=== PATIENT | female | born 1985 | race Caucasian/White ===

== ENCOUNTER 2018-05-31 12:52 | Emergency (ER) | payer OTHER, SELFPAY ==
[2018-05-31 12:54] VITALS: BP 147/91; PULSE 75; RESP 16; TEMP 36.8; O2SAT 97; BMI 40.3
--- NOTE | 2018-05-31 13:16 | CT_ITS ---
STUDY: CT BRAIN WITHOUT CONTRAST REASON FOR EXAM: Female, 32 years old. Dizziness. RADIATION DOSAGE (If Supplied By Facility): CTDIvol = ( 44.99 ) mGy, DLP = ( 745.49 ) mGycm TECHNIQUE: Transaxial CT imaging of the brain was performed without administration of intravenous contrast material. Individualized dose optimization techniques were used for this CT. COMPARISON: None. FINDINGS: Normal soft tissue structures. Normal calvarium. Normal size ventricles and extra-axial spaces for the patient's age. Normal white matter tracts of the cerebral hemispheres. Normal basal ganglia and thalami. Normal brainstem. Normal cerebellum. There is no intracranial hemorrhage. There are no findings of an acute ischemic infarction. Normal visualized paranasal sinuses. CT/Brain/Head without Contrast IMPRESSION: Normal unenhanced CT scan of the brain. Electronically Signed: Shivam Arita MD at 14:49 EDT Tel [phone], Service support ,
[2018-05-31 13:58] LABS: Absolute Neutrophil Count 5.3 X10^3/uL (2.0-7.7); Basophil# 0.03 X10^3/uL; Basophil% 0.4 % (0-1); Eosinophil# 0.15 X10^3/uL; Eosinophils% 1.8 % (0-5); Hematocrit 43.3 % (37-47); Lymphocyte % 22.5 % (19-41); Mean Corp Hgb Conc 32.3 g/gl (32-36); Mean Corpuscular Hgb 29.4 pg (27.0-32.0); Mean Corpuscular Volume 90.8 fL (81-99); Mean Platelet Vol. 9.5 fl (6.2-12.0); Monocyte# 1.06 X10^3/uL; Monocyte% 12.6 % (0-10); Neutrophil # 5.29 X10^3/uL (2.7-7.7); Neutrophil % 62.6 % (47-70); POSITIVE COUNT NO; POSITIVE DIFFERENTIAL NO; POSITIVE MORPHOLOGY NO; Platelet Count 360 K/mm3 (150-450); RBC Distribution Width CV 12.6 % (11.6-14.6); RBC Distribution Width SD 41.8 fl (35.1-43.9); Red Blood Count 4.77 M/mm3 (4.2-5.4); White Blood Count 8.4 K/mm3 (4.4-11.0)
[2018-05-31 14:21] LABS: Pregnancy, Serum, hCG Quali. NEGATIVE Negative (0-9 Nonpreg)
[2018-05-31 14:30] LABS: ALB/GLOB Ratio 1.1 RATIO (0.9-2.4); AST(SGOT) 20 U/L (15-37); Alanine Aminotransfer ALT/SGPT 34 U/L (13-56); Alkaline Phosphatase 103 U/L (45-117); Anion Gap 10 (5-15); BUN 15 mg/dL (7-18); BUN/Creat Ratio 20.6 RATIO (10-20); Calcium,Total 9.3 mg/dL (8.5-10.1); Chloride 103 mmol/L (98-107); Creatinine, Serum 0.73 mg/dL (0.55-1.02); EST Glomerular Filtration Rate 97 mL/min (>60); Est Glom Filt Rate - Afr Amer 118 mL/min (>60); Estimated Creatinine Clearance 94.65 ml/min; Globulin 3.7 g/dL (2.2-4.2); Glucose 152 mg/dL (74-106); Potassium 4.2 mmol/L (3.5-5.1); Protein, Total 7.7 g/dL (6.4-8.2); Sodium Level 138 mmol/L (136-145); Thyroid Stim Hormone (TSH) 3.57 uIU/mL (0.358-3.74)
[2018-05-31] MEDS: 0.9% Normal Saline 1,000 ML 150 ML IV (14:55)
[2018-05-31 15:27] VITALS: BP 121/85; BP 124/84; BP 134/70; PULSE 70; PULSE 71
[2018-05-31 15:33] LABS: Bacteria 0 SEEN /hpf (None Seen); Mucous, Urine 0 SEEN /hpf (<or=2+); Red Blood Cells-Urine 0 SEEN /hpf (0-5); White Blood Cells 0 SEEN /hpf (0-5)
[2018-05-31 16:04] LABS: Color, Urine Yellow (Yellow); Glucose, Dipstick Normal (Normal); Ketone-Dipstick Negative (Negative); Leukocyte Esterase-Dipstick Negative /ul (Negative); Nitrite-Dipstick Negative (Negative); Occult Blood-Urine Negative /ul (Negative); Protein-Dipstick Negative (Negative); Specific Gravity, Urine 1.005 (1.002-1.030); Urine Bilirubin Dipstick Negative (Negative); Urine Clarity Clear (Clear); Urine Urobilinogen Normal (Normal); Urine pH 6.5 (5.0 - 8.0)
--- NOTE | 2018-05-31 16:17 | ED.VISSUMM ---
- ER Visit Summary Date of Service: 05/31/18 Chief Complaint: [Dizziness] History of Present Illness: The patient is a 32 F presents the emergency department with complaint of dizziness that started 2 weeks ago. Patient's had at times a hard time concentrating and some confusion. 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 Patient's been feeling lightheaded intermittently. She denies any fevers. Patient at times feels cold and clammy. Patient's had some intermittent abdominal pain since December and has had a workup including ultrasound which was unremarkable. Last menstrual period was 1 month ago. Patient does have a history of hypertension, cholesterol, and hypothyroidism. Patient has a follow-up appointment with her primary care physician in 3 days. [Patient has not had any fever or cough. She denies any chest pain.] Physical Examination: [HEENT-PERRLA, EOMI. Cranial nerves II through XII grossly intact. TMs clear. Mucous membranes moist. No adenopathy. Cardiovascular-regular rate and rhythm without murmur or ectopy Lungs-clear to auscultation, chest wall stable without crepitus or subcu emphysema Abdomen-normoactive bowel sounds, soft, nontender, no rebound or rigidity, no peritoneal signs. Neuro [id number] and heel clarke testing within normal limits, negative Romberg, negative pronator drift, fundi benign, Hallpike does not elicit any nystagmus or symptoms. Extremities-intact ?4, normal range of motion, normal pulses, atraumatic] Test Results: [CT scan of the brain without contrast showed nothing acute. CBC with differential was normal. Chemistries were normal. Glucose was slightly elevated 152. LFTs were normal. Urinalysis was normal. HCG was negative. TSH was 3.57. Orthostatics were negative.] Emergency Department Course and Treatment: [At this point etiology of symptoms unclear] Treatment Plan: [Patient advised to follow-up with her primary care physician 3-5 days] Disposition: [Discharged home in stable condition] Impression: [Dizziness-etiology uncertain Confusion-etiology uncertain Hyperglycemia] This note was generated with [employer]ire[employer] software. It may contain incorrect words, spelling, and punctuation that were not noted in review of the chart prior to signing ED Disposition - Plan for ED Patient: Chief Complaint: Dizziness Referrals: Francisco Javier Leigh [Primary Care Provider] -
[2018-05-31 16:19] LABS: Squamous Epithelial Cells - UA 0-5 SEEN /hpf (5-10)
--- NOTE | 2018-05-31 16:20 | ED.DCSUM_ITS ---
- ER Visit Summary Date of Service: 05/31/18 Chief Complaint: [Dizziness] History of Present Illness: The patient is a 32 F presents the emergency department with complaint of dizziness that started 2 weeks ago. Patient's had at times a hard time concentrating and some confusion. 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 Patient's been feeling lightheaded intermittently. She denies any fevers. Patient at times feels cold and clammy. Patient's had some intermittent abdominal pain since December and has had a workup including ultrasound which was unremarkable. Last menstrual period was 1 month ago. Patient does have a history of hypertension, cholesterol, and hypothyroidism. Patient has a follow- up appointment with her primary care physician in 3 days. [Patient has not had any fever or cough. She denies any chest pain.] Physical Examination: [HEENT-PERRLA, EOMI. Cranial nerves II through XII grossly intact. TMs clear. Mucous membranes moist. No adenopathy. Cardiovascular-regular rate and rhythm without murmur or ectopy Lungs-clear to auscultation, chest wall stable without crepitus or subcu emphysema Abdomen-normoactive bowel sounds, soft, nontender, no rebound or rigidity, no peritoneal signs. Neuro rdxo-weomva-mjhd and heel clarke testing within normal limits, negative Romberg, negative pronator drift, fundi benign, Hallpike does not elicit any nystagmus or symptoms. Extremities-intact ?4, normal range of motion, normal pulses, atraumatic] Test Results: [CT scan of the brain without contrast showed nothing acute. CBC with differential was normal. Chemistries were normal. Glucose was slightly elevated 152. LFTs were normal. Urinalysis was normal. HCG was negative. TSH was 3.57. Orthostatics were negative.] Emergency Department Course and Treatment: [At this point etiology of symptoms unclear] Treatment Plan: [Patient advised to follow-up with her primary care physician 3- 5 days] Disposition: [Discharged home in stable condition] Impression: [Dizziness-etiology uncertain Confusion-etiology uncertain Hyperglycemia] This note was generated with eleniation software. It may contain incorrect words, spelling, and punctuation that were not noted in review of the chart prior to signing ED Disposition - Plan for ED Patient: Chief Complaint: Dizziness Referrals: Francisco Javier Leigh [Primary Care Provider] -
--- NOTE | 2018-05-31 16:20 | ED.DEP ---
ED Disposition - Plan for ED Patient: Chief Complaint: Dizziness Instructions: ED Dizziness [facility] Referrals: Francisco Javier Leigh [Primary Care Provider] - 3-5 Days
[2018-05-31 16:36] VITALS: BP 137/76; PULSE 79; RESP 18; O2SAT 99
== END 2018-05-31 16:37 | disposition home or self-care (01) ==
PROVIDERS: Emergency Provider Emergency Medicine; Family Provider Family Medicine; PCP Family Medicine
DX: R42 Dizziness and giddiness (principal); R41.0 Disorientation, unspecified; R73.9 Hyperglycemia, unspecified; I10 Essential (primary) hypertension; E78.00 Pure hypercholesterolemia, unspecified; E03.9 Hypothyroidism, unspecified; Z79.899 Other long term (current) drug therapy
CPT/HCPCS: 70450; 80053; 81001; 84443; 84703; 85025; 96360; 96361; 99285; J7030; A4216

== ENCOUNTER → 2024-11-21 | Outpatient (CLI) | payer OTHER, SELFPAY ==
--- NOTE | 2024-11-21 14:56 | BI_ITS ---
MAMMOGRAPHY - BILATERAL SCREENING 3-D TOMOSYNTHESIS REASON FOR EXAM: Female, 38 years old. screening mammogram PERTINENT HISTORY: No significant family history. TECHNIQUE: 2-D mammograms and 3-D Tomosynthesis of the breast (s) were performed. CAD was performed. COMPARISON: None. FINDINGS: The breast composition is composed of scattered fibroglandular density. Scattered benign calcifications are seen. No dense spiculated masses or suspicious microcalcifications are identified. No architectural distortion is identified. There is no skin thickening or retraction. There has been no significant change since the prior study. BI/SCRN MAMM (CAD)W/BAYLEE BILAT IMPRESSION: No mammographic signs of malignancy. Routine yearly mammograms recommended. ASSESSMENT CATEGORY: BIRADS Category 1: Negative. A letter regarding these results will be sent to the patient by the facility within 30 days. FOLLOW UP RECOMMENDATION: Yearly follow up mammogram recommended. (A) Approximately 10% of breast cancers are not detected by mammography. A normal mammogram should not delay biopsy of a clinically suspicious abnormality. Electronically Signed: Joe Vallejo MD at 18:03 EST ,
== END | disposition home or self-care (01) ==
LOC: OPBI 14:56
PROVIDERS: Referring Provider Advanced Practice Midwife; Visit Provider Advanced Practice Midwife
DX: Z12.31 Encounter for screening mammogram for malignant neoplasm of breast (principal)
CPT/HCPCS: 77063; 77067

== ENCOUNTER → 2025-03-24 | Outpatient (CLI) | payer OTHER, SELFPAY ==
[2025-03-29 13:07] LABS: HPV APTIMA, High Risk Negative (Negative)
== END | disposition home or self-care (01) ==
LOC: LABSPEC 16:26
PROVIDERS: Referring Provider Obstetrics & Gynecology; Visit Provider Obstetrics & Gynecology
DX: Z12.4 Encounter for screening for malignant neoplasm of cervix (principal)
CPT/HCPCS: 87624; 88175; G0145

== ENCOUNTER → 2025-03-30 | Outpatient (CLI) | payer OTHER, SELFPAY ==
--- NOTE | 2025-03-30 07:48 | US_ITS ---
PROCEDURE: PELVIC W/ TRANSVAGINAL (USPELTVAG), 03/30/2025 REASON FOR EXAM: OVARIAN CYST FOLLOW-UP TECHNIQUE: Grayscale, color Doppler, and spectral Doppler transabdominal and transvaginal pelvic ultrasound was performed. COMPARISON: None FINDINGS: Uterus: 6.8 x 4.0 x 4.0 cm, Anteflexed. Unremarkable echotexture. Endometrium: 6 mm, unremarkable. Cervix: Unremarkable. Right ovary: 3.4 x 1.9 x 1.7 cm. Unremarkable. Normal low resistance arterial waveforms. Left ovary: 4.9 x 4.4 x 4.0 cm. 3.9 x 3.6 x 2.9 cm simple appearing unilocular cyst. Normal low resistance arterial waveforms. Free fluid: None visualized. Other: Estimated bladder volume 178 mL. US/Pelvic w/ Transvaginal IMPRESSION: 1. 3.9 cm simple appearing LEFT ovarian cyst. Comparison with reported outside imaging would be helpful. If this has persisted for an extended period of time or has enlarged, this may reflect a benign neopl asm such as a cystadenoma. If follow-up interval is shorter, this may reflect a functional cyst. Per O-RADS this is O-RADS 2, n o specific follow-up required in a premenopausal patient, however if this has enlarged, follow-up may be prudent. 2. Additional description as above. Reading Location: [id number]
== END | disposition home or self-care (01) ==
LOC: OPUS 07:47
PROVIDERS: Referring Provider Obstetrics & Gynecology; Visit Provider Obstetrics & Gynecology
DX: N83.209 Unspecified ovarian cyst, unspecified side (principal)
CPT/HCPCS: 76830; 76856

== ENCOUNTER → 2025-05-12 | Outpatient (CLI) | payer OTHER, SELFPAY ==
--- NOTE | 2025-05-12 16:42 | US_ITS ---
PROCEDURE: PELVIC (NON ) 05/12/2025 REASON FOR EXAM: FU US FROM OVARIAN CYST TECHNIQUE: Transabdominal pelvic ultrasound COMPARISON: 03/30/2025. FINDINGS: Normal uterus measuring 7.1 x 4.3 x 2.7 cm. Normal right ovary measuring 3.6 x 3.1 x 2.4 cm. Normal left ovary measuring 2.5 x 1.9 x 1.6 cm. Normal bilateral ovarian flow without evidence of ovarian torsion. The endometrium is normal in thickness measuring 3.1 mm. Normal cervix. No free fluid in the pelvic cul-de-sac. Underdistended bladder measuring 99 cc in volume. US/Pelvic (Non ) IMPRESSION: Unremarkable exam. No residual left ovarian cyst. Reading [facility]
== END | disposition home or self-care (01) ==
LOC: US 16:40
PROVIDERS: Referring Provider Obstetrics & Gynecology; Visit Provider Obstetrics & Gynecology
DX: N83.299 Other ovarian cyst, unspecified side (principal)
CPT/HCPCS: 76856

== ENCOUNTER → 2025-08-05 | Outpatient (CLI) | payer OTHER, SELFPAY ==
--- OUTSIDE RECORDS SUMMARY | 2025-08-05 10:35 | XMS RPT_ITS | CCD ---
Author Organization [facility] CliniSyoh Care Team Providers Care Mold Dumper Name Role Phone No, Physician Unavailable Unavailable Unavailable Unavailable Unavailable Rodrick Bangura Unavailable Unavailable Rodrick Bangura Unavailable Unavailable Aaron Leigh Unavailable Unavailable [place], Michelle C Unavailable Unavailable [place], Michelle C Unavailable Unavailable [place], Michelle C Unavailable Unavailable [place], Michelle C Unavailable Unavailable [place], Michelle C Unavailable Unavailable [place], Michelle C Unavailable Unavailable [place], Michelle C Unavailable Unavailable [place], Michelle C Unavailable Unavailable [place], Michelle C Unavailable Unavailable [place], Michelle C Unavailable Unavailable Aaron Leigh Unavailable Unavailable Aaron Leigh Unavailable Unavailable Aaron Leigh Unavailable Unavailable Aaron Leigh Unavailable Unavailable Aaron Leigh Primary Care Provider Aaron Leigh Primary Care Provider NO, PHYSICIAN Primary Care Unavailable CHRISTIANA YOUNG Attending Unavaila AARON Teague Primary Care Unavailable MIRNA BLANKENSHIP Attending Unavailab le AARON LEIGH Primary Care Unavailable MEGHNA SANTOS Attending Unavail able AARON LEIHG Primary Care Unavailable CHRISTIANA YOUNG Attending Unavaila ble CHRISTIANA YOUNG Admitting Unavaila ble CHRISTIANA YOUNG Referring Unavaila AARON Teague Primary Care Unavailable Aaron Leigh Primary Care Provider [phone] Aaron Leigh Primary Care Provider Aaron Leigh Primary Care Provider Aaron Leigh Primary Care Provider No, Physician Primary Care Provider Unavailabl e Lu OLEA, Aaron Vargas Primary Care Provider Lu OLEA, Aaron Vargas Primary Care Provider [phone] Aaron Leigh MD Primary Care Provider Aaron Leigh MD Primary Care Provider Aaron Leigh MD Primary Care Provider [phone] Aaron Leigh Primary Care Provider Aaron Leigh MD Primary Care Provider Aaron Leigh MD Primary Care Provider Aaron Leigh MD Primary Care Provider Carmen Mckeon PA-C Primary Care Provider [phone] Mike HERNANDEZ Carmen Primary Care Provider [phone] CARMEN MCKEON Primary Care Unavailable BRIT GARCÍA Referring Unavailable BRIT GARCÍA Attending Unavailable BRIT GARCÍA Attending Unavailable MIKE CARMEN Primary Care Unavailable BRIT GARCÍA Referring Unavailable RILEY ALVAREZA Attending Unavailable MIKE CARMEN Primary Care Unavailable [facility], JESUS Referring [facility]available [facility] Primary Care Unavailable ELISABETH GREGG Referring Unavailable [facility], JESUS Attending Unavailable MIKE CARMEN Primary Care Unavailable NOEMI ROBIN Referring Unavailable NOEMI ROBIN Attending Unavailable KIM, JESUS Attending Unavailable MIKECARMEN Referring Unavailable [facility] Primary Care Unavailable [facility], JESUS Attending Unavailable MIKE CARMEN Referring Unavailable [facility] Primary Care Unavailable Yolande SUE, Coreen Aguila Unavailable AARON LEIGH Primary Care Unavailable KENDRA HARRY Attending Unavailable KIM, JESUS BARBARA Admitting Unavailable KIM, JESUS BARBARA Referring Unavailable AARON LEIGH Primary Care Unavailable KENDRA HARRY Attending Unavailable KIM, JESUS BARBARA Admitting Unavailable KIM, JESUS BARBARA Referring Unavailable TOMCHAK, AARON BRAYAN Primary Care Unavailable KENDRA HARRY Attending Unavailable KIM, JESUS BARBARA Admitting Unavailable KIM, JESUS BARBARA Referring Unavailable [facility] AARON VARGAS Primary Care Unavailable KENDRA HARRY Attending Unavailable KIM, JESUS BARBARA Referring Unavailable KIM, JESUS BARBARA Admitting Unavailable Carmen Mckeon PA-C Primary Care Provider Yolande LANDRYN-VICE PRESIDENT [employer], Coreen Aguila Unavailable Dr. Millicent Cervantes DO Attending Provider Dr. Millicent Cervantes DO Referring Provider CARMEN MCKEON Primary Care Provider [phone] CARMEN MCKEON Primary Care Provider Unavailab CARMEN Lo Referring Provider Unavailable ANTWON MARTIN Attending [facility]available [facility] AARON BRAYAN Primary Care Unavailable [facility] Primary Care Unavailable ALEX CROWLEYA Eileen Attending Unavailable OSORIO LAGUNA Attending Unavailable [facility], AARON VARGAS Primary Care Unavailable [facility] AARON VARGAS Primary Care Unavailable CROWLEYSHAKIR WALDRON Attending Unavailable [facility], AARON BRAYAN Primary Care Unavailable CROWLEY, SHAKIR M Attending Unavailable [facility] Primary Care Unavailable CROWLEYALEXA M Attending Unavailable [facility], AARON BRAYAN Primary Care Unavailable CROWLEY SHAKIR M Attending Unavailable ANTWON MARTIN Attending Unavailable [facility] AARON BRAYAN Primary Care Unavailable [facility] Primary Care Unavailable ANTWON MARTIN Attending Unavailable [facility], [facility] Primary Care Unavailable FANANTWON GIL Attending Unavailable FANELLOANTWON Attending Unavailable [facility] Primary Care Unavailable FANANTWON GIL Attending Unavailable [facility] Primary Care Unavailable [facility] Primary Care Unavailable ANTWON MARTIN Attending Unavailable KIM, JESUS Referring Unavailable CARMEN MCKEON Primary Care Unavailable DURGA II, GUILLERMO B Attending Unavailable CARMEN MCKEON Attending Unavailable SELF, SELF Referring Unavailable CARMEN MCKEON Primary Care Unavailable CARMEN MCKEON Primary Care Unavailable DURGA II, GUILLERMO B Referring Unavailable DURGA II, GUILLERMO B Attending Unavailable CARMEN MCKEON Primary Care Unavailable CARMEN MCKEON Referring Unavailable COREEN LANIER Attending Unavailable [facility] Primary Care Unavailable KIM, JESUS Referring Unavailable KIM, JESUS Attending Unavailable CARMEN MCKEON Attending Unavailable [facility] Primary Care Unavailable SELF, SELF Referring Unavailable [facility] Primary Care Unavailable MIKE[facility] Primary Care Unavailable SELF, SELF Referring Unavailable NOEMI ROBIN Attending Unavailable [facility] Primary Care Unavailable TAUSCH, ROBSON Referring Unavailable TAUSCH, ROBSON Attending Unavailable CARMEN MCKEON Referring Unavailable KIM, JESUS Attending Unavailable [facility] Primary Care Unavailable KIM, JESUS Attending Unavailable KIM, JESUS Referring Unavailable [facility] Primary Care Unavailable [facility] Primary Care Unavailable CARMEN MCKEON Attending Unavailable SELF, SELF Referring Unavailable MIKE, CARMEN Referring Unavailable KIM, JESUS Attending Unavailable [facility] Primary Care Unavailable [facility] Primary Care Unavailable DURGA II, GUILLERMO B Attending Unavailable DURGA II, GUILLERMO B Referring Unavailable KIM, JESUS Attending Unavailable KIM, JESUS Referring Unavailable [facility] Primary Care Unavailable [facility] Primary Care Unavailable DURGA II, GUILLERMO B Attending Unavailable DURGA II, GUILLERMO B Referring Unavailable [facility] Primary Care Unavailable SELF, SELF Referring Unavailable NOEMI ROBIN Attending Unavailable [facility] Primary Care Unavailable DURGA II, GUILLERMO B Referring Unavailable DURGA II, GUILLERMO B Attending Unavailable CARMEN MCKEON Referring Unavailable KIM, JESUS Attending Unavailable [facility] Primary Care Unavailable [facility] Primary Care Unavailable SELF, SELF Referring Unavailable SHANICE BERGER Attending Unavailable [facility] Primary Care Unavailable CARMEN MCKEON Attending Unavailable SELF, SELF Referring Unavailable [facility] Primary Care Unavailable TAUSCH, ROBSON Referring Unavailable OMID COFFEY Attending Unavailable [facility] Primary Care Unavailable DURGA II, GUILLERMO B Attending Unavailable DURGA II, GUILLERMO B Referring Unavailable CARMEN MCKEON Attending Unavailable SELF, SELF Referring Unavailable MIKE, [facility] Primary Care Unavailable CARMEN MCKEON Attending Unavailable [facility] Primary Care Unavailable CARMEN MCKEON Referring Unavailable CARMEN MCKEON Primary Care Unavailable CARMEN MCKEON Attending Unavailable SELF, SELF Referring Unavailable BALBIR MALAGON Attending Unavailable ELISABETH GREGG Adamaris Referring Unavailable CARMEN MCKEON Primary Care Unavailable Vande Velde , Dr. Ricks Attending Provider Dr. Millicent Cervantes DO Referring Provider Diamante Khalil Referring Unavailable Diamante Khalil Attending Unavailable TERE, Primary Care Unavailable Vande Velde, Millicent Referring Unavailabl e Vande Velde, Millicent Attending Unavailabl e TERE, HERRERA Primary Care Unavailable Vande Velde, Millicent Attending Unavailabl e Vande Velde, Millicent Attending Unavailabl e Vande Velde, Millicent Attending Unavailabl e TERE, Primary Care Unavailable Vande Velde, Millicent Attending Unavailabl e TERE, HERRERA Referring Unavailable Vande Velde, Millicent Referring Unavailabl e Vande Velde, Millicent Attending Unavailabl e Vande Velde, Millicent Referring Unavailabl e Vande Velde, Millicent Attending Unavailabl e Allergies Allergy Classification Reported Allergen(s) Allergy Type Date of Onset Reaction(s) Facility Bee/Wasp/Ant Venom (4 sources) bee venom Substance Allergy 5 [facility] (20 sources) Bee Venom Protein (Honey Bee); Translations: [Unknown] Propensity to adverse reactions to drug 5 [facility] (20 sources) Seasonal allergy Propensity to adverse reactions to drug 0 [facility] (1 source) Bees Allergy to substance 5 [facility] (20 sources) *Animal Dander Propensity to adverse reactions to substance 3 [facility] (20 sources) Animal Dander; Translations: [ANIMAL DANDER] Propensity to adverse reactions to drug 3 Other (See Comments) [facility] (1 source) bee venom Propensity to adverse reactions to drug 5 [facility] Medications Current Medications Medication Drug Class(es) Dates Sig (Normalized) Sig (Original) Accu-Chek Guide Me Glucose Mtr Misc (20 sources) Start: 12-03-2021 Accu-Chek Guide Me Glucose Mtr Mis USE TO TEST BLOOD SUGAR ONCE DAILY 12/03/2021 Active Start: 12-03-2021 Accu-Chek Guid e Me Glucose [facility] Misc USE TO TEST BLOOD SUGAR ONCE DAILY 0 12/03/2021 Active amoxicillin 500 mg oral capsule (1 source) Penicillin-class Antibacterial Start: 02-11-2020 End: 02-21-2020 take 1 capsule by mouth three times daily amoxicillin 500 MG capsule Take 1 capsule by mouth 3 times daily for 10 days. 30 capsule 0 02/11/2020 02/21/2020 Active amoxicillin 875 mg / clavulanate 125 mg oral tablet (3 sources) Penicillin-class Antibacterial Start: 11-28-2023 End: 12-08-2023 take 1 tablet by mouth every twelve hours Amoxicillin-clavula eliot 875-125 MG tablet Indications: Acute bacterial rhinosinusitis Take 1 tablet by mouth every 12 hours for 10 days. 20 tablet 0 11/28/2023 12/08/2023 Active Start: 02-05-2019 End: 02-19-2019 take 1 tablet by mouth twice daily amoxicillin-clavulanate (AUGMENTIN) 875-125 mg per tablet Indications: Frontal sinusitis, unspecified chronicity Take 1 (one) tablet by mouth 2 (two) times a day for 14 days . 28 tablet 0 02/05/2019 02/19/2019 Active apple cider vinegar 500 mg o ral tablet (20 sources) Start: 03-24-2025 Apple Cider Vi john 500 mg tablet Active mg PO March 24, 2025 12:00am [employer] VINE GAR PO Take by mouth daily. Active ASHWAGANDHA PO (7 sources) ASHWAGANDHA PO T jean marie 600 mg by mouth 2 times daily. KSM-66 0 Active aspirin 81 mg delayed release oral tablet (20 sources) Platelet Aggregation Inhibitor, Nonsteroidal Anti-inflammatory Drug Start: take 1 tablet by mouth once daily Aspirin 81 mg tablet,delayed release (DR/EC) Active 81 mg PO daily March 24, 2025 12:00am Start: 03-24-2025 End: 04-16-2022 take 1 tablet by mouth once daily Aspirin 81 mg tablet,delayed release (DR/EC) Active 81 mg PO daily March 24, 2025 12:00am take 1 tablet by zenon th once daily Aspirin [address] tablet Take 1 tablet by mouth daily. Active atenolol 25 mg oral tablet (20 sources) beta-Adrenergic Archana Start: 03-10-2024 take 2 tablets by mouth once daily Atenolol (Tenormin) 25 mg tablet Active 50 mg PO DAILY March 10, 2024 4:14pm Start: 12-17-2023 End: 06-05-2025 take 1 tablet by mouth once daily Atenolol 50 MG tablet Indications: Paroxysmal atrial fibrillation Take 1 tablet by mouth daily. 90 tablet 1 06/05/2025 Active Start: 05-31-2018 End: 03-10-2024 take 1 tablet by mouth once daily Atenolol (Tenormin) 25 MG tablet Discontinued 25 mg PO DAILY May 31, 2018 12:00am March 10, 2024 4:16pm Start: 12-23-2016 take 0.5 tablet by m outh once daily atenolol (TENORMIN) 25 MG tablet Take 0.5 (one-half) tablet (12.5 mg total) by mouth daily . 12/23/2016 Active Start: 12-23-2016 atenolol 25 MG tablet Take 12.5 mg by mouth. 0 12/23/2016 Active Comment on above: Take 0.5 tablets by mouth once daily. azithromycin 250 mg oral tablet (1 source) Macrolide Antimicrobial Start: 12-07-19 End: 12-12-19 Azithromycin (Zithromax Z-Valeria) 250 MG tablet Take 2 tablets (500 mg) on Day 1, then 1 tablet (250 mg) daily on Days 2-5 6 tablet 0 12/07/2023 12/12/2023 Active bacitracin 0.5 unt/mg topical ointment (1 source) Start: 06-09-20 End: 06-10-20 bacitracin ointment 1 Application biotin 10 mg oral capsule (5 sources) Biotin 10 MG cap rima Take by mouth. 0 Active Blood Glucose Monitoring Suppl (ONE TOUCH ULTRA 2) w/Device Kit (2 sources) Start: 03-26-20 Blood Glucose Monitoring Suppl (ONE TOUCH ULTRA 2) w/Device Kit USE TO TEST BLOOD GLUCOSE ONCE DAILY 0 03/26/2023 Active Boswellia-Glucosamine -Vit D (OSTEO BI-FLEX ONE PER DAY PO) (12 sources) Boswellia-Glucos garcia e-Vit D (OSTEO BI-FLEX ONE PER DAY PO) Take by mouth. 0 Active cefdinir 300 mg oral capsule (1 source) Cephalosporin Antibacterial Start: 01-20-20 End: 01-31-20 take 1 capsule by mouth twice daily cefdinir (OMNICEF) 300 MG capsule Take 1 (one) capsule (300 mg total) by mouth 2 (two) times a day for 10 days . 20 capsule 0 01/20/2019 01/30/2019 Active cephalexin 500 mg oral capsule (4 sources) Cephalosporin Antibacterial Start: 09-02-20 End: 09-12-20 take 1 capsule by mouth twice daily cephALEXin 500 MG capsule Indications: Paronychia of finger, unspecified laterality Take 1 capsule by mouth 2 times daily for 10 days. 20 capsule 09/02/2024 09/12/2024 Active Start: 02-24-2023 End: 03-03-2023 take 1 capsule by mouth every twelve hours cephALEXin 500 MG capsule Take 1 capsule by mouth every 12 hours for 7 days. 14 capsule 0 02/24/2023 03/03/2023 Active Start: 10-12-2020 End: 10-19-2020 take 1 capsule by mouth twice daily cephALEXin 500 MG capsule Indications: Pierced ear infection, left, initial encounter Take 1 capsule by mouth 2 times daily for 7 days. 14 capsule 0 10/12/2020 10/19/2020 Active Start: 05-15-2020 End: 05-25-2020 take 1 capsule by mouth twice daily cephALEXin 500 MG capsule Indications: Pierced ear infection, right, initial encounter Take 1 capsule by mouth 2 times daily for 10 days. 20 capsule 0 05/15/2020 05/25/2020 Active cetirizine hydrochloride 10 mg oral tablet (20 sources) Histamine-1 Receptor Antagonist Start: 06-23-2024 End: 12-19-2024 take 1 tablet by mouth once daily Cetirizine 10 MG tablet Indications: Chronic sinusitis, unspecified location , Allergic rhinitis due to dust Take 1 tablet by mouth daily. 30 tablet 2 09/20/2024 Active Start: 12-24-2023 End: 06-18-2024 take 1 tablet by mouth once daily Cetirizine 10 MG tablet Indications: Chronic sinusitis, unspecified location , Allergic rhinitis due to dust Take 1 tablet by mouth daily. 30 tablet 2 03/20/2024 06/18/2024 Active ciprofloxacin 500 mg oral tablet (1 source) Quinolone Antimicrobial Start: 06-13-2021 End: 06-16-2021 take 1 tablet by mouth twice daily ciprofloxacin 500 MG tablet Take 1 tablet by mouth 2 times daily for 3 days. 6 tablet 0 06/13/2021 06/16/2021 Active COLOSTRUM PO (8 sources) Start: 11-11-2024 COLOSTRUM PO 11/11/2024 Active cyclobenzaprine hydrochloride 10 mg oral tablet (1 source) Muscle Relaxant Start: 10-19-2019 End: 10-29-2019 take 1 tablet by mouth twice daily as needed for muscle spasms cyclobenzaprine (FLEXERIL) 10 MG tablet Take 1 (one) tablet (10 mg total) by mouth 2 (two) times a day as needed for muscle spasms . 30 tablet 0 10/19/2019 10/29/2019 Active diclofenac sodium 75 mg delayed release oral tablet (4 sources) Nonsteroidal Anti-inflammatory Drug Start: 05-24-2024 End: 06-03-2024 take 1 tablet by mouth twice daily diclofenac EC [address] tablet Indications: Posterior tibial tendinitis of right lower extremity , Posterior tibial tendon dysfunction, bilateral Take 1 tablet by mouth 2 times daily for 10 days. 20 tablet 1 05/24/2024 06/03/2024 Active Start: 12-20-2019 End: 01-19-2020 diclofenac sodium 1 % Gel Ap ply 2 (two) g topically 4 (four) times a day . 240 g 0 12/20/2019 01/19/2020 Active docosahexaenoic acid 120 mg / eicosapentaenoic acid 180 mg oral capsule (5 sources) Bagley-3 Fatty Ac ids (Fish Oil) 1000 MG capsule Take by mouth. 0 Active empagliflozin 25 mg oral tablet (20 sources) Sodium-Glucose Cotransporter 2 Inhibitor Start: 025 take 1 tablet by mouth once daily Empagliflozin (Jardiance) 25 mg tablet Active 25 mg PO daily March 24, 2025 12:00am Start: 09-26-2024 End: 12-06-2024 take 1 tablet by mouth once daily before breakfast Empagliflozin (Jardiance) 10 MG tablet Indications: Type 2 diabetes mellitus with hyperglycemia, without long-term current use of insulin Take 1 tablet by mouth every morning before breakfast. 30 tablet 3 09/26/2024 12/06/2024 Discontinued Start: 04-14-2024 End: 04-14-2024 take 1 tablet by mouth once daily before breakfast Empagliflozin (Jardiance) 10 MG tablet Indications: Type 2 diabetes mellitus with hyperglycemia, without long-term current use of insulin Take 1 tablet by mouth every morning before breakfast. 30 tablet 3 04/14/2024 Active escitalopram 10 mg oral tablet (20 sources) Serotonin Reuptake Inhibitor Start: 12-07-2024 End: 06-05-2025 take 1 tablet by mouth once daily Escitalopram Oxalate (Lexapro) 10 mg tablet Active 10 mg PO daily March 24, 2025 12:00am Start: 12-03-2021 End: 12-07-2024 take 1 tablet by mouth once daily escitalopram oxalate (LEXAPRO) 5 MG tablet Take 1 (one) tablet (5 mg total) by mouth daily . 12/03/2021 Active Flaxseed, Linseed, (GROUND FLAX SEEDS PO) (8 sources) Start: 11-11-2024 Flaxseed, Rossy eed, (GROUND FLAX SEEDS PO) 11/11/2024 Active fluticasone propionate 0.05 mg/actuat metered dose nasal spray (20 sources) Corticosteroid Start: 03-24-2025 take 50 ug nasal route once daily Fluticasone Propionate (Flonase Allergy Relief) 50 mcg/actuation spray,suspension Active 1 NMA INTRANASAL daily March 24, 2025 12:00am administer into each nostril Start: 11-16-2023 End: 11-16-2023 fluticasone 50 MCG/ACT Suspe nsion nasal spray Indications: Nasal congestion 2 sprays by Nasal route daily. 16 g 1 11/16/2023 Active Icxcztm-Rotswv-Ii Chondr-MSM 485-718-440-83 MG tablet (8 sources) Start: 11-04-2024 Aqsytaj-Phvsfa-Yn Chondr-MSM 011-129-432-83 MG tablet 11/04/2024 Active 12 hr guaiFENesin 600 mg extended release oral tablet (1 source) Start: 01-20-2019 End: 01-30-2019 take 1 tablet by mouth twice daily guaiFENesin (MUCINEX) 600 mg 12 hr tablet Take 1 (one) tablet (600 mg total) by mouth 2 (two) times a day for 10 days . 20 tablet 0 01/20/2019 01/30/2019 Active HERBAL PRODUCT (10 sources) HERBAL PRODUCT Glucosamine/Collagen/V itamin C po daily Active 3 ml insulin glargine 100 unt/ml pen injector (20 sources) Insulin Analog Start: 06-08-2024 End: 12-06-2024 Lantus Solostar U-100 Insulin 100 unit/mL (3 mL) InPn Inject 20 Units under the skin Every evening as needed. 12/27/2024 Active Start: 03-10-2024 End: 08-01-2025 Insulin Glargine (Lantus Miley ostar U-100 Insulin) 100 unit/mL (3 mL) insulin pen Discontinued 20 U SC EVERY EVENING March 10, 2024 12:00am August 01, 2025 9:28am Start: 01-19-2024 End: 04-14-2024 Lantus SoloStar 100 UNIT/ML Solution Pen-injector injection Indications: Type 2 diabetes mellitus with hyperglycemia, without long-term current use of insulin Inject 20 Units under the skin Every evening as needed. 15 mL 04/14/2024 Active Lantus SoloStar 100 UNIT/ML Solution Pen-injector injection Inject 15 Units under the skin Every evening as needed. 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 90 tablet 1 11/16/2023 Active Start: 03-22-2020 levothyroxine 125 MCG tablet Take 100 mcg by mouth daily. 100mcg 0 03/22/2020 Active Start: 05-31-2018 End: 03-10-2024 take 1 tablet by mouth once daily Levothyroxine 125 MCG tablet Discontinued 125 ug PO DAILY May 31, 2018 12:00am March 10, 2024 4:14pm Start: 12-31-2015 take 1 tablet by zenon th once daily levothyroxine (SYNTHROID, LEVOTHROID) 100 MCG tablet Take 1 (one) tablet (100 mcg total) by mouth once daily . 12/31/2015 Active Start: 12-31-2015 End: 05-15-2020 take 1 tablet by mouth once daily levothyroxine (SYNTHROID, LEVOTHROID) 112 MCG tablet Take 1 (one) tablet (112 mcg total) by mouth once daily . 0 12/31/2015 Active Comment on above: Take 1 tablet by zenon th once daily. lidocaine 0.05 mg/mg medicated patch (4 sources) Antiarrhythmic, Amide Local Anesthetic Start: 12-20-19 End: 01-19-20 20 apply 1 dose transdermal route once daily, then apply 1 dose transdermal route every twelve hours lidocaine (LIDODERM) 5 % patch Place 1 (one) patch on the skin daily Remove & Discard patch within 12 hours or as directed by . 30 patch 0 12/20/2019 01/19/2020 Active lisinopril 5 mg oral tablet (20 sources) Angiotensin Converting Enzyme Inhibitor Start: 06-23-20 17 take 1 tablet by mouth once daily Lisinopril (Zestril) 5 MG tablet Active 5 mg PO DAILY May 31, 2018 12:00am metFORMIN hydrochloride 500 mg oral tablet (20 sources) Biguanide Start: 03-10-20 24 take 2 tablets by mouth twice daily Metformin 500 mg tablet Active 1000 mg PO TWICE A DAY March 10, 2024 4:15pm Start: 02-26-2023 End: 03-10-2024 take 1 tablet by mouth twice daily Metformin 500 mg tablet Discontinued 500 mg PO TWICE A DAY February 26, 2023 12:00am March 10, 2024 4:16pm Start: 12-01-2018 End: 06-05-2025 take 2 tablets by mouth twice daily, then take 2 tablets by mouth twice daily metFORMIN-XR 500 MG Tab SR 24 HR Indications: Type 2 diabetes mellitus without complication, without long-term current use of insulin Take 2 tablets by mouth 2 times daily. 2 tablets bid 360 tablet 1 06/05/2025 Active Start: 12-01-2018 take 1 tablet by zenon once daily at breakfast metFORMIN (GLUCOPHAGE-XR) 500 MG 24 hr tablet Take 1 (one) tablet (500 mg total) by mouth daily with breakfast . 12/01/2018 Active Start: 12-01-2018 metFORMIN-XR 5 00 MG Tab SR 24 HR 2 times daily. 0 12/01/2018 Active Start: 12-01-2018 metFORMIN (GLU COPHAGE-XR) 500 MG 24 hr tablet methylPREDNISolone (20 sources) Corticosteroid Start: 06-23-2022 methylPREDNISo lone (Medrol, Valeria,) 4 mg tablet follow package directions . 21 tablet 06/23/2022 Active Start: 06-23-2022 methylPREDNISo lone (Medrol, Valeria,) 4 mg tablet follow package directions . 21 tablet 0 06/23/2022 Active Start: 12-02-2020 methylPREDNIso lone 4 MG Tab Therapy Pack tablet Indications: Strain of lumbar region, initial encounter Take as directed PO 21 tablet 0 12/02/2020 Active Start: 10-19-2019 End: 04-16-2022 methylPREDNISolone (Medrol, Valeria,) 4 mg tablet follow package directions . 21 tablet 0 10/19/2019 04/16/2022 Discontinued (Error) Start: 10-19-2019 methylPREDNISo lone (Medrol, Valeria,) 4 mg tablet follow package directions . 21 tablet 0 10/19/2019 Active Misc. Devices Misc (20 sources) Mounjaro 2.5 mg/0.5 mL Pen (20 sources) Start: 02-03-2023 inject 2.5 mg by subcutaneous injection every week Mounjaro 2.5 mg/0.5 mL Pen INJECT 2.5MG SUBCUTANEOUS ROUTE EVERY WEEK FOR 4 WEEKS 02/03/2023 Active Start: 02-03-2023 inject 2.5 mg by sub cutaneous injection every week Mounjaro 2.5 mg/0.5 mL Pen INJECT 2.5MG SUBCUTANEOUS ROUTE EVERY WEEK FOR 4 WEEKS 0 02/03/2023 Active Mounjaro 5 mg/0.5 mL Pen (2 sources) inject 5 mg by subcutaneous injection every week Mounjaro 5 mg/0.5 mL Pen inject 5 mg under the skin once a week. Active Mounjaro 5 MG/0.5ML Solution Pen-injector (2 sources) Start: inject 5 mg by subcutaneous injection every week Mounjaro 5 MG/0.5ML Solution Pen-injector INJECT 5MG BY SUBCUTANEOUS ROUTE EVERY WEEK 0 03/02/2023 Active Multiple Vitamins-Minerals (WOMENS MULTI PO) (2 sources) Start: Multiple Vitamins-Minerals (WOMENS MULTI PO) 03/14/2025 Active nitrofurantoin, macrocrystals 25 mg / nitrofurantoin, monohydrate 75 mg oral capsule (2 sources) Nitrofuran Antibacterial Start: End: take 1 capsule by mouth twice daily Nitrofurantoin, macrocrystal-monohy drate, 100 MG capsule Take 1 capsule by mouth 2 times daily for 5 days. Take w/ food/milk 10 capsule 03/17/2024 03/22/2024 Active Start: 05-27-2021 End: 06-01-2021 take 1 capsule by mouth twice daily nitrofurantoin, macrocrystal-monohydrate , 100 MG capsule Take 1 capsule by mouth 2 times daily for 5 days. Take w/ food/milk 10 capsule 0 05/27/2021 06/01/2021 Active nitroglycerin 0.4 mg sublingual tablet (17 sources) Nitrate Vasodilator Start: 06-30-2024 nitroGLYCERIN 0.4 MG tablet SL Indications: Anginal syndrome Place 1 tablet under tongue every 5 minutes as needed for Chest pain. max = 3 doses. If CP persists after 3rd dose, call 911 25 tablet 1 06/30/2024 Active norethindrone 0.35 mg oral tablet (20 sources) Start: 04-15-2023 take 1 tablet by mouth once daily Norethindrone 0.35 MG tablet TAKE 1 TABLET BY MOUTH ONCE DAILY AT THE SAME TIME 0 04/15/2023 Active Start: 08-25-2022 norethindrone (MICRONOR) 0.35 mg tablet 08/25/2022 Active Start: 08-25-2022 norethindrone (MICRONOR) 0.35 mg tablet Norethindrone (E RRIN PO) Take by mouth. 0 Active ofloxacin 3 mg/ml otic solution (1 source) Quinolone Antimicrobial Start: 09-21-2023 End: 10-01-2023 ofloxacin (Floxin Otic) 0.3 % solution Indications: Acute diffuse otitis externa of right ear 5 drops by Otic route 2 times daily for 10 days. 10 mL 0 09/21/2023 10/01/2023 Active pantoprazole 40 mg delayed release oral tablet (20 sources) Proton Pump Inhibitor Start: 07-08-2024 End: 07-08-2024 40 mg, Intravenous, ONCE, 1 dose, On Thu07/08/24 at 2000, Dilute each 40 mg vial with 10 mL of NS. All bolus doses, whether 40 mg or 80 mg, should be administered over at least two minutes., Indications: GERD Start: 01-21-2024 End: 05-19-2025 take 1 tablet by mouth once daily Pantoprazole 40 mg tablet,delayed release (DR/EC) Discontinued 40 mg PO DAILY March 10, 2024 12:00am May 19, 2025 2:27pm potassium citrate 10 meq extended release oral tablet (20 sources) Start: 08-08-2024 End: 11-02-2025 take 1 tablet by mouth twice daily potassium citrate 10 MEQ (1080 MG) Tab CR Take 1 tablet by mouth 2 times daily. 60 tablet 11 11/07/2024 11/02/2025 Active predniSONE (20 sources) Start: 12-07-2023 predniSONE 10 MG (21) Tab Therapy Pack Take 6 pills on day 1, then 5, 4, 3, 2 and 1 each day sequentially 21 Each 0 12/07/2023 Active Start: 10-18-2021 End: 10-23-2021 take 1 tablet by mouth twice daily predniSONE 20 MG tablet Indications: Acute upper respiratory infection Take 1 tablet by mouth 2 times daily for 5 days. 10 tablet 0 10/18/2021 10/23/2021 Active Start: 12-08-2019 predniSONE (DE LTASONE) 20 MG tablet Indications: Chronic right-sided thoracic back pain Take 3 tablets for 4 days, 2 tablets for 4 days, 1 tablet for 4 days and 1/2 tablet for 2 days with food. . 25 tablet 0 12/08/2019 Active QUEtiapine 25 mg oral tablet (2 sources) Atypical Antipsychotic Start: 06-05-2025 take 0.5 tablet by mouth at bedtime QUEtiapine 25 MG tablet Indications: Insomnia, unspecified type Take 0.5 tablets by mouth at bedtime. 30 tablet 1 06/05/2025 Active rosuvastatin calcium 10 mg oral tablet (20 sources) HMG-CoA Reductase Inhibitor Start: 01-12-2025 End: 06-14-2025 take 1 tablet by mouth once daily Rosuvastatin (Crestor) 10 mg tablet Active 10 mg PO daily March 24, 2025 12:00am Start: 02-26-2023 End: 03-10-2024 take 1 tablet by mouth once daily Rosuvastatin (Crestor) 5 mg tablet Discontinued 5 mg PO DAILY February 26, 2023 12:00am March 10, 2024 4:15pm Start: 12-03-2021 End: 09-02-2024 take 1 tablet by mouth once daily Rosuvastatin 10 MG tablet Indications: Abnormally low high density lipoprotein (HDL) cholesterol with hypertriglyceridemia Take 1 tablet by mouth daily. 90 tablet 1 01/12/2025 Active take 1 tablet by zenon th once daily Rosuvastatin 40 MG tablet Take 1 tablet by mouth daily. Active Semaglutide,0.25 or 0.5MG/DO S, (Ozempic, 0.25 or 0.5 MG/DOSE,) 2 MG/3ML Solution Pen-injector (8 sources) Start: 04-14-2024 Semaglutide,0. 25 or 0.5MG/DOS, (Ozempic, 0.25 or 0.5 MG/DOSE,) 2 MG/3ML Solution Pen-injector Indications: Type 2 diabetes mellitus with hyperglycemia, without long-term current use of insulin Start 0.25 mg subcutaneous once a week x 4 weeks, then increase up to 0.5 mg subcutaneous once a week. 3 mL 5 04/14/2024 Active Start: 04-14-2024 End: 04-14-2024 Semaglutide,0.25 or 0.5MG/DO S, (Ozempic, 0.25 or 0.5 MG/DOSE,) 2 MG/3ML Solution Pen-injector Indications: Type 2 diabetes mellitus with hyperglycemia, without long-term current use of insulin Start 0.25 mg subcutaneous once a week x 4 weeks, then increase up to 0.5 mg subcutaneous once a week. 3 mL 5 04/14/2024 04/14/2024 Discontinued SITagliptin 100 mg oral tablet (20 sources) Dipeptidyl Peptidase 4 Inhibitor Start: 03-04-2022 take 1 tablet by mouth once daily Januvia 100 mg tablet Take 1 (one) tablet (100 mg total) by mouth daily . 03/04/2022 Active sulfamethoxazole 800 mg / trimethoprim 160 mg oral tablet (20 sources) Dihydrofolate Reductase Inhibitor Antibacterial, Sulfonamide Antimicrobial Start: 09-29-2024 End: 10-04-2024 take 1 tablet by mouth twice daily Sulfamethoxazole -trimethoprim 800-160 MG per tablet Take 1 tablet by mouth 2 times daily for 5 days. 10 tablet 09/29/2024 10/04/2024 Active Start: 04-04-2023 End: 04-09-2023 take 1 tablet by mouth twice daily Sulfamethoxazole-trimethoprim (Bactrim D S) 800-160 MG per tablet Indications: Acute cystitis with hematuria Take 1 tablet by mouth 2 times daily for 5 days. 10 tablet 0 04/04/2023 04/09/2023 Active Start: 07-11-2020 End: 07-18-2020 take 1 tablet by mouth twice daily sulfamethoxazole-trimethoprim (Bactrim D S) 800-160 MG per tablet Take 1 tablet by mouth 2 times daily for 7 days. 14 tablet 0 07/11/2020 07/18/2020 Active Start: 12-13-2019 sulfamethoxazo le-trimethoprim (BACTRIM DS,SEPTRA DS) 800-160 mg per tablet Tirzepatide (Mounjaro) 2.5 MG/0.5ML Solution Pen-injector (1 source) Start: 02-03-2023 inject 2.5 mg by subcutaneous injection every week Tirzepatide (Mounjaro) 2.5 MG/0.5ML Solution Pen-injector INJECT 2.5MG SUBCUTANEOUS ROUTE EVERY WEEK FOR 4 WEEKS 0 02/03/2023 Active Tirzepatide (Mounjaro) 5 mg/0.5 mL pen injector (4 sources) Start: 03-24-2025 Tirzepatide (M ounjaro) 5 mg/0.5 mL pen injector Active 5 mg SC EVERY WEEK March 24, 2025 12:00am Tirzepatide (Mounjaro) 7.5 MG/0.5ML Solution Auto-injector (1 source) Start: 06-06-2025 inject 7.5 mg by subcutaneous injection every week Tirzepatide (Mounjaro) 7.5 MG/0.5ML Solution Auto-injector Indications: Type 2 diabetes mellitus with hyperglycemia, without long-term current use of insulin Inject 7.5 mg under the skin once a week. 2 mL 5 06/06/2025 Active vitamin b6 50 mg oral tablet (19 sources) Start: 12-20-2019 End: 12-30-2019 take 0.5 tablet by mouth once daily pyridoxine, vitamin B6, (vitamin B-6) 50 MG tablet Take 0.5 (one-half) tablet (25 mg total) by mouth daily for 10 days . 5 tablet 0 12/20/2019 Active vonoprazan (Voquezna) 20 mg Tab (2 sources) Start: 05-11-2025 take 1 tablet by mouth once daily vonoprazan (Voquezna) 20 mg Tab Take 20 mg by mouth daily . 05/11/2025 Active Vonoprazan (Voquezna) 20 mg tablet (3 sources) Start: 05-19-2025 take 1 tablet by mouth once daily Vonoprazan (Voquezna) 20 mg tablet Active 20 mg PO daily May 19, 2025 12:00am Vonoprazan Fumarate (Voquezna) 20 MG tablet (4 sources) Start: 06-05-2025 take 1 tablet by mouth once daily Vonoprazan Fumarate (Voquezna) 20 MG tablet Indications: Gastroesophageal reflux disease, unspecified whether esophagitis present Take 20 mg by mouth daily. 90 tablet 1 06/05/2025 Active Start: 05-11-2025 End: 06-05-2025 take 1 tablet by mouth once daily Vonoprazan Fumarate (Voquezna) 20 MG tablet Indications: Gastroesophageal reflux disease, unspecified whether esophagitis present Take 20 mg by mouth daily. 30 tablet 1 05/11/2025 06/05/2025 Discontinued (Reorder) Start: 05-10-2025 take 1 tablet by zenon once daily Vonoprazan Fumarate (Voquezna) 20 MG tablet Indications: Gastroesophageal reflux disease, unspecified whether esophagitis present Take 20 mg by mouth daily. 30 tablet 1 05/10/2025 Active Completed/Discontinued Medications Medication Drug Class(es) Dates Sig (Normalized) Sig (Original) acetaminophen 325 mg oral tablet (17 sources) Start: 03-17-2024 End: 03-17-2024 take 1 tablet by mouth every four hours as needed 650 mg, Oral, EVERY 4 HOURS NEEDED, 1 dose, Starting on Kiya 03/17/24 at 1218, Until Kiya 03/17/24 at 1334, Moderate Pain Start: 12-20-2019 End: 12-20-2019 acetaminophen (TYLENOL) tabl et 975 mg Start: 12-20-2019 End: 12-30-2019 take 2 tablets by mouth every six hours as needed acetaminophen (Tylenol) 325 MG tablet Take 2 (two) tablets (650 mg total) by mouth every 6 (six) hours as needed for pain . 20 tablet 0 12/20/2019 12/30/2019 Active take 1 tablet by zenon th every four hours acetaminophen 325 MG tablet Take 1 tablet by mouth every 4 hours. 0 Active acetaminophen 325 mg / HYDROcodone bitartrate 5 mg oral tablet (4 sources) Opioid Agonist Start: 06-13-2021 End: 10-18-2021 take 1 tablet by mouth every four hours as needed hydroCODone-acetaminophen 5-325 MG tablet Indications: S/P cystoscopy Take 1 tablet by mouth every 4 hours as needed for up to 2 days. 12 tablet 0 06/13/2021 10/18/2021 Discontinued acetaminophen 325 mg / oxyCODONE hydrochloride 5 mg oral tablet (4 sources) Opioid Agonist Start: 05-31-2021 End: 05-31-2021 oxyCODONE-acetaminophen (PERCOCET) 5-325 MG per tablet 1 Each Start: 05-31-2021 End: 06-13-2021 take 1 tablet by mouth every six hours as needed oxyCODONE-acetaminophen 5-325 MG per tablet Indications: Kidney stone Take 1 tablet by mouth every 6 hours as needed for up to 4 days. 12 tablet 0 05/31/2021 06/13/2021 Discontinued (Stop Taking at Discharge) 10 ml atropine sulfate 0.1 mg/ml prefilled syringe (1 source) Anticholinergic, Cholinergic Muscarinic Antagonist Start: 08-04-2024 End: 08-05-2024 0.25 mg, Intravenous, ADMINISTER DIRECTED, Starting on Kiya 08/04/24 at 0758, Until Thu08/05/24 at 0234, stress test, If at the start of 20 mcg/kg/min stage, the heart is less than 100 bpm, Atropine 0.25mg IVP is given every 1 minute up to maximum dose of 2 mg (8 doses) as directed by supervising physician. baclofen 10 mg oral tablet (20 sources) gamma-Aminobutyric Acid-ergic Agonist Start: 12-08-2019 End: 04-16-2022 baclofen (LIORESAL) 10 MG tablet Indications: Chronic right-sided thoracic back pain Take one tablet three times a day as needed for back pain and spasms. . 30 tablet 0 12/08/2019 04/16/2022 Discontinued (Error) onabotulinumtoxina 200 unt injection (20 sources) Acetylcholine Release Inhibitor Start: 05-30-2025 End: 05-30-2025 onabotulinumtoxinA (BOTOX) injection 0-200 Units Start: 05-30-2025 End: 05-30-2025 onabotulinumtoxinA (BOTOX) i njection 200 Units Start: 05-30-2025 End: 05-30-2025 inject 200 [IU] by intramuscular injection once 200 Units, Intramuscular, Once, On Thu05/30/25 at 1630, For 1 dose Start: 05-30-2025 End: 05-30-2025 0-200 Units, Intramuscular, Once, On Thu05/30/25 at 1630, For 1 dose Start: 04-12-2025 Botulinum Toxi n Type A 200 units Recon Soln Inject IM into divided doses every 84 days for cervical dystonia . 04/12/2025 Active Start: 03-24-2025 inject 200 [IU] by intramuscular injection every three months Onabotulinumtoxina (Botox) 200 unit recon soln Active 10 U IM .every 3months March 24, 2025 12:00am as a single dose Start: 02-14-2025 End: 04-11-2025 abobotulinumtoxinA 500 unit SolR Indications: Cervical dystonia Inject 1,140 (one thousand one hundred forty) Units into the shoulder, thigh, or buttocks every 3 (three) months . 3 each 3 02/14/2025 04/11/2025 Discontinued (Alternate therapy) Start: 12-06-2024 End: 12-06-2024 abobotulinumtoxinA (Dysport) 500 unit SolR Indications: Cervical dystonia 500 units intramuscular every 12 weeks in divided doses. . 500 each 12/06/2024 12/06/2024 Discontinued (Error) Start: 11-29-2024 End: 06-14-2025 AbobotulinumtoxinA (Dysport) 300 units Recon Soln 300 Units. 11/29/2024 06/14/2025 Discontinued (Patient Preference) Start: 09-01-2024 End: 12-06-2024 abobotulinumtoxinA (Dysport) 500 unit SolR Indications: Cervical dystonia Inject 1140 units IM into divided doses every 12 weeks . 3 each 3 09/01/2024 12/06/2024 Discontinued Start: 05-18-2024 End: 05-18-2024 onabotulinumtoxinA (BOTOX) i njection 0-200 Units Start: 05-18-2024 End: 05-18-2024 onabotulinumtoxinA (BOTOX) i njection 0-200 Units Start: 05-18-2024 End: 05-18-2024 onabotulinumtoxinA (BOTOX) i njection 200 Units Start: 05-18-2024 End: 05-18-2024 onabotulinumtoxinA (BOTOX) i njection 200 Units Start: 02-09-2023 End: 02-09-2023 onabotulinumtoxinA (BOTOX) i njection 0-200 Units Start: 02-09-2023 End: 02-09-2023 onabotulinumtoxinA (BOTOX) i njection 200 Units Start: 01-26-2023 Botox 200 unit s Recon Soln Start: 10-27-2022 End: 10-27-2022 onabotulinumtoxinA (BOTOX) i njection 0-200 Units Start: 10-27-2022 End: 10-27-2022 onabotulinumtoxinA (BOTOX) i njection 0-200 Units Start: 10-27-2022 End: 10-27-2022 onabotulinumtoxinA (BOTOX) i njection 200 Units Start: 10-27-2022 End: 10-27-2022 onabotulinumtoxinA (BOTOX) i njection 200 Units Start: 09-17-2022 End: 12-06-2024 onabotulinumtoxinA (Botox) 2 00 unit SolR INJECT 380 UNITS INTRAMUSCULARLY EVERY 84 DAYS 2 each 10/13/2023 12/06/2024 Discontinued (Formulary change) Start: 07-23-2022 End: 07-23-2022 onabotulinumtoxinA (BOTOX) i njection 0-200 Units Start: 07-23-2022 End: 07-23-2022 onabotulinumtoxinA (BOTOX) i njection 0-200 Units Start: 07-23-2022 End: 07-23-2022 onabotulinumtoxinA (BOTOX) i njection 200 Units Start: 07-23-2022 End: 07-23-2022 onabotulinumtoxinA (BOTOX) i njection 200 Units Start: 06-12-2022 End: 12-06-2024 Botox 200 unit SolR INJECT 3 80 UNITS INTRAMUSCULARLY EVERY 12 WEEKS (DISCARD UNUSED AFTER FIRST USE) 2 each 06/12/2022 12/06/2024 Discontinued (Formulary change) Start: 04-10-2022 End: 06-12-2022 Botox 200 unit SolR 380 Unit s . 0 04/10/2022 06/12/2022 Discontinued Start: 01-20-2022 End: 01-20-2022 onabotulinumtoxinA (BOTOX) i njection 0-200 Units Start: 01-20-2022 End: 01-20-2022 onabotulinumtoxinA (BOTOX) i njection 0-200 Units Start: 01-20-2022 End: 01-20-2022 onabotulinumtoxinA (BOTOX) i njection 200 Units Start: 01-20-2022 End: 01-20-2022 onabotulinumtoxinA (BOTOX) i njection 200 Units Start: 10-16-2021 End: 10-16-2021 onabotulinumtoxinA (BOTOX) i njection 0-200 Units Start: 10-16-2021 End: 10-16-2021 onabotulinumtoxinA (BOTOX) i njection 0-200 Units Start: 10-16-2021 End: 10-16-2021 onabotulinumtoxinA (BOTOX) i njection 200 Units Start: 10-16-2021 End: 10-16-2021 onabotulinumtoxinA (BOTOX) i njection 200 Units Start: 12-05-2020 End: 12-05-2020 onabotulinumtoxinA (BOTOX) i njection 200 Units Start: 12-05-2020 End: 12-05-2020 onabotulinumtoxinA (BOTOX) i njection 200 Units Start: 12-05-2020 End: 12-05-2020 onabotulinumtoxinA (BOTOX) i njection 200 Units Start: 12-05-2020 End: 12-05-2020 onabotulinumtoxinA (BOTOX) i njection 200 Units Start: 09-12-2020 End: 09-12-2020 onabotulinumtoxinA (BOTOX) i njection 0-200 Units Start: 09-12-2020 End: 09-12-2020 onabotulinumtoxinA (BOTOX) i njection 0-200 Units Start: 09-12-2020 End: 09-12-2020 onabotulinumtoxinA (BOTOX) i njection 200 Units Start: 09-12-2020 End: 09-12-2020 onabotulinumtoxinA (BOTOX) i njection 200 Units Start: 05-09-2020 End: 05-09-2020 onabotulinumtoxinA (BOTOX) i njection 0-200 Units Start: 05-09-2020 End: 05-09-2020 onabotulinumtoxinA (BOTOX) i njection 0-200 Units Start: 05-09-2020 End: 05-09-2020 onabotulinumtoxinA (BOTOX) i njection 200 Units Start: 05-09-2020 End: 05-09-2020 onabotulinumtoxinA (BOTOX) i njection 200 Units Start: 12-27-2019 End: 12-27-2019 onabotulinumtoxinA (BOTOX) i njection 0-200 Units Start: 12-27-2019 End: 12-27-2019 onabotulinumtoxinA (BOTOX) i njection 0-200 Units Start: 12-27-2019 End: 12-27-2019 onabotulinumtoxinA (BOTOX) i njection 200 Units Start: 12-27-2019 End: 12-27-2019 onabotulinumtoxinA (BOTOX) i njection 200 Units capsaicin 0.25 mg/ml topical cream (4 sources) Start: 12-20-2019 End: 12-20-2019 capsaicin (ZOSTRIX) 0.025 % cream Start: 12-20-2019 End: 01-19-2020 capsaicin 0.1 % Crea Apply 1 application topically 4 (four) times a day as needed (PAIN) . 42.5 g 0 12/20/2019 01/19/2020 Active Continuous Glucose Automatic Machines Supervisor (Dexcom G7 Automatic Machines Supervisor) Device (1 source) Start: 08-18-2024 End: 09-02-2024 Continuous Glucose Automatic Machines Supervisor (Dexcom G7 Automatic Machines Supervisor) Device Use to test blood sugar 4 times daily 1 Each 08/18/2024 09/02/2024 Discontinued Continuous Glucose Automatic Machines Supervisor (FreeStyle Sue 3 Jenkinjones) Device (10 sources) Start: 04-29-2024 End: 09-02-2024 Start: 04-29-2024 Continuous Glucose Sensor (D excom G7 Sensor) Misc (14 sources) Start: 12-06-2024 End: 06-06-2025 Start: 12-06-2024 Start: 08-18-2024 End: 12-06-2024 Start: 08-18-2024 Continuous Glucose Sensor (F reeStyle Sue 3 Sensor) Misc (12 sources) Start: 04-14-2024 End: 09-02-2024 Start: 04-14-2024 dexamethasone (DECADRON) 1 m L, triamcinolone acetonide (KENALOG-40) 40 mg/mL 1 mL (4 sources) Start: 01-26-2023 End: 01-26-2023 dexamethasone (DECADRON) 1 m L, triamcinolone acetonide (KENALOG-40) 40 mg/mL 1 mL Start: 10-27-2022 End: 10-27-2022 dexamethasone (DECADRON) 1 m L, triamcinolone acetonide (KENALOG-40) 40 mg/mL 1 mL Start: 04-16-2022 End: 04-18-2022 dexamethasone (DECADRON) 1 m L, triamcinolone acetonide (KENALOG-40) 40 mg/mL 1 mL Start: 09-12-2020 End: 09-12-2020 dexamethasone (DECADRON) 1 m L, triamcinolone acetonide (KENALOG-40) 40 mg/mL 1 mL dexAMETHasone (DECADRON) 1 m L, triamcinolone acetonide (KENALOG-40) 40 mg/mL 1 mL (10 sources) Start: 06-12-2025 End: 06-12-2025 2 mL, Injection, Once as needed Procedure, Starting on Thu06/12/25 at 1415, For 1 dose Start: 03-06-2025 End: 03-06-2025 2 mL, Injection, Once as nee ded Procedure, Starting on Thu03/06/25 at 1415, For 1 dose Start: 11-28-2024 End: 11-28-2024 2 mL, Injection, Once as nee ded Procedure, Starting on Thu11/28/24 at 1400, For 1 dose Start: 08-22-2024 End: 08-22-2024 2 mL, Injection, Once as nee ded Procedure, Starting on Thu08/22/24 at 1515, For 1 dose Start: 05-10-2024 End: 05-10-2024 dexAMETHasone (DECADRON) 1 m L, triamcinolone acetonide (KENALOG-40) 40 mg/mL 1 mL Start: 05-10-2024 End: 05-10-2024 dexAMETHasone (DECADRON) 1 m L, triamcinolone acetonide (KENALOG-40) 40 mg/mL 1 mL Start: 02-03-2024 End: 02-03-2024 dexAMETHasone (DECADRON) 1 m L, triamcinolone acetonide (KENALOG-40) 40 mg/mL 1 mL Start: 05-25-2023 End: 05-25-2023 dexAMETHasone (DECADRON) 1 m L, triamcinolone acetonide (KENALOG-40) 40 mg/mL 1 mL Start: 05-25-2023 End: 05-25-2023 dexAMETHasone (DECADRON) 1 m L, triamcinolone acetonide (KENALOG-40) 40 mg/mL 1 mL 250 ml DOBUTamine 2 mg/ml injection (1 source) beta-Adrenergic Agonist Start: 08-04-2024 End: 08-05-2024 5 mcg/kg/min 120.2 kg Order-specific weight (18.03 mL/hr, rounded to 18 mL/hr), Intravenous, CONTINUOUS, Starting on Thu08/04/24 at 0800, Until Thu08/05/24 at 0234, Initiated at a rate of 5 mcg/kg/min and increase to 20 mcg/kg/min after 3 minutes and further increased to 40 mcg/kg/min after 3 minutes until the patient has achieved 85% age predicted maximum heart rate. Extravasation Risk icosapent ethyl 1000 mg oral capsule (20 sources) Start: 01-12-2025 End: 06-14-2025 Icosapent Ethyl (Vascepa) 1 g capsule Indications: Abnormally low high density lipoprotein (HDL) cholesterol with hypertriglyceridemia Take 2 capsules by mouth 2 times daily. 360 capsule 1 01/12/2025 06/14/2025 Discontinued (Reorder) Start: 06-30-2024 Icosapent Ethy l (Vascepa) 1 g capsule Indications: Abnormally low high density lipoprotein (HDL) cholesterol with hypertriglyceridemia Take 2 capsules by mouth 2 times daily. 360 capsule 1 06/30/2024 Active Start: 12-17-2023 Icosapent Ethy l (Vascepa) 1 g capsule Indications: Abnormally low high density lipoprotein (HDL) cholesterol with hypertriglyceridemia Take 2 capsules by mouth 2 times daily. 360 capsule 1 12/17/2023 Active Start: 07-15-2023 Icosapent Ethy l (Vascepa) 1 g capsule Indications: Abnormally low high density lipoprotein (HDL) cholesterol with hypertriglyceridemia Take 2 capsules by mouth 2 times daily. 360 Each 1 07/15/2023 Active Start: 10-08-2022 icosapent ethy L 1 gram cap 10/08/2022 Active 3 ml insulin lispro 100 unt/ml pen injector (20 sources) Insulin Analog Start: 03-24-2025 End: 08-01-2025 Insulin Lispro (Humalog Kwikpen Insulin) 100 unit/mL insulin pen Discontinued 1 sliding scale dose SC Use as Directed March 24, 2025 12:00am August 01, 2025 9:28am Start: 05-16-2024 End: 12-06-2024 Insulin lispro, 1 Unit Dial, (HumaLOG KwikPen) 100 UNIT/ML Solution Pen-injector Indications: Type 2 diabetes mellitus with hyperglycemia, without long-term current use of insulin To use via sliding scale 3 times a day before meals as directed. 45 mL 3 12/06/2024 Active iohexol (OMNIPAQUE) 300 MG/ML vial (1 source) Start: 06-13-2021 End: 06-13-2021 iohexol (OMNIPAQUE) 300 MG/ML vial 2 ml ketorolac tromethamine 30 mg/ml cartridge (6 sources) Nonsteroidal Anti-inflammatory Drug, Cyclooxygenase Inhibitor Start: 01-17-2024 End: 01-17-2024 15 mg, Intravenous, ONCE, 1 dose, On 01/17/24 at 1400 Start: 12-02-2020 End: 12-02-2020 ketorolac (TORADOL) injectio n 60 mg Start: 12-02-2020 End: 12-02-2020 ketorolac (TORADOL) injectio n 60 mg Start: 12-08-2019 End: 12-08-2019 ketorolac (TORADOL) injectio n 60 mg Start: 12-08-2019 End: 12-08-2019 ketorolac (TORADOL) injectio n 60 mg liothyronine sodium 0.005 mg oral tablet (7 sources) l-Triiodothyronine Start: 03-07-2025 End: 06-06-2025 take 1 tablet by mouth once daily Liothyronine 5 MCG tablet Indications: 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 30 tablet 3 03/07/2025 06/06/2025 Discontinued (Reorder) meloxicam 15 mg oral tablet (20 sources) Nonsteroidal Anti-inflammatory Drug Start: 06-23-2017 End: 03-10-2024 take 1 tablet by mouth once daily Meloxicam 15 MG tablet Discontinued 15 mg PO DAILY May 31, 2018 12:00am March 10, 2024 4:14pm Start: 06-23-2017 meloxicam 15 M G tablet 15 mg. 2 tablets bid 0 06/23/2017 Active 5 ml metoprolol tartrate 1 mg/ml injection (1 source) beta-Adrenergic Archana Start: 08-04-2024 End: 08-05-2024 0-15 mg, Intravenous, ADMINISTER DIRECTED, Starting on Thu08/04/24 at 0758, Until Thu08/05/24 at 0234, stress test, 5mg/5ml x 3 injections to be available if needed as determined by supervising physicians. Milk thistle extract (14 sources) End: 09-02-2024 MILK THISTLE PO Take by mouth daily. 09/02/2024 Discontinued (Medication Reconciliation (suppress cancel msg)) MILK THISTLE PO Take by mouth daily. Active 1 ml morphine sulfate 4 mg/ml cartridge (1 source) Opioid Agonist Start: 07-08-2024 End: 07-08-2024 4 mg, Intravenous, ONCE, 1 dose, On Thu07/08/24 at 2000 multivitamin tablet (20 sources) End: 12-01-2024 take 1 tablet by mouth once daily multivitamin tablet Take 1 tablet by mouth daily. 12/01/2024 Discontinued (Therapy completed) take 1 tablet by mouth once urban y multivitamin tablet Take 1 tablet by mouth daily. Active take 1 tablet by mouth once urban y multivitamin tablet Take 1 tablet by mouth daily. 0 Active mupirocin 0.02 mg/mg topical ointment (20 sources) RNA Synthetase Inhibitor Antibacterial Start: 09-02-2024 End: 06-14-2025 Mupirocin 2 % ointment Indications: Paronychia of finger, unspecified laterality Apply to affected area TID for 5 days 22 g 09/02/2024 06/14/2025 Discontinued (Patient Preference) Start: 10-12-2020 apply 30 g topically three times daily mupirocin 2 % ointment Indications: Pierced ear infection, left, initial encounter Apply topical TID for 7 days 30 g 0 10/12/2020 Active Start: 12-20-2019 mupirocin (RHIANNA TROBAN) 2 % ointment Apply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 QDAY 03/24/25 06/30/25 History tirzepatide 5 mg/0.5 mL 5 mg subcut QWEEK 03/24/25 5 History subcutaneous pen injector (Mounjaro) vonoprazan 20 mg tablet (Voquezna) 20 mg PO QDAY 05/19/25 06/30/25 History Post menopausal: No Patient : No : No PFSH PFSH Medical History High cholesterol Hypertension Depression Type 2 diabetes mellitus Hypothyroidism Surgical History S/P tonsillectomy and adenoidectomy Family History Grandfather Colon cancer Cancer Lung cancer Father Hypertension Heart disease Diabetes Mother Myocardial infarction Diabetes Hypertension Brother Myocardial infarction Social History adopted: No housing: house number of children: 0 current occupational status: employed 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 Smoking Status: Never smoker alcohol intake: current alcohol intake frequency: holidays/special occasions only substance use type: does not use what type of physical activity do you participate in: none seatbelt use: always do you feel safe at home: Yes 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 She reports that her menstrual period arrived earlier than expected, but it is not a concern for the procedure. The patient has been managing her diabetes with a new dietary approach called Virta, which is a moderate protein keto diet. She has successfully discontinued both her long-term and short-term insulin within two weeks of starting the diet, attributing this to the reduction in carbohydrate intake and the addition of healthy fats. Her blood sugar levels have stabilized, and she has experienced a weight loss of approximately 12 pounds. The patient has been using herbal medications, specifically Betelic, which she reports have helped with menstrual flow and resolved a previous cyst. She mentions that the herbal treatment has improved the color and consistency of her menstrual blood, reducing clotting and stagnation. Additionally, the patient is utilizing traditional Danish medicine, which involves symptom checking and dietary adjustments. She monitors her blood pressure at home and follows a diet plan provided by her insurance, which supports her diab (more content not included)... [facility] LG Jt Injection/Arthrocentes is: R subacromial bursaon 06-12-2025 Antwon Martin, VICE PRESIDENT [employer] 06/12/2025 2:37 PM LG Jt Injection/Arthrocentes is: R subacromial bursa Performed by: Antwon Martin CNP Authorized by: Antwon Martin CNP Consent given by: Patient Time out: Immediately prior to the procedure a time out was called Physician or proceduralist has discussed critical or nonroutine steps, procedure duration and anticipated blood loss: Yes Supporting Documentation: Indications: Pain Procedure Details: Location: Shoulder Site: R subacromial bursa Prep: patient was prepped and draped in usual sterile fashion Needle size: 22 G Approach: Posterior Medications: 1 mL dexAMETHasone 4 mg/mL, 1 mL triamcinolone acetonide 40 mg/mL Anesthetic used: Bupivacaine 0.25% Anesthetic amount (mL): 3 Patient tolerance: Patient tolerated the procedure well with no immediate complications [facility] [place] CONTINUOUS GLUCOSE MONITO RING ANALYSIS I&Zander 06-06-2025 Jseus Alvarez CNP 06/06/2025 4:07 PM CGM download demonstrates time in target range 52%, high 39%, very high 9%, low/very low 0%. GMI = 7.8%. CGM data is demonstrating postprandial hyperglycemia after some meals. Overnight blood sugars look good. Based on CGM download discussion with patient we are going to continue Lantus, Humalog, Jardiance, metformin, and increase Mounjaro. We will re-evaluate in 3 months. [facility] BILIRUBIN DIRECTon Bilirubin.indirect [Mass/Vol] 0.0 mg/dL Normal 0.0-0.4 [facility] Comment on above: Performed By: #### D SILVIO #### [place] [address] CBC(NO DIFF)on 05-30-2025 Erythrocyte distribution width (RBC) [Ratio] 14.9 % High 11.5-14.5 [facility] Comment on above: Performed By: #### T 42, TSH2 #### Testing performed at [address] [address] Hematocrit (Bld) [Volume fraction] 41.6 % Normal 36.0-48.0 [facility] Comment on above: Performed By: #### T 42, TSH2 #### Testing performed at [facility] [place] [facility] [address] [place] [address] Hemoglobin (Bld) [Mass/Vol] 14.1 g/dL Normal 12.0-16.0 [facility] Comment on above: Performed By: #### T 42, TSH2 #### Testing performed at [address] [address] MCH (RBC) [Entitic mass] 29.1 pg Normal 26.0-35.0 [facility] Comment on above: Performed By: #### T 42, TSH2 #### Testing performed at [address] [address] MCHC (RBC) [Mass/Vol] 33.8 g/dL Normal 27.0-37.0 [facility] Comment on above: Performed By: #### T 42, TSH2 #### Testing performed at [address] [address] MCV (RBC) [Entitic vol] 86.2 fL Normal 80.0-100.0 [facility] Comment on above: Performed By: #### T 42, TSH2 #### Testing performed at [address] [address] Platelet mean volume (Bld) [Entitic vol] 8.6 fL Normal 7.4-11.0 [facility] Comment on above: Performed By: #### T 42, TSH2 #### Testing performed at [address] [address] Platelets (Bld) [#/Vol] 371 10*3/uL Normal 130-400 [facility] Comment on above: Performed By: #### T 42, TSH2 #### Testing performed at [address] [address] RBC (Bld) [#/Vol] 4.83 10*6/uL Normal 4.0-5.4 [facility] Comment on above: Performed By: #### T 42, TSH2 #### Testing performed at [address] [address] WBC (Bld) [#/Vol] 8.2 10*3/uL Normal 3.6-11.0 [facility] Comment on above: Performed By: #### T 42, TSH2 #### Testing performed at [address] [address] CMP FASTINGon 05-30-2025 A:G RATIO 1.[address] [facility] Comment on above: Performed By: #### T 42, TSH2 #### Testing performed at [address] [address] Albumin [Mass/Vol] 4.2 g/dL Normal 3.5-5.0 [facility] Comment on above: Performed By: #### T 42, TSH2 #### Testing performed at [address] [address] ALP [Catalytic activity/Vol] 100 U/L Normal 38-126 [facility] Comment on above: Performed By: #### T 42, TSH2 #### Testing performed at [address] [address] ALT [Catalytic activity/Vol] 27 U/L Normal <35 [facility] Comment on above: Performed By: #### T 42, TSH2 #### Testing performed at [address] [address] AST [Catalytic activity/Vol] 29 U/L Normal 14-36 [facility] Comment on above: Performed By: #### T 42, TSH2 #### Testing performed at [address] [address] Bilirubin [Mass/Vol] 0.2 mg/dL Normal 0.2-1.3 [facility] Comment on above: Performed By: #### T 42, TSH2 #### Testing performed at [address] [address] Calcium [Mass/Vol] 8.9 mg/dL Normal 8.4-10.2 [facility] Comment on above: Performed By: #### T 42, TSH2 #### Testing performed at [address] [address] Chloride [Moles/Vol] 101 mmol/L Normal 98-107 [facility] Comment on above: Result Comment: [employer]bi parks note: Triglyceride levels of 600mg/dL or higher may positively bias chloride results by approximately 2.1 mmol Performed By: #### T 42, TSH2 #### Testing performed at [address] [place] [address] CO2 [Moles/Vol] 27 mmol/L Normal 22-30 [facility] Comment on above: Performed By: #### T 42, TSH2 #### Testing performed at [address] [address] Creatinine [Mass/Vol] 0.80 mg/dL Normal 0.70-1.20 [facility] Comment on above: Performed By: #### T 42, TSH2 #### Testing performed at [address] [address] GFR Information Average GFR for 40-4 9 years old = 99. Normal [facility] Comment on above: Result Comment: Rn Bone Marrow Transplant ced Kidney disease, GFR = <60. Kidney failure, GFR = <15. The GFR estimate is not adjusted for extreme body surface area or acute process, nor has it been validated for women or ethnic groups other than and . Performed By: #### T 42, TSH2 #### Testing performed at [address] [address] GFR/1.73 sq M.predicted MDRD (S/P/Bld) [Vol rate/Area] 84 mL/min/{1.73_m2} Normal [facility] Comment on above: Performed By: #### T 42, TSH2 #### Testing performed at [address] [address] Glucose [Mass/Vol] 154 mg/dL High 70-100 [facility] Comment on above: Result Comment: NORMAL <100 mg/dL PREDIABETES 101-126 mg/dL DIABETES 126 mg/dL or higher Performed By: #### T 42, TSH2 #### Testing performed at [address] [address] Potassium [Moles/Vol] 4.5 mmol/L Normal 3.5-5.1 [facility] Comment on above: Performed By: #### T 42, TSH2 #### Testing performed at [address] [address] Protein [Mass/Vol] 6.9 g/dL Normal 6.3-8.2 [facility] Comment on above: Performed By: #### T 42, TSH2 #### Testing performed at [address] [address] Sodium [Moles/Vol] 138 mmol/L Normal 137-145 [facility] Comment on above: Performed By: #### T 42, TSH2 #### Testing performed at [address] [address] Urea nitrogen [Mass/Vol] 16 mg/dL Normal 7-20 [facility] Comment on above: Performed By: #### T 42, TSH2 #### Testing performed at [address] [place] [address] HEMOGLOBIN A1Con 05-30-2025 Glucose [Mass/Vol] 148 mg/dL Normal [facility] Comment on above: Performed By: #### A CBC, CMPF, LIPA2 #### Testing performed at [address] [address] HbA1c (Bld) [Mass fraction] 6.8 % High 0-6 [facility] Comment on above: Result Comment: NORMAL <5.7% PREDIABETES 5.7-6.4% DIABETES 6.5% OR HIGHER Performed By: #### A CBC, CMPF, LIPA2 #### Testing performed at [address] [place] [address] LIPID PROFILEon 05-30-2025 Cholesterol [Mass/Vol] 141 mg/dL Normal 107-217 [facility] Comment on above: Performed By: #### T 42, TSH2 #### Testing performed at [address] [address] Cholesterol in HDL [Mass/Vol] 36 mg/dL Normal 33-75 [facility] Comment on above: Performed By: #### T 42, TSH2 #### Testing performed at [address] [address] Cholesterol in LDL [Mass/Vol] 51 mg/dL Normal <100 [facility] Comment on above: Performed By: #### T 42, TSH2 #### Testing performed at [address] [address] Cholesterol in VLDL [Mass/Vol] 54 mg/dL High 5-25 [facility] Comment on above: Performed By: #### T 42, TSH2 #### Testing performed at [address] [address] Cholesterol.total/Cho lesterol in HDL [Mass ratio] 3.92 {ratio} Normal [facility] Comment on above: Result Comment: RISK TOTAL/HDL RATIO MEN WOMEN 1/2 AVERAGE 3.43 3.27 AVERAGE 4.97 4.44 2X AVERAGE 9.55 7.05 3X AVERAGE 23.99 11.04 Performed By: #### T 42, TSH2 #### Testing performed at [address] [address] Triglyceride [Mass/Vol] 272 mg/dL High 0-150 [facility] Comment on above: Performed By: #### T 42, TSH2 #### Testing performed at [address] [address] MALB/CREAT RATIO,URINEon MALB/CREAT RATIO,URINE 13.7 mg MALB/g CREAT Normal 1.3-30.0 [facility] Comment on above: Performed By: #### A CBC, CMPF, LIPA2 #### Testing performed at [address] [address] URINE CREATININE RANDOM 52.4 MG/DL Normal [facility] Comment on above: Result Comment: NO N ORMAL VALUES ESTABLISHED FOR RANDOM SPECIMENS Performed By: #### A CBC, CMPF, LIPA2 #### Testing performed at [address] [address] MICROALBUMIN,RANDOM URINE 7.2 mg/L Normal 0.0-16.7 [facility] Comment on above: Performed By: #### A CBC, CMPF, LIPA2 #### Testing performed at [address] [address] TSH,REFLEX FREE T4on 025 TSH,REFLEX FREE T4 1.800 uIU/ML Normal 0.465-4.680 [facility] Comment on above: Performed By: #### A CBC, CMPF, LIPA2 #### Testing performed at [address] [address] Soccer Player Office Visit Reporton 05-19-2025 Soccer Player Office Visit Report [facility] [address], [address] [place] [address] OFFICE VISIT Date of Service: 05/19/25 MR#: [id number] Acct: [id number] Name: OSWALDO MOREL Rep #: [id number] : 1985 Provider: Dr. Millicent Coffey DO Age/Sex: 39/F [place] [facility] [place]: Signed Intake Vital Signs 03/24/25 12:11 05/19/25 14:19 Height 5 ft 4 in 5 ft 4 in Weight: 265 lb 2 oz BMI 45.5 BP 138/81 H Intake Visit Reasons: fu on US results *copay $30 Principal Bioinformatics Specialist Required: No Is patient in pain?: No Allergies No Known Allergies Allergy (Verified 05/19/25 14:20) Medications ???Medication ???Instructions ???Recorded ???Confirmed ???Type lisinopril 5 mg tablet (Zestril) 5 mg PO DAILY 05/31/18 05/19/25 Hi story atenolol 25 mg tablet (Tenormin) 50 mg PO DAILY 03/10/24 05/19/25 H istory insulin glargine 100 unit/mL (3 20 unit subcut QPM 03/10/24 History mL) subcutaneous pen (Lantus Solostar U-100 Insulin) levothyroxine 112 mcg capsule 112 mcg PO DAILY 03/10/24 05/19/25 History metformin 500 mg tablet 1,000 mg PO BID 03/10/24 05/19/25 History apple cider vinegar 500 mg tablet mg PO 03/24/25 05/19/25 History aspirin 81 mg tablet,delayed 81 mg PO QDAY 03/24/25 05/19/25 Hi story release empagliflozin 25 mg tablet 25 mg PO QDAY 03/24/25 05/19/25 Hi story (Jardiance) escitalopram oxalate 10 mg tablet 10 mg PO QDAY 03/24/25 05/19/25 H istory (Lexapro) fluticasone propionate 50 1 spray intranasal QDAY 03/24/25 0 05/19/25 History mcg/actuation nasal spray,suspension (Flonase Allergy Relief) insulin lispro 100 unit/mL 1 sliding scale dose subcut 05/19/25 History subcutaneous pen (Humalog KwikPen USEASDIRECTD (U-100) Insulin) onabotulinumtoxinA 200 unit 10 unit IM .every 3months 03/24/25 05/19/25 History solution for injection (Botox) rosuvastatin 10 mg tablet (Crestor) 10 mg PO QDAY 03/24/25 05/19/25 History tirzepatide 5 mg/0.5 mL 5 mg subcut QWEEK 03/24/25 5 History subcutaneous pen injector (Mounjaro) vonoprazan 20 mg tablet (Voquezna) 20 mg PO QDAY 05/19/25 05/19/25 History Post menopausal: No Patient : No : No PFSH Medical History High cholesterol Hypertension Depression Type 2 diabetes mellitus Hypothyroidism Surgical History S/P tonsillectomy and adenoidectomy Family History Grandfather Colon cancer Cancer Lung cancer Father Hypertension Heart disease Diabetes Mother Myocardial infarction Diabetes Hypertension Brother Myocardial infarction Social History adopted: No housing: house number of children: 0 current occupational status: employed 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 it is no longer present on current ultrasound and she wants to discuss contraception. She is not a candidate for ocps and want to try an IUD. History 0 Elective abortions Hx Para Spontaneous abortions Hx # Term Pregnancies Ectopic pregnancies Hx # Pregnancies Multiple births # of living children ROS Const ROS Unobtainable: All systems reviewed are unremarkable except as noted in H Resp Resp: Reports system reviewed and no additional complaints, except as documented; Denies cough GI GI: Reports as per HPI Psych Psych: Reports system reviewed and no additional complaints, except as documented Exam Const General: cooperative, healthy appearing, comfortable and no acute distress Resp Effort Inspection: normal respiratory effort Skin General: no rashes or lesions noted Psych Appearance: grossly normal Speech and Movement: speech and movement normal Coding Level of Care Code Off vis,est,level 3 Diagnoses Ovarian cyst, complex N83.299 Assessment and Plan Assessment and Plan (1) Ovarian cyst, complex: Status: Acute Plan: after a long discussion on risks, benefits, alterative options for prevention of ovarian cysts, she wants to try a mirena IUD. Although this will not help with prevention of cysts, she has decided that contraception is more important. (more content not included)... Normal [facility] Pelvic (Non )on 04-30 Pelvic (Non ) [facility] Imaging Services [address] [place] [id number] Pelvic (Non ) MR#: [id number] Acct: [id number] Name: OSWALDO MOREL Rep #: [id number] : 1985 F 39 From: Xochitl arias MD PCP: CARMEN MCKEON Status: REG CLI Study: Pelvic (Non ) Date of Exam: 05/12/25 Exam# [id number] Ordering Dr: Millicent Cervantes DO PROCEDURE: PELVIC (NON ) 05/12/2025 REASON FOR EXAM: FU US FROM OVARIAN CYST TECHNIQUE: Transabdominal pelvic ultrasound COMPARISON: 03/30/2025. FINDINGS: Normal uterus measuring 7.1 x 4.3 x 2.7 cm. Normal right ovary measuring 3.6 x 3.1 x 2.4 cm. Normal left ovary measuring 2.5 x 1.9 x 1.6 cm. Normal bilateral ovarian flow without evidence of ovarian torsion. The endometrium is normal in thickness measuring 3.1 mm. Normal cervix. No free fluid in the pelvic cul-de-sac. Underdistended bladder measuring 99 cc in volume. US/Pelvic (Non ) IMPRESSION: Unremarkable exam. No residual left ovarian cyst. [facility] CC: Dr. Millicent Cervantes DO; CARMEN MCKEON Assistant Professor Of Spanish: Signed Normal [facility] Pelvic w/ Transvaginalon Pelvic w/ Transvaginal [facility] Imaging Services [address] [place], [place] [address] Pelvic w/ Transvaginal MR#: [id number] Acct: [id number] Name: OSWALDO MOREL Rep #: [id number] : 1985 F 39 From: Rohit Suarez MD PCP: Status: REG CLI Study: Pelvic w/ Transvaginal Date of Exam: 03/30/25 Exam# [id number] Ordering Dr: Millicent Cervantes DO PROCEDURE: PELVIC W/ TRANSVAGINAL (USPELTVAG), 03/30/2025 REASON FOR EXAM: OVARIAN CYST FOLLOW-UP TECHNIQUE: Grayscale, color Doppler, and spectral Doppler transabdominal and transvaginal pelvic ultrasound was performed. COMPARISON: None FINDINGS: Uterus: 6.8 x 4.0 x 4.0 cm, Anteflexed. Unremarkable echotexture. Endometrium: 6 mm, unremarkable. Cervix: Unremarkable. Right ovary: 3.4 x 1.9 x 1.7 cm. Unremarkable. Normal low resistance arterial waveforms. Left ovary: 4.9 x 4.4 x 4.0 cm. 3.9 x 3.6 x 2.9 cm simple appearing unilocular cyst. Normal low resistance arterial waveforms. Free fluid: None visualized. Other: Estimated bladder volume 178 mL. US/Pelvic w/ Transvaginal IMPRESSION: 1. 3.9 cm simple appearing LEFT ovarian cyst. Comparison with reported outside imaging would be helpful. If this has persisted for an extended period of time or has enlarged, this may reflect a benign neoplasm such as a cystadenoma. If follow-up interval is shorter, this may reflect a functional cyst. Per O-RADS this is O-RADS 2, no specific follow-up required in a premenopausal patient, however if this has enlarged, follow-up may be prudent. 2. Additional description as above. Reading Location: [id number] CC: Dr. Millicent Cervantes DO Assistant Professor Of Spanish: Signed Normal [facility] PAP IG HPV APTIMA 16/18,45on 03-29-2025 ADEQ Comment Normal . [facility] Comment on above: Order Comment: Speci men Comment: [id number] Specimen Comment: Source.............Cervix Specimen Comment: No. of containers..01 ThinPrep Vial Result Comment: Sati sfactory for evaluation. Endocervical and/or squamous metaplastic cells (endocervical component) are present. Performed By: #### L 7400.0280 #### [facility] [address] [place], [place], [id number] COMM . Normal . [facility] Comment on above: Order Comment: Speci men Comment: [id number] Specimen Comment: Source.............Cervix Specimen Comment: No. of containers..01 ThinPrep Vial Performed By: #### L 7400.0280 #### [facility] [address] [place], [place], [id number] COMMENT Comment Normal . [facility] Comment on above: Order Comment: Speci men Comment: [id number] Specimen Comment: Source.............Cervix Specimen Comment: No. of containers..01 ThinPrep Vial Result Comment: This liquid based ThinPrep(R) pap test was screened with the use of an image guided system. Performed By: #### L 7400.0280 #### [facility] [address] [place], [place], [id number] DIAG Comment Normal . [facility] Comment on above: Order Comment: Speci men Comment: [id number] Specimen Comment: Source.............Cervix Specimen Comment: No. of containers..01 ThinPrep Vial Result Comment: NEGA TIVE FOR INTRAEPITHELIAL LESION OR MALIGNANCY. Performed By: #### L 7400.0280 #### [facility] [address] [place], [place], [id number] HPV APTIMA, HR Negative Normal Negative [facility] Comment on above: Order Comment: Speci men Comment: [id number] Specimen Comment: Source.............Cervix Specimen Comment: No. of containers..01 ThinPrep Vial Result Comment: This nucleic acid amplification test detects fourteen high- risk HPV types (16,18,31,33,35,39,45,51,52,56,58,59,66,68) without differentiation. Performed By: #### L 7400.0280 #### [facility] [address] [place], [address] HPV Yary Rfx Comment Normal . [facility] Comment on above: Order Comment: Speci men Comment: [id number] Specimen Comment: Source.............Cervix Specimen Comment: No. of containers..01 ThinPrep Vial Result Comment: Crit eria not met, HPV Genotype not performed. Performed at: - [facility] [id number] [place] Supervisor: Terrie Joy MD, Phone: [phone] Performed at: = - [facility] [id number] [place] Supervisor: Terrie Joy MD, Phone: [phone] Performed By: #### L [id number] #### [facility] [address] [place], [place], [id number] (150 PAPSMR Comment Normal . [facility] Comment on above: Order Comment: Speci men Comment: [id number] Specimen Comment: Source.............Cervix Specimen Comment: No. of containers..01 ThinPrep Vial Result Comment: The Pap smear is a screening test designed to aid in the detection of premalignant and malignant conditions of the uterine cervix. It is not a diagnostic procedure and should not be used as the sole means of detecting cervical cancer. Both false-positive and false-negative reports do occur. Performed By: #### L 7400.0280 #### [facility] [address] [place], [place], [id number] PERFORM Comment Normal . [facility] Comment on above: Order Comment: Speci men Comment: [id number] Specimen Comment: Source.............Cervix Specimen Comment: No. of containers..01 ThinPrep Vial Result Comment: Kael Mondragon, Tso (ASCP) Performed By: #### L [id number] #### [facility] [address] [place], [place], [id number] Cervical or vaginal specimen microscopic examination by liquid based cytology (reportOrdered By: Millicent Jansen on 03-24-2025 Cytology report Cyto stain.thin prep Doc (Cvx/Vag) Comment . [facility] Comment on above: Criteria not met, HP V Genotype not performed.Performed at: - [address] [id number] Director: Terrie Joy MD, Phone: [phone] at: =[address] [id number] Director: Terrie Joy MD, Phone: [phone] Cervical or vagninal specime n microscopic examination by cytology stain (reported asOrdered By: Millicent Jansen on 03-24-2025 Cytology report Cyto stain Doc (Cvx/Vag) Comment . [facility] Comment on above: The Pap smear is a s creening test designed to aid in thedetection of premalignant and malignant conditions of theuterine cervix. It is not a diagnostic procedure andshould not be used as the sole means of detecting cervicalcancer. Both false-positive and false-negative reports dooccur. Detection in cervical specim en of any of human papilloma virus (HPV) 16, 18, 31, 33,Ordered By: Millicent Jansen on 03-24-2025 HPV 16+18+31+33+35+39+45+ 51+52+56+58+59+66+68 DNA Probe+sig amp Ql (Cvx) Negative Negative [facility] Comment on above: This nucleic acid am plification test detects fourteen high- risk HPV types (16,18,31,33,35,39,45,51,52,56,58,59,66,68)without differentiation. Laboratory - CytologyOrdered By: Millicent Jansen on 03-24-2025 Tso Cyto stain Nom (Cvx/Vag) [ID] Comment . [facility] Comment on above: Shon Mondragon Cytolog ist (ASCP) Laboratory - Miscellaneous t estsOrdered By: Millicent Jansen on 03-24-2025 Service comment (Unsp spec) [Interp] . . [facility] No Panel InformationOrdered By: Millicent Jansen on 03-24-2025 Pap Smear Specimen Adequacy Comment . [facility] Comment on above: Satisfactory for leora luation. Endocervical and/or squamous metaplasticcells (endocervical component) are present. Soccer [employer] Office Visit Reporton 03-24-2025 Soccer [employer] Office Visit Report [facility] [address], [address] [place] [address] OFFICE VISIT Date of Service: 03/24/25 MR#: [id number] Acct: [id number] Name: OSWALDO MOREL Rep #: [id number] : 1985 Provider: Dr. 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 Required: No Is patient in pain?: No Allergies No Known Allergies Allergy (Verified 03/24/25 12:09) Medications ???Medication ???Instructions ???Recorded ???Confirmed ???Type lisinopril 5 mg tablet (Zestril) 5 mg PO DAILY 05/31/18 03/10/24 Hi story atenolol 25 mg tablet (Tenormin) 50 mg PO DAILY 03/10/24 03/10/24 H istory insulin glargine 100 unit/mL (3 20 unit subcut QPM 03/10/24 History mL) subcutaneous pen (Lantus Solostar U-100 Insulin) levothyroxine 112 mcg capsule 112 mcg PO DAILY 03/10/24 03/10/24 History metformin 500 mg tablet 1,000 mg PO BID 03/10/24 03/10/24 History pantoprazole 40 mg tablet,delayed 40 mg PO DAILY 03/10/24 03/10/24 History release apple cider vinegar 500 mg tablet mg PO 03/24/25 03/24/25 History aspirin 81 mg tablet,delayed 81 mg PO QDAY 03/24/25 03/24/25 Hi story release empagliflozin 25 mg tablet 25 mg PO QDAY 03/24/25 03/24/25 Hi story (Jardiance) escitalopram oxalate 10 mg tablet 10 mg PO QDAY 03/24/25 03/24/25 H istory (Lexapro) fluticasone propionate 50 1 spray intranasal QDAY 03/24/25 0 03/24/25 History mcg/actuation nasal spray,suspension (Flonase Allergy Relief) insulin lispro 100 unit/mL 1 sliding scale dose subcut 03/24/25 History subcutaneous pen (Humalog KwikPen USEASDIRECTD (U-100) Insulin) onabotulinumtoxinA 200 unit 10 unit IM .every 3months 03/24/25 03/24/25 History solution for injection (Botox) rosuvastatin 10 mg tablet (Crestor) 10 mg PO QDAY 03/24/25 03/24/25 History tirzepatide 5 mg/0.5 mL 5 mg subcut QWEEK 03/24/25 5 History subcutaneous pen injector (Mounjaro) Post menopausal: No Patient : No : No PFSH Medical History High cholesterol Hypertension Depression Type 2 diabetes mellitus Hypothyroidism Surgical History S/P tonsillectomy and adenoidectomy Family History Grandfather Colon cancer Cancer Lung cancer Father Hypertension Heart disease Diabetes Mother Myocardial infarction Diabetes Hypertension Brother Myocardial infarction Social History adopted: No housing: house number of children: 0 current occupational status: employed 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 Smoking Status: Never smoker alcohol intake: current alcohol intake frequency: holidays/special occasions only substance use type: does not use what type of physical activity do you participate in: none seatbelt use: always do you feel safe at home: Yes additional 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 She states that she has minimal pain, just an increase urge to pee a lot. Last PAP: 2019 History of abnormal PAP: Last mammogram: 10/2024 History of abnormal mammogram: no Colon cancer screening: due in 5 years Other preventative health care screenings: followed by pcp Female Reproductive History Cycle Length: 21-35 Bleeding Duration: 5 Questions: metorrhagia: No, sexually active: No, dyspareunia: No and PCB: No Menopausal Symptoms: No hot flashes, No night sweats, No weight change, No mood changes, No difficulty concentrating, No sleep problems and No change in libido ROS Const Constitutional: Reports as per HPI; Denies fatigue, increased appetite, poor appetite, night sweats, weight gain or weight loss Cardio Card: Denies chest pain Resp Resp: Denies cough or dyspnea GI GI: Reports as per HPI; Denies abdominal pain, bloating, constipation, nausea or vomiting : Reports as per HPI and other; Denies difficulty voiding, dysuria, hematuria, hot flashes, nipple discharge, pelvic pain, prolapse symptoms, urinary frequency, urinary (more content not included)... [facility] [place] CONTINUOUS GLUCOSE MONITO RING ANALYSIS I&Zander 03-07-2025 Jesus Alvarez CNP 03/07/2025 5:49 PM CGM download demonstrates time in target range 41%, high 46%, very high 13%, low/very low 0%. GMI = 8.1%. CGM data is demonstrating elevated blood sugars currently. Information she recently received a cortisone injection. There is evidence of postprandial hyperglycemia that will go into the overnight hours. Based on CGM download and discussion with patient we are going to continue Lantus 20 units, Humalog sliding scale with meals and times a day, Jardiance, metformin, and we are going to increase Mounjaro 2 5 mg weekly. We will re-evaluate in 3 months. [facility] LG Jt Injection/Arthrocentes is: R subacromial bursaon 03-06-2025 Antwon Martin CNP 03/06/2025 2:31 PM LG Jt Injection/Arthrocentes is: R subacromial bursa Performed by: Antwon Martin CNP Authorized by: Antwon Martin CNP CPT 13077 - Large Joint Arthrocentesis: Consent given by: Patient Time out: Immediately prior to the procedure a time out was called Physician or proceduralist has discussed critical or nonroutine steps, procedure duration and anticipated blood loss: Yes Supporting Documentation: Indications: Pain Procedure Details: Location: Shoulder Site: R subacromial bursa Prep: patient was prepped and draped in usual sterile fashion Needle size: 22 G Approach: Posterior Medications: 1 mL dexAMETHasone 4 mg/mL, 1 mL triamcinolone acetonide 40 mg/mL Anesthetic used: Bupivacaine 0.25% Anesthetic amount (mL): 3 Patient tolerance: Patient tolerated the procedure well with no immediate complications [facility] CBCon 03-04-2025 ABSOLUTE BAS 0.0 10*3/uL Normal 0.0-0.2 [facility] Comment on above: Performed By: #### T 42, TSH2 #### Testing performed at [facility] [address] [place] [address] ABSOLUTE EOS 0.2 10*3/uL Normal 0.0-0.7 [facility] Comment on above: Performed By: #### T 42, TSH2 #### Testing performed at [address] [address] ABSOLUTE NEUTROPHIL COUNT 6.8 10*3/uL High 1.4-6.5 [facility] Comment on above: Performed By: #### T 42, TSH2 #### Testing performed at [address] [address] Basophils/100 WBC (Bld) 0.4 % Normal 0.0-2.0 [facility] Comment on above: Performed By: #### T 42, TSH2 #### Testing performed at [address] [place] [address] DTYPE AUTO DIFF Normal [facility] Comment on above: Performed By: #### T 42, TSH2 #### Testing performed at [address] [address] Eosinophils/100 WBC (Bld) 2.1 % Normal 0.0-11.0 [facility] Comment on above: Performed By: #### T 42, TSH2 #### Testing performed at [address] [address] Erythrocyte distribution width (RBC) [Ratio] 14.1 % Normal 11.5-14.5 [facility] Comment on above: Performed By: #### T 42, TSH2 #### Testing performed at [address] [address] Hematocrit (Bld) [Volume fraction] 45.6 % Normal 36.0-48.0 [facility] Comment on above: Performed By: #### T 42, TSH2 #### Testing performed at [address] [address] Hemoglobin (Bld) [Mass/Vol] 14.8 g/dL Normal 12.0-16.0 [facility] Comment on above: Performed By: #### T 42, TSH2 #### Testing performed at [address] [address] Lymphocytes (Bld) [#/Vol] 2.1 10*3/uL Normal 1.2-3.4 [facility] Comment on above: Performed By: #### T 42, TSH2 #### Testing performed at [address] [place] [address] Lymphocytes/100 WBC (Bld) 20.8 % Normal 20.0-55.0 [facility] Comment on above: Performed By: #### T 42, TSH2 #### Testing performed at [address] [place] [address] MCH (RBC) [Entitic mass] 28.0 pg Normal 26.0-35.0 [facility] Comment on above: Performed By: #### T 42, TSH2 #### Testing performed at [address] [place] [address] MCHC (RBC) [Mass/Vol] 32.4 g/dL Normal 27.0-37.0 [facility] Comment on above: Performed By: #### T 42, TSH2 #### Testing performed at [address] [place] [address] MCV (RBC) [Entitic vol] 86.3 fL Normal 80.0-100.0 [facility] Comment on above: Performed By: #### T 42, TSH2 #### Testing performed at [address] [place] [address] Monocytes (Bld) [#/Vol] 1.1 10*3/uL High 0.0-0.7 [facility] Comment on above: Performed By: #### T 42, TSH2 #### Testing performed at [address] [place] [address] Monocytes/100 WBC (Bld) 10.7 % High 0.0-10.0 [facility] Comment on above: Performed By: #### T 42, TSH2 #### Testing performed at [address] [place] [address] Neutrophils/100 WBC (Bld) 66.0 % Normal 37.0-75.0 [facility] Comment on above: Performed By: #### T 42, TSH2 #### Testing performed at [address] [place] [address] Platelet mean volume (Bld) [Entitic vol] 7.5 fL Normal 7.4-11.0 [facility] Comment on above: Performed By: #### T 42, TSH2 #### Testing performed at [address] [place] [address] Platelets (Bld) [#/Vol] 437 10*3/uL High 130-400 [facility] Comment on above: Performed By: #### T 42, TSH2 #### Testing performed at [address] [place] [address] RBC (Bld) [#/Vol] 5.28 10*6/uL Normal 4.0-5.4 [facility] Comment on above: Performed By: #### T 42, TSH2 #### Testing performed at [address] [address] WBC (Bld) [#/Vol] 10.3 10*3/uL Normal 3.6-11.0 [facility] Comment on above: Performed By: #### T 42, TSH2 #### Testing performed at [address] [address] CMP FASTINGon 03-04-2025 A:G RATIO 1.[address] [facility] Comment on above: Performed By: #### A CBC, CMPF, LIPA2 #### Testing performed at [address] [address] ALBUMIN 4.8 G/dl Normal 3.5-5.0 [facility] Comment on above: Performed By: #### A CBC, CMPF, LIPA2 #### Testing performed at [address] [address] ALP [Catalytic activity/Vol] 95 U/L Normal 38-126 [facility] Comment on above: Performed By: #### A CBC, CMPF, LIPA2 #### Testing performed at [address] [place] [address] ALT [Catalytic activity/Vol] 27 U/L Normal <35 [facility] Comment on above: Performed By: #### A CBC, CMPF, LIPA2 #### Testing performed at [address] [address] AST [Catalytic activity/Vol] 23 U/L Normal 14-36 [facility] Comment on above: Performed By: #### A CBC, CMPF, LIPA2 #### Testing performed at [address] [address] Bilirubin [Mass/Vol] 0.4 mg/dL Normal 0.2-1.3 [facility] Comment on above: Performed By: #### A CBC, CMPF, LIPA2 #### Testing performed at [address] [address] Calcium [Mass/Vol] 9.3 mg/dL Normal 8.4-10.2 [facility] Comment on above: Performed By: #### A CBC, CMPF, LIPA2 #### Testing performed at [address] [address] Chloride [Moles/Vol] 101 mmol/L Normal 98-107 [facility] Comment on above: Result Comment: [place] note: Triglyceride levels of 600mg/dL or higher may positively bias chloride results by approximately 2.1 mmol Performed By: #### A CBC, CMPF, LIPA2 #### Testing performed at [address] [address] CO2 [Moles/Vol] 22 mmol/L Normal 22-30 [facility] Comment on above: Performed By: #### A CBC, CMPF, LIPA2 #### Testing performed at [address] [address] Creatinine [Mass/Vol] 0.77 mg/dL Normal 0.70-1.20 [facility] Comment on above: Performed By: #### A CBC, CMPF, LIPA2 #### Testing performed at [address] [address] EST. GFR, 107 ml/min/1.73sq.m [facility] Comment on above: Performed By: #### A CBC, CMPF, LIPA2 #### Testing performed at [address] [address] EST. GFR,Non 88 ml/min/1.73sq.m [facility] Comment on above: Performed By: #### A CBC, CMPF, LIPA2 #### Testing performed at [address] [address] GFR Information Average GFR for 40-4 9 years old = 99. Normal [facility] Comment on above: Result Comment: Rn Bone Marrow Transplant ced Kidney disease, GFR = <60. Kidney failure, GFR = <15. The GFR estimate is not adjusted for extreme body surface area or acute process, nor has it been validated for women or ethnic groups other than and . Performed By: #### A CBC, CMPF, LIPA2 #### Testing performed at [address] [address] Glucose [Mass/Vol] 176 mg/dL High 70-100 [facility] Comment on above: Result Comment: NORMAL <100 mg/dL PREDIABETES 101-126 mg/dL DIABETES 126 mg/dL or higher Performed By: #### A CBC, CMPF, LIPA2 #### Testing performed at [address] [address] Potassium [Moles/Vol] 4.7 mmol/L Normal 3.5-5.1 [facility] Comment on above: Performed By: #### A CBC, CMPF, LIPA2 #### Testing performed at [address] [address] Protein [Mass/Vol] 7.9 g/dL Normal 6.3-8.2 [facility] Comment on above: Performed By: #### A CBC, CMPF, LIPA2 #### Testing performed at [address] [address] Sodium [Moles/Vol] 139 mmol/L Normal 137-145 [facility] Comment on above: Performed By: #### A CBC, CMPF, LIPA2 #### Testing performed at [address] [address] Urea nitrogen [Mass/Vol] 20 mg/dL Normal 7-20 [facility] Comment on above: Performed By: #### A CBC, CMPF, LIPA2 #### Testing performed at [address] [address] FREE T4on 03-04-2025 Free T4 [Mass/Vol] 1.31 ng/dL Normal 0.78-2.19 [facility] Comment on above: Performed By: #### T 42, TSH2 #### Testing performed at [address] [address] HEMOGLOBIN A1Con 03-04-2025 Glucose [Mass/Vol] 151 mg/dL Normal [facility] Comment on above: Performed By: #### A CBC, CMPF, LIPA2 #### Testing performed at [address] [address] HbA1c (Bld) [Mass fraction] 6.9 % High 0-6 [facility] Comment on above: Result Comment: NORMAL <5.7% PREDIABETES 5.7-6.4% DIABETES 6.5% OR HIGHER Performed By: #### A CBC, CMPF, LIPA2 #### Testing performed at [address] [address] LIPID PROFILEon 03-04-2025 Cholesterol [Mass/Vol] 187 mg/dL Normal 107-217 [facility] Comment on above: Performed By: #### A CBC, CMPF, LIPA2 #### Testing performed at [address] [address] Cholesterol in HDL [Mass/Vol] 45 mg/dL Normal 33-75 [facility] Comment on above: Performed By: #### A CBC, CMPF, LIPA2 #### Testing performed at [address] [address] Cholesterol in LDL [Mass/Vol] 81 mg/dL Normal <100 [facility] Comment on above: Performed By: #### A CBC, CMPF, LIPA2 #### Testing performed at [address] [address] Cholesterol in VLDL [Mass/Vol] 61 mg/dL High 5-25 [facility] Comment on above: Performed By: #### A CBC, CMPF, LIPA2 #### Testing performed at [address] [address] Cholesterol.total/Cho lesterol in HDL [Mass ratio] 4.16 {ratio} Normal [facility] Comment on above: Result Comment: RISK TOTAL/HDL RATIO MEN WOMEN 1/2 AVERAGE 3.43 3.27 AVERAGE 4.97 4.44 2X AVERAGE 9.55 7.05 3X AVERAGE 23.99 11.04 Performed By: #### A CBC, CMPF, LIPA2 #### Testing performed at [address] [address] Triglyceride [Mass/Vol] 305 mg/dL High 0-150 [facility] Comment on above: Performed By: #### A CBC, CMPF, LIPA2 #### Testing performed at [address] [address] MALB/CREAT RATIO,URINEon MALB/CREAT RATIO,URINE 18.1 mg MALB/g CREAT Normal 1.3-30.0 [facility] Comment on above: Performed By: #### A CBC, CMPF, LIPA2 #### Testing performed at [address] [address] URINE CREATININE RANDOM 64.8 MG/DL Normal [facility] Comment on above: Result Comment: NO N ORMAL VALUES ESTABLISHED FOR RANDOM SPECIMENS Performed By: #### A CBC, CMPF, LIPA2 #### Testing performed at [address] [address] MICROALBUMIN,RANDOM URINE 11.7 mg/L Normal 0.0-16.7 [facility] Comment on above: Performed By: #### A CBC, CMPF, LIPA2 #### Testing performed at [address] [address] TSHon 03-04-2025 TSH 2.410 uIU/ML Normal 0.465-4.680 [facility] Comment on above: Performed By: #### T 42, TSH2 #### Testing performed at [address] [address] US RENAL RETROPERITONEALon 0 01-15-2025 US RENAL RETROPERITONEAL EXAM: US RENAL RETROPERITONEAL DEMOGRAPHICS: 39-year-old female ORDER INDICATION: kidney stones. COMPARISON: 05/07/2024 renal ultrasound, 02/24/2024 CT abdomen and pelvis TECHNIQUE: Ultrasound of the kidneys and bladder. FINDINGS: Right kidney: Normal in size and echogenicity. Measures 12.8 x 5.9 x 5.3 cm. Cortical thickness of 1.0 cm. Normal cortical medullary differentiation pattern. No hydronephrosis. Multiple echogenic calculi measuring up to 6 mm. Left kidney: Normal in size and echogenicity. Measures 12.6 x 5.7 x 5.0 cm. Cortical thickness of 0.8 cm. Normal cortical medullary differentiation pattern. No hydronephrosis. Multiple echogenic calculi measuring up to 0.5 cm. Bladder: Well-distended. No bladder wall thickening. Both ureteral jets are identified. Miscellaneous: Incidental note of complex left ovarian cyst or 2 adjacent simple appearing cysts, measuring up to 6.8 x 4.5 x 3.6 cm. IMPRESSION: No hydronephrosis. Bilateral small nonobstructing renal calculi. Complex left ovarian cyst or 2 adjacent simple appearing cysts, measuring up to 6.8 x 4.5 [address] [facility] [place] CONTINUOUS GLUCOSE MONITO RING ANALYSIS I&Zander 12-06-2024 Jesus Alvarez CNP 12/06/2024 3:22 PM CGM download demonstrates time in target range 45%, high 41%, very high 14%, low/very low 0% GMI = 8.0%. CGM data is demonstrating postprandial hyperglycemia. Overnight hyperglycemia occasionally depending on foods. Most overnight look reasonable. Based on CGM download discussion with patient we are going to continue Lantus, metformin, and Ozempic. We are going to try to change Ozempic to Mounjaro. And we are going to increase Jardiance. Patient is going to continue using her Humalog sliding scale with her meals. We will re-evaluate in 3 months. [facility] CBC(NO DIFF)on 12-02-2024 Erythrocyte distribution width (RBC) [Ratio] 15.8 % High 11.5-14.5 [facility] Comment on above: Performed By: #### T 42, TSH2 #### Testing performed at [address] [address] Hematocrit (Bld) [Volume fraction] 43.5 % Normal 36.0-48.0 [facility] Comment on above: Performed By: #### T 42, TSH2 #### Testing performed at [address] [address] Hemoglobin (Bld) [Mass/Vol] 14.2 g/dL Normal 12.0-16.0 [facility] Comment on above: Performed By: #### T 42, TSH2 #### Testing performed at [address] [address] MCH (RBC) [Entitic mass] 27.7 pg Normal 26.0-35.0 [facility] Comment on above: Performed By: #### T 42, TSH2 #### Testing performed at [address] [address] MCHC (RBC) [Mass/Vol] 32.6 g/dL Normal 27.0-37.0 [facility] Comment on above: Performed By: #### T 42, TSH2 #### Testing performed at [address] [address] MCV (RBC) [Entitic vol] 85.2 fL Normal 80.0-100.0 [facility] Comment on above: Performed By: #### T 42, TSH2 #### Testing performed at [address] [address] Platelet mean volume (Bld) [Entitic vol] 7.8 fL Normal 7.4-11.0 [facility] Comment on above: Performed By: #### T 42, TSH2 #### Testing performed at [address] [address] Platelets (Bld) [#/Vol] 415 10*3/uL High 130-400 [facility] Comment on above: Performed By: #### T 42, TSH2 #### Testing performed at [address] [address] RBC (Bld) [#/Vol] 5.11 10*6/uL Normal 4.0-5.4 [facility] Comment on above: Performed By: #### T 42, TSH2 #### Testing performed at [address] [address] WBC (Bld) [#/Vol] 12.8 10*3/uL High 3.6-11.0 [facility] Comment on above: Performed By: #### T 42, TSH2 #### Testing performed at [address] [address] CMP FASTINGon 12-02-2024 A:G RATIO 1.[address] [facility] Comment on above: Performed By: #### T 42, TSH2 #### Testing performed at [address] [address] ALBUMIN 4.6 G/dl Normal 3.5-5.0 [facility] Comment on above: Performed By: #### T 42, TSH2 #### Testing performed at [address] [address] ALP [Catalytic activity/Vol] 79 U/L Normal 38-126 [facility] Comment on above: Performed By: #### T 42, TSH2 #### Testing performed at [address] [address] ALT [Catalytic activity/Vol] 23 U/L Normal <35 [facility] Comment on above: Performed By: #### T 42, TSH2 #### Testing performed at [address] [address] AST [Catalytic activity/Vol] 23 U/L Normal 14-36 [facility] Comment on above: Performed By: #### T 42, TSH2 #### Testing performed at [address] [address] Bilirubin [Mass/Vol] 0.3 mg/dL Normal 0.2-1.3 [facility] Comment on above: Performed By: #### T 42, TSH2 #### Testing performed at [address] [address] Calcium [Mass/Vol] 9.6 mg/dL Normal 8.4-10.2 [facility] Comment on above: Performed By: #### T 42, TSH2 #### Testing performed at [address] [address] Chloride [Moles/Vol] 101 mmol/L Normal 98-107 [facility] Comment on above: Result Comment: [employer] note: Triglyceride levels of 600mg/dL or higher may positively bias chloride results by approximately 2.1 mmol Performed By: #### T 42, TSH2 #### Testing performed at [address] [address] CO2 [Moles/Vol] 23 mmol/L Normal 22-30 formerly [facility] Comment on above: Performed By: #### T 42, TSH2 #### Testing performed at [address] [address] Creatinine [Mass/Vol] 0.59 mg/dL Low 0.70-1.20 [facility] Comment on above: Performed By: #### T 42, TSH2 #### Testing performed at [address] [address] EST. GFR, 145 ml/min/1.73sq.m [facility] Comment on above: Performed By: #### T 42, TSH2 #### Testing performed at [address] [address] EST. GFR,Non 120 ml/min/1.73sq.m [facility] Comment on above: Performed By: #### T 42, TSH2 #### Testing performed at [address] [address] GFR Information Average GFR for 40-4 9 years old = 99. Normal [facility] Comment on above: Result Comment: Rn Bone Marrow Transplant ced Kidney disease, GFR = <60. Kidney failure, GFR = <15. The GFR estimate is not adjusted for extreme body surface area or acute process, nor has it been validated for women or ethnic groups other than and . Performed By: #### T 42, TSH2 #### Testing performed at [address] [address] Glucose [Mass/Vol] 127 mg/dL High 70-100 [facility] Comment on above: Result Comment: NORMAL <100 mg/dL PREDIABETES 101-126 mg/dL DIABETES 126 mg/dL or higher Performed By: #### T 42, TSH2 #### Testing performed at [address] [address] Potassium [Moles/Vol] 4.5 mmol/L Normal 3.5-5.1 [facility] Comment on above: Performed By: #### T 42, TSH2 #### Testing performed at [address] [address] Protein [Mass/Vol] 7.6 g/dL Normal 6.3-8.2 [facility] Comment on above: Performed By: #### T 42, TSH2 #### Testing performed at [address] [address] Sodium [Moles/Vol] 134 mmol/L Low 137-145 [facility] Comment on above: Performed By: #### T 42, TSH2 #### Testing performed at [address] [address] Urea nitrogen [Mass/Vol] 18 mg/dL Normal 7-20 [facility] Comment on above: Performed By: #### T 42, TSH2 #### Testing performed at [address] [address] FREE T4on 12-02-2024 Free T4 [Mass/Vol] 1.16 ng/dL Normal 0.78-2.19 [facility] Comment on above: Performed By: #### A CBC, CMPF, LIPA2 #### Testing performed at [address] [address] HEMOGLOBIN A1Con 12-02-2024 Glucose [Mass/Vol] 160 mg/dL Normal [facility] Comment on above: Performed By: #### A CBC, CMPF, LIPA2 #### Testing performed at [address] [address] HbA1c (Bld) [Mass fraction] 7.2 % High 0-6 [facility] Comment on above: Result Comment: NORMAL <5.7% PREDIABETES 5.7-6.4% DIABETES 6.5% OR HIGHER Performed By: #### A CBC, CMPF, LIPA2 #### Testing performed at [address] [address] LIPID PROFILEon 12-02-2024 Cholesterol [Mass/Vol] 184 mg/dL Normal 107-217 [facility] Comment on above: Performed By: #### T 42, TSH2 #### Testing performed at [address] [address] Cholesterol in HDL [Mass/Vol] 47 mg/dL Normal 33-75 [facility] Comment on above: Performed By: #### T 42, TSH2 #### Testing performed at [address] [address] Cholesterol in LDL [Mass/Vol] 81 mg/dL Normal <100 [facility] Comment on above: Performed By: #### T 42, TSH2 #### Testing performed at [address] [address] Cholesterol in VLDL [Mass/Vol] 56 mg/dL High 5-25 [facility] Comment on above: Performed By: #### T 42, TSH2 #### Testing performed at [address] [address] Cholesterol.total/Cho lesterol in HDL [Mass ratio] 3.91 {ratio} Normal [facility] Comment on above: Result Comment: RISK TOTAL/HDL RATIO MEN WOMEN 1/2 AVERAGE 3.43 3.27 AVERAGE 4.97 4.44 2X AVERAGE 9.55 7.05 3X AVERAGE 23.99 11.04 Performed By: #### T 42, TSH2 #### Testing performed at [address] [address] Triglyceride [Mass/Vol] 280 mg/dL High 0-150 [facility] Comment on above: Performed By: #### T 42, TSH2 #### Testing performed at [address] [address] MALB/CREAT RATIO,URINEon MALB/CREAT RATIO,URINE 14.6 mg MALB/g CREAT Normal 1.3-30.0 [facility] Comment on above: Performed By: #### A CBC, CMPF, LIPA2 #### Testing performed at [address] [address] MICROALBUMIN,RANDOM URINE 10.6 mg/L Normal 0.0-16.7 [facility] Comment on above: Performed By: #### A CBC, CMPF, LIPA2 #### Testing performed at [address] [address] URINE CREATININE RANDOM 72.7 MG/DL Normal [facility] Comment on above: Result Comment: NO N ORMAL VALUES ESTABLISHED FOR RANDOM SPECIMENS Performed By: #### A CBC, CMPF, LIPA2 #### Testing performed at [address] [address] TSHon 12-02-2024 TSH 2.420 uIU/ML Normal 0.465-4.680 [facility] Comment on above: Performed By: #### A CBC, CMPF, LIPA2 #### Testing performed at [place] [address] [place] [address] LG Jt Injection/Arthrocentes is: R kneeon 11-28-2024 Antwon Martin CNP 11/28/2024 2:26 PM LG Jt Injection/Arthrocentes is: R knee Performed by: Antwon Martin CNP Authorized by: Antwon Martin CNP CPT 63720 - Large Joint Arthrocentesis: Consent given by: Patient Time out: Immediately prior to the procedure a time out was called Physician or proceduralist has discussed critical or nonroutine steps, procedure duration and anticipated blood loss: Yes Supporting Documentation: Indications: Pain Procedure Details: Location: Knee Site: R knee Prep: patient was prepped and draped in usual sterile fashion Needle size: 22 G Approach: Anterolateral Medications: 1 mL dexAMETHasone 4 mg/mL, 1 mL triamcinolone acetonide 40 mg/mL Anesthetic used: Lidocaine 1% and Bupivacaine 0.25% Anesthetic amount (mL): 3 Patient tolerance: Patient tolerated the procedure well with no immediate complications [facility] LG Jt Injection/Arthrocentes is: R subacromial bursaon 11-28-2024 Antwon Martin CNP 11/28/2024 2:26 PM LG Jt Injection/Arthrocentes is: R subacromial bursa Performed by: Antwon Martin CNP Authorized by: Antwon Martin CNP CPT 88278 - Large Joint Arthrocentesis: Consent given by: Patient Time out: Immediately prior to the procedure a time out was called Physician or proceduralist has discussed critical or nonroutine steps, procedure duration and anticipated blood loss: Yes Supporting Documentation: Indications: Pain Procedure Details: Location: Shoulder Site: R subacromial bursa Prep: patient was prepped and draped in usual sterile fashion Needle size: 22 G Approach: Posterior Medications: 1 mL dexAMETHasone 4 mg/mL, 1 mL triamcinolone acetonide 40 mg/mL Anesthetic used: Bupivacaine 0.25% Anesthetic amount (mL): 3 Patient tolerance: Patient tolerated the procedure well with no immediate complications [facility] No Panel Informationon 11-[address] [facility] SCRN MAMM (CAD)W/BAYLEE BILATo n 11-21-2024 SCRN MAMM (CAD)W/BAYLEE BILAT [facility] Services [address] [place] [address] SCRN MAMM (CAD)W/BAYLEE BILAT MR#: [id number] Acct: [id number] Name: OSWALDO MOREL Rep #: [id number] : 1985 F 38 From: Joe Vallejo MD PCP: CARMEN MCKEON Status: REG CLI Study: SCRN MAMM (CAD)W/BAYLEE BILAT Date of Exam: 10/31 02/20 Exam# [id number] Ordering Dr: Diamante Khalil CNM [id number] MAMMOGRAPHY - BILATERAL SCREENING 3-D TOMOSYNTHESIS REASON FOR EXAM: Female, 38 years old. screening mammogram PERTINENT HISTORY: No significant family history. TECHNIQUE: 2-D mammograms and 3-D Tomosynthesis of the breast (s) were performed. CAD was performed. COMPARISON: None. FINDINGS: The breast composition is composed of scattered fibroglandular density. Scattered benign calcifications are seen. No dense spiculated masses or suspicious microcalcifications are identified. No architectural distortion is identified. There is no skin thickening or retraction. There has been no significant change since the prior study. BI/SCRN MAMM (CAD)W/BAYLEE BILAT IMPRESSION: No mammographic signs of malignancy. Routine yearly mammograms recommended. ASSESSMENT CATEGORY: BIRADS Category 1: Negative. A letter regarding these results will be sent to the patient by the facility within 30 days. FOLLOW UP RECOMMENDATION: Yearly follow up mammogram recommended. (A) Approximately 10% of breast cancers are not detected by mammography. A normal mammogram should not delay biopsy of a clinically suspicious abnormality. Electronically Signed: Joe Vallejo MD at 18:03 EST , CC: SUNIL Khalil; CARMEN MCKEON Assistant Professor Of Spanish: Signed Normal [facility] POCT URINALYSIS DIPSTICK AUT OMATED W/O SCOPon 11-07-2024 Amorphous sediment LM Ql (Urine sed) [facility] Appearance (U) clear [facility] Bacteria LM Ql (Urine sed) [facility] Bilirubin Ql (U) Negative [facility] Casts LM.LPF (Urine sed) [#/Area] [facility] Color (U) yellow [facility] Crystals LM Nom (Urine sed) [facility] Epithelial cells.squamous LM.HPF (Urine sed) [#/Area] [facility] Flow cytometry specialist review Otis (Unsp spec) [Interp] [facility] Glucose Auto test strip (U) [Mass/Vol] mg/dL mg/dL [facility] Ketones [Mass/Vol] Negative mg/dL [facility] Leukocyte esterase Qn (U) [facility] Leukocyte esterase Test strip Ql (U) Negative [facility] Nitrite Ql (U) Negative [facility] pH (U) 6 [pH] 5 - 7 [facility] Protein Ql (U) Negative mg/dL [facility] RBC LM.HPF (Urine sed) [#/Area] [facility] RBC Ql (U) Negative [facility] Specific gravity (U) [Rel density] 1.020 1.001 - 1.035 [facility] Transitional cells LM Ql (Urine sed) [facility] Urobilinogen Qn (U) 0.2 [facility] WBC LM.HPF (Urine sed) [#/Area] [facility] CBCon 10-04-2024 ABSOLUTE BAS 0.0 10*3/uL Normal 0.0-0.2 [facility] Comment on above: Performed By: #### A CBC, CMPF, LIPA2 #### Testing performed at [address] [address] ABSOLUTE EOS 0.3 10*3/uL Normal 0.0-0.7 [facility] Comment on above: Performed By: #### A CBC, CMPF, LIPA2 #### Testing performed at [address] [address] ABSOLUTE NEUTROPHIL COUNT 7.2 10*3/uL High 1.4-6.5 [facility] Comment on above: Performed By: #### A CBC, CMPF, LIPA2 #### Testing performed at [address] [address] Basophils/100 WBC (Bld) 0.5 % Normal 0.0-2.0 [facility] Comment on above: Performed By: #### A CBC, CMPF, LIPA2 #### Testing performed at [address] [place] [address] DTYPE AUTO DIFF Normal [facility] Comment on above: Performed By: #### A CBC, CMPF, LIPA2 #### Testing performed at [address] [address] Eosinophils/100 WBC (Bld) 2.7 % Normal 0.0-11.0 [facility] Comment on above: Performed By: #### A CBC, CMPF, LIPA2 #### Testing performed at [address] [address] Lymphocytes (Bld) [#/Vol] 2.1 10*3/uL Normal 1.2-3.4 [facility] Comment on above: Performed By: #### A CBC, CMPF, LIPA2 #### Testing performed at [address] [place] [address] Lymphocytes/100 WBC (Bld) 19.1 % Low 20.0-55.0 [facility] Comment on above: Performed By: #### A CBC, CMPF, LIPA2 #### Testing performed at [address] [address] Monocytes (Bld) [#/Vol] 1.2 10*3/uL High 0.0-0.7 [facility] Comment on above: Performed By: #### A CBC, CMPF, LIPA2 #### Testing performed at [address] [address] Monocytes/100 WBC (Bld) 10.8 % High 0.0-10.0 [facility] Comment on above: Performed By: #### A CBC, CMPF, LIPA2 #### Testing performed at [address] [place] [address] Neutrophils/100 WBC (Bld) 66.9 % Normal 37.0-75.0 [facility] Comment on above: Performed By: #### A CBC, CMPF, LIPA2 #### Testing performed at [address] [address] Erythrocyte distribution width (RBC) [Ratio] 15.2 % High 11.5-14.5 [facility] Comment on above: Performed By: #### A CBC, CMPF, LIPA2 #### Testing performed at [address] [address] Hematocrit (Bld) [Volume fraction] 42.2 % Normal 36.0-48.0 [facility] Comment on above: Performed By: #### A CBC, CMPF, LIPA2 #### Testing performed at [address] [address] Hemoglobin (Bld) [Mass/Vol] 13.6 g/dL Normal 12.0-16.0 [facility] Comment on above: Performed By: #### A CBC, CMPF, LIPA2 #### Testing performed at [address] [address] MCH (RBC) [Entitic mass] 27.1 pg Normal 26.0-35.0 [facility] Comment on above: Performed By: #### A CBC, CMPF, LIPA2 #### Testing performed at [address] [address] MCHC (RBC) [Mass/Vol] 32.1 g/dL Normal 27.0-37.0 [facility] Comment on above: Performed By: #### A CBC, CMPF, LIPA2 #### Testing performed at [address] [address] MCV (RBC) [Entitic vol] 84.2 fL Normal 80.0-100.0 [facility] Comment on above: Performed By: #### A CBC, CMPF, LIPA2 #### Testing performed at [address] [address] Platelet mean volume (Bld) [Entitic vol] 7.8 fL Normal 7.4-11.0 [facility] Comment on above: Performed By: #### A CBC, CMPF, LIPA2 #### Testing performed at [address] [address] Platelets (Bld) [#/Vol] 402 10*3/uL High 130-400 [facility] Comment on above: Performed By: #### A CBC, CMPF, LIPA2 #### Testing performed at [address] [address] RBC (Bld) [#/Vol] 5.02 10*6/uL Normal 4.0-5.4 [facility] Comment on above: Performed By: #### A CBC, CMPF, LIPA2 #### Testing performed at [address] [address] WBC (Bld) [#/Vol] 10.8 10*3/uL Normal 3.6-11.0 [facility] Comment on above: Performed By: #### A CBC, CMPF, LIPA2 #### Testing performed at [address] [address] CBC, EDIF, PLATELETon 2023 ABSOLUTE BASOPHIL COUNT 0.0 10*3/uL 0.0 - 0.2 10*3/uL [facility] Basophils/100 WBC (Bld) 0.5 % 0.0 - 2.0 % [facility] Differential cell count method Nom (Bld) AUTO DIFF % [facility] Eosinophils (Bld) [#/Vol] 0.3 10*3/uL 0.0 - 0.7 10*3/uL [facility] Eosinophils/100 WBC (Bld) 2.7 % 0.0 - 11.0 % [facility] Erythrocyte distribution width (RBC) [Ratio] 15.2 % High 11.5 - 14.5 % [facility] Hematocrit (Bld) [Volume fraction] 42.2 % 36.0 - 48.0 % [facility] Hemoglobin (Bld) [Mass/Vol] 13.6 g/dL [facility] Interpretation and review of laboratory results Abnormal [facility] Lymphocytes (Bld) [#/Vol] 2.1 10*3/uL 1.2 - 3.4 10*3/uL [facility] Lymphocytes/100 WBC (Bld) 19.1 % Low 20.0 - 55.0 % [facility] MCH (RBC) [Entitic mass] 27.1 pg 26.0 - 35.0 PG [facility] MCHC (RBC) [Mass/Vol] 32.1 g/dL [facility] MCV (RBC) [Entitic vol] 84.2 fL [facility] Monocytes (Bld) [#/Vol] 1.2 10*3/uL High 0.0 - 0.7 10*3/uL [facility] Monocytes/100 WBC (Bld) 10.8 % High 0.0 - 10.0 % [facility] Neutrophils (Bld) [#/Vol] 7.2 10*3/uL High 1.4 - 6.5 10*3/uL [facility] Neutrophils/100 WBC (Bld) 66.9 % 37.0 - 75.0 % [facility] Platelet mean volume (Bld) [Entitic vol] 7.8 fL [facility] Platelets (Bld) [#/Vol] 402 10*3/uL High 130 - 400 10*3/uL [facility] RBC (Bld) [#/Vol] 5.02 10*6/uL 4.0 - 5.4 10*6/uL [facility] WBC (Bld) [#/Vol] 10.8 10*3/uL 3.6 - 11.0 10*3/uL [facility] CMP FASTINGon 10-04-2024 A:G RATIO 1.[address] [facility] Comment on above: Performed By: #### A CBC, CMPF, LIPA2 #### Testing performed at [address] [address] ALBUMIN 4.5 G/dl Normal 3.5-5.0 [facility] Comment on above: Performed By: #### A CBC, CMPF, LIPA2 #### Testing performed at [address] [address] ALP [Catalytic activity/Vol] 104 U/L Normal 38-126 [facility] Comment on above: Performed By: #### A CBC, CMPF, LIPA2 #### Testing performed at [address] [address] ALT [Catalytic activity/Vol] 22 U/L Normal <35 [facility] Comment on above: Performed By: #### A CBC, CMPF, LIPA2 #### Testing performed at [address] [address] AST [Catalytic activity/Vol] 23 U/L Normal 14-36 [facility] Comment on above: Performed By: #### A CBC, CMPF, LIPA2 #### Testing performed at [address] [address] Bilirubin [Mass/Vol] 0.5 mg/dL Normal 0.2-1.3 [facility] Comment on above: Performed By: #### A CBC, CMPF, LIPA2 #### Testing performed at [address] [address] Calcium [Mass/Vol] 9.2 mg/dL Normal 8.4-10.2 [facility] Comment on above: Performed By: #### A CBC, CMPF, LIPA2 #### Testing performed at [address] [address] Chloride [Moles/Vol] 105 mmol/L Normal 98-107 [facility] Comment on above: Result Comment: [employer] [place] note: Triglyceride levels of 600mg/dL or higher may positively bias chloride results by approximately 2.1 mmol Performed By: #### A CBC, CMPF, LIPA2 #### Testing performed at [address] [address] CO2 [Moles/Vol] 24 mmol/L Normal 22-30 [facility] Comment on above: Performed By: #### A CBC, CMPF, LIPA2 #### Testing performed at [address] [address] Creatinine [Mass/Vol] 0.80 mg/dL Normal 0.70-1.20 [facility] Comment on above: Performed By: #### A CBC, CMPF, LIPA2 #### Testing performed at [address] [address] EST. GFR, 103 ml/min/1.73sq.m Normal [facility] Comment on above: Performed By: #### A CBC, CMPF, LIPA2 #### Testing performed at [address] [address] EST. GFR,Non 85 ml/min/1.73sq.m Normal [facility] Comment on above: Performed By: #### A CBC, CMPF, LIPA2 #### Testing performed at [address] [address] GFR Information Average GFR for 30-3 9 years old = 107. Normal [facility] Comment on above: Result Comment: Rn Bone Marrow Transplant ced Kidney disease, GFR = <60. Kidney failure, GFR = <15. The GFR estimate is not adjusted for extreme body surface area or acute process, nor has it been validated for women or ethnic groups other than and . Performed By: #### A CBC, CMPF, LIPA2 #### Testing performed at [place] [id number] Glucose [Mass/Vol] 112 mg/dL High 70-100 [facility] Comment on above: Result Comment: NORMAL <100 mg/dL PREDIABETES 101-126 mg/dL DIABETES 126 mg/dL or higher Performed By: #### A CBC, CMPF, LIPA2 #### Testing performed at [address] [address] Potassium [Moles/Vol] 4.3 mmol/L Normal 3.5-5.1 [facility] Comment on above: Performed By: #### A CBC, CMPF, LIPA2 #### Testing performed at [address] [address] Protein [Mass/Vol] 7.3 g/dL Normal 6.3-8.2 [facility] Comment on above: Performed By: #### A CBC, CMPF, LIPA2 #### Testing performed at [address] [address] Sodium [Moles/Vol] 137 mmol/L Normal 137-145 [facility] Comment on above: Performed By: #### A CBC, CMPF, LIPA2 #### Testing performed at [address] [address] Urea nitrogen [Mass/Vol] 15 mg/dL Normal 7-20 [facility] Comment on above: Performed By: #### A CBC, CMPF, LIPA2 #### Testing performed at [address] [address] COMPREHENSIVE METABOLIC PANE Milo 11-05-2024 Albumin [Mass/Vol] 4.5 G/dl 3.5 - 5.0 G/dl [facility] Albumin/Globulin [Mass ratio] 1.6 {ratio} RATIO [facility] ALP [Catalytic activity/Vol] 104 U/L [facility] ALT [Catalytic activity/Vol] 22 U/L NINF [facility] AST [Catalytic activity/Vol] 23 U/L [facility] Bilirubin [Mass/Vol] 0.5 mg/dL [facility] Calcium [Mass/Vol] 9.2 mg/dL [facility] Chloride [Moles/Vol] 105 mmol/L [facility] Comment on above: Please note: Triglyc eride levels of 600mg/dL or higher may positively bias chloride results by approximately 2.1 mmol CO2 [Moles/Vol] 24 mmol/L [facility] Creatinine [Mass/Vol] 0.80 mg/dL [facility] GFR COMMENT Average GFR for 30-3 9 years old = 107. [facility] Comment on above: Chronic Kidney disea se, GFR = <60. Kidney failure, GFR = <15. The GFR estimate is not adjusted for extreme body surface area or acute process, nor has it been validated for women or ethnic groups other than and . GFR/1.73 sq M.predicted among blacks MDRD (S/P/Bld) [Vol rate/Area] 103 mL/min/{1.73_m2} ml/min/1.73s q.m [facility] GFR/1.73 sq M.predicted among non-blacks MDRD (S/P/Bld) [Vol rate/Area] 85 mL/min/{1.73_m2} ml/min/1.73s q.m [facility] Glucose post fast [Mass/Vol] 112 mg/dL High [facility] Comment on above: NORMAL <100 mg/dL PREDIABETES 101-126 mg/dL DIABETES 126 mg/dL or higher Interpretation and review of laboratory results Abnormal [facility] Potassium [Moles/Vol] 4.3 mmol/L [facility] Protein [Mass/Vol] 7.3 g/dL [facility] Sodium [Moles/Vol] 137 mmol/L [facility] Urea nitrogen [Mass/Vol] 15 mg/dL [facility] LIPASEon 10-04-2024 Lipase [Catalytic activity/Vol] 153 U/L 23 - 300 U/L [facility] LIPASE,SERUMon 10-04-2024 LIPASE,SERUM 153 U/L Normal 23-300 [facility] Comment on above: Performed By: #### A CBC, CMPF, LIPA2 #### Testing performed at [place] [address] [place] [address] No Panel Informationon 10-04 [facility] POCT URINALYSIS DIPSTICK NON AUTOMATEDon 10-04-2024 Amorphous sediment LM Ql (Urine sed) [facility] Appearance (U) clear [facility] Bacteria LM Ql (Urine sed) [facility] Bilirubin Ql (U) Negative [facility] Casts LM.LPF (Urine sed) [#/Area] [facility] Color (U) yellow [facility] Crystals LM Nom (Urine sed) [facility] Epithelial cells.squamous LM.HPF (Urine sed) [#/Area] [facility] Flow cytometry specialist review Otis (Unsp spec) [Interp] [facility] Glucose Auto test strip (U) [Mass/Vol] 1000 mg/dL [facility] Interpretation and review of laboratory results Abnormal [facility] Ketones [Mass/Vol] Negative mg/dL [facility] Leukocyte esterase Qn (U) [facility] Leukocyte esterase Test strip Ql (U) Negative [facility] Nitrite Ql (U) Negative [facility] pH (U) 6.0 [pH] 5 - 7 [facility] Protein Ql (U) Negative mg/dL [facility] RBC LM.HPF (Urine sed) [#/Area] [facility] RBC Ql (U) small [facility] Specific gravity (U) [Rel density] 1.020 1.001 - 1.035 [facility] Transitional cells LM Ql (Urine sed) [facility] Urobilinogen Qn (U) 0.2 [facility] WBC LM.HPF (Urine sed) [#/Area] [facility] URINE CULTUREon 10-04-2024 Bacteria identified Cx Nom (U) SPECIMEN DESCRIPTION URINE CLEAN CATCH CULTURE NO PATHOGENS ISOLATED * Result Note: Testing performed at [place] [address] * REPORT STATUS 10/06/2024 * Result Note: FINAL * [facility] Comment on above: Performed By: #### A URNC #### Testing performed at [facility] [address] [place] [address] Testing performed at [facility] [address] [place] [address] URINE CULTUREon 09-27-2024 Bacteria identified Cx Nom (U) SPECIMEN DESCRIPTION URINE CLEAN CATCH COLONY COUNT 10,000-20,000 C/C/ML CULTURE KLEBSIELLA PNEUMONIAE * Result Note: Testing performed at [place] [address] * REPORT STATUS 09/27/2024 * Result Note: FINAL * ORGANISM KLEBSIELLA PNEUMONIAE * Result Note: KLEBSIELLA PNEUMONIAE * METHOD YANELIS AMPICILLIN >=32 RESISTANT AMPICILLIN/SULBACTAM 8 SUSCEPTIBLE CEFTRIAXONE <=1 SUSCEPTIBLE CEFAZOLIN <=4 SUSCEPTIBLE IMIPENEM <=0.25 SUSCEPTIBLE GENTAMICIN <=1 SUSCEPTIBLE TRIMETH-SULFA <=20 SUSCEPTIBLE AMOXICILLIN/CLAVULANIC A <=2 SUSCEPTIBLE NITROFURANTOIN 64 INTERMEDIATE PIPERACILLIN/TAZOBACTA M <=4 SUSCEPTIBLE LEVOFLOXACIN <=0.12 SUSCEPTIBLE ESBL NEGATIVE ERTAPENEM <=0.5 SUSCEPTIBLE CEFEPIME <=1 SUSCEPTIBLE CEFTAZIDIME <=1 SUSCEPTIBLE [facility] Comment on above: Performed By: #### A URNC #### Testing performed at [facility] [address] [place] [address] POCT URINE DIPSTICK AUTOMATE DOrdered By: Betsy Hinojosa on 09-24-2024 Amorphous sediment LM Ql (Urine sed) [facility] Appearance (U) clear [facility] Bacteria LM Ql (Urine sed) [facility] Bilirubin Ql (U) Negative [facility] Casts LM.LPF (Urine sed) [#/Area] [facility] Color (U) yellow [facility] Crystals LM Nom (Urine sed) [facility] Epithelial cells.squamous LM.HPF (Urine sed) [#/Area] [facility] Flow cytometry specialist review [place]is (Unsp spec) [Interp] [facility] Glucose Auto test strip (U) [Mass/Vol] 1000 mg/dL [facility] Interpretation and review of laboratory results Abnormal [facility] Ketones [Mass/Vol] Negative mg/dL [facility] Leukocyte esterase Qn (U) [facility] Leukocyte esterase Test strip Ql (U) Negative [facility] Microscopic observation Gram stain Nom (Bronch spec) [facility] Nitrite Ql (U) Negative [facility] pH (U) 5.5 [pH] 5 - 7 [facility] Protein Ql (U) Negative mg/dL [facility] RBC LM.HPF (Urine sed) [#/Area] [facility] RBC Ql (U) trace [facility] Specific gravity (U) [Rel density] 1.015 1.001 - 1.035 [facility] Transitional cells LM Ql (Urine sed) [facility] Urobilinogen Qn (U) 0.2 [facility] WBC LM.HPF (Urine sed) [#/Area] [facility] [place] CONTINUOUS GLUCOSE MONITO RING ANALYSIS I&Zander 09-02-2024 Jesus Alvarez CNP 09/02/2024 3:13 PM CGM download demonstrates time in target range 58%, high 37%, very high 5%, low/very low 0%. GMI = 7.5%. CGM data is demonstrating some postprandial hyperglycemia. Overnight blood sugars do appear reasonable. Based on CGM download discussion with patient we are going to continue the Lantus, metformin, and Jardiance. We are going to increase Ozempic to 2 mg. We will re-evaluate in 3 months. [facility] Jesus Alvarez CNP - 09/02/2024 2:00 PM EDT CGM download demonstrates time in target range 58%, high 37%, very high 5%, low/very low 0%. GMI = 7.5%. CGM data is demonstrating some postprandial hyperglycemia. Overnight blood sugars do appear reasonable. Based on CGM download discussion with patient we are going to continue the Lantus, metformin, and Jardiance. We are going to increase Ozempic to 2 mg. We will re-evaluate in 3 months. [facility] [place] CONTINUOUS GLUCOSE MONITO RING ANALYSIS I&ROrdered By: Raj Regalado on 09-02-2024 [facility] CBC(NO DIFF)on 08-26-2024 Erythrocyte distribution width (RBC) [Ratio] 14.5 % Normal 11.5-14.5 [facility] Comment on above: Performed By: #### T 42, TSH2 #### Testing performed at [address] [address] Hematocrit (Bld) [Volume fraction] 41.5 % Normal 36.0-48.0 [facility] Comment on above: Performed By: #### T 42, TSH2 #### Testing performed at [address] [address] Hemoglobin (Bld) [Mass/Vol] 13.5 g/dL Normal 12.0-16.0 [facility] Comment on above: Performed By: #### T 42, TSH2 #### Testing performed at [address] [address] MCH (RBC) [Entitic mass] 27.6 pg Normal 26.0-35.0 [facility] Comment on above: Performed By: #### T 42, TSH2 #### Testing performed at [address] [address] MCHC (RBC) [Mass/Vol] 32.5 g/dL Normal 27.0-37.0 [facility] Comment on above: Performed By: #### T 42, TSH2 #### Testing performed at [address] [address] MCV (RBC) [Entitic vol] 84.9 fL Normal 80.0-100.0 [facility] Comment on above: Performed By: #### T 42, TSH2 #### Testing performed at [address] [address] Platelet mean volume (Bld) [Entitic vol] 8.2 fL Normal 7.4-11.0 [facility] Comment on above: Performed By: #### T 42, TSH2 #### Testing performed at [address] [address] Platelets (Bld) [#/Vol] 403 10*3/uL High 130-400 [facility] Comment on above: Performed By: #### T 42, TSH2 #### Testing performed at [address] [address] RBC (Bld) [#/Vol] 4.88 10*6/uL Normal 4.0-5.4 [facility] Comment on above: Performed By: #### T 42, TSH2 #### Testing performed at [address] [address] WBC (Bld) [#/Vol] 11.8 10*3/uL High 3.6-11.0 [facility] Comment on above: Performed By: #### T 42, TSH2 #### Testing performed at [address] [address] CMP FASTINGon 08-26-2024 A:G RATIO 1.[address] [facility] Comment on above: Performed By: #### T 42, TSH2 #### Testing performed at [address] [address] ALBUMIN 4.3 G/dl Normal 3.5-5.0 [facility] Comment on above: Performed By: #### T 42, TSH2 #### Testing performed at [address] [address] ALP [Catalytic activity/Vol] 103 U/L Normal 38-126 [facility] Comment on above: Performed By: #### T 42, TSH2 #### Testing performed at [address] [place] [address] ALT [Catalytic activity/Vol] 20 U/L Normal <35 [facility] Comment on above: Performed By: #### T 42, TSH2 #### Testing performed at [address] [address] AST [Catalytic activity/Vol] 25 U/L Normal 14-36 [facility] Comment on above: Performed By: #### T 42, TSH2 #### Testing performed at [address] [address] Bilirubin [Mass/Vol] 0.5 mg/dL Normal 0.2-1.3 [facility] Comment on above: Performed By: #### T 42, TSH2 #### Testing performed at [address] [address] Calcium [Mass/Vol] 9.6 mg/dL Normal 8.4-10.2 [facility] Comment on above: Performed By: #### T 42, TSH2 #### Testing performed at [address] [address] Chloride [Moles/Vol] 105 mmol/L Normal 98-107 [facility] Comment on above: Result Comment: [place] note: Triglyceride levels of 600mg/dL or higher may positively bias chloride results by approximately 2.1 mmol Performed By: #### T 42, TSH2 #### Testing performed at [address] [address] CO2 [Moles/Vol] 28 mmol/L Normal 22-30 [facility] Comment on above: Performed By: #### T 42, TSH2 #### Testing performed at [address] [address] Creatinine [Mass/Vol] 0.80 mg/dL Normal 0.70-1.20 [facility] Comment on above: Performed By: #### T 42, TSH2 #### Testing performed at [address] [address] EST. GFR, 103 ml/min/1.73sq.m [facility] Comment on above: Performed By: #### T 42, TSH2 #### Testing performed at [address] [place] [address] EST. GFR,Non 85 ml/min/1.73sq.m [facility] Comment on above: Performed By: #### T 42, TSH2 #### Testing performed at [address] [place] [address] GFR Information Average GFR for 30-3 9 years old = 107. Normal [facility] Comment on above: Result Comment: Rn Bone Marrow Transplant ced Kidney disease, GFR = <60. Kidney failure, GFR = <15. The GFR estimate is not adjusted for extreme body surface area or acute process, nor has it been validated for women or ethnic groups other than and . Performed By: #### T 42, TSH2 #### Testing performed at [address] [address] Glucose [Mass/Vol] 117 mg/dL High 70-100 [facility] Comment on above: Result Comment: NORMAL <100 mg/dL PREDIABETES 101-126 mg/dL DIABETES 126 mg/dL or higher Performed By: #### T 42, TSH2 #### Testing performed at [address] [address] Potassium [Moles/Vol] 4.2 mmol/L Normal 3.5-5.1 [facility] Comment on above: Performed By: #### T 42, TSH2 #### Testing performed at [address] [address] Protein [Mass/Vol] 7.4 g/dL Normal 6.3-8.2 [facility] Comment on above: Performed By: #### T 42, TSH2 #### Testing performed at [address] [address] Sodium [Moles/Vol] 138 mmol/L Normal 137-145 [facility] Comment on above: Performed By: #### T 42, TSH2 #### Testing performed at [address] [address] Urea nitrogen [Mass/Vol] 17 mg/dL Normal 7-20 [facility] Comment on above: Performed By: #### T 42, TSH2 #### Testing performed at [address] [address] FREE T4on 08-26-2024 Free T4 [Mass/Vol] 1.20 ng/dL Normal 0.78-2.19 [facility] Comment on above: Performed By: #### T 42, TSH2 #### Testing performed at [address] [address] HEMOGLOBIN A1Con 08-26-2024 Glucose [Mass/Vol] 169 mg/dL Normal [facility] Comment on above: Performed By: #### H A1CT #### Testing performed at [address] [address] HbA1c (Bld) [Mass fraction] 7.5 % High 0-6 [facility] Comment on above: Result Comment: NORMAL <5.7% PREDIABETES 5.7-6.4% DIABETES 6.5% OR HIGHER Performed By: #### H A1CT #### Testing performed at [address] [address] LIPID PROFILEon 08-26-2024 Cholesterol [Mass/Vol] 130 mg/dL Normal 107-217 [facility] Comment on above: Performed By: #### T 42, TSH2 #### Testing performed at [address] [address] Cholesterol in HDL [Mass/Vol] 40 mg/dL Normal 33-75 [facility] Comment on above: Performed By: #### T 42, TSH2 #### Testing performed at [address] [address] Cholesterol in LDL [Mass/Vol] 51 mg/dL Normal <100 [facility] Comment on above: Performed By: #### T 42, TSH2 #### Testing performed at [address] [address] Cholesterol in VLDL [Mass/Vol] 39 mg/dL High 5-25 [facility] Comment on above: Performed By: #### T 42, TSH2 #### Testing performed at [address] [address] Cholesterol.total/Cho lesterol in HDL [Mass ratio] 3.25 {ratio} Normal [facility] Comment on above: Result Comment: RISK TOTAL/HDL RATIO MEN WOMEN 1/2 AVERAGE 3.43 3.27 AVERAGE 4.97 4.44 2X AVERAGE 9.55 7.05 3X AVERAGE 23.99 11.04 Performed By: #### T 42, TSH2 #### Testing performed at [address] [address] Triglyceride [Mass/Vol] 193 mg/dL High 0-150 [facility] Comment on above: Performed By: #### T 42, TSH2 #### Testing performed at [address] [address] MALB/CREAT RATIO,URINEon MALB/CREAT RATIO,URINE 6.4 mg MALB/g CREAT Normal 1.3-30.0 [facility] Comment on above: Performed By: #### A CBC, CMPF, LIPA2 #### Testing performed at [address] [address] MICROALBUMIN,RANDOM URINE 8.6 mg/L Normal 0.0-16.7 [facility] Comment on above: Performed By: #### A CBC, CMPF, LIPA2 #### Testing performed at [address] [address] URINE CREATININE RANDOM 135.1 MG/DL Normal [facility] Comment on above: Result Comment: NO N ORMAL VALUES ESTABLISHED FOR RANDOM SPECIMENS Performed By: #### A CBC, CMPF, LIPA2 #### Testing performed at [address] [address] TSHon 08-26-2024 TSH 3.130 uIU/ML Normal 0.465-4.680 [facility] Comment on above: Performed By: #### T 42, TSH2 #### Testing performed at [address] [address] LG Jt Injection/Arthrocentes is: R subacromial bursaon 08-22-2024 Antwon Martin CNP 08/22/2024 3:26 PM LG Jt Injection/Arthrocentes is: R subacromial bursa Performed by: Antwon Martin CNP Authorized by: Antwon Martin CNP CPT 35920 - Large Joint Arthrocentesis: Consent given by: Patient Time out: Immediately prior to the procedure a time out was called Physician or proceduralist has discussed critical or nonroutine steps, procedure duration and anticipated blood loss: Yes Supporting Documentation: Indications: Pain Procedure Details: Location: Shoulder Site: R subacromial bursa Prep: patient was prepped and draped in usual sterile fashion Needle size: 22 G Approach: Posterior Medications: 1 mL dexAMETHasone 4 mg/mL, 1 mL triamcinolone acetonide 40 mg/mL Anesthetic used: Bupivacaine 0.25% Anesthetic amount (mL): 3 Patient tolerance: Patient tolerated the procedure well with no immediate complications [facility] Cardiac echo study Procedure stress methodon 08-04-2024 APPROVED REPORT EXAM: Dobutamine Stress Echo Medical History Pretest Chest Pain Characteristics: No chest pain Echo Enhancing Agent Indication: Endocardial border delineation Agent(s) / Amount(s) Used: Definity 5 cc Conclusion A maximal Dobutamine stress echocardiogram with no symptomatic, ECG, nor echocardiographic evidence of coronary artery ischemia. Normal L V SF with an EF of 60-65%. No segmental wall motion abnormalities. A hypertensive response to stress. Persistent sinus tachycardia in recovery. Occasional VPC's. Other Information Study Quality: Technically Difficult Echo Procedure The patient underwent a Pharmacological Stress Test using Dobutamine. Blood pressure, heart rate, and EKG were monitored. An Echocardiogram was performed by biological science technician in four stages in quad fashion. At peak stress, four selected images were obtained and placed side by side with resting images for comparison. Stress Test Details Test: Pharmacologic echocardiographic stress testing performed using Dobutamine. Reason for pharmacologic stress test: physical limitation. HR Resting HR: 86 bpm Max Heart Rate (APMHR): 181.303176 bpm Max HR Achieved: 155 bpm Target HR (85% APMHR): 153.236847 bpm % of APMHR: 85.64 Recovery HR: 106 bpm HR response to stress: a blunted HR response to dobutamine and atropine BP Resting BP: 149/91 mmHg Max BP: 196/112 mmHg BP response to stress: a hypertensive response to stress. ECG Resting ECG: sinus rhythm, low volts, normal axis and intervals, no STT changes ST Change: none Arrhythmia: persistent sinus tachycardia in recovery. occasional VPC's Clinical Reason for Termination: Reached Target HR Overall Exercise Capacity for Age: Not assessed on pharmacologic stress Scale: Sedentary Angina Score: None CARDIOLOGY Guillermo Khalil II, MD - 08/04/2024 APPROVED REPORT EXAM: Dobutamine Stress Echo Medical History Pretest Chest Pain Characteristics: No chest pain Echo Enhancing Agent Indication: Endocardial border delineation Agent(s) / Amount(s) Used: Definity 5 cc Conclusion A maximal Dobutamine stress echocardiogram with no symptomatic, ECG, nor echocardiographic evidence of coronary artery ischemia. Normal L V SF with an EF of 60-65%. No segmental wall motion abnormalities. A hypertensive response to stress. Persistent sinus tachycardia in recovery. Occasional VPC's. Other Information Study Quality: Technically Difficult Echo Procedure The patient underwent a Pharmacological Stress Test using Dobutamine. Blood pressure, heart rate, and EKG were monitored. An Echocardiogram was performed by biological science technician in four stages in quad fashion. At peak stress, four selected images were obtained and placed side by side with resting images for comparison. Stress Test Details Test: Pharmacologic echocardiographic stress testing performed using Dobutamine. Reason for pharmacologic stress test: physical limitation. HR Resting HR: 86 bpmMax Heart Rate (APMHR): 181.726944 bpm Max HR Achieved: 155 bpmTarget HR (85% APMHR): 153.544913 bpm % of APMHR: 85.64 Recovery HR: 106 bpm HR response to stress: a blunted HR response to dobutamine and atropine BP Resting BP: 149/91 mmHg Max BP: 196/112 mmHg BP response to stress: a hypertensive response to stress. ECG Resting ECG: sinus rhythm, low volts, normal axis and intervals, no STT changes ST Change: none Arrhythmia: persistent sinus tachycardia in recovery. occasional VPC's Clinical Reason for Termination: Reached Target HR Overall Exercise Capacity for Age: Not assessed on pharmacologic stress Scale: Sedentary Angina Score: None [facility] Radiology Study observation (narrative) [facility] POCT RAPID STREP AOrdered By : Betsy Hinojosa on 07-21-2024 Interpretation and review of laboratory results Normal [facility] S. pyogenes Ag Ql (Throat) Negative (+/-) [facility] BASIC METABOLIC PANELon Anion gap [Moles/Vol] 13 mmol/L MMOL/L [facility] Calcium [Mass/Vol] 9.2 mg/dL [facility] Chloride [Moles/Vol] 102 mmol/L [facility] Comment on above: Please note: Triglyc eride levels of 600mg/dL or higher may positively bias chloride results by approximately 2.1 mmol CO2 [Moles/Vol] 24 mmol/L [facility] Creatinine [Mass/Vol] 0.90 mg/dL [facility] GFR COMMENT Average GFR for 30-3 9 years old = 107. [facility] Comment on above: Chronic Kidney disea se, GFR = <60. Kidney failure, GFR = <15. The GFR estimate is not adjusted for extreme body surface area or acute process, nor has it been validated for women or ethnic groups other than and . GFR/1.73 sq M.predicted among blacks MDRD (S/P/Bld) [Vol rate/Area] 90 mL/min/{1.73_m2} ml/min/1.73s q.m [facility] GFR/1.73 sq M.predicted among non-blacks MDRD (S/P/Bld) [Vol rate/Area] 74 mL/min/{1.73_m2} ml/min/1.73s q.m [facility] Glucose post fast [Mass/Vol] 174 mg/dL High [facility] Comment on above: NORMAL <100 mg/dL PREDIABETES 101-126 mg/dL DIABETES 126 mg/dL or higher Potassium [Moles/Vol] 4.1 mmol/L [facility] Sodium [Moles/Vol] 139 mmol/L [facility] Urea nitrogen [Mass/Vol] 17 mg/dL [facility] BMP FASTINGon 07-08-2024 Anion gap [Moles/Vol] 13 mmol/L Normal [facility] Comment on above: Performed By: #### T 42, TSH2 #### Testing performed at [address] [address] Calcium [Mass/Vol] 9.2 mg/dL Normal 8.4-10.2 [facility] Comment on above: Performed By: #### T 42, TSH2 #### Testing performed at [address] [address] Chloride [Moles/Vol] 102 mmol/L Normal 98-107 [facility] Comment on above: Result Comment: Plea se note: Triglyceride levels of 600mg/dL or higher may positively bias chloride results by approximately 2.1 mmol Performed By: #### T 42, TSH2 #### Testing performed at [address] [address] CO2 [Moles/Vol] 24 mmol/L Normal 22-30 [facility] Comment on above: Performed By: #### T 42, TSH2 #### Testing performed at [address] [address] Creatinine [Mass/Vol] 0.90 mg/dL Normal 0.70-1.20 [facility] Comment on above: Performed By: #### T 42, TSH2 #### Testing performed at [address] [address] EST. GFR, 90 ml/min/1.73sq.m [facility] Comment on above: Performed By: #### T 42, TSH2 #### Testing performed at [address] [address] EST. GFR,Non 74 ml/min/1.73sq.m [facility] Comment on above: Performed By: #### T 42, TSH2 #### Testing performed at [address] [address] GFR Information Average GFR for 30-3 9 years old = 107. Normal [facility] Comment on above: Result Comment: Rn Bone Marrow Transplant ced Kidney disease, GFR = <60. Kidney failure, GFR = <15. The GFR estimate is not adjusted for extreme body surface area or acute process, nor has it been validated for women or ethnic groups other than and . Performed By: #### T 42, TSH2 #### Testing performed at [address] [address] Glucose [Mass/Vol] 174 mg/dL High 70-100 [facility] Comment on above: Result Comment: NORMAL <100 mg/dL PREDIABETES 101-126 mg/dL DIABETES 126 mg/dL or higher Performed By: #### T 42, TSH2 #### Testing performed at [address] [address] Potassium [Moles/Vol] 4.1 mmol/L Normal 3.5-5.1 [facility] Comment on above: Performed By: #### T 42, TSH2 #### Testing performed at [address] [address] Sodium [Moles/Vol] 139 mmol/L Normal 137-145 [facility] Comment on above: Performed By: #### T 42, TSH2 #### Testing performed at [address] [address] Urea nitrogen [Mass/Vol] 17 mg/dL Normal 7-20 [facility] Comment on above: Performed By: #### T 42, TSH2 #### Testing performed at [address] [address] C REACTIVE PROTEINon 024 CRP [Mass/Vol] 19.3 mg/L High 0 - 10 MG/L [facility] CRP [Mass/Vol] 19.3 mg/L High 0-10 [facility] Comment on above: Performed By: #### T 42, TSH2 #### Testing performed at [address] [address] CBCon 07-08-2024 ABSOLUTE BAS 0.0 10*3/uL Normal 0.0-0.2 [facility] Comment on above: Performed By: #### T 42, TSH2 #### Testing performed at [address] [address] ABSOLUTE EOS 0.3 10*3/uL Normal 0.0-0.7 [facility] Comment on above: Performed By: #### T 42, TSH2 #### Testing performed at [address] [address] ABSOLUTE NEUTROPHIL COUNT 7.4 10*3/uL High 1.4-6.5 [facility] Comment on above: Performed By: #### T 42, TSH2 #### Testing performed at [address] [address] Basophils/100 WBC (Bld) 0.4 % Normal 0.0-2.0 [facility] Comment on above: Performed By: #### T 42, TSH2 #### Testing performed at [address] [address] DTYPE AUTO DIFF Normal [facility] Comment on above: Performed By: #### T 42, TSH2 #### Testing performed at [address] [address] Eosinophils/100 WBC (Bld) 3.2 % Normal 0.0-11.0 [facility] Comment on above: Performed By: #### T 42, TSH2 #### Testing performed at [address] [address] Lymphocytes (Bld) [#/Vol] 1.8 10*3/uL Normal 1.2-3.4 [facility] Comment on above: Performed By: #### T 42, TSH2 #### Testing performed at [address] [address] Lymphocytes/100 WBC (Bld) 17.4 % Low 20.0-55.0 [facility] Comment on above: Performed By: #### T 42, TSH2 #### Testing performed at [address] [address] Monocytes (Bld) [#/Vol] 0.9 10*3/uL High 0.0-0.7 [facility] Comment on above: Performed By: #### T 42, TSH2 #### Testing performed at [address] [address] Monocytes/100 WBC (Bld) 8.8 % Normal 0.0-10.0 [facility] Comment on above: Performed By: #### T 42, TSH2 #### Testing performed at [address] [address] Neutrophils/100 WBC (Bld) 70.2 % Normal 37.0-75.0 [facility] Comment on above: Performed By: #### T 42, TSH2 #### Testing performed at [address] [address] Erythrocyte distribution width (RBC) [Ratio] 13.9 % Normal 11.5-14.5 [facility] Comment on above: Performed By: #### T 42, TSH2 #### Testing performed at [address] [address] Hematocrit (Bld) [Volume fraction] 42.2 % Normal 36.0-48.0 [facility] Comment on above: Performed By: #### T 42, TSH2 #### Testing performed at [address] [address] Hemoglobin (Bld) [Mass/Vol] 13.8 g/dL Normal 12.0-16.0 [facility] Comment on above: Performed By: #### T 42, TSH2 #### Testing performed at [address] [address] MCH (RBC) [Entitic mass] 28.6 pg Normal 26.0-35.0 [facility] Comment on above: Performed By: #### T 42, TSH2 #### Testing performed at [address] [address] MCHC (RBC) [Mass/Vol] 32.8 g/dL Normal 27.0-37.0 [facility] Comment on above: Performed By: #### T 42, TSH2 #### Testing performed at [address] [address] MCV (RBC) [Entitic vol] 87.3 fL Normal 80.0-100.0 [facility] Comment on above: Performed By: #### T 42, TSH2 #### Testing performed at [address] [address] Platelet mean volume (Bld) [Entitic vol] 8.0 fL Normal 7.4-11.0 [facility] Comment on above: Performed By: #### T 42, TSH2 #### Testing performed at [address] [place] [address] Platelets (Bld) [#/Vol] 417 10*3/uL High 130-400 [facility] Comment on above: Performed By: #### T 42, TSH2 #### Testing performed at [address] [place] [address] RBC (Bld) [#/Vol] 4.83 10*6/uL Normal 4.0-5.4 [facility] Comment on above: Performed By: #### T 42, TSH2 #### Testing performed at [address] [address] WBC (Bld) [#/Vol] 10.5 10*3/uL Normal 3.6-11.0 [facility] Comment on above: Performed By: #### T 42, TSH2 #### Testing performed at [address] [place] [address] CBC, EDIF, PLATELETon 2023 ABSOLUTE BASOPHIL COUNT 0.0 10*3/uL 0.0 - 0.2 10*3/uL [facility] Basophils/100 WBC (Bld) 0.4 % 0.0 - 2.0 % [facility] Differential cell count method Nom (Bld) AUTO DIFF % [facility] Eosinophils (Bld) [#/Vol] 0.3 10*3/uL 0.0 - 0.7 10*3/uL [facility] Eosinophils/100 WBC (Bld) 3.2 % 0.0 - 11.0 % [facility] Erythrocyte distribution width (RBC) [Ratio] 13.9 % 11.5 - 14.5 % [facility] Hematocrit (Bld) [Volume fraction] 42.2 % 36.0 - 48.0 % [facility] Hemoglobin (Bld) [Mass/Vol] 13.8 g/dL [facility] Interpretation and review of laboratory results Abnormal [facility] Lymphocytes (Bld) [#/Vol] 1.8 10*3/uL 1.2 - 3.4 10*3/uL [facility] Lymphocytes/100 WBC (Bld) 17.4 % Low 20.0 - 55.0 % [facility] MCH (RBC) [Entitic mass] 28.6 pg 26.0 - 35.0 PG [facility] MCHC (RBC) [Mass/Vol] 32.8 g/dL [facility] MCV (RBC) [Entitic vol] 87.3 fL [facility] Monocytes (Bld) [#/Vol] 0.9 10*3/uL High 0.0 - 0.7 10*3/uL [facility] Monocytes/100 WBC (Bld) 8.8 % 0.0 - 10.0 % [facility] Neutrophils (Bld) [#/Vol] 7.4 10*3/uL High 1.4 - 6.5 10*3/uL [facility] Neutrophils/100 WBC (Bld) 70.2 % 37.0 - 75.0 % [facility] Platelet mean volume (Bld) [Entitic vol] 8.0 fL [facility] Platelets (Bld) [#/Vol] 417 10*3/uL High 130 - 400 10*3/uL [facility] RBC (Bld) [#/Vol] 4.83 10*6/uL 4.0 - 5.4 10*6/uL [facility] WBC (Bld) [#/Vol] 10.5 10*3/uL 3.6 - 11.0 10*3/uL [facility] D DIMERon 07-08-2024 D DIMER 0.30 ??g/ml Normal <0.50 [facility] Comment on above: Result Comment: If r esult is greater than the cutoff value of 0.50 ??g/ml then the potential for PE or DVT exists. Other conditions exist which may cause a falsely elevated level. Please correlate clinically, including radiological findings and other clinical parameters. Performed By: #### T 42, TSH2 #### Testing performed at [address] [address] D-DIMER,QUANTITATIVEon 07-08 Fibrin D-dimer FEU (PPP) [Mass/Vol] 0.30 NINF [facility] Comment on above: If result is greater than the cutoff value of 0.50 g/ml then the potential for PE or DVT exists. Other conditions exist which may cause a falsely elevated level. Please correlate clinically, including radiological findings and other clinical parameters. [facility] ESRon 07-08-2024 ESR (Bld) [Velocity] 35 mm/h High 0-15 [facility] Comment on above: Performed By: #### T 42, TSH2 #### Testing performed at [address] [address] LIPASEon 07-08-2024 Lipase [Catalytic activity/Vol] 146 U/L 23 - 300 U/L [facility] LIPASE,SERUMon 07-08-2024 LIPASE,SERUM 146 U/L Normal 23-300 [facility] Comment on above: Performed By: #### T 42, TSH2 #### Testing performed at [address] [address] MAGNESIUMon 07-08-2024 Magnesium [Mass/Vol] 1.8 mg/dL [facility] Magnesium [Mass/Vol] 1.8 mg/dL Normal 1.6-2.3 [facility] Comment on above: Performed By: #### T 42, TSH2 #### Testing performed at [address] [address] No Panel Informationon 07-08 Interpretation and review of laboratory results Abnormal [facility] SEDIMENTATION RATE, AUTOMATE Don 07-08-2024 ESR (Bld) [Velocity] 35 mm/h High [facility] Interpretation and review of laboratory results Abnormal [facility] TROPONIN I, HIGH SENSITIVITY on 07-08-2024 TROPONIN I, HIGH SENSITIVITY <2 0 - 12 pg/mL [facility] Comment on above: Indeterminant: >12 to 100 pg/mL female >20 to 100 pg/mL male Indicative of myocardial injury. Serial sampling is recommended, a change of greater than or equal to 20 pg/mL is indicative of acute coronary syndrome. [facility] TROPONIN I, HIGH SENSITIVITY <2 Normal 0-12 [facility] Comment on above: Result Comment: Indeterminant: >12 to 100 pg/mL female >20 to 100 pg/mL male Indicative of myocardial injury. Serial sampling is recommended, a change of greater than or equal to 20 pg/mL is indicative of acute coronary syndrome. Performed By: #### T ROHS #### Testing performed at [place] [id number] XR CHEST PA AND LATERAL 2 EWSon 07-08-2024 XR CHEST PA AND LATERAL 2 VIEWS EXAM: XR CHEST PA AND LATERAL 2 VIEWS HISTORY: chest pain COMPARISON: Correlation with the report from 12/20/2019 TECHNIQUE: Upright PA and lateral chest x-ray FINDINGS: The heart is not enlarged and the vasculature is not distended. No acute infiltrate, effusion or pneumothorax is identified. The osseous structures are grossly intact. IMPRESSION: No acute infiltrate or evidence of cardiac decompensation. Similar findings were described in the report from the study from 12/20/2019. Normal [facility] XR Chest PA and Lateralon IMPRESSION: No acute infiltrate or evidence of cardiac decompensation. Similar findings were described in the report from the study from 12/20/2019. RADIOLOGY EXAM: XR CHEST PA AN D LATERAL 2 VIEWS HISTORY: chest pain COMPARISON: Correlation with the report from 12/20/2019 TECHNIQUE: Upright PA and lateral chest x-ray FINDINGS: The heart is not enlarged and the vasculature is not distended. No acute infiltrate, effusion or pneumothorax is identified. The osseous structures are grossly intact. RADIOLOGY Jose G Mallory MD - 07/08/2024 EXAM: XR CHEST PA AND LATERAL 2 VIEWS HISTORY: chest pain COMPARISON: Correlation with the report from 12/20/2019 TECHNIQUE: Upright PA and lateral chest x-ray FINDINGS: The heart is not enlarged and the vasculature is not distended. No acute infiltrate, effusion or pneumothorax is identified. The osseous structures are grossly intact. IMPRESSION IMPRESSION: No acute infiltrate or evidence of cardiac decompensation. Similar findings were described in the report from the study from 12/20/2019. [facility] Radiology Study observation (narrative) [facility] XR Chest PA and LateralOrder ed By: Jose G Mallory on 07-08-2024 [facility] Work Phone: COMPREHENSIVE METABOLIC PANE Milo 05-17-2024 Albumin [Mass/Vol] 5.1 G/dl High 3.5 - 5.0 G/dl [facility] Albumin/Globulin [Mass ratio] 1.6 {ratio} RATIO [facility] ALP [Catalytic activity/Vol] 101 U/L [facility] ALT [Catalytic activity/Vol] 41 U/L High NINF [facility] AST [Catalytic activity/Vol] 52 U/L High [facility] Bilirubin [Mass/Vol] 0.4 mg/dL [facility] Calcium [Mass/Vol] 10.2 mg/dL [facility] Chloride [Moles/Vol] 102 mmol/L [facility] Comment on above: Please note: Triglyc eride levels of 600mg/dL or higher may positively bias chloride results by approximately 2.1 mmol CO2 [Moles/Vol] 29 mmol/L [facility] Creatinine [Mass/Vol] 0.90 mg/dL [facility] GFR COMMENT Average GFR for 30-3 9 years old = 107. [facility] Comment on above: Chronic Kidney disea se, GFR = <60. Kidney failure, GFR = <15. The GFR estimate is not adjusted for extreme body surface area or acute process, nor has it been validated for women or ethnic groups other than and . GFR/1.73 sq M.predicted among blacks MDRD (S/P/Bld) [Vol rate/Area] 90 mL/min/{1.73_m2} ml/min/1.73s q.m [facility] GFR/1.73 sq M.predicted among non-blacks MDRD (S/P/Bld) [Vol rate/Area] 74 mL/min/{1.73_m2} ml/min/1.73s q.m [facility] Glucose post fast [Mass/Vol] 132 mg/dL High [facility] Comment on above: NORMAL <100 mg/dL PREDIABETES 101-126 mg/dL DIABETES 126 mg/dL or higher Interpretation and review of laboratory results Abnormal [facility] Potassium [Moles/Vol] 4.3 mmol/L [facility] Protein [Mass/Vol] 8.3 g/dL High [facility] Sodium [Moles/Vol] 141 mmol/L [facility] Urea nitrogen [Mass/Vol] 24 mg/dL High [facility] POCT URINALYSIS DIPSTICK AUT OMATED W/O SCOPon 05-16-2024 Amorphous sediment LM Ql (Urine sed) [facility] Appearance (U) clear [facility] Bacteria LM Ql (Urine sed) [facility] Bilirubin Ql (U) Negative [facility] Casts LM.LPF (Urine sed) [#/Area] [facility] Color (U) yellow [facility] Crystals LM Nom (Urine sed) [facility] Epithelial cells.squamous LM.HPF (Urine sed) [#/Area] [facility] Flow cytometry specialist review Otis (Unsp spec) [Interp] [facility] Glucose Auto test strip (U) [Mass/Vol] mg/dL mg/dL [facility] Ketones [Mass/Vol] Negative mg/dL [facility] Leukocyte esterase Qn (U) [facility] Leukocyte esterase Test strip Ql (U) Negative [facility] Nitrite Ql (U) Negative [facility] pH (U) 7 [pH] 5 - 7 [facility] Protein Ql (U) Negative mg/dL [facility] RBC LM.HPF (Urine sed) [#/Area] [facility] RBC Ql (U) [facility] Specific gravity (U) [Rel density] 1.010 1.001 - 1.035 [facility] Transitional cells LM Ql (Urine sed) [facility] Urobilinogen Qn (U) 0.2 [facility] WBC LM.HPF (Urine sed) [#/Area] [facility] LG Jt Injection/Arthrocentes is: R kneeon 05-10-2024 Antwon Martin CNP 05/10/2024 3:11 PM LG Jt Injection/Arthrocentes is: R knee Performed by: Antwon Martin CNP Authorized by: Antwon Martin CNP CPT 41556 - Large Joint Arthrocentesis: Consent given by: Patient Time out: Immediately prior to the procedure a time out was called Physician or proceduralist has discussed critical or nonroutine steps, procedure duration and anticipated blood loss: Yes Supporting Documentation: Indications: Pain Procedure Details: Location: Knee Site: R knee Prep: patient was prepped and draped in usual sterile fashion Needle size: 22 G Approach: Anterolateral Medications: 1 mL dexAMETHasone 4 mg/mL, 1 mL triamcinolone acetonide 40 mg/mL Anesthetic used: Lidocaine 1% and Bupivacaine 0.25% Anesthetic amount (mL): 3 Patient tolerance: Patient tolerated the procedure well with no immediate complications [facility] LG Jt Injection/Arthrocentes is: R subacromial bursaon 05-10-2024 Antwon Martin CNP 05/10/2024 3:11 PM LG Jt Injection/Arthrocentes is: R subacromial bursa Performed by: Antwon Martin CNP Authorized by: Antwon Martin CNP CPT 31821 - Large Joint Arthrocentesis: Consent given by: Patient Time out: Immediately prior to the procedure a time out was called Physician or proceduralist has discussed critical or nonroutine steps, procedure duration and anticipated blood loss: Yes Supporting Documentation: Indications: Pain Procedure Details: Location: Shoulder Site: R subacromial bursa Prep: patient was prepped and draped in usual sterile fashion Needle size: 22 G Approach: Posterior Medications: 1 mL dexAMETHasone 4 mg/mL, 1 mL triamcinolone acetonide 40 mg/mL Anesthetic used: Bupivacaine 0.25% Anesthetic amount (mL): 3 Patient tolerance: Patient tolerated the procedure well with no immediate complications [facility] CONTINUOUS GLUCOSE MONITO RING ANALYSIS I&Zander 04-29-2024 Jesus Alvarez CNP 04/29/2024 3:57 PM CGM download demonstrates time in target range 40%, high 52%, very high 8%, low/very low 0%. GMI = 7.9%. CGM data is demonstrating postprandial hypoglycemia after most meals. She does have periods where her blood sugar is in target range. Overnight blood sugars still slightly elevated. Based on CGM data and discussion with patient we are going to increase her Lantus, continue metformin, continue Jardiance, and increase the Ozempic. We will re-evaluate in 3 months. [facility] NM Liver and Biliary ducts a nd Gallbladder Views W sincalide and W radionuclide Bola 04-07-2024 IMPRESSION: Normal hepatic biliary scintigraphy and gallbladder ejection fraction. RADIOLOGY HIDA SCAN WITH GALLBLADDER EJECTION FRACTION HISTORY: Abdominal Pain. COMPARISON: None. METHOD: Following IV injection of 3.7 mCi of [id number] c, anterior imaging of the abdomen was acquired for 60 minutes. After the gallbladder was visualized the patient was given Boost and the gallbladder ejection fraction was calculated. FINDINGS: There is satisfactory uptake of radiopharmaceutical by the liver. The gallbladder, bile duct, and bowel are seen in the expected period of time and sequence. The gallbladder ejection fraction is normal at 73%. RADIOLOGY Luisito Matthews MD - 04/07/2024 HIDA SCAN WITH GALLBLADDER EJECTION FRACTION HISTORY: Abdominal Pain. COMPARISON: None. METHOD: Following IV injection of 3.7 mCi of [id number] c, anterior imaging of the abdomen was acquired for 60 minutes. After the gallbladder was visualized the patient was given Boost and the gallbladder ejection fraction was calculated. FINDINGS: There is satisfactory uptake of radiopharmaceutical by the liver. The gallbladder, bile duct, and bowel are seen in the expected period of time and sequence. The gallbladder ejection fraction is normal at 73%. IMPRESSION IMPRESSION: Normal hepatic biliary scintigraphy and gallbladder ejection fraction. [facility] Radiology Study observation (narrative) [facility] NM Liver and Biliary ducts a nd Gallbladder Views W sincalide and W radionuclide IVOrdered By: Luisito Matthews on 04-07-2024 [facility] Work Phone: CYSTOSCOPYon 03-28-2024 Robson Parnell MD 03/28/2024 9:57 AM CYSTOSCOPY Date/Time: 03/28/2024 10:00 AM Performed by: Robson Parnell MD Authorized by: Robson Parnell MD The attending physician was present for the entire procedure. Pre-Procedure: Indications: kidney stone(s) Detailed information of all possible complications and side effects were discussed with the patient, these include but not only; UTI, sepsis, hematuria, incontinence, urethral injury and cardiovascular complications. Informed consent was obtained. Does this procedure require a Savage Protocol? Yes. Savage Protocol is required. The patient was given one dose of antibiotics. Urine was not collected. Procedure: Procedure performed: cystoscopy and stent removal The patient was placed supine with all pressure points well padded. Patient was prepped and draped in the usual sterile fashion with chlorhexidine. lidocaine 2% topical gel was inserted into urethra for local anesthesia. The flexible cystoscope was lubricated and placed into the urethral tract. A 360 survey of the bladder was performed. The cystoscope was removed following any additional procedures documented below. Findings: The urinary meatus appeared normal. No tumors observed. No stones found. The urethra was inspected. No foreign body(s) present in urethra. No urethral diverticulum observed. No urethral stricture found. Additional procedure details: Stent removal location: bilateral ureters The existing ureteral stent(s) were identified. The stent(s) were grabbed with a flexible grasper and pulled to the meatus The stent was removed. Post Procedure: Patient tolerated procedure with no immediate complications Post-procedure antibiotics were given (see MAR for details) EBL: minimal Provided education regarding water intake of at least 2 liters per day. Follow up in 6 weeks with renal ultrasound. [facility] Radiology Study observation (narrative) [facility] GLUCOSE (POC DEVICE)on 03-17 GLUCOSE, POINT OF CARE 156 High [facility] Interpretation and review of laboratory results Abnormal [employer] [id number] [facility] HCG ( test) Ql (U)o n 03-17-2024 HCG.beta subunit [Moles/Vol] negitive [facility] Comment on above: Lot # [id number] EXT date 2024-07-01 internal control OK [facility] CT Abdomen and Pelvis WO con traston 02-24-2024 IMPRESSION: Nonobstructing 2 mm stone in the proximal third of the left ureter. No hydronephrosis.. Bilateral nephrolithiasis. RADIOLOGY CT ABDOMEN/PELVIS WITHOUT IV CONTRAST. INDICATION: Kidney stone. Gross hematuria. COMPARISON: 05/31/2021 TECHNIQUE: Contiguous axial images were obtained from the lung bases to the pelvic floor without intravenous or oral contrast. Coronal and sagittal reformations are provided. FINDINGS: LOWER LUNGS: Clear. LIVER/BILIARY TREE: No discrete lesion. No intrahepatic ductal dilatation. Hepatomegaly. The liver measures 25 cm in craniocaudal dimension. GALLBLADDER: No significant gallbladder wall thickening. No radiopaque stone. CBD: Normal CBD. SPLEEN: Normal in size. PANCREAS: No appreciable peripancreatic fluid. No pancreatic ductal dilatation. No discrete lesion. ADRENALS: Normal. KIDNEYS: No hydronephrosis. There is a 2 mm nonobstructing stone in the proximal third of the left ureter. There are nonobstructing bilateral renal stones. STOMACH AND BOWEL: Stomach is unremarkable. No dilated bowel loops. No bowel wall thickening. APPENDIX: Normal appendix. PERITONEAL CAVITY: No fluid. No fat stranding. ABDOMINAL WALL: No subcutaneous stranding. No subcutaneous fluid collection. LYMPH NODES: No mesenteric or retroperitoneal lymphadenopathy by CT criteria. ABDOMINAL AORTA: No aneurysm. PELVIS: No acute abnormality. MUSCULOSKELETAL: No acute osseous abnormality. RADIOLOGY Oleg Lopez MD - 02/24/2024 CT ABDOMEN/PELVIS WITHOUT IV CONTRAST. INDICATION: Kidney stone. Gross hematuria. COMPARISON: 05/31/2021 TECHNIQUE: Contiguous axial images were obtained from the lung bases to the pelvic floor without intravenous or oral contrast. Coronal and sagittal reformations are provided. FINDINGS: LOWER LUNGS: Clear. LIVER/BILIARY TREE: No discrete lesion. No intrahepatic ductal dilatation. Hepatomegaly. The liver measures 25 cm in craniocaudal dimension. GALLBLADDER: No significant gallbladder wall thickening. No radiopaque stone. CBD: Normal CBD. SPLEEN: Normal in size. PANCREAS: No appreciable peripancreatic fluid. No pancreatic ductal dilatation. No discrete lesion. ADRENALS: Normal. KIDNEYS: No hydronephrosis. There is a 2 mm nonobstructing stone in the proximal third of the left ureter. There are nonobstructing bilateral renal stones. STOMACH AND BOWEL: Stomach is unremarkable. No dilated bowel loops. No bowel wall thickening. APPENDIX: Normal appendix. PERITONEAL CAVITY: No fluid. No fat stranding. ABDOMINAL WALL: No subcutaneous stranding. No subcutaneous fluid collection. LYMPH NODES: No mesenteric or retroperitoneal lymphadenopathy by CT criteria. ABDOMINAL AORTA: No aneurysm. PELVIS: No acute abnormality. MUSCULOSKELETAL: No acute osseous abnormality. IMPRESSION IMPRESSION: Nonobstructing 2 mm stone in the proximal third of the left ureter. No hydronephrosis.. Bilateral nephrolithiasis. [facility] Radiology Study observation (narrative) [facility] CT Abdomen and Pelvis WO con trastOrdered By: Oleg Lopez on 02-24-2024 [facility] Work Phone: POCT URINALYSIS DIPSTICK NON AUTOMATEDon 02-24-2024 Amorphous sediment LM Ql (Urine sed) [facility] Appearance (U) clear [facility] Bacteria LM Ql (Urine sed) [facility] Bilirubin Ql (U) Negative [facility] Casts LM.LPF (Urine sed) [#/Area] [facility] Color (U) yellow [facility] Crystals LM Nom (Urine sed) [facility] Epithelial cells.squamous LM.HPF (Urine sed) [#/Area] [facility] Flow cytometry specialist review Otis (Unsp spec) [Interp] [facility] Glucose Auto test strip (U) [Mass/Vol] 250 mg/dL [facility] Ketones [Mass/Vol] Negative mg/dL [facility] Leukocyte esterase Qn (U) [facility] Leukocyte esterase Test strip Ql (U) Negative [facility] Nitrite Ql (U) Negative [facility] pH (U) 5.5 [pH] 5 - 7 [facility] Protein Ql (U) Negative mg/dL [facility] RBC LM.HPF (Urine sed) [#/Area] [facility] RBC Ql (U) moderate [facility] Specific gravity (U) [Rel density] 1.015 1.001 - 1.035 [facility] Transitional cells LM Ql (Urine sed) [facility] Urobilinogen Qn (U) 0.2 [facility] WBC LM.HPF (Urine sed) [#/Area] [facility] US Abdomen RUQon 02-07-2024 IMPRESSION: Echogenic liver consistent with hepatocellular disease such as fatty infiltration. Right renal 7 mm stone. RADIOLOGY ULTRASOUND RIGHT UPP ER QUADRANT HISTORY: Right upper quadrant pain. COMPARISON: None. FINDINGS: The liver is diffusely echogenic which limits the sensitivity for intrahepatic masses. There is no intrahepatic biliary ductal dilatation. The gallbladder appears unremarkable with no evidence for gallbladder wall thickening or pericholecystic fluid. The common bile duct measures 5 mm. Negative Montoya's sign. The visualized portions of the pancreas appear unremarkable. There is a right renal 7 mm stone. RADIOLOGY Luisito Matthews MD - 02/07/2024 ULTRASOUND RIGHT UPPER QUADRANT HISTORY: Right upper quadrant pain. COMPARISON: None. FINDINGS: The liver is diffusely echogenic which limits the sensitivity for intrahepatic masses. There is no intrahepatic biliary ductal dilatation. The gallbladder appears unremarkable with no evidence for gallbladder wall thickening or pericholecystic fluid. The common bile duct measures 5 mm. Negative Montoya's sign. The visualized portions of the pancreas appear unremarkable. There is a right renal 7 mm stone. IMPRESSION IMPRESSION: Echogenic liver consistent with hepatocellular disease such as fatty infiltration. Right renal 7 mm stone. [facility] Radiology Study observation (narrative) [facility] US Abdomen RUQOrdered By: Fr regina Matthews on 02-07-2024 [facility] Work Phone: LG Jt Injection/Arthrocentes is: R subacromial bursaon 02-03-2024 Antwon Martin CNP 02/03/2024 3:09 PM LG Jt Injection/Arthrocentes is: R subacromial bursa Performed by: Antwon Maritn CNP Authorized by: Antwon Martin CNP CPT 31110 - Large Joint Arthrocentesis: Consent given by: Patient Time out: Immediately prior to the procedure a time out was called Physician or proceduralist has discussed critical or nonroutine steps, procedure duration and anticipated blood loss: Yes Supporting Documentation: Indications: Pain Procedure Details: Location: Shoulder Site: R subacromial bursa Prep: patient was prepped and draped in usual sterile fashion Needle size: 22 G Approach: Posterior Medications: 1 mL dexAMETHasone 4 mg/mL, 1 mL triamcinolone acetonide 40 mg/mL Anesthetic used: Bupivacaine 0.25% Anesthetic amount (mL): 3 Patient tolerance: Patient tolerated the procedure well with no immediate complications [facility] POCT URINALYSIS DIPSTICK AUT OMATED W/O SCOPon 01-29-2024 Amorphous sediment LM Ql (Urine sed) [facility] Appearance (U) clear [facility] Bacteria LM Ql (Urine sed) [facility] Bilirubin Ql (U) Negative [facility] Casts LM.LPF (Urine sed) [#/Area] [facility] Color (U) yellow [facility] Crystals LM Nom (Urine sed) [facility] Epithelial cells.squamous LM.HPF (Urine sed) [#/Area] [facility] Flow cytometry specialist review Otis (Unsp spec) [Interp] [facility] Glucose Auto test strip (U) [Mass/Vol] Negative mg/dL [facility] Ketones [Mass/Vol] Negative mg/dL [facility] Leukocyte esterase Qn (U) [facility] Leukocyte esterase Test strip Ql (U) small [facility] Nitrite Ql (U) Negative [facility] pH (U) 6.5 [pH] 5 - 7 [facility] Protein Ql (U) Negative mg/dL [facility] RBC LM.HPF (Urine sed) [#/Area] [facility] RBC Ql (U) small [facility] Specific gravity (U) [Rel density] 1.015 1.001 - 1.035 [facility] Transitional cells LM Ql (Urine sed) [facility] Urobilinogen Qn (U) 0.2 [facility] WBC LM.HPF (Urine sed) [#/Area] [facility] No Panel Informationon 01-21 [facility] C REACTIVE PROTEINon 024 CRP [Mass/Vol] 22.6 mg/L High 0 - 10 MG/L [facility] CBC, EDIF, PLATELETon 2023 ABSOLUTE BASOPHIL COUNT 0.0 10*3/uL 0.0 - 0.2 10*3/uL [facility] Basophils/100 WBC (Bld) 0.4 % 0.0 - 2.0 % [facility] Differential cell count method Nom (Bld) AUTO DIFF % [facility] Eosinophils (Bld) [#/Vol] 0.2 10*3/uL 0.0 - 0.7 10*3/uL [facility] Eosinophils/100 WBC (Bld) 1.8 % 0.0 - 11.0 % [facility] Erythrocyte distribution width (RBC) [Ratio] 14.4 % 11.5 - 14.5 % [facility] Hematocrit (Bld) [Volume fraction] 39.0 % 36.0 - 48.0 % [facility] Hemoglobin (Bld) [Mass/Vol] 13.5 g/dL [facility] Interpretation and review of laboratory results Abnormal [facility] Lymphocytes (Bld) [#/Vol] 1.9 10*3/uL 1.2 - 3.4 10*3/uL [facility] Lymphocytes/100 WBC (Bld) 21.6 % 20.0 - 55.0 % [facility] MCH (RBC) [Entitic mass] 31.2 pg 26.0 - 35.0 PG [facility] MCHC (RBC) [Mass/Vol] 34.5 g/dL [facility] MCV (RBC) [Entitic vol] 90.6 fL [facility] Monocytes (Bld) [#/Vol] 1.0 10*3/uL High 0.0 - 0.7 10*3/uL [facility] Monocytes/100 WBC (Bld) 11.8 % High 0.0 - 10.0 % [facility] Neutrophils (Bld) [#/Vol] 5.8 10*3/uL 1.4 - 6.5 10*3/uL [facility] Neutrophils/100 WBC (Bld) 64.4 % 37.0 - 75.0 % [facility] Platelet mean volume (Bld) [Entitic vol] 7.2 fL Low [facility] Platelets (Bld) [#/Vol] 370 10*3/uL 130 - 400 10*3/uL [facility] RBC (Bld) [#/Vol] 4.31 10*6/uL 4.0 - 5.4 10*6/uL [facility] WBC (Bld) [#/Vol] 8.9 10*3/uL 3.6 - 11.0 10*3/uL [facility] COMPREHENSIVE METABOLIC PANE Milo 01-17-2024 Albumin [Mass/Vol] 4.2 G/dl 3.5 - 5.0 G/dl [facility] Albumin/Globulin [Mass ratio] 1.4 {ratio} RATIO [facility] ALP [Catalytic activity/Vol] 83 U/L [facility] ALT [Catalytic activity/Vol] 50 U/L High NINF [facility] AST [Catalytic activity/Vol] 49 U/L High [facility] Bilirubin [Mass/Vol] 0.3 mg/dL [facility] Calcium [Mass/Vol] 9.6 mg/dL [facility] Chloride [Moles/Vol] 104 mmol/L [facility] Comment on above: Please note: Triglyc eride levels of 600mg/dL or higher may positively bias chloride results by approximately 2.1 mmol CO2 [Moles/Vol] 23 mmol/L [facility] Creatinine [Mass/Vol] 0.65 mg/dL Low [facility] GFR COMMENT Average GFR for 30-3 9 years old = 107. [facility] Comment on above: Chronic Kidney disea se, GFR = <60. Kidney failure, GFR = <15. The GFR estimate is not adjusted for extreme body surface area or acute process, nor has it been validated for women or ethnic groups other than and . GFR/1.73 sq M.predicted among blacks MDRD (S/P/Bld) [Vol rate/Area] 131 mL/min/{1.73_m2} ml/min/1.73s q.m [facility] GFR/1.73 sq M.predicted among non-blacks MDRD (S/P/Bld) [Vol rate/Area] 108 mL/min/{1.73_m2} ml/min/1.73s q.m [facility] Glucose post fast [Mass/Vol] 190 mg/dL High [facility] Comment on above: NORMAL <100 mg/dL PREDIABETES 101-126 mg/dL DIABETES 126 mg/dL or higher Potassium [Moles/Vol] 4.0 mmol/L [facility] Protein [Mass/Vol] 7.2 g/dL [facility] Sodium [Moles/Vol] 136 mmol/L Low [facility] Urea nitrogen [Mass/Vol] 14 mg/dL [facility] LIPASEon 01-17-2024 Lipase [Catalytic activity/Vol] 176 U/L 23 - 300 U/L [facility] MAGNESIUMon 01-17-2024 Magnesium [Mass/Vol] 1.7 mg/dL [facility] No Panel Informationon 01-17 Interpretation and review of laboratory results Abnormal [facility] POCT URINE DIPSTICK AUTOMATE Don 01-17-2024 Amorphous sediment LM Ql (Urine sed) [facility] Appearance (U) clear [facility] Bacteria LM Ql (Urine sed) [facility] Bilirubin Ql (U) Negative [facility] Casts LM.LPF (Urine sed) [#/Area] [facility] Color (U) yellow [facility] Crystals LM Nom (Urine sed) [facility] Epithelial cells.squamous LM.HPF (Urine sed) [#/Area] [facility] Flow cytometry specialist review Otis (Unsp spec) [Interp] [facility] Glucose Auto test strip (U) [Mass/Vol] Negative mg/dL [facility] Ketones [Mass/Vol] trace mg/dL [facility] Leukocyte esterase Qn (U) [facility] Leukocyte esterase Test strip Ql (U) Negative [facility] Microscopic observation Gram stain Nom (Bronch spec) [facility] Nitrite Ql (U) Negative [facility] pH (U) 6.0 [pH] 5 - 7 [facility] Protein Ql (U) Negative mg/dL [facility] RBC LM.HPF (Urine sed) [#/Area] [facility] RBC Ql (U) Negative [facility] Specific gravity (U) [Rel density] 1.025 1.001 - 1.035 [facility] Transitional cells LM Ql (Urine sed) [facility] Urobilinogen Qn (U) 0.2 [facility] WBC LM.HPF (Urine sed) [#/Area] [facility] PROTIME-INRon 01-17-2024 INR Coag (PPP) [Relative time] 0.90 {INR} 0.85 - 1.10 [facility] Comment on above: 2.0-3.0 THERAPEUTIC RANGE 2.5-3.5 MECHANICAL VALVE RANGE PT Coag (PPP) [Time] 12.3 s [facility] SEDIMENTATION RATE, AUTOMATE Don 01-17-2024 ESR (Bld) [Velocity] 16 mm/h High [facility] Interpretation and review of laboratory results Abnormal [facility] US Abdomen RUQon 01-17-2024 IMPRESSION: 1. Technically limited examination secondary to bowel gas and body habitus. 2. The gallbladder is not well seen although does appear contracted. Where visible the wall is not abnormally thickened and the gallbladder is nondistended. No definite gallstones. 3. No definite biliary dilatation although limited visualization of the bile duct. 4. Probable nonobstructing right renal calculi. No hydronephrosis. 5. Fatty infiltration liver. RADIOLOGY EXAMINATION: US ABDOMEN RUQ/LIVER/GB REASON FOR EXAM: ruq pain r/o cholecystitis COMPARISON: [employer] study from 03/05/2018. FINDINGS: The liver is echogenic compatible with fatty infiltration. No focal mass. Pancreas is not well seen. The gallbladder is contracted. No gallbladder wall thickening. No definite gallstones or pericholecystic fluid. The common bile duct is also not well seen because of the midline bowel gas. Where visible the common hepatic duct is 4 mm. No ascites identified. The right kidney measures 13 cm long axis. No hydronephrosis. No ascites. Possible stone upper pole right kidney measures 5 mm. RADIOLOGY Jose G Dumont M D - 01/17/2024 EXAMINATION: US ABDOMEN RUQ/LIVER/GB REASON FOR EXAM: ruq pain r/o cholecystitis COMPARISON: [employer] study from 03/05/2018. FINDINGS: The liver is echogenic compatible with fatty infiltration. No focal mass. Pancreas is not well seen. The gallbladder is contracted. No gallbladder wall thickening. No definite gallstones or pericholecystic fluid. The common bile duct is also not well seen because of the midline bowel gas. Where visible the common hepatic duct is 4 mm. No ascites identified. The right kidney measures 13 cm long axis. No hydronephrosis. No ascites. Possible stone upper pole right kidney measures 5 mm. IMPRESSION IMPRESSION: 1. Technically limited examination secondary to bowel gas and body habitus. 2. The gallbladder is not well seen although does appear contracted. Where visible the wall is not abnormally thickened and the gallbladder is nondistended. No definite gallstones. 3. No definite biliary dilatation although limited visualization of the bile duct. 4. Probable nonobstructing right renal calculi. No hydronephrosis. 5. Fatty infiltration liver. [facility] Radiology Study observation (narrative) [facility] US Abdomen RUQOrdered By: Jesse Forrester on 01-17-2024 [facility] Work Phone: LG Jt Injection/Arthrocentes is: R kneeon 05-25-2023 Antwon Martin CNP 05/25/2023 3:33 PM LG Jt Injection/Arthrocentes is: R knee Performed by: Antwon Martin CNP Authorized by: Antwon Martin CNP CPT 39983 - Large Joint Arthrocentesis: Consent given by: Patient Time out: Immediately prior to the procedure a time out was called Physician or proceduralist has discussed critical or nonroutine steps, procedure duration and anticipated blood loss: Yes Supporting Documentation: Indications: Pain Procedure Details: Location: Knee Site: R knee Prep: patient was prepped and draped in usual sterile fashion Needle size: 22 G Approach: Anterolateral Medications: 1 mL dexAMETHasone 4 mg/mL, 1 mL triamcinolone acetonide 40 mg/mL Anesthetic used: Lidocaine 1% and Bupivacaine 0.25% Anesthetic amount (mL): 3 Patient tolerance: Patient tolerated the procedure well with no immediate complications [facility] LG Jt Injection/Arthrocentes is: R subacromial bursaon 05-25-2023 Antwon Martin CNP 05/25/2023 3:33 PM LG Jt Injection/Arthrocentes is: R subacromial bursa Performed by: Antwon Martin CNP Authorized by: Antwon Martin CNP CPT 71264 - Large Joint Arthrocentesis: Consent given by: Patient Time out: Immediately prior to the procedure a time out was called Physician or proceduralist has discussed critical or nonroutine steps, procedure duration and anticipated blood loss: Yes Supporting Documentation: Indications: Pain Procedure Details: Location: Shoulder Site: R subacromial bursa Prep: patient was prepped and draped in usual sterile fashion Needle size: 22 G Approach: Posterior Medications: 1 mL dexAMETHasone 4 mg/mL, 1 mL triamcinolone acetonide 40 mg/mL Anesthetic used: Bupivacaine 0.25% Anesthetic amount (mL): 3 Patient tolerance: Patient tolerated the procedure well with no immediate complications [facility] POCT URINE DIPSTICK AUTOMATE Don 04-04-2023 Amorphous sediment LM Ql (Urine sed) [facility] Appearance (U) clear [facility] Bacteria LM Ql (Urine sed) [facility] Bilirubin Ql (U) Negative [facility] Casts LM.LPF (Urine sed) [#/Area] [facility] Color (U) yellow [facility] Crystals LM Nom (Urine sed) [facility] Epithelial cells.squamous LM.HPF (Urine sed) [#/Area] [facility] Flow cytometry specialist review Otis (Unsp spec) [Interp] [facility] Glucose Auto test strip (U) [Mass/Vol] Negative mg/dL [facility] Ketones [Mass/Vol] Negative mg/dL [facility] Leukocyte esterase Qn (U) [facility] Leukocyte esterase Test strip Ql (U) trace [facility] Microscopic observation Gram stain Nom (Bronch spec) [facility] Nitrite Ql (U) Negative [facility] pH (U) 5.5 [pH] 5 - 7 [facility] Protein Ql (U) Negative mg/dL [facility] RBC LM.HPF (Urine sed) [#/Area] [facility] RBC Ql (U) trace [facility] Specific gravity (U) [Rel density] 1.020 1.001 - 1.035 [facility] Transitional cells LM Ql (Urine sed) [facility] Urobilinogen Qn (U) 0.2 [facility] WBC LM.HPF (Urine sed) [#/Area] [facility] Internal controls OK [facility] CBC, EDIF, PLATELETon 2022 ABSOLUTE BASOPHIL COUNT 0.1 10*3/uL 0.0 - 0.2 10*3/uL [facility] Basophils/100 WBC (Bld) 0.5 % 0.0 - 2.0 % [facility] Differential cell count method Nom (Bld) AUTO DIFF % [facility] Eosinophils (Bld) [#/Vol] 0.2 10*3/uL 0.0 - 0.7 10*3/uL [facility] Eosinophils/100 WBC (Bld) 1.7 % 0.0 - 11.0 % [facility] Erythrocyte distribution width (RBC) [Ratio] 13.2 % 11.5 - 14.5 % [facility] Hematocrit (Bld) [Volume fraction] 42.7 % 36.0 - 48.0 % [facility] Hemoglobin (Bld) [Mass/Vol] 13.8 g/dL [facility] Interpretation and review of laboratory results Abnormal [facility] Lymphocytes (Bld) [#/Vol] 2.3 10*3/uL 1.2 - 3.4 10*3/uL [facility] Lymphocytes/100 WBC (Bld) 20.4 % 20.0 - 55.0 % [facility] MCH (RBC) [Entitic mass] 28.9 pg 26.0 - 35.0 PG [facility] MCHC (RBC) [Mass/Vol] 32.4 g/dL [facility] MCV (RBC) [Entitic vol] 89.4 fL [facility] Monocytes (Bld) [#/Vol] 0.9 10*3/uL High 0.0 - 0.7 10*3/uL [facility] Monocytes/100 WBC (Bld) 8.0 % 0.0 - 10.0 % [facility] Neutrophils (Bld) [#/Vol] 7.7 10*3/uL High 1.4 - 6.5 10*3/uL [facility] Neutrophils/100 WBC (Bld) 69.4 % 37.0 - 75.0 % [facility] Platelet mean volume (Bld) [Entitic vol] 8.2 fL [facility] Platelets (Bld) [#/Vol] 382 10*3/uL 130.0 - 400.0 10*3/uL [facility] RBC (Bld) [#/Vol] 4.78 10*6/uL 4.0 - 5.4 10*6/uL [facility] WBC (Bld) [#/Vol] 11.1 10*3/uL High 3.6 - 11.0 10*3/uL [facility] COMPREHENSIVE METABOLIC PANE Milo 01-30-2023 Albumin [Mass/Vol] 4.4 G/dl 3.5 - 5.0 G/dl [facility] Albumin/Globulin [Mass ratio] 1.2 {ratio} Low [facility] ALP [Catalytic activity/Vol] 82 U/L [facility] ALT [Catalytic activity/Vol] 34 U/L [facility] AST [Catalytic activity/Vol] 27 U/L [facility] Bilirubin [Mass/Vol] 0.3 mg/dL [facility] Calcium [Mass/Vol] 10.0 mg/dL [facility] Chloride [Moles/Vol] 98 mmol/L [facility] CO2 [Moles/Vol] 26 mmol/L [facility] Creatinine [Mass/Vol] 0.62 mg/dL [facility] GFR COMMENT Average GFR for 30-3 9 years old = 107. [facility] Comment on above: Chronic Kidney disea se, GFR = <60. Kidney failure, GFR = <15. The GFR estimate is not adjusted for extreme body surface area or acute process, nor has it been validated for women or ethnic groups other than and . GFR/1.73 sq M.predicted among blacks MDRD (S/P/Bld) [Vol rate/Area] 139 mL/min/{1.73_m2} ml/min/1.73s q.m [facility] GFR/1.73 sq M.predicted among non-blacks MDRD (S/P/Bld) [Vol rate/Area] 115 mL/min/{1.73_m2} ml/min/1.73s q.m [facility] Glucose post fast [Mass/Vol] 199 mg/dL High [facility] Comment on above: NORMAL <100 mg/dL PREDIABETES 101-126 mg/dL DIABETES 126 mg/dL or higher Interpretation and review of laboratory results Abnormal [facility] Potassium [Moles/Vol] 4.1 mmol/L [facility] Protein [Mass/Vol] 8.0 g/dL [facility] Sodium [Moles/Vol] 134 mmol/L Low [facility] Urea nitrogen [Mass/Vol] 18 mg/dL [facility] POCT URINALYSIS DIPSTICK AUT OMATED W/O SCOPon 01-30-2023 Amorphous sediment LM Ql (Urine sed) [facility] Appearance (U) clear [facility] Bacteria LM Ql (Urine sed) [facility] Bilirubin Ql (U) Negative [facility] Casts LM.LPF (Urine sed) [#/Area] [facility] Color (U) yellow [facility] Crystals LM Nom (Urine sed) [facility] Epithelial cells.squamous LM.HPF (Urine sed) [#/Area] [facility] Flow cytometry specialist review Otis (Unsp spec) [Interp] [facility] Glucose Auto test strip (U) [Mass/Vol] Negative mg/dL [facility] Ketones [Mass/Vol] Negative mg/dL [facility] Leukocyte esterase Qn (U) [facility] Leukocyte esterase Test strip Ql (U) Negative [facility] Nitrite Ql (U) Negative [facility] pH (U) 5.5 [pH] 5 - 7 [facility] Protein Ql (U) Negative mg/dL [facility] RBC LM.HPF (Urine sed) [#/Area] [facility] RBC Ql (U) Negative [facility] Specific gravity (U) [Rel density] 1.001 - 1.035 [facility] Transitional cells LM Ql (Urine sed) [facility] Urobilinogen Qn (U) 0.2 [facility] WBC LM.HPF (Urine sed) [#/Area] [facility] LG Jt Injection/Arthrocentes is: R subacromial bursaon 01-26-2023 Abdulaziz Rodríguez NP 01/26/2023 11:35 AM LG Jt Injection/Arthrocentes is: R subacromial bursa Performed by: Antwon Martin CNP Authorized by: Antwon Martin CNP CPT 56631 - Large Joint Arthrocentesis: Consent given by: Patient Time out: Immediately prior to the procedure a time out was called Physician or proceduralist has discussed critical or nonroutine steps, procedure duration and anticipated blood loss: Yes Supporting Documentation: Indications: Pain Procedure Details: Location: Shoulder Site: R subacromial bursa Prep: patient was prepped and draped in usual sterile fashion Needle size: 22 G Approach: Posterior Medications: 1 mL dexamethasone 4 mg/mL, 1 mL triamcinolone acetonide 40 mg/mL Anesthetic used: Bupivacaine 0.5% and Bupivacaine 0.25% Anesthetic amount (mL): 1 Patient tolerance: Patient tolerated the procedure well with no immediate complications [facility] LG Jt Injection/Arthrocentes is: R subacromial bursaon 10-27-2022 Abdulaziz Rodríguez NP 10/27/2022 3:35 PM LG Jt Injection/Arthrocentes is: R subacromial bursa Performed by: Antwon Martin CNP Authorized by: Antwon Martin CNP CPT 13153 - Large Joint Arthrocentesis: Consent given by: Patient Time out: Immediately prior to the procedure a time out was called Physician or proceduralist has discussed critical or nonroutine steps, procedure duration and anticipated blood loss: Yes Supporting Documentation: Indications: Pain Procedure Details: Location: Shoulder Site: R subacromial bursa Prep: patient was prepped and draped in usual sterile fashion Needle size: 22 G Approach: Posterior Medications: 1 mL dexamethasone 4 mg/mL, 1 mL triamcinolone acetonide 40 mg/mL Anesthetic used: Bupivacaine 0.5% and Lidocaine 1% Anesthetic amount (mL): 4 Patient tolerance: Patient tolerated the procedure well with no immediate complications [facility] Harsh 09-05-2022 MARBELLAN Telephone (DOMINIQUEWS) OSWALDO MOREL ([id number]) 1985 F Date Time Provider Department 09/05/22 ELDERROHIT CORBETT During your visit today, we recorded the following information about you: Lucila Cullen Dorado 09/05/2022 1:24 PM Signed Type of letter/form/fax request - FMLA-for her parents Gail and Poncho Morel Form received from pt on 1 floor and placed on MD desk (Dr. Clarke) for completion. Completed form needs to be faxed to [phone]. Route to [place] when form completed for processing Rohit Clarke MD 09/18/2022 5:15 PM Signed Forms done MD Alicia Jaquez Ma 09/19/2022 11:25 AM Signed Daughter called and LM on to return call on if she would like forms or to fax then scan into pt's chart. Mother has appt today with Shanice. If daughter with her we can ask. Forms in PCP's back office, until we hear back. Alicia Berman Ma 09/23/2022 11:42 AM Signed Paperwork faxed to [phone]. Lucila Berman Ma Allergies As of Date: 09/05/2022 Noted Allergy Reaction BEES 07/03/2015 7 - Swelling Date Reviewed: 04/04/2018 Reviewed by: Cherelle Ralph Ma - Fully Assessed Reason for Visit: [place] Paperwork [[id number]] Cmt: For her parents Gail and Poncho Prescriptions as of 09/23/2022 - TENA'S WORT ORAL Take by mouth. - lisinopril (ZESTRIL, PRINIVIL) 5 mg tablet - meloxicam (MOBIC) 15 mg tablet - atenolol (TENORMIN) 25 mg tablet Take 0.5 tablets by mouth once daily. - levothyroxine (SYNTHROID) 112 mcg tablet Take 1 tablet by mouth once daily. Problem List As Of Date 09/05/2022 Noted Resolved Essential hypertension [I10] 09/25/2015 Hypothyroidism (acquired) [E03.9] 09/25/2015 Pain in right knee [M25.561] 10/16/2015 Pain in right shoulder [M25.511] 10/16/2015 Encounter Status:Closed by LUCILA BERMAN MA [facility]23[facility] Injection/Arthrocentes is: R subacromial bursaon 04-16-2022 Abdulaziz Rodríguez NP 04/18/2022 8:22 AM LG Jt Injection/Arthrocentes is: R subacromial bursa Date/Time: 04/16/2022 3:20 PM Performed by: Antwon Martin CNP Authorized by: Antwon Martin CNP CPT 24640 - Large Joint Arthrocentesis: Consent given by: Patient Time out: Immediately prior to the procedure a time out was called Physician or proceduralist has discussed critical or nonroutine steps, procedure duration and anticipated blood loss: Yes Supporting Documentation: Indications: Pain Procedure Details: Location: Shoulder Site: R subacromial bursa Prep: patient was prepped and draped in usual sterile fashion Needle size: 22 G Approach: Posterior Medications: 1 mL dexamethasone 4 mg/mL, 1 mL triamcinolone acetonide 40 mg/mL Anesthetic used: Bupivacaine 0.5% and Lidocaine 1% Anesthetic amount (mL): 4 Patient tolerance: Patient tolerated the procedure well with no immediate complications [facility] POCT URINALYSIS DIPSTICK AUT OMATED W/O SCOPon 01-28-2022 Amorphous sediment LM Ql (Urine sed) [facility] Appearance (U) clear [facility] Bacteria LM Ql (Urine sed) [facility] Bilirubin Ql (U) Negative [facility] Casts LM.LPF (Urine sed) [#/Area] [facility] Color (U) yellow [facility] Crystals LM Nom (Urine sed) [facility] Epithelial cells.squamous LM.HPF (Urine sed) [#/Area] [facility] [facility] Flow cytometry specialist review Otis (Unsp spec) [Interp] [facility] Glucose Auto test strip (U) [Mass/Vol] Negative mg/dL [facility] Ketones [Mass/Vol] neg1.020 mg/dL [facility] Leukocyte esterase Qn (U) [facility] Leukocyte esterase Test strip Ql (U) [facility] Nitrite Ql (U) Negative [facility] pH (U) Negative [facility] Protein Ql (U) 0.2 mg/dL [facility] RBC LM.HPF (Urine sed) [#/Area] [facility] RBC Ql (U) 7.0 [facility] Specific gravity (U) [Rel density] Negative [facility] Transitional cells LM Ql (Urine sed) [facility] Urobilinogen Qn (U) Negative [facility] WBC LM.HPF (Urine sed) [#/Area] [facility] POCT URINALYSIS DIPSTICK AUT OMATED W/O SCOPon 07-24-2021 Amorphous sediment LM Ql (Urine sed) [facility] Appearance (U) clear [facility] Bacteria LM Ql (Urine sed) [facility] Bilirubin Ql (U) Negative [facility] Casts LM.LPF (Urine sed) [#/Area] [facility] Color (U) yellow [facility] Crystals LM Nom (Urine sed) [facility] Epithelial cells.squamous LM.HPF (Urine sed) [#/Area] [facility] Flow cytometry specialist review Otis (Unsp spec) [Interp] [facility] Glucose Auto test strip (U) [Mass/Vol] Negative mg/dL [facility] Ketones [Mass/Vol] Negative mg/dL [facility] Leukocyte esterase Qn (U) [facility] Leukocyte esterase Test strip Ql (U) Negative [facility] Nitrite Ql (U) Negative [facility] pH (U) 6.0 [pH] [facility] Protein Ql (U) Negative mg/dL [facility] RBC LM.HPF (Urine sed) [#/Area] [facility] RBC Ql (U) Negative [facility] Specific gravity (U) [Rel density] 1.015 [facility] Transitional cells LM Ql (Urine sed) [facility] Urobilinogen Qn (U) 0.2 [facility] WBC LM.HPF (Urine sed) [#/Area] [facility] GLUCOSE (POC DEVICE)Ordered By: Juan Dominique on 06-13-2021 GLUCOSE, POINT OF CARE [address] [facility] Interpretation and review of laboratory results Abnormal [facility] Operator [id number] [facility] Glucose [Mass/Vol] 136 mg/dL Abnormal 70 - 99 mg/dL [facility] Interpretation and review of laboratory results Abnormal [facility] HCG ( test) Ql (U)O rdered By: Jose R Sawyer on 06-13-2021 [facility] HCG QUALITATIVE, URINEOrdere d By: Jose R Sawyer on 06-13-2021 HCG ( test) Ql (U) Negative NEGATIVE [facility] POCT URINALYSIS DIPSTICK AUT OMATED W/O SCOPOrdered By: Juan Dominique on 06-04-2021 Amorphous sediment LM Ql (Urine sed) [facility] Appearance (U) clear [facility] Bacteria LM Ql (Urine sed) [facility] Bilirubin Ql (U) Negative [facility] Casts LM.LPF (Urine sed) [#/Area] [facility] Color (U) yellow [facility] Crystals LM Nom (Urine sed) [facility] Epithelial cells.squamous LM.HPF (Urine sed) [#/Area] [facility] Flow cytometry specialist review Otis (Unsp spec) [Interp] [facility] Glucose Auto test strip (U) [Mass/Vol] Negative mg/dL [facility] Ketones [Mass/Vol] Negative mg/dL [facility] Leukocyte esterase Qn (U) [facility] Leukocyte esterase Test strip Ql (U) Negative [facility] Nitrite Ql (U) Negative [facility] pH (U) 6.0 [pH] [facility] Protein Ql (U) Negative mg/dL [facility] RBC LM.HPF (Urine sed) [#/Area] [facility] RBC Ql (U) SMALL [facility] Specific gravity (U) [Rel density] 1.020 [facility] Transitional cells LM Ql (Urine sed) [facility] Urobilinogen Qn (U) 0.2 [facility] WBC LM.HPF (Urine sed) [#/Area] [facility] CT ABDOMEN/PELVIS WITHOUT CO NTRASTOrdered By: Favio Kaiser on 05-31-2021 IMPRESSION: 1. Punctate calculi of both kidneys without inflammation or hydronephrosis. However there is a 7.3 mm calculus noted at or near the right UVJ. 2. Mild enlargement with slight to mild fatty changes noted of the liver. [facility] EXAMINATION: CT ABDOMEN/PELVIS WITHOUT CONTRAST HISTORY: Lower back pain blood in urine x1 week. COMPARISON: None. TECHNIQUE: CT examination of the abdomen and pelvis without IV contrast. Coronal and sagittal reformations were performed. Oral contrast was not given. Dose reduction techniques were achieved by using automated exposure control and/or adjustment of mA and/or kV according to patient size and/or use of iterative reconstruction technique. REPORT: The lung bases are clear and well aerated. Visualized heart shows no pericardial effusion or gross enlargement. The gastroesophageal junction is unremarkable. The abdominal and pelvic vasculature is unremarkable. The liver shows mild enlargement and slight to mild fatty changes. No ductal dilatation or focal abnormal density is noted. The gallbladder shows no stones or inflammation. The stomach, spleen, pancreas, duodenum and adrenal glands are unremarkable. There is a punctate stone in the left kidney. No stones are noted of the right kidney. The kidneys show no inflammation. Punctate calculus is noted at the superior pole of the right kidney. Right and left ureter show no gross defect. There is a calculus measuring 7.3 mm at or near the left UVJ. The bladder is otherwise unremarkable. The inguinal and ischiorectal regions are unremarkable. The anus and rectum are unremarkable. The uterus and adnexal areas are unremarkable. The large and small bowel show no signs of obstruction or severe inflammation. There is mild stool throughout the colon. Ileocecal junction and appendix are unremarkable. The mesentery is unremarkable. There is no free air, free fluid, loculated fluid, mass or lymphadenopathy. No abdominal wall hernia is noted. Subcutaneous tissues are unremarkable. No bony lesions or degenerative changes are noted. [employer] User, Interfaces - 05/31/2021 6:07 PM EDT EXAMINATION: CT ABDOMEN/PELVIS WITHOUT CONTRAST HISTORY: Lower back pain blood in urine x1 week. COMPARISON: None. TECHNIQUE: CT examination of the abdomen and pelvis without IV contrast. Coronal and sagittal reformations were performed. Oral contrast was not given. Dose reduction techniques were achieved by using automated exposure control and/or adjustment of mA and/or kV according to patient size and/or use of iterative reconstruction technique. REPORT: The lung bases are clear and well aerated. Visualized heart shows no pericardial effusion or gross enlargement. The gastroesophageal junction is unremarkable. The abdominal and pelvic vasculature is unremarkable. The liver shows mild enlargement and slight to mild fatty changes. No ductal dilatation or focal abnormal density is noted. The gallbladder shows no stones or inflammation. The stomach, spleen, pancreas, duodenum and adrenal glands are unremarkable. There is a punctate stone in the left kidney. No stones are noted of the right kidney. The kidneys show no inflammation. Punctate calculus is noted at the superior pole of the right kidney. Right and left ureter show no gross defect. There is a calculus measuring 7.3 mm at or near the left UVJ. The bladder is otherwise unremarkable. The inguinal and ischiorectal regions are unremarkable. The anus and rectum are unremarkable. The uterus and adnexal areas are unremarkable. The large and small bowel show no signs of obstruction or severe inflammation. There is mild stool throughout the colon. Ileocecal junction and appendix are unremarkable. The mesentery is unremarkable. There is no free air, free fluid, loculated fluid, mass or lymphadenopathy. No abdominal wall hernia is noted. Subcutaneous tissues are unremarkable. No bony lesions or degenerative changes are noted. IMPRESSION IMPRESSION: 1. Punctate calculi of both kidneys without inflammation or hydronephrosis. However there is a 7.3 mm calculus noted at or near the right UVJ. 2. Mild enlargement with slight to mild fatty changes noted of the liver. [facility] HCG ( test) Ql (U)O rdered By: Favio Kaiser on 05-31-2021 [facility] HCG QUALITATIVE, URINEOrdere d By: Favio Kaiser on 05-31-2021 HCG ( test) Ql (U) Negative NEGATIVE [facility] No Panel InformationOrdered By: Favio Kaiser on 05-31-2021 Interpretation and review of laboratory results Abnormal [facility] URINALYSIS, MACROOrdered By: Favio Kaiser on 05-31-2021 Bilirubin Ql (U) Negative NEGATIVE [facility] Clarity (U) CLEAR CLEAR [facility] Color (U) YELLOW YELLOW [facility] Glucose Test strip (U) [Mass/Vol] Negative NEGATIVE mg/dl [facility] Hemoglobin Ql (U) Negative NEGATIVE [facility] Ketones (U) [Mass/Vol] 15 mg/dL Abnormal NEGATIVE [facility] Leukocyte esterase Test strip Ql (U) Negative NEGATIVE [facility] Nitrite Ql (U) Positive Abnormal NEGATIVE [facility] pH (U) 6.0 [pH] [facility] Protein Ql (U) Negative NEGATIVE mg/dl [facility] Specific gravity (U) [Rel density] 1.020 [facility] Urobilinogen (U) [Mass/Vol] 0.2 mg/dL [facility] URINE MICROSCOPICOrdered By: Favio Kaiser on 05-31-2021 Bacteria LM.HPF (Urine sed) [#/Area] TRACE Abnormal NEGATIVE [facility] Casts LM.LPF (Urine sed) [#/Area] NONE NONE /LPF [facility] Crystals LM Nom (Urine sed) NONE NONE [facility] Epithelial cells LM Ql (Urine sed) 1 TO 5 /HPF [facility] Mucus Ql (Urine sed) Negative NEGATIVE [facility] RBC LM.HPF (Urine sed) [#/Area] 1 TO 5 NEGATIVE /HPF [facility] Urine sediment comments LM Otis (Urine sed) REFLEX CULTURE PER ESTABLISHED CRITERIA. [facility] WBC LM.HPF (Urine sed) [#/Area] 1 TO 5 NEGATIVE /HPF [facility] POCT URINALYSIS DIPSTICK NON AUTOMATEDOrdered By: Lula High on 05-27-2021 Amorphous sediment LM Ql (Urine sed) [facility] Appearance (U) clear [facility] Bacteria LM Ql (Urine sed) [facility] Bilirubin Ql (U) Negative [facility] Casts LM.LPF (Urine sed) [#/Area] [facility] Color (U) yellow [facility] Crystals LM Nom (Urine sed) [facility] Epithelial cells.squamous LM.HPF (Urine sed) [#/Area] [facility] Flow cytometry specialist review [place]is (Unsp spec) [Interp] [facility] Glucose Auto test strip (U) [Mass/Vol] Negative mg/dL [facility] Ketones [Mass/Vol] Negative mg/dL [facility] Leukocyte esterase Qn (U) [facility] Leukocyte esterase Test strip Ql (U) trace [facility] Nitrite Ql (U) Negative [facility] pH (U) 5.5 [pH] [facility] Protein Ql (U) Negative mg/dL [facility] RBC LM.HPF (Urine sed) [#/Area] [facility] RBC Ql (U) mod [facility] Specific gravity (U) [Rel density] 1.025 [facility] Transitional cells LM Ql (Urine sed) [facility] Urobilinogen Qn (U) 0.2 [facility] WBC LM.HPF (Urine sed) [#/Area] [facility] [place] ORT LARGE JOINT ARTHROCEN TESISon 09-12-2020 Abdulaziz Rodríguez NP 09/12/2020 4:35 PM LG Jt Injection/Arthrocentes is: R subacromial bursa Performed by: Antwon Martin CNP Authorized by: Antwon Martin CNP CPT 48020 - Large Joint Arthrocentesis: Consent given by: Patient Time out: Immediately prior to the procedure a time out was called Physician or proceduralist has discussed critical or nonroutine steps, procedure duration and anticipated blood loss: Yes Supporting Documentation: Indications: Pain Procedure Details: Location: Shoulder Site: R subacromial bursa Prep: patient was prepped and draped in usual sterile fashion Needle size: 22 G Approach: Posterior Medications: 1 mL dexamethasone 4 mg/mL, 1 mL triamcinolone acetonide 40 mg/mL Anesthetic used: Bupivacaine 0.5% and Lidocaine 1% Anesthetic amount (mL): 4 Patient tolerance: Patient tolerated the procedure well with no immediate complications [facility] ECG, TREADMILL STRESS (NON-I MAGING)on 03-09-2020 APPROVED REPORT Stress ECG Conclusion 1. A maximal treadmill exercise stress test with no symptomatic nor ECG evidence of coronary artery ischemia. 2. Rare VPC's 3. Overall impression: No symptomatic nor ECG evidence of coronary artery ischemia. Clinical Reason for Termination: Fatigue, Dyspnea, Target heart rate achieved Stress Symptoms: Fatigue, Dyspnea, Exercise duration: 6:01 min Highest Stage Achieved: Stage 4: 3.4 mph at 16% grade. Exercise capacity: 10.00 METs Overall Exercise Capacity for Age: Average ALL% Scale: Active Angina Score: None Testing Details Test: Exercise stress testing was performed using a 2 minute Abbe protocol. HR Resting HR: 87 bpm Max Heart Rate (APMHR): 185 bpm Max HR Achieved: 162 bpm Target HR (85% APMHR): 157 bpm % of APMHR: 87 HR response to stress: Normal BP Resting BP: 124/92 mmHg Max BP: 184/88 mmHg BP response to stress: Hypertensive ECG Resting ECG: Sinus rhythm, LVLL, normal axis and intervals, no STT change. Stress ECG: Sinus Rhythm, Sinus Tachycardia ST Change: None Arrhythmia: Rare VPC's Recovery ECG: Sinus Rhythm Recovery ST Change: Normal Recovery ST Deviation: 0 mm Recovery Arrhythmia: VPC A maximal treadmill exercise stress test with no symptomatic nor ECG evidence of coronary artery ischemia. Rare VPC's Overall impression: No symptomatic nor ECG evidence of coronary artery ischemia. [email or web address] User, Interfaces - 03/09/2020 3:50 PM EDT APPROVED REPORT Stress ECG Conclusion 1. A maximal treadmill exercise stress test with no symptomatic nor ECG evidence of coronary artery ischemia. 2. Rare VPC's 3. Overall impression: No symptomatic nor ECG evidence of coronary artery ischemia. Clinical Reason for Termination: Fatigue, Dyspnea, Target heart rate achieved Stress Symptoms: Fatigue, Dyspnea, Exercise duration: 6:01 min Highest Stage Achieved: Stage 4: 3.4 mph at 16% grade. Exercise capacity: 10.00 METs Overall Exercise Capacity for Age: Average ALL% Scale: Active Angina Score: None Testing Details Test: Exercise stress testing was performed using a 2 minute Abbe protocol. HR Resting HR: 87 bpmMax Heart Rate (APMHR): 185 bpm Max HR Achieved: 162 bpmTarget HR (85% APMHR): 157 bpm % of APMHR: 87 HR response to stress: Normal BP Resting BP: 124/92 mmHg Max BP: 184/88 mmHg BP response to stress: Hypertensive ECG Resting ECG: Sinus rhythm, LVLL, normal axis and intervals, no STT change. Stress ECG: Sinus Rhythm, Sinus Tachycardia ST Change: None Arrhythmia: Rare VPC's Recovery ECG: Sinus Rhythm Recovery ST Change: Normal Recovery ST Deviation: 0 mm Recovery Arrhythmia: VPC A maximal treadmill exercise stress test with no symptomatic nor ECG evidence of coronary artery ischemia. Rare VPC's Overall impression: No symptomatic nor ECG evidence of coronary artery ischemia. [employer] Alcohol, [place] 0 Ethanol [Mass/Vol] mg/dL <10.00 mg/dL [facility] Comment on above: Alcohol cutoff: <10. 00 mg/dL = None Detected Interpretation and review of laboratory results Normal [facility] CBC WITH AUTO DIFFERENTIALon 12-20-2019 Basophils (Bld) [#/Vol] 0.04 10*3/uL [facility] Basophils/100 WBC (Bld) 0.3 % [facility] Eosinophils (Bld) [#/Vol] 0.07 10*3/uL [facility] Eosinophils/100 WBC (Bld) 0.5 % [facility] Erythrocyte distribution width (RBC) [Entitic vol] 12.3 % 11.6 - 14.8 % [facility] Hematocrit (Bld) [Volume fraction] 40.7 % 36 - 46 % [facility] Hemoglobin (Bld) [Mass/Vol] 13.4 g/dL 12 - 16 g/dL [facility] Immature granulocytes (Bld) [#/Vol] 0.07 10*3/uL [facility] Immature granulocytes/100 WBC (Bld) 0.50 % [facility] Comment on above: The IG parameter is the percentage of metamyelocytes, myelocytes, and promyelocytes. Interpretation and review of laboratory results Abnormal [facility] Lymphocytes (Bld) [#/Vol] 2.44 10*3/uL [facility] Lymphocytes/100 WBC (Bld) 19.2 % [facility] MCH (RBC) [Entitic mass] 30.7 pg 26 - [address] [facility] MCHC (RBC) [Mass/Vol] 32.9 g/dL 31 - 37 g/dL [facility] MCV (RBC) [Entitic vol] 93.1 fL 80 - [address] [facility] Monocytes (Bld) [#/Vol] 1.15 10*3/uL High [facility] Monocytes/100 WBC (Bld) 9.0 % [facility] Neutrophils (Bld) [#/Vol] 8.96 10*3/uL High [facility] Neutrophils/100 WBC (Bld) 70.5 % [facility] Nucleated RBC (Bld) [#/Vol] 0.00 10*3/uL [facility] Nucleated RBC/100 WBC (Bld) [Ratio] 0.0 % [facility] Platelet mean volume (Bld) [Entitic vol] 9.4 fL 9 - 15.[address] [facility] Platelets (Bld) [#/Vol] 440 10*3/uL High [facility] RBC (Bld) [#/Vol] 4.37 10*6/uL [facility] WBC (Bld) [#/Vol] 12.73 10*3/uL [facility] Chem 7on 12-20-2019 Anion gap [Moles/Vol] 15 mmol/L 10 - 2 0 mmol/L [facility] Chloride [Moles/Vol] 103 mmol/L 98 - 10 8 mmol/L [facility] Creatinine [Mass/Vol] 0.94 mg/dL 0.4 - 1.1 mg/dL [facility] GFR/1.73 sq M predicted among non-blacks MDRD (S/P/Bld) [Vol rate/Area] The eGFR should be used for monitoring renal function only and not for medication dosing. [facility] GFR/1.73 sq M.predicted CKD-EPI (S/P/Bld) [Vol rate/Area] 79 >=60 mL/min/1.[address] [facility] Glucose [Mass/Vol] 129 mg/dL High 65 - 99 mg/dL [facility] HCO3 [Moles/Vol] 18 mmol/L Low 21 - 32 mmol/L [facility] Interpretation and review of laboratory results Abnormal [facility] Potassium [Moles/Vol] 3.8 mmol/L 3.5 - 5.1 mmol/L [facility] Sodium [Moles/Vol] 132 mmol/L Low 135 - 145 mmol/L [facility] Urea nitrogen [Mass/Vol] 13 mg/dL 8 - 25 mg/dL [facility] Urea nitrogen/Creatinine [Mass ratio] 13.8 mg/mg [facility] DRUGS OF ABUSE SCREEN, URINE on 12-20-2019 Amphetamines Ql (U) None Detected None Detected [facility] Comment on above: Urine Amphetamine Cu toff: < 1000 ng/mL = None Detected Barbiturates Screen Ql (U) None Detected None Detected [facility] Comment on above: Urine Barbiturates C utoff: < 200 ng/mL = None Detected Benzodiazepines Ql (U) None Detected None Detected [facility] Comment on above: Urine Benzodiazepine Cutoff: < 200 ng/mL = None Detected Cannabinoids Screen Ql (U) None Detected None Detected [facility] Comment on above: Urine Cannabinoids C utoff: < 50 ng/mL = None Detected Cocaine Ql (U) None Detected None Detected [facility] Comment on above: Urine Cocaine Cutoff : < 300 ng/mL = None Detected Interpretation and review of laboratory results Normal [facility] Methadone Screen Ql (U) None Detected None Detected [facility] Comment on above: Urine Methadone Cuto ff: < 300 ng/mL = None Detected Opiates Screen Ql (U) None Detected None Detected [facility] Comment on above: Urine Opiates Cutoff : < 300 ng/mL = None Detected Oxycodone Ql (U) None Detected None Detected [facility] Comment on above: Urine Oxycodone Cuto ff: < 100 ng/mL = None Detected Screen results shoul d be used for treatment purposes only. [facility] ECG 12-LEADon 12-20-2019 Atrial Rate [address] [facility] P [place] [address] [facility] P-R Interval [address] [facility] Q-T Interval [address] [facility] QRS Duration [address] [facility] QTC Calculation (Bezet) [address] [facility] R [place] [address] [facility] T [place] [address] [facility] Ventricular Rate 85 BPM [facility] Sinus rhythm with Premature atrial complexes Otherwise normal ECG ECG Cart Interpretation see physician note for interpretation. Confirmed by Santa Santoyo ([id number]) on 12/20/2019 7:28:[address] [facility] Atrial Rate [facility] P [place] [facility] P-R Interval [facility] Q-T Interval [facility] Q-T Interval (corrected) [facility] QRS Duration [facility] QTC Calculation (Bezet) [facility] R [place] [facility] T [place] [facility] Ventricular Rate [facility] th Otheron 12-20-2019 Extra Tube Hold for add-ons. [facility] Comment on above: Auto resulted. POC , Urineon 12-20 HCG ( test) Ql (U) Negative Negative [facility] Internal Control Pass [facility] Interpretation and review of laboratory results Normal [facility] Specific gravity (U) [Rel density] [facility] POC URINALYSIS, AUTO [place] URGE NT CAREon 12-20-2019 Bilirubin Ql (U) Negative Negative [facility] Clarity, UA Slightly Cloudy Abnormal Clear [facility] Color (U) Dark Yellow Yellow, Light Yellow, Dark Yellow [facility] Glucose Ql (U) Negative Normal, Negative mg/dL [facility] Hemoglobin Ql (U) Negative Negative [facility] Interpretation and review of laboratory results Abnormal [facility] Ketones Ql (U) Negative Negative mg/dL [facility] Leukocyte esterase Test strip Ql (U) Negative Negative [facility] Nitrite Ql (U) Negative Negative [facility] pH (U) 6.0 [pH] [facility] Protein Ql (U) Negative Negative mg/dL [facility] Specific gravity (U) [Rel density] 1.[address] [facility] Urobilinogen Qn (U) 0.2 mg/dL <2.0, 0. 2, Normal, Negative, 1.0, 2.0, <1.[address] [facility] TROPONINon 12-20-2019 Troponin I.cardiac [Mass/Vol] Normal [facility] Troponin I.cardiac [Mass/Vol] ng/mL <=45 ng/L [facility] TSH with Reflex Free T4on Interpretation and review of laboratory results Normal [facility] TSH Qn 2.13 m[IU]/L [facility] URINALYSISon 12-20-2019 Bacteria Auto Ql (U) Rare Abnormal None Se en /hpf [facility] Bilirubin Ql (U) Negative Negative [facility] th Clarity Refractometry automated (U) Clear Clear [facility] Color (U) Colorless Colorless, Yellow [facility] Epithelial cells.squamous Auto (Urine sed) [#/Area] <[address] [facility] Glucose Auto test strip (U) [Mass/Vol] Negative Negative mg/dL [facility] Hemoglobin Auto test strip Ql (U) Negative Negative [facility] Interpretation and review of laboratory results Abnormal [facility] Ketones (U) [Mass/Vol] Negative Negative mg/dL [facility] Leukocyte esterase Auto test strip Ql (U) Negative Negative [facility] Mucus Auto (Urine sed) [#/Area] Rare None Seen, Rare /lpf [facility] Nitrite Auto test strip Ql (U) Negative Negative [facility] [facility] pH (U) 6.0 [pH] [facility] Protein (U) [Mass/Vol] Negative Negative mg/dL [facility] Specific gravity (U) [Rel density] 1.[address] [facility] Urobilinogen (U) [Mass/Vol] <2.0 <2.0 mg/dL [facility] Microscopic examination is performed on all urinalysis samples and only positive findings are reported. The test for blood on the chemical analytic portion of urinalysis may also be positive due to hemoglobinuria and myoglobinuria and if red blood cells are present they are quantified by microscopic examination. [facility] Urine Pregnancyon 12-20-2019 Beta HCG ( test) Ql (U) Urine specific gravity less than 1.010 can give a false negative test result. Any specimen with a specific gravity less than 1.010 or collected before the first day of a missed menstrual period should be checked with a serum test. [facility] HCG ( test) Ql (U) Negative Negative [facility] Interpretation and review of laboratory results Normal [facility] XR CHEST AP/PA AND LATon XR CHEST AP/PA AND LAT EXAMINATION: XR CHEST AP/PA AND LAT HISTORY: back pain, nauseaDx: R11.0 (Nausea) COMPARISON: Chest radiograph 08/18/2017. FINDINGS: Frontal and lateral views of the chest obtained. No focal consolidation, effusion or pneumothorax. Cardiomediastinal silhouette and pulmonary vascularity are normal. No acute osseous abnormality. IMPRESSION: No acute disease. Workstation ID: [id number] Dictated by: ELZBIETA GONZAELZ on ThuDec 20, 2019 2:09:31 PM EST Transcribed by: ELZBIETA GONZALEZ on ThuDec 20, 2019 2:09:31 PM EST Finalized by: ELZBIETA GONZALEZ on ThuDec 20, 2019 2:09:31 PM EST Normal [facility] Comment on above: Order Comment: Injur y/Trauma or Illness?:Illness/Other How long have you had these symptoms (acute/chronic)?:Acute Reason for exam?:right shoulder pain that radiates to back History of cancer?:u Surgeries, chemotherapy, or radiation?:u Type of Exam?:Initial Additional signs and symptoms?:na EXAMINATION: XR CHES T AP/PA AND LAT HISTORY: back pain, nauseaDx: R11.0 (Nausea) COMPARISON: Chest radiograph 08/18/2017. FINDINGS: Frontal and lateral views of the chest obtained. No focal consolidation, effusion or pneumothorax. Cardiomediastinal silhouette and pulmonary vascularity are normal. No acute osseous abnormality. [facility] Interface, Rad In Fu ji Speechq - 12/20/2019 2:12 PM EST EXAMINATION: XR CHEST AP/PA AND LAT HISTORY: back pain, nauseaDx: R11.0 (Nausea) COMPARISON: Chest radiograph 08/18/2017. FINDINGS: Frontal and lateral views of the chest obtained. No focal consolidation, effusion or pneumothorax. Cardiomediastinal silhouette and pulmonary vascularity are normal. No acute osseous abnormality. IMPRESSION: No acute disease. Workstation ID: [id number] [facility] No acute disease. Workstation ID: [id number] [facility] MR CERVICAL SPINE WITHOUT CO NTRASTon 10-12-2019 Examination is somewhat degraded by motion. Aayuu-sy-vrkpangy right C4-5 paracentral disc herniation, contacts and mildly flattens the right ventral spinal cord. No underlying spinal cord edema. Mild associated central canal narrowing. C5-6 mild disc bulge with mild central canal narrowing. /[facility] Workstation ID: [id number] [facility] EXAMINATION: MR CERVICAL SPINE WITHOUT CONTRAST HISTORY: ORDERING SYSTEM PROVIDED HISTORY: Cervical radiculopathy, TECHNOLOGIST PROVIDED HISTORY: Injury/Trauma Reason for exam: neck pain and stiffness, rt arm pain Encounter Type: Initial Mechanism of injury: fall ORDERING SYSTEM PROVIDED DIAGNOSIS CODES: M54.12 Cervical radiculopathy COMPARISON: None. TECHNIQUE: MR cervical spine without contrast. FINDINGS: Mild straightening of the cervical lordosis. No subluxation. Vertebral body heights are maintained. Mild disc space narrowing at C4-5 and C5-6. bone marrow signal is unremarkable. No prevertebral soft tissue swelling. The cervical spinal cord is normal in size and signal characteristics. Cerebellar tonsils are in normal location. Findings by level: C2-C3: No disc herniation. No central canal or foraminal narrowing. C3-C4: No disc herniation. No central canal or foraminal narrowing. C4-C5: Mild disc bulge. Superimposed bhcvo-tn-gesoyfgz right paracentral disc herniation-protrusion type, measures approximately 7 mm TV x 3 mm AP. Disc herniation contacts and mildly flattens the right ventral spinal cord. No underlying spinal cord edema. Mild central canal narrowing. No significant foraminal narrowing. C5-C6: Mild disc bulge. Mild central canal narrowing. No significant foraminal narrowing. C6-C7: No disc herniation. No central canal or foraminal narrowing. C7-T1: No disc herniation. No central canal or foraminal narrowing. In the visualized upper thoracic spine, there is no disc herniation or central canal narrowing. [facility] Interface, Rad In Fu ji Speechq - 10/12/2019 9:18 PM EST EXAMINATION: MR CERVICAL SPINE WITHOUT CONTRAST HISTORY: ORDERING SYSTEM PROVIDED HISTORY: Cervical radiculopathy, TECHNOLOGIST PROVIDED HISTORY: Injury/Trauma Reason for exam: neck pain and stiffness, rt arm pain Encounter Type: Initial Mechanism of injury: fall ORDERING SYSTEM PROVIDED DIAGNOSIS CODES: M54.12 Cervical radiculopathy COMPARISON: None. TECHNIQUE: MR cervical spine without contrast. FINDINGS: Mild straightening of the cervical lordosis. No subluxation. Vertebral body heights are maintained. Mild disc space narrowing at C4-5 and C5-6. bone marrow signal is unremarkable. No prevertebral soft tissue swelling. The cervical spinal cord is normal in size and signal characteristics. Cerebellar tonsils are in normal location. Findings by level: C2-C3: No disc herniation. No central canal or foraminal narrowing. C3-C4: No disc herniation. No central canal or foraminal narrowing. C4-C5: Mild disc bulge. Superimposed xcqjv-en-fctpirgg right paracentral disc herniation-protrusion type, measures approximately 7 mm TV x 3 mm AP. Disc herniation contacts and mildly flattens the right ventral spinal cord. No underlying spinal cord edema. Mild central canal narrowing. No significant foraminal narrowing. C5-C6: Mild disc bulge. Mild central canal narrowing. No significant foraminal narrowing. C6-C7: No disc herniation. No central canal or foraminal narrowing. C7-T1: No disc herniation. No central canal or foraminal narrowing. In the visualized upper thoracic spine, there is no disc herniation or central canal narrowing. IMPRESSION: Examination is somewhat degraded by motion. Qrhlr-da-jnxqsfzd right C4-5 paracentral disc herniation, contacts and mildly flattens the right ventral spinal cord. No underlying spinal cord edema. Mild associated central canal narrowing. C5-6 mild disc bulge with mild central canal narrowing. /[facility] Workstation ID: [id number] [facility] US Abdomen, Limitedon 2017 US Abdomen, Limited Exam Date/Time:03/05/2018 07:30 EDTReason for Exam:RIGHT UPPER QUAD PAIN ATTN:LIVER/GB/PANCREAS / RUQReportPROCEDURE: US Abdomen, Limited, 03/05/2018, 7:04 AMCLINICAL INDICATIONS: Right upper quadrant abdominal pain.COMPARISON: None.TECHNIQUE: Right upper quadrant abdominal sonogram.FINDINGS: Small segment of the body of the pancreas is normal without ductaldilatation. Majority of pancreas of obscured by bowel gas.Increased echogenicity of hepatic parenchyma is noted with diminished acousticpenetration. The visualized contour is smooth. Focal abnormality is notevident. Liver is prominent, right lobe 17 cm.Common bile duct measures 0.5 cm. The gallbladder is normal in size.Gallbladder calculus, wall thickening, or pain in the region is not elicited.Free fluid in the abdomen is not evident.Right kidney is not assessed.IMPRESSION:1. Hepatomegaly with severe hepatic steatosis.2. Pancreas assessment is limited.3. No gallbladder pathology or biliary dilatation. FINAL REPORT Dictated: 03/05/2018 8:45 am Reg Mcdowell MDgned (Electronic Signature): 03/05/2018 8:45 amSigned by: Reg Mcdowell MD Technologist: [facility] Hepatic Function Panelon Albumin mass conc 4.0 g/dL Normal 3.2-5.2 [facility] Comment on above: Performed By: #### H EPF ####Unless otherwise noted, all testing performed by [address] [phone]: [id number] Director: Adolfo Matthew M.D. ALP enzyme act/vol 95 U/L Normal 40-140 [facility] Comment on above: Performed By: #### H EPF ####Unless otherwise noted, all testing performed by [address] [phone]: [id number] Director: Adolfo Matthew M.D. ALT enzyme act/vol 50 U/L Normal 14-65 [facility] Comment on above: Result Comment: This test result might be falsely depressed or falsely elevated onsamples drawn from patients taking Sulfasalazine and Sulfapyridine.Venipuncture should occur prior to taking either of these drugs. Performed By: #### H EPF ####Unless otherwise noted, all testing performed by [address] [phone]: [id number] Director: Adolfo Matthew M.D. AST enzyme act/vol 31 U/L Normal 0-45 [facility] Comment on above: Result Comment: This test result might be falsely depressed or falsely elevated onsamples drawn from patients taking Sulfasalazine and Sulfapyridine.Venipuncture should occur prior to taking either of these drugs. Performed By: #### H EPF ####Unless otherwise noted, all testing performed by [address] [phone]: [id number] Director: Adolfo Matthew M.D. Bilirubin mass conc 0.2 mg/dL Low 0.3-1.2 [facility] Comment on above: Performed By: #### H EPF ####Unless otherwise noted, all testing performed by [address] [phone]: [id number] Director: Adolfo Matthew M.D. Bilirubin.direct mass conc mg/dL Normal 0.0-0.4 [facility] Comment on above: Performed By: #### H EPF ####Unless otherwise noted, all testing performed by [address] [phone]: [id number] Director: Adolfo Matthew M.D. Protein mass conc 7.8 g/dL Normal 6.0-8.0 [facility] Comment on above: Performed By: #### H EPF ####Unless otherwise noted, all testing performed by [address] [phone]: [id number] Director: Adolfo Matthew M.D. Hepatic Function Panelon Alanine aminotransferase (ALT) 42 U/L Normal 14-[address] [facility] Comment on above: Result Comment: This test result might be falsely depressed or falsely elevated onsamples drawn from patients taking Sulfasalazine and Sulfapyridine.Venipuncture should occur prior to taking either of these drugs. Performed By: #### H EPF ####Unless otherwise noted, all testing performed by [address] [phone]: [id number] Director: Adolfo Matthew M.D. Albumin 3.8 g/dL Normal 3.2-5.[address] [facility] Comment on above: Performed By: #### H EPF ####Unless otherwise noted, all testing performed by [place] [phone]: [id number] Director: Adolfo Matthew M.D. Alkaline phosphatase (ALP) 84 U/L Normal 40-[address] [facility] Comment on above: Performed By: #### H EPF ####Unless otherwise noted, all testing performed by [place] [phone]: [id number] Director: Adolfo Matthew M.D. Aspartate aminotransferase (AST) 22 U/L Normal 0-[address] [facility] Comment on above: Result Comment: This test result might be falsely depressed or falsely elevated onsamples drawn from patients taking Sulfasalazine and Sulfapyridine.Venipuncture should occur prior to taking either of these drugs. Performed By: #### H EPF ####Unless otherwise noted, all testing performed by [address] [phone]: [id number] Director: Adolfo Matthew M.D. Bilirubin (total) mg/dL Invalid Interpretation Code 0 - 0.4 mg/dL [facility] Bilirubin mass conc 0.2 mg/dL Low 0.3-1.2 [facility] Comment on above: Performed By: #### H EPF ####Unless otherwise noted, all testing performed by [address] [phone]: [id number] Director: Adolfo Matthew M.D. Bilirubin.direct mass conc mg/dL Normal 0.0-0.4 [facility] Comment on above: Performed By: #### H EPF ####Unless otherwise noted, all testing performed by [address] [phone]: [id number] Director: Adolfo Matthew M.D. Interpretation and review of laboratory results Abnormal Invalid Interpretation Code [facility] Protein 7.8 g/dL Normal 6.0-8.[address] [facility] Comment on above: Performed By: #### H EPF ####Unless otherwise noted, all testing performed by [address] [phone]: [id number] Director: Adolfo Matthew M.D. Urine, bilirubin presence 0.2 mg/dL Low 0.3 - 1.2 mg/dL [facility] Culture,Bacterialon 11-19-20 Culture,Bacterial Test Name: Culture,Bacterial Site: Left Great Toe Culture Status: Final Culture Report: Normal [place] Gram Stain: Many WBC's No Squamous Epithelial Cells Few Gram Positive Cocci Micro Source: Wound Normal [facility] Comment on above: Performed By: #### C ULT ####Unless otherwise noted, all testing performed by [address] [phone]: [id number] Director: Adolfo Vipul, M.D. Operation-Procedureon 2016 Operation-Procedure [facility], [place] [address]ODKQOSWALDO PRITCHARD [facility] [id number] 1985DATE 08/24/2017OPERATIVE REPORT / PROCEDURE NOTESURGEON MICHELLE KAIA VASQUEZhis is op report for [facility].SURGEONRebecjunaid Hollins DPM.PREOPERATIVE DIAGNOSISRecurrent ingrown nail, left hallux medial border.POSTOPERATIVE DIAGNOSISRecurrent ingrown nail, left hallux medial border.PROCEDURELeft hallux medial nail border gann matrixectomy.SPECIMENN ail matrix sent to Pathology for gross examination.ANESTHESIA MAC.HEMOSTASISPenrose drain toe tourniquet.ESTIMATED BLOOD LOSS2 mL.MATERIALS4-0 Monocryl.INJECTABLES4 mL of 1% lidocaine plain preoperatively.ANTIBIO TICSNone.INDICATIONThi s 31-year-old female has a recurrent left hallux medial nail ingrownborder. She has failed multiple procedures in the office for removal of thisnail with recurrent growth, as well as recurrent infections. She has justfinished a course of antibiotics without resolution of the ingrown nail,however resolution of infection. She has failed all conservative treatments inthe office, including phenol matrixectomy, therefore we have decided toproceed to the operating room for total matrixectomy and cauterization of thenail base. Patient agrees to proceed with this procedure.PROCEDUREUpo n entering the preoperative area, the patient was consented for anesthesia.She was previously consented for the procedure. She was then brought back inthe operating room where her name, date of , allergies, correct site andprocedure were verified. Patient was placed on the operating room table inthe usual supine position. Attention was then directed to the left foot inpreparation of a local block. 4 mL of 1% lidocaine plain was administered tothe left hallux. Foot was then prepped and draped in the usual sterilefashion. Next, attention was directed to the left hallux. Nathan drain wasclamped at the proximal aspect of the hallux to be used for hemostasis. Nextusing [place] elevator, the proximal aspect of the nail was freed. No remainingspicule was found. Therefore next using a #15 blade, a linear incision in theshape of an L was made extending proximally from the base of the nail bed.Sharp and blunt dissection was carried down through subcutaneous tissue toexpose the nail matrix. No purulence, signs of infection were noted. No nailspicule was encountered. This was previously removed in the office. Howevernail matrix tissue which was white glistening in appearance was noted. Thistissue was excised sharply using a #15 blade and passed to the back table andsent to pathology as a specimen for gross evaluation. Curette was used toinspect for any spicules and none were found. Site was flushed with copiousamounts of sterile saline and the site where the matrix was removed wascauterized using the Bovie. The site was then irrigated again with copiousamounts of sterile saline. Skin was reapproximated using 4-0 Monocryl in asimple suture technique. The operative site was dressed with Betadine-soakedAdaptic , sterile 4 x 4, and Coban. The tourniquet was released with immediateCFT to the distal left hallux.COMPLICATIONSNo ne.ASSESSMENTThe patient tolerated the procedure and anesthesia well. She was transferredfrom the OR to PACU with vital signs stable and vascular status intact to alldigits of the left foot. Following an anesthesia protocol after a briefperiod of recovery, patient will be transferred home. Patient was givenpostop instructions and will follow up with myself on Thursday. Procedure wasdiscussed in detail with patient and her father, emphasizingreasonable expectations for healing and recovery. Answered all questions tothe patient's satisfaction. She will follow up as scheduled on Thursday.ENRIQUE VERDE 08/24/2017 13:32 [id number] 08/24/2017 14:03 RCI/MODLElectronically Signed By Michelle Hollins DPM on 25 Aug 2017 01:24:09 GMT Normal [facility] SURGon 08-24-2017 Body mass index (BMI) [Ratio] Name: OSWALDO MOREL FResubmission due to incomplete transmission of the original reportSource Skin, Nail Matrix, Left Hallux Clinical History Left Great Toenail Ingrown Diagnosis Fibrovascular tissue with mild chronic inflammation and focal granulation tissue formation. Gross Description The specimen received in formalin is a white-pink fragment measuring 0.5 x 0.4 x 0.3 cm. Bisected and totally submitted in one cassette. DS/arj (ICT/aryisel) Electronically Signed By Raulito Brsicoe DO , Pathologist (Case signed 08/26/2017) Normal [facility] Basic Metabolic Panelon - Calcium 9.8 mg/dL Normal 8.4-10.[address] [facility] Comment on above: Performed By: #### C BCDIF, CHEM8 ####Unless otherwise noted, all testing performed by [address] [phone]: [id number] Director: Adolfo Matthew M.D. Chloride 103 mmol/L Normal 98-[address] [facility] Comment on above: Performed By: #### C BCDIF, CHEM8 ####Unless otherwise noted, all testing performed by [address] [phone]: [id number] Director: Adolfo Matthew M.D. CO2 25 mmol/L Normal 21-[address] [facility] Comment on above: Performed By: #### C BCDIF, CHEM8 ####Unless otherwise noted, all testing performed by [address] [phone]: [id number] Director: Adolfo Matthew M.D. Creatinine 0.70 mg/dL Normal 0.40-1.[address] [facility] Comment on above: Performed By: #### C BCDIF, CHEM8 ####Unless otherwise noted, all testing performed by [address] [phone]: [id number] Director: Adolfo Matthew M.D. eGFR (black) mL/min/{1.73_m2} Normal [facility] Comment on above: Result Comment: Afri can German GFR Calc Performed By: #### C BECKA CHEM8 ####Unless otherwise noted, all testing performed by [address] [phone]: [id number] Director: Adolfo Matthew M.D. eGFR (non-black) mL/min/{1.73_m2} Normal [facility] Comment on above: Result Comment: Non- GFR CalceGFR is an estimated Glomerular Filtration Rate based on the valueof the patient's serum creatinine. In outpatients, eGFR should be usedas a helpful tool in screening for CKD. In inpatients or patients withacute renal failure, eGFR represents the GFR at the moment of the drawand should be used with caution. Performed By: #### C BECKA CHEM8 ####Unless otherwise noted, all testing performed by [address] [phone]: [id number] Director: Adolfo Matthew M.D. Glucose 92 mg/dL Invalid Interpretation Code 70 - 99 mg/dL [facility] Glucose mass conc 92 mg/dL Normal 70-99 [facility] Comment on above: Result Comment: This test result might be falsely depressed or falsely elevated onsamples drawn from patients taking Sulfasalazine and Sulfapyridine.Venipuncture should occur prior to taking either of these drugs. Performed By: #### C BECKA, CHEM8 ####Unless otherwise noted, all testing performed by [address] [phone]: [id number] Director: Adolfo Matthew M.D. Potassium 4.4 mmol/L Normal 3.5-5.[address] [facility] Comment on above: Result Comment: mode rate hemolysis, result may be falsely increased. Performed By: #### C BCDIF, CHEM8 ####Unless otherwise noted, all testing performed by [address] [phone]: [id number] Director: Adolfo Matthew M.D. Sodium 136 mmol/L Normal 135-[address] [facility] Comment on above: Performed By: #### C BCDIF, CHEM8 ####Unless otherwise noted, all testing performed by [place] [phone]: [id number] Director: Adolfo Matthew M.D. Urea nitrogen 10 mg/dL Normal 8-[address] [facility] Comment on above: Performed By: #### C BCDIF, CHEM8 ####Unless otherwise noted, all testing performed by [place] [phone]: [id number] Director: Adolfo Matthew M.D. CBC and Differentialon 08-18 Basophils 0.8 % Invalid Interpretation Code [facility] Basophils 0.1 K/mcL Invalid Interpretation Code 0 - 0.[address] [facility] Eosinophils 0.2 K/mcL Invalid Interpretation Code 0 - 0.[address] [facility] Erythrocytes (RBC) 4.88 M/mcL Invalid Interpretation Code 3.7 - 5.[address] [facility] Hematocrit (HCT) 44.0 % Normal 34.4-44.8 [facility] Comment on above: Performed By: #### C BCDIF, CHEM8 ####Unless otherwise noted, all testing performed by [address] [phone]: [id number] Director: Adolfo Matthew M.D. Hemoglobin (HGB) 14.8 g/dL Normal 11.6-15.4 [facility] Comment on above: Performed By: #### C BCDIF, CHEM8 ####Unless otherwise noted, all testing performed by [place] [phone]: [id number] Director: Adolfo Matthew M.D. Lymphocytes 1.8 K/mcL Invalid Interpretation Code 1.0 - 3.[address] [facility] MCH 30.4 pg Normal 27.9-33.[address] [facility] Comment on above: Performed By: #### C BCDIF, CHEM8 ####Unless otherwise noted, all testing performed by [place] [phone]: [id number] Director: Adolfo Matthew M.D. MCHC 33.8 g/dL Normal 33.1-35.[address] [facility] Comment on above: Performed By: #### C BCDIF, CHEM8 ####Unless otherwise noted, all testing performed by [place] [phone]: [id number] Director: Adolfo Matthew M.D. MCV 90 fL Invalid Interpretation Code 82.6 - 98.[address] [facility] Monocytes 0.6 K/mcL Invalid Interpretation Code 0.1 - 0.[address] [facility] Neutrophils 6.7 K/mcL Invalid Interpretation Code 1.2 - 6.[address] [facility] Platelet mean volume (PMV) 7.7 fL Normal 7.0-10.[address] [facility] Comment on above: Performed By: #### C BCDIF, CHEM8 ####Unless otherwise noted, all testing performed by [address] [phone]: [id number] Director: Adolfo Matthew M.D. Platelets 375 K/mcL Invalid Interpretation Code 162 - [address] [facility] RDW-CA 13.3 % Normal 10.0-14.[address] [facility] Comment on above: Performed By: #### C BECKA, CHEM8 ####Unless otherwise noted, all testing performed by [address] [phone]: [id number] Director: Adolfo Matthew M.D. Segmented Neut 71.6 % Invalid Interpretation Code [facility] T8 suppressor/100 cells 1.6 10*3/uL Invalid Interpretation Code [facility] T8 suppressor/100 cells 19.2 10*3/uL Invalid Interpretation Code [facility] T8 suppressor/100 cells 6.8 10*3/uL Invalid Interpretation Code [facility] WBC (Leukocytes) 9.4 K/mcL Invalid Interpretation Code 3.4 - 10.[address] [facility] CBC with Diffon 08-18-2017 Basophils Auto #/vol (Bld) 0.1 K/mcL Normal 0-0.2 [facility] Comment on above: Performed By: #### C BECKA, CHEM8 ####Unless otherwise noted, all testing performed by [address] [id number]: [id number] Director: Adolfo Matthew M.D. Basophils/100 WBC Auto (Bld) 0.8 % Normal [facility] Comment on above: Performed By: #### C BECKA, CHEM8 ####Unless otherwise noted, all testing performed by [address] [id number]: [id number] Director: Adolfo Matthew M.D. Eosinophils Auto #/vol (Bld) 0.2 K/mcL Normal 0-0.5 [facility] Comment on above: Performed By: #### C BCDIF, CHEM8 ####Unless otherwise noted, all testing performed by [address] [id number]: [id number] Director: Adolfo Matthew M.D. Eosinophils/100 WBC Auto (Bld) 1.6 % Normal [facility] Comment on above: Performed By: #### C BCDIF, CHEM8 ####Unless otherwise noted, all testing performed by [address] [id number]: [id number] Director: Adolfo Matthew M.D. Lymphocytes Auto #/vol (Bld) 1.8 K/mcL Normal 1.0-3.7 [facility] Comment on above: Performed By: #### C BCDIF, CHEM8 ####Unless otherwise noted, all testing performed by [address] [id number]: [id number] Director: Adolfo Matthew M.D. Lymphocytes/100 WBC Auto (Bld) 19.2 % Normal [facility] Comment on above: Performed By: #### C BCDIF, CHEM8 ####Unless otherwise noted, all testing performed by [address] [phone]: [id number] Director: Adolfo Matthew M.D. MCV Auto Entitic volume (RBC) 90.0 fL Normal 82.6-98.9 [facility] Comment on above: Performed By: #### C BCDIF, CHEM8 ####Unless otherwise noted, all testing performed by [address], [place] [id number]: [id number] Director: Adolfo Matthew M.D. Monocytes Auto #/vol (Bld) 0.6 K/mcL Normal 0.1-0.6 [facility] Comment on above: Performed By: #### C BCDIF, CHEM8 ####Unless otherwise noted, all testing performed by [address] [id number]: [id number] Director: Adolfo Matthew M.D. Monocytes/100 WBC Auto (Bld) 6.8 % Normal [facility] Comment on above: Performed By: #### C BCDIF, CHEM8 ####Unless otherwise noted, all testing performed by [place] [phone]: [id number] Director: Adolfo Matthew M.D. Neutrophils Auto #/vol (Bld) 6.7 K/mcL Normal 1.2-6.9 [facility] Comment on above: Performed By: #### C BCDIF, CHEM8 ####Unless otherwise noted, all testing performed by [address] [id number]: [id number] Director: Adolfo Matthew M.D. Platelets Auto #/vol (Bld) 375 K/mcL Normal 162-402 [facility] Comment on above: Performed By: #### C BCDIF, CHEM8 ####Unless otherwise noted, all testing performed by [address] [id number]: [id number] Director: Adolfo Matthew M.D. RBC Auto #/vol (Bld) 4.88 M/mcL Normal 3.7-5.0 [facility] Comment on above: Performed By: #### C BCDIF, CHEM8 ####Unless otherwise noted, all testing performed by [address] [id number]: [id number] Director: Adolfo Matthew M.D. Segmented Neut % 71.6 % Normal [facility] Comment on above: Performed By: #### C BCDIF, CHEM8 ####Unless otherwise noted, all testing performed by [address] [id number]: [id number] Director: Adolfo Matthew M.D. WBC Auto #/vol (Bld) 9.4 K/mcL Normal 3.4-10.6 [facility] Comment on above: Performed By: #### C BCDIF, CHEM8 ####Unless otherwise noted, all testing performed by [address] [id number]: [id number] Director: Adolfo Matthew M.D. CHEST PA AND LATERALon 08-18 CHEST PA AND LATERAL Final ReportAccession No: [id number] Performed: Aug 18 2017 3:26PMExamination: CHEST PA AND LATERALASTHMA, PRE OP TESTING.CHEST PA AND LATERAL 08/18/2017 3:26 PMComparison: NoneFINDINGS: The cardiomediastinal silhouette and fany are unremarkable. Thelungs are well expanded and clear. There is no pleural effusion orpneumothorax. The visualized osseous structures are unremarkable.IMPRESSIO N: No radiographic evidence of acute cardiopulmonary disease.Interpreting Physician: EMILY ROBERT M.D.Trans: : cc: Normal [facility] Vital Signs Date Time Vital Sign Value Performing Clinician Facility 08-01-2025 09:25-0400 Body height 162.[address] Millicent Cervantes DO Work Phone: [facility] 08-01-2025 09:25-0400 Body mass index (BMI) [Ratio] 42.9 kg/m2 Dr. Millicent Cervantes DO Work Phone: [facility] 08-01-2025 09:25-0400 Body weight 113.[address] Millicent Cervantes DO Work Phone: [facility] 08-01-2025 09:25-0400 Diastolic blood pressure 84 mm[Hg] Dr. Millicent Cervantes DO Work Phone: [facility] 08-01-2025 09:25-0400 Systolic blood pressure 139 mm[Hg] Dr. Millicent Cervantes DO Work Phone: [facility] 06-30-2025 09:23-0400 Body height 162.[address] Millicent Cervantes DO Work Phone: [facility] 06-30-2025 09:23-0400 Body mass index (BMI) [Ratio] 43.2 kg/m2 Dr. Millicent Cervantes DO Work Phone: [facility] 06-30-2025 09:23-0400 Body weight 114.[address] Millicent Cervantes DO Work Phone: [facility] 06-30-2025 09:23-0400 Diastolic blood pressure 88 mm[Hg] Dr. Millicent Cervantes DO Work Phone: [facility] 06-30-2025 09:23-0400 Systolic blood pressure 128 mm[Hg] Dr. Millicent Cervantes DO Work Phone: [facility] 06-06-2025 14:57-0400 Body height 162.6 cm Jesus Alvarez CNP Work Phone: [facility] 06-06-2025 14:57-0400 Body mass index (BMI) [Ratio] 45.32 kg/m2 Jesus Alvarez CNP Work Phone: [facility] 06-06-2025 14:57-0400 Body weight 119.75 kg Jesus Alvarez CNP Work Phone: [facility] 06-06-2025 14:57-0400 Diastolic blood pressure 74 mm[Hg] Jesus Alvarez CNP Work Phone: [facility] 06-06-2025 14:57-0400 Heart rate 85 /min Jesus Alvarez CNP Work Phone: [facility] 06-06-2025 14:57-0400 Respiratory rate 16 /min Jesus Alvarez CNP Work Phone: [facility] 06-06-2025 14:57-0400 SaO2% (BldA) [Mass fraction] 98 % Jesus Alvarez CNP Work Phone: [facility] 06-06-2025 14:57-0400 Systolic blood pressure 126 mm[Hg] Jesus Alvarez CNP Work Phone: [facility] 06-05-2025 15:06-0400 Body mass index (BMI) [Ratio] 45.83 kg/m2 Carmen Mckeon PA-C Work Phone: [facility] 06-05-2025 15:06-0400 Body weight 121.11 kg Carmen NASHC Work Phone: [facility] 06-05-2025 15:06-0400 Diastolic blood pressure 78 mm[Hg] Carmen KIM-C Work Phone: [facility] 06-05-2025 15:06-0400 Heart rate 88 /min Carmen KIM-C Work Phone: [facility] 06-05-2025 15:06-0400 SaO2% (BldA) [Mass fraction] 95 % Carmen KIM-C Work Phone: [facility] 06-05-2025 15:06-0400 Systolic blood pressure 110 mm[Hg] Carmen KIM-C Work Phone: [facility] 05-19-2025 14:19-0400 Body height 162.[address] Millicent Cervantes DO Work Phone: [facility] 05-19-2025 14:19-0400 Body mass index (BMI) [Ratio] 45.5 kg/m2 Dr. Millicent Cervantes DO Work Phone: [facility] 05-19-2025 14:19-0400 Body weight 120.[address] Millicent Cervantes DO Work Phone: [facility] 05-19-2025 14:19-0400 Diastolic blood pressure 81 mm[Hg] Dr. Millicent Cervantes DO Work Phone: [facility] 05-19-2025 14:19-0400 Systolic blood pressure 138 mm[Hg] Dr. Millicent Cervantes DO Work Phone: [facility] 05-10-2025 08:36-0400 Body mass index (BMI) [Ratio] 45.83 kg/m2 Carmen KIM-C Work Phone: [facility] 05-10-2025 08:36-0400 Body weight 121.11 kg Carmen KIM-C Work Phone: [facility] 05-10-2025 08:36-0400 Diastolic blood pressure 111 mm[Hg] Carmen KIM-C Work Phone: [facility] 05-10-2025 08:36-0400 Heart rate 88 /min Carmen KIM-C Work Phone: [facility] 05-10-2025 08:36-0400 SaO2% (BldA) [Mass fraction] 96 % Carmen Mckeon PA-C Work Phone: [facility] 05-10-2025 08:36-0400 Systolic blood pressure 135 mm[Hg] Carmen Mckeon PA-C Work Phone: [facility] 03-24-2025 12:11-0400 Body height 162.[address] Millicent Cervantes DO Work Phone: [facility] 03-24-2025 12:09-0400 Body mass index (BMI) [Ratio] 45.8 kg/m2 Dr. Millicent Cervantes DO Work Phone: [facility] 03-24-2025 12:09-0400 Body weight 121.[address] Millicent Cervantes DO Work Phone: [facility] 03-24-2025 12:09-0400 Diastolic blood pressure 80 mm[Hg] Dr. Millicent Cervantes DO Work Phone: [facility] 03-24-2025 12:09-0400 Systolic blood pressure 129 mm[Hg] Dr. Millicent Cervantes DO Work Phone: [facility] 03-07-2025 15:10-0400 Body height 162.6 cm Jesus Alvarez CNP Work Phone: [facility] 03-07-2025 15:10-0400 Body mass index (BMI) [Ratio] 45.76 kg/m2 Jesus Alvarez CNP Work Phone: [facility] 03-07-2025 15:10-0400 Body weight 120.93 kg Jesus Alvarez CNP Work Phone: [facility] 03-07-2025 15:10-0400 Diastolic blood pressure 74 mm[Hg] Jesus Alvarez CNP Work Phone: [facility] 03-07-2025 15:10-0400 Heart rate 80 /min Jesus Kim VICE [employer]IDENT [employer] Work Phone: [facility] 03-07-2025 15:10-0400 Respiratory rate 16 /min Jesus Alvarez VICE PRESIDENT [employer] Work Phone: [facility] 03-07-2025 15:10-0400 Systolic blood pressure 120 mm[Hg] Jesus Alvarez VICE PRESIDENT [employer] Work Phone: [facility] 12-07-2024 15:20-0500 Body mass index (BMI) [Ratio] 44.66 kg/m2 Carmen Liaoman PA-C Work Phone: [facility] 12-07-2024 15:20-0500 Body weight 118.03 kg Carmen Mckeon PA-C Work Phone: [facility] 12-07-2024 15:20-0500 Diastolic blood pressure 93 mm[Hg] Carmen Liaoman PA-C Work Phone: [facility] 12-07-2024 15:20-0500 Heart rate 104 /min Carmen Mckeon PA-C Work Phone: [facility] 12-07-2024 15:20-0500 SaO2% (BldA) [Mass fraction] 96 % Carmen Liaoman PA-C Work Phone: [facility] 12-07-2024 15:20-0500 Systolic blood pressure 139 mm[Hg] Carmen Mckeon PA-C Work Phone: [facility] 12-06-2024 14:35-0500 Body height 162.6 cm Jesus Alvarez VICE PRESIDENT [employer] Work Phone: [facility] 12-06-2024 14:35-0500 Body mass index (BMI) [Ratio] 44.39 kg/m2 Jesus Alvarez VICE PRESIDENT [employer] Work Phone: [facility] 12-06-2024 14:35-0500 Body weight 117.3 kg Jesus Alvarez VICE PRESIDENT [employer] Work Phone: [facility] 12-06-2024 14:35-0500 Diastolic blood pressure 90 mm[Hg] Jesusluis Alvarez VICE PRESIDENT [employer] Work Phone: [facility] 12-06-2024 14:35-0500 Heart rate 90 /min Jesusluis Alvarez VICE PRESIDENT [employer] Work Phone: [facility] 12-06-2024 14:35-0500 Respiratory rate 16 /min Jesusluis Alvarez VICE PRESIDENT [employer] Work Phone: [facility] 12-06-2024 14:35-0500 Systolic blood pressure 128 mm[Hg] Jesus Kim VICE PRESIDENT [employer] Work Phone: [facility] 12-01-2024 15:52-0500 Body height 162.6 cm Coreen Yolande MEMBER SERVICES COORDINATOR-VICE PRESIDENT [employer] Work Phone: [facility] 12-01-2024 15:52-0500 Body mass index (BMI) [Ratio] 44.97 kg/m2 Coreen Yolande MEMBER SERVICES COORDINATOR-VICE PRESIDENT [employer] Work Phone: [facility] 12-01-2024 15:52-0500 Body weight 118.84 kg Coreen Yolande MEMBER SERVICES COORDINATOR-VICE PRESIDENT [employer] Work Phone: [facility] 12-01-2024 15:52-0500 Diastolic blood pressure 80 mm[Hg] Coreen Yolande MEMBER SERVICES COORDINATOR-VICE PRESIDENT [employer] Work Phone: [facility] 12-01-2024 15:52-0500 Heart rate 90 /min Coreen Yolande MEMBER SERVICES COORDINATOR-VICE PRESIDENT [employer] Work Phone: [facility] 12-01-2024 15:52-0500 Respiratory rate 16 /min Coreen Yolande MEMBER SERVICES COORDINATOR-VICE PRESIDENT [employer] Work Phone: [facility] 12-01-2024 15:52-0500 SaO2% (BldA) [Mass fraction] 95 % Coreen Yolande [employer]BER SERVICES COORDINATOR-VICE PRESIDENT [employer] Work Phone: [facility] Comment on above: RA 12-01-2024 15:52-0500 Systolic blood pressure 118 mm[Hg] Coreen Yolande MEMBER SERVICES COORDINATOR-VICE PRESIDENT [employer] Work Phone: [facility] [employer] [facility] 11-07-2024 13:51-0500 Body height 162.6 cm Omid Coffey VICE PRESIDENT [employer] Work Phone: [facility] 11-07-2024 13:51-0500 Body mass index (BMI) [Ratio] 44.29 kg/m2 Omid Coffey VICE PRESIDENT [employer] Work Phone: [facility] [employer] [facility] 11-07-2024 13:51-0500 Body weight 117.03 kg Omid Coffey VICE PRESIDENT [employer] Work Phone: [facility] 11-07-2024 13:51-0500 Respiratory rate 16 /min Omid Coffey VICE PRESIDENT [employer] Work Phone: [facility] 10-04-2024 08:04-0500 Body mass index (BMI) [Ratio] 44.42 kg/m2 Carmen Mckeon PA-C Work Phone: [facility] 10-04-2024 08:04-0500 Body weight 117.39 kg Carmen Mckeon PA-C Work Phone: [facility] 10-04-2024 08:04-0500 Diastolic blood pressure 116 mm[Hg] Carmen Mckeon PA-C Work Phone: [facility] 10-04-2024 08:04-0500 Heart rate 96 /min Carmen Mckeon PA-C Work Phone: [facility] 10-04-2024 08:04-0500 SaO2% (BldA) [Mass fraction] 98 % Carmen Mckeon PA-C Work Phone: [facility] 10-04-2024 08:04-0500 Systolic blood pressure 154 mm[Hg] Carmen Mckeon PA-C Work Phone: [facility] 09-24-2024 11:59-0400 Body height 162.6 cm Noemi Lobito MEMBER SERVICES COORDINATOR-VICE PRESIDENT [employer] Work Phone: [facility] 09-24-2024 11:59-0400 Body mass index (BMI) [Ratio] 44.29 kg/m2 Noemi Robin APRN-VICE PRESIDENT [employer] Work Phone: [facility] 09-24-2024 11:59-0400 Body temperature 98.2 [degF] Noemi Robin APRN-VICE PRESIDENT [employer] Work Phone: [facility] 09-24-2024 11:59-0400 Body weight 117.03 kg Noemi Robin APRN-VICE PRESIDENT [employer] Work Phone: [facility] 09-24-2024 11:59-0400 Diastolic blood pressure 84 mm[Hg] Noemi Robin APRN-VICE PRESIDENT [employer] Work Phone: [facility] 09-24-2024 11:59-0400 Heart rate 89 /min Noemi Robin APRN-VICE PRESIDENT [employer] Work Phone: [facility] 09-24-2024 11:59-0400 Respiratory rate 16 /min Noemi Robin APRN-VICE PRESIDENT [employer] Work Phone: [facility] 09-24-2024 11:59-0400 SaO2% (BldA) [Mass fraction] 98 % Noemi Robin APRN-VICE PRESIDENT [employer] Work Phone: [facility] 09-24-2024 11:59-0400 Systolic blood pressure 132 mm[Hg] Noemi Robin APRN-VICE PRESIDENT [employer] Work Phone: [facility] 09-02-2024 17:51-0400 Body height 162.6 cm Shanice Berger APRN-VICE PRESIDENT [employer] Work Phone: [facility] 09-02-2024 17:51-0400 Body mass index (BMI) [Ratio] 44.8 kg/m2 Shanice Berger MEMBER SERVICES COORDINATOR-VICE PRESIDENT [employer] Work Phone: [facility] 09-02-2024 17:51-0400 Body temperature 98.29 [degF] Shanice Berger APRN-VICE PRESIDENT [employer] Work Phone: [facility] 09-02-2024 17:51-0400 Body weight 118.39 kg Shanice Berger MEMBER SERVICES COORDINATOR-VICE PRESIDENT [employer] Work Phone: [facility] [employer] [facility] 09-02-2024 17:51-0400 Diastolic blood pressure 75 mm[Hg] Shanice Hernandezol MEMBER SERVICES COORDINATOR-VICE PRESIDENT [employer] Work Phone: [facility] 09-02-2024 17:51-0400 Heart rate 85 /min Shanice Hernandezol MEMBER SERVICES COORDINATOR-VICE PRESIDENT [employer] Work Phone: [facility] 09-02-2024 17:51-0400 Respiratory rate 17 /min Shanice Hernandezol MEMBER SERVICES COORDINATOR-VICE PRESIDENT [employer] Work Phone: [facility] 09-02-2024 17:51-0400 SaO2% (BldA) [Mass fraction] 97 % Shanice Hernandezol MEMBER SERVICES COORDINATOR-VICE PRESIDENT [employer] Work Phone: [facility] 09-02-2024 17:51-0400 Systolic blood pressure 139 mm[Hg] Shanice Hernandezol MEMBER SERVICES COORDINATOR-VICE PRESIDENT [employer] Work Phone: [facility] 09-02-2024 14:06-0400 Body height 162.6 cm Jesus Alvarez VICE PRESIDENT [employer] Work Phone: [facility] [employer] [facility] 09-02-2024 14:06-0400 Body mass index (BMI) [Ratio] 45.12 kg/m2 Jesus Kim VICE PRESIDENT [employer] Work Phone: [facility] [employer] [facility] 09-02-2024 14:06-0400 Body weight 119.3 kg Jesus Kim VICE PRESIDENT [employer] Work Phone: [facility] [employer] [facility] 09-02-2024 14:06-0400 Diastolic blood pressure 74 mm[Hg] Jesus Kim VICE PRESIDENT [employer] [facility] 09-02-2024 14:06-0400 Heart rate 86 /min Jesus Kim VICE PRESIDENT [employer] Work Phone: [facility] 09-02-2024 14:06-0400 SaO2% (BldA) [Mass fraction] 97 % Jesus Kim VICE PRESIDENT [employer] Work Phone: [facility] 09-02-2024 14:06-0400 Systolic blood pressure 142 mm[Hg] Jesus Alvarez VICE PRESIDENT [employer] Work Phone: [facility] 08-08-2024 14:29-0400 Body height 162.6 cm Robson Parnell MD Work Phone: [facility] 08-08-2024 14:29-0400 Body mass index (BMI) [Ratio] 45.49 kg/m2 Robson Parnell MD Work Phone: [facility] 08-08-2024 14:29-0400 Body weight 120.2 kg Robson Parnell MD Work Phone: [facility] 08-08-2024 14:29-0400 Respiratory rate 16 /min Robson Parnell MD Work Phone: [facility] 07-21-2024 17:32-0400 Body height 162.6 cm Noemi Robin MEMBER SERVICES COORDINATOR-VICE PRESIDENT [employer] Work Phone: [facility] 07-21-2024 17:32-0400 Body mass index (BMI) [Ratio] 45.49 kg/m2 Noemi Robin MEMBER SERVICES COORDINATOR-VICE PRESIDENT [employer] Work Phone: [facility] 07-21-2024 17:32-0400 Body temperature 97.9 [degF] Noemi Robin MEMBER SERVICES COORDINATOR-VICE PRESIDENT [employer] Work Phone: [facility] 07-21-2024 17:32-0400 Body weight 120.2 kg Noemi Robin MEMBER SERVICES COORDINATOR-VICE PRESIDENT [employer] Work Phone: [facility] 07-21-2024 17:32-0400 Diastolic blood pressure 88 mm[Hg] Noemi Robin MEMBER SERVICES COORDINATOR-VICE PRESIDENT [employer] Work Phone: [facility] 07-21-2024 17:32-0400 Heart rate 99 /min Noemi Robin MEMBER SERVICES COORDINATOR-VICE PRESIDENT [employer] Work Phone: [facility] 07-21-2024 17:32-0400 Respiratory rate 16 /min Noemi Robin MEMBER SERVICES COORDINATOR-VICE PRESIDENT [employer] Work Phone: [facility] 07-21-2024 17:32-0400 SaO2% (BldA) [Mass fraction] 95 % Noemi Robin MEMBER SERVICES COORDINATOR-VICE PRESIDENT [employer] Work Phone: [facility] 07-21-2024 17:32-0400 Systolic blood pressure 138 mm[Hg] Noemi Robin MEMBER SERVICES COORDINATOR-VICE PRESIDENT [employer] Work Phone: [facility] 07-08-2024 20:32-0400 SaO2% (BldA) [Mass fraction] 95 % Carmen Mckeon PA-C Work Phone: [facility] 07-08-2024 20:31-0400 Body temperature 98.2 [degF] Carmen Mckeon PA-C Work Phone: [facility] 07-08-2024 20:31-0400 Diastolic blood pressure 65 mm[Hg] Carmen Mckeon PA-C Work Phone: [facility] 07-08-2024 20:31-0400 Heart rate 87 /min Carmen Mckeon PA-C Work Phone: [facility] 07-08-2024 20:31-0400 Respiratory rate 17 /min Carmen Mckeon PA-C Work Phone: [facility] 07-08-2024 20:31-0400 Systolic blood pressure 146 mm[Hg] Carmen Mckeon PA-C Work Phone: [facility] 07-08-2024 19:16-0400 Body height 162.6 cm Carmen Mckeon PA-C Work Phone: [facility] 05-24-2024 09:11-0400 Body height 162.6 cm Brit García DPM Work Phone: [facility] 05-24-2024 09:11-0400 Body mass index (BMI) [Ratio] 47.38 kg/m2 Brit García DPM Work Phone: [facility] 05-24-2024 09:11-0400 Body weight 125.19 kg Brit García DPM Work Phone: [facility] 05-24-2024 09:11-0400 Diastolic blood pressure 80 mm[Hg] Brit García DPM Work Phone: [facility] 05-24-2024 09:11-0400 Heart rate 91 /min Brit García DPM Work Phone: [facility] 05-24-2024 09:11-0400 Systolic blood pressure 132 mm[Hg] Brit Pricenirmala DPM Work Phone: [facility] 05-17-2024 13:52-0400 Diastolic blood pressure 85 mm[Hg] Carmen Mckeon PA-C Work Phone: [facility] 05-17-2024 13:52-0400 Heart rate 86 /min Carmen Mckeon PA-C Work Phone: [facility] 05-17-2024 13:52-0400 Systolic blood pressure 136 mm[Hg] Carmen Mckeon PA-C Work Phone: [facility] 05-16-2024 13:46-0400 Body height 162.6 cm Robson Parnell MD Work Phone: [facility] 05-16-2024 13:46-0400 Body mass index (BMI) [Ratio] 47.44 kg/m2 Robson Parnell MD Work Phone: [facility] 05-16-2024 13:46-0400 Body weight 125.37 kg Robson Parnell MD Work Phone: [facility] 05-16-2024 13:46-0400 Respiratory rate 18 /min Robson Parnell MD Work Phone: [facility] 04-29-2024 15:14-0400 Body height 162.6 cm Jesus Alvarez CNP Work Phone: [facility] 04-29-2024 15:14-0400 Body mass index (BMI) [Ratio] 47.42 kg/m2 Jesusluis Alvarez VICE PRESIDENT [employer] Work Phone: [facility] 04-29-2024 15:14-0400 Body weight 125.37 kg Jesusluis Alvarez VICE PRESIDENT [employer] Work Phone: [facility] 04-29-2024 15:14-0400 Diastolic blood pressure 68 mm[Hg] Jesusluis Alvarez VICE PRESIDENT [employer] Work Phone: [facility] 04-29-2024 15:14-0400 Heart rate 64 /min Jesus Kim VICE PRESIDENT [employer] Work Phone: [facility] 04-29-2024 15:14-0400 SaO2% (BldA) [Mass fraction] 97 % Jesusluis Alvarez VICE PRESIDENT [employer] Work Phone: [facility] 04-29-2024 15:14-0400 Systolic blood pressure 132 mm[Hg] Jesusluis Alvarez VICE PRESIDENT [employer] Work Phone: [facility] 04-14-2024 08:09-0400 Body height 162.6 cm Jesusluis Alvarez VICE PRESIDENT [employer] Work Phone: [facility] 04-14-2024 08:09-0400 Body mass index (BMI) [Ratio] 49.24 kg/m2 Jesusluis Alvarez VICE PRESIDENT [employer] Work Phone: [facility] 04-14-2024 08:09-0400 Body weight 130.18 kg Jesusluis Alvarez VICE PRESIDENT [employer] Work Phone: [facility] 04-14-2024 08:09-0400 Diastolic blood pressure 82 mm[Hg] Jesus Kim VICE PRESIDENT [employer] Work Phone: [facility] 04-14-2024 08:09-0400 Heart rate 84 /min Jesusluis Alvarez VICE PRESIDENT [employer] Work Phone: [facility] 04-14-2024 08:09-0400 SaO2% (BldA) [Mass fraction] 98 % Jesus Kim VICE PRESIDENT [employer] Work Phone: [facility] 04-14-2024 08:09-0400 Systolic blood pressure 140 mm[Hg] Jesus Alvarez MARBELLA Work Phone: [facility] 03-28-2024 09:05-0400 Body height 162.6 cm Robson Parnell MD Work Phone: [facility] 03-28-2024 09:05-0400 Body mass index (BMI) [Ratio] 46.69 kg/m2 Robson Parnell MD Work Phone: [facility] 03-28-2024 09:05-0400 Body weight 123.38 kg Robson Parnell MD Work Phone: [facility] 03-28-2024 09:05-0400 Respiratory rate 18 /min Robson Parnell MD Work Phone: [facility] 03-17-2024 13:50-0400 Diastolic blood pressure 84 mm[Hg] Robson Parnell MD Work Phone: [facility] 03-17-2024 13:50-0400 Heart rate 81 /min Robson Parnell MD Work Phone: [facility] 03-17-2024 13:50-0400 Respiratory rate 20 /min Robson Parnell MD Work Phone: [facility] 03-17-2024 13:50-0400 SaO2% (BldA) [Mass fraction] 97 % Robson Parnell MD Work Phone: [facility] 03-17-2024 13:50-0400 Systolic blood pressure 173 mm[Hg] Robson Parnell MD Work Phone: [facility] 03-17-2024 12:30-0400 Body temperature 97 [degF] Robson Parnell MD Work Phone: [facility] 03-17-2024 09:11-0400 Body height 162.6 cm Robson Parnell MD Work Phone: [facility] 03-04-2024 13:38-0400 Body height 162.6 cm Aaron Colbert DO Work Phone: [facility] 03-04-2024 13:38-0400 Body mass index (BMI) [Ratio] 49.57 kg/m2 Aaron Colbert DO Work Phone: [facility] 03-04-2024 13:38-0400 Body weight 131 kg Aaron Colbert DO Work Phone: [facility] 03-04-2024 13:38-0400 Diastolic blood pressure 82 mm[Hg] Aaron Colbert DO Work Phone: [facility] 03-04-2024 13:38-0400 Heart rate 85 /min Aaron Colbert DO Work Phone: [facility] 03-04-2024 13:38-0400 SaO2% (BldA) [Mass fraction] 95 % Aaron Colbert DO Work Phone: [facility] 03-04-2024 13:38-0400 Systolic blood pressure 140 mm[Hg] Aaron Colbert DO Work Phone: [facility] 02-24-2024 14:21-0400 Body height 162.6 cm Elisabethshubham Farfanton MEMBER SERVICES COORDINATOR-VICE PRESIDENT [employer] Work Phone: [facility] 02-24-2024 14:21-0400 Body mass index (BMI) [Ratio] 48.41 kg/m2 Elisabeth Gregg MEMBER SERVICES COORDINATOR-VICE PRESIDENT [employer] Work Phone: [facility] 02-24-2024 14:21-0400 Body weight 127.91 kg Elisabeth Gregg MEMBER SERVICES COORDINATOR-VICE PRESIDENT [employer] Work Phone: [facility] 02-24-2024 14:21-0400 Respiratory rate 17 /min Elisabeth Gregg MEMBER SERVICES COORDINATOR-VICE PRESIDENT [employer] Work Phone: [facility] 01-29-2024 13:59-0500 Body height 162.6 cm Elisabeth Gregg MEMBER SERVICES COORDINATOR-VICE PRESIDENT [employer] Work Phone: [facility] 01-29-2024 13:59-0500 Body mass index (BMI) [Ratio] 48.41 kg/m2 Elisabeth Gregg MEMBER SERVICES COORDINATOR-VICE PRESIDENT [employer] Work Phone: [facility] [employer] [facility] 01-29-2024 13:59-0500 Body weight 127.91 kg Elisabeth Gregg MEMBER SERVICES COORDINATOR-VICE PRESIDENT [employer] Work Phone: [facility] [employer] [facility] 01-29-2024 13:59-0500 Respiratory rate 16 /min Elisabeth Gregg MEMBER SERVICES COORDINATOR-VICE PRESIDENT [employer] Work Phone: [facility] 01-21-2024 15:20-0500 Body height 162.6 cm Robson Genao MD Work Phone: [facility] [employer] [facility] 01-21-2024 15:20-0500 Body mass index (BMI) [Ratio] 48.41 kg/m2 Robson Genao MD Work Phone: [employer] [facility] 01-21-2024 15:20-0500 Body temperature 98.29 [degF] Robson Genao MD Work Phone: [employer] [facility] 01-21-2024 15:20-0500 Body weight 127.91 kg [facility]son [facility]ao MD [facility] 01-21-2024 14:02-0500 Diastolic blood pressure 97 mm[Hg] Carmen Mckeon PA-C Work Phone: [facility] 01-21-2024 14:02-0500 Heart rate 72 /min Carmen Mckeon PA-C Work Phone: [facility] 01-21-2024 14:02-0500 SaO2% (BldA) [Mass fraction] 98 % Carmen KIM-C Work Phone: [facility] 01-21-2024 14:02-0500 Systolic blood pressure 125 mm[Hg] Carmen KIM-C Work Phone: [facility] 01-17-2024 15:25-0500 Diastolic blood pressure 78 mm[Hg] Carmen KIM-C Work Phone: [facility] 01-17-2024 15:25-0500 Heart rate 85 /min Carmen Mckeon PA-C Work Phone: [facility] 01-17-2024 15:25-0500 Respiratory rate 16 /min Carmen Liaoman PA-C Work Phone: [facility] 01-17-2024 15:25-0500 SaO2% (BldA) [Mass fraction] 98 % Carmen Falluffman PA-C Work Phone: [facility] 01-17-2024 15:25-0500 Systolic blood pressure 140 mm[Hg] Carmen Mike PA-C Work Phone: [facility] 01-17-2024 12:45-0500 Body temperature 98.4 [degF] Carmen Mike PA-C Work Phone: [facility] 01-17-2024 12:14-0500 Body height 162.6 cm Lidia Reagan MEMBER SERVICES COORDINATOR-VICE PRESIDENT [employer] Work Phone: [facility] 01-17-2024 12:14-0500 Body mass index (BMI) [Ratio] 48.49 kg/m2 Lidia Reagan MEMBER SERVICES COORDINATOR-VICE PRESIDENT [employer] Work Phone: [facility] 01-17-2024 12:14-0500 Body temperature 98.4 [degF] Lidia Reagan APRN-VICE PRESIDENT [employer] Work Phone: [facility] 01-17-2024 12:14-0500 Body weight 128.14 kg Lidia Reagan MEMBER SERVICES COORDINATOR-VICE PRESIDENT [employer] Work Phone: [facility] 01-17-2024 12:14-0500 Diastolic blood pressure 83 mm[Hg] Lidia Reagan APRN-VICE PRESIDENT [employer] Work Phone: [facility] 01-17-2024 12:14-0500 Heart rate 82 /min Lidia Reagan APRN-VICE PRESIDENT [employer] Work Phone: [facility] 01-17-2024 12:14-0500 Respiratory rate 21 /min Lidia Reagan MEMBER SERVICES COORDINATOR-VICE PRESIDENT [employer] Work Phone: [facility] 01-17-2024 12:14-0500 SaO2% (BldA) [Mass fraction] 99 % Lidia Reagan MEMBER SERVICES COORDINATOR-VICE PRESIDENT [employer] Work Phone: [facility] 01-17-2024 12:14-0500 Systolic blood pressure 148 mm[Hg] Lidia Reagan MEMBER SERVICES COORDINATOR-VICE PRESIDENT [employer] Work Phone: [facility] 12-07-2023 16:58-0500 Body height 162.6 cm Gaurang Crowley MEMBER SERVICES COORDINATOR-VICE PRESIDENT [employer] Work Phone: [facility] 12-07-2023 16:58-0500 Body mass index (BMI) [Ratio] 46.35 kg/m2 Gaurang Crowley MEMBER SERVICES COORDINATOR-VICE PRESIDENT [employer] Work Phone: [facility] 12-07-2023 16:58-0500 Body temperature 97.11 [degF] Gaurang Crenshawhop MEMBER SERVICES COORDINATOR-VICE PRESIDENT [employer] Work Phone: [facility] 12-07-2023 16:58-0500 Body weight 122.47 kg Gaurang Crowley MEMBER SERVICES COORDINATOR-VICE PRESIDENT [employer] Work Phone: [facility] 12-07-2023 16:58-0500 Diastolic blood pressure 84 mm[Hg] Gaurang Crenshawhop MEMBER SERVICES COORDINATOR-VICE PRESIDENT [employer] Work Phone: [facility] 12-07-2023 16:58-0500 Heart rate 96 /min Gaurang Crenshawhop MEMBER SERVICES COORDINATOR-VICE PRESIDENT [employer] Work Phone: [facility] 12-07-2023 16:58-0500 Respiratory rate 16 /min Gaurang Crenshawhop MEMBER SERVICES COORDINATOR-VICE PRESIDENT [employer] Work Phone: [facility] 12-07-2023 16:58-0500 SaO2% (BldA) [Mass fraction] 94 % Gaurang Crenshawhop MEMBER SERVICES COORDINATOR-VICE PRESIDENT [employer] Work Phone: [facility] 12-07-2023 16:58-0500 Systolic blood pressure 133 mm[Hg] Gaurang Crowley MEMBER SERVICES COORDINATOR-VICE PRESIDENT [employer] Work Phone: [facility] 11-28-2023 15:43-0500 Body height 162.6 cm Carmen Falluffman PA-C Work Phone: [facility] 11-28-2023 15:43-0500 Body mass index (BMI) [Ratio] 46.69 kg/m2 Carmen Mike PA-C Work Phone: [facility] 11-28-2023 15:43-0500 Body temperature 97.3 [degF] Carmen Mike PA-C Work Phone: [facility] 11-28-2023 15:43-0500 Body weight 123.38 kg Carmen Mike PA-C Work Phone: [facility] 11-28-2023 15:43-0500 Diastolic blood pressure 77 mm[Hg] Carmen Mckeon PA-C Work Phone: [facility] 11-28-2023 15:43-0500 Heart rate 79 /min Carmen Falluffman PA-C Work Phone: [facility] 11-28-2023 15:43-0500 Respiratory rate 16 /min Carmen Falluffman PA-C Work Phone: [facility] 11-28-2023 15:43-0500 SaO2% (BldA) [Mass fraction] 98 % Carmen Mike PA-C Work Phone: [facility] 11-28-2023 15:43-0500 Systolic blood pressure 168 mm[Hg] Carmen Mike PA-C Work Phone: [facility] 11-16-2023 13:07-0500 Body height 162.6 cm Carmen Mike PA-C Work Phone: [facility] 11-16-2023 13:07-0500 Body mass index (BMI) [Ratio] 47.2 kg/m2 Carmen Mckeon PA-C Work Phone: [facility] 11-16-2023 13:07-0500 Body weight 124.74 kg Carmen Falluffman PA-C Work Phone: [facility] 11-16-2023 13:07-0500 Diastolic blood pressure 103 mm[Hg] Carmen Falluffman PA-C Work Phone: [facility] 11-16-2023 13:07-0500 Heart rate 87 /min Carmen Falluffman PA-C Work Phone: [facility] 11-16-2023 13:07-0500 Systolic blood pressure 166 mm[Hg] Carmen Falluffman PA-C Work Phone: [facility] 09-21-2023 16:55-0400 Body height 162.6 cm Lidia Reagan MEMBER SERVICES COORDINATOR-VICE PRESIDENT [employer] Work Phone: [facility] 09-21-2023 16:55-0400 Body mass index (BMI) [Ratio] 46.52 kg/m2 Lidiavalentin Reagan MEMBER SERVICES COORDINATOR-VICE PRESIDENT [employer] Work Phone: [facility] 09-21-2023 16:55-0400 Body temperature 98.01 [degF] Lidiavalentin Reagan MEMBER SERVICES COORDINATOR-VICE PRESIDENT [employer] Work Phone: [facility] 09-21-2023 16:55-0400 Body weight 122.92 kg Lidiavlaentin Reagan MEMBER SERVICES COORDINATOR-VICE PRESIDENT [employer] Work Phone: [facility] 09-21-2023 16:55-0400 Diastolic blood pressure 57 mm[Hg] Lidia Reagan MEMBER SERVICES COORDINATOR-VICE PRESIDENT [employer] Work Phone: [facility] 09-21-2023 16:55-0400 Heart rate 72 /min Lidia Reagan MEMBER SERVICES COORDINATOR-VICE PRESIDENT [employer] Work Phone: [facility] 09-21-2023 16:55-0400 Respiratory rate 18 /min Lidia Reagan MEMBER SERVICES COORDINATOR-VICE PRESIDENT [employer] Work Phone: [facility] 09-21-2023 16:55-0400 SaO2% (BldA) [Mass fraction] 98 % Lidia Reagan MEMBER SERVICES COORDINATOR-VICE PRESIDENT [employer] Work Phone: [facility] 09-21-2023 16:55-0400 Systolic blood pressure 119 mm[Hg] Lidia Reagan MEMBER SERVICES COORDINATOR-VICE PRESIDENT [employer] Work Phone: [facility] 06-09-2023 17:17-0400 Body height 162.6 cm Lidia Reagan MEMBER SERVICES COORDINATOR-VICE PRESIDENT [employer] Work Phone: [facility] 06-09-2023 17:17-0400 Body mass index (BMI) [Ratio] 46.12 kg/m2 Lidia Reagan MEMBER SERVICES COORDINATOR-VICE PRESIDENT [employer] Work Phone: [facility] 06-09-2023 17:17-0400 Body temperature 97.59 [degF] Lidia Reagan MEMBER SERVICES COORDINATOR-VICE PRESIDENT [employer] Work Phone: [facility] 06-09-2023 17:17-0400 Body weight 121.88 kg Lidia Reagan MEMBER SERVICES COORDINATOR-VICE PRESIDENT [employer] Work Phone: [facility] 06-09-2023 17:17-0400 Diastolic blood pressure 84 mm[Hg] Lidia Reagan MEMBER SERVICES COORDINATOR-VICE PRESIDENT [employer] Work Phone: [facility] 06-09-2023 17:17-0400 Heart rate 102 /min Lidia Reagan MEMBER SERVICES COORDINATOR-VICE PRESIDENT [employer] Work Phone: [facility] 06-09-2023 17:17-0400 Respiratory rate 16 /min Lidia Reagan MEMBER SERVICES COORDINATOR-VICE PRESIDENT [employer] Work Phone: [facility] 06-09-2023 17:17-0400 SaO2% (BldA) [Mass fraction] 96 % Lidia Reagan MEMBER SERVICES COORDINATOR-VICE PRESIDENT [employer] Work Phone: [facility] 06-09-2023 17:17-0400 Systolic blood pressure 150 mm[Hg] Lidia Reagan MEMBER SERVICES COORDINATOR-VICE PRESIDENT [employer] Work Phone: [facility] 04-04-2023 17:11-0400 Body height 162.6 cm Noemi Robin MEMBER SERVICES COORDINATOR-VICE PRESIDENT [employer] Work Phone: [facility] 04-04-2023 17:11-0400 Body mass index (BMI) [Ratio] 47.2 kg/m2 Noemi Robin APRN-VICE PRESIDENT [employer] Work Phone: [facility] 04-04-2023 17:11-0400 Body temperature 97.39 [degF] Noemi Robin APRN-VICE PRESIDENT [employer] Work Phone: [facility] 04-04-2023 17:11-0400 Body weight 124.74 kg Noemi Robin APRN-VICE PRESIDENT [employer] Work Phone: [facility] 04-04-2023 17:11-0400 Diastolic blood pressure 79 mm[Hg] Noemi Robin MEMBER SERVICES COORDINATOR-VICE PRESIDENT [employer] Work Phone: [facility] 04-04-2023 17:11-0400 Heart rate 93 /min Noemi Robin APRN-VICE PRESIDENT [employer] Work Phone: [facility] 04-04-2023 17:11-0400 Respiratory rate 18 /min Noemi Robin APRN-VICE PRESIDENT [employer] Work Phone: [facility] 04-04-2023 17:11-0400 SaO2% (BldA) [Mass fraction] 97 % Noemi Robin APRN-VICE PRESIDENT [employer] Work Phone: [facility] 04-04-2023 17:11-0400 Systolic blood pressure 124 mm[Hg] Noemi Robin APRN-VICE PRESIDENT [employer] Work Phone: [facility] 02-24-2023 19:02-0400 Body height 162.6 cm Hannah Talbot APRN-VICE PRESIDENT [employer] Work Phone: [facility] 02-24-2023 19:02-0400 Body mass index (BMI) [Ratio] 47.2 kg/m2 Hannah Antione MEMBER SERVICES COORDINATOR-VICE PRESIDENT [employer] Work Phone: [facility] 02-24-2023 19:02-0400 Body temperature 97.7 [degF] Hannah Talbot MEMBER SERVICES COORDINATOR-VICE PRESIDENT [employer] Work Phone: [facility] 02-24-2023 19:02-0400 Body weight 124.74 kg Hannah Talbot APRN-VICE PRESIDENT [employer] Work Phone: [facility] 02-24-2023 19:02-0400 Diastolic blood pressure 78 mm[Hg] Hannah Talbot MEMBER SERVICES COORDINATOR-VICE PRESIDENT [employer] Work Phone: [facility] 02-24-2023 19:02-0400 Heart rate 91 /min Hannah Talbot MEMBER SERVICES COORDINATOR-VICE PRESIDENT [employer] Work Phone: [facility] 02-24-2023 19:02-0400 Respiratory rate 18 /min Hannah Talbot MEMBER SERVICES COORDINATOR-VICE PRESIDENT [employer] Work Phone: [facility] 02-24-2023 19:02-0400 SaO2% (BldA) [Mass fraction] 97 % Hannah Talbot APRN-VICE PRESIDENT [employer] Work Phone: [facility] 02-24-2023 19:02-0400 Systolic blood pressure 143 mm[Hg] Hannah Talbot APRN-VICE PRESIDENT [employer] Work Phone: [facility] 01-30-2023 14:31-0500 Body height 162.6 cm Elisabeth Gregg VICE PRESIDENT [employer] Work Phone: [facility] 01-30-2023 14:31-0500 Body mass index (BMI) [Ratio] 47.55 kg/m2 Elisabeth Farfanton VICE PRESIDENT [employer] Work Phone: [facility] 01-30-2023 14:31-0500 Body weight 125.65 kg Elisabeth Farfanton VICE PRESIDENT [employer] Work Phone: [facility] 01-30-2023 14:31-0500 Respiratory rate 18 /min Elisabeth Farfanton VICE PRESIDENT [employer] Work Phone: [facility] 11-20-2022 16:05-0500 Body height 162.6 cm Coreen Yolande MEMBER SERVICES COORDINATOR-VICE PRESIDENT [employer] Work Phone: [facility] 11-20-2022 16:05-0500 Body mass index (BMI) [Ratio] 47.55 kg/m2 Coreen Yolande MEMBER SERVICES COORDINATOR-VICE PRESIDENT [employer] Work Phone: [facility] 11-20-2022 16:05-0500 Body weight 125.65 kg Coreen Yolande MEMBER SERVICES COORDINATOR-VICE PRESIDENT [employer] Work [facility] 11-20-2022 16:05-0500 Diastolic blood pressure 88 mm[Hg] Coreen Yolande MEMBER SERVICES COORDINATOR-VICE PRESIDENT [employer] Work Phone: [facility] 11-20-2022 16:05-0500 Heart rate 100 /min Coreen Yolande MEMBER SERVICES COORDINATOR-VICE PRESIDENT [employer] Work Phone: [facility] 11-20-2022 16:05-0500 Respiratory rate 16 /min Coreen Yolande MEMBER SERVICES COORDINATOR-VICE PRESIDENT [employer] Work Phone: [facility] 11-20-2022 16:05-0500 SaO2% (BldA) [Mass fraction] 97 % Coreen Yolande MEMBER SERVICES COORDINATOR-VICE PRESIDENT [employer] Work Phone: [facility] 11-20-2022 16:05-0500 Systolic blood pressure 132 mm[Hg] Coreen Yolande MEMBER SERVICES COORDINATOR-VICE PRESIDENT [employer] Work Phone: [facility] 07-23-2022 10:54-0400 Body height 162.6 cm Antwon Fanello VICE PRESIDENT [employer] Work Phone: [facility] 07-23-2022 10:54-0400 Body mass index (BMI) [Ratio] 42.91 kg/m2 Antwon Fanello VICE PRESIDENT [employer] Work Phone: [facility] 07-23-2022 10:54-0400 Body weight 113.4 kg Antwon Fanello VICE PRESIDENT [employer] Work Phone: [facility] 06-23-2022 15:05-0400 Body height 162.6 cm Antwon Fanello VICE PRESIDENT [employer] Work Phone: [facility] 06-23-2022 15:05-0400 Body mass index (BMI) [Ratio] 42.91 kg/m2 Antwon Fanello VICE PRESIDENT [employer] Work Phone: [facility] 07-25-2022 15:05-0400 Body weight 113.4 kg Antwon Martin VICE PRESIDENT [employer] Work Phone: [facility] 01-28-2022 14:28-0500 Body height 165.1 cm Elisabeth Gregg VICE PRESIDENT [employer] Work Phone: [facility] 01-28-2022 14:28-0500 Body mass index (BMI) [Ratio] 44.6 kg/m2 Elisabeth Gregg VICE PRESIDENT [employer] Work Phone: [facility] 01-28-2022 14:28-0500 Body weight 121.56 kg Elisabeth Gregg VICE PRESIDENT [employer] Work Phone: [facility] 01-28-2022 14:28-0500 Respiratory rate 16 /min Elisabeth Gregg VICE PRESIDENT [employer] Work Phone: [facility] 10-18-2021 16:37-0500 Body height 165.1 cm Krystal Mcclain VICE PRESIDENT [employer] Work Phone: [facility] 10-18-2021 16:37-0500 Body mass index (BMI) [Ratio] 44.51 kg/m2 Krystal Mcclain VICE PRESIDENT [employer] Work Phone: [facility] 10-18-2021 16:37-0500 Body temperature 98.91 [degF] Krystal Mcclain CNP Work Phone: [facility] 10-18-2021 16:37-0500 Body weight 121.34 kg Krystal Mcclain CNP Work Phone: [facility] 10-18-2021 16:37-0500 Diastolic blood pressure 89 mm[Hg] Krystal Mcclain VICE PRESIDENT [employer] Work Phone: [facility] 10-18-2021 16:37-0500 Heart rate 96 /min Krystal Mcclain VICE PRESIDENT [employer] Work Phone: [facility] 10-18-2021 16:37-0500 Respiratory rate 20 /min Krystal Mcclain VICE PRESIDENT [employer] Work Phone: [facility] 10-18-2021 16:37-0500 SaO2% (BldA) [Mass fraction] 96 % Krystal Mcclain VICE PRESIDENT [employer] Work Phone: [facility] [employer] [facility] 10-18-2021 16:37-0500 Systolic blood pressure 137 mm[Hg] Krystal Mcclain VICE PRESIDENT [employer] Work Phone: [facility] 07-25-2021 14:54-0400 Body height 162.6 cm Coreen Yolande MEMBER SERVICES COORDINATOR-VICE PRESIDENT [employer] Work Phone: [facility] 07-25-2021 14:54-0400 Body mass index (BMI) [Ratio] 43.84 kg/m2 Coreen Yolande MEMBER SERVICES COORDINATOR-VICE PRESIDENT [employer] Work Phone: [facility] 07-25-2021 14:54-0400 Body weight 115.85 kg Coreen Yolande MEMBER SERVICES COORDINATOR-VICE PRESIDENT [employer] Work Phone: [facility] 07-25-2021 14:54-0400 Diastolic blood pressure 86 mm[Hg] Coreen Yolande MEMBER SERVICES COORDINATOR-VICE PRESIDENT [employer] Work Phone: [facility] 07-25-2021 14:54-0400 Heart rate 85 /min Coreen Yolande MEMBER SERVICES COORDINATOR-VICE PRESIDENT [employer] Work Phone: [facility] 07-25-2021 14:54-0400 Respiratory rate 18 /min Coreen Yolande MEMBER SERVICES COORDINATOR-VICE PRESIDENT [employer] Work Phone: [facility] 07-25-2021 14:54-0400 SaO2% (BldA) [Mass fraction] 98 % Coreen Yolande MEMBER SERVICES COORDINATOR-VICE PRESIDENT [employer] Work Phone: [facility] 07-25-2021 14:54-0400 Systolic blood pressure 128 mm[Hg] Coreen Yolande MEMBER SERVICES COORDINATOR-VICE PRESIDENT [employer] Work Phone: [facility] 07-24-2021 14:45-0400 Body height 162.6 cm Elisabeth Farfanton VICE PRESIDENT [employer] Work Phone: [facility] 07-24-2021 14:45-0400 Body mass index (BMI) [Ratio] 43.26 kg/m2 Elisabethshubham Farfanton VICE PRESIDENT [employer] Work Phone: [facility] 07-24-2021 14:45-0400 Body weight 114.31 kg Elisabeth Gregg VICE PRESIDENT [employer] Work Phone: [facility] 07-24-2021 14:45-0400 Respiratory rate 18 /min Elisabeth Gregg VICE PRESIDENT [employer] Work Phone: [facility] 07-24-2021 14:45-0400 SaO2% (BldA) [Mass fraction] 98 % Elisabeth Gregg VICE PRESIDENT [employer] Work Phone: [facility] 06-13-2021 12:30-0400 Diastolic blood pressure 77 mm[Hg] Juan Dominique MD Work Phone: [facility] 06-13-2021 12:30-0400 Heart rate 78 /min Juan Dominique MD Work Phone: [facility] 06-13-2021 12:30-0400 Respiratory rate 18 /min Juan Dominique MD Work Phone: [facility] 06-13-2021 12:30-0400 SaO2% (BldA) [Mass fraction] 97 % Juan Dominique MD Work Phone: [facility] 06-13-2021 12:30-0400 Systolic blood pressure 129 mm[Hg] Juan Dominique MD Work Phone: [facility] 06-13-2021 11:54-0400 Body temperature 97.2 [degF] Juan Dominique MD Work Phone: [facility] 06-13-2021 09:26-0400 Body height 162.6 cm Juan Dominique MD Work Phone: [facility] 06-13-2021 09:26-0400 Body mass index (BMI) [Ratio] 43.26 kg/m2 Juan Dominique MD Work Phone: [facility] 06-13-2021 09:26-0400 Body weight 114.31 kg Juan Dominique MD Work Phone: [facility] 06-04-2021 12:19-0400 Body height 162.6 cm Juan Dominique MD Work Phone: [facility] 06-04-2021 12:19-0400 Body mass index (BMI) [Ratio] 44.11 kg/m2 Juan Dominique MD Work Phone: [facility] 06-04-2021 12:19-0400 Body weight 116.57 kg Juan Dominique MD Work Phone: [facility] 06-04-2021 12:19-0400 Respiratory rate 16 /min Juan Dominique MD Work Phone: [facility] 05-31-2021 18:57-0400 Diastolic blood pressure 76 mm[Hg] Favio Kaiser DO Work Phone: [facility] 05-31-2021 18:57-0400 Heart rate 75 /min Favio Kaiser DO Work Phone: [facility] 05-31-2021 18:57-0400 Respiratory rate 16 /min Favio Kaiser DO Work Phone: [facility] 05-31-2021 18:57-0400 SaO2% (BldA) [Mass fraction] 97 % Favio Kaiser DO Work Phone: [facility] 05-31-2021 18:57-0400 Systolic blood pressure 150 mm[Hg] Favio Menaton DO Work Phone: [facility] 05-31-2021 16:28-0400 Body height 162.6 cm Favio [place] DO Work Phone: [facility] 05-31-2021 16:26-0400 Body temperature 97.81 [degF] Favio Menaton DO Work Phone: [facility] 05-27-2021 12:07-0400 Body height 162.6 cm Lula KIM Work Phone: [facility] 05-27-2021 12:07-0400 Body mass index (BMI) [Ratio] 43.63 kg/m2 Lula KIM Work Phone: [facility] 05-27-2021 12:07-0400 Body temperature 97.7 [degF] Lula High PA Work Phone: [facility] 05-27-2021 12:07-0400 Body weight 115.3 kg Lula High PA Work Phone: [facility] 05-27-2021 12:07-0400 Diastolic blood pressure 86 mm[Hg] Lula Sanchezner PA Work Phone: [facility] 05-27-2021 12:07-0400 Heart rate 86 /min Lula Sanchezner PA Work Phone: [facility] 05-27-2021 12:07-0400 Respiratory rate 16 /min Lula Sanchezner PA Work Phone: [facility] 05-27-2021 12:07-0400 SaO2% (BldA) [Mass fraction] 98 % Lula High PA Work Phone: [facility] 05-27-2021 12:07-0400 Systolic blood pressure 141 mm[Hg] Lula High PA Work Phone: [facility] 12-02-2020 12:39-0500 BMI (Body Mass Index) 45.38 kg/m2 [facility] 12-02-2020 12:39-0500 Body Temperature 97.59 [degF] [facility] 12-02-2020 12:39-0500 Body weight 119.93 kg [facility] 12-02-2020 12:39-0500 BP Diastolic 93 mm[Hg] [facility] 12-02-2020 12:39-0500 BP Systolic 144 mm[Hg] [facility] 12-02-2020 12:39-0500 Height 162.6 cm [facility] 12-02-2020 12:39-0500 Pulse (Heart Rate) 85 /min [facility] 12-02-2020 12:39-0500 Pulse Oximetry 95 % Brit [facility] 12-02-2020 12:39-0500 Respiratory Rate 18 /min Brit [facility] 10-12-2020 16:09-0500 BMI (Body Mass Index) 44.77 kg/m2 [facility] 10-12-2020 16:09-0500 Body Temperature 98.2 [degF] [facility] 10-12-2020 16:09-0500 Body weight 118.3 kg [facility] 10-12-2020 16:09-0500 BP Diastolic 69 mm[Hg] [facility] 10-12-2020 16:09-0500 BP Systolic 115 mm[Hg] [facility] 10-12-2020 16:09-0500 Height 162.6 cm [facility] 10-12-2020 16:09-0500 Pulse (Heart Rate) 84 /min [facility] 10-12-2020 16:09-0500 Pulse Oximetry 97 % [facility] 10-12-2020 16:09-0500 Respiratory Rate 16 /min [facility] 07-11-2020 17:45-0400 BMI (Body Mass Index) 44.42 kg/m2 [facility] 07-11-2020 17:45-0400 Body Temperature 98.01 [degF] [facility] 07-11-2020 17:45-0400 Body weight 117.39 kg [facility] 07-11-2020 17:45-0400 BP Diastolic 97 mm[Hg] [facility] 07-11-2020 17:45-0400 BP Systolic 137 mm[Hg] [facility] 07-11-2020 17:45-0400 Height 162.6 cm [facility] 07-11-2020 17:45-0400 Pulse (Heart Rate) 96 /min [facility] 07-11-2020 17:45-0400 Pulse Oximetry 96 % [facility] 07-11-2020 17:45-0400 Respiratory Rate 16 /min Lula High [facility] 05-15-2020 17:29-0400 BMI (Body Mass Index) 44.23 kg/m2 [facility] 05-15-2020 17:29-0400 Body Temperature 97.9 [degF] [facility] 05-15-2020 17:29-0400 Body weight 116.89 kg [facility] 05-15-2020 17:29-0400 BP Diastolic 76 mm[Hg] [facility] 05-15-2020 17:29-0400 BP Systolic 126 mm[Hg] [facility] 05-15-2020 17:29-0400 Height 162.6 cm [facility] 05-15-2020 17:29-0400 Pulse (Heart Rate) 73 /min [facility] 05-15-2020 17:29-0400 Pulse Oximetry 98 % [facility] 05-15-2020 17:29-0400 Respiratory Rate 16 /min [facility] 05-09-2020 15:16-0400 BMI (Body Mass Index) 42.91 kg/m2 [place] 05-09-2020 15:16-0400 Body weight 113.4 kg [place] 05-09-2020 15:16-0400 BP Diastolic 74 mm[Hg] [place] 05-09-2020 15:16-0400 BP Systolic 109 mm[Hg] [place] 05-09-2020 15:16-0400 Height 162.6 cm [place] 05-09-2020 15:16-0400 Pulse (Heart Rate) 76 /min [place] 02-11-2020 11:43-0400 BMI (Body Mass Index) 45.83 kg/m2 [facility] 02-11-2020 11:43-0400 Body Temperature 98.71 [degF] [facility] 02-11-2020 11:43-0400 Body weight 121.11 kg [facility] 02-11-2020 11:43-0400 BP Diastolic 75 mm[Hg] [facility] 02-11-2020 11:43-0400 BP Systolic 147 mm[Hg] [facility] 02-11-2020 11:43-0400 Height 162.6 cm [facility] 02-11-2020 11:43-0400 Pulse (Heart Rate) 97 /min [facility] 02-11-2020 11:43-0400 Pulse Oximetry 96 % [facility] 02-11-2020 11:43-0400 Respiratory Rate 16 /min [facility] 12-27-2019 11:17-0500 BMI (Body Mass Index) 42.91 kg/m2 [place] 12-27-2019 11:17-0500 Body weight 113.4 kg [place] 12-27-2019 11:17-0500 BP Diastolic 85 mm[Hg] [place] 12-27-2019 11:17-0500 BP Systolic 125 mm[Hg] [place] 12-27-2019 11:17-0500 Height 162.6 cm [place] 12-27-2019 11:17-0500 Pulse (Heart Rate) 94 /min [place] 12-20-2019 20:30-0500 BP Diastolic 85 mm[Hg] [facility] 12-20-2019 20:30-0500 BP Systolic 141 mm[Hg] [facility] 12-20-2019 20:30-0500 Pulse (Heart Rate) 71 /min [facility] 12-20-2019 20:30-0500 Pulse Oximetry 97 % [facility] 12-20-2019 18:13-0500 BMI (Body Mass Index) 42.91 kg/m2 [facility] 12-20-2019 18:13-0500 Body Temperature 97.3 [degF] [facility] 12-20-2019 18:13-0500 Body weight 113.4 kg [facility] 12-20-2019 18:13-0500 Height 162.6 cm [facility] 12-20-2019 18:13-0500 Respiratory Rate 16 /min [facility] 12-20-2019 13:36-0500 BMI (Body Mass Index) 42.91 kg/m2 [facility] 12-20-2019 13:36-0500 Body Temperature 98.2 [degF] [facility] 12-20-2019 13:36-0500 Body weight 113.4 kg [facility] 12-20-2019 13:36-0500 BP Diastolic 77 mm[Hg] [facility] 12-20-2019 13:36-0500 BP Systolic 111 mm[Hg] [facility] 12-20-2019 13:36-0500 Height 162.6 cm [facility] 12-20-2019 13:36-0500 Pulse (Heart Rate) 99 /min [facility] 12-20-2019 13:36-0500 Pulse Oximetry 97 % [facility] 12-20-2019 13:36-0500 Respiratory Rate 16 /min [facility] 12-14-2019 16:01-0500 BMI (Body Mass Index) 42.05 kg/m2 [place] 12-14-2019 16:01-0500 Body weight 111.13 kg [place] 12-14-2019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 on above: Chronic left SI join t pain Start: 07-10-2022 Documentation procedure Shakir zhu LPN [facility] Start: 06-23-2022 End: 06-23-2022 Office outpatient visit 15 minutes Antwon Sharon Webbjose TYSON Work Phone: [facility] Sports Medicine Comment on above: Chronic left SI join t pain (Primary Dx) Start: 06-19-2022 Orders Only Antwon sofia VICE PRESIDENT [employer] Work Phone: [facility] Phys[facility] Comment on above: Pain (Primary Dx) Start: 06-12-2022 Refill Antwon sofia VICE PRESIDENT [employer] Work Phone: [facility] Sports Medicine Start: 04-16-2022 End: 04-16-2022 Clinical Support Antwon Martin VICE PRESIDENT [employer] Work Phone: 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 Start: 04-10-2022 Documentation procedure Shakir zhu LPN [facility] Start: 01-28-2022 End: 01-28-2022 Subsequent hospital visit by physician Elisabeth Gregg VICE PRESIDENT [employer] Work Phone: [facility] Diagnostic Radiology Comment on above: Arrived Start: 01-28-2022 End: 01-28-2022 Office outpatient visit 15 minutes Elisabeth Gregg VICE PRESIDENT [employer] Work Phone: [facility] Urology Comment on above: Kidney stone (Primar y Dx) Start: 01-20-2022 End: 01-20-2022 Clinical Support Antwon Martin VICE PRESIDENT [employer] Work Phone: [facility] Orthopedic [facility] Medicine Comment on above: Cervical radiculopat hy (Primary Dx) Start: 10-18-2021 End: 10-18-2021 Office outpatient visit 15 minutes Krystal Mcclain VICE PRESIDENT [employer] [facility] Comment on above: Acute upper respirat ory infection (Primary Dx) Start: 10-16-2021 End: 10-16-2021 Clinical Support Antwon Martin CNP Work Phone: [facility] Sports Medicine Comment on above: Cervical radiculopat hy (Primary Dx) Start: 10-03-2021 Documentation procedure Shakir M Bisho p [employer] [facility] Phys[facility] Start: 07-25-2021 End: 07-25-2021 Office outpatient new 30 minutes Coreenrashida Lanier MEMBER SERVICES COORDINATOR-VICE PRESIDENT [employer] Work Phone: [facility]monary [facility] Comment on above: Sleep apnea, unspeci fied type (Primary Dx); Snoring; Insomnia, unspecified type; Morning headache; Difficulty concentrating; Fatigue, unspecified type; Hypersomnia, unspecified; Bruxism Start: 07-24-2021 End: 07-24-2021 Office outpatient visit 15 minutes Elisabeth Gregg VICE PRESIDENT [employer] Work Phone: [facility] Urology Comment on above: Ureteral stone (Prim betty Dx); Kidney stone Start: 06-13-2021 End: 06-13-2021 Patient encounter status Juan Dominique MD Work Phone: [facility] Periop Start: 06-13-2021 End: 06-13-2021 Subsequent hospital visit by physician Juan Dominique MD Work Phone: [facility] Peri Comment on above: Kidney stone Start: 06-04-2021 End: 06-04-2021 Office outpatient new 45 minutes Juan Dominique MD Work Phone: [facility] Urology Comment on above: Kidney stone (Primar y Dx) Start: 05-31-2021 End: 05-31-2021 Emergency department patient visit Favio Kaiser DO Work Phone: [facility] Emergency Department Start: 05-27-2021 End: 05-27-2021 Office outpatient visit 15 minutes Lula KIM [facility] Comment on above: Acute cystitis with hematuria (Primary Dx); Dysuria Start: 04-15-2021 End: 04-15-2021 Telemedicine consultation with patient Aaron Leigh MD Work Phone: [facility] Nutritional Services Comment on above: Type 2 diabetes erica itus without complication, without long- term current use of insulin (HCC) Start: 03-20-2021 End: 03-20-2021 Telemedicine consultation with patient Aaron Turnerronaldo OLEA Work Phone: [facility] Nutritional Services Comment on above: Type 2 diabetes erica itus without complication, without long- term current use of insulin (HCC) Start: 02-06-2021 End: 02-06-2021 Orders Only Simran Paul Work Phone: [facility] Start: 02-04-2021 End: 02-04-2021 Telemedicine consultation with patient Aaron Leigh Work Phone: [facility] Nutritional Services Comment on above: Diabetes mellitus wi thout complication (HCC) Start: 01-07-2021 End: 01-07-2021 Telemedicine consultation with patient Aaron Leigh Work Phone: [facility] Nutritional Services Comment on above: Diabetes mellitus wi thout complication (HCC) Start: 12-10-2020 End: 12-10-2020 Telemedicine consultation with patient Kendra Harry [facility] Nutritional Services Comment on above: Diabetes mellitus wi thout complication (HCC) Start: 12-05-2020 End: 12-05-2020 Clinical Support Antwon Martin Work Phone: [facility] Sports Medicine Comment on above: Cervical dystonia (P rimary Dx) Start: 12-02-2020 End: 12-02-2020 Office outpatient visit 15 minutes Brit Sapp [facility] Comment on above: Strain of lumbar reg ion, initial encounter (Primary Dx) Start: 10-12-2020 End: 10-12-2020 Office outpatient visit 15 minutes Shanice Berger [facility] Comment on above: Pierced ear infectio n, left, initial encounter (Primary Dx) Start: 09-12-2020 End: 09-12-2020 Patient encounter procedure Antwon Martin Work Phone: [facility] Sports Medicine Comment on above: Cervical radiculopat hy (Primary Dx); Acute pain of right shoulder Start: 07-11-2020 End: 07-11-2020 Office outpatient visit 25 minutes Lula High Work Phone: [facility] Comment on above: Paronychia of right index finger (Primary Dx) Start: 05-15-2020 End: 05-15-2020 Office outpatient visit 25 minutes Noemi R Robin Work Phone: [facility] Comment on above: Pierced ear infectio n, right, initial encounter (Primary Dx) Start: 05-09-2020 End: 05-09-2020 Patient encounter procedure Anwton Martin Work Phone: [facility] Sports Medicine Comment on above: Cervical radiculopat hy (Primary Dx) Start: 03-09-2020 End: 03-09-2020 Subsequent hospital visit by physician Guillermo Khalil Work Phone: [facility] Echocardiography Comment on above: Arrived Start: 02-11-2020 End: 02-11-2020 Office outpatient new 30 minutes Hannah Talbot Work Phone: [facility] Comment on above: Acute URI (Primary D x) Start: 01-02-2020 End: 01-02-2020 Subsequent hospital visit by physician Aaron Leigh Work Phone: [facility] Vascular Phys[facility] Comment on above: Palpitation Start: 12-27-2019 End: 12-27-2019 Patient encounter procedure Antwon Martin Work Phone: [facility] Sports Medicine Comment on above: Cervical dystonia (P rimary Dx) Start: 12-20-2019 End: 12-20-2019 Emergency department patient visit Jose Erasmo Mott Work Phone: [facility] Emergency Department Comment on above: Chest wall pain (Babita annette Dx); Hypertension, unspecified type Start: 12-20-2019 End: 12-24-2019 Patient encounter procedure CHRISTIANA YOUNG [facility] Start: 12-20-2019 End: 12-20-2019 Office outpatient visit 25 minutes Christiana Young Work Phone: [facility] Comment on above: Nausea (Primary Dx); Chronic scapular pain; Acute right-sided back pain, unspecified back location; Hypercholesterolemia; Hypertriglyceridemia Start: 12-15-2019 End: 12-15-2019 Documentation procedure Antwon Webbjose Work Phone: [facility] Start: 12-14-2019 End: 12-14-2019 Office outpatient visit 15 minutes Antwon Herrera Ondina Work Phone: [facility] Medicine Comment on above: Cervical dystonia (P rimary Dx) Start: 12-13-2019 End: 12-13-2019 Patient encounter procedure Antwon Herrera Ondina Work Phone: [facility] Comment on above: Cervical radiculopat hy (Primary Dx) Start: 12-08-2019 End: 12-08-2019 Patient encounter procedure AARON LEIGH [facility] Start: 12-08-2019 End: 12-08-2019 Office outpatient visit 15 minutes Meghna Santos Work Phone: [facility] Comment on above: Chronic right-sided thoracic back pain (Primary Dx) Start: 12-08-2019 End: 12-08-2019 Patient encounter procedure Antwon Herrera Ondina Work Phone: [facility] Comment on above: Cervical radiculopat hy (Primary Dx) Start: 12-06-2019 End: 12-06-2019 Patient encounter procedure Antwon Fallronna Martin Work Phone: [facility] Comment on above: Cervical radiculopat hy (Primary Dx) Start: 12-02-2019 End: 12-02-2019 Patient encounter procedure Antwonrandy Martin Work Phone: [facility] Comment on above: Cervical radiculopat hy (Primary Dx) Start: 11-28-2019 End: 11-28-2019 Patient encounter procedure Antwon Fallronna Martin Work Phone: [facility] Comment on above: Cervical radiculopat hy (Primary Dx) Start: 11-24-2019 End: 11-24-2019 Patient encounter procedure Antwon Martin Work Phone: [facility] Comment on above: Cervical radiculopat hy (Primary Dx) Start: 11-21-2019 End: 11-21-2019 Patient encounter procedure Antwon Martin Work Phone: [facility] Comment on above: Cervical radiculopat hy (Primary Dx) Start: 11-12-2019 End: 11-12-2019 Patient encounter procedure Antwon Martin Work Phone: [facility] Comment on above: Cervical radiculopat hy Start: 10-19-2019 End: 10-19-2019 Office outpatient visit 15 minutes Antwonrandy Webbjose Work Phone: [facility] Comment on above: Acute pain of right shoulder (Primary Dx); Osteoarthritis of spine with radiculopathy, cervical region Start: 10-12-2019 End: 10-12-2019 Subsequent hospital visit by physician Antwon Martin Work Phone: [facility] Comment on above: Cervical radiculopat hy Start: 10-07-2019 End: 10-07-2019 Patient encounter procedure Antwon Martin Work Phone: [facility] Comment on above: Acute pain of right shoulder (Primary Dx) Start: 10-05-2019 End: 10-05-2019 Patient encounter procedure Antwon Webbjose Work Phone: [facility] Comment on above: Acute pain of right shoulder (Primary Dx) Start: 10-03-2019 End: 10-03-2019 Patient encounter procedure Antwon Herrera Ondina Work Phone: [facility] Comment on above: Acute pain of right shoulder (Primary Dx) Start: 09-30-2019 End: 09-30-2019 Patient encounter procedure Antwon Herrera Ondina Work Phone: [facility] Comment on above: Acute pain of right shoulder (Primary Dx) Start: 09-28-2019 End: 09-28-2019 Patient encounter procedure Antwon Martin Work Phone: [facility] Comment on above: Acute pain of right shoulder (Primary Dx) Start: 09-28-2019 End: 09-28-2019 Office outpatient visit 10 minutes Antwon Martin Work Phone: [facility] Comment on above: Cervical radiculopat hy (Primary Dx) Start: 09-26-2019 End: 09-26-2019 Patient encounter procedure Antwon Martin Work Phone: [facility] Comment on above: Acute pain of right shoulder (Primary Dx) Start: 09-21-2019 End: 09-21-2019 Patient encounter procedure Antwon Martin Work Phone: [facility] Comment on above: Acute pain of right shoulder (Primary Dx) Start: 09-19-2019 End: 09-19-2019 Patient encounter procedure Antwon Martin Work Phone: [facility] Comment on above: Acute pain of right shoulder (Primary Dx) Start: 09-16-2019 End: 09-16-2019 Patient encounter procedure Antwon Martin Work Phone: [facility] Comment on above: Acute pain of right shoulder (Primary Dx) Start: 09-14-2019 End: 09-14-2019 Patient encounter procedure Antwon Martin Work Phone: [facility] Comment on above: Acute pain of right shoulder (Primary Dx) Start: 09-13-2019 End: 09-13-2019 Patient encounter procedure Williekassandra Kip Arboleda Work Phone: [facility] Comment on above: Cervical radiculopat hy; Chronic right shoulder pain Start: 09-07-2019 End: 09-07-2019 Patient encounter procedure Antwon Matrin Work Phone: [facility] Comment on above: Cervical radiculopat hy; Chronic right shoulder pain Start: 02-05-2019 End: 02-05-2019 Patient encounter procedure AARON LEIGH [facility] Start: 02-05-2019 End: 02-05-2019 Office outpatient visit 15 minutes Mirna Blankenship Work Phone: [facility] Comment on above: Frontal sinusitis, u nspecified chronicity (Primary Dx) Start: 01-20-2019 End: 01-20-2019 Patient encounter procedure PHYSICIAN NO [facility] Start: 01-20-2019 End: 01-20-2019 Office outpatient visit 15 minutes Christiana Morrisn Patience Work Phone: [facility] Comment on above: Acute non-recurrent frontal sinusitis (Primary Dx); Cough Start: 07-30-2018 Patient encounter Aaron Sky cility:[place] Start: 07-30-2018 End: 07-30-2018 Patient encounter Aaron Leigh Work Phone: [facility] Start: 03-22-2018 Patient encounter Aaron Sky cility:[place] Start: 03-22-2018 End: 03-22-2018 Ambulatory Aaron Leigh Work Phone: [facility] Start: 03-05-2018 End: 03-06-2018 [facility] Start: 02-10-2018 Patient encounter Michelle Abdulaziz Burk acility:[place] Start: 12-29-2017 Patient encounter Michelle Abdulaziz Hollins F acility:[place] Start: 12-29-2017 End: 12-29-2017 Ambulatory Michelle Alicia Naponee Work Phone: [facility] Start: 11-18-2017 Patient encounter Michelle C Gurvinder F acility:[place] Start: 11-18-2017 End: 11-18-2017 Ambulatory Michelle Alicia [place] Work Phone: [facility] Start: 08-24-2017 End: 08-24-2017 Patient encounter Michelle Abdulaziz Hollins Facility:[place] Start: 08-18-2017 Patient encounter Michelle C [place]onee F acility:[place] Start: 08-18-2017 End: 08-18-2017 Ambulatory Michelle Hollins Work Phone: [facility] Procedures Date Procedure Procedure Detail Performing Clinician Start: 06-12-2025 Arthrocentesis aspir &/inj major jt/bursa w/o us Antwon Martin CNP Work Phone: Start: 06-06-2025 Continuous glucose m onitoring analysis i&r Jesus Alvarez CNP Work Phone: Start: 05-12-[address] Yisel Cervantes DO Work Phone: Start: 03-30-[address] Yisel Cervantes DO Work Phone: Start: 03-24-2025 Liquid based cervica l cytology screening Dr. Millicent Cervantes DO Work Phone: Comment on above: NEGATIVE FOR INTRAEP ITHELIAL LESION OR MALIGNANCY. This liquid based Th inPrep(R) pap test was screened withthe use of an image guided system. Start: 03-07-2025 Continuous glucose m onitoring analysis i&r Jesus Alvarez CNP Work Phone: Start: 03-06-2025 Arthrocentesis aspir &/inj major jt/bursa w/o us Antwon Martin CNP Work Phone: Start: 01-14-2025 Us retroperitoneal r eal time w/image complete Elisabeth Gregg APRN-VICE PRESIDENT [employer] Work Phone: Start: 12-06-2024 Continuous glucose m onitoring analysis i&r Jesus Alvarez CNP Work Phone: Start: 11-28-2024 Arthrocentesis aspir &/inj major jt/bursa w/o us Antwon Martin CNP Work Phone: Start: 11-07-2024 Urnls dip stick/tabl et rgnt auto w/o microscopy Robson Parnell MD Work Phone: Start: 10-04-2024 Urnls dip stick/tabl et rgnt non-auto w/o micrscp Carmen Mckeon PA-C Work Phone: Start: 09-24-2024 Urnls dip stick/tabl et rgnt auto w/o microscopy Noemi Robin MEMBER SERVICES COORDINATOR-[facility] Work Phone: Start: 09-02-2024 Continuous glucose m onitoring analysis i&r Jesus Alvarez [facility] Work Phone: Start: 08-22-2024 Arthrocentesis aspir &/inj major jt/bursa w/o us Antwon Martin [facility] Work Phone: Start: 08-04-2024 Echo tthrc r-t 2d w/ wo m-mode complete rest&st Guillermo Dina Khalil MD Work Phone: Start: 07-21-2024 Iaadiadoo streptococ cus group a Noemi Robin MEMBER SERVICES COORDINATOR-[facility] Work Phone: Start: 07-08-2024 Radiologic exam chest 2 views Coreymahendra Gordon [facility] Work Phone: Start: 07-08-2024 Basic metabolic pane l calcium total Corey Gordon PLASMA PROCESSING TECHNICIAN Work Phone: Start: 07-08-2024 C-reactive protein Tootiemeghan Aguila Heidi PLASMA PROCESSING TECHNICIAN Work Phone: Start: 07-08-2024 Complete blood count with white cell differential, automated Corey Gordon PLASMA PROCESSING TECHNICIAN Work Phone: Start: 05-16-2024 Urnls dip stick/tabl et rgnt auto w/o microscopy Robson Parnell MD Work Phone: Start: 05-10-2024 End: 05-10-2024 Arthrocentesis aspir&/inj major jt/bursa w/o us Antwon Martin [facility] Work Phone: Start: 04-29-2024 Continuous glucose m onitoring analysis i&r Jesus Alvarez [facility] Work Phone: Start: 04-07-2024 Hepatobil syst imag inc gb w/pharma intervenj Aaron Nelsonol DO Work Phone: Start: 03-28-2024 Cysto w/simple remov al stone & stent Robson Parnell MD Work Phone: Start: 03-17-2024 Gluc bld gluc mntr d ev cleared fda spec home use Robson Parnell MD Work Phone: Start: 03-17-2024 Urine test visual color cmprsn meths Robson Parnell MD Work Phone: Start: 02-24-2024 Ct abdomen & pelvis w/o contrast material Elisabeth Gregg APRN-VICE PRESIDENT [employer] Work Phone: Start: 02-24-2024 Urnls dip stick/tabl et rgnt non-auto w/o micrscp Elisabeth Gregg MEMBER SERVICES COORDINATOR-[employer]ICE PRESIDENT [employer] Work Phone: Start: 02-07-2024 Us abdominal real ti me w/image limited Carmen [facility] Work Phone: Start: 02-03-2024 Arthrocentesis aspir &/inj major jt/bursa w/o us Antwon Martin VICE PRESIDENT [employer] Work Phone: Start: 01-29-2024 Urnls dip stick/tabl et rgnt auto w/o microscopy Elisabeth Gregg MEMBER SERVICES COORDINATOR-VICE PRESIDENT [employer] Work Phone: Start: 01-21-2024 Nasal endoscopy diag nostic uni/bi spx Robson Genao MD Work Phone: Start: 01-17-2024 Us abdominal real ti me w/image limited Gaurang Crowley MEMBER SERVICES COORDINATOR-[employer]ICE [employer]IDENT [employer] Work Phone: Start: 01-17-2024 C-reactive protein Svetlana Crowley MEMBER SERVICES COORDINATOR-VICE PRESIDENT [employer] Work Phone: Start: 01-17-2024 Complete blood count with white cell differential, automated Gaurang Crowley MEMBER SERVICES COORDINATOR-VICE PRESIDENT [employer] Work Phone: Start: 01-17-2024 Comprehensive metabolic panel Gaurang Crowley [facility] Work Phone: Start: 01-17-2024 Urnls dip stick/tabl et rgnt auto w/o microscopy Lidia Burk Merary [facility] Work Phone: Start: 05-25-2023 End: 05-25-2023 Arthrocentesis aspir&/inj major jt/bursa w/o us Antwon Fallronna Martin [facility] Work Phone: Start: 04-04-2023 Urnls dip stick/tabl et rgnt auto w/o microscopy Noemi Robin MEMBER SERVICES COORDINATOR-[facility] Work Phone: Start: 01-30-2023 Urnls dip stick/tabl et rgnt auto w/o microscopy Elisabeth L Gregg [facility] Work Phone: Start: 01-26-2023 Arthrocentesis aspir &/inj major jt/bursa w/o us Antwon Martin [facility] Work Phone: Start: 10-27-2022 Arthrocentesis aspir &/inj major jt/bursa w/o Antwon Sharonronna Martin [facility] Work Phone: Start: 04-16-2022 Arthrocentesis aspir &/inj major jt/bursa w/o Antwon Sharonronna Martin [facility] Work Phone: Start: 01-28-2022 Urnls dip stick/tabl et rgnt auto w/o microscopy Elisabeth L Gregg VICE PRESIDENT [employer] Work Phone: Start: 07-24-2021 Urnls dip stick/tabl et rgnt auto w/o microscopy Elisabeth L Gregg VICE PRESIDENT [employer] Work Phone: Start: 06-13-2021 End: 06-13-2021 Ramesh chorionic elina Sawyer DO Work Phone: Start: 06-04-2021 Urnls dip stick/tabl et rgnt auto w/o microscopy Juan Dominique MD Work Phone: Start: 05-31-2021 Ct abdomen & pelvis w/o contrast material Favio Kaiser DO Work Phone: Start: 05-31-2021 End: 05-31-2021 Culture bacterial quanttative colony count urine Favio Kaiser DO Work Phone: Start: 05-31-2021 Gonadotropin chorion ic qualitative Favio Kaiser DO Work Phone: Start: 05-31-2021 Urinalysis, reagent strip without microscopy Favio Kaiser DO Work Phone: Start: 05-27-2021 Urnls dip stick/tabl et rgnt non-auto w/o micrscp Lula KIM Work Phone: Start: 09-12-2020 Arthrocentesis Antwon Lion Work Phone: Start: 03-09-2020 Electrocardiogram wi th exercise test Guillermo B Durga Work Phone: Start: 12-20-2019 Ethanol [Mass/volume ] in Serum or Plasma Jose Mott Work Phone: Start: 12-20-2019 Choriogonadotropin ( test) [Presence] in Urine Jose Mott Work Phone: Start: 12-20-2019 Drugs of abuse urine screening test Jose Mott Work Phone: Start: 12-20-2019 Urinalysis Jose Mott Work Phone: Start: 12-20-2019 Basic metabolic 1998 panel - Serum or Plasma Jose Mott Work Phone: Start: 12-20-2019 Complete blood count with white cell differential, automated Jose Mott Work Phone: Start: 12-20-2019 Complete blood count with white cell differential, manual Jose Mott Work Phone: Start: 12-20-2019 LAVENDER TOP Jose escoto [employer] Work Phone: Start: 12-20-2019 LIGHT BLUE TOP Jose bradford [employer] Work Phone: Start: 12-20-2019 MINT GREEN TOP Jose bradford [employer] Work Phone: Start: 12-20-2019 RAINBOW DRAW Jose escoto [employer] Work Phone: Start: 12-20-2019 Thyrotropin [Units/v olume] in Serum or Plasma by Detection limit <= 0.005 mIU/L Jose Zimmerman [employer] Work Phone: Start: 12-20-2019 Troponin measurement Ju aniket Zimmerman [employer] Work Phone: Start: 12-20-2019 12 lead ECG Jose escoto [employer] Work Phone: Start: 12-20-2019 Choriogonadotropin ( test) [Presence] in Urine Christiana Morrisn Patience Work Phone: Start: 12-20-2019 Urinalysis, automated S sofi Morrisn Patience Work Phone: Start: 12-20-2019 12 lead ECG Christiana Young Work Phone: Start: 10-12-2019 MRI of cervical spin e without contrast Antwon Martin Work Phone: Plan of Treatment Date Care Activity Detail Author Start: 2049 Pneumococcal Vaccine: Ped or At-Risk (2 of 2 - PPSV23) Pneumococcal Vaccine: Ped or At-Risk (2 of 2 - PPSV23) [facility] Start: 06-09-2033 Tetanus vaccination [facility] Start: 06-11-[address] [facility] Start: 06-11-2026 Urine microalbumin profile DTAP,TDAP,TD (3 - Td or Tdap) [facility] Start: 05-30-2026 Lipid panel LIPIDS [facility] Start: 05-30-2026 Thyroid stimulating hormone measurement TSH [facility] Start: 05-30-2026 Urine screening for protein URINE MICROALBUMIN TEST [facility] Start: 03-04-2026 Lipid panel LIPIDS [facility] Start: 03-04-2026 Thyroid stimulating hormone measurement TSH [facility] Start: 03-04-2026 Urine screening for protein URINE MICROALBUMIN TEST [facility] Start: 12-22-2025 Glaucoma screening EYE EXAM [facility] Start: 12-07-2025 End: 12-07-2025 Patient encounter procedure [facility] Pulmonary Disease [facility] Start: 12-06-2025 End: 12-06-2025 Patient encounter procedure 12/06/2025 3:00 PM EST Office Visit [place] [id number] [place] [address] Carmen Mckeon PA-C [address] [place] [address] [facility] Start: 12-02-2025 Lipid panel LIPIDS [facility] Start: 12-02-2025 Thyroid stimulating hormone measurement TSH [facility] Start: 12-02-2025 Urine screening for protein URINE MICROALBUMIN TEST [facility] Start: 11-30-2025 Hemoglobin A1c measurement [facility] Start: 11-22-2025 End: 11-22-2025 Patient encounter procedure 11/22/2025 3:30 PM EST Office Visit [facility] [address] [place] [address] Guillermo Khalil II, MD [address] [place] [address] [facility] Start: 11-21-2025 Screening for malignant neoplasm of breast MAMMOGRAM SCREENING DISCUSSION [facility] Start: 11-07-2025 End: 11-07-2025 US Kidney US RENAL RETROPERITONEAL Imaging Routine History of nephrolithiasis Expected: 11/07/2025 (Approximate), Expires: 11/07/2025 [facility] Comment on above: Expected: 11/07/2025 (Approximate), Expi res: 11/07/2025 Start: 11-06-2025 End: 11-06-2025 Patient encounter procedure 11/06/2025 8:00 AM EST Office Visit [facility] [address] [facility] [address] Omid Coffey, VICE PRESIDENT [employer] [address] [place] [address] [facility] Start: 09-18-2025 End: 09-18-2025 Clinical Support 09/18/2025 3:15 PM EDT Clinical Support [facility] [address] [place] [address] Antwon Martin, VICE PRESIDENT [employer] [address] [place] [address] [facility] Start: 09-12-2025 End: 09-12-2025 Patient encounter procedure 09/12/2025 3:30 PM EDT Office Visit [facility] [address] [place] [address] Jesus Alvarez, VICE PRESIDENT [employer] [address] [place] [address] [facility] Start: 09-03-2025 Hemoglobin A1c measurement [facility] Start: 08-29-2025 End: 08-29-2025 Clinical Support 08/29/2025 3:15 PM EDT Clinical Support [facility] [address] [place] [address] Antwon Martin, VICE PRESIDENT [employer] [address] [place] [address] [facility] Start: 08-26-2025 Lipid panel LIPIDS [facility] Start: 08-26-2025 Thyroid stimulating hormone measurement TSH [facility] Start: 08-26-2025 Urine screening for protein URINE MICROALBUMIN TEST [facility] Start: 08-20-2025 End: 06-06-2026 CBC,PLATELETS CBC,PLATELETS Lab Routine Type 2 diabetes mellitus with hyperglycemia, without long-term current use of insulin Expected: 08/20/2025 (Approximate), Expires: 06/06/2026 [facility] Comment on above: Expected: 08/20/2025 (Approximate), Expi res: 06/06/2026 Start: 08-20-2025 End: 06-06-2026 Comprehensive metabolic 2000 panel - Serum or Plasma COMPREHENSIVE METABOLIC PANEL Lab Routine Type 2 diabetes mellitus with hyperglycemia, without long-term current use of insulin Expected: 08/20/2025 (Approximate), Expires: 06/06/2026 [facility] Comment on above: Expected: 08/20/2025 (Approximate), Expi res: 06/06/2026 Start: 08-20-2025 End: 06-06-2026 Hemoglobin A1c/Hemoglobin.total in Blood HEMOGLOBIN A1C Lab Routine Type 2 diabetes mellitus with hyperglycemia, without long-term current use of insulin Expected: 08/20/2025 (Approximate), Expires: 06/06/2026 [facility] Comment on above: Expected: 08/20/2025 (Approximate), Expi res: 06/06/2026 Start: 08-20-2025 End: 06-06-2026 LIPID PANEL W CALCULATED LDL LIPID PANEL W CALCULATED LDL Lab Routine Type 2 diabetes mellitus with hyperglycemia, without long-term current use of insulin Expected: 08/20/2025 (Approximate), Expires: 06/06/2026 [facility] Comment on above: Expected: 08/20/2025 (Approximate), Expi res: 06/06/2026 Start: 08-20-2025 End: 06-06-2026 MICROALBUMIN/CREATININE RATIO MICROALBUMIN/CREATININE RATIO Fluids Routine Type 2 diabetes mellitus with hyperglycemia, without long-term current use of insulin Expected: 08/20/2025 (Approximate), Expires: 06/06/2026 [facility] Comment on above: Expected: 08/20/2025 (Approximate), Expi res: 06/06/2026 Start: 08-20-2025 End: 06-06-2026 TSH W/FT4 REFLEX TSH W/FT4 REFLEX Lab Routine 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 Expected: 08/20/2025 (Approximate), Expires: 06/06/2026 [facility] Comment on above: Expected: 08/20/2025 (Approximate), Expi res: 06/06/2026 Start: 07-31-2025 Influenza vaccination Influenza Vaccine (#1) [facility] Start: 06-14-2025 End: 06-14-2025 Patient encounter procedure 06/14/2025 3:30 PM EDT Office Visit [facility] [address] [place] [address] Guillermo Khalil II, MD [address] [place] [address] [facility] Start: 06-12-2025 End: 06-12-2025 Clinical Support 06/12/2025 2:15 PM EDT Clinical Support [facility] [address] [place] [address] Antwon Martin, VICE PRESIDENT [employer] [address] [place] [phone] [facility] Start: 06-06-2025 End: 06-06-2025 Patient encounter procedure 06/06/2025 3:00 PM EDT Office Visit [facility] [address] [phone] Jesus Alvarez, VICE PRESIDENT [employer] [address] [place] [address] [facility] Start: 06-05-2025 End: 06-05-2025 Patient encounter procedure 06/05/2025 3:00 PM EDT Office Visit [facility] [address] [place] [phone] Carmen Mckeon PA-C [address] [place] [address] [facility] Start: 06-01-2025 Hemoglobin A1c measurement [facility] Start: 05-30-2025 End: 05-30-2025 Clinical Support 05/30/2025 3:00 PM EDT Clinical Support [facility] [address] [place] [address] Antwon Martin, VICE PRESIDENT [employer] [address] [place] [address] [facility] Start: 05-21-2025 End: 03-07-2026 CBC,PLATELETS CBC,PLATELETS Lab Routine Type 2 diabetes mellitus with hyperglycemia, without long-term current use of insulin Expected: 05/21/2025 (Approximate), Expires: 03/07/2026 [facility] Comment on above: Expected: 05/21/2025 (Approximate), Expi res: 03/07/2026 Start: 05-21-2025 End: 03-07-2026 Comprehensive metabolic 2000 panel - Serum or Plasma COMPREHENSIVE METABOLIC PANEL Lab Routine Type 2 diabetes mellitus with hyperglycemia, without long-term current use of insulin Expected: 05/21/2025 (Approximate), Expires: 03/07/2026 [facility] Comment on above: Expected: 05/21/2025 (Approximate), Expi res: 03/07/2026 Start: 05-21-2025 End: 03-07-2026 Hemoglobin A1c/Hemoglobin.total in Blood HEMOGLOBIN A1C Lab Routine Type 2 diabetes mellitus with hyperglycemia, without long-term current use of insulin Expected: 05/21/2025 (Approximate), Expires: 03/07/2026 [facility] Comment on above: Expected: 05/21/2025 (Approximate), Expi res: 03/07/2026 Start: 05-21-2025 End: 03-07-2026 LIPID PANEL W CALCULATED LDL LIPID PANEL W CALCULATED LDL Lab Routine Type 2 diabetes mellitus with hyperglycemia, without long-term current use of insulin Expected: 05/21/2025 (Approximate), Expires: 03/07/2026 [facility] Comment on above: Expected: 05/21/2025 (Approximate), Expi res: 03/07/2026 Start: 05-21-2025 End: 04-08-2026 MICROALBUMIN/CREATININE RATIO MICROALBUMIN/CREATININE RATIO Fluids Routine Type 2 diabetes mellitus with hyperglycemia, without long-term current use of insulin Expected: 05/21/2025 (Approximate), Expires: 03/07/2026 [facility] Comment on above: Expected: 05/21/2025 (Approximate), Expi res: 03/07/2026 Start: 05-21-2025 End: 03-07-2026 TSH W/FT4 REFLEX TSH W/FT4 REFLEX Lab Routine 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 Expected: 05/21/2025 (Approximate), Expires: 03/07/2026 [facility] Comment on above: Expected: 05/21/2025 (Approximate), Expi res: 03/07/2026 Start: 05-08-2025 End: 11-07-2025 Basic metabolic 2000 panel - Serum or Plasma BASIC METABOLIC PANEL Lab Routine History of nephrolithiasis Expected: 05/08/2025 (Approximate), Expires: 11/07/2025 [facility] Comment on above: Expected: 05/08/2025 (Approximate), Expi res: 11/07/2025 Start: 04-26-2025 End: 04-26-2025 Nutrition therapy 04/26/2025 3:45 PM EDT Nutrition [facility] [address] [place] [address] [facility] Start: 04-17-2025 Lipid panel LIPIDS [facility] Start: 04-17-2025 Thyroid stimulating hormone measurement TSH [facility] Start: 04-17-2025 Urine screening for protein URINE MICROALBUMIN TEST [facility] Start: 03-07-2025 End: 03-07-2025 Patient encounter procedure 03/07/2025 3:30 PM EDT Office Visit [facility] [address] [facility] [address] [place] [address] Jesus Alvarez, VICE PRESIDENT [employer] [address] [place] [address] [facility] Start: 03-06-2025 End: 03-06-2025 Patient encounter procedure 03/06/2025 2:15 PM EDT Office Visit [facility] [address] [place] [address] Antwon Martin, VICE PRESIDENT [employer] [address] [place] [address] [facility] Start: 02-28-2025 End: 02-28-2025 Clinical Support 02/28/2025 3:00 PM EDT Clinical Support [facility] [address] [place] [address] Antwon Martin, VICE [employer] [address] [place] [address] [facility] Start: 02-23-2025 Hemoglobin A1c measurement [facility] Start: 01-28-2025 End: 01-28-2025 US Kidney US RENAL RETROPERITONEAL Imaging Routine Kidney stone Expected: 01/28/2025 (Approximate), Expires: 01/28/2025 [facility] Comment on above: Expected: 01/28/2025 (Approximate), Expi res: 01/28/2025 Start: 01-27-2025 End: 01-27-2025 Patient encounter procedure [facility] Urology Start: 01-14-2025 End: 01-14-2025 Patient encounter procedure 01/14/2025 2:00 PM EST Appointment [facility] Ultrasound [address] [place] [address] Balbir Malagon MD [address] [place] [address] [facility] Ultrasound Start: 01-12-2025 End: 01-12-[address] [facility] Cardiology Start: 01-09-2025 End: 01-09-2025 Nutrition therapy 01/09/2025 3:45 PM EST Nutrition [facility] Nutritional Services [address] [place] [phone] Kendra Harry, [facility] Nutritional Services Start: 12-15-2024 End: 12-15-[address] [facility] Cardiology Start: 12-07-2024 End: 12-07-2024 Patient encounter procedure 12/07/2024 3:00 PM EST Office Visit [facility] Medicine [address] [place] [phone] Carmen Mckeon PA-C [address] [place] [address] [facility] Medicine Start: 12-06-2024 End: 12-06-2024 Patient encounter procedure [facility] Start: 12-01-2024 End: 12-01-2024 Patient encounter procedure 12/01/2024 3:30 PM EST Office Visit [facility] Pulmonary Disease [address] [address] Coreen Lanier, MEMBER SERVICES COORDINATOR-VICE PRESIDENT [employer] [address] [place] [address] [facility] Pulmonary [facility]ly [facility] Start: 11-28-2024 End: 11-28-2024 Patient encounter procedure 11/28/2024 2:00 PM EST Office Visit [facility] [address] [facility] [place] [address] Antwon Martin, VICE PRESIDENT [employer] [address] [place] [phone] [facility] Start: 2024 Lipid panel LIPIDS [facility] Start: 2024 Screening for malignant neoplasm of breast Mammogram [facility] Start: 2024 Thyroid stimulating hormone measurement TSH [facility] Start: 11-21-2024 End: 11-21-2024 Patient encounter procedure 11/21/2024 1:30 PM EST Office Visit [facility] Medicine [address] [place] [phone] Carmen Mckeon PA-C [address] [place] [address] [facility] Start: 11-16-2024 End: 09-02-2025 CBC,PLATELETS CBC,PLATELETS Lab Routine Type 2 diabetes mellitus with hyperglycemia, without long-term current use of insulin Expected: 11/16/2024 (Approximate), Expires: 09/02/2025 [facility] Comment on above: Expected: 11/16/2024 (Approximate), Expi res: 09/02/2025 Start: 11-16-2024 End: 09-02-2025 Comprehensive metabolic 2000 panel - Serum or Plasma COMPREHENSIVE METABOLIC PANEL Lab Routine Type 2 diabetes mellitus with hyperglycemia, without long-term current use of insulin Expected: 11/16/2024 (Approximate), Expires: 09/02/2025 [facility] Comment on above: Expected: 11/16/2024 (Approximate), Expi res: 09/02/2025 Start: 11-16-2024 End: 09-02-2025 Hemoglobin A1c/Hemoglobin.total in Blood HEMOGLOBIN A1C Lab Routine Type 2 diabetes mellitus with hyperglycemia, without long-term current use of insulin Expected: 11/16/2024 (Approximate), Expires: 09/02/2025 [facility] Comment on above: Expected: 11/16/2024 (Approximate), Expi res: 09/02/2025 Start: 11-16-2024 End: 09-02-2025 LIPID PANEL W CALCULATED LDL LIPID PANEL W CALCULATED LDL Lab Routine Type 2 diabetes mellitus with hyperglycemia, without long-term current use of insulin Expected: 11/16/2024 (Approximate), Expires: 09/02/2025 [facility] Comment on above: Expected: 11/16/2024 (Approximate), Expi res: 09/02/2025 Start: 11-16-2024 End: 09-02-2025 MICROALBUMIN/CREATININE RATIO MICROALBUMIN/CREATININE RATIO Fluids Routine Type 2 diabetes mellitus with hyperglycemia, without long-term current use of insulin Expected: 11/16/2024 (Approximate), Expires: 09/02/2025 [facility] Comment on above: Expected: 11/16/2024 (Approximate), Expi res: 09/02/2025 Start: 11-16-2024 End: 09-02-2025 Thyrotropin [Units/volume] in Serum or Plasma TSH Lab Routine Hypothyroidism (acquired) Expected: 11/16/2024 (Approximate), Expires: 09/02/2025 [facility] Comment on above: Expected: 11/16/2024 (Approximate), Expi res: 09/02/2025 Start: 11-16-2024 End: 09-02-2025 Thyroxine (T4) free [Mass/volume] in Serum or Plasma T4 FREE Lab Routine Hypothyroidism (acquired) Expected: 11/16/2024 (Approximate), Expires: 09/02/2025 [facility] Comment on above: Expected: 11/16/2024 (Approximate), Expi res: 09/02/2025 Start: 11-07-2024 End: 11-07-2024 Patient encounter procedure [facility] Start: 10-18-2024 Hemoglobin A1c measurement [facility] Start: 10-04-2024 End: 10-04-2025 Bacteria identified in Urine by Culture [facility] Comment on above: Expected: 10/04/2024, Expires: Start: 09-24-2024 End: 09-24-2025 Bacteria identified in Urine by Culture [facility] Comment on above: Expected: 09/24/2024, Expires: Start: 09-06-2024 End: 09-06-2024 Nutrition therapy 09/06/2024 3:30 PM EDT Nutrition [facility] Nutritional Services [address] [place] [phone] Kendra Harry, GEORGE [facility] Nutritional Services Start: 08-30-2024 End: 08-30-2024 Patient encounter procedure 08/30/2024 3:30 PM EDT Office Visit [facility] [address] [facility] [address] [place] [address] Jesus Alvarez, VICE PRESIDENT [employer] [address] [place] [address] [facility] Start: 08-22-2024 End: 08-22-2024 Patient encounter procedure 08/22/2024 3:15 PM EDT Office Visit [facility] [address] [place] [address] Antwon Martin, VICE PRESIDENT [employer] [address] [place] [phone] [facility] Start: 08-15-2024 End: 08-15-2024 Patient encounter procedure 08/15/2024 3:15 PM EDT Office Visit [facility] [address] [place] [address] Antwon Martin, VICE PRESIDENT [employer] [address] [place] [address] [facility] Start: 08-10-2024 End: 08-10-2024 Patient encounter procedure 08/10/2024 2:20 PM EDT Office Visit [facility] Cardiology [address] [place] [address] Guillermo Khalil II, MD [address] [place] [address] [facility] Cardiology Start: 08-09-2024 End: 08-09-2024 Patient encounter procedure [facility] Start: 08-08-2024 End: 08-08-2024 Patient encounter procedure 08/08/2024 2:30 PM EDT Office Visit [facility] Urology [address] [place] [address] Robson Parnell MD [address] [place] [address] [facility] Urology Start: 08-08-2024 End: 08-08-2025 Comprehensive metabolic 2000 panel - Serum or Plasma COMPREHENSIVE METABOLIC PANEL Lab Routine History of nephrolithiasis Expected: 08/08/2024, Expires: 08/08/2025 [facility] Comment on above: Expected: 08/08/2024, Expires: Start: 08-04-2024 End: 08-04-2024 Patient encounter procedure 08/04/2024 8:00 AM EDT Appointment [facility] Echocardiography [address] [place] [address] Guillermo Khalil II, MD [address] [place] [address] [facility] Echocardiography Start: 07-31-2024 COVID-19 VACCINE () COVID-19 VACCINE () [facility] Start: 07-31-2024 COVID-19 VACCINE () COVID-19 VACCINE () [facility] Start: 07-31-2024 Influenza vaccination INFLUENZA VACCINE (#1) [facility] stem Start: 07-13-2024 End: 04-29-2025 CBC,PLATELETS CBC,PLATELETS Lab Routine Type 2 diabetes mellitus with hyperglycemia, without long-term current use of insulin Expected: 07/13/2024 (Approximate), Expires: 04/29/2025 [facility] Comment on above: Expected: 07/13/2024 (Approximate), Expi res: 04/29/2025 Start: 07-13-2024 End: 04-29-2025 Comprehensive metabolic 2000 panel - Serum or Plasma COMPREHENSIVE METABOLIC PANEL Lab Routine Type 2 diabetes mellitus with hyperglycemia, without long-term current use of insulin Expected: 07/13/2024 (Approximate), Expires: 04/29/2025 [facility] Comment on above: Expected: 07/13/2024 (Approximate), Expi res: 04/29/2025 Start: 07-13-2024 End: 04-29-2025 Hemoglobin A1c/Hemoglobin.total in Blood HEMOGLOBIN A1C Lab Routine Type 2 diabetes mellitus with hyperglycemia, without long-term current use of insulin Expected: 07/13/2024 (Approximate), Expires: 04/29/2025 [facility] Comment on above: Expected: 07/13/2024 (Approximate), Expi res: 04/29/2025 Start: 07-13-2024 End: 04-29-2025 LIPID PANEL W CALCULATED LDL LIPID PANEL W CALCULATED LDL Lab Routine Type 2 diabetes mellitus with hyperglycemia, without long-term current use of insulin Expected: 07/13/2024 (Approximate), Expires: 04/29/2025 [facility] Comment on above: Expected: 07/13/2024 (Approximate), Expi res: 04/29/2025 Start: 07-13-2024 End: 04-29-2025 MICROALBUMIN/CREATININE RATIO MICROALBUMIN/CREATININE RATIO Fluids Routine Type 2 diabetes mellitus with hyperglycemia, without long-term current use of insulin Expected: 07/13/2024 (Approximate), Expires: 04/29/2025 [facility] Comment on above: Expected: 07/13/2024 (Approximate), Expi res: 04/29/2025 Start: 07-13-2024 End: 04-29-2025 Thyrotropin [Units/volume] in Serum or Plasma TSH Lab Routine Type 2 diabetes mellitus with hyperglycemia, without long-term current use of insulin Expected: 07/13/2024 (Approximate), Expires: 04/29/2025 [facility] Comment on above: Expected: 07/13/2024 (Approximate), Expi res: 04/29/2025 Start: 07-13-2024 End: 04-29-2025 Thyroxine (T4) free [Mass/volume] in Serum or Plasma T4 FREE Lab Routine Type 2 diabetes mellitus with hyperglycemia, without long-term current use of insulin Expected: 07/13/2024 (Approximate), Expires: 04/29/2025 [facility] Comment on above: Expected: 07/13/2024 (Approximate), Expi res: 04/29/2025 Start: 06-21-2024 End: 06-21-2024 Patient encounter procedure 06/21/2024 3:00 PM EDT Office Visit [facility] Podiatry [address] [place] [address] Brit García, AMADEO [address] [place] [address] [facility] Podiatry Start: 06-20-2024 End: 06-20-2024 Patient encounter procedure 06/20/2024 1:30 PM EDT Office Visit [facility] Urology [address] [place] [address] Robson Parnell MD [address] [place] [address] [facility] Urology Start: 06-13-2024 End: 04-14-2025 Cont gluc mntr physician/qhp provided equiptment RI CONT GLUC MNTR PHYSICIAN/QHP PROVIDED EQUIPMENT RI Charge Routine Type 2 diabetes mellitus with hyperglycemia, without long-term current use of insulin Expected: 06/13/2024, Expires: 04/14/2025 [facility] Comment on above: Expected: 06/13/2024, Expires: Start: 06-09-2024 End: 06-09-2024 ambulatory 06/09/2024 11:20 AM EDT Rehab Services Visit [facility] Physical Therapy [facility] [address] [place] [address] Brit García, DPM [address] [place] [address] Chiquita Regalado, PT [address] [place] [address] [facility] Physical Therapy [facility] Start: 05-27-2024 Hemoglobin A[address] [facility] Start: 05-24-2024 End: 05-24-2025 XR Foot - right 3 Views XR FOOT RIGHT 3+ VIEWS Imaging Routine Posterior tibial tendinitis of right lower extremity Posterior tibial tendon dysfunction, bilateral Expected: 05/24/2024, Expires: 05/24/2025 [facility] Comment on above: Expected: 05/24/2024, Expires: Start: 05-24-2024 End: 05-24-2024 Patient encounter procedure 05/24/2024 9:30 AM EDT Office Visit [facility] Podiatry [address] [place] [address] Brit García, MELLISSAM [address] [place] [address] [facility] Podiatry Start: 05-18-2024 End: 05-18-2024 Diabetic care education [facility] Diabetes Education Start: 05-17-2024 End: 05-17-2024 Patient encounter procedure 05/17/2024 2:00 PM EDT Office Visit [facility] Medicine [address] [facility] [place] [address] Carmen Mckeon PA-C [address] [place] [address] [facility] Start: 05-16-2024 End: 06-13-2024 Calcium [Mass/volume] in Serum or Plasma CALCIUM Lab Routine History of nephrolithiasis Multiple punctate calcifications of kidney Expected: 05/16/2024, Expires: 06/13/2024 [facility] Comment on above: Expected: 05/16/2024, Expires: Start: 05-16-2024 End: 05-16-2024 Patient encounter procedure 05/16/2024 2:00 PM EDT Office Visit [facility] Urology [address] [facility] [place] [address] Robson Parnell MD [address] [place] [address] [facility] Urology Start: 05-16-2024 End: 06-13-2024 PHOSPHATE, INORGANIC PHOSPHATE, INORGANIC Lab Routine History of nephrolithiasis Multiple punctate calcifications of kidney Expected: 05/16/2024, Expires: 06/13/2024 [facility] Comment on above: Expected: 05/16/2024, Expires: Start: 05-16-2024 End: 06-13-2024 PTH INTACT PTH INTACT Lab Routine History of nephrolithiasis Multiple punctate calcifications of kidney Expected: 05/16/2024, Expires: 06/13/2024 [facility] Comment on above: Expected: 05/16/2024, Expires: Start: 05-16-2024 End: 06-13-2024 Urate [Mass/volume] in Serum or Plasma URIC ACID Lab Routine History of nephrolithiasis Multiple punctate calcifications of kidney Expected: 05/16/2024, Expires: 06/13/2024 [facility] Comment on above: Expected: 05/16/2024, Expires: Start: 05-10-2024 End: 05-10-2024 Patient encounter procedure 05/10/2024 3:15 PM EDT Office Visit [facility] [address] [place] [address] Antwon Martin, VICE PRESIDENT [employer] [address] [place] [address] [facility] Start: 05-07-2024 End: 05-07-2024 Patient encounter procedure 05/07/2024 2:00 PM EDT Appointment [facility] Ultrasound [address] [place] [phone] Robson Parnell MD [address] [place] [address] [facility] Ultrasound Start: 04-29-2024 End: 04-29-2024 Patient encounter procedure 04/29/2024 3:30 PM EDT Office Visit [facility] Endocrinology [address] [place] [address] Jesus Alvarez, VICE PRESIDENT [employer] [address] [place] [address] [facility] Endocrinology Start: 04-14-2024 End: 04-14-2025 C-PEPTIDE C-PEPTIDE Lab Routine Type 2 diabetes mellitus with hyperglycemia, without long-term current use of insulin Expected: 04/14/2024 (Approximate), Expires: 04/14/2025 [facility] Comment on above: Expected: 04/14/2024 (Approximate), Expi res: 04/14/2025 Start: 04-14-2024 End: 04-14-2025 CBC,PLATELETS CBC,PLATELETS Lab Routine Type 2 diabetes mellitus with hyperglycemia, without long-term current use of insulin Expected: 04/14/2024, Expires: 04/14/2025 [facility] Comment on above: Expected: 04/14/2024, Expires: Start: 04-14-2024 End: 04-14-2025 Comprehensive metabolic 2000 panel - Serum or Plasma COMPREHENSIVE METABOLIC PANEL Lab Routine Type 2 diabetes mellitus with hyperglycemia, without long-term current use of insulin Expected: 04/14/2024, Expires: 04/14/2025 [facility] Comment on above: Expected: 04/14/2024, Expires: Start: 04-14-2024 End: 04-14-2025 Hemoglobin A1c/Hemoglobin.total in Blood HEMOGLOBIN A1C Lab Routine Type 2 diabetes mellitus with hyperglycemia, without long-term current use of insulin Expected: 04/14/2024, Expires: 04/14/2025 [facility] Comment on above: Expected: 04/14/2024, Expires: Start: 04-14-2024 End: 04-14-2025 LIPID PANEL W CALCULATED LDL LIPID PANEL W CALCULATED LDL Lab Routine Type 2 diabetes mellitus with hyperglycemia, without long-term current use of insulin Expected: 04/14/2024, Expires: 04/14/2025 [facility] Comment on above: Expected: 04/14/2024, Expires: Start: 04-14-2024 End: 04-14-2025 MICROALBUMIN/CREATININE RATIO MICROALBUMIN/CREATININE RATIO Fluids Routine Type 2 diabetes mellitus with hyperglycemia, without long-term current use of insulin Expected: 04/14/2024, Expires: 04/14/2025 [facility] Comment on above: Expected: 04/14/2024, Expires: Start: 04-14-2024 End: 04-14-2025 THYROGLOBULIN ANTIBODY THYROGLOBULIN ANTIBODY Lab Routine Hypothyroidism (acquired) Ag's disease Expected: 04/14/2024, Expires: 04/14/2025 [facility] Comment on above: Expected: 04/14/2024, Expires: Start: 04-14-2024 End: 04-14-2025 THYROID PEROXIDASE ANTIBODIES THYROID PEROXIDASE ANTIBODIES Lab Routine Hypothyroidism (acquired) Ag's disease Expected: 04/14/2024, Expires: 04/14/2025 [facility] Comment on above: Expected: 04/14/2024, Expires: Start: 04-14-2024 End: 04-14-2025 THYROID-STIMULATING IMMUNOGLOBULIN THYROID-STIMULATING IMMUNOGLOBULIN Lab Routine Hypothyroidism (acquired) Ag's disease Expected: 04/14/2024 (Approximate), Expires: 04/14/2025 [facility] Comment on above: Expected: 04/14/2024 (Approximate), Expi res: 04/14/2025 Start: 04-14-2024 End: 04-14-2025 Thyrotropin [Units/volume] in Serum or Plasma TSH Lab Routine Hypothyroidism (acquired) Ag's disease Expected: 04/14/2024, Expires: 04/14/2025 [facility] Comment on above: Expected: 04/14/2024, Expires: Start: 04-14-2024 End: 04-14-2025 THYROTROPIN RECEPTOR ANTIBODY THYROTROPIN RECEPTOR ANTIBODY Lab Routine Hypothyroidism (acquired) Ag's disease Expected: 04/14/2024 (Approximate), Expires: 04/14/2025 [facility] Comment on above: Expected: 04/14/2024 (Approximate), Expi res: 04/14/2025 Start: 04-14-2024 End: 04-14-2025 Thyroxine (T4) free [Mass/volume] in Serum or Plasma T4 FREE Lab Routine Hypothyroidism (acquired) Ag's disease Expected: 04/14/2024, Expires: 04/14/2025 [facility] Comment on above: Expected: 04/14/2024, Expires: Start: 04-14-2024 End: 04-14-2025 Triiodothyronine (T3) Free [Mass/volume] in Serum or Plasma T3 FREE Lab Routine Hypothyroidism (acquired) Ag's disease Expected: 04/14/2024, Expires: 04/14/2025 [facility] Comment on above: Expected: 04/14/2024, Expires: Start: 04-14-2024 End: 04-14-2024 Patient encounter procedure 04/14/2024 8:00 AM EDT Office Visit [facility] Endocrinology [address] [place] [address] Jesus Alvarez, VICE PRESIDENT [employer] [address] [place] [address] [facility] Endocrinology Start: 04-07-2024 End: 04-07-2024 Patient encounter procedure 04/07/2024 9:00 AM EDT Appointment [facility] Nuclear Medicine [address] [place] [phone] Aaron Colbert DO [address] [place] [address] [facility] Nuclear Medicine Start: 03-28-2024 End: 03-28-2025 US Kidney US RENAL RETROPERITONEAL Imaging Routine Kidney stone Expected: 03/28/2024, Expires: 03/28/2025 [facility] Comment on above: Expected: 03/28/2024, Expires: Start: 03-28-2024 End: 03-28-2024 Patient encounter procedure 03/28/2024 10:00 AM EDT Office Visit [facility] Urology [address] [place] [address] Robson Parnell MD [address] [place] [address] [facility] Urology Start: 03-17-2024 End: 03-17-2024 Patient encounter procedure 03/17/2024 3:20 PM EDT Office Visit [facility] Cardiology [address] [place] [address] Guillermo Khalil II, MD [address] [place] [address] [facility] Cardiology Start: 03-17-2024 Subsequent hospital visit by physician 03/17/2024 Hospital Encounter [facility] Periop [address] [place] [phone] Robson Parnell MD [address] [place] [address] Nephrolithiasis [facility] Peri Comment on above: Nephrolithiasis Start: 03-17-2024 End: 03-17-2024 Admission to same day surgery center 03/17/2024 11:00 AM EDT - 03/17/2024 12:00 PM EDT Surgery [facility] Periop [address] [place] [address] Robson Parnell MD [address] [place] [address] *[employer]: [employer] #[id number]* CYSTOURETHROSCOPY W/ URETEROSCOPY/ PYELOSCOPY W/ LITHOTRIPSY INCL STENT INSERTION [facility] Peri Comment on above: *[employer]: [employer]mium [employer] #[id number]* CYSTO URETHROSCOPY W/ URETEROSCOPY/ PYELOSCOPY W/ LITHOTRIPSY INCL STENT INSERTION Start: 03-17-2024 End: 03-17-2024 Cysto/uretero w/lithotripsy &indwell stent insrt [facility] Start: 03-17-2024 End: 03-17-2024 X-ray urinary tract exam with contrast material [facility] Start: 03-11-2024 End: 03-11-2024 Patient encounter procedure 03/11/2024 2:15 PM EDT Office Visit [facility] Urology [address] [place] [address] Elisabeth Gregg, MEMBER SERVICES COORDINATOR-VICE PRESIDENT [employer] [address] [place] [address] [facility] Urology Start: 03-09-2024 End: 03-09-2024 Admission to establishment 03/09/2024 10:00 AM EDT Pre-Operative Nurse Assessment [facility] Pre Admission [address] [place] [address] [facility] Pre Admission Start: 03-04-2024 End: 03-04-2025 NM Liver and Biliary ducts and Gallbladder Views W sincalide and W radionuclide IV NUC HEPATOBILIARY WITH EJECTION FRACTION Imaging Routine RUQ pain Expected: 03/04/2024, Expires: 03/04/2025 [facility] Comment on above: Expected: 03/04/2024, Expires: Start: 03-04-2024 End: 03-04-2024 Patient encounter procedure 03/04/2024 1:45 PM EDT Office Visit [facility] Surgery [address] [place] [address] Aaron Colbert, DO [address] [place] [address] [facility] Start: 02-03-2024 End: 02-03-2024 Patient encounter procedure 02/03/2024 3:15 PM EST Office Visit [facility] Physicians [address] [place] [address] Antwon Martin, VICE PRESIDENT [employer] [address] [place] [address] [facility] Start: 01-31-2024 End: 01-31-2024 XR Abdomen Single view XR ABDOMEN 1 VIEW Imaging Routine Kidney stone Expected: 01/31/2024, Expires: 01/31/2024 [facility] Comment on above: Expected: 01/31/2024, Expires: 4 Start: 01-29-2024 End: 01-29-2024 Patient encounter procedure [facility] Urology Start: 01-21-2024 End: 01-21-2025 GI PANEL,PCR GI PANEL,PCR Fluids Routine Diarrhea, unspecified type Expected: 01/21/2024, Expires: 01/21/2025 [facility] Comment on above: Expected: 01/21/2024, Expires: Start: 01-21-2024 End: 01-21-2024 Patient encounter procedure [facility] Otolaryngology Start: 01-21-2024 End: 01-21-2025 US Abdomen RUQ US ABDOMEN RUQ/LIVER/GB Imaging Routine RUQ abdominal pain Expected: 01/21/2024, Expires: 01/21/2025 [facility] Comment on above: Expected: 01/21/2024, Expires: 5 Start: 12-17-2023 End: 12-17-2023 Patient encounter procedure 12/17/2023 3:20 PM EST Office Visit [facility] Cardiology [address] [place] [address] Guillermo Khalil II, MD [address] [place] [address] [facility] Cardiology Start: 2023 End: 2023 Patient encounter procedure [facility] Pulmonary Disease [facility] Start: 11-16-2023 End: 11-16-2024 Basic metabolic 2000 panel - Serum or Plasma BASIC METABOLIC PANEL Lab Routine Type 2 diabetes mellitus without complication, without long-term current use of insulin Expected: 11/16/2023, Expires: 11/16/2024 [facility] Comment on above: Expected: 11/16/2023, Expires: 4 Start: 11-16-2023 End: 11-16-2024 Hemoglobin A1c/Hemoglobin.total in Blood HEMOGLOBIN A1C Lab Routine Type 2 diabetes mellitus without complication, without long-term current use of insulin Expected: 11/16/2023, Expires: 11/16/2024 [facility] Comment on above: Expected: 11/16/2023, Expires: 4 Start: 11-16-2023 End: 11-16-2024 Hepatic function 2000 panel - Serum or Plasma HEPATIC FUNCTION PANEL Lab Routine Type 2 diabetes mellitus without complication, without long-term current use of insulin Expected: 11/16/2023, Expires: 11/16/2024 [facility] Comment on above: Expected: 11/16/2023, Expires: 4 Start: 11-16-2023 End: 11-16-2024 LIPID PANEL W CALCULATED LDL LIPID PANEL W CALCULATED LDL Lab Routine Type 2 diabetes mellitus without complication, without long-term current use of insulin Expected: 11/16/2023, Expires: 11/16/2024 [facility] Comment on above: Expected: 11/16/2023, Expires: 4 Start: 11-16-2023 End: 11-16-2024 TSH W/FT4 REFLEX TSH W/FT4 REFLEX Lab Routine 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 Expected: 11/16/2023, Expires: 11/16/2024 [facility] Comment on above: Expected: 11/16/2023, Expires: 4 Start: 10-28-2023 End: 10-28-2023 Clinical Support 10/28/2023 2:00 PM EST Clinical Support [facility] [address] [place] [address] Antwon Martin, VICE PRESIDENT [employer] [address] [place] [address] [facility] Start: 08-24-2023 End: 08-24-2023 Clinical Support 08/24/2023 11:00 AM EDT Clinical Support [facility] [address] [place] [address] [place] [phone] Antwon Martin, VICE PRESIDENT [employer] [address] [place] [address] [facility] Start: 07-31-2023 COVID-19 VACCINE ( season) COVID-19 VACCINE ( season) [facility] Start: 07-31-2023 COVID-19 Vaccine ( season) COVID-19 Vaccine ( season) [facility] Start: 07-31-2023 Influenza vaccination [facility] Start: 05-25-2023 End: 05-25-2023 Patient encounter procedure 05/25/2023 2:15 PM EDT Office Visit [facility] [address] [place] [address] [place] [phone] Antwon Martin, VICE PRESIDENT [employer] [address] [place] [address] [facility] Start: 05-11-2023 End: 05-11-2023 Admission to same day surgery center [facility] Orthopedic [facility] Sports Medicine Start: 04-15-2023 End: 04-15-2023 Patient encounter procedure 04/15/2023 Office Visit Cardiovascular Medicine Guillermo Khalil II, MD [address] [place] [address] [facility] Cardiology Start: 04-04-2023 End: 04-04-2024 Bacteria identified in Urine by Culture [facility] Comment on above: Expected: 04/04/2023, Expires: Start: 03-11-2023 End: 03-11-2023 Patient encounter procedure 03/11/2023 Office Visit Cardiovascular Medicine Guillermo Khalil II, MD [address] [place] [address] [facility] Cardiology Start: 01-30-2023 End: 01-30-2023 Patient encounter procedure 01/30/2023 Office Visit Urology Elisabeth Gregg, VICE PRESIDENT [employer] [address] [address] [facility] Start: 01-28-2023 End: 01-28-2023 Diagnostic radiography of abdomen XR ABDOMEN 1 VIEW Imaging Routine Kidney stone Expected: 01/28/2023 (Approximate), Expires: 01/28/2023 [facility] Comment on above: Expected: 01/28/2023 (Approximate), Expi res: 01/28/2023 Start: 01-26-2023 End: 01-26-2023 Admission to same day surgery center 01/26/2023 Clinical Support Orthopedic Surgery Antwon Martin, MARBELLA [address] [place] [address] [facility] Start: 11-20-2022 End: 11-20-2022 Patient encounter procedure 11/20/2022 Office Visit Pulmonary Disease Marleny Lanierrashida Aguila, MEMBER SERVICES COORDINATOR-VICE PRESIDENT [employer] [address] [facility] [address] [place] [phone] [facility] Pulmonary Disease [facility] Start: 10-27-2022 End: 10-27-2022 Admission to same day surgery center 10/27/2022 Clinical Support Orthopedic Surgery Antwon Martin CNP [address] [place] [address] [facility] Start: 09-05-2022 End: 09-05-2022 ambulatory 09/05/2022 Treatment Rehabilitation Antwon Martin CNP [address] [place] [address] Brit Patel, PT [facility] Start: 08-28-2022 End: 08-28-2022 ambulatory 08/28/2022 Treatment Rehabilitation Antwon Martin CNP [address] [facility] [place] [address] Jazmin Kern, CENTER MEDICAL SPECIALIST [facility] Start: 08-25-2022 End: 08-25-2022 ambulatory 08/25/2022 Treatment Rehabilitation Antwon Martin CNP [address] [facility] [place] [address] Sincere Arcos, CENTER MEDICAL SPECIALIST [facility] Start: 08-14-2022 End: 08-14-2022 ambulatory [facility] Start: 08-11-2022 End: 08-11-2022 ambulatory 08/11/2022 Treatment Rehabilitation Antwon Martin CNP [address] [facility] [place] [address] Brit Patel, PT [facility] Start: 08-07-2022 End: 08-07-2022 ambulatory 08/07/2022 Treatment Rehabilitation [place] [address] Jazmin Kern [facility] Start: 08-05-2022 End: 08-05-2022 ambulatory 08/05/2022 Treatment Rehabilitation JonjoseAntwon[place] [address] Sincere Arcos, [facility] Start: 07-31-2022 End: 07-31-2022 ambulatory 07/31/2022 Treatment Jabier WebbjoseLilianena [place] [address] Jazmin Kern [facility] Start: 07-31-[address] [facility] Start: 07-28-2022 End: 07-28-2022 ambulatory 07/28/2022 Treatment Rehabilitation JonjoseLilianena [place] [address] Peter Doran [facility] Start: 07-24-2022 End: 07-24-2022 ambulatory 07/24/2022 Treatment Rehabilitation JonjoseLilianerandy [place] [address] Jazmin Kern [facility] Start: 07-23-2022 End: 07-23-2022 Admission to same day surgery center 07/23/2022 Clinical Support Orthopedic Surgery [place] [address] [facility] Start: 07-21-2022 End: 07-21-2022 ambulatory 07/21/2022 Treatment Rehabilitation Antwon Martin CNP [address] [place] [address] Connie Holden CENTER MEDICAL SPECIALIST [facility] Start: 07-16-2022 End: 07-16-2022 ambulatory 07/16/2022 Evaluation Rehabilitation Antwon Martin CNP [address] [place] [address] Brit Patel, PT [facility] Start: 06-23-2022 End: 06-23-2022 Patient encounter procedure 06/23/2022 Office Visit Orthopedic Surgery Antwon Martin CNP [address] [place] [address] [facility] Start: 04-21-2022 End: 04-21-2022 Admission to same day surgery center 04/21/2022 Clinical Support Orthopedic Surgery Antwon Martin CNP [address] [place] [address] [facility] Start: 04-14-2022 End: 04-14-2022 Admission to same day surgery center 04/14/2022 Clinical Support Orthopedic Surgery Antwon Martin CNP [address] [place] [address] [facility] Start: 04-02-2022 End: 04-02-2022 Patient encounter procedure 04/02/2022 Office Visit Cardiovascular Medicine Guillermo Khalil II, MD [address] [place] [address] [facility] Card[facility] Start: 01-28-2022 End: 01-28-2022 Patient encounter procedure 01/28/2022 Office Visit Urology Elisabeth Gregg, VICE PRESIDENT [employer] [address] [place] [address] [facility] Start: 01-28-2022 End: 01-28-2023 Diagnostic radiography of abdomen [facility] Comment on above: Expected: 01/28/2022, Expires: 3 1 Occurrences starti ng 01/28/2022 until 01/28/2022 Start: 01-15-2022 End: 01-15-2022 Admission to same day surgery center 01/15/2022 Clinical Support Orthopedic Surgery Antwon Martin, VICE PRESIDENT [employer] [address] [place] [address] [facility] Start: 11-30-2021 DEPRESSION ASSESSMENT DEPRESSION ASSESSMENT [facility] Start: 11-18-2021 COVID-19 VACCINE (3 - Booster for Dipti series) COVID-19 VACCINE (3 - Booster for Dipti series) [facility] Start: 11-15-2021 End: 11-15-2021 Patient encounter procedure 11/15/2021 Office Visit Pulmonary Disease Coreen Lanier, MEMBER SERVICES COORDINATOR-VICE PRESIDENT [employer] [address] [facility] [address] [place] [phone] [facility] Pulmonary Disease [facility] Start: 10-30-2021 End: 10-30-[address] [facility] Card[facility] Start: 10-18-2021 PNEUMOCOCCAL VACCINE SERIES (2 - PCV) PNEUMOCOCCAL VACCINE SERIES (2 - PCV) [facility] Start: 10-18-2021 PNEUMOCOCCAL VACCINE SERIES (2 of 2 - PCV) PNEUMOCOCCAL VACCINE SERIES (2 of 2 - PCV) [facility] Start: 10-18-2021 Pneumococcal Vaccine: Ped or At-Risk (2 - PCV) Pneumococcal Vaccine: Ped or At-Risk (2 - PCV) [facility] Start: 10-18-2021 Pneumococcal Vaccine: Ped or At-Risk (2 of 2 - PCV) Pneumococcal Vaccine: Ped or At-Risk (2 of 2 - PCV) [facility] Start: 10-16-2021 End: 10-16-2021 Admission to same day surgery center 10/16/2021 Clinical Support Orthopedic Surgery Antwon Martin, VICE PRESIDENT [employer] [address] [place] [address] [facility] Start: 08-31-2021 eGFR Diabetes eGFR Diabetes [facility] Start: 08-31-2021 Hemoglobin A1c measurement A1C [facility] Start: 08-31-2021 Urine screening for protein eGFR Diabetes [facility] Start: 07-31-[address] [facility] Start: 07-25-2021 End: 07-25-2021 Patient encounter procedure 07/25/2021 Office Visit Pulmonary Disease Coreen Lanier APRN-VICE PRESIDENT [employer] [address] [phone] [facility] Pulmonary Disease [facility] Start: 07-24-2021 End: 07-24-2021 Patient encounter procedure 07/24/2021 Office Visit Urology Elisabeth Gregg CNP [address] [facility] [address] [address] [phone] [facility] Start: 07-10-2021 End: 07-10-2021 Admission to same day surgery center 07/10/2021 Clinical Support Orthopedic Surgery Antwon Martin, VICE PRESIDENT [employer] [address] [place] [address] [phone] [facility] Orthopedic [facility] Sports Medicine Start: 06-13-2021 End: 06-13-2021 Admission to same day surgery center 06/13/2021 Surgery Multispecialty Juan Dominique MD [address] [address] [phone] CYSTOURETHROSCOPY W/ URETEROSCOPY/PYELOSCOPY W/ LITHOTRIPSY INCL STENT INSERTION # [phone] [facility] Comment on above: CYSTOURETHROSCOPY W/ URETEROSCOPY/PYELOS COPY W/ LITHOTRIPSY INCL STENT INSERTION # [id number] Start: 06-13-2021 Subsequent hospital visit by physician 06/13/2021 Hospital Encounter Multispecialty Juan Dominique MD [address] [place] [address] [phone] Kidney stone [facility] Comment on above: Kidney stone Start: 06-06-2021 End: 06-06-2021 Patient encounter procedure 06/06/2021 Office Visit Cardiovascular Medicine Guillermo Khalil II, MD [address] [place] [address] [phone] [facility] Start: 06-06-2021 End: 06-06-2021 ambulatory 06/06/2021 Pre-Operative Nurse Assessment Internal Medicine Juan Dominique MD [address] [address] [phone] [facility] Pre Admission Start: 05-30-2021 End: 05-30-2021 Office Visit 05/30/2021 Office Visit Cardiovascular Medicine Guillermo Khalil II, MD [address] [place] [address] [phone] [facility] Start: 04-15-2021 End: 04-15-2021 Nutrition therapy 04/15/2021 Nutrition Kendra Coelho [facility] Start: 04-10-2021 End: 04-10-2021 Admission to same day surgery center 04/10/2021 Clinical Support Orthopedic Surgery Antwon Martin, VICE PRESIDENT [employer] [address] [place] [address] [phone] [facility] Start: 03-29-2021 COVID-19 VACCINE (2 - Booster for Dipti series) COVID-19 VACCINE (2 - Booster for Dipti series) [facility] Start: 03-20-2021 End: 03-20-2021 Telemedicine 03/20/2021 Telemedicine Kendra Coelho [facility] Start: 02-04-2021 End: 02-04-2021 Telemedicine 02/04/2021 Telemedicine Nutrition Aaron Leigh MD [address] [place] [address] [phone] Kendra Harry, [facility] Start: 01-07-2021 End: 01-07-2021 Telemedicine 01/07/2021 Telemedicine Nutrition Kendra Harry, [facility] Start: 01-07-2021 HbA1c (Bld) [Mass fraction] A1C [facility] Start: 12-10-2020 End: 12-10-2020 Telemedicine 12/10/2020 Telemedicine Nutrition Kendra Harry, [facility] Start: 12-05-2020 End: 12-05-2020 Clinical Support 12/05/2020 Clinical Support Orthopedic Surgery Antwon Martin, VICE PRESIDENT [employer] [address] [place] [address] [phone] [facility] Start: 09-12-2020 End: 09-12-2020 Office Visit 09/12/2020 Office Visit Orthopedic Surgery Antwon Martin, VICE PRESIDENT [employer] [address] [place] [address] [phone] [facility] Start: 07-31-2020 Influenza vaccination INFLUENZA VACCINE (#1) [facility] Start: 07-31-2020 Influenza vaccination given Sequential Influenza Vaccine (#1) [facility] Start: 05-30-2020 End: 05-30-2020 Office Visit 05/30/2020 Office Visit Cardiovascular Medicine Guillermo Khalil II, MD [address] [place] [address] [facility] Card[facility] Start: 03-07-2020 HbA1c (Bld) [Mass fraction] A1C [facility] Start: 02-29-2020 End: 02-29-2020 Office Visit 02/29/2020 Office Visit Cardiovascular Medicine Guillermo Khalil II, MD [address] [place] [address] [facility] Cardiology Start: 01-02-2020 End: 01-02-2020 Appointment 01/02/2020 Appointment Cardiology Aaron Leigh MD [address] [place] [address] [phone] [facility] Start: 12-29-2019 End: 12-29-2019 Treatment 12/29/2019 Treatment Antwon Darnell CNP [address] [place] [address] [phone] Elmer Conley, PT [facility] Start: 12-27-2019 End: 12-27-2019 Treatment 12/27/2019 Treatment Antwon Darnell CNP [address] [place] [address] [phone] Gabi Nolan [facility] Start: 12-22-2019 End: 12-22-2019 Treatment 12/22/2019 Treatment Antwon Darnell CNP [address] [place] [address] [phone] Gabi Nolan [facility] Start: 12-20-2019 End: 12-20-2019 Treatment 12/20/2019 Treatment Antwon Darnell CNP [address] [place] [address] [phone] Shanice Booth, [facility] Start: 12-15-2019 End: 12-15-2019 Treatment 12/15/2019 Treatment Antwon Darnell CNP [address] [place] [address] [phone] Viviana Fontaine, [facility] Start: 12-14-2019 End: 12-14-2019 Office Visit 12/14/2019 Office Visit Orthopedic Surgery Antwon Martin CNP [address] [place] [address] [phone] [facility] Start: 12-13-2019 End: 12-13-2019 Treatment [facility] Start: 12-08-2019 End: 12-08-2019 Treatment 12/08/2019 Treatment Rehabilitation Antwon Martin, [place] [address] [phone] Renate Verma, PT [facility] Start: 12-06-2019 End: 12-06-2019 Treatment 12/06/2019 Treatment Rehabilitation Antwon Martin, [place] [address] Gabi Nolan [facility] Start: 12-02-2019 End: 12-02-2019 Treatment 12/02/2019 Treatment Rehabilitation Antwon Martin, [place] [address] [phone] Gabi Nolan [facility] Start: 11-28-2019 End: 11-28-2019 Treatment 11/28/2019 Treatment Rehabilitation Antwon Martin, [place] [address] [phone] Sincere Arcos, [facility] Start: 11-24-2019 End: 11-24-2019 Treatment 11/24/2019 Treatment Rehabilitation Antwon Martin, [place] [address] Mushtaq Patel, [facility] Start: 10-07-2019 End: 10-07-2019 Treatment 10/07/2019 Treatment Rehabilitation Renate Verma, PT [facility] Start: 10-05-2019 End: 10-05-2019 Treatment 10/05/2019 Treatment Rehabilitation Shahida Gray, [facility] Start: 10-03-2019 End: 10-03-2019 Treatment [facility] Start: 09-30-2019 End: 09-30-2019 Treatment 09/30/2019 Treatment Rehabilitation Priscilla Hill, PT [facility] Start: 09-28-2019 End: 09-28-2019 Treatment [facility] Start: 09-26-2019 End: 09-26-2019 Treatment 09/26/2019 Treatment Rehabilitation Shahida Gray, [facility] Start: 09-23-2019 End: 09-23-2019 Treatment 09/23/2019 Treatment Rehabilitation Priscilla Hill, PT [facility] Start: 09-21-2019 End: 09-21-2019 Treatment [facility] Start: 09-19-2019 End: 09-19-2019 Treatment [facility] Start: 09-16-2019 End: 09-16-2019 Treatment 09/16/2019 Treatment Rehabilitation Connie Holden, [facility] Start: 09-14-2019 End: 09-14-2019 Treatment [facility] Start: 09-13-2019 End: 09-13-2019 Procedure visit 09/13/2019 Procedure visit Neurology Bill Arboleda MD [facility] [place] [address] [phone] [facility] Start: 09-12-2019 End: 09-12-2019 Treatment 09/12/2019 Treatment Rehabilitation Shahida Gray, [facility] Start: 07-31-2019 Influenza vaccination INFLUENZA VACCINE (#1) [facility] Start: 07-31-2019 Influenza vaccination given SEQUENTIAL INFLUENZA VACCINE (#1) [facility] Start: 07-31-2018 Influenza vaccination given SEQUENTIAL INFLUENZA VACCINE (#1) [facility] Start: 08-24-2017 Ambulatory 08/24/2017 Hospital Encounter GurvinderMichelle, DPM [address] [place] [address] [phone] [facility] Start: 08-19-2015 PAP TESTING PAP TESTING [facility] Start: 2014 HPV TESTING HPV TESTING [facility] Start: 2014 Screening for malignant neoplasm of cervix [facility] Start: 04-01-2006 Thyroid stimulating hormone measurement TSH [facility] Start: 04-01-2006 TSH Qn TSH [facility] Start: 2005 Screening for malignant neoplasm of cervix [facility] Start: 2003 Third diphtheria, tetanus and acellular pertussis (DTaP) vaccination TDAP (ADULT) [facility] Start: 2002 Hepatitis C antibody, confirmatory test Hepatitis C Screening [facility] Start: 2002 Hepatitis C screening Hepatitis C Screening [facility] Start: 2002 HEPATITIS C SCREENING HEPATITIS C SCREENING [facility] Start: 2002 HIV SCREENING HIV SCREENING [facility] Start: 2002 Tetanus vaccination TETANUS [facility] Start: 2000 COVID-19 Vaccine (1 of 2) COVID-19 Vaccine (1 of 2) [facility] Start: [address] [facility] Start: 1997 HIV screening HIV SCREENING DISCUSSION [facility] Start: 1996 Adolescent depression screening assessment Depression Screening (PHQ9) [facility] Start: 1996 Depression screening using PHQ-9 (Patient Health Questionnaire 9) score [facility] Start: 1994 Albumin DL <= 20 mg/L (U) [Mass/Vol] URINE MICROALBUMIN [facility] Start: 1994 Diabetic foot examination [facility] Start: [address] [facility] Start: 1994 Microalbumin measurement, urine, quantitative Urine Microalbumin [facility] Start: 1994 Ophthalmic examination and evaluation Ophthalmology Exam [facility] Start: 1994 Urine screening for protein [facility] Start: 1990 Pneumococcal Vaccine: Ped or At-Risk (1 of 2 - PPSV23) Pneumococcal Vaccine: Ped or At-Risk (1 of 2 - PPSV23) [facility] Start: 1987 History and physical examination, annual for health maintenance Wellness Visit [facility] Start: 05-27-1985 COVID-19 VACCINE (#1) COVID-19 VACCINE (#1) [facility] Start: 1984 Diabetic foot examination DIABETIC FOOT EXAM [facility] Start: 1984 Glaucoma screening EYE EXAM [facility] Start: 1984 HEPATITIS B (1 of 3 - 3-dose series) HEPATITIS B (1 of 3 - 3-dose series) [facility] Start: 1984 Hepatitis C antibody, confirmatory test HEPATITIS C VIRUS SCREENING [facility] Start: 1984 Hepatitis C screening HEPATITIS C VIRUS SCREENING [facility] Start: 1984 Screening for malignant neoplasm of cervix PAP SMEAR [facility] Start: 1984 Tetanus vaccination TETANUS EVERY [address] [facility] Start: 1984 Urine screening for protein URINE MICROALBUMIN TEST [facility] End: 01-02-2020 24 Hour ECG Holter monitor - 24 hour Cardiac Services Routine Palpitation Once for 1 Occurrences starting 01/02/2020 until 01/02/[address] [facility] Comment on above: Once for 1 Occurrences starting 01/02/20 20 until 01/02/2020 Bacteria identified in Urine by Culture [facility] Culture,Bacterial Culture,Bacter ial Routine 11/19/2017 7:[address] [facility] Work Phone: Dehydroepiandrostero ne sulfate (DHEA-S) [Mass/volume] in Serum or Plasma [facility] End: 06-13-2021 Fluoroscopy XR FLUORO < 1 HOUR OR Imaging Routine One Time for 1 Occurrences starting 06/13/2021 until 06/13/2021 [facility] Comment on above: One Time for 1 Occurrences starting 05/30 until 06/13/2021 Fluoroscopy XR FLUORO < 1 HO UR OR Imaging Routine 06/13/2021 11:26 AM EDT [facility] Cathleen post-voiding re sidual urine&/bladder cap RI CATHLEEN,POST-VOID RES,US,NON-IMAGING RI Charge Routine Ureteral stone Kidney stone Ordered: 07/24/2021 [facility] Work Phone: Comment on above: Ordered: 07/24/2021 POCT URINALYSIS DIPS TICK AUTOMATED W/O SCOP POCT URINALYSIS DIPSTICK AUTOMATED W/O SCOP Point of Care Testing Routine History of nephrolithiasis Ordered: 08/08/2024 [facility] Comment on above: Ordered: 08/08/2024 Polysomnography SLEEP STUDY - DIAGNOSTIC PFT Routine Sleep apnea, unspecified type Snoring Insomnia, unspecified type Morning headache Difficulty concentrating Fatigue, unspecified type Hypersomnia, unspecified Bruxism Ordered: 07/25/2021 [facility] Work Phone: Comment on above: Ordered: 07/25/2021 End: 03-17-2024 RF Unspecified body region Views during surgery [facility] Comment on above: One Time for 1 Occurrences starting 02/28 until 03/17/2024 SLEEP STUDY - TITRATION SLEEP ST UDY - TITRATION PFT Routine Sleep apnea, unspecified type Snoring Insomnia, unspecified type Morning headache Difficulty concentrating Fatigue, unspecified type Hypersomnia, unspecified Bruxism Ordered: 07/25/2021 [facility] Comment on above: Ordered: 07/25/2021 End: 07-08-2024 Standard ECG ECG ECG STAT One Time for 1 Occurrences starting 07/08/2024 until 07/08/2024 [facility] Work Phone: Comment on above: One Time for 1 Occurrences starting 07/2024 until 07/08/2024 End: 05-07-2024 US Kidney [facility] Work Phone: Comment on above: 1 Occurrences starting 05/07/2024 until 05/07/2024 US Kidney US RENAL RETROPERITONEAL Imaging Routine Kidney stone 01/14/2025 2:14 PM EST [facility] End: 01-26-2023 XR Abdomen Single view [facility] Work Phone: Comment on above: 1 Occurrences starting 01/26/2023 until 01/26/2023 End: 01-18-2024 XR Abdomen Single view [facility] Work Phone: Comment on above: 1 Occurrences starting 01/18/2024 until 01/18/2024 XR Chest 1 View XR Chest 1 View Imaging STAT 12/20/2019 8:09 PM EST [facility] End: 05-22-2024 XR Knee Right 4+VWS (Note in Comments) XR Knee Right 4+VWS (Note in Comments) Imaging Routine Pain 1 Occurrences starting 05/22/2023 until 05/22/2024 [facility] Work Phone: Comment on above: 1 Occurrences starting 05/22/2023 until 05/22/2024 End: 06-19-2023 XR Lumbar Spine 2-3 Views (Standard) XR Lumbar Spine 2-3 Views (Standard) Imaging Routine Pain 1 Occurrences starting 06/19/2022 until 06/19/2023 [facility] Work Phone: Comment on above: 1 Occurrences starting 06/19/2022 until 06/19/2023 [facility] Immunizations Immunization Date Immunization Notes Care Provider Asya padilla 08-25-2024 influenza virus vaccine, unspecified formulation Antwon Martin VICE PRESIDENT [employer] Work Phone: [facility] 08-23-2024 influenza virus vaccine, unspecified formulation Jesus Alvarez VICE PRESIDENT [employer] Work Phone: [facility] 08-21-2023 influenza virus vaccine, unspecified formulation Carmen Mckeon PA-C Work Phone: [facility] 06-09-2023 diphtheria, tetanus toxoids and acellular pertussis vaccine, unspecified formulation Lidia Reagan MEMBER SERVICES COORDINATOR-VICE PRESIDENT [employer] Work Phone: [facility] 06-09-2023 tetanus toxoid, redu zak diphtheria toxoid, and acellular pertussis vaccine, adsorbed; Translations: [TDAP VACCINE >10YO 0.5ML IM] Lidia Reagan MEMBER SERVICES COORDINATOR-VICE PRESIDENT [employer] Work Phone: [facility] 08-11-2022 Moderna Bivalent Booster:6-11 YRS 0.25mL; 12+YRS 0.5mL Antwon Martin VICE PRESIDENT [employer] Work Phone: [facility] 09-23-2021 Pfizer SARS-CoV-2 [facility] influenza virus vaccine, unspecified formulation Coreen Lanier MEMBER SERVICES COORDINATOR-VICE PRESIDENT [employer] Work Phone: [facility] 02-01-2021 Dipti SARS-CoV-2 Vaccination Shakir Crowley [facility] 09-20-2020 influenza virus vaccine, unspecified formulation Krystal Mcclain VICE PRESIDENT [employer] Work Phone: [facility] 08-10-2019 Influenza, injectabl e, Madin Evelina Canine Kidney, preservative free, quadrivalent [facility] 08-10-2019 influenza virus vaccine, unspecified formulation Lula High [facility] 10-17-2018 influenza, injectabl e, quadrivalent, preservative free [facility] 07-26-2017 influenza, seasonal, injectable, preservative free [facility] 07-06-2017 influenza, injectabl e, quadrivalent, preservative free [facility] 01-18-2017 hepatitis B vaccine, adult dosage [facility] 07-21-2016 meningococcal polysaccharide (groups A, C, Y and W-135) diphtheria toxoid conjugate vaccine (MCV4P) [facility] 07-15-2016 influenza, injectabl e, quadrivalent, preservative free [facility] 06-30-2016 hepatitis B vaccine, adult dosage [facility] 06-11-2016 tetanus toxoid, redu zak diphtheria toxoid, and acellular pertussis vaccine, adsorbed [facility] 05-26-2016 hepatitis B immune globulin Rohit Clarke MD Work Phone: [facility] 05-25-2016 hepatitis B vaccine, adult dosage [facility] 10-15-2015 influenza, seasonal, injectable [facility] 07-03-2015 tetanus toxoid, redu zak diphtheria toxoid, and acellular pertussis vaccine, adsorbed [facility] 06-04-2012 cayman islander encephaliti s vaccine SC [facility] 05-05-2012 hepatitis A vaccine, pediatric/adolescent dosage, 2 dose schedule [facility] 05-05-2012 tetanus toxoid, redu zak diphtheria toxoid, and acellular pertussis vaccine, adsorbed [facility] 05-04-2012 cayman islander encephaliti s vaccine [facility] 05-04-2012 typhoid vaccine, ashli e, oral [facility] 10-12-2009 novel [id number], live virus for nasal administration [facility] 09-18-2009 influenza virus vaccine, whole virus [facility] 09-27-2003 hepatitis B vaccine, pediatric or pediatric/adolescent dosage [facility] 04-26-2003 hepatitis B vaccine, pediatric or pediatric/adolescent dosage [facility] 03-27-2003 hepatitis B vaccine, pediatric or pediatric/adolescent dosage [facility] 03-27-2003 TD(adult) unspecifie d formulation [facility] 06-28-1997 measles, mumps and rubella virus vaccine [facility] 03-03-1990 diphtheria, tetanus toxoids and acellular pertussis vaccine, unspecified formulation [facility] 03-03-1990 poliovirus vaccine, unspecified formulation [facility] 12-08-1986 poliovirus vaccine, unspecified formulation [facility] 12-06-1986 diphtheria, tetanus toxoids and acellular pertussis vaccine, unspecified formulation [facility] 07-04-1986 diphtheria, tetanus toxoids and pertussis vaccine [facility] 05-24-1986 measles, mumps and rubella virus vaccine [facility] 05-04-1985 diphtheria, tetanus toxoids and pertussis vaccine [facility] 05-04-1985 poliovirus vaccine, unspecified formulation [facility] 02-14-1985 diphtheria, tetanus toxoids and pertussis vaccine [facility] 02-14-1985 poliovirus vaccine, unspecified formulation [facility] Payers Date Payer Category Payer Self-pay 2020 Managed Care (unspecified) MMO [id number] 2019 Managed Care PPO (unspecified) [facility] [id number] 2019 Unknown [id number]. [id number] 2019 Unknown [id number] 1.2.840.186437.1.13.172.2. 7.3.640926.315 2019 Unknown [id number]. 1.13.385.2. 7.3.716636.315 2019 Unknown [id number] 2017 Private Health Insurance 2017 Private Health Insurance AETNA A ETNA CHOICE POS/POSII/PREMIER CARE/PREMIER CARE PLUS xxxxxxxxxx 2017-Present xxxxxxxxxx [id number]. [id number] 2017 Private Health Insurance [id number] 2.16.840.1.293647.3.249.13 1984 Unknown [id number] 2.16.840.1.542704.3.579.2. 903 1984 Unknown [id number] 2.16.840.1.233627.3.579.2. 903 1984 Unknown [id number] 2.16.840.1.645769.3.579.2. 903 1984 Unknown [id number] 2.16.840.1.831557.3.579.2. 903 1984 Unknown [id number] 2.16.840.1.027579.3.579.2. 903 1984 Unknown [id number] 2.16.840.1.538177.3.579.2. 983 1984 Unknown [id number] 2.16.840.1.100125.3.579.2. 983 1984 Unknown [id number] 2.16.840.1.576603.3.579.2. 983 1984 Unknown [id number] 2.16.840.1.261311.3.579.2. 983 1984 Unknown [id number] 2.16.840.1.917345.3.579.2. 983 1984 Unknown [id number] 2.16.840.1.119438.3.579.2. 983 1984 Unknown [id number] 2.16.840.1.925195.3.579.2. 983 1984 Unknown [id number] 2.16.840.1.505459.3.579.2. 903 1984 Unknown [id number] 2.16.840.1.577840.3.579.2. 903 1984 Unknown [id number] 2.16.840.1.492737.3.579.2. 903 1984 Unknown [id number] 2.16.840.1.598810.3.579.2. 903 1984 Unknown [id number] 2.16.840.1.265279.3.579.2. 903 1984 Unknown [id number] 2.16.840.1.752592.3.579.2. 903 1984 Unknown [id number] 2.16.840.1.889316.3.579.2. 903 1984 Unknown [id number] 2.16.840.1.573781.3.579.2. 903 1984 Unknown [id number] 2.16.840.1.063105.3.579.2. 903 1984 Unknown [id number] 2.16.840.1.704174.3.579.2. 903 1984 Unknown [id number] 2.16.840.1.067900.3.579.2. 903 1984 Unknown [id number] 2.16.840.1.661362.3.579.2. 903 1984 Unknown [id number] 2.16.840.1.060555.3.579.2. 903 1984 Unknown [id number] 2.16.840.1.987563.3.579.2. 903 1984 Unknown [id number] 2.16.840.1.728981.3.579.2. 903 1984 Unknown [id number] 2.16.840.1.128129.3.579.2. 903 1984 Unknown [id number] 2.16.840.1.886215.3.579.2. 903 1984 Unknown [id number] 2.16.840.1.969660.3.579.2. 983 1984 Unknown [id number] 2.16.840.1.789951.3.579.2. 983 1984 Unknown [id number] 2.16.840.1.664714.3.579.2. 983 1984 Unknown [id number] 2.16.840.1.865744.3.579.2. 983 1984 Unknown [id number] 2.16.840.1.995571.3.579.2. 983 1984 Unknown [id number] 2.16.840.1.684568.3.579.2. 983 1984 Unknown [id number] 2.16.840.1.589401.3.579.2. 983 1984 Unknown [id number] 2.16.840.1.756775.3.579.2. 983 1984 Unknown [id number] 2.16.840.1.848695.3.579.2. 983 1984 Unknown [id number] 2.16.840.1.146881.3.579.2. 983 1984 Unknown [id number] 2.16.840.1.295878.3.579.2. 983 1984 Unknown [id number] 2.16.840.1.985789.3.579.2. 983 1984 Unknown [id number] 2.16.840.1.950776.3.579.2. 983 1984 Unknown [id number] 2.16.840.1.383345.3.579.2. 983 1984 Unknown [id number] 2.16.840.1.609503.3.579.2. 983 1984 Unknown [id number] 2.16.840.1.087067.3.579.2. 983 1984 Unknown [id number] 2.16.840.1.885594.3.579.2. 983 1984 Unknown [id number] 2.16.840.1.017271.3.579.2. 983 1984 Unknown [id number] 2.16.840.1.626826.3.579.2. 983 1984 Unknown [id number] 2.16.840.1.195454.3.579.2. 983 1984 Unknown [id number] 2.16.840.1.457156.3.579.2. 983 1984 Unknown [id number] 2.16.840.1.659649.3.579.2. 983 1984 Unknown [id number] 2.16.840.1.591361.3.579.2. 983 1984 Unknown [id number] 2.16.840.1.492371.3.579.2. 983 1984 Unknown [id number] 2.16.840.1.947701.3.579.2. 983 1984 Unknown [id number] 2.16.840.1.006288.3.579.2. 983 1984 Unknown [id number] 2.16.840.1.981457.3.579.2. 98 Unknown [id number] Unknown [id number] 2.16.840.1.856605.3.579.2. 462 Unknown [id number] 2.16.840.1.735739.3.579.2. 462 Unknown [id number] 2.16.840.1.595245.3.579.2. 462 Unknown [id number] 2.16.840.1.541600.3.579.2. 462 Unknown [id number] 2.16.840.1.029808.3.579.2. 462 Unknown [id number] 2.16.840.1.364719.3.579.2. 462 Unknown [id number] 2.16.840.1.356826.3.579.2. 462 Unknown [id number] 2.16.840.1.329908.3.579.2. 462 Social History Date Type Detail Facility Tobacco smoking stat [facility] Unknown if ever smoked [facility] Start: 1985 Sex Assigned At Not on file [facility] Work Phone: Start: 08-19-2017 End: 11-20-2017 Tobacco smoking status [facility] Unknown if ever smoked [facility] Work Phone: Start: 08-24-2019 End: 03-10-2024 Tobacco smoking status ILIS Never smoker [facility] Start: 08-24-2019 End: 06-12-2025 Alcohol intake Lifetime non-drinker (finding) [facility] Start: 01-20-2019 End: 05-09-2020 History SDOH Alcohol Frequency [address] [facility] Start: 02-11-2020 End: 07-16-2022 Alcohol intake Current drinker of alcohol (finding) [facility] Start: 02-11-2020 Alcohol Comment occ [facility] Exposure to SARS-CoV -2 (event) Unable to assess [facility] Start: 01-09-2022 End: 02-09-2023 Exposure to SARS-CoV-2 (event) Not sure [facility] Start: 05-15-2020 End: 10-08-2022 Tobacco use and exposure Never used [facility] Start: 06-13-2021 End: 07-04-2025 Alcohol intake Ex-drinker (finding) [facility] Start: 04-16-2022 End: 06-05-2025 Cigarette pack-years [facility] Start: 05-09-2020 End: 06-05-2025 Alcohol Use Disorder Identification Test - Consumption [AUDIT-C] [facility] How often to you hav e a drink containing alcohol? Never [facility] Average Number of Drinks Not on file [facility] Start: 01-20-2019 Gender identity Identifies as female gender (finding) [facility] Start: 01-20-2019 Sexual orientation Heterosexual (finding) [facility] Start: 2023 Alcohol Comment Special Social Occasions only [facility] Start: 01-02-2013 Sex Female (finding) [facility] Start: 1985 Sex Assigned At Female [facility] Medical Equipment Procedure Code Equipment Code Equipment Origin al Text Equipment Identifier Dates [id number] Start: 09-24-2020 End: 05-17-2024 USE TO CHECK GLU COSE ONCE DAILY [id number] Start: 10-04-2020 USE 1 STRIP TO T EST ONCE DAILY [id number] Start: 12-03-2021 Stent Ureteral Contour Vl [id number] - [id number] Start: 03-17-2024 Stent Ureteral Contour Vl [id number] - [id number] Start: 03-17-2024 Inject 1 Needle under the skin 4 times daily. [id number] Start: 05-17-2024 Inject 1 Needle under the skin 4 times daily. [id number] Start: 06-06-2024 1 Each by Unknow n route 4 times daily. [id number] Start: 08-22-2024 End: 06-05-2025 Inject 1 Needle under the skin 4 times daily. [id number] Start: 08-12-2024 End: 12-06-2024 Inject 1 Needle under the skin 4 times daily. [id number] Start: 12-06-2024 1 Each by Unknow n route 4 times daily. [id number] Start: 06-05-2025 Goals Date Patient Goal Desired Activity /State Personal health goal Comment on above: Formatting of this n ote might be different from the original. Patient will be casted for custom fit orthotics to better place them in a more functional environment to control ground reaction forces and control deceleration. 2. Patient was custom fitted for orthotics and will be trained on break in process and use when devices are fabricated. 3. Patient will describe 75% improvement with functional activities while wearing the custom devices as compared to without. Clinical Notes 03-20-2021 to 08-01-2025 Antwon Martin CNP - 06/12/2025 2:15 PM Antwon Meadows, MARBELLA - 06/12/2025 2:15 PM Guzman [place] - 06/06/2025 3:00 PM Mohit Alvarez CNP - 06/06/2025 3:00 PM EDT Note Date & Type Note Facility 08-01-2025 Progress note [facility] 06-12-2025 History of Present illness Narrative 06/12/25 Oswaldo Mroel 1985 No chief complaint on file. HISTORY of Present Illness: Oswaldo Morel is a 39 y.o. year old female that presents today with No chief complaint on file. . Oswaldo Morel has had injections in the past. Last injection to right knee and right shoulder was over 3 months ago and they tolerated well. They have been treated w/ oral medications & injections. Patient denies new injury to the knees or shoulder. The following portions of the patient's history were reviewed and updated as appropriate: allergies, current medications, past surgical history and problem list Assessment No documentation. Referred By: No ref. provider found PAST MEDICAL HISTORY The patient's Medications, Allergies, Past Surgical History, Medical History, Family History and Social History were reviewed and can be found in their online medical record, and I have reviewed this information with Oswaldo Morel at the time of their visit. They are significant for Past Medical History: Diagnosis Date Atrial fibrillation (HCC) Disease of thyroid gland Hypertension Osteoarthritis osteoarthritis PHYSICAL EXAM Ortho Exam Additional Notes: IMAGING Notes: none new today. Reviewed from last visit. IMPRESSION And PLAN: Cortisone injection today. Will follow up in 3 months if effective. Call if no improvement in 10 days. 1. Primary osteoarthritis of right shoulder 2. Primary osteoarthritis of right knee Antwon Martin CNP Associated Order(s): LG Jt Injection/Arthrocentesis: R subacromial bursa Post-Procedure Diagnose(s): Primary osteoarthritis of right shoulder LG Jt Injection/Arthrocentesis: R subacromial bursa Performed by: Antwon Martin CNP Authorized by: Antwon Martin CNP Consent given by: Patient Time out: Immediately prior to the procedure a time out was called Physician or proceduralist has discussed critical or nonroutine steps, procedure duration and anticipated blood loss: Yes Supporting Documentation: Indications: Pain Procedure Details: Location: Shoulder Site: R subacromial bursa Prep: patient was prepped and draped in usual sterile fashion Needle size: 22 G Approach: Posterior Medications: 1 mL dexAMETHasone 4 mg/mL, 1 mL triamcinolone acetonide 40 mg/mL Anesthetic used: Bupivacaine 0.25% Anesthetic amount (mL): 3 Patient tolerance: Patient tolerated the procedure well with no immediate complications documented in this encounter [facility] 06-12-2025 Note LG Jt Injection/Arth rocentesis: R subacromial bursa Performed by: Antwon Martin CNP Authorized by: Antwon Martin CNP Consent given by: Patient Time out: Immediately prior to the procedure a time out was called Physician or proceduralist has discussed critical or nonroutine steps, procedure duration and anticipated blood loss: Yes Supporting Documentation: Indications: Pain Procedure Details: Location: Shoulder Site: R subacromial bursa Prep: patient was prepped and draped in usual sterile fashion Needle size: 22 G Approach: Posterior Medications: 1 mL dexAMETHasone 4 mg/mL, 1 mL triamcinolone acetonide 40 mg/mL Anesthetic used: Bupivacaine 0.25% Anesthetic amount (mL): 3 Patient tolerance: Patient tolerated the procedure well with no immediate complications AUTHENTICATED BY ANTWON MARTIN, ON 06/12/2025 14:37:[address] [facility] 06-12-2025 Note 06/12/25 Oswaldo Morel 1985 No chief complaint on file. HISTORY of Present Illness: Oswaldo Morel is a 39 y.o. year old female that presents today with No chief complaint on file. . Oswaldo Morel has had injections in the past. Last injection to right knee and right shoulder was over 3 months ago and they tolerated well. They have been treated w/ oral medications & injections. Patient denies new injury to the knees or shoulder. The following portions of the patient's history were reviewed and updated as appropriate: allergies, current medications, past surgical history and problem list Assessment No documentation. Referred By: No ref. provider found PAST MEDICAL HISTORY The patient's Medications, Allergies, Past Surgical History, Medical History, Family History and Social History were reviewed and can be found in their online medical record, and I have reviewed this information with Oswaldo Morel at the time of their visit. They are significant for Past Medical History: Diagnosis Date Atrial fibrillation (HCC) Disease of thyroid gland Hypertension Osteoarthritis osteoarthritis PHYSICAL EXAM Ortho Exam Additional Notes: IMAGING Notes: none new today. Reviewed from last visit. IMPRESSION And PLAN: Cortisone injection today. Will follow up in 3 months if effective. Call if no improvement in 10 days. 1. Primary osteoarthritis of right shoulder 2. Primary osteoarthritis of right knee Antwon Martin CNP AUTHENTICATED BY ANTWON MARTIN, ON 06/12/2025 14:37:[address] [facility] 06-12-2025 Note LG Jt Injection/Arth rocentesis: R knee Performed by: Antwon Martin CNP Authorized by: Antwon Martin CNP Consent given by: Patient Time out: Immediately prior to the procedure a time out was called Physician or proceduralist has discussed critical or nonroutine steps, procedure duration and anticipated blood loss: Yes Supporting Documentation: Indications: Pain Procedure Details: Location: Knee Site: R knee Prep: patient was prepped and draped in usual sterile fashion Needle size: 22 G Approach: Anterolateral Medications: 1 mL dexAMETHasone 4 mg/mL, 1 mL triamcinolone acetonide 40 mg/mL Anesthetic used: Bupivacaine 0.25% Anesthetic amount (mL): 3 Patient tolerance: Patient tolerated the procedure well with no immediate complications [facility] 06-12-2025 Note T11 :This report has been cancel led. [facility] 06-06-2025 History of Present illness Narrative Nurse Note: Review of Systems Constitutional: Negative for diaphoresis, fatigue and unexpected weight change. HENT: Negative for trouble swallowing and voice change. Eyes: Negative for pain and visual disturbance. Respiratory: Negative for cough and shortness of breath. Cardiovascular: Negative for chest pain, palpitations and leg swelling. Gastrointestinal: Negative for constipation, diarrhea, nausea and vomiting. Endocrine: Negative for cold intolerance, heat intolerance, polydipsia and polyuria. Musculoskeletal: Negative for neck pain. Neurological: Negative for tremors and numbness. Psychiatric/Behavioral: Negative for sleep disturbance. The patient is not nervous/anxious. Nursing Assessment: Physical Exam Subjective History of Present Illness Diabetes Thyroid Problem Type 2 Diabetes:Today is a 3 month follow up to the office for dexcom download and lab review. She states she was diagnosed with type 2 diabetes about 3 years ago. Family history of diabetes include her mom, dad, and brother. She is currently taking Metformin XR 500 mg 2 tablets twice daily, Lantus 15 units daily, Mounjaro 5 mg weekly, and Jardiance 10 mg daily. She is also using Humalog sliding scale with meals 3 times a day. Typically this is about 2-4 all units with each meal. We changed Ozempic to mounjaro to obtain better glycemic control. Labs demonstrated hemoglobin A1c =6.8% down from 6.9% down from 7.2% down from 7.5% down from 9.0% up from 8.7%, blood uuthfrw=183, GFR=84, no proteinuria, LDL = 51, triglycerides =272. She is currently using the Dexcom G7 personal CGM now. She eats three meals and one snack daily. She drinks mostly water. She tries to eat balanced meals with more protein and less carbs. She will occasionally get cortisone injections. She has met with our certified breastfeeding educator, but not the security systems manager yet. Her last visit with Ophthalmology was November 2024 and she denies complications from diabetes. She sees Dr. Presley Romero at [facility]. She states her right great toe is numb on the medial side from previous ingrown toenail removal. She does have some chronic pain to the right foot due to an extra bone (?), she saw Dr. García on 05/24/2024. She denies pancreatitis. She has kidney stones but no other kidney issues. She has personal history of PVC's and just found out she had a mild heart attack in her sleep in April [address] Khalil with Cardiology. She does have a great amount of stress in her life right now. She states her mother a year ago and she has been caring for her father since. She is also taking care of her brother. She is also dealing with personal relationship issues and she works at the [employer]. Blood pressure at [employer] today in office. No LUZMA or ARB therapy. She is currently taking the rosuvastatin daily again. Hypothyroidism: She is also here for lab follow up on hypothyroidism/ag's. States she was 12 years old when she was diagnosed with thyroid issues and possible PCOS. 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 Family history of thyroid disease includes both of her parents who had hypothyroidism. She states that she does not take biotin but she was taking vitamins as she was trying to get but this is on hold for now. She states she does not take her vitamin anymore. Labs done 05/30/2025 demonstrated TSH = 1.8 Labs done on 03/04/2025 demonstrated TSH=2.41, Free T4=1.31 Labs on 12/02/2024 demonstrated TSH=2.42 with free t4=1.16. Labs on 08/26/2024 demonstrate TSH=3.13, with Free T4=1.20. Previous labs without vitamin demonstrate TSH = 1.93 down from 3.59, Free T4=1.07, and Free T3=2.86.All thyroid antibodies are negative. Patient currently takes levothyroxine 112 mcg daily and liothyronine 5 mcg once daily. She does take this first thing in the morning but with her other medications. No supplements or multivitamin in the morning. She does wait about 1-2 hours to eat food. She is complaining of some fatigue and lack of energy. She is not complaining of dysphagia, dyspnea, difficulty sleeping, or heart palpitations. She does have a history of PVCs. She does see Dr. Khalil with Cardiology. She has never had a thyroid ultrasound. Objective Review of Systems Nurse Note: Review of Systems Constitutional: Negative for diaphoresis, fatigue and unexpected weight change. HENT: Negative for trouble swallowing and voice change. Eyes: Negative for pain and visual disturbance. Respiratory: Negative for cough and shortness of breath. Cardiovascular: Negative for chest pain, palpitations and leg swelling. Gastrointestinal: Negative for constipation, diarrhea, nausea and vomiting. Endocrine: Negative for cold intolerance, heat intolerance, polydipsia and polyuria. Musculoskeletal: Negative for neck pain. Neurological: Negative for tremors and numbness. Psychiatric/Behavioral: Negative for sleep disturbance. The patient is not nervous/anxious. Nursing Assessment: Physical Exam Vitals: Blood pressure 126/74, pulse 85, resp. rate 16, height 1.626 m (5' 4), weight 119.7 kg (264 lb), last menstrual period 05/28/2025, SpO2 98%, not currently . Physical Exam Constitutional: General: She is not in acute distress. Appearance: Normal appearance. HENT: Head: Normocephalic. Eyes: Conjunctiva/sclera: Conjunctivae normal. Neck: Vascular: No carotid bruit. Comments: Thyroid palpates soft, no nodules felt. Negative Marcello test. No acanthosis to neck. Cardiovascular: Rate and Rhythm: Normal rate and regular rhythm. Pulses: Normal pulses. Heart sounds: Normal heart sounds. Pulmonary: Effort: Pulmonary effort is normal. No respiratory distress. Breath sounds: Normal breath sounds. Musculoskeletal: Cervical back: Normal range of motion and neck supple. No tenderness. Skin: General: Skin is warm and dry. Neurological: General: No focal deficit present. Mental Status: She is alert and oriented to person, place, and time. Psychiatric: Mood and Affect: Mood normal. Behavior: Behavior normal. Neurological Exam Mental Status Alert. Oriented to person, place, and time. Foot exam: Needs done at follow up. Assessment and Plan Type 2 diabetes: Discussed CGM download and labs with patient today. CGM data is demonstrating time in target range of 52 % with a GMI = 7.8%. 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 Based on CGM data and discussion with patient we are going to continue with the metformin, Humalog, and Lantus 15 units daily, continue Jardiance 25 mg weekly. We are going to increase Mounjaro to 7.5 mg weekly to try to obtain better glycemic control. She has met with our certified breastfeeding educator, but not the dietitian yet. I would like to see her back in 3 months with CGM download and labs. Hypothyroidism: Discussed discussed thyroid labs. Previous negative thyroid antibodies. TSH is at target. I would like for her to continue the Levothyroxine 112 mcg daily and Liothyronine 5 mcg once daily. Would like to see her back in 3 months with labs for this as well.Sooner if needed. All questions answered and she understands and agrees to proceed. We will continue to follow for diabetes and hypothyroidism. documented in this encounter [facility] 06-06-2025 Miscellaneous Notes Addended by: JESUS ALVAREZ on: 06/06/2025 04:08 PM Modules accepted: Orders documented in this encounter [facility] 06-06-2025 Note Addended by: JESUS ALVAREZ on: 06/06/2025 04:08 PM Modules accepted: Orders [facility] 06-06-2025 Procedure note Associated Ord er(s): RI CONTINUOUS GLUCOSE MONITORING ANALYSIS I&R CGM download demonstrates time in target range 52%, high 39%, very high 9%, low/very low 0%. GMI = 7.8%. CGM data is demonstrating postprandial hyperglycemia after some meals. Overnight blood sugars look good. Based on CGM download discussion with patient we are going to continue Lantus, Humalog, Jardiance, metformin, and increase Mounjaro. We will re-evaluate in 3 months. [facility] 06-06-2025 Procedure note Associated Ord er(s): RI CONTINUOUS GLUCOSE MONITORING ANALYSIS I&R CGM download demonstrates time in target range 52%, high 39%, very high 9%, low/very low 0%. GMI = 7.8%. CGM data is demonstrating postprandial hyperglycemia after some meals. Overnight blood sugars look good. Based on CGM download discussion with patient we are going to continue Lantus, Humalog, Jardiance, metformin, and increase Mounjaro. We will re-evaluate in 3 months. documented in this encounter [facility] 06-05-2025 History of Present illness Narrative States no concerns at this time. ANXIETY/DEPRESSION- Patient her for anxiety/depression. Patient current medications listed on record. Associated sx include stable .Substance abuse - NONE . HYPERTENSION- She presents for follow-up of hypertension. Pt specifically denies headaches, palpitations, and shortness of breath. Current medication regimen is as listed in this record. Blood pressure readings: Pt states they take BP PRN. HYPOTHYROIDISM- She presents for follow up of hypothyroidism. Current symptoms related to thyroid: denies fatigue, weight changes, heat/cold intolerance, bowel and skin changes, and cardiovascular symptoms. Lab Results Component Value Date TSH 2.410 03/04/2025 TSH 2.420 12/02/2024 TSH 3.130 08/26/2024 T4FREE 1.31 03/04/2025 T4FREE 1.16 12/02/2024 T4FREE 1.20 08/26/2024 TYPE 2 DM - Pt present to the office for follow up of type 2 diabetes. Pt is overall doing well, with glucoses for the most part averaging 190's. Pt checks blood sugars 2-3 times a day and PRN. No wide fluctuations in glucoses. Tolerating meds well. Denies change in vision, neuropathy, urinary frequency or frequent infections. Pt states they do check their feet for sores and/or ulcers. Pt is not currently seeing podiatry. Pt last diabetic eye exam 11/2024. Lab Results Component Value Date HGBA1C 6.8 (H) 05/30/2025 BP Readings from Last 3 Encounters: 05/10/25 (!) 135/111 03/07/25 120/74 01/12/25 118/76 Wt Readings from Last 3 Encounters: 05/10/25 121.1 kg (267 lb) 03/07/25 120.9 kg (266 lb 9.6 oz) 01/12/25 120.6 kg (265 lb 14.4 oz) States no concerns at this time. ANXIETY/DEPRESSION- Patient her for anxiety/depression. Patient current medications listed on record. Associated sx include stable .Substance abuse - NONE . HYPERTENSION- She presents for follow-up of hypertension. Pt specifically denies headaches, palpitations, and shortness of breath. Current medication regimen is as listed in this record. Blood pressure readings: Pt states they take BP PRN. HYPOTHYROIDISM- She presents for follow up of hypothyroidism. Current symptoms related to thyroid: denies fatigue, weight changes, heat/cold intolerance, bowel and skin changes, and cardiovascular symptoms. Lab Results Component Value Date TSH 2.410 03/04/2025 TSH 2.420 12/02/2024 TSH 3.130 08/26/2024 T4FREE 1.31 03/04/2025 T4FREE 1.16 12/02/2024 T4FREE 1.20 08/26/2024 TYPE 2 DM - Pt present to the office for follow up of type 2 diabetes. Pt is overall doing well, with glucoses for the most part averaging 190's. Pt checks blood sugars 2-3 times a day and PRN. No wide fluctuations in glucoses. Tolerating meds well. Denies change in vision, neuropathy, urinary frequency or frequent infections. Pt states they do check their feet for sores and/or ulcers. Pt is not currently seeing podiatry. Pt last diabetic eye exam 11/2024. Lab Results Component Value Date HGBA1C 6.8 (H) 05/30/2025 BP Readings from Last 3 Encounters: 06/05/25 110/78 05/10/25 (!) 135/111 03/07/25 120/74 Wt Readings from Last 3 Encounters: 06/05/25 121.1 kg (267 lb) 05/10/25 121.1 kg (267 lb) 03/07/25 120.9 kg (266 lb 9.6 oz) GERD- Oswaldo presents to the office today for follow-up of GERD. Pt denies dysphagia. Pt current medication is vonoprazan fumarate with good. effectiveness. Review of Systems Constitutional: Negative for fatigue and fever. HENT: Negative for ear pain and sinus pain. Eyes: Negative for visual disturbance. Respiratory: Negative for cough and shortness of breath. Cardiovascular: Negative for chest pain, palpitations and leg swelling. Gastrointestinal: Negative for diarrhea, nausea and vomiting. Genitourinary: Negative for dysuria and frequency. Musculoskeletal: Negative for myalgias. Skin: Negative for rash. Neurological: Negative for weakness, numbness and headaches. Psychiatric/Behavioral: Negative for confusion, self-injury, sleep disturbance and suicidal ideas. The patient is not nervous/anxious. Objective: Blood pressure 110/78, pulse 88, weight 121.1 kg (267 lb), last menstrual period 05/28/2025, SpO2 95%, not currently . Results for orders placed or performed in visit on 05/30/25 TSH W/FT4 REFLEX Result Value Ref Range TSH, Reflex FT4 1.800 0.465 - 4.680 uIU/ML LIPID PANEL W CALCULATED LDL Result Value Ref Range CHOLESTEROL 141 107 - 217 MG/DL TRIGLYCERIDE 272 (H) 0 - 150 MG/DL HDL CHOLESTEROL 36 33 - 75 MG/DL LDL CHOLESTEROL, CALCULATED 51 <100 MG/DL VLDL Cholesterol, Calculated 54 (H) 5 - 25 MG/DL TCHOL/HDL RATIO, MANUAL ENTER 3.92 RATIO HEMOGLOBIN A1C Result Value Ref Range HEMOGLOBIN A1C 6.8 (H) 0 - 6 % Estimated Average Glucose 148 mg/dL COMPREHENSIVE METABOLIC PANEL Result Value Ref Range Glucose 154 (H) 70 - 100 MG/DL BUN 16 7 - 20 mg/dL CREATININE SERUM 0.80 0.70 - 1.20 mg/dL SODIUM 138 137 - 145 MMOL/L Potassium 4.5 3.5 - 5.1 MMOL/L CHLORIDE 101 98 - 107 MMOL/L CALCIUM 8.9 8.4 - 10.2 mg/dL PROTEIN, TOTAL 6.9 6.3 - 8.2 g/dL Albumin 4.2 3.5 - 5.0 g/dL BILIRUBIN, TOTAL 0.2 0.2 - 1.3 mg/dL AST 29 14 - 36 U/L ALKALINE PHOSPHATASE 100 38 - 126 U/L CARBON DIOXIDE (CO2) 27 22 - 30 MMOL/L A/G Ratio 1.6 RATIO ALT 27 <35 U/L ESTIMATED GFR 84 ml/min/1.73sq.m GFR COMMENT Average GFR for 40-49 years old = 99. CBC,PLATELETS Result Value Ref Range WBC (WHITE BLOOD COUNT) 8.2 3.6 - 11.0 10*3/uL RBC 4.83 4.0 - 5.4 10*6/uL HEMOGLOBIN (HGB) 14.1 12.0 - 16.0 G/DL HEMATOCRIT (HCT) 41.6 36.0 - 48.0 % Mean Cell Volume 86.2 80.0 - 100.0 FL Mean Cell HGB 29.1 26.0 - 35.0 PG Mean Cell HGB Concentration 33.8 27.0 - 37.0 G/DL RBC Distribution 14.9 (H) 11.5 - 14.5 % PLATELET COUNT 371 130 - 400 10*3/uL Mean Platelet Volume 8.6 7.4 - 11.0 FL BILIRUBIN DIRECT Result Value Ref Range BILIRUBIN, DIRECT 0.0 0.0 - 0.4 MG/DL MICROALBUMIN/CREATININE RATIO Result Value Ref Range CREATININE, MG/DL, URINE 52.4 MG/DL Microalbumin, Urine, Random 7.2 0.0 - 16.7 mg/L MICROALBUMIN/CREATININE RATIO 13.7 1.3 - 30.0 mg MALB/g CREAT Physical Exam Vitals and nursing note reviewed. Constitutional: General: She is not in acute distress. HENT: Head: Normocephalic and atraumatic. Eyes: Extraocular Movements: Extraocular movements intact. Pupils: Pupils are equal, round, and reactive to light. Neck: Vascular: No carotid bruit. Cardiovascular: Rate and Rhythm: Normal rate and regular rhythm. Pulses: Normal pulses. Heart sounds: No murmur heard. No gallop. Pulmonary: Effort: Pulmonary effort is normal. No respiratory distress. Breath sounds: No wheezing or rhonchi. Musculoskeletal: Right lower leg: No edema. Left lower leg: No edema. Skin: General: Skin is warm and dry. Capillary Refill: Capillary refill takes less than 2 seconds. Findings: No rash. Neurological: Mental Status: She is alert and oriented to person, place, and time. Psychiatric: Mood and Affect: Mood normal. Thought Content: Thought content normal. Assessment and Plan: 1. Anxiety and depression Stable, refill sent. - Escitalopram 10 MG tablet; Take 1 tablet by mouth daily. Dispense: 90 tablet; Refill: 1 2. 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 Managed by endocrinology 3. Paroxysmal atrial fibrillation Stable, refill sent. - Atenolol 50 MG tablet; Take 1 tablet by mouth daily. Dispense: 90 tablet; Refill: 1 4. Type 2 diabetes mellitus without complication, without long-term current use of insulin Stable, refill sent. - metFORMIN-XR 500 MG Tab SR 24 HR; Take 2 tablets by mouth 2 times daily. 2 tablets bid Dispense: 360 tablet; Refill: 1 5. Gastroesophageal reflux disease, unspecified whether esophagitis present Stable, refill sent. - Vonoprazan Fumarate (Voquezna) 20 MG tablet; Take 20 mg by mouth daily. Dispense: 90 tablet; Refill: 1 6. Insomnia, unspecified type (Primary) We will try the quetiapine four sleep. We will follow up with home medication is working. - QUEtiapine 25 MG tablet; Take 0.5 tablets by mouth at bedtime. Dispense: 30 tablet; Refill: 1 Carmen Mckeon PA-C 06/05/2025 documented in this encounter [facility] 05-30-2025 History of Present illness Narrative Subjective: Oswaldo Morel is a 39 y.o. female here for No chief complaint on file. Oswaldo is here for repeat neurotoxin injections,. insurance has now approved Botox once again for use. Today she states she having equal resulting pain in right side of neck still. Her injection into her right shouder is helping. Her muscles in her right side of neck are still very painful. HPI: Cervical spine tenderness on palpation.Pain is exacerbated by stressors such as stress and fatigue. Patient has morning benefit but pain in her cervical muscles as day progresses. Notices that she has shoulder tension and often pull up without patient control. Xrays confirm several levels of cervical degeneration. Again , mornings are when she usually feels the best. 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 This exacerbates the pain and she can't hold her head up straight with pain. When Again emg is negative.PT hurts her. She has tried chiropractic and deep tissue massage and benefits are minimal and short-lived. This is evaluated as a personal injury. Pain is located anterior, lateral, neck, trapezius and levator muscle stiffness. Heat helps some but it is minimal. . Discomfort is described as aching, numbness, sharp/stabbing and tingling. Symptoms are exacerbated by repetitive movements, overhead movements and lying on the shoulder. She also complains of occipital headaches and intrascapular burning.Pain is in middle of right shoulder blade pain is stabbing especially at night when temperature drops. Indication for Injection Dystonia Substance Injected: Botox Botulinum toxin was diluted using 4cc .9NS (preservative free) per 200 units. Muscle Units / Inj Vol / Inj # of Inj Total Units Cervical paraspinals B/L 20 0.2 ml 4 80 L. Levator Scapulae 20 0.4 ml 4 80 R. Levator Scapulae 20 0.4 ml 4 80 L. Trapezius 20 0.5 ml 3 60 R. Trapezius 40 0.5 ml 2 80 Other: 0.0 ml 0 Total Amount Administered 380 Waste units: 20 Total Amount Used 380 The following portions of the patient's history were reviewed and updated as appropriate: allergies, current medications, past surgical history and problem list. Review of Systems Constitutional: Negative for chills, diaphoresis and fever. Respiratory: Negative for shortness of breath. Cardiovascular: Negative for chest pain, palpitations and leg swelling. Genitourinary: Negative for frequency and urgency. Musculoskeletal: Positive for myalgias, neck pain and neck stiffness. Skin: Negative for color change, rash and wound. Neurological: Negative for dizziness, syncope and weakness. Psychiatric/Behavioral: Negative for agitation. The patient is not nervous/anxious. Objective: There were no vitals taken for this visit. Physical Exam Constitutional: Appearance: She is well-developed. HENT: Head: Normocephalic and atraumatic. Eyes: Pupils: Pupils are equal, round, and reactive to light. Cardiovascular: Rate and Rhythm: Normal rate and regular rhythm. Pulmonary: Effort: Pulmonary effort is normal. Breath sounds: Normal breath sounds. Abdominal: General: Bowel sounds are normal. Palpations: Abdomen is soft. Musculoskeletal: General: Tenderness present. Cervical back: Normal range of motion and neck supple. Skin: General: Skin is warm and dry. Neurological: Mental Status: She is alert and oriented to person, place, and time. Deep Tendon Reflexes: Reflexes are normal and symmetric. Assessment/Plan: She is still having cervical tightness and severe pain in trapezius. Right side is worse. Neurotoxin injections do help her pain.I would like to appeal to insurance company to go back to dysport use as she is not achieving same relief with the Dysport. 1. Cervical dystonia No follow-ups on file. Antwon Martin CNP 05/30/2025 documented in this encounter [facility] 05-30-2025 Note Subjective: Oswaldo Morel is a 39 y.o. female here for No chief complaint on file. Oswaldo is here for repeat neurotoxin injections,. insurance has now approved Botox once again for use. Today she states she having equal resulting pain in right side of neck still. Her injection into her right shouder is helping. Her muscles in her right side of neck are still very painful. HPI: Cervical spine tenderness on palpation.Pain is exacerbated by stressors such as stress and fatigue. Patient has morning benefit but pain in her cervical muscles as day progresses. Notices that she has shoulder tension and often pull up without patient control. Xrays confirm several levels of cervical degeneration. Again , mornings are when she usually feels the best. 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 This exacerbates the pain and she can't hold her head up straight with pain. When Again emg is negative.PT hurts her. She has tried chiropractic and deep tissue massage and benefits are minimal and short-lived. This is evaluated as a personal injury. Pain is located anterior, lateral, neck, trapezius and levator muscle stiffness. Heat helps some but it is minimal. . Discomfort is described as aching, numbness, sharp/stabbing and tingling. Symptoms are exacerbated by repetitive movements, overhead movements and lying on the shoulder. She also complains of occipital headaches and intrascapular burning.Pain is in middle of right shoulder blade pain is stabbing especially at night when temperature drops. Indication for Injection Dystonia Substance Injected: Botox Botulinum toxin was diluted using 4cc .9NS (preservative free) per 200 units. Muscle Units / Inj Vol / Inj # of Inj Total Units Cervical paraspinals B/L 20 0.2 ml 4 80 L. Levator Scapulae 20 0.4 ml 4 80 R. Levator Scapulae 20 0.4 ml 4 80 L. Trapezius 20 0.5 ml 3 60 R. Trapezius 40 0.5 ml 2 80 Other: 0.0 ml 0 Total Amount Administered 380 Waste units: 20 Total Amount Used 380 The following portions of the patient's history were reviewed and updated as appropriate: allergies, current medications, past surgical history and problem list. Review of Systems Constitutional: Negative for chills, diaphoresis and fever. Respiratory: Negative for shortness of breath. Cardiovascular: Negative for chest pain, palpitations and leg swelling. Genitourinary: Negative for frequency and urgency. Musculoskeletal: Positive for myalgias, neck pain and neck stiffness. Skin: Negative for color change, rash and wound. Neurological: Negative for dizziness, syncope and weakness. Psychiatric/Behavioral: Negative for agitation. The patient is not nervous/anxious. Objective: There were no vitals taken for this visit. Physical Exam Constitutional: Appearance: She is well-developed. HENT: Head: Normocephalic and atraumatic. Eyes: Pupils: Pupils are equal, round, and reactive to light. Cardiovascular: Rate and Rhythm: Normal rate and regular rhythm. Pulmonary: Effort: Pulmonary effort is normal. Breath sounds: Normal breath sounds. Abdominal: General: Bowel sounds are normal. Palpations: Abdomen is soft. Musculoskeletal: General: Tenderness present. Cervical back: Normal range of motion and neck supple. Skin: General: Skin is warm and dry. Neurological: Mental Status: She is alert and oriented to person, place, and time. Deep Tendon Reflexes: Reflexes are normal and symmetric. Assessment/Plan: She is still having cervical tightness and severe pain in trapezius. Right side is worse. Neurotoxin injections do help her pain.I would like to appeal to insurance company to go back to dysport use as she is not achieving same relief with the Dysport. 1. Cervical dystonia No follow-ups on file. Antwon Martin, MARBELLA 05/30/2025 AUTHENTICATED BY ANTWON MARTIN, ON 05/30/2025 15:43:34 [facility] 05-19-2025 Evaluation note Diagnosis Onset Date Resolution Ovarian cyst, complex acute Apr 1:58pm Encounter for IUD insertion acute June 30, 2025 9:20am Contraceptive management acute August 01, 2025 9:20am Hirsutism acute August 01, 2025 9:20am [facility] Work Phone: [phone] 374-259506-14-2025 Radiology Diagnostic study note [facility] Imaging Services [address] [place] [address] Pelvic (Non ) MR#: [id number] Acct: [id number] Name: OSWALDO MOREL Rep #: [id number] : 1985 F 39 From: Jaylin Noe MD PCP: CARMEN MCKEON Status: REG CLI Study:Pelvic (Non ) Date of Exam: 05/12/25 Exam# [id number] Ordering Dr: Millicent Rogers DO PROCEDURE: PELVIC (NON ) 05/12/2025 REASON FOR EXAM: FU US FROM OVARIAN CYST TECHNIQUE: Transabdominal pelvic ultrasound COMPARISON: 03/30/2025. FINDINGS: Normal uterus measuring 7.1 x 4.3 x 2.7 cm. Normal right ovary measuring 3.6 x 3.1 x 2.4 cm. Normal left ovary measuring 2.5 x 1.9 x 1.6 cm. Normal bilateral ovarian flow without evidence of ovarian torsion. The endometrium is normal in thickness measuring 3.1 mm. Normal cervix. No free fluid in the pelvic cul-de-sac. Underdistended bladder measuring 99 cc in volume. US/Pelvic (Non ) IMPRESSION: Unremarkable exam. No residual left ovarian cyst. [facility] CC: Dr. Millicent Cervantes DO; CARMEN MCKEON ~ Assistant Professor Of Spanish: Signed [facility]06-11-2025 History of Present illness Narrative* Shakir Crowley, [employer] - 05/10/2025 11:52 AM EDT [employer] scheduled delivery for patient's Botox for 05/11 between 8-4 at the [facility]. documented in this [id number] History of Present illness Narrative* Lidia Soni - 05/10/2025 8:30 AM EDT GERDNydia Delgado presents to the office today for evaluation of GERD. Pt denies dysphagia. Pt current medication is listed on record with not good effectiveness. Pt states the medication is not working for 2 weeks Pt states she has tried tums * Carmen Mckeon PA-C - 05/10/2025 8:30 AM EDT GERDNydia Delgado presents to the office today for evaluation of GERD. Pt denies dysphagia. Pt current medication is listed on record with not good effectiveness. Pt states the medication is not working for 2 weeks Pt states she has tried tums Review of Systems Constitutional: Negative for fatigue and fever. HENT: Negative for ear pain and sinus pain. Eyes: Negative for visual disturbance. Respiratory: Negative for cough and shortness of breath. Cardiovascular: Negative for chest pain, palpitations and leg swelling. Gastrointestinal: Negative for diarrhea, nausea and vomiting. Genitourinary: Negative for dysuria and frequency. Musculoskeletal: Negative for myalgias. Skin: Negative for rash. Neurological: Negative for weakness, numbness and headaches. Psychiatric/Behavioral: Negative for confusion, self-injury, sleep disturbance and suicidal ideas. The patient is not nervous/anxious. Objective: Blood pressure (!) 135/111, pulse 88, weight 121.1 kg (267 lb), SpO2 96%, not currently . Results for orders placed or performed in visit on 03/04/25 CBC, EDIF, PLATELET Result Value Ref Range WBC (WHITE BLOOD COUNT) 10.3 3.6 - 11.0 10*3/uL RBC 5.28 4.0 - 5.4 10*6/uL HEMOGLOBIN (HGB) 14.8 12.0 - 16.0 G/DL HEMATOCRIT (HCT) 45.6 36.0 - 48.0 % Mean Cell Volume 86.3 80.0 - 100.0 FL Mean Cell HGB 28.0 26.0 - 35.0 PG Mean Cell HGB Concentration 32.4 27.0 - 37.0 G/DL RBC Distribution 14.1 11.5 - 14.5 % PLATELET COUNT 437 (H) 130 - 400 10*3/uL Mean Platelet Volume 7.5 7.4 - 11.0 FL DIFFERENTIAL TYPE AUTO DIFF % NEUTROPHILS 66.0 37.0 - 75.0 % LYMPHOCYTE 20.8 20.0 - 55.0 % MONOCYTE % 10.7 (H) 0.0 - 10.0 % EOSINOPHIL % 2.1 0.0 - 11.0 % BASOPHIL % 0.4 0.0 - 2.0 % Absolute Neutrophil Count 6.8 (H) 1.4 - 6.5 10*3/uL LYMPHOCYTES, ABSOLUTE 2.1 1.2 - 3.4 10*3/uL MONOCYTES, ABSOLUTE 1.1 (H) 0.0 - 0.7 10*3/uL ABSOLUTE EOSINOPHIL COUNT 0.2 0.0 - 0.7 10*3/uL ABSOLUTE BASOPHIL COUNT 0.0 0.0 - 0.2 10*3/uL COMPREHENSIVE METABOLIC PANEL Result Value Ref Range Glucose 176 (H) 70 - 100 MG/DL BUN 20 7 - 20 MG/DL CREATININE SERUM 0.77 0.70 - 1.20 MG/DL SODIUM 139 137 - 145 MMOL/L Potassium 4.7 3.5 - 5.1 MMOL/L CHLORIDE 101 98 - 107 MMOL/L CALCIUM 9.3 8.4 - 10.2 MG/DL PROTEIN, TOTAL 7.9 6.3 - 8.2 GM/DL Albumin 4.8 3.5 - 5.0 G/dl BILIRUBIN, TOTAL 0.4 0.2 - 1.3 MG/DL AST 23 14 - 36 IU/L ALKALINE PHOSPHATASE 95 38 - 126 IU/L CARBON DIOXIDE (CO2) 22 22 - 30 MMOL/L A/G Ratio 1.5 RATIO ALT 27 <35 IU/L ESTIMATED GFR, NON AMER 88 ml/min/1.73sq.m ESTIMATED GFR, 107 ml/min/1.73sq.m GFR COMMENT Average GFR for 40-49 years old = 99. LIPID PANEL W CALCULATED LDL Result Value Ref Range CHOLESTEROL 187 107 - 217 MG/DL TRIGLYCERIDE 305 (H) 0 - 150 MG/DL HDL CHOLESTEROL 45 33 - 75 MG/DL LDL CHOLESTEROL, CALCULATED 81 <100 MG/DL VLDL Cholesterol, Calculated 61 (H) 5 - 25 MG/DL TCHOL/HDL RATIO, MANUAL ENTER 4.16 RATIO HEMOGLOBIN A1C Result Value Ref Range HEMOGLOBIN A1C 6.9 (H) 0 - 6 % Estimated Average Glucose 151 mg/dL T4 FREE Result Value Ref Range FREE T4 1.31 0.78 - 2.19 NG/DL TSH Result Value Ref Range TSH 2.410 0.465 - 4.680 uIU/ML MICROALBUMIN/CREATININE RATIO Result Value Ref Range CREATININE, MG/DL, URINE 64.8 MG/DL Microalbumin, Urine, Random 11.7 0.0 - 16.7 mg/L MICROALBUMIN/CREATININE RATIO 18.1 1.3 - 30.0 mg MALB/g CREAT Physical Exam Vitals and nursing note reviewed. Constitutional: General: She is not in acute distress. HENT: Head: Normocephalic and atraumatic. Eyes: Extraocular Movements: Extraocular movements intact. Pupils: Pupils are equal, round, and reactive to light. Neck: Vascular: No carotid bruit. Cardiovascular: Rate and Rhythm: Normal rate and regular rhythm. Pulses: Normal pulses. Heart sounds: No murmur heard. No gallop. Pulmonary: Effort: Pulmonary effort is normal. No respiratory distress. Breath sounds: No wheezing or rhonchi. Abdominal: General: There is no distension. Palpations: There is no mass. Tenderness: There is no abdominal tenderness. There is no guarding or rebound. Hernia: No hernia is present. Musculoskeletal: Right lower leg: No edema. Left lower leg: No edema. Skin: General: Skin is warm and dry. Capillary Refill: Capillary refill takes less than 2 seconds. Findings: No rash. Neurological: Mental Status: She is alert and oriented to person, place, and time. Psychiatric: Mood and Affect: Mood normal. Thought Content: Thought content normal. Assessment and Plan: Your blood pressure was elevated in the office today. This may be white coat hypertension. To be certain please check your blood pressures over the next two weeks and drop off or send in readings forreview. 1. Gastroesophageal reflux disease, unspecified whether esophagitis present (Primary) Since caring for her father with dementia recently she has been drinking a significantly increased amount of caffeine. States her reflux flared up with burning in her esophagus, increased belching, epigastric pain postprandially. Gave the option of Nexium or trying the Voquezna. She wants to try the Voquezna. We will follow up with effectiveness. - Vonoprazan Fumarate (Voquezna) 20 MG tablet; Take 20 mg by mouth daily. Dispense: 30 tablet; Refill: 1 Carmen Mckeon PA-C 05/10/2025 documented in this [facility]05-19-2025 History of Present illness Narrative* Osorio Laguna LPN - 04/17/2025 2:13 PM EDT Per Riddhi at [facility]- Botox will be delivered on 04-20-[address] [place] [address]. Oswaldo has not given consent for the delivery yet but [facility] will call her today. documented in this [id number] History of Present illness Narrative* Shakir Corwley LPN - 04/13/2025 4:54 PM EDT Clarification given to [facility] for Botox 380 units into divided doses IM every 84 days. documented in this [id number] History of Present illness Narrative* Shakir Crowley LPN - 04/11/2025 1:38 PM EDT Botox approved by [facility] # [id number] from 04/11/25-07/12/25. documented in this [id number] Evaluation note* Diagnosis Onset Date Resolution Status Admit Date Depression acute March 24 11:59am High cholesterol acute March 242024 11:59am Hypothyroidism acute February 11:59am Kidney stones acute March 24, 2025 11:59am Ovarian cyst, complex acute Feb 11:59am Type 2 diabetes mellitus acute March 24, 2025 11:59am Hypertension chronic March 24, 2025 11:59am Encounter for routine gynecological examination noneactive March 24, 2025 11:59am [facility] Work Phone: [phone] Evaluation note* Diagnosis Onset Date Resolution Status Admit Date Depression acute March 24 11:59am High cholesterol acute March 242024 11:59am Hypothyroidism acute February 11:59am Kidney stones acute March 24, 2025 11:59am Ovarian cyst, complex acute Feb 11:59am Type 2 diabetes mellitus acute March 24, 2025 11:59am Hypertension chronic March 24, 2025 11:59am Encounter for routine gynecological examination noneactive March 24, 2025 11:59am Ovarian cyst, complex acute Apr 1:58pm [facility] Work Phone: [phone] 503-191204-08-2025 History of Present illness Narrative* Brent Ott - 03/07/2025 3:30 PM EDT Nurse Note: Review of Systems Constitutional: Positive for fatigue (from cyst on right ovary). Negative for unexpected weight change. Eyes: Negative for visual disturbance. Respiratory: Negative for shortness of breath. Gastrointestinal: Negative for constipation, diarrhea, nausea and vomiting. Endocrine: Positive for polydipsia (just when sugars are high). Negative for polyuria. Neurological: Negative for numbness. Psychiatric/Behavioral: Negative for sleep disturbance. Nursing Assessment: Physical Exam * Jesus Alvarez CNP - 03/07/2025 3:30 PM EDT Subjective History of Present Illness Diabetes Thyroid Problem Type 2 Diabetes:Today is patients fifth visit to the office for dexcom download and lab review. Shestates she was diagnosed with type 2 diabetes about 3 years ago. Family history of diabetes includeher mom, dad, and brother. She is currently taking Metformin XR 500 mg 2 tablets twice daily, Lantus 20 units daily, Mounjaro 2.5 mg weekly, and Jardiance 10 mg daily. She is also using Humalog sliding scale with meals 3 timesa day. Typically this is about 10 units with each meal. We changed Ozempic to mounjaro to obtain better glycemic control. Labs demonstrated hemoglobin A1c =6.9% down from 7.2% down from 7.5% down from 9.0% up from 8.7%, blood fhhxowv=646, GFR=88, LDL = 81, triglycerides = 305. She is currently using the [employer] G7 personal CGM now. She eats three meals and one snack daily. She drinks mostly water. She tries to eat balanced meals with more protein and less carbs. She recently had couple of cortisone injections. Most recent one was yesterday. She has met with our certified breastfeeding educator, but not the security systems manager yet. Her last visit with Ophthalmology was November 2023 and she denies complications from diabetes. She sees Dr. Presley Romero at [facility]. She states her right great toe is numb on the medial side from previous ingrown toenail removal. She does have some chronic pain to the right foot due to an extra bone (?), she saw Dr. García on 05/24/2024. She denies pancreatitis. She has kidney stones but no other kidney issues. She has personal history of PVC's and just found out she had a mild heart attack in her sleep in April and sees Dr. Khalil with Cardiology. She does have a great amount of stress in her life right now. She states her mother a year ago and she has been caring for her father since. She is also taking care of her brother. 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 Blood pressure at target today inoffice. No LUZMA or ARB therapy. She is currently taking the rosuvastatin daily again. Hypothyroidism: She is also here for lab follow up on hypothyroidism/ag's. States she was 12years old when she was diagnosed with thyroid issues and possible PCOS. States she was 14 years oldwhen she received the diagnosis of Ag's thyroiditis. Family history of thyroid disease includes both of her parents who had hypothyroidism. She states that she does not take biotin but she wastaking vitamins as she was trying to get but this is on hold for now. She states she does not take her vitamin anymore. Previous thyroid labs were drawn with vitamin interference. Labs done on 03/04/2025 demonstrated TSH=2.41, Free T4=1.31 Labs on 12/02/2024 demonstrated TSH=2.42 with free t4=1.16. Labs on 08/26/2024 demonstrate TSH=3.13, with Free T4=1.20. Previous labs without vitamin demonstrate TSH = 1.93 down from 3.59, Free T4=1.07, and Free T3=2.86.All thyroid antibodies are negative. Patient currently takes levothyroxine 112 mcg daily. She does take this first thing in the morning but with her other medications which did include a multivitamin but she has since this. She does wait about 1-2 hours to eat food. She is complaining of some fatigue and lack of energy. She is not complaining of dysphagia, dyspnea, difficulty sleeping, or heart palpitations. She does have a history of PVCs. She does see Dr. Khalil with Cardiology. She has never had a thyroid ultrasound. Objective Review of Systems Nurse Note: Review of Systems Constitutional: Negative for fatigue and unexpected weight change. Eyes: Negative for visual disturbance. Respiratory: Negative for shortness of breath. Gastrointestinal: Negative for constipation, diarrhea, nausea and vomiting. Endocrine: Positive for polydipsia and polyuria. Neurological: Negative for numbness. Psychiatric/Behavioral: Negative for sleep disturbance. Nursing Assessment: Physical Exam Vitals: Blood pressure 120/74, pulse 80, resp. rate 16, height 1.626 m (5' 4), weight 120.9 kg (266 lb 9.6 oz), not currently . Physical Exam Constitutional: General: She is not in acute distress. Appearance: Normal appearance. HENT: Head: Normocephalic. Eyes: Conjunctiva/sclera: Conjunctivae normal. Neck: Vascular: No carotid bruit. Comments: Thyroid palpates soft, no nodules felt. Negative Salem test. No acanthosis to neck. Cardiovascular: Rate and Rhythm: Normal rate and regular rhythm. Pulses: Normal pulses. Heart sounds: Normal heart sounds. Pulmonary: Effort: Pulmonary effort is normal. No respiratory distress. Breath sounds: Normal breath sounds. Musculoskeletal: Cervical back: Normal range of motion and neck supple. No tenderness. Skin: General: Skin is warm and dry. Neurological: General: No focal deficit present. Mental Status: She is alert and oriented to person, place, and time. Psychiatric: Mood and Affect: Mood normal. Behavior: Behavior normal. Neurological Exam Mental Status Alert. Oriented to person, place, and time. Foot exam: Needs done at follow up. Assessment and Plan Type 2 diabetes: Discussed CGM download and labs with patient today. CGM data is demonstrating timein target range of 41% with a GMI = 8.1%. 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 Based on CGM data and discussion with patient we are going to continue with the metformin, Humalog, and Lantus 20 units daily, continue Jardiance to 25 mg weekly. We are going to increaseMounjaro to 5 mg weekly to try to obtain better glycemic control. She has met with our certified breastfeeding educator, but not the dietitian yet. I would like to see her back in 3 months with CGM download and labs. Hypothyroidism: Discussed discussed thyroid labs. Previous negative thyroid antibodies. TSH is at target. Patient is complaining of fatigue and lack of energy. I would like for her to continue the Levothyroxine 112 mcg daily. Based on symptoms we are going to trial Liothyronine 5 mcg once daily. Would like to see her back in 3 months with labs for this as well.Sooner if needed. All questions answered and she understands and agrees to proceed. We will continue to follow for diabetes and hypothyroidism. documented in this [facility]04-08-2025 Procedure note* Jesus Alvarez CNP - 03/07/2025 3:30 PM EDTAssociated Order(s): RI CONTINUOUS GLUCOSE MONITORING ANALYSIS I&R CGM download demonstrates time in target range 41%, high 46%, very high 13%, low/very low 0%. GMI =8.1%. CGM data is demonstrating elevated blood sugars currently. Information she recently received a cortisone injection. There is evidence of postprandial hyperglycemia that will go into the overnight hours. Based on CGM download and discussion with patient we are going to continue Lantus 20 units, Humalog sliding scale with meals and times a day, Jardiance, metformin, and we are going to increase Mounjaro 2 5 mg weekly. We will re- evaluate in 3 months. [facility]04-08-2025 Procedure note* Jesus Alvarez CNP - 03/07/2025 3:30 PM EDTAssociated Order(s): RI CONTINUOUS GLUCOSE MONITORING ANALYSIS I&R CGM download demonstrates time in target range 41%, high 46%, very high 13%, low/very low 0%. GMI =8.1%. CGM data is demonstrating elevated blood sugars currently. Information she recently received a cortisone injection. There is evidence of postprandial hyperglycemia that will go into the overnight hours. Based on CGM download and discussion with patient we are going to continue Lantus 20 units, Humalog sliding scale with meals and times a day, Jardiance, metformin, and we are going to increase Mounjaro 2 5 mg weekly. We will re- evaluate in 3 months. [facility] History of Present illness Narrative* Antwon Martin CNP - 03/06/2025 2:15 PM EDT 03/06/25 Oswaldo Morel 1985 No chief complaint on file. HISTORY of Present Illness: Oswaldo Morel is a 39 y.o. year old female that presents today with No chief complaint on file. . Oswaldo Morel has had injections in the past. Last injection to right knee and right shoulder was over 3 months ago and they tolerated well. They have been treated w/ oral medications & injections. Patient denies new injury to the knees or shoulder. The following portions of the patient's history were reviewed and updated as appropriate: allergies, current medications, past surgical history and problem list Assessment No documentation. Referred By: No ref. provider found PAST MEDICAL HISTORY The patient's Medications, Allergies, Past Surgical History, Medical History, Family History and Social History were reviewed and can be found in their online medical record, and I have reviewed thisinformation with Oswaldo Morel at the time of their visit. They are significant for Past Medical History: Diagnosis Date Atrial fibrillation (HCC) Disease of thyroid gland Hypertension Osteoarthritis osteoarthritis PHYSICAL EXAM Ortho Exam Additional Notes: IMAGING Notes: none new today. Reviewed from last visit. IMPRESSION And PLAN: Cortisone injection today. Will follow up in 3 months if effective. Call if no improvement in 10 days. 1. Acute pain of right shoulder 2. Primary osteoarthritis of right knee Antwon Martin CNP * Antwon Martin CNP - 03/06/2025 2:15 PM EDTAssociated Order(s): LG Jt Injection/Arthrocentesis: R subacromial bursa Post-Procedure Diagnose(s): Acute pain of right shoulder LG Jt Injection/Arthrocentesis: R subacromial bursa Performed by: Antwon Martin CNP Authorized by: Antwon Martin CNP CPT 53383 - Large Joint Arthrocentesis: Consent given by: Patient Time out: Immediately prior to the procedure a time out was called Physician or proceduralist has discussed critical or nonroutine steps, procedure duration and anticipated blood loss: Yes Supporting Documentation: Indications: Pain Procedure Details: Location: Shoulder Site: R subacromial bursa Prep: patient was prepped and draped in usual sterile fashion Needle size: 22 G Approach: Posterior Medications: 1 mL dexAMETHasone 4 mg/mL, 1 mL triamcinolone acetonide 40 mg/mL Anesthetic used: Bupivacaine 0.25% Anesthetic amount (mL): 3 Patient tolerance: Patient tolerated the procedure well with no immediate complications documented in this [id number] NoteLG Jt Injection/Arthrocentesis: R knee Performed by: Antwon Martin CNP Authorized by: Antwon Martin CNP CPT 45964 - Large Joint Arthrocentesis: Consent given by: Patient Time out: Immediately prior to the procedure a time out was called Physician or proceduralist has discussed critical or nonroutine steps, procedure duration and anticipated blood loss: Yes Supporting Documentation: Indications: Pain Procedure Details: Location: Knee Site: R knee Prep: patient was prepped and draped in usual sterile fashion Needle size: 22 G Approach: Anterolateral Medications: 1 mL dexAMETHasone 4 mg/mL, 1 mL triamcinolone acetonide 40 mg/mL Anesthetic used: Lidocaine 1% and Bupivacaine 0.25% Anesthetic amount (mL): 3 Patient tolerance: Patient tolerated the procedure well with no immediate complicationsUniversity [facility]04[facility] NoteT11 :This report has been cancelled.[facility]04-07-2025 Note03/06/25 Oswaldo Morel 1985 No chief complaint on file. HISTORY of Present Illness: Oswaldo Morel is a 39 y.o. year old female that presents today with No chief complaint on file. . Oswaldo Morel has had injections in the past. Last injection to right knee and right shoulder was over 3 months ago and they tolerated well. They have been treated w/ oral medications & injections. Patient denies new injury to the knees or shoulder. The following portions of the patient's history were reviewed and updated as appropriate: allergies, current medications, past surgical history and problem list Assessment No documentation. Referred By: No ref. provider found PAST MEDICAL HISTORY The patient's Medications, Allergies, Past Surgical History, Medical History, Family History and Social History were reviewed and can be found in their online medical record, and I have reviewed this information with Oswaldo Morel at the time of their visit. They are significant for Past Medical History: Diagnosis Date Atrial fibrillation (HCC) Disease of thyroid gland Hypertension Osteoarthritis osteoarthritis PHYSICAL EXAM Ortho Exam Additional Notes: IMAGING Notes: none new today. Reviewed from last visit. IMPRESSION And PLAN: Cortisone injection today. Will follow up in 3 months if effective. Call if no improvement in 10 days. 1. Acute pain of right shoulder 2. Primary osteoarthritis of right knee Antwon Martin CNP AUTHENTICATED BY ANTWON MARTIN, ON 03/06/2025 14:31:[address] [place] [address] 03-06-2025 NoteLG Jt Injection/Arthrocentesis: R subacromial bursa Performed by: Antwon Martin CNP Authorized by: Antwon Martin CNP CPT 69929 - Large Joint Arthrocentesis: Consent given by: Patient Time out: Immediately prior to the procedure a time out was called Physician or proceduralist has discussed critical or nonroutine steps, procedure duration and anticipated blood loss: Yes Supporting Documentation: Indications: Pain Procedure Details: Location: Shoulder Site: R subacromial bursa Prep: patient was prepped and draped in usual sterile fashion Needle size: 22 G Approach: Posterior Medications: 1 mL dexAMETHasone 4 mg/mL, 1 mL triamcinolone acetonide 40 mg/mL Anesthetic used: Bupivacaine 0.25% Anesthetic amount (mL): 3 Patient tolerance: Patient tolerated the procedure well with no immediate complications AUTHENTICATED BY ANTWON MARTIN, ON 03/06/2025 14:31:[address] [place] [address] 02-28-2025 NoteSubjective: Oswaldo Morel is a 39 y.o. female here for Injections (Dysport for cervical Dystonia. Patient said it did not last as long as the Botox . ) Oswaldo has not done Botox for over a year due to plans to try to conceive. She is no longer wanting to get at this time so she would like to resume her treatment. Today she states she having equal resulting pain in right side of neck still. Her injection into her right shouder is helping. Her muscles in her right side of neck are still very painful.Her insurance company is now only approving Dysport as neurotoxin.Her last injection of Dysport was in November and it was different feeling and not as long lasting as the botox. Patient supplied Dysport as approved by her insurance,to office for use. HPI: Cervical spine tenderness on palpation.Pain is exacerbated by stressors such as stress and fatigue. Patient has morning benefit but pain in her cervical muscles as day progresses. Notices that she has shoulder tension and often pull up without patient control. Xrays confirm several levels of cervical degeneration. Again , mornings are when she usually feels the best. 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 This exacerbates the pain and she can't hold her head up straight with pain. When Again emg is negative.PT hurts her. She has tried chiropractic and deep tissue massage and benefits are minimal and short-lived. This is evaluated as a personal injury. Pain is located anterior, lateral, neck, trapezius and levator muscle stiffness. Heat helps some but it is minimal. . Discomfort is described as aching, numbness, sharp/stabbing and tingling. Symptoms are exacerbated by repetitive movements, overhead movements and lying on the shoulder. She also complains of occipital headaches and intrascapular burning.Pain is in middle of right shoulder blade pain is stabbing especially at night when temperature drops. Indication for Injection Dystonia Substance Injected: Dysport. A total of 980 units of botulinum toxin A (Dysport ) were diluted into 5 ml of normal saline for a concentration of 200 units per 1 ml of normal saline. A 26-gauge, 1.5 inch-long needle was with 0.5 ml syringes. Muscle Units / Inj Vol / Inj # of Inj Total Units Cervical paraspinals B/L 40 2 80 L. Levator Scapulae 60 4 240 R. Levator Scapulae 60 4 240 L. Trapezius 60 4 240 R. Trapezius 120 2 240 Other: 0.0 ml 0 Total Amount Administered 1040 Waste units: 20 Total Amount Used 980 The following portions of the patient's history were reviewed and updated as appropriate: allergies, current medications, past surgical history and problem list. Review of Systems Constitutional: Negative for chills, diaphoresis and fever. Respiratory: Negative for shortness of breath. Cardiovascular: Negative for chest pain, palpitations and leg swelling. Genitourinary: Negative for frequency and urgency. Musculoskeletal: Positive for myalgias, neck pain and neck stiffness. Skin: Negative for color change, rash and wound. Neurological: Negative for dizziness, syncope and weakness. Psychiatric/Behavioral: Negative for agitation. The patient is not nervous/anxious. Objective: There were no vitals taken for this visit. Physical Exam Constitutional: Appearance: She is well-developed. HENT: Head: Normocephalic and atraumatic. Eyes: Pupils: Pupils are equal, round, and reactive to light. Cardiovascular: Rate and Rhythm: Normal rate and regular rhythm. Pulmonary: Effort: Pulmonary effort is normal. Breath sounds: Normal breath sounds. Abdominal: General: Bowel sounds are normal. Palpations: Abdomen is soft. Musculoskeletal: General: Tenderness present. Cervical back: Normal range of motion and neck supple. Skin: General: Skin is warm and dry. Neurological: Mental Status: She is alert and oriented to person, place, and time. Deep Tendon Reflexes: Reflexes are normal and symmetric. Assessment/Plan: She is still having cervical tightness and severe pain in trapezius. Right side is worse. Neurotoxin injections do help her pain.I would like to appeal to insurance company to go back to dysport use as she is not achieving same relief with the Dysport. 1. Cervical radiculopathy 2. Cervical dystonia Return in about 3 months (around 05/30/2025). Antwon Martin CNP 02/28/2025 AUTHENTICATED BY ANTWON MARTIN, ON 02/28/2025 15:54:[facility] 02-28-2025 History of Present illness Narrative* Antwon Martin CNP - 02/28/2025 3:09 PM EDT Subjective: Oswaldo Morel is a 39 y.o. female here for Injections (Dysport for cervical Dystonia. Patient saidit did not last as long as the Botox . ) Oswaldo has not done Botox for over a year due to plans to try to conceive. She is no longer wantingto get at this time so she would like to resume her treatment. Today she states she having equal resulting pain in right side of neck still. Her injection into her right shouder is helping. Her muscles in her right side of neck are still very painful.Her insurance company is now only approving Dysport as neurotoxin.Her last injection of Dysport was in November and it was different feeling and not as long lasting as the botox. Patient supplied Dysport as approved by her insurance,to office for use. HPI: Cervical spine tenderness on palpation.Pain is exacerbated by stressors such as stress and fatigue. Patient has morning benefit but pain in her cervical muscles as day progresses. Notices that she has shoulder tension and often pull up without patient control. Xrays confirm several levels of cervical degeneration. Again , mornings are when she usually feels the best. 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 This exacerbates the pain and she can't hold her head up straight with pain. When Again emg is negative.PT hurts her. She has tried chiropractic and deep tissue massage and benefits are minimal and short-lived. This is evaluated as a personal injury. Pain is located anterior, lateral, neck, trapezius and levator muscle stiffness. Heat helps some but it is minimal. . Discomfort is described as aching, numbness, sharp/stabbing and tingling. Symptoms are exacerbated by repetitive movements, overhead movements and lying on the shoulder. She also complains of occipital headaches and intrascapular burning.Pain is in middle of right shoulder blade pain is stabbing especially at night when temperature drops. Indication for Injection Dystonia Substance Injected: Dysport. A total of 980 units of botulinum toxin A (Dysport ) were diluted into 5 ml of normal saline for a concentration of 200 units per 1 ml of normal saline. A 26- gauge, 1.5 inch-long needle was with 0.5 ml syringes. Muscle Units / Inj Vol / Inj # of Inj Total Units Cervical paraspinals B/L 40 2 80 L. Levator Scapulae 60 4 240 R. Levator Scapulae 60 4 240 L. Trapezius 60 4 240 R. Trapezius 120 2 240 Other: 0.0 ml 0 Total Amount Administered 1040 Waste units: 20 Total Amount Used 980 The following portions of the patient's history were reviewed and updated as appropriate: allergies, current medications, past surgical history and problem list. Review of Systems Constitutional: Negative for chills, diaphoresis and fever. Respiratory: Negative for shortness of breath. Cardiovascular: Negative for chest pain, palpitations and leg swelling. Genitourinary: Negative for frequency and urgency. Musculoskeletal: Positive for myalgias, neck pain and neck stiffness. Skin: Negative for color change, rash and wound. Neurological: Negative for dizziness, syncope and weakness. Psychiatric/Behavioral: Negative for agitation. The patient is not nervous/anxious. Objective: There were no vitals taken for this visit. Physical Exam Constitutional: Appearance: She is well-developed. HENT: Head: Normocephalic and atraumatic. Eyes: Pupils: Pupils are equal, round, and reactive to light. Cardiovascular: Rate and Rhythm: Normal rate and regular rhythm. Pulmonary: Effort: Pulmonary effort is normal. Breath sounds: Normal breath sounds. Abdominal: General: Bowel sounds are normal. Palpations: Abdomen is soft. Musculoskeletal: General: Tenderness present. Cervical back: Normal range of motion and neck supple. Skin: General: Skin is warm and dry. Neurological: Mental Status: She is alert and oriented to person, place, and time. Deep Tendon Reflexes: Reflexes are normal and symmetric. Assessment/Plan: She is still having cervical tightness and severe pain in trapezius. Right side is worse. Neurotoxin injections do help her pain.I would like to appeal to insurance company to go back to dysport use as she is not achieving same relief with the Dysport. 1. Cervical radiculopathy 2. Cervical dystonia Return in about 3 months (around 05/30/2025). Antwon Martin CNP 02/28/2025 documented in this [id number] History of Present illness Narrative* Shakri Crowley LPN - 02/21/2025 1:30 PM EDT Received Dysport x 3 vials from [facility]. documented in this [id number] History of Present illness Narrative* Shakir Crowley LPN - 02/20/2025 9:19 AM EDT Dysport approved by [employer] [id number] 02/17/25-05/20/25. documented in this [id number] History of Present illness Narrative* Shakir Crowley LPN - 02/17/2025 2:59 PM EDT PA for Dysport started at cover my meds with [employer]. documented in this [id number] History of Present illness Narrative* Shakir Crowley LPN - 02/15/2025 3:14 PM EDT [facility] called office patient's Dysport will be delivered 02/21 to [place] office. documented in this [id number] History of Present illness Narrative* Shakir Crowley LPN - 02/14/2025 9:42 AM EDT Prescription for Dysport phoned into [facility] [phone]. Pharmacy will contact patient for delivery set up to office. documented in this [id number] History of Present illness Narrative* Kendra Harry, GEORGE - 01/09/2025 3:45 PM EST Patient Name: Oswaldo Morel Patient : 1985 Primary Care Provider: Aaron Leigh MD Referred By: Jesus Alvarez CNP Referral Diagnosis: Diabetes Type 2 Start Time: 1345 End Time: 1430 Nutrition Diagnosis: Overweight/Obesity related to excessive energy intake as evidenced by BMI> 25 and diet history. Goal Progress: I will drink 2 water bottles at work daily-met. I will limit eating out to 2 times aweek-partially met. I will start tracking my foods in November and get back on track with diet - notmet. I will work on decreasing stress level by using my phone robert 2-3 times a week-partially met. Nutrition Goals: I will walk my dog 2 times a week and do yoga video 2 times a week. Will start logging my foods on my food robert. Follow Up: Follow up appointment scheduled by patient Assessment: Pt reports recent illness and continued stress from caring for father has made making changes difficult. Pt reached to to area agency on aging for additional help and feels this will helpallow her more free time if she is getting more help. Pt using dexcom CGM and since starting on Mounjaro has significantly improved her time in range. Has not noticed a significant change in appetitebut is at starting dose. Pt does note blood sugars less then 100 feels like low and pt will often over treat causing hypoglycemia. Pt feels she has been eating slightly more with eating our recently and with holiday. Wt gain of 8.5# in the last month noted. Pt feels logging her foods will help keepher on track with calories and carbohydrate amounts and would like to work on finding time to add this to her routine. Current diet with three meals. Doing well with adding fruit and vegetables to meals, healthy snacks with yogurt. Pt continues to struggle with adding routine exercise with needing to be home with her dad and also knee problems. Reason for Visit: wt management, DM Height: 64 Current Weight: 264.5# BMI: 45 BMI Classification: Obese Class III (>40.0) Weight History:8.5# wt gain in one month Wt Readings from Last 10 Encounters: 07/23/22 113.4 kg (250 lb) 06/23/22 113.4 kg (250 lb) 04/10/21 113.4 kg (250 lb) 05/09/20 113.4 kg (250 lb) 12/27/19 113.4 kg (250 lb) 12/20/19 113.4 kg (250 lb) 12/20/19 113.4 kg (250 lb) 12/14/19 111.1 kg (245 lb) 12/08/19 111.1 kg (245 lb) 10/19/19 108.9 kg (240 lb) Diet History/Recall: 3 meals a day with snacks Food Purchase/Prep: self Breakfast: smoothie with fruit, flax, carrots, glucerna drink Lunch: rice-1 cup, broccoli, chicken Dinner: beef and noodles and vegetable or chicken and mashed potatoes, vegetables Snacks: yogurt Daily Fluids: water- 4 bottles/day or more Meals Away From Home: was down to 2 times a week but back up to 3 times a week PMHx: Past Medical History: Diagnosis Date Atrial fibrillation (HCC) Disease of thyroid gland Hypertension Osteoarthritis osteoarthritis Current/Pertinent Medications: Current Outpatient Medications: Accu-Chek Guide Me Glucose Mtr Misc, USE TO TEST BLOOD SUGAR ONCE DAILY, Disp: , Rfl: Accu-Chek Guide test strips strips, USE 1 STRIP TO TEST ONCE DAILY, Disp: , Rfl: atenolol (TENORMIN) 25 MG tablet, Take 0.5 (one-half) tablet (12.5 mg total) by mouth daily ., Disp: , Rfl: escitalopram oxalate (LEXAPRO) 5 MG tablet, Take 1 (one) tablet (5 mg total) by mouth daily ., Disp: , Rfl: icosapent ethyL 1 gram cap, , Disp: , Rfl: Januvia 100 mg tablet, Take 1 (one) tablet (100 mg total) by mouth daily ., Disp: , Rfl: levothyroxine (SYNTHROID, LEVOTHROID) 100 MCG tablet, Take 1 (one) tablet (100 mcg total) by mouth once daily ., Disp: , Rfl: lisinopril (PRINIVIL,ZESTRIL) 5 MG tablet, Take 1 (one) tablet (5 mg total) by mouth daily ., Disp:, Rfl: meloxicam (MOBIC) 15 MG tablet, Take 1 (one) tablet (15 mg total) by mouth daily ., Disp: , Rfl: metFORMIN (GLUCOPHAGE-XR) 500 MG 24 hr tablet, Take 1 (one) tablet (500 mg total) by mouth daily with breakfast ., Disp: , Rfl: methylPREDNISolone (Medrol, Valeria,) 4 mg tablet, follow package directions . (Patient not taking: Reported on 12/06/2024 .), Disp: 21 tablet, Rfl: 0 Mounjaro 2.5 mg/0.5 mL Pen, INJECT 2.5MG SUBCUTANEOUS ROUTE EVERY WEEK FOR 4 WEEKS, Disp: , Rfl: norethindrone (MICRONOR) 0.35 mg tablet, , Disp: , Rfl: rosuvastatin (CRESTOR) 10 MG tablet, Take 1 (one) tablet (10 mg total) by mouth daily ., Disp: , Rfl: Lab Values: CGM 1 month results TIR 69% High 27% Very high 4% Low and very low 0% GMI 7.3 Lab Results Component Value Date HGBA1C 7.1 (H) 03/01/2021 HGBA1C 6.9 (H) 07/07/2020 HGBA1C 5.9 (H) 09/06/2019 Lab Results Component Value Date CHOL 240 (H) 03/01/2021 CHOL 226 (H) 07/07/2020 Lab Results Component Value Date TRIG 365 (H) 03/01/2021 TRIG 350 (H) 07/07/2020 Lab Results Component Value Date HDL 36 (L) 03/01/2021 HDL 34 (L) 07/07/2020 No results found for: LDL Current Activity Level: Sedentary Estimated Nutritional Needs: Calorie Needs: 1800kcal/day (see assessment) Intervention/Education Provided: hypoglycemia, exercise, portion control, eating out, hydration Patient/Family Education: Learner: patient Readiness: action - ready to set action plan and implement Method: explanation and handout Response: needs reinforcement Education Materials Provided: goal sheet Monitoring/Evaluation: Weight, Food Record/Recall, Meal Planning, Physical Activity, Medication Management, Goal Assessment This note has been communicated to referring healthcare provider. Kendra Harry RDN, [facility] Office documented in this [id number] History of Present illness Narrative* Francoise Hicks MA - 12/07/2024 3:00 PM EST ANXIETY/DEPRESSION- Patient her for anxiety/depression. Patient current medications listed on record. Associated sx include stable .Substance abuse - NONE . HYPERTENSION- She presents for follow-up of hypertension. Pt specifically denies headaches, palpitations, and shortness of breath. Current medication regimen is as listed in this record. Blood pressure readings: Pt states they take BP PRN. BP readings averaging 120s-130s HYPOTHYROIDISM- She presents for follow up of hypothyroidism. Current symptoms related to thyroid: denies fatigue, weight changes, heat/cold intolerance, bowel and skin changes, and cardiovascular symptoms. Lab Results Component Value Date TSH 2.420 12/02/2024 TSH 3.130 08/26/2024 TSH 1.930 04/17/2024 T4FREE 1.16 12/02/2024 T4FREE 1.20 08/26/2024 T4FREE 1.07 04/17/2024 TYPE 2 DM - Pt present to the office for evaluation of type 2 diabetes. Pt is overall doing well, with glucosesfor the most part averaging 190's. Pt checks blood sugars 2-3 times a day and PRN. No wide fluctuations in glucoses. Tolerating meds well. Denies change in vision, neuropathy, urinary frequency or frequent infections. Pt states they do check their feet for sores and/or ulcers. Pt is not currently seeing podiatry. Pt last diabetic eye exam 11/2022. Lab Results Component Value Date HGBA1C 7.2 (H) 12/02/2024 BP Readings from Last 3 Encounters: 12/06/24 128/90 12/01/24 118/80 10/04/24 (!) 154/116 Wt Readings from Last 3 Encounters: 12/06/24 117.3 kg (258 lb 9.6 oz) 12/01/24 118.8 kg (262 lb) 11/07/24 117 kg (258 lb) * Carmen Mckeon PA-C - 12/07/2024 3:00 PM EST ANXIETY/DEPRESSION- Patient her for anxiety/depression. Patient current medications listed on record. Associated sx include stable .Substance abuse - NONE . HYPERTENSION- She presents for follow-up of hypertension. Pt specifically denies headaches, palpitations, and shortness of breath. Current medication regimen is as listed in this record. Blood pressure readings: Pt states they take BP PRN. BP readings averaging 120s-130s HYPOTHYROIDISM- She presents for follow up of hypothyroidism. Current symptoms related to thyroid: denies fatigue, weight changes, heat/cold intolerance, bowel and skin changes, and cardiovascular symptoms. Lab Results Component Value Date TSH 2.420 12/02/2024 TSH 3.130 08/26/2024 TSH 1.930 04/17/2024 T4FREE 1.16 12/02/2024 T4FREE 1.20 08/26/2024 T4FREE 1.07 04/17/2024 TYPE 2 DM - Pt present to the office for evaluation of type 2 diabetes. Pt is overall doing well, with glucosesfor the most part averaging 190's. Pt checks blood sugars 2-3 times a day and PRN. No wide fluctuations in glucoses. Tolerating meds well. Denies change in vision, neuropathy, urinary frequency or frequent infections. Pt states they do check their feet for sores and/or ulcers. Pt is not currently seeing podiatry. Pt last diabetic eye exam 11/2022. Lab Results Component Value Date HGBA1C 7.2 (H) 12/02/2024 BP Readings from Last 3 Encounters: 12/07/24 (!) 139/93 12/06/24 128/90 12/01/24 118/80 Wt Readings from Last 3 Encounters: 12/07/24 118 kg (260 lb 3.2 oz) 12/06/24 117.3 kg (258 lb 9.6 oz) 12/01/24 118.8 kg (262 lb) Review of Systems Constitutional: Negative for fatigue and fever. HENT: Negative for ear pain and sinus pain. Eyes: Negative for visual disturbance. Respiratory: Negative for cough and shortness of breath. Cardiovascular: Negative for chest pain, palpitations and leg swelling. Gastrointestinal: Negative for diarrhea, nausea and vomiting. Genitourinary: Negative for dysuria and frequency. Musculoskeletal: Negative for myalgias. Skin: Negative for rash. Neurological: Negative for weakness, numbness and headaches. Psychiatric/Behavioral: Negative for confusion, self-injury, sleep disturbance and suicidal ideas. The patient is nervous/anxious. Objective: Blood pressure (!) 139/93, pulse 104, weight 118 kg (260 lb 3.2 oz), last menstrual period 11/14/2024, SpO2 96%, not currently . Results for orders placed or performed in visit on 12/02/24 T4 FREE Result Value Ref Range FREE T4 1.16 0.78 - 2.19 NG/DL TSH Result Value Ref Range TSH 2.420 0.465 - 4.680 uIU/ML LIPID PANEL W CALCULATED LDL Result Value Ref Range CHOLESTEROL 184 107 - 217 MG/DL TRIGLYCERIDE 280 (H) 0 - 150 MG/DL HDL CHOLESTEROL 47 33 - 75 MG/DL LDL CHOLESTEROL, CALCULATED 81 <100 MG/DL VLDL Cholesterol, Calculated 56 (H) 5 - 25 MG/DL TCHOL/HDL RATIO, MANUAL ENTER 3.91 RATIO HEMOGLOBIN A1C Result Value Ref Range HEMOGLOBIN A1C 7.2 (H) 0 - 6 % Estimated Average Glucose 160 mg/dL COMPREHENSIVE METABOLIC PANEL Result Value Ref Range Glucose 127 (H) 70 - 100 MG/DL BUN 18 7 - 20 MG/DL CREATININE SERUM 0.59 (L) 0.70 - 1.20 MG/DL SODIUM 134 (L) 137 - 145 MMOL/L Potassium 4.5 3.5 - 5.1 MMOL/L CHLORIDE 101 98 - 107 MMOL/L CALCIUM 9.6 8.4 - 10.2 MG/DL PROTEIN, TOTAL 7.6 6.3 - 8.2 GM/DL Albumin 4.6 3.5 - 5.0 G/dl BILIRUBIN, TOTAL 0.3 0.2 - 1.3 MG/DL AST 23 14 - 36 IU/L ALKALINE PHOSPHATASE 79 38 - 126 IU/L CARBON DIOXIDE (CO2) 23 22 - 30 MMOL/L A/G Ratio 1.5 RATIO ALT 23 <35 IU/L ESTIMATED GFR, NON AMER 120 ml/min/1.73sq.m ESTIMATED GFR, 145 ml/min/1.73sq.m GFR COMMENT Average GFR for 40-49 years old = 99. CBC,PLATELETS Result Value Ref Range WBC (WHITE BLOOD COUNT) 12.8 (H) 3.6 - 11.0 10*3/uL RBC 5.11 4.0 - 5.4 10*6/uL HEMOGLOBIN (HGB) 14.2 12.0 - 16.0 G/DL HEMATOCRIT (HCT) 43.5 36.0 - 48.0 % MEAN CELL VOLUME 85.2 80.0 - 100.0 FL Mean Cell HGB 27.7 26.0 - 35.0 PG MEAN CELL HGB CONCENTRATION 32.6 27.0 - 37.0 G/DL RBC DISTRIBUTION 15.8 (H) 11.5 - 14.5 % PLATELET COUNT 415 (H) 130 - 400 10*3/uL MEAN PLATELET VOLUME 7.8 7.4 - 11.0 FL MICROALBUMIN/CREATININE RATIO Result Value Ref Range CREATININE, MG/DL, URINE 72.7 MG/DL MICROALBUMIN URINE RANDOM 10.6 0.0 - 16.7 mg/L MICROALBUMIN/CREATININE RATIO 14.6 1.3 - 30.0 mg MALB/g CREAT Physical Exam Vitals and nursing note reviewed. Constitutional: General: She is not in acute distress. HENT: Head: Normocephalic and atraumatic. Eyes: Extraocular Movements: Extraocular movements intact. Pupils: Pupils are equal, round, and reactive to light. Neck: Vascular: No carotid bruit. Cardiovascular: Rate and Rhythm: Normal rate and regular rhythm. Pulses: Normal pulses. Heart sounds: No murmur heard. No gallop. Pulmonary: Effort: Pulmonary effort is normal. No respiratory distress. Breath sounds: No wheezing or rhonchi. Musculoskeletal: Right lower leg: No edema. Left lower leg: No edema. Skin: General: Skin is warm and dry. Capillary Refill: Capillary refill takes less than 2 seconds. Findings: No rash. Neurological: Mental Status: She is alert and oriented to person, place, and time. Psychiatric: Mood and Affect: Mood normal. Thought Content: Thought content normal. Assessment and Plan: 1. Anxiety and depression Stable, refill sent. - escitalopram 10 MG tablet; Take 1 tablet by mouth daily. Dispense: 90 tablet; Refill: 1 2. Gastroesophageal reflux disease without esophagitis Stable, refill sent. - Pantoprazole (Protonix) [address] tablet DR; Take 1 tablet by mouth daily. Dispense: 90 tablet; Refill: 1 3. Nasal congestion 4. Paroxysmal atrial fibrillation Stable, refill sent. - Atenolol 50 MG tablet; Take 1 tablet by mouth daily. Dispense: 90 tablet; Refill: 1 5. Type 2 diabetes mellitus without complication, without long-term current use of insulin Stable, refill sent. - metFORMIN-XR 500 MG Tab SR 24 HR; Take 2 tablets by mouth 2 times daily. 2 tablets bid Dispense: 360 tablet; Refill: 1 Carmen Mckeon PA-C 12/07/2024 documented in this [facility]01-07-2025 History of Present illness Narrative* Jesus Alvarez CNP - 12/06/2024 2:30 PM EST Subjective History of Present Illness Diabetes Thyroid Problem Type 2 Diabetes:Today is patients fourth visit to the office for dexcom download and lab review. She states she was diagnosed with type 2 diabetes about 3 years ago. Family history of diabetes include her mom, dad, and brother. She is currently taking Metformin XR 500 mg 2 tablets twice daily, Lantus 20 units daily, Ozempic 2mg weekly, and Jardiance 10 mg daily. She is also using Humalog sliding scale with meals 3 times a day. Typically this is about 10 units with each meal. She was previously on Mounjaro but this was stopped when she was trying to get . This is on hold for now. Labs demonstrated hemoglobin A1c =7.2% down from 7.5% down from 9.0% up from 8.7%, blood srzdbfp=426, IYF=088, LDL = 81, triglycerides = 280. She is currently using the [employer] personal CGM now. She eats three meals and one snack daily. She drinks mostly water. She tries to eat balanced meals with more protein and less carbs. She recently had couple of cortisone injections. She has met with our certified breastfeeding educator, but not the security systems manager yet. Her last visit with Ophthalmology was November 2023 and she denies complications from diabetes. She sees Dr. Presley Romero at [facility]. She states her right great toe is numb on the medial side from previous ingrown toenail removal. She does have some chronic pain to the right foot due to an extra bone (?), she saw Dr. García on 05/24/2024. She denies pancreatitis. She has kidney stones but no oth er kidney issues. She has personal history of PVC's and just found out she had a mild heart attack in her sleep in April and sees Dr. Khalil with Cardiology. She does have a great amount of stress in her life right now. She states her mother a year ago and she has been caring for her father since. She is also taking care of her brother. She is also dealing with personal relationship issues and she works at the [employer]. Blood pressure at [employer] today in office. No LUZMA or ARB therapy.She is currently taking the rosuvastatin daily again. Hypothyroidism: She is also here for lab follow up on hypothyroidism/ag's. States she was 12years old when she was diagnosed with thyroid issues and possible PCOS. States she was 14 years oldwhen she received the diagnosis of Ag's thyroiditis. Family history of thyroid disease includes both of her parents who had hypothyroidism. She states that she does not take biotin but she wastaking vitamins as she was trying to get but this is on hold for now. She states she does not take her vitamin anymore. Previous thyroid labs were drawn with vitamin interference. Labs on 12/02/2024 demonstrated TSH=2.42 with free t4=1.16. Labs on 08/26/2024 demonstrate TSH=3.13, with Free T4=1.20. Previous labs without vitamin demonstrate TSH = 1.93 down from 3.59, Free T4=1.07, and Free T3=2.86.All thyroid antibodies are negative. Patient currently takes levothyroxine 112 mcg daily. She does take this first thing in the morning but with her other medications which did include a multivitamin but she has since this. She does wait about 1-2 hours to eat food. She is complaining of some fatigue but due to her hyperglycemia she is unsure if these are related to her thyroid or not. She is not complaining of dysphagia, dyspnea, difficulty sleeping, or heart palpitations. She does have a history of PVCs. She does see Dr. Khalil with Cardiology. She has never had a thyroid ultrasound. Objective Review of Systems Nurse Note: Review of Systems Constitutional: Negative for fatigue and unexpected weight change. Eyes: Negative for visual disturbance. Respiratory: Negative for shortness of breath. Gastrointestinal: Negative for constipation, diarrhea, nausea and vomiting. Endocrine: Positive for polydipsia and polyuria. Neurological: Negative for numbness. Psychiatric/Behavioral: Negative for sleep disturbance. Nursing Assessment: Physical Exam Vitals: Blood pressure 128/90, pulse 90, resp. rate 16, height 1.626 m (5' 4), weight 117.3 kg (258 lb 9.6 oz), not currently . Physical Exam Constitutional: General: She is not in acute distress. Appearance: Normal appearance. HENT: Head: Normocephalic. Eyes: Conjunctiva/sclera: Conjunctivae normal. Neck: Vascular: No carotid bruit. Comments: Thyroid palpates soft, no nodules felt. Negative Marcello test. No acanthosis to neck. Cardiovascular: Rate and Rhythm: Normal rate and regular rhythm. Pulses: Normal pulses. Heart sounds: Normal heart sounds. Pulmonary: Effort: Pulmonary effort is normal. No respiratory distress. Breath sounds: Normal breath sounds. Musculoskeletal: Cervical back: Normal range of motion and neck supple. No tenderness. Skin: General: Skin is warm and dry. Neurological: General: No focal deficit present. Mental Status: She is alert and oriented to person, place, and time. Psychiatric: Mood and Affect: Mood normal. Behavior: Behavior normal. Neurological Exam Mental Status Alert. Oriented to person, place, and time. Foot exam: Needs done at follow up. Assessment and Plan Type 2 diabetes: Discussed CGM download and labs with patient today. CGM data is demonstrating timein target range of 45% with a GMI = 8.0%. 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 Based on CGM data and discussion with patient we are going to continue with the metformin, Humalog, and Lantus 20 units daily. We will increase Jardiance to 25 mg weekly. She is going to continue with Ozempic 2 mg until we see if she can get Mounjaro. I sent Mounjaro 2.5 mg weekly to try to obtain better glycemic control. She has met with our certified breastfeeding educator, but not the dietitian yet. I would like to see her back in 3 months with CGM download and labs. Hypothyroidism: Discussed discussed thyroid labs. Previous negative thyroid antibodies. TSH is at target. Patient has no complaints. I would like for her to continue the Levothyroxine 112 mcg daily. Would like to see her back in 3 months with labs for this as well. All questions answered and she understands and agrees to proceed. We will continue to follow for diabetes and hypothyroidism. * Brent Ott - 12/06/2024 2:30 PM EST Nurse Note: Review of Systems Constitutional: Positive for fatigue. Negative for unexpected weight change. Eyes: Negative for visual disturbance. Respiratory: Negative for shortness of breath. Gastrointestinal: Negative for constipation, diarrhea, nausea and vomiting. Endocrine: Positive for polydipsia and polyuria. Neurological: Negative for numbness. Psychiatric/Behavioral: Negative for sleep disturbance. Nursing Assessment: [facility]* Jesus Alvarez CNP - 12/06/2024 2:30 PM ESTAssociated Order(s): RI CONTINUOUS GLUCOSE MONITORING ANALYSIS I&R CGM download demonstrates time in target range 45%, high 41%, very high 14%, low/very low 0% GMI = 8.0%. CGM data is demonstrating postprandial hyperglycemia. Overnight hyperglycemia occasionally depending on foods. Most overnight look reasonable. Based on CGM download discussion with patient we are going to continue Lantus, metformin, and Ozempic. We are going to try to change Ozempic to Mounjaro. And we are going to increase Jardiance. Patient is going to continue using her Humalog sliding scale with her meals. We will re-evaluate in 3 months. [facility] Procedure note* Jesus Alvarez CNP - 12/06/2024 2:30 PM ESTAssociated Order(s): RI CONTINUOUS GLUCOSE MONITORING ANALYSIS I&R CGM download demonstrates time in target range 45%, high 41%, very high 14%, low/very low 0% GMI = 8.0%. CGM data is demonstrating postprandial hyperglycemia. Overnight hyperglycemia occasionally depending on foods. Most overnight look reasonable. Based on CGM download discussion with patient we are going to continue Lantus, metformin, and Ozempic. We are going to try to change Ozempic to Mounjaro. And we are going to increase Jardiance. Patient is going to continue using her Humalog sliding scale with her meals. We will re-evaluate in 3 months. [facility] NoteSubjective: Oswaldo Morel is a 39 y.o. female here for Injections (Dysport for Cervical Dystonia) Oswaldo has not done Botox for over a year due to plans to try to conceive. She is no longer wanting to get at this time so she would like to resume her treatment. Today she states she having equal resulting pain in right side of neck still. Her injection into her right shouder is helping. Her muscles in her right side of neck are still very painful.Her insurance company is now only approving Dysport as neurotoxin. HPI: Cervical spine tenderness on palpation.Pain is exacerbated by stressors such as stress and fatigue. Patient has morning benefit but pain in her cervical muscles as day progresses. Notices that she has shoulder tension and often pull up without patient control. Xrays confirm several levels of cervical degeneration. Again , mornings are when she usually feels the best. 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 This exacerbates the pain and she can't hold her head up straight with pain. When Again emg is negative.PT hurts her. She has tried chiropractic and deep tissue massage and benefits are minimal and short-lived. This is evaluated as a personal injury. Pain is located anterior, lateral, neck, trapezius and levator muscle stiffness. Heat helps some but it is minimal. . Discomfort is described as aching, numbness, sharp/stabbing and tingling. Symptoms are exacerbated by repetitive movements, overhead movements and lying on the shoulder. She also complains of occipital headaches and intrascapular burning.Pain is in middle of right shoulder blade pain is stabbing especially at night when temperature drops. Indication for Injection Dystonia Substance Injected: Dysport. A total of 980 units of botulinum toxin A (Dysport ) were diluted into 5 ml of normal saline for a concentration of 200 units per 1 ml of normal saline. A 26-gauge, 1.5 inch-long needle was with 0.5 ml syringes. Muscle Units / Inj Vol / Inj # of Inj Total Units Cervical paraspinals B/L 40 2 80 L. Levator Scapulae 60 4 240 R. Levator Scapulae 60 4 240 L. Trapezius 60 3 180 R. Trapezius 120 2 240 Other: 0.0 ml 0 Total Amount Administered 980 Waste units: 20 Total Amount Used 980 The following portions of the patient's history were reviewed and updated as appropriate: allergies, current medications, past surgical history and problem list. Review of Systems Constitutional: Negative for chills, diaphoresis and fever. Respiratory: Negative for shortness of breath. Cardiovascular: Negative for chest pain, palpitations and leg swelling. Genitourinary: Negative for frequency and urgency. Musculoskeletal: Positive for myalgias, neck pain and neck stiffness. Skin: Negative for color change, rash and wound. Neurological: Negative for dizziness, syncope and weakness. Psychiatric/Behavioral: Negative for agitation. The patient is not nervous/anxious. Objective: There were no vitals taken for this visit. Physical Exam Constitutional: Appearance: She is well-developed. HENT: Head: Normocephalic and atraumatic. Eyes: Pupils: Pupils are equal, round, and reactive to light. Cardiovascular: Rate and Rhythm: Normal rate and regular rhythm. Pulmonary: Effort: Pulmonary effort is normal. Breath sounds: Normal breath sounds. Abdominal: General: Bowel sounds are normal. Palpations: Abdomen is soft. Musculoskeletal: General: Tenderness present. Cervical back: Normal range of motion and neck supple. Skin: General: Skin is warm and dry. Neurological: Mental Status: She is alert and oriented to person, place, and time. Deep Tendon Reflexes: Reflexes are normal and symmetric. Assessment/Plan: She is still having cervical tightness and severe pain in trapezius. Right side is worse. Neurotoxin injections do help her pain. 1. Cervical dystonia No follow-ups on file. Antwon Martin CNP 12/06/2024 AUTHENTICATED BY ANTWON MARTIN, ON 12/11/2024 17:39:08[facility] 12-06-2024 History of Present illness Narrative* Antwon Martin CNP - 12/06/2024 1:09 PM EST Subjective: Oswaldo Morel is a 39 y.o. female here for Injections (Dysport for Cervical Dystonia) Oswaldo has not done Botox for over a year due to plans to try to conceive. She is no longer wantingto get at this time so she would like to resume her treatment. Today she states she having equal resulting pain in right side of neck still. Her injection into her right shouder is helping. Her muscles in her right side of neck are still very painful.Her insurance company is now only approving Dysport as neurotoxin. HPI: Cervical spine tenderness on palpation.Pain is exacerbated by stressors such as stress and fatigue. Patient has morning benefit but pain in her cervical muscles as day progresses. Notices that she has shoulder tension and often pull up without patient control. Xrays confirm several levels of cervical degeneration. Again , mornings are when she usually feels the best. 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 This exacerbates the pain and she can't hold her head up straight with pain. When Again emg is negative.PT hurts her. She has tried chiropractic and deep tissue massage and benefits are minimal and short-lived. This is evaluated as a personal injury. Pain is located anterior, lateral, neck, trapezius and levator muscle stiffness. Heat helps some but it is minimal. . Discomfort is described as aching, numbness, sharp/stabbing and tingling. Symptoms are exacerbated by repetitive movements, overhead movements and lying on the shoulder. She also complains of occipital headaches and intrascapular burning.Pain is in middle of right shoulder blade pain is stabbing especially at night when temperature drops. Indication for Injection Dystonia Substance Injected: Dysport. A total of 980 units of botulinum toxin A (Dysport ) were diluted into 5 ml of normal saline for a concentration of 200 units per 1 ml of normal saline. A 26- gauge, 1.5 inch-long needle was with 0.5 ml syringes. Muscle Units / Inj Vol / Inj # of Inj Total Units Cervical paraspinals B/L 40 2 80 L. Levator Scapulae 60 4 240 R. Levator Scapulae 60 4 240 L. Trapezius 60 3 180 R. Trapezius 120 2 240 Other: 0.0 ml 0 Total Amount Administered 980 Waste units: 20 Total Amount Used 980 The following portions of the patient's history were reviewed and updated as appropriate: allergies, current medications, past surgical history and problem list. Review of Systems Constitutional: Negative for chills, diaphoresis and fever. Respiratory: Negative for shortness of breath. Cardiovascular: Negative for chest pain, palpitations and leg swelling. Genitourinary: Negative for frequency and urgency. Musculoskeletal: Positive for myalgias, neck pain and neck stiffness. Skin: Negative for color change, rash and wound. Neurological: Negative for dizziness, syncope and weakness. Psychiatric/Behavioral: Negative for agitation. The patient is not nervous/anxious. Objective: There were no vitals taken for this visit. Physical Exam Constitutional: Appearance: She is well-developed. HENT: Head: Normocephalic and atraumatic. Eyes: Pupils: Pupils are equal, round, and reactive to light. Cardiovascular: Rate and Rhythm: Normal rate and regular rhythm. Pulmonary: Effort: Pulmonary effort is normal. Breath sounds: Normal breath sounds. Abdominal: General: Bowel sounds are normal. Palpations: Abdomen is soft. Musculoskeletal: General: Tenderness present. Cervical back: Normal range of motion and neck supple. Skin: General: Skin is warm and dry. Neurological: Mental Status: She is alert and oriented to person, place, and time. Deep Tendon Reflexes: Reflexes are normal and symmetric. Assessment/Plan: She is still having cervical tightness and severe pain in trapezius. Right side is worse. Neurotoxin injections do help her pain. 1. Cervical dystonia No follow-ups on file. Antwon Martin CNP 12/06/2024 documented in this [id number] History of Present illness Narrative* Sejal Alfaro LPN - 12/01/2024 3:30 PM EST [id number] HBVB V \-0-+ * Sravani Talavera - 12/01/2024 3:30 PM EST SLEEP Deposit Score - 4 CPAP/BIPAP/APAP Pressure - [id number] Most Recent Sleep Study - 07/2021 Oxygen Use - no If so, how many liters and is it PRN, Nocturnal, or continuous? Patient is benefiting from PAP therapy--YES notices difference without DME - [facility] Referred by- Dr. 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 N/A Daytime Sleepiness - YES sometimes Are you able to take naps during the day - YES If so, how often? More so recently d/t not getting enough sleep Do you experience tossing or turning at night? NO Restless legs - NO If so, what medications are you currently taking or have previously been prescribed for RLS? N/A Are you currently or have you previously been treated for ADHD, Narcolepsy, or Fatigue? - NO If so, what medications are you currently taking or have previously been prescribed for ADHD, Narcolepsy, or Fatigue? N/A Waking with gasping/shortness of breath - NO Difficulty concentrate- - NO Waking with headache- NO Significant weight change- YES lost 15 lbs in past year Have you ever been on medication management for weight loss, spoke with anyone about weight loss surgery/procedures, or have you had a surgical procedure to help with weight loss? YES Ozempic Pain 0-10- 0 If yes, Location- Upcoming surgeries?- NO Has witnessed apnea ( some body told patient that they stop breathing in their sleep) - YES Med Refills (that we prescribe) - no 1 year follow up to review compliance. occupational ther 09/04/21. No issues with machine. States she isn't getting as much sleep so napping more. * Coreen Lanier, MEMBER SERVICES COORDINATOR-VICE PRESIDENT [employer] - 12/01/2024 3:30 PM EST HPI: SUBJECTIVE: Oswaldo Morel is a 39 y.o. female being seen today for chronic sleep disorder follow up for continuity of medical care. Most recent sleep testing showed: moderate obstructive sleep apnea (AHI 15.6/hr,REM 42.7 HR) with sleep related hypoxia (bernardino 76%) and problem is likely to result in a high risk morbidity without treatment. Currently on home APAP at 5-20 cmH2O. Patient most recent PAP machine is from 09/04/2021. Patient stated that she is benefiting from the therapy. Her compliance is excellent. Average AHI from the compliance report was 0.5. Patient states improvements with her daytime fatigue or excessive daytime sleepiness with PAP therapy. Current sleep problems/side effects include: None. Patient denies snoring during therapy. Patient denies other sleep concerns today. History and Allergies Allergies Allergen Reactions Bee Venom Swelling Pet Dander [*Animal Dander] Seasonal Past Medical History: Diagnosis Date Anxiety 05/2021 Arrhythmia PAC's not afib per patient Cardiac angina Depression Diabetes mellitus Type 2 Essential hypertension, benign Fatty liver GERD (gastroesophageal reflux disease) History of chicken pox History of kidney stones Hyperlipidemia Hypothyroidism Obesity Osteoarthritis Osteoarthritis Other sleep apnea Renal disease kidney stones Sinusitis Past Surgical History: Procedure Laterality Date CYSTOURETHROSCOPY W/ URETEROSCOPY/PYELOSCOPY W/ LITHOTRIPSY INCL STENT INSERTION Bilateral 03/17/2024 Laterality: Bilateral; Surgeon: Robson Parnell MD; Location: [facility] UROGRAPHY/PYELOGRAPHY RETROGRADE Bilateral 03/17/2024 Laterality: Bilateral; Surgeon: Robson Parnell MD; Location: [facility] CYSTOURETHROSCOPY W/ URETEROSCOPY/PYELOSCOPY DIAGNOSTIC Right 06/13/2021 Laterality: Right; Surgeon: Juan Dominique MD; Location: [facility] OR TONSILLECTOMY ADENOIDECTOMY 2012 TOE SURGERY age 13 Social History Socioeconomic History Marital status: Single Spouse name: Not on file Number of children: Not on file Years of education: Not on file Highest education level: Not on file Occupational History Employer: [employer] Tobacco Use Smoking status: Never Smokeless tobacco: Never Vaping Use Vaping status: Never Used Substance and Sexual Activity Alcohol use: Not Currently Alcohol/week: 2.0 standard drinks of alcohol Types: 2 Standard drinks or equivalent per week Comment: Special Social Occasions only Drug use: Never Sexual activity: Yes Partners: Male control/protection: Condom Other Topics Concern Service Not Asked Blood Transfusions Not Asked Caffeine Concern Not Asked Occupational Exposure No Hobby Hazards No Sleep Concern Not Asked Stress Concern Not Asked Weight Concern Not Asked Special Diet Not Asked Back Care Not Asked Exercise Not Asked Bike Helmet Not Asked Seat Belt Not Asked Domestic Violence No Social History Narrative Not on file Social Determinants of Health Financial Resource Strain: Not on file Food Insecurity: Not on file Transportation Needs: Not on file Physical Activity: Not on file Stress: Not on file Social Connections: Not on file Intimate Partner Violence: Not on file Housing Stability: Not on file Family History Problem Relation Age of Onset Diabetes Mother 12/02/22 Type II Kidney Disease Mother Hypertension Mother Lipid Disorder Mother Sudden Cardiac Mother Passed 12/02/22 Heart Failure Father Heart Disease - Other Father CHF Hypertension Father Lipid Disorder Father Other - Specify Father Dementia Fainting Father Depression Father Diabetes Father Type II Coronary Artery Disease Father Mental Illness Sister Mental Illness Sister schizophrenia; biploar Lipid Disorder Brother Hypertension Brother Myocardial Infarction Brother Diabetes Brother Diabetes Brother Type II Myocardial Infarction Brother 2022 Lipid Disorder Brother 2021 Hypertension Brother GI Disease Maternal Grandmother Lung Cancer Maternal Grandfather Colorectal Cancer Maternal Grandfather GI Disease Maternal Grandfather Cancer- Other Maternal Grandfather Heart Disease - Other Paternal Grandmother Stroke Paternal Grandmother Heart Disease - Other Paternal Grandfather Prostate Cancer Paternal Uncle 2022 Cancer- Other Paternal Aunt Breast Cancer Heart Disease - Other Paternal Aunt Heart Disease - Other Paternal Uncle Stroke Paternal Uncle Mental Illness Sister Bipolar Vitals: 12/01/24 1552 BP: 118/80 Pulse: 90 Resp: 16 SpO2: 95% Weight: 118.8 kg (262 lb) Height: 1.626 m (5' 4) Physical Examination Physical Exam Vitals and nursing note reviewed. Constitutional: General: She is not in acute distress. Appearance: She is well-developed. HENT: Head: Normocephalic and atraumatic. Right Ear: External ear normal. Left Ear: External ear normal. Eyes: General: Right eye: No discharge. Left eye: No discharge. Neck: Vascular: No JVD. Cardiovascular: Rate and Rhythm: Normal rate. Pulses: Normal pulses. Heart sounds: No murmur heard. No friction rub. No gallop. Pulmonary: Effort: Pulmonary effort is normal. No respiratory distress. Breath sounds: No wheezing. Musculoskeletal: General: No deformity. Normal range of motion. Cervical back: Normal range of motion and neck supple. Skin: General: Skin is warm and dry. Neurological: General: No focal deficit present. Mental Status: She is alert and oriented to person, place, and time. Psychiatric: Mood and Affect: Mood normal. Behavior: Behavior normal. Judgment: Judgment normal. GFDSXCV HBVB V \-0-+ SLEEP Deposit Score - 4 CPAP/BIPAP/APAP Pressure - [id number] Most Recent Sleep Study - 07/2021 Oxygen Use - no If so, how many liters and is it PRN, Nocturnal, or continuous? Patient is benefiting from PAP therapy--YES notices difference without DME - [facility] Referred by- Dr. 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 N/A Daytime Sleepiness - YES sometimes Are you able to take naps during the day - YES If so, how often? More so recently d/t not getting enough sleep Do you experience tossing or turning at night? NO Restless legs - NO If so, what medications are you currently taking or have previously been prescribed for RLS? N/A Are you currently or have you previously been treated for ADHD, Narcolepsy, or Fatigue? - NO If so, what medications are you currently taking or have previously been prescribed for ADHD, Narcolepsy, or Fatigue? N/A Waking with gasping/shortness of breath - NO Difficulty concentrate- - NO Waking with headache- NO Significant weight change- YES lost 15 lbs in past year Have you ever been on medication management for weight loss, spoke with anyone about weight loss surgery/procedures, or have you had a surgical procedure to help with weight loss? YES Ozempic Pain 0-10- 0 If yes, Location- Upcoming surgeries?- NO Has witnessed apnea ( some body told patient that they stop breathing in their sleep) - YES Med Refills (that we prescribe) - no 1 year follow up to review compliance. occupational ther 09/04/21. No issues with machine. States she isn't getting as much sleep so napping more. CURRENT MEDICATIONS: Current Outpatient Medications Medication Sig Dispense Refill AbobotulinumtoxinA (Dysport) 300 units Recon Soln 300 Units. APPLE CIDER VINEGAR PO Take by mouth daily. Aspirin [address] tablet Take 1 tablet by mouth daily. Atenolol 50 MG tablet Take 1 tablet by mouth daily. 90 tablet 1 Cetirizine 10 MG tablet Take 1 tablet by mouth daily. 30 tablet 2 COLOSTRUM PO Continuous Glucose Sensor (Dexcom G7 Sensor) Misc 1 Each by Unknown route As directed. 3 Each 3 Empagliflozin (Jardiance) 10 MG tablet Take 1 tablet by mouth every morning before breakfast. 30 tablet 3 escitalopram 5 MG tablet Take 1 tablet by mouth daily. 90 tablet 1 Flaxseed, Linseed, (GROUND FLAX SEEDS PO) fluticasone 50 MCG/ACT Suspension nasal spray 2 sprays by Nasal route daily. 16 g 1 Qfjcobc-Xznuab-Fv [facility] [place] [phone] MG tablet Icosapent Ethyl (Vascepa) 1 g capsule Take 2 capsules by mouth 2 times daily. 360 capsule 1 Insulin lispro, 1 Unit Dial, (HumaLOG KwikPen) 100 UNIT/ML Solution Pen-injector To use via slidingscale 3 times a day before meals as directed. 15 mL 3 Insulin Pen Needle (Pen Goldston) 32G X 4 MM Misc 1 Each by Unknown route 4 times daily. 200 Each 3 Lantus SoloStar 100 UNIT/ML Solution Pen-injector injection Inject 20 Units under the skin Every evening as needed. 15 mL 5 levothyroxine 112 MCG tablet Take 1 tablet by mouth daily. 90 tablet 1 metFORMIN-XR 500 MG Tab SR 24 HR Take 2 tablets by mouth 2 times daily. 2 tablets bid 360 tablet 1 Misc. Devices Misc by Unknown route. APAP [id number] DME: [facility] setup 09/04/21, on airview Mupirocin 2 % ointment Apply to affected area TID for 5 days 22 g 0 nitroGLYCERIN 0.[address] 1 tablet under tongue every 5 minutes as needed for Chest pain. max = 3 doses. If CP persists after 3rd dose, call 911 25 tablet 1 Nutritional Supplements (Glucerna 1.0 Adis/CarbSteady) Liquid Pantoprazole (Protonix) [address] tablet DR Take 1 tablet by mouth daily. 90 tablet 1 potassium citrate 10 MEQ (1080 MG) Tab CR Take 1 tablet by mouth 2 times daily. 60 tablet 11 Rosuvastatin 10 MG tablet Take 1 tablet by mouth daily. 90 tablet 1 Semaglutide, 2 MG/DOSE, (Ozempic, 2 MG/DOSE,) 8 MG/3ML Solution Pen-injector Inject 2 mg under the skin once a week. 3 mL 5 UltiGuard SafePack Pen Needle 32G X 4 MM Misc Inject 1 Needle under the skin 4 times daily. 200 Each 3 Sucralfate 1 g tablet Take 1 tablet by mouth every 6 hours. (Patient taking differently: Take 1 tablet by mouth as needed.) 30 tablet 1 No current facility-administered medications for this visit. Lungs: Clear to auscultation bilaterally. Heart: Regular in rate and rhythm. Abd: Soft and non-distended. Skin: No obvious rashes or cyanosis. Neuro: Grossly non-focal examination. MS: No joint erythema/edema. ROS Reviewed. Interpretation of sleep study and compliance report form was completed today and reviewed together with the patient during this visit. ASSESSMENT & PLAN: * KACIE * Sleep Related Hypoxia * Overweight * Home PAP Use * Reviewed CPAP Compliance Form * Patient was advised to continue with positive pressure therapy at home once received. * Patient was advised to adhere to a regular sleep hygiene habits. * Reinforced: adverse consequences of KACIE, compliance, wt loss, side sleeping if feasible, sleep hygiene (and avoid/minimize alcohol, sedative/respiratory depressant meds, nicotine/smoking cessation:quit), not driving/operating machinery while sleepy. * Patient will follow up in 1 year * New Supplies Ordered * Evaluation and Management visit that is part of an ongoing, longitudinal care relationship Discussed with patient: the physiology of Sleep Apnea, medical conditions associated with sleep apnea (DM, HTN, CAD, Depression, Stroke, Headaches, CHF, Heart Dysrhythmias) and treatment options. Advised patient to avoid activities that could harm self or others when tired/sleep, including driving and/or operating heavy machinery. Depending on polysomnography results: - Order PAP titration based on insurance requirements, if already on therapy continue therapy, or if symptomatic with high AHI complete another titration. - Will start/continue PAP therapy after results of PAP titration - I will have prescription sent to a [employer] company of choice- who will becalling patient in approximately next 1-2 weeks. - Patient should be eligible for new supplies approximately every 3-6 months, depending on your insurance coverage, [employer] company will inform patient of coverage - If patient mask does not fit well, contact [employer] company before 30 days are up to get a new mask without an additional charge - Insurance requires regular usage and periodic office follow ups for PAP therapy to continue to cover supplies Insurance Requirements: - Your insurance requires a [id number] follow up visit within 31-90 days period after starting PAP therapy. - Your insurance requires compliance with PAP therapy, which is at least 4 hours per night for 70% of the time. This must be done over at least 30 day period and must occur within the intial 31-90 day period after starting PAP therapy. - Your insurance also requires at least a yearly follow up to continue to pay for PAP therapy and supplies. A total of 28 minutes were spent at this encounter, and this includes obtaining and/or reviewing separately obtained history , performing exam, review of previous tests and results, independently interpreting results of tests and communicating results to the patient/family/caregiver, ordering medica tions/tests/procedures, counseling the patient and/family on plan of care, referring/communicating with other health manager critical care unit, as well as documenting the clinical information in the EHR. This includes face to face time and preparing to see the patient (review of tests) I personally reviewed selected chart notes, results, interpreted tests, imaging today before seeingthe pt; reviewed and discussed w/ pt, questions answered. Portions of this chart were created using [employer] electronic dictation. Please excuse any typographical or grammatical errors contained herein as a result. Some Elements copied from previous notes. I have updated where appropriate, and all reflect current medical decision making from today's encounter. VIKRAM Rodriguez [facility] History of Present illness Narrative* Shakir Crowley LPN - 11/29/2024 12:58 PM EST PA for Dysport inj 500 unit 11/28/24-02/26/25 [id number] with [facility]. documented in this [id number] History of Present illness Narrative* Antwon Martin CNP - 11/28/2024 2:00 PM EST 11/27/24 Oswaldo Wm Shirlene 1985 No chief complaint on file. HISTORY of Present Illness: Oswaldo Morel is a 39 y.o. year old female that presents today with No chief complaint on file. . Oswaldo Morel has had injections in the past. Last injection to right knee and right shoulder was over 3 months ago and they tolerated well. They have been treated w/ oral medications & injections. Patient denies new injury to the knees or shoulder. The following portions of the patient's history were reviewed and updated as appropriate: allergies, current medications, past surgical history and problem list Assessment No documentation. Referred By: No ref. provider found PAST MEDICAL HISTORY The patient's Medications, Allergies, Past Surgical History, Medical History, Family History and Social History were reviewed and can be found in their online medical record, and I have reviewed thisinformation with Oswaldo Morel at the time of their visit. They are significant for Past Medical History: Diagnosis Date Atrial fibrillation (HCC) Disease of thyroid gland Hypertension Osteoarthritis osteoarthritis PHYSICAL EXAM Ortho Exam Additional Notes: IMAGING Notes: none new today. Reviewed from last visit. IMPRESSION And PLAN: Cortisone injection today. Will follow up in 3 months if effective. Call if no improvement in 10 days. 1. Primary osteoarthritis of right knee 2. Primary osteoarthritis of right shoulder Antwon Martin CNP * Antwon Martin CNP - 11/28/2024 2:00 PM ESTAssociated Order(s): LG Jt Injection/Arthrocentesis: R knee Post-Procedure Diagnose(s): Primary osteoarthritis of right knee LG Jt Injection/Arthrocentesis: R knee Performed by: Antwon Martin CNP Authorized by: Antwon Martin CNP CPT 03859 - Large Joint Arthrocentesis: Consent given by: Patient Time out: Immediately prior to the procedure a time out was called Physician or proceduralist has discussed critical or nonroutine steps, procedure duration and anticipated blood loss: Yes Supporting Documentation: Indications: Pain Procedure Details: Location: Knee Site: R knee Prep: patient was prepped and draped in usual sterile fashion Needle size: 22 G Approach: Anterolateral Medications: 1 mL dexAMETHasone 4 mg/mL, 1 mL triamcinolone acetonide 40 mg/mL Anesthetic used: Lidocaine 1% and Bupivacaine 0.25% Anesthetic amount (mL): 3 Patient tolerance: Patient tolerated the procedure well with no immediate complications * Antwon Martin CNP - 11/28/2024 2:00 PM ESTAssociated Order(s): LG Jt Injection/Arthrocentesis: R subacromial bursa Post-Procedure Diagnose(s): Primary osteoarthritis of right shoulder LG Jt Injection/Arthrocentesis: R subacromial bursa Performed by: Antwon Martin CNP Authorized by: Antwon Martin CNP CPT 86277 - Large Joint Arthrocentesis: Consent given by: Patient Time out: Immediately prior to the procedure a time out was called Physician or proceduralist has discussed critical or nonroutine steps, procedure duration and anticipated blood loss: Yes Supporting Documentation: Indications: Pain Procedure Details: Location: Shoulder Site: R subacromial bursa Prep: patient was prepped and draped in usual sterile fashion Needle size: 22 G Approach: Posterior Medications: 1 mL dexAMETHasone 4 mg/mL, 1 mL triamcinolone acetonide 40 mg/mL Anesthetic used: Bupivacaine 0.25% Anesthetic amount (mL): 3 Patient tolerance: Patient tolerated the procedure well with no immediate complications documented in this [id number] NoteLG Jt Injection/Arthrocentesis: R subacromial bursa Performed by: Antwon Martin CNP Authorized by: Antwon Martin CNP CPT 06535 - Large Joint Arthrocentesis: Consent given by: Patient Time out: Immediately prior to the procedure a time out was called Physician or proceduralist has discussed critical or nonroutine steps, procedure duration and anticipated blood loss: Yes Supporting Documentation: Indications: Pain Procedure Details: Location: Shoulder Site: R subacromial bursa Prep: patient was prepped and draped in usual sterile fashion Needle size: 22 G Approach: Posterior Medications: 1 mL dexAMETHasone 4 mg/mL, 1 mL triamcinolone acetonide 40 mg/mL Anesthetic used: Bupivacaine 0.25% Anesthetic amount (mL): 3 Patient tolerance: Patient tolerated the procedure well with no immediate complications AUTHENTICATED BY ANTWON MARTIN, ON 11/28/2024 14:26:03[facility] 11-28-2024 NoteLG Jt Injection/Arthrocentesis: R knee Performed by: Antwon Martin CNP Authorized by: Antwon Martin CNP CPT 39282 - Large Joint Arthrocentesis: Consent given by: Patient Time out: Immediately prior to the procedure a time out was called Physician or proceduralist has discussed critical or nonroutine steps, procedure duration and anticipated blood loss: Yes Supporting Documentation: Indications: Pain Procedure Details: Location: Knee Site: R knee Prep: patient was prepped and draped in usual sterile fashion Needle size: 22 G Approach: Anterolateral Medications: 1 mL dexAMETHasone 4 mg/mL, 1 mL triamcinolone acetonide 40 mg/mL Anesthetic used: Lidocaine 1% and Bupivacaine 0.25% Anesthetic amount (mL): 3 Patient tolerance: Patient tolerated the procedure well with no immediate complications AUTHENTICATED BY ANTWON MARTIN, ON 11/28/2024 14:26:03[facility] 11-28-2024 Note11/27/24 Oswaldo Morel 1985 No chief complaint on file. HISTORY of Present Illness: Oswaldo Morel is a 39 y.o. year old female that presents today with No chief complaint on file. . Oswaldo Morel has had injections in the past. Last injection to right knee and right shoulder was over 3 months ago and they tolerated well. They have been treated w/ oral medications & injections. Patient denies new injury to the knees or shoulder. The following portions of the patient's history were reviewed and updated as appropriate: allergies, current medications, past surgical history and problem list Assessment No documentation. Referred By: No ref. provider found PAST MEDICAL HISTORY The patient's Medications, Allergies, Past Surgical History, Medical History, Family History and Social History were reviewed and can be found in their online medical record, and I have reviewed this information with Oswaldo Morel at the time of their visit. They are significant for Past Medical History: Diagnosis Date Atrial fibrillation (HCC) Disease of thyroid gland Hypertension Osteoarthritis osteoarthritis PHYSICAL EXAM Ortho Exam Additional Notes: IMAGING Notes: none new today. Reviewed from last visit. IMPRESSION And PLAN: Cortisone injection today. Will follow up in 3 months if effective. Call if no improvement in 10 days. 1. Primary osteoarthritis of right knee 2. Primary osteoarthritis of right shoulder Antwon Martin CNP AUTHENTICATED BY ANTWON MARTIN, ON 11/28/2024 14:26:03[facility] 11-09-2024 History of Present illness Narrative* Kendra Harry, RD - 11/09/2024 3:55 PM EST Patient Name: Oswaldo Morel Patient : 1985 Primary Care Provider: Aaron Leigh MD Referred By: Jesus Alvarez CNP Referral Diagnosis: Diabetes Type 2 Start Time: 1355 End Time: 1640 Nutrition Diagnosis: Overweight/Obesity related to excessive energy intake as evidenced by BMI> 25 and diet history. Goal Progress:I will increase my vegetable intake at dinner daily to help control portions with carbohydrate- not met I will trial chicken and salmon pouches instead of tuna daily for lunch -met Nutrition Goals: I will drink 2 water bottles at work daily. I will limit eating out to 2 times a week. I will start tracking my foods in November and get back on track with diet. I will work on decreasing stress level by using my phone robert 2- 3 times a week. Follow Up: Follow up appointment scheduled by patient Assessment: Pt having difficulty keeping on track with healthy eating. She has been under much stress with moving her father into her home and selling the house. This has also lead to aggravation in knee and shoulder pain. Pt current activity level is down due to pain. She is also having difficultyadjusting to cooking for 2 and her father has different food preferences then her and finding a balance with this has been a challenge. Pt notes stress levels high and feels she needs to focus on this right now and will revisit diet more in the new year. Pt notes has decreased eating vegetables at night and has been eating out more. She is working to find foods that both her and her father enjoy and substitutes for quick meals when they do not eat the same thing. Pt has been drinking less waterand due to recent UTI would like to work on increasing intake. Reason for Visit: follow up Support Person Present: none Height: 64 Current Weight: 256# BMI: 44 BMI Classification: Obese Class III (>40.0) Weight History: stable Wt Readings from Last 10 Encounters: 07/23/22 113.4 kg (250 lb) 06/23/22 113.4 kg (250 lb) 04/10/21 113.4 kg (250 lb) 05/09/20 113.4 kg (250 lb) 12/27/19 113.4 kg (250 lb) 12/20/19 113.4 kg (250 lb) 12/20/19 113.4 kg (250 lb) 12/14/19 111.1 kg (245 lb) 12/08/19 111.1 kg (245 lb) 10/19/19 108.9 kg (240 lb) Diet History/Recall: 3 meals with snacks Food Purchase/Prep: self Breakfast: glucerna, applesauce, coffee with creamer Lunch: rice, broccoli, tuna or chicken pouch Dinner: mac and cheese with peas, broccoli and ground chicken Snacks: fruit, yogurt, is going to start making smoothies for meal replacements and mini smoothies for snacks Daily Fluids: water, recent UTI and pt was encouraged to increase intake nicholas due to history of kidney stones Meals Away From Home: 2-3 times a week PMHx: Past Medical History: Diagnosis Date Atrial fibrillation (HCC) Disease of thyroid gland Hypertension Osteoarthritis osteoarthritis Current/Pertinent Medications: Current Outpatient Medications: abobotulinumtoxinA (Dysport) 500 unit SolR, Inject 1140 units IM into divided doses every 12 weeks ., Disp: 3 each, Rfl: 3 Accu-Chek Guide Me Glucose Mtr Misc, USE TO TEST BLOOD SUGAR ONCE DAILY, Disp: , Rfl: Accu-Chek Guide test strips strips, USE 1 STRIP TO TEST ONCE DAILY, Disp: , Rfl: atenolol (TENORMIN) 25 MG tablet, Take 0.5 (one-half) tablet (12.5 mg total) by mouth daily ., Disp: , Rfl: Botox 200 unit SolR, INJECT 380 UNITS INTRAMUSCULARLY EVERY 12 WEEKS (DISCARD UNUSED AFTER FIRST USE) (Patient not taking: Reported on 05/18/2024 .), Disp: 2 each, Rfl: 0 escitalopram oxalate (LEXAPRO) 5 MG tablet, Take 1 (one) tablet (5 mg total) by mouth daily ., Disp: , Rfl: icosapent ethyL 1 gram cap, , Disp: , Rfl: Januvia 100 mg tablet, Take 1 (one) tablet (100 mg total) by mouth daily ., Disp: , Rfl: levothyroxine (SYNTHROID, LEVOTHROID) 100 MCG tablet, Take 1 (one) tablet (100 mcg total) by mouth once daily ., Disp: , Rfl: lisinopril (PRINIVIL,ZESTRIL) 5 MG tablet, Take 1 (one) tablet (5 mg total) by mouth daily ., Disp:, Rfl: meloxicam (MOBIC) 15 MG tablet, Take 1 (one) tablet (15 mg total) by mouth daily ., Disp: , Rfl: metFORMIN (GLUCOPHAGE-XR) 500 MG 24 hr tablet, Take 1 (one) tablet (500 mg total) by mouth daily with breakfast ., Disp: , Rfl: methylPREDNISolone (Medrol, Valeria,) 4 mg tablet, follow package directions ., Disp: 21 tablet, Rfl: 0 Mounjaro 2.5 mg/0.5 mL Pen, INJECT 2.5MG SUBCUTANEOUS ROUTE EVERY WEEK FOR 4 WEEKS, Disp: , Rfl: norethindrone (MICRONOR) 0.35 mg tablet, , Disp: , Rfl: onabotulinumtoxinA (Botox) 200 unit SolR, INJECT 380 UNITS INTRAMUSCULARLY EVERY 84 DAYS . (Patienttaking differently: INJECT 380 UNITS INTRAMUSCULARLY EVERY 84 DAYS .), Disp: 2 each, Rfl: 0 onabotulinumtoxinA (Botox) 200 unit SolR, INJECT 380 UNITS INTRAMUSCULARLY EVERY 84 DAYS, Disp: 2 each, Rfl: 0 onabotulinumtoxinA (Botox) 200 unit SolR, INJECT 380 UNITS INTRAMUSCULARLY EVERY 84 DAYS, Disp: 2 each, Rfl: 0 onabotulinumtoxinA (Botox) 200 unit SolR, INJECT 380 UNITS INTRAMUSCULARLY EVERY 84 DAYS, Disp: 2 each, Rfl: 0 rosuvastatin (CRESTOR) 10 MG tablet, Take 1 (one) tablet (10 mg total) by mouth daily ., Disp: , Rfl: Lab Values: Pt notes increase in blood sugar reading recently and state she relates this to stress. No blood sugar readings obtained today. Lab Results Component Value Date HGBA1C 7.1 (H) 03/01/2021 HGBA1C 6.9 (H) 07/07/2020 HGBA1C 5.9 (H) 09/06/2019 Lab Results Component Value Date CHOL 240 (H) 03/01/2021 CHOL 226 (H) 07/07/2020 Lab Results Component Value Date TRIG 365 (H) 03/01/2021 TRIG 350 (H) 07/07/2020 Lab Results Component Value Date HDL 36 (L) 03/01/2021 HDL 34 (L) 07/07/2020 No results found for: LDL Current Activity Level: Lightly Active- down some but pt walking 8000 steps most days Estimated Nutritional Needs: Calorie Needs: 1800kcal/day (see assessment) Intervention/Education Provided: healthy drinks, exercise, tracking goals, eating out Patient/Family Education: Learner: patient Readiness: contemplation - ambivalent about change - having difficulty reaching goals and making diet changes due to stress Method: explanation and handout Response: needs reinforcement Education Materials Provided: goal sheet Monitoring/Evaluation: Weight, Food Record/Recall, Meal Planning, Physical Activity, Medication Management, Goal Assessment This note has been communicated to referring healthcare provider. ATILIO Elder RDN Office documented in this [id number] History of Present illness Narrative* Omid Coffey CNP - 11/07/2024 2:00 PM EST Chief Complaint Patient presents with Follow-up Kidney Stones HPI: Sandra Morel is a 38 y.o. female presenting today for a follow up. She is previously known for kidney stones. She is status post URS/LL in February 2024. She had metabolic stone labs done which were WNL.Litholink showed hypercalcemia, hyperoxaluria, and low urine PH and she was started on potassium citrate at her last visit. ANDRES from April 2024 showed possible bilateral, non obstructing renal stones. She feels well today. Denies flank pain or gross hematuria. UA- >1000 glucose ANDRES, Dr. Parnell notes, uric acid, phosphate, PTH, CMP, urine culture reviewed ROS: Nurse Note: Review of Systems Constitutional: Negative. HENT: Negative. Eyes: Negative. Respiratory: Negative. Cardiovascular: Negative. Gastrointestinal: Negative. Endocrine: Negative. Genitourinary: Negative. Musculoskeletal: Negative. Skin: Negative. Allergic/Immunologic: Negative. Neurological: Negative. Hematological: Negative. Psychiatric/Behavioral: Negative. Nursing Assessment: Physical Exam Patient presents as a follow up for kidney stones (3 month) Patient states she was having urgency but states that she was diagnosed with a UTI and has been following up with PCP. Patient states a few moments of bladder spasms but states she has been doing a lot of lifting and moving out of the normal lately. Denies flank pain and hematuria. Patient states she needs a refill of potassium citrate Lab Results Component Value Date APPEARANCE clear 11/07/2024 COLOR yellow 11/07/2024 SPECIFICGRAV 1.020 11/07/2024 BLOOD neg 11/07/2024 PH 6 11/07/2024 PROTEIN neg 11/07/2024 UROBILINOGEN 0.2 11/07/2024 NITRITE neg 11/07/2024 LEUKOCYTE neg 11/07/2024 LEUKOCESTUR NEGATIVE 05/31/2021 History Allergies Allergen Reactions Bee Venom Swelling Pet Dander [*Animal Dander] Seasonal has body mass index of 40.0-49.9; Kidney stone; Cervical dystonia; Cervical radiculopathy; Chronic left SI joint pain; Essential hypertension; Hypothyroidism (acquired); Pain in right knee; Pain of right shoulder region; Primary osteoarthritis of right shoulder; Type 2 diabetes mellitus with hypergl ycemia (A1C > 6.49); History of nephrolithiasis; and Multiple punctate calcifications of kidney on their problem list. Current Outpatient Medications Medication Sig Dispense Refill APPLE CIDER VINEGAR PO Take by mouth daily. Aspirin [address] tablet Take 1 tablet by mouth daily. Atenolol 50 MG tablet Take 1 tablet by mouth daily. 90 tablet 1 Cetirizine 10 MG tablet Take 1 tablet by mouth daily. 30 tablet 2 Continuous Glucose Sensor (Dexcom G7 Sensor) Misc 1 Each by Unknown route As directed. 3 Each 3 Empagliflozin (Jardiance) 10 MG tablet Take 1 tablet by mouth every morning before breakfast. 30 tablet 3 escitalopram 5 MG tablet Take 1 tablet by mouth daily. 90 tablet 1 fluticasone 50 MCG/ACT Suspension nasal spray 2 sprays by Nasal route daily. 16 g 1 Icosapent Ethyl (Vascepa) 1 g capsule Take 2 capsules by mouth 2 times daily. 360 capsule 1 Insulin lispro, 1 Unit Dial, (HumaLOG KwikPen) 100 UNIT/ML Solution Pen-injector To use via slidingscale 3 times a day before meals as directed. 15 mL 3 Insulin Pen Needle (Pen Goldston) 32G X 4 MM Misc 1 Each by Unknown route 4 times daily. 200 Each 3 Lantus SoloStar 100 UNIT/ML Solution Pen-injector injection Inject 20 Units under the skin Every evening as needed. 15 mL 5 levothyroxine 112 MCG tablet Take 1 tablet by mouth daily. 90 tablet 1 metFORMIN-XR 500 MG Tab SR 24 HR Take 2 tablets by mouth 2 times daily. 2 tablets bid 360 tablet 1 Misc. Devices Misc by Unknown route. APAP [id number] DME: [facility] setup 09/04/21, on airview multivitamin tablet Take 1 tablet by mouth daily. Mupirocin 2 % ointment Apply to affected area TID for 5 days 22 g 0 nitroGLYCERIN 0.[address] 1 tablet under tongue every 5 minutes as needed for Chest pain. max = 3 doses. If CP persists after 3rd dose, call 911 25 tablet 1 Pantoprazole (Protonix) [address] tablet DR Take 1 tablet by mouth daily. 90 tablet 1 Rosuvastatin 10 MG tablet Take 1 tablet by mouth daily. 90 tablet 1 Semaglutide, 2 MG/DOSE, (Ozempic, 2 MG/DOSE,) 8 MG/3ML Solution Pen-injector Inject 2 mg under the skin once a week. 3 mL 5 UltiGuard SafePack Pen Needle 32G X 4 MM Misc Inject 1 Needle under the skin 4 times daily. 200 Each 3 potassium citrate 10 MEQ (1080 MG) Tab CR Take 1 tablet by mouth 2 times daily. 60 tablet 2 Sucralfate 1 g tablet Take 1 tablet by mouth every 6 hours. (Patient taking differently: Take 1 tablet by mouth as needed.) 30 tablet 1 No current facility-administered medications for this visit. family history includes Colorectal Cancer in her maternal grandfather; Depression in her father; Diabetes in her brother, brother, father, and mother; Fainting in her father; GI Disease in her maternal grandfather and maternal grandmother; Heart Disease - Other in her father, paternal grandfather, and paternal grandmother; Heart Failure in her father; Hypertension in her brother, father, and mother; Kidney Disease in her mother; Lipid Disorder in her brother, brother, father, and mother; Lung Cancer in her maternal grandfather; Mental Illness in her sister and sister; Myocardial Infarction inher brother and brother; Other - Specify in her father; Sudden Cardiac in her mother. Past Medical History: Diagnosis Date Anxiety 05/2021 Arrhythmia PAC's not afib per patient Cardiac angina Depression Diabetes mellitus Type 2 Essential hypertension, benign Fatty liver GERD (gastroesophageal reflux disease) History of chicken pox History of kidney stones Hyperlipidemia Hypothyroidism Obesity Osteoarthritis Osteoarthritis Other sleep apnea Renal disease kidney stones Sinusitis Past Surgical History: Procedure Laterality Date CYSTOURETHROSCOPY W/ URETEROSCOPY/PYELOSCOPY W/ LITHOTRIPSY INCL STENT INSERTION Bilateral 03/17/2024 Laterality: Bilateral; Surgeon: Robson Parnell MD; Location: [facility] UROGRAPHY/PYELOGRAPHY RETROGRADE Bilateral 03/17/2024 Laterality: Bilateral; Surgeon: Robson Parnell MD; Location: [facility] CYSTOURETHROSCOPY W/ URETEROSCOPY/PYELOSCOPY DIAGNOSTIC Right 06/13/2021 Laterality: Right; Surgeon: Juan Dominique MD; Location: [facility] OR TONSILLECTOMY ADENOIDECTOMY 2012 TOE SURGERY age 13 Social History Socioeconomic History Marital status: Single Spouse name: Not on file Number of children: Not on file Years of education: Not on file Highest education level: Not on file Occupational History Employer: [employer] Tobacco Use Smoking status: Never Smokeless tobacco: Never Vaping Use Vaping status: Never Used Substance and Sexual Activity Alcohol use: Not Currently Alcohol/week: 2.0 standard drinks of alcohol Types: 2 Standard drinks or equivalent per week Comment: Special Social Occasions only Drug use: Not Currently Sexual activity: Yes Partners: Male control/protection: Condom, Pill Other Topics Concern Service Not Asked Blood Transfusions Not Asked Caffeine Concern Not Asked Occupational Exposure No Hobby Hazards No Sleep Concern Not Asked Stress Concern Not Asked Weight Concern Not Asked Special Diet Not Asked Back Care Not Asked Exercise Not Asked Bike Helmet Not Asked Seat Belt Not Asked Domestic Violence No Social History Narrative Not on file Social Determinants of Health Financial Resource Strain: Not on file Food Insecurity: Not on file Transportation Needs: Not on file Physical Activity: Not on file Stress: Not on file Social Connections: Not on file Intimate Partner Violence: Not on file Housing Stability: Not on file Physical Exam: Resp 16 Ht 1.626 m (5' 4) Wt 117 kg (258 lb) BMI 44.29 kg/m Smoking Status Never Body mass index is 44.29 kg/m . Symptoms as in HPI Assessment/Plan: History of nephrolithiasis- Status post URS/LL. Last ANDRES showed possible bilateral, non obstructingrenal stones. She is asymptomatic today. We discussed management options. Potassium citrate refilled. She will get a BMP checked in about 6 months and we will call with abnormal results. She will follow up in about 1 year with a renal ultrasound prior. She was advised for new onset symptoms to call the office or go to the ED. Patient was advised to call with any questions or concerns. If symptoms worsen patient was advised to follow up in our office or the Emergency Dept. Benefits, Risks, Contraindications, and Complications of recommended treatments were explained the patient understands and agrees to proceed with plan. * Lidia Mancilla - 11/07/2024 2:00 PM EST Nurse Note: Review of Systems Constitutional: Negative. HENT: Negative. Eyes: Negative. Respiratory: Negative. Cardiovascular: Negative. Gastrointestinal: Negative. Endocrine: Negative. Genitourinary: Negative. Musculoskeletal: Negative. Skin: Negative. Allergic/Immunologic: Negative. Neurological: Negative. Hematological: Negative. Psychiatric/Behavioral: Negative. Nursing Assessment: Physical Exam Patient presents as a follow up for kidney stones (3 month) Patient states she was having urgency but states that she was diagnosed with a UTI and has been following up with PCP. Patient states a few moments of bladder spasms but states she has been doing a lot of lifting and moving out of the normal lately. Denies flank pain and hematuria. Patient states she needs a refill of potassium citrate Lab Results Component Value Date APPEARANCE clear 11/07/2024 COLOR yellow 11/07/2024 SPECIFICGRAV 1.020 11/07/2024 BLOOD neg 11/07/2024 PH 6 11/07/2024 PROTEIN neg 11/07/2024 UROBILINOGEN 0.2 11/07/2024 NITRITE neg 11/07/2024 LEUKOCYTE neg 11/07/2024 LEUKOCESTUR NEGATIVE 05/31/2021 documented in this [facility]11-05-2024 History of Present illness Narrative* Urmila Raymundo LPN - 10/04/2024 8:00 AM EST URINARY PROBLEMS- Oswaldo Morel is complaining of flank pain, urinary frequency, urinary urgency, bruising to belly. She has had symptoms for 2-3 weeks days. Fever - No. Back pain - Yes: left side worse, b/l . Nausea or vomiting - No. Treatments tried - Bactrim. History of recurrent urinary tract infections?: no Pt would like to discuss urine culture results from walk in clinic. Appointment on 09/24/2024 Component Date Value Ref Range Status SPECIMEN DESCRIPTION 09/24/2024 URINE CLEAN CATCH Final QUANTITATION 09/24/2024 10,000-20,000 C/C/ML Final RESULT-CULT 09/24/2024 KLEBSIELLA PNEUMONIAE Final Testing performed at [place], [place] [address] Report Status 09/24/2024 09/27/2024 Final FINAL ORGANISM IDENTIFIED 09/24/2024 KLEBSIELLA PNEUMONIAE Final * Carmen Mckeon PA-C - 10/04/2024 8:00 AM EST URINARY PROBLEMS- Oswaldo Morel is complaining of flank pain, urinary frequency, urinary urgency, bruising to belly. She has had symptoms for 2-3 weeks days. Fever - No. Back pain - Yes: left side worse, b/l . Nausea or vomiting - No. Treatments tried - Bactrim. History of recurrent urinary tract infections?: no Pt would like to discuss urine culture results from walk in clinic. Appointment on 09/24/2024 Component Date Value Ref Range Status SPECIMEN DESCRIPTION 09/24/2024 URINE CLEAN CATCH Final QUANTITATION 09/24/2024 10,000-20,000 C/C/ML Final RESULT-CULT 09/24/2024 KLEBSIELLA PNEUMONIAE Final Testing performed at [facility], [place], [place] [address] Report Status 09/24/2024 09/27/2024 Final FINAL ORGANISM IDENTIFIED 09/24/2024 KLEBSIELLA PNEUMONIAE Final Review of Systems Constitutional: Negative for fatigue and fever. HENT: Negative for ear pain and sinus pain. Eyes: Negative for visual disturbance. Respiratory: Negative for cough and shortness of breath. Cardiovascular: Negative for chest pain, palpitations and leg swelling. Gastrointestinal: Positive for diarrhea and nausea. Negative for vomiting. Genitourinary: Positive for dysuria and frequency. Musculoskeletal: Negative for myalgias. Skin: Negative for rash. Neurological: Negative for weakness, numbness and headaches. Psychiatric/Behavioral: Negative for confusion. Objective: Blood pressure (!) 154/116, pulse 96, weight 117.4 kg (258 lb 12.8 oz), SpO2 98%, not currently . Physical Exam Vitals and nursing note reviewed. Constitutional: General: She is not in acute distress. HENT: Head: Normocephalic and atraumatic. Eyes: Extraocular Movements: Extraocular movements intact. Pupils: Pupils are equal, round, and reactive to light. Cardiovascular: Rate and Rhythm: Normal rate and regular rhythm. Pulses: Normal pulses. Heart sounds: No murmur heard. No gallop. Pulmonary: Effort: Pulmonary effort is normal. No respiratory distress. Breath sounds: No wheezing or rhonchi. Abdominal: Tenderness: There is right CVA tenderness and left CVA tenderness. Musculoskeletal: Right lower leg: No edema. Left lower leg: No edema. Skin: General: Skin is warm and dry. Capillary Refill: Capillary refill takes less than 2 seconds. Findings: No rash. Neurological: Mental Status: She is alert and oriented to person, place, and time. Psychiatric: Mood and Affect: Mood normal. Thought Content: Thought content normal. Assessment and Plan: 1. Lower abdominal pain Urine shows small amount of blood. We will send it for culture and obtain labs due to continued CVA, nausea, urinary frequency. If labs are normal we will wait for culture results before additional antibiotic therapy. Due to the blood, if culture is normal we will have her follow up with urology. Discussed red flag signs and symptoms that would warrant immediate medical attention, patient (and/orguardian) voiced understanding. - CBC, EDIF, PLATELET; Future - COMPREHENSIVE METABOLIC PANEL; Future - LIPASE; Future Carmen Mckeon PA-C 10/04/2024 [facility] History of Present illness Narrative* Noemi Robin APRN-MARBELLA - 09/24/2024 11:45 AM EDT HPI Oswaldo Morel female 1985 presents to the [facility] with Chief Complaint Patient presents with Urinary Frequency Patient c/o flank pain,urinary frequency and urinary urgency x 2 weeks Patient presents with concerns for UTI. Her symptoms started 2 weeks ago. She reports bilateral flank pain, urinary frequency and urgency. Abdominal pain, fevers. She also has a history of kidney stones. History Allergies Allergen Reactions Bee Venom Swelling Pet Dander [*Animal Dander] Seasonal Current Outpatient Medications Medication Sig APPLE CIDER VINEGAR PO Take by mouth daily. Aspirin [address] tablet Take 1 tablet by mouth daily. Atenolol 50 MG tablet Take 1 tablet by mouth daily. Cetirizine 10 MG tablet Take 1 tablet by mouth daily. Continuous Glucose Sensor (Dexcom G7 Sensor) Misc 1 Each by Unknown route As directed. Empagliflozin (Jardiance) 10 MG tablet Take 1 tablet by mouth every morning before breakfast. escitalopram 5 MG tablet Take 1 tablet by mouth daily. fluticasone 50 MCG/ACT Suspension nasal spray 2 sprays by Nasal route daily. Icosapent Ethyl (Vascepa) 1 g capsule Take 2 capsules by mouth 2 times daily. Insulin lispro, 1 Unit Dial, (HumaLOG KwikPen) 100 UNIT/ML Solution Pen-injector To use via slidingscale 3 times a day before meals as directed. Insulin Pen Needle (Pen Goldston) 32G X 4 MM Misc 1 Each by Unknown route 4 times daily. Lantus SoloStar 100 UNIT/ML Solution Pen-injector injection Inject 20 Units under the skin Every evening as needed. levothyroxine 112 MCG tablet Take 1 tablet by mouth daily. metFORMIN-XR 500 MG Tab SR 24 HR Take 2 tablets by mouth 2 times daily. 2 tablets bid Misc. Devices Misc by Unknown route. APAP [id number] DME: [facility] setup 09/04/21, on airview multivitamin tablet Take 1 tablet by mouth daily. Mupirocin 2 % ointment Apply to affected area TID for 5 days nitroGLYCERIN 0.[address] 1 tablet under tongue every 5 minutes as needed for Chest pain. max = 3 doses. If CP persists after 3rd dose, call 911 Pantoprazole (Protonix) [address] tablet DR Take 1 tablet by mouth daily. potassium citrate 10 MEQ (1080 MG) Tab CR Take 1 tablet by mouth 2 times daily. Rosuvastatin 10 MG tablet Take 1 tablet by mouth daily. Semaglutide, 2 MG/DOSE, (Ozempic, 2 MG/DOSE,) 8 MG/3ML Solution Pen-injector Inject 2 mg under the skin once a week. Sucralfate 1 g tablet Take 1 tablet by mouth every 6 hours. (Patient taking differently: Take 1 tablet by mouth as needed.) UltiGuard SafePack Pen Needle 32G X 4 MM Misc Inject 1 Needle under the skin 4 times daily. Family History Problem Relation Age of Onset Diabetes Mother 12/01/22 Kidney Disease Mother Hypertension Mother Lipid Disorder Mother Sudden Cardiac Mother Passed 12/02/22-OK- in sleep Heart Failure Father Heart Disease - Other Father CHF Hypertension Father Lipid Disorder Father Other - Specify Father Fainting Father Depression Father Diabetes Father Mental Illness Sister Mental Illness Sister schizophrenia; biploar Lipid Disorder Brother Hypertension Brother Myocardial Infarction Brother Diabetes Brother Diabetes Brother Myocardial Infarction Brother STEMI 2021 Lipid Disorder Brother 2021 GI Disease Maternal Grandmother Lung Cancer Maternal Grandfather Colorectal Cancer Maternal Grandfather GI Disease Maternal Grandfather Heart Disease - Other Paternal Grandmother Heart Disease - Other Paternal Grandfather Past Medical History: Diagnosis Date Anxiety 05/2021 Arrhythmia PAC's not afib per patient Cardiac angina Depression Diabetes mellitus Type 2 Essential hypertension, benign Fatty liver GERD (gastroesophageal reflux disease) History of chicken pox History of kidney stones Hyperlipidemia Hypothyroidism Obesity Osteoarthritis Osteoarthritis Other sleep apnea Renal disease kidney stones Sinusitis Past Surgical History: Procedure Laterality Date CYSTOURETHROSCOPY W/ URETEROSCOPY/PYELOSCOPY W/ LITHOTRIPSY INCL STENT INSERTION Bilateral 03/17/2024 Laterality: Bilateral; Surgeon: Robson Parnell MD; Location: [facility] UROGRAPHY/PYELOGRAPHY RETROGRADE Bilateral 03/17/2024 Laterality: Bilateral; Surgeon: Robson Parnell MD; Location: [facility] CYSTOURETHROSCOPY W/ URETEROSCOPY/PYELOSCOPY DIAGNOSTIC Right 06/13/2021 Laterality: Right; Surgeon: Juan Dominique MD; Location: [facility] TONSILLECTOMY ADENOIDECTOMY 2012 TOE SURGERY age 13 Social History Socioeconomic History Marital status: Single Spouse name: Not on file Number of children: Not on file Years of education: Not on file Highest education level: Not on file Occupational History Employer: [employer] Tobacco Use Smoking status: Never Smokeless tobacco: Never Vaping Use Vaping status: Never Used Substance and Sexual Activity Alcohol use: Not Currently Alcohol/week: 2.0 standard drinks of alcohol Types: 2 Standard drinks or equivalent per week Comment: Special Social Occasions only Drug use: Not Currently Sexual activity: Yes Partners: Male control/protection: Condom, Pill Other Topics Concern Service Not Asked Blood Transfusions Not Asked Caffeine Concern Not Asked Occupational Exposure No Hobby Hazards No Sleep Concern Not Asked Stress Concern Not Asked Weight Concern Not Asked Special Diet Not Asked Back Care Not Asked Exercise Not Asked Bike Helmet Not Asked Seat Belt Not Asked Domestic Violence No Social History Narrative Not on file Social Determinants of Health Financial Resource Strain: Not on file Food Insecurity: Not on file Transportation Needs: Not on file Physical Activity: Not on file Stress: Not on file Social Connections: Not on file Intimate Partner Violence: Not on file Housing Stability: Not on file ROS Review of Systems 8 systems reviewed with patient, negative unless specifically mentioned in history of present illness PHYSICAL EXAM Visit Vitals BP 132/84 (BP Location: Left arm, BP Position: Sitting) Pulse 89 Temp 98.2 F (36.8 C) (Temporal) Resp 16 Ht 1.626 m (5' 4) Wt 117 kg (258 lb) LMP 08/30/2024 (Exact Date) SpO2 98% BMI 44.29 kg/m Physical Exam Vitals and nursing note reviewed. Constitutional: General: She is not in acute distress. Appearance: Normal appearance. She is well-developed. She is not ill-appearing or diaphoretic. HENT: Head: Normocephalic. Nose: Nose normal. Mouth/Throat: Mouth: Mucous membranes are moist. Cardiovascular: Rate and Rhythm: Normal rate and regular rhythm. Heart sounds: Normal heart sounds. Pulmonary: Effort: Pulmonary effort is normal. No respiratory distress. Breath sounds: Normal breath sounds. Abdominal: General: Bowel sounds are normal. There is no distension. Palpations: Abdomen is soft. Tenderness: There is no abdominal tenderness. There is no right CVA tenderness or left CVA tenderness. Musculoskeletal: Cervical back: Neck supple. Skin: General: Skin is warm and dry. Capillary Refill: Capillary refill takes less than 2 seconds. Neurological: General: No focal deficit present. Mental Status: She is alert and oriented to person, place, and time. Psychiatric: Mood and Affect: Mood normal. Behavior: Behavior normal. RESULTS Recent Results (from the past 2 hour(s)) POCT URINE DIPSTICK AUTOMATED Collection Time: 09/24/24 12:11 PM Result Value Ref Range POCT APPEARANCE, URINE clear POCT COLOR, URINE yellow POCT GLUCOSE, URINE 1,000 mg/dL POCT BILIRUBIN, URINE neg POCT KETONES, URINE neg mg/dL POCT SPECIFIC GRAVITY, URINE 1.015 1.001 - 1.035 POCT BLOOD, URINE trace POCT PH, URINE 5.5 5 - 7 POCT PROTEIN, URINE neg mg/dL POCT UROBILINOGEN, URINE 0.2 0 - 2 E.U./dL POCT NITRITE, URINE neg POCT LEUKOCYTE, URINE neg POCT ESTERASE, URINE POCT BACTERIA, URINE POCT WBC, URINE POCT RBC, URINE POCT AMORPHOUS, URINE POCT CASTS, QUANTITATIVE, URINE POCT SQUAMOUS EPIS, URINE POCT RENAL EPIS, URINE POCT CRYSTALS, URINE POCT URINE COMMENTS, URINE POCT MICROSCOPIC ASSESSMENT/PLAN 1. Bilateral flank pain 2. Urinary frequency Orders Placed This Encounter URINE CULTURE POCT URINE DIPSTICK AUTOMATED Urine is not overly concerning for UTI. Will send culture and treat accordingly. She plans to follow up with the primary care provider or urologist. If symptoms worsen patient was advised to follow up in our office, primary care provider or the Emergency Dept. Benefits, Risks, Contraindications, and Complications of recommended treatments were explained. The patient understands and agrees to proceed with plan. VIKRAM Carter 09/24/2024 [facility] History of Present illness Narrative* Shanice Berger, MEMBER SERVICES COORDINATOR-VICE PRESIDENT [employer] - 09/02/2024 5:45 PM EDT Images from the original note were not included. HPI Oswaldo Morel female 1985 presents to the [facility] with Chief Complaint Patient presents with Finger Pain Pt states that she clipped some skin on her finger and she is concerned for infections. Patient presents to the clinic with swelling to the right 4th digit near the nail. Patient states that she has been soaking the finger in warm salt water and Don dish soap. She states that the fingerhas drained a couple of times some yellow drainage. Patient was diabetic. She denies any fever/chills. History Allergies Allergen Reactions Bee Venom Swelling Pet Dander [*Animal Dander] Seasonal Current Outpatient Medications Medication Sig APPLE CIDER VINEGAR PO Take by mouth daily. Aspirin [address] tablet Take 1 tablet by mouth daily. Atenolol 50 MG tablet Take 1 tablet by mouth daily. Cetirizine 10 MG tablet Take 1 tablet by mouth daily. Continuous Glucose Sensor (Dexcom G7 Sensor) Misc 1 Each by Unknown route As directed. Empagliflozin (Jardiance) 10 MG tablet Take 1 tablet by mouth every morning before breakfast. escitalopram 5 MG tablet Take 1 tablet by mouth daily. fluticasone 50 MCG/ACT Suspension nasal spray 2 sprays by Nasal route daily. Icosapent Ethyl (Vascepa) 1 g capsule Take 2 capsules by mouth 2 times daily. Insulin lispro, 1 Unit Dial, (HumaLOG KwikPen) 100 UNIT/ML Solution Pen-injector To use via slidingscale 3 times a day before meals as directed. Insulin Pen Needle (Pen Goldston) 32G X 4 MM Misc 1 Each by Unknown route 4 times daily. Lantus SoloStar 100 UNIT/ML Solution Pen-injector injection Inject 20 Units under the skin Every evening as needed. levothyroxine 112 MCG tablet Take 1 tablet by mouth daily. metFORMIN-XR 500 MG Tab SR 24 HR Take 2 tablets by mouth 2 times daily. 2 tablets bid Misc. Devices Misc by Unknown route. APAP [id number] DME: [facility] setup 09/04/21, on airview multivitamin tablet Take 1 tablet by mouth daily. nitroGLYCERIN 0.[address] 1 tablet under tongue every 5 minutes as needed for Chest pain. max = 3 doses. If CP persists after 3rd dose, call 911 Pantoprazole (Protonix) [address] tablet DR Take 1 tablet by mouth daily. potassium citrate 10 MEQ (1080 MG) Tab CR Take 1 tablet by mouth 2 times daily. Rosuvastatin 10 MG tablet Take 1 tablet by mouth daily. Semaglutide, 2 MG/DOSE, (Ozempic, 2 MG/DOSE,) 8 MG/3ML Solution Pen-injector Inject 2 mg under the skin once a week. Sucralfate 1 g tablet Take 1 tablet by mouth every 6 hours. (Patient taking differently: Take 1 tablet by mouth as needed.) UltiGuard SafePack Pen Needle 32G X 4 MM Misc Inject 1 Needle under the skin 4 times daily. cephALEXin 500 MG capsule Take 1 capsule by mouth 2 times daily for 10 days. Mupirocin 2 % ointment Apply to affected area TID for 5 days Family History Problem Relation Age of Onset Diabetes Mother 12/01/22 Kidney Disease Mother Hypertension Mother Lipid Disorder Mother Sudden Cardiac Mother Passed 12/02/22-OK- in sleep Heart Failure Father Heart Disease - Other Father CHF Hypertension Father Lipid Disorder Father Other - Specify Father Fainting Father Depression Father Diabetes Father Mental Illness Sister Mental Illness Sister schizophrenia; biploar Lipid Disorder Brother Hypertension Brother Myocardial Infarction Brother Diabetes Brother Diabetes Brother Myocardial Infarction Brother STEMI 2021 Lipid Disorder Brother 2021 GI Disease Maternal Grandmother Lung Cancer Maternal Grandfather Colorectal Cancer Maternal Grandfather GI Disease Maternal Grandfather Heart Disease - Other Paternal Grandmother Heart Disease - Other Paternal Grandfather Past Medical History: Diagnosis Date Anxiety 05/2021 Arrhythmia PAC's not afib per patient Cardiac angina Depression Diabetes mellitus Type 2 Essential hypertension, benign Fatty liver GERD (gastroesophageal reflux disease) History of chicken pox History of kidney stones Hyperlipidemia Hypothyroidism Obesity Osteoarthritis Osteoarthritis Other sleep apnea Renal disease kidney stones Sinusitis Past Surgical History: Procedure Laterality Date CYSTOURETHROSCOPY W/ URETEROSCOPY/PYELOSCOPY W/ LITHOTRIPSY INCL STENT INSERTION Bilateral 03/17/2024 Laterality: Bilateral; Surgeon: Robson Parnell MD; Location: [facility] UROGRAPHY/PYELOGRAPHY RETROGRADE Bilateral 03/17/2024 Laterality: Bilateral; Surgeon: Robson Parnell MD; Location: [facility] CYSTOURETHROSCOPY W/ URETEROSCOPY/PYELOSCOPY DIAGNOSTIC Right 06/13/2021 Laterality: Right; Surgeon: Juan Dominique MD; Location: [facility] OR TONSILLECTOMY ADENOIDECTOMY 2012 TOE SURGERY age 13 Social History Socioeconomic History Marital status: Single Spouse name: Not on file Number of children: Not on file Years of education: Not on file Highest education level: Not on file Occupational History Employer: [employer] Tobacco Use Smoking status: Never Smokeless tobacco: Never Vaping Use Vaping status: Never Used Substance and Sexual Activity Alcohol use: Not Currently Alcohol/week: 2.0 standard drinks of alcohol Types: 2 Standard drinks or equivalent per week Comment: Special Social Occasions only Drug use: Not Currently Sexual activity: Yes Partners: Male control/protection: Condom, Pill Other Topics Concern Service Not Asked Blood Transfusions Not Asked Caffeine Concern Not Asked Occupational Exposure No Hobby Hazards No Sleep Concern Not Asked Stress Concern Not Asked Weight Concern Not Asked Special Diet Not Asked Back Care Not Asked Exercise Not Asked Bike Helmet Not Asked Seat Belt Not Asked Domestic Violence No Social History Narrative Not on file Social Determinants of Health Financial Resource Strain: Not on file Food Insecurity: Not on file Transportation Needs: Not on file Physical Activity: Not on file Stress: Not on file Social Connections: Not on file Intimate Partner Violence: Not on file Housing Stability: Not on file ROS Review of Systems Constitutional: Negative. HENT: Negative. Eyes: Negative. Respiratory: Negative. Cardiovascular: Negative. Gastrointestinal: Negative. Musculoskeletal: Negative. Skin: Positive for wound. Neurological: Negative. Psychiatric/Behavioral: Negative. PHYSICAL EXAM Visit Vitals BP 139/75 (BP Location: Left arm, BP Position: Sitting) Pulse 85 Temp 98.3 F (36.8 C) (Temporal) Resp 17 Ht 1.626 m (5' 4) Wt 118.4 kg (261 lb) LMP 08/30/2024 (Exact Date) SpO2 97% BMI 44.80 kg/m Physical Exam Vitals and nursing note reviewed. Constitutional: General: She is not in acute distress. Appearance: Normal appearance. She is not ill-appearing or toxic-appearing. HENT: Head: Normocephalic. Right Ear: External ear normal. Left Ear: External ear normal. Nose: Nose normal. Eyes: Pupils: Pupils are equal, round, and reactive to light. Cardiovascular: Rate and Rhythm: Normal rate. Pulmonary: Effort: Pulmonary effort is normal. Abdominal: General: There is no distension. Musculoskeletal: General: Normal range of motion. Hands: Cervical back: Normal range of motion. Comments: No obvious abscess Skin: General: Skin is warm and dry. Capillary Refill: Capillary refill takes less than 2 seconds. Neurological: General: No focal deficit present. Mental Status: She is alert and oriented to person, place, and time. Psychiatric: Thought Content: Thought content normal. RESULTS No results found for this or any previous visit (from the past 1 hour(s)). ASSESSMENT/PLAN 1. Paronychia of finger, unspecified laterality Orders Placed This Encounter cephALEXin 500 MG capsule Mupirocin 2 % ointment Patient presents to the clinic with a paronychia of the finger. Patient be started on mupirocin ointment as well as Keflex. Follow up with primary care. If worsening return to clinic. Wash with warm soap and water. Patient agrees and she was discharged home stable. If symptoms worsen patient was advised to follow up in our office, primary care provider or the Emergency Dept. Benefits, Risks, Contraindications, and Complications of recommended treatments were explained. The patient understands and agrees to proceed with plan. VIKRAM Rowan 09/02/2024 [facility] History of Present illness Narrative* Edwina Travis - 09/02/2024 2:00 PM EDT Nurse Note: Review of Systems Constitutional: Negative for fatigue and unexpected weight change. Eyes: Negative for visual disturbance. Respiratory: Negative for shortness of breath. Gastrointestinal: Negative for constipation, diarrhea, nausea and vomiting. Endocrine: Positive for polydipsia and polyuria. Neurological: Negative for numbness. Psychiatric/Behavioral: Negative for sleep disturbance. Nursing Assessment: Physical Exam * Jesus Alvarez CNP - 09/02/2024 2:00 PM EDT Subjective History of Present Illness Diabetes Thyroid Problem Type 2 Diabetes:Today is patients third visit to the office for sue/dexcom download and lab review. She states she was diagnosed with type 2 diabetes about 3 years ago. Family history of diabetes include her mom, dad, and brother. She is currently taking Metformin XR 500 mg 2 tablets twice daily, Lantus 30 units daily, Ozempic 0.5 mg weekly, and Jardiance 10 mg daily. She was previously on Mounjaro but this was stopped when she was trying to get . This is on hold for now. Labs demonstrated hemoglobin A1c =7.5% down from 9.0% up from 8.7%, blood pvsbsef=651, GFR=85, LDL = 51, triglycerides = 193. She is currenlty using the Dexcom G7 personal CGM now that she has not been able to get the sue 3 anymore due to the shortage. She eats three meals and one snack daily. She drinks mostly water. She tries to eat balanced meals with more protein and less carbs. She has metwith our certified breastfeeding educator, but not the security systems manager yet. Her last visit with Ophthalmology was November 2023 and she denies complications from diabetes. She sees Dr. Presley Romero at [facility]. She states her right great toe is numb on the medial side from previous ingrown toenail removal. She does have some chronic pain to the right foot due to an extra bone (?), she saw Dr. García on 05/24/2024. She denies pancreatitis. She has kidney stones but no other kidney issues. She has personal history of PVC's and just found out she had a mild heart attack in her sleep in April and sees Dr. Khalil with Cardiology. She does have a great amount of stress in her life right now. She states her mother a year ago and she has been caring for her father since. She is also taking care of her brother. 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 Blood pressure above target today in office. No LUZMA or ARB therapy. She is currently taking the rosuvastatin daily again. Hypothyroidism: She is also here for lab follow up on hypothyroidism/ag's. States she was 12years old when she was diagnosed with thyroid issues and possible PCOS. States she was 14 years oldwhen she received the diagnosis of Ag's thyroiditis. Family history of thyroid disease includes both of her parents who had hypothyroidism. She states that she does not take biotin but she wastaking vitamins as she was trying to get but this is on hold for now. She states she has been off her vitamin for about 2 weeks. Previous thyroid labs were drawn with roselia al vitamin interference. Recent labs on 08/26/2024 demonstrate TSH=3.13, with Free T4=1.20. Previous labs without vitamin demonstrate TSH = 1.93 down from 3.59, Free T4=1.07, and Free T3=2.86.All thyroid antibodies are negative. Patient currently takes levothyroxine 112 mcg daily. She does take this first thing in the morning but with her other medications which did include a multivitamin but she has since this. She does wait about 1-2 hours to eat food. Last menstrual period was in . She is complaining of some fatigue but due to her hyperglycemia she is unsure if these are related to her thyroid or not. She isnot complaining of dysphagia, dyspnea, difficulty sleeping, or heart palpitations. She does have a history of PVCs. She does see Dr. Khalil with Cardiology. She has never had a thyroid ultrasound. Objective Review of Systems Nurse Note: Review of Systems Constitutional: Negative for fatigue and unexpected weight change. Eyes: Negative for visual disturbance. Respiratory: Negative for shortness of breath. Gastrointestinal: Negative for constipation, diarrhea, nausea and vomiting. Endocrine: Positive for polydipsia and polyuria. Neurological: Negative for numbness. Psychiatric/Behavioral: Negative for sleep disturbance. Nursing Assessment: Physical Exam Vitals: Blood pressure 142/74, pulse 86, height 1.626 m (5' 4.02), weight 119.3 kg (263 lb), last menstrual period 08/30/2024, SpO2 97%, not currently . Physical Exam Constitutional: General: She is not in acute distress. Appearance: Normal appearance. HENT: Head: Normocephalic. Eyes: Conjunctiva/sclera: Conjunctivae normal. Neck: Vascular: No carotid bruit. Comments: Thyroid palpates soft, no nodules felt. Negative Marcello test. No acanthosis to neck. Cardiovascular: Rate and Rhythm: Normal rate and regular rhythm. Pulses: Normal pulses. Heart sounds: Normal heart sounds. Pulmonary: Effort: Pulmonary effort is normal. No respiratory distress. Breath sounds: Normal breath sounds. Musculoskeletal: Cervical back: Normal range of motion and neck supple. No tenderness. Skin: General: Skin is warm and dry. Neurological: General: No focal deficit present. Mental Status: She is alert and oriented to person, place, and time. Psychiatric: Mood and Affect: Mood normal. Behavior: Behavior normal. Neurological Exam Mental Status Alert. Oriented to person, place, and time. Foot exam: Needs done at follow up. Assessment and Plan Type 2 diabetes: Discussed CGM download and labs with patient today. CGM data is demonstrating timein target range of 58% with a GMI = 7.5%. 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 Based on CGM data and discussion with patient we are going to continue with the Jardiance, metformin, and Lantus 20 units daily. We will increase the Ozempic to 2 mg weekly. she has met with our certified breastfeeding educator, but not the dietitian juana. I would like to see her back in 3 months with CGM download and labs. Hypothyroidism: Discussed discussed thyroid labs. Previous negative thyroid antibodies. TSH is at target. Patient has no complaints. I would like for her to continue the Levothyroxine 112 mcg daily. Would like to see her back in 3 months with labs for this as well. All questions answered and she understands and agrees to proceed. We will continue to follow for diabetes and hypothyroidism. documented in this [facility]10-04-2024 Procedure note* Jesus Alvarez CNP - 09/02/2024 2:00 PM EDTAssociated Order(s): RI CONTINUOUS GLUCOSE MONITORING ANALYSIS I&R CGM download demonstrates time in target range 58%, high 37%, very high 5%, low/very low 0%. GMI = 7.5%. CGM data is demonstrating some postprandial hyperglycemia. Overnight blood sugars do appear reasonable. Based on CGM download discussion with patient we are going to continue the Lantus, metformin, and Jardiance. We are going to increase Ozempic to 2 mg. We will re-evaluate in 3 months. [facility]10-04-2024 Procedure note* Jesus Alvarez CNP - 09/02/2024 2:00 PM EDTAssociated Order(s): RI CONTINUOUS GLUCOSE MONITORING ANALYSIS I&R CGM download demonstrates time in target range 58%, high 37%, very high 5%, low/very low 0%. GMI = 7.5%. CGM data is demonstrating some postprandial hyperglycemia. Overnight blood sugars do appear reasonable. Based on CGM download discussion with patient we are going to continue the Lantus, metformin, and Jardiance. We are going to increase Ozempic to 2 mg. We will re-evaluate in 3 months. [facility] History of Present illness Narrative* Antwon Martin CNP - 08/22/2024 3:15 PM EDT 08/22/24 Oswaldo Morel 1985 No chief complaint on file. HISTORY of Present Illness: Oswaldo Morel is a 38 y.o. year old female that presents today with No chief complaint on file. . Oswaldo Morel has had injections in the past. Last injection to right knee and right shoulder was over 3 months ago and they tolerated well. They have been treated w/ oral medications & injections. Patient denies new injury to the knees or shoulder. The following portions of the patient's history were reviewed and updated as appropriate: allergies, current medications, past surgical history and problem list Assessment No documentation. Referred By: No ref. provider found PAST MEDICAL HISTORY The patient's Medications, Allergies, Past Surgical History, Medical History, Family History and Social History were reviewed and can be found in their online medical record, and I have reviewed thisinformation with Oswaldo Morel at the time of their visit. They are significant for Past Medical History: Diagnosis Date Atrial fibrillation (HCC) Disease of thyroid gland Hypertension Osteoarthritis osteoarthritis PHYSICAL EXAM Ortho Exam Additional Notes: IMAGING Notes: none new today. Reviewed from last visit. IMPRESSION And PLAN: Cortisone injection today. Will follow up in 3 months if effective. Call if no improvement in 10 days. 1. Primary osteoarthritis of right shoulder 2. Primary osteoarthritis of right knee Antwon Martin CNP * Antwon Martin CNP - 08/22/2024 3:15 PM EDTAssociated Order(s): LG Jt Injection/Arthrocentesis: R subacromial bursa Post-Procedure Diagnose(s): Primary osteoarthritis of right shoulder LG Jt Injection/Arthrocentesis: R subacromial bursa Performed by: Antwon Martin CNP Authorized by: Antwon Martin CNP CPT 14331 - Large Joint Arthrocentesis: Consent given by: Patient Time out: Immediately prior to the procedure a time out was called Physician or proceduralist has discussed critical or nonroutine steps, procedure duration and anticipated blood loss: Yes Supporting Documentation: Indications: Pain Procedure Details: Location: Shoulder Site: R subacromial bursa Prep: patient was prepped and draped in usual sterile fashion Needle size: 22 G Approach: Posterior Medications: 1 mL dexAMETHasone 4 mg/mL, 1 mL triamcinolone acetonide 40 mg/mL Anesthetic used: Bupivacaine 0.25% Anesthetic amount (mL): 3 Patient tolerance: Patient tolerated the procedure well with no immediate complications documented in this [id number] NoteLG Jt Injection/Arthrocentesis: R knee Performed by: Antwon Martin CNP Authorized by: Antwon Martin CNP CPT 27829 - Large Joint Arthrocentesis: Consent given by: Patient Time out: Immediately prior to the procedure a time out was called Physician or proceduralist has discussed critical or nonroutine steps, procedure duration and anticipated blood loss: Yes Supporting Documentation: Indications: Pain Procedure Details: Location: Knee Site: R knee Prep: patient was prepped and draped in usual sterile fashion Needle size: 22 G Approach: Anterolateral Medications: 1 mL dexAMETHasone 4 mg/mL, 1 mL triamcinolone acetonide 40 mg/mL Anesthetic used: Lidocaine 1% and Bupivacaine 0.25% Anesthetic amount (mL): 3 Patient tolerance: Patient tolerated the procedure well with no immediate complicationsUniversity [facility]als [facility]09[facility] NotePROGRESS :This report has been cancelled.[facility]09-23-2024 NoteLG Jt Injection/Arthrocentesis: R subacromial bursa Performed by: Antwon Martin CNP Authorized by: Antwon Martin CNP CPT 30692 - Large Joint Arthrocentesis: Consent given by: Patient Time out: Immediately prior to the procedure a time out was called Physician or proceduralist has discussed critical or nonroutine steps, procedure duration and anticipated blood loss: Yes Supporting Documentation: Indications: Pain Procedure Details: Location: Shoulder Site: R subacromial bursa Prep: patient was prepped and draped in usual sterile fashion Needle size: 22 G Approach: Posterior Medications: 1 mL dexAMETHasone 4 mg/mL, 1 mL triamcinolone acetonide 40 mg/mL Anesthetic used: Bupivacaine 0.25% Anesthetic amount (mL): 3 Patient tolerance: Patient tolerated the procedure well with no immediate complications AUTHENTICATED BY ANTWON MARTIN, ON 08/22/2024 15:26:30[facility] 08-22-2024 Note08/22/24 Oswaldo Morel 1985 No chief complaint on file. HISTORY of Present Illness: Oswaldo Morel is a 38 y.o. year old female that presents today with No chief complaint on file. . Oswaldo Morel has had injections in the past. Last injection to right knee and right shoulder was over 3 months ago and they tolerated well. They have been treated w/ oral medications & injections. Patient denies new injury to the knees or shoulder. The following portions of the patient's history were reviewed and updated as appropriate: allergies, current medications, past surgical history and problem list Assessment No documentation. Referred By: No ref. provider found PAST MEDICAL HISTORY The patient's Medications, Allergies, Past Surgical History, Medical History, Family History and Social History were reviewed and can be found in their online medical record, and I have reviewed this information with Oswaldo Morel at the time of their visit. They are significant for Past Medical History: Diagnosis Date Atrial fibrillation (HCC) Disease of thyroid gland Hypertension Osteoarthritis osteoarthritis PHYSICAL EXAM Ortho Exam Additional Notes: IMAGING Notes: none new today. Reviewed from last visit. IMPRESSION And PLAN: Cortisone injection today. Will follow up in 3 months if effective. Call if no improvement in 10 days. 1. Primary osteoarthritis of right shoulder 2. Primary osteoarthritis of right knee Antwon Martin CNP AUTHENTICATED BY ANTWON MARTIN, ON 08/22/2024 15:26:30[facility] History of Present illness Narrative* Robson Parnell MD - 08/08/2024 2:30 PM EDT HISTORY OF PRESENT ILLNESS 38 y.o. female with a history of nephrolithiasis returns to review results of stone labs and litholink. DATA REVIEWED: LABS 05/17/2024 PTH intact: 17.1 Uric Acid: 5.4 Phosphate: 4.3 Litholink 24 hour urine test Results History Allergies Allergen Reactions Bee Venom Swelling Pet Dander [*Animal Dander] Seasonal has body mass index of 40.0-49.9; Kidney stone; Cervical dystonia; Cervical radiculopathy; Chronic left SI joint pain; Essential hypertension; Hypothyroidism (acquired); Pain in right knee; Pain of right shoulder region; Primary osteoarthritis of right shoulder; Type 2 diabetes mellitus with hypergl ycemia (A1C > 6.49); History of nephrolithiasis; and Multiple punctate calcifications of kidney on their problem list. Current Outpatient Medications Medication Sig Dispense Refill APPLE CIDER VINEGAR PO Take by mouth daily. Aspirin [address] tablet Take 1 tablet by mouth daily. Atenolol 50 MG tablet Take 1 tablet by mouth daily. 90 tablet 1 Cetirizine 10 MG tablet Take 1 tablet by mouth daily. 30 tablet 2 Continuous Glucose Automatic Machines Supervisor (FreeStyle Sue 3 [place]) Device 1 Each by Unknown route As directed. 1 Each 0 Continuous Glucose Sensor (FreeStyle Sue 3 Sensor) Misc 1 Each by Unknown route every 14 days. 2 Each 11 Empagliflozin (Jardiance) 10 MG tablet Take 1 tablet by mouth every morning before breakfast. 30 tablet 3 escitalopram 5 MG tablet Take 1 tablet by mouth daily. 90 tablet 1 fluticasone 50 MCG/ACT Suspension nasal spray 2 sprays by Nasal route daily. 16 g 1 Icosapent Ethyl (Vascepa) 1 g capsule Take 2 capsules by mouth 2 times daily. 360 capsule 1 Insulin lispro, 1 Unit Dial, (HumaLOG KwikPen) 100 UNIT/ML Solution Pen-injector To use via slidingscale 3 times a day before meals as directed. 15 mL 3 Lantus SoloStar 100 UNIT/ML Solution Pen-injector injection Inject 20 Units under the skin Every evening as needed. 15 mL 5 levothyroxine 112 MCG tablet Take 1 tablet by mouth daily. 90 tablet 1 metFORMIN-XR 500 MG Tab SR 24 HR Take 2 tablets by mouth 2 times daily. 2 tablets bid 360 tablet 1 MILK THISTLE PO Take by mouth daily. Misc. Devices Misc by Unknown route. APAP [id number] DME: [facility] setup 09/04/21, on airview multivitamin tablet Take 1 tablet by mouth daily. nitroGLYCERIN 0.[address] 1 tablet under tongue every 5 minutes as needed for Chest pain. max = 3 doses. If CP persists after 3rd dose, call 911 25 tablet 1 Pantoprazole (Protonix) [address] tablet DR Take 1 tablet by mouth daily. 90 tablet 1 Rosuvastatin 10 MG tablet Take 1 tablet by mouth daily. Rosuvastatin 10 MG tablet Take 1 tablet by mouth daily. 90 tablet 1 Semaglutide, 1 MG/DOSE, (Ozempic, 1 MG/DOSE,) 4 MG/3ML Solution Pen-injector Inject 1 mg under the skin once a week. 3 mL 5 Sucralfate 1 g tablet Take 1 tablet by mouth every 6 hours. (Patient taking differently: Take 1 tablet by mouth as needed.) 30 tablet 1 TURMERIC PO Take by mouth daily. UltiGuard SafePack Pen Needle 32G X 4 MM Misc Inject 1 Needle under the skin 4 times daily. 200 Each 3 No current facility-administered medications for this visit. family history includes Colorectal Cancer in her maternal grandfather; Depression in her father; Diabetes in her brother, brother, father, and mother; Fainting in her father; GI Disease in her maternal grandfather and maternal grandmother; Heart Disease - Other in her father, paternal grandfather, and paternal grandmother; Heart Failure in her father; Hypertension in her brother, father, and mother; Kidney Disease in her mother; Lipid Disorder in her brother, brother, father, and mother; Lung Cancer in her maternal grandfather; Mental Illness in her sister and sister; Myocardial Infarction inher brother and brother; Other - Specify in her father; Sudden Cardiac in her mother. Past Medical History: Diagnosis Date Anxiety 05/2021 Arrhythmia PAC's not afib per patient Cardiac angina Depression Diabetes mellitus Type 2 Essential hypertension, benign Fatty liver GERD (gastroesophageal reflux disease) History of chicken pox History of kidney stones Hyperlipidemia Hypothyroidism Obesity Osteoarthritis Osteoarthritis Other sleep apnea Renal disease kidney stones Sinusitis Past Surgical History: Procedure Laterality Date CYSTOURETHROSCOPY W/ URETEROSCOPY/PYELOSCOPY W/ LITHOTRIPSY INCL STENT INSERTION Bilateral 03/17/2024 Laterality: Bilateral; Surgeon: Robson Parnell MD; Location: [facility] UROGRAPHY/PYELOGRAPHY RETROGRADE Bilateral 03/17/2024 Laterality: Bilateral; Surgeon: Robson Parnell MD; Location: [facility] CYSTOURETHROSCOPY W/ URETEROSCOPY/PYELOSCOPY DIAGNOSTIC Right 06/13/2021 Laterality: Right; Surgeon: Juan Dominique MD; Location: [facility] OR TONSILLECTOMY ADENOIDECTOMY 2012 TOE SURGERY age 13 Social History Tobacco Use Smoking Status Never Smokeless Tobacco Never Social History Substance and Sexual Activity Alcohol Use Not Currently Alcohol/week: 2.0 standard drinks of alcohol Types: 2 Standard drinks or equivalent per week Comment: Special Social Occasions only Physical Examination: Vital Signs: Smoking Status Never Constitutional: Oriented to person, place, and time. Appears well developed and well nourished. Eyes: conjunctiva/corneas clear, normal vision Ears/Nose/Mouth Eyes -EOMI. Ears - External normal ear. Hearing normal. Mouth - Lips normal color. Head/Neck: Face symmetrical, trachea midline, Head - Normocephalic. symmetrical. Normal ROM, neck supple. Thyroid normal. Pulmonary/chest: Normal respiratory effort, non-labored breathing. Abdominal/GI: Soft, non-tender, no organomegaly. Bowel sounds normal. Cardiovascular Normal rate and regular rhythm. No Murmurs or Rubs, Radial pulses normal. Circulation Normal. Neurologic: Alert and oriented x3. No focal neurological deficits noted. Extremities: No clubbing, cyanosis, or edema noted, no calf tenderness bilaterally. Skin: Warm and dry.Normal turgor, well-hydrated, no rashes noted. Psych: Normal mood and affect. Behavior is normal. ASSESSMENT AND PLAN: ICD-10-CM 1. History of nephrolithiasis Z87.442 History of Nephrolithiasis: All metabolic lab work for stone panel resulted within normal limits. Litholink showed hypercalcemia, hyperoxaluria, low urine PH. I advised adding potassium citrate supplementation may help prevent the formation of stones. Patient is agreeable to trial supplements. Recommended increasing fluid intake (aiming for >2 L of urine output daily), addition of fresh lemon to the water, and decreasing sodium and protein intake to prevent further stone formation, educational materials also provided. We discussed limiting dietary oxalate as well. PLAN: 1. Potassium citrate meq 10 BID sent to pharmacy 2. CMP lab ordered today Follow up in 2-3 months to review UA PH and CMP lab with Omid Coffey CNP Patient was advised to call with any questions or concerns. If symptoms worsen patient was advised to follow up in our office or the Emergency Dept. Benefits, Risks, Contraindications, and Complications of recommended treatments were explained the patient understands and agrees to proceed with plan. The documentation within this encounter was likely aided with Tasqe, an electronic senior water/wastewater engineer device. Please excuse any grammatical errors or omissions that may not have been recognized at the time of this encounter. * Lidia Watson - 08/08/2024 2:30 PM EDT Nurse Note: Review of Systems Constitutional: Negative. HENT: Negative. Eyes: Negative. Respiratory: Negative. Cardiovascular: Negative. Gastrointestinal: Negative. Endocrine: Negative. Genitourinary: Positive for flank pain (Slight pain lower back-possibly not related). Skin: Negative. Allergic/Immunologic: Negative. Neurological: Negative. Hematological: Negative. Psychiatric/Behavioral: Negative. Nursing Assessment: Physical Exam [id number] [facility] History of Present illness Narrative* Noemi Robin APRN-MARBELLA - 07/21/2024 5:25 PM EDT HPI Oswaldo Morel female 1985 [facility] to [facility] with Chief Complaint Patient presents with Sore Throat Patient states sinus congestion went to chest. Patient states she also has a sore throat. Patient states symptoms started last night. Patient took at home covid test and was negative. Patient presents with sore throat, sinus congestion, cough that started quickly yesterday. Negativehome COVID19 test. Taking OTC Meds. 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 History Allergies Allergen Reactions Bee Venom Swelling Pet Dander [*Animal Dander] Seasonal Current Outpatient Medications Medication Sig APPLE CIDER VINEGAR PO Take by mouth daily. Aspirin [address] tablet Take 1 tablet by mouth daily. Atenolol 50 MG tablet Take 1 tablet by mouth daily. Cetirizine 10 MG tablet Take 1 tablet by mouth daily. Continuous Glucose Automatic Machines Supervisor (FreeStyle Sue 3 [place]ones) Device 1 Each by Unknown route As directed. Continuous Glucose Sensor (FreeStyle Sue 3 Sensor) Misc 1 Each by Unknown route every 14 days. Empagliflozin (Jardiance) 10 MG tablet Take 1 tablet by mouth every morning before breakfast. escitalopram 5 MG tablet Take 1 tablet by mouth daily. fluticasone 50 MCG/ACT Suspension nasal spray 2 sprays by Nasal route daily. Icosapent Ethyl (Vascepa) 1 g capsule Take 2 capsules by mouth 2 times daily. Insulin lispro, 1 Unit Dial, (HumaLOG KwikPen) 100 UNIT/ML Solution Pen-injector To use via slidingscale 3 times a day before meals as directed. Lantus SoloStar 100 UNIT/ML Solution Pen-injector injection Inject 20 Units under the skin Every evening as needed. levothyroxine 112 MCG tablet Take 1 tablet by mouth daily. metFORMIN-XR 500 MG Tab SR 24 HR Take 2 tablets by mouth 2 times daily. 2 tablets bid MILK THISTLE PO Take by mouth daily. Misc. Devices Misc by Unknown route. APAP [id number] DME: [facility] setup 09/04/21, on airview multivitamin tablet Take 1 tablet by mouth daily. nitroGLYCERIN 0.[address] 1 tablet under tongue every 5 minutes as needed for Chest pain. max = 3 doses. If CP persists after 3rd dose, call 911 Pantoprazole (Protonix) [address] tablet DR Take 1 tablet by mouth daily. Rosuvastatin 10 MG tablet Take 1 tablet by mouth daily. Rosuvastatin 10 MG tablet Take 1 tablet by mouth daily. Semaglutide, 1 MG/DOSE, (Ozempic, 1 MG/DOSE,) 4 MG/3ML Solution Pen-injector Inject 1 mg under the skin once a week. Sucralfate 1 g tablet Take 1 tablet by mouth every 6 hours. (Patient taking differently: Take 1 tablet by mouth as needed.) TURMERIC PO Take by mouth daily. UltiGuard SafePack Pen Needle 32G X 4 MM Misc Inject 1 Needle under the skin 4 times daily. Family History Problem Relation Age of Onset Diabetes Mother 12/01/22 Kidney Disease Mother Hypertension Mother Lipid Disorder Mother Sudden Cardiac Mother Passed 12/02/22-OK- in sleep Heart Failure Father Heart Disease - Other Father CHF Hypertension Father Lipid Disorder Father Other - Specify Father Fainting Father Depression Father Diabetes Father Mental Illness Sister Mental Illness Sister schizophrenia; biploar Lipid Disorder Brother Hypertension Brother Myocardial Infarction Brother Diabetes Brother Diabetes Brother Myocardial Infarction Brother STEMI 2021 Lipid Disorder Brother 2021 GI Disease Maternal Grandmother Lung Cancer Maternal Grandfather Colorectal Cancer Maternal Grandfather GI Disease Maternal Grandfather Heart Disease - Other Paternal Grandmother Heart Disease - Other Paternal Grandfather Past Medical History: Diagnosis Date Anxiety 05/2021 Arrhythmia PAC's not afib per patient Cardiac angina Depression Diabetes mellitus Type 2 Essential hypertension, benign Fatty liver GERD (gastroesophageal reflux disease) History of chicken pox History of kidney stones Hyperlipidemia Hypothyroidism Obesity Osteoarthritis Osteoarthritis Other sleep apnea Renal disease kidney stones Sinusitis Past Surgical History: Procedure Laterality Date CYSTOURETHROSCOPY W/ URETEROSCOPY/PYELOSCOPY W/ LITHOTRIPSY INCL STENT INSERTION Bilateral 03/17/2024 Laterality: Bilateral; Surgeon: Robson Parnell MD; Location: [facility] UROGRAPHY/PYELOGRAPHY RETROGRADE Bilateral 03/17/2024 Laterality: Bilateral; Surgeon: Robson Parnell MD; Location: [facility] CYSTOURETHROSCOPY W/ URETEROSCOPY/PYELOSCOPY DIAGNOSTIC Right 06/13/2021 Laterality: Right; Surgeon: Juan Dominique MD; Location: [facility] OR TONSILLECTOMY ADENOIDECTOMY 2012 TOE SURGERY age 13 Social History Socioeconomic History Marital status: Single Spouse name: Not on file Number of children: Not on file Years of education: Not on file Highest education level: Not on file Occupational History Employer: [employer] Tobacco Use Smoking status: Never Smokeless tobacco: Never Vaping Use Vaping status: Never Used Substance and Sexual Activity Alcohol use: Not Currently Alcohol/week: 2.0 standard drinks of alcohol Types: 2 Standard drinks or equivalent per week Comment: Special Social Occasions only Drug use: Not Currently Sexual activity: Yes Partners: Male control/protection: Condom, Pill Other Topics Concern Service Not Asked Blood Transfusions Not Asked Caffeine Concern Not Asked Occupational Exposure No Hobby Hazards No Sleep Concern Not Asked Stress Concern Not Asked Weight Concern Not Asked Special Diet Not Asked Back Care Not Asked Exercise Not Asked Bike Helmet Not Asked Seat Belt Not Asked Domestic Violence No Social History Narrative Not on file Social Determinants of Health Financial Resource Strain: Not on file Food Insecurity: Not on file Transportation Needs: Not on file Physical Activity: Not on file Stress: Not on file Social Connections: Not on file Intimate Partner Violence: Not on file Housing Stability: Not on file ROS Review of Systems 8 systems reviewed with patient, negative unless specifically mentioned in history of present illness PHYSICAL EXAM Visit Vitals BP 138/88 (BP Location: Right arm, BP Position: Sitting) Pulse 99 Temp 97.9 F (36.6 C) (Temporal) Resp 16 Ht 1.626 m (5' 4) Wt 120.2 kg (265 lb) SpO2 95% BMI 45.49 kg/m Physical Exam Vitals and nursing note reviewed. Constitutional: General: She is not in acute distress. Appearance: Normal appearance. She is well-developed. She is not ill-appearing or diaphoretic. HENT: Head: Normocephalic. Right Ear: Tympanic membrane normal. Left Ear: Tympanic membrane normal. Nose: Nose normal. Mouth/Throat: Mouth: Mucous membranes are moist. Pharynx: Oropharynx is clear. Posterior oropharyngeal erythema present. Eyes: Pupils: Pupils are equal, round, and reactive to light. Cardiovascular: Rate and Rhythm: Normal rate and regular rhythm. Heart sounds: Normal heart sounds. Pulmonary: Effort: Pulmonary effort is normal. No respiratory distress. Breath sounds: Normal breath sounds. Musculoskeletal: Cervical back: Neck supple. Lymphadenopathy: Cervical: No cervical adenopathy. Skin: General: Skin is warm and dry. Capillary Refill: Capillary refill takes less than 2 seconds. Neurological: General: No focal deficit present. Mental Status: She is alert and oriented to person, place, and time. Psychiatric: Mood and Affect: Mood normal. Behavior: Behavior normal. RESULTS Recent Results (from the past 2 hour(s)) POCT RAPID STREP A Collection Time: 07/21/24 5:45 PM Result Value Ref Range POCT RAPID STREP A neg (+/-) ASSESSMENT/PLAN 1. Viral URI 2. Sore throat Orders Placed This Encounter POCT RAPID STREP A Rapid strep is negative. Symptoms likely viral. Discussed supportive home care and OTC meds. If symptoms worsen patient was advised to follow up in our office, primary care provider or the Emergency Dept. Benefits, Risks, Contraindications, and Complications of recommended treatments were explained. The patient understands and agrees to proceed with plan. VIKRAM Carter 07/21/2024 [facility] History of Present illness Narrative* Kendra Harry, RD - 07/20/2024 3:57 PM EDT Patient Name: Oswaldo Morel Patient : 1985 Primary Care Provider: Aaron Leigh MD Referred By: Jesus Alvarez CNP Referral Diagnosis: Diabetes Type 2 Start Time: 1530 End Time: 1700 Nutrition Diagnosis: Inconsistent carbohydrate intake related to food and nutrition related knowledge deficit of diabetic meal planning as evidenced by diet history and patient report blood sugar values Nutrition Goals: I will read labels for carbohydrate amounts and double check my portion control. 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 Recent increase in blood sugar levels and pt now started on insulin and using CGM for better control. Pt currently eating three meals a day with 1-2 snacks. Breakfast and lunch often eating the same thing withmore variety at dinner. Pt estimating CHO at meals however food records show pt consuming 45- 130g. Reviewed CHO counting and portion control and encouraged pt to track foods for a week to raise awareness of CHO amounts. Pt notes spikes in blood sugars in evening into middle of night but levels out in the morning and is consistent most of the day. ? If this is from high carb load in evening which food records show largest meal is at night. Pt does not eating nonstarchy vegetables with steamable frzn veggies however food records appear low in nonstarchy vegetable intake and fruit. Pt with concerns with recurrent kidneys stone and diet education reviewed today. Reason for Visit: DM, kidney stones Support Person Present: none Language or Literacy Factors: none Height: 64 Current Weight: 265# BMI: 45 BMI Classification: Obese Class III (>40.0) Weight History: Pt reports highest wt around 290-300# with recent wt loss in the last 3 months. During this time her dad moved in with her and she has been making healthier meals and eating out less to accommodate his diet needs for low sodium. Wt Readings from Last 10 Encounters: 07/23/22 113.4 kg (250 lb) 06/23/22 113.4 kg (250 lb) 04/10/21 113.4 kg (250 lb) 05/09/20 113.4 kg (250 lb) 12/27/19 113.4 kg (250 lb) 12/20/19 113.4 kg (250 lb) 12/20/19 113.4 kg (250 lb) 12/14/19 111.1 kg (245 lb) 12/08/19 111.1 kg (245 lb) 10/19/19 108.9 kg (240 lb) Diet History/Recall: 3 meals with 1-2 snacks Food Purchase/Prep: self Breakfast:Ensure high protein, low fat Urdu yogurt, unsweetened applesauce, coffee- black Lunch: sydnee rice, steamed broccoli, tuna pouch, SF pudding Dinner:`12 in sub and 2 cookies or meatloaf - 2 slice with 1c mac and cheese, 1/2 cup peas, SF lemonade Snacks: cappuccino or grilled cheese, cashews Daily Fluids: water- drinking 90+oz/day of fluids per pt Meals Away From Home: 1 time a week- subway or hibachi PMHx: Nutrition related history: IBS-c, kidney stones Past Medical History: Diagnosis Date Atrial fibrillation (HCC) Disease of thyroid gland Hypertension Osteoarthritis osteoarthritis Current/Pertinent Medications: Ozempic Botox therapy Facipa Crestor ACV Nitroglycerin Citerizin Lantus 20 units pm Lispro SSI before meals Lexapro Synthroid Atenalol Pantoprazole Metformin XR 100mg CGM-sue 3 Jardiance Milk thisle Tumeric Sucralafate prn Apap machine Flonase Aspirin MVI Lab Values: A1C 9.0% CGM Average glucose over last 14 days 175 Lab Results Component Value Date HGBA1C 7.1 (H) 03/01/2021 HGBA1C 6.9 (H) 07/07/2020 HGBA1C 5.9 (H) 09/06/2019 Lab Results Component Value Date CHOL 240 (H) 03/01/2021 CHOL 226 (H) 07/07/2020 Lab Results Component Value Date TRIG 365 (H) 03/01/2021 TRIG 350 (H) 07/07/2020 Lab Results Component Value Date HDL 36 (L) 03/01/2021 HDL 34 (L) 07/07/2020 No results found for: LDL Nutrition Focused Findings: Dentition: none Changes in appetite: some improvement on Ozempic GI/food intolerances: gluten and lactose- pt consuming both but in limited amounts Food allergies: none Cultural or Pentecostal dietary needs: none Current Activity Level: Sedentary- having foot pain and has limited exercise recently, getting shoeinserts Food Insecurity Survey: Within the past 12 months, we worried whether our food would run out before we got money to buy more. Never True [0] Within the past 12 months, the food we bought just didn't last and we didn't have the money to get more. Never True [0] Estimated Nutritional Needs: Calorie Needs: 1800kcal/day (miff st jeor X 1.2-500) 180g/day CHO (40% caloric needs) 2000mg sodium or less/day Intervention/Education Provided: CHO needs/reading labels/portion control, sodium, wt loss, fiber, healthy snacks, eating out, kidney stone nutrition therapy Patient/Family Education: Learner: patient Readiness: action - ready to set action plan and implement Method: explanation and handout Response: needs reinforcement Education Materials Provided: meal and snack planning, NCM kidney stone nutrition, goal sheet Monitoring/Evaluation: Weight, Food Record/Recall, Meal Planning, Physical Activity, Medication Management, Goal Assessment This note has been communicated to referring healthcare provider. Kendra Harry RDN, LD Office documented in this [id number] Emergency department Note* Candis Rendon RN - 07/08/2024 8:49 PM EDT Written and verbal discharge instructions given to patient. Patient verbally understood discharge instructions. Confirmed correct pharmacy with patient. Patient left in stable condition. [facility] Emergency department Note* Candis Rendon RN - 07/08/2024 8:49 PM EDT Written and verbal discharge instructions given to patient. Patient verbally understood discharge instructions. Confirmed correct pharmacy with patient. Patient left in stable condition. [facility] History of Present illness Narrative* Blanche Singh MA - 05/24/2024 9:30 AM EDT Nurse Note: Review of Systems Constitutional: Negative for fatigue, fever and unexpected weight change. HENT: No difficulty swallowing No change in voice Respiratory: Negative for cough, shortness of breath and wheezing. Cardiovascular: Negative for chest pain, palpitations and leg swelling. Gastrointestinal: Negative for constipation, diarrhea, nausea and vomiting. Neurological: Negative for tremors, weakness and numbness. Psychiatric/Behavioral: Negative for sleep disturbance. The patient is not nervous/anxious. Nursing Assessment: Physical Exam * Brit García, DPM - 05/24/2024 9:30 AM EDT Patient: Oswaldo Morel Date: 05/24/2024 Subjective: Patient is a 38 y.o. year old female who presents today with complaint of a pain to theinside of the right foot and ankle which has been present for 1 month. The patient has experienced a similar condition in the past and denies a recent event. Treatment tried to date orthotics 10 yrs ago. Told she has an extra bone in her foot . Oswaldo describes the pain as sharp and sometimes pulling pain with swelling. The patient notes that sitting and resting does seem to help and that walking/activity increase thepain. Walking barefoot or in shoes with poor support causes increased pain Allergies Allergen Reactions Bee Venom Swelling Pet Dander [*Animal Dander] Seasonal Current Outpatient Medications: Aspirin [address] tablet, Take 1 tablet by mouth daily., Disp: , Rfl: Atenolol 50 MG tablet, Take 1 tablet by mouth daily., Disp: 90 tablet, Rfl: 1 Cetirizine 10 MG tablet, Take 1 tablet by mouth daily., Disp: 30 tablet, Rfl: 2 Continuous Glucose Automatic Machines Supervisor (FreeStyle Sue 3 Jenkinjones) Device, 1 Each by Unknown route As directed., Disp: 1 Each, Rfl: 0 Continuous Glucose Sensor (FreeStyle Sue 3 Sensor) Misc, 1 Each by Unknown route every 14 days., Disp: 2 Each, Rfl: 11 Empagliflozin (Jardiance) 10 MG tablet, Take 1 tablet by mouth every morning before breakfast., Disp: 30 tablet, Rfl: 3 escitalopram 5 MG tablet, Take 1 tablet by mouth daily., Disp: 90 tablet, Rfl: 1 fluticasone 50 MCG/ACT Suspension nasal spray, 2 sprays by Nasal route daily., Disp: 16 g, Rfl: 1 HERBAL PRODUCT, Glucosamine/Collagen/Vitamin C po daily, Disp: , Rfl: Icosapent Ethyl (Vascepa) 1 g capsule, Take 2 capsules by mouth 2 times daily., Disp: 360 capsule, Rfl: 1 Insulin lispro, 1 Unit Dial, (HumaLOG KwikPen) 100 UNIT/ML Solution Pen- injector, To use via sliding scale 3 times a day before meals as directed., Disp: 15 mL, Rfl: 0 Lantus SoloStar 100 UNIT/ML Solution Pen-injector injection, Inject 20 Units under the skin Every evening as needed., Disp: 15 mL, Rfl: 0 levothyroxine 112 MCG tablet, Take 1 tablet by mouth daily., Disp: 90 tablet, Rfl: 1 metFORMIN-XR 500 MG Tab SR 24 HR, Take 2 tablets by mouth 2 times daily. 2 tablets bid, Disp: 360 tablet, Rfl: 1 MILK THISTLE PO, Take by mouth daily., Disp: , Rfl: Misc. Devices Misc, by Unknown route. APAP [id number] DME: [facility] setup 09/04/21, on airview, Disp: , Rfl: multivitamin tablet, Take 1 tablet by mouth daily., Disp: , Rfl: Pantoprazole (Protonix) [address] tablet DR, Take 1 tablet by mouth daily., Disp: 90 tablet, Rfl: 1 Rosuvastatin 40 MG tablet, Take 1 tablet by mouth daily., Disp: , Rfl: Semaglutide,0.25 or 0.5MG/DOS, (Ozempic, 0.25 or 0.5 MG/DOSE,) 2 MG/3ML Solution Pen-injector, Start 0.25 mg subcutaneous once a week x 4 weeks, then increase up to 0.5 mg subcutaneous once a week., Disp: 3 mL, Rfl: 5 Sucralfate 1 g tablet, Take 1 tablet by mouth every 6 hours. (Patient taking differently: Take 1 tablet by mouth as needed.), Disp: 30 tablet, Rfl: 1 TURMERIC PO, Take by mouth daily., Disp: , Rfl: UltiGuard SafePack Pen Needle 32G X 4 MM Misc, Inject 1 Needle under the skin 4 times daily., Disp:200 Each, Rfl: 3 Past Medical History: Diagnosis Date Anxiety 05/2021 Arrhythmia PAC's not afib per patient Cardiac angina Depression Diabetes mellitus Type 2 Essential hypertension, benign Fatty liver GERD (gastroesophageal reflux disease) History of chicken pox History of kidney stones Hyperlipidemia Hypothyroidism Obesity Osteoarthritis Osteoarthritis Other sleep apnea Renal disease kidney stones Sinusitis Past Surgical History: Procedure Laterality Date CYSTOURETHROSCOPY W/ URETEROSCOPY/PYELOSCOPY W/ LITHOTRIPSY INCL STENT INSERTION Bilateral 03/17/2024 Laterality: Bilateral; Surgeon: Robson Parnell MD; Location: [facility] UROGRAPHY/PYELOGRAPHY RETROGRADE Bilateral 03/17/2024 Laterality: Bilateral; Surgeon: Robson Parnell MD; Location: [facility] CYSTOURETHROSCOPY W/ URETEROSCOPY/PYELOSCOPY DIAGNOSTIC Right 06/13/2021 Laterality: Right; Surgeon: Juan Dominique MD; Location: [facility] OR TONSILLECTOMY ADENOIDECTOMY 2012 TOE SURGERY age 13 Social History Occupational History Employer: [employer] Tobacco Use Smoking status: Never Smokeless tobacco: Never Vaping Use Vaping status: Never Used Substance and Sexual Activity Alcohol use: Not Currently Alcohol/week: 2.0 standard drinks of alcohol Types: 2 Standard drinks or equivalent per week Comment: Special Social Occasions only Drug use: Not Currently Sexual activity: Yes Partners: Male control/protection: Condom, Pill @ROS@ Vitals: 05/24/24 0911 BP: 132/80 Pulse: 91 Weight: 125.2 kg (276 lb) Height: 1.626 m (5' 4) Nurse Note: Review of Systems Constitutional: Negative for fatigue, fever and unexpected weight change. HENT: No difficulty swallowing No change in voice Respiratory: Negative for cough, shortness of breath and wheezing. Cardiovascular: Negative for chest pain, palpitations and leg swelling. Gastrointestinal: Negative for constipation, diarrhea, nausea and vomiting. Neurological: Negative for tremors, weakness and numbness. Psychiatric/Behavioral: Negative for sleep disturbance. The patient is not nervous/anxious. Nursing Assessment: Physical Exam Examination: The patient is appropriately dressed, articulate, awake, alert, and oriented x 3, appears their stated age and appears to be in good health. Objective: Vascular: Dorsalis pedis and posterior tibial pulses are palpable. Digital capillary fill time is brisk bilateral feet. There are no ischemic skin changes evident bilateral lower extremities. Temperature gradient is WNL. Dermatological: There is evidence of effusion at the medial aspect of the right posterior tibial tendon at the medial foot and ankle There is no erythema,open lesions,interdigital maceration or signs of bacterial infection bilaterallower extremities. No varicosities, telangiectasias, pigmented lesions or signs of venous stasis changes bilateral lower extremities. Neurological: Gross and light sensations intact bilateral lower extremities. Normal muscle mass appreciated to both the lower extremity and foot bilateral. Musculoskeletal: Pain elicited on palpation to the medial aspect of the right ankle in the area of the Posterior tibial tendon at the insertion Collapse of medial arch bilateral foot on WB. Negative pain with ankle joint dorsiflexion. Positive pain with eversion and inversion eversion. No pain in the area of the insertion of the ATFL ankle ligament(s). Negative pain upon palpation to the base of the 5th metatarsal. Posterior tibial tendon, strength graded at 5 /5. Assessment: Sandra was seen today for pain. Diagnoses and all orders for this visit: Posterior tibial tendinitis of right lower extremity - diclofenac EC [address] tablet; Take 1 tablet by mouth 2 times daily for 10 days. - XR FOOT RIGHT 3+ VIEWS; Future - AMB REFERRAL TO ORTHOTICS Posterior tibial tendon dysfunction, bilateral - diclofenac EC [address] tablet; Take 1 tablet by mouth 2 times daily for 10 days. - XR FOOT RIGHT 3+ VIEWS; Future - AMB REFERRAL TO ORTHOTICS Plan: Patient was seen and evaluated today in clinic and a history and physical exam was completed.The diagnosis and the etiology was explained in detail. The treatment plan will be as follows: Rest/ decrease activities Avoid walking barefoot in the house- recommend lace up shoe or something similar that is supportive Supportive lace-up tennis shoe A right double strap pre-fabricated Ankle-Foot Orthosis, Multi-ligamentous ankle support was dispensed and fitted at this visit. Due to the patient's diagnosis of ICD-10-CM 1. Posterior tibial tendinitis of right lower extremity M76.821 diclofenac EC [address] tablet XR FOOT RIGHT 3+ VIEWS AMB REFERRAL TO ORTHOTICS 2. Posterior tibial tendon dysfunction, bilateral M76.821 diclofenac EC [address] tablet M76.822 XR FOOT RIGHT 3+ VIEWS AMB REFERRAL TO ORTHOTICS and related symptoms this is medically necessary for the treatment. The function of this device is to restrict and limit motion and provide stabilization in the affected area. The goals and function of this device was explained in detail to the patient. The fitting well and the patient states that the device is comfortable at this time. The patient was shown how to properly apply, wear, and care for the device. The patient was able to apply properly and ambulate without distress. At this time, the device was dispensed, it was suitable for the condition and was not substandard. No guarantees were given and the precautions were reviewed. The brace will be worn for 4 weeks. Ice to the affected area on for a maximum of 20 minutes per hour, the foot should be elevated whileicing. Do not apply ice directly to skin. I discussed the possible need for formal physical therapy in the future Orthotic Evaluation Today the patient was evaluated for custom orthotics. After a history and physical exam, the patient was deemed to need a custom orthotics due to their diagnosis of: ICD-10-CM 1. Posterior tibial tendinitis of right lower extremity M76.821 diclofenac EC [address] tablet XR FOOT RIGHT 3+ VIEWS AMB REFERRAL TO ORTHOTICS 2. Posterior tibial tendon dysfunction, bilateral M76.821 diclofenac EC [address] tablet M76.822 XR FOOT RIGHT 3+ VIEWS AMB REFERRAL TO ORTHOTICS An over the counter device would not be sufficient, due to the specifity of this device to the patients chronic deformity. The orthotic device is expected to help the patient function and walk better. This was discussed with the patient in detail and a Rx was written and faxed to [facility] physical therapy- orthotic department The following medications were prescribed today and electronically sent to the patient's pharmacy: Diclofenac 75mg We have discussed what the medication is used for: frequency, length and expected response, as wellas, risk, benefits and common side effects. Xray next visit if not better I will see the patient back in 4 weeks. If the patient has any problems before then they can contact me at the office, or make an earlier appointment. documented in this [facility]06-19-2024 History of Present illness Narrative* Antwon Martin CNP - 05/18/2024 3:15 PM EDT Subjective: Oswaldo Morel is a 38 y.o. female here for Injections (Botox for Cervical Dystonia) Oswaldo has not do Botox for over a year due to plans to try to conceive. She is no longer wanting to get at this time so she would like to resume her treatment. Today she states she having equal resulting pain in right side of neck still. Her injection into her right shouder is helping. Her muscles in her right side of neck are still very painful. HPI: Cervical spine tenderness on palpation.Pain is exacerbated by stressors such as stress and fatigue. Patient has morning benefit but pain in her cervical muscles as day progresses. Notices that she has shoulder tension and often pull up without patient control. Xrays confirm several levels of cervical degeneration. Again , mornings are when she usually feels the best. 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 This exacerbates the pain and she can't hold her head up straight with pain. When Again emg is negative.PT hurts her. She has tried chiropractic and deep tissue massage and benefits are minimal and short-lived. This is evaluated as a personal injury. Pain is located anterior, lateral, neck, trapezius and levator muscle stiffness. Heat helps some but it is minimal. . Discomfort is described as aching, numbness, sharp/stabbing and tingling. Symptoms are exacerbated by repetitive movements, overhead movements and lying on the shoulder. She also complains of occipital headaches and intrascapular burning.Pain is in middle of right shoulder blade pain is stabbing especially at night when temperature drops. Indication for Injection Dystonia Substance Injected: Botox Botulinum toxin was diluted using 4cc .9NS (preservative free) per 200 units. Muscle Units / Inj Vol / Inj # of Inj Total Units Cervical paraspinals B/L 20 0.2 ml 4 80 L. Levator Scapulae 20 0.4 ml 4 80 R. Levator Scapulae 20 0.4 ml 4 80 L. Trapezius 20 0.5 ml 3 60 R. Trapezius 40 0.5 ml 2 80 Other: 0.0 ml 0 Total Amount Administered 380 Waste units: 20 Total Amount Used 380 The following portions of the patient's history were reviewed and updated as appropriate: allergies, current medications, past surgical history and problem list. Review of Systems Constitutional: Negative for chills, diaphoresis and fever. Respiratory: Negative for shortness of breath. Cardiovascular: Negative for chest pain, palpitations and leg swelling. Genitourinary: Negative for frequency and urgency. Musculoskeletal: Positive for myalgias, neck pain and neck stiffness. Skin: Negative for color change, rash and wound. Neurological: Negative for dizziness, syncope and weakness. Psychiatric/Behavioral: Negative for agitation. The patient is not nervous/anxious. Objective: There were no vitals taken for this visit. Physical Exam Constitutional: Appearance: She is well-developed. SHUBHAMT: Head: Normocephalic and atraumatic. Eyes: Pupils: Pupils are equal, round, and reactive to light. Cardiovascular: Rate and Rhythm: Normal rate and regular rhythm. Pulmonary: Effort: Pulmonary effort is normal. Breath sounds: Normal breath sounds. Abdominal: General: Bowel sounds are normal. Palpations: Abdomen is soft. Musculoskeletal: General: Tenderness present. Cervical back: Normal range of motion and neck supple. Skin: General: Skin is warm and dry. Neurological: Mental Status: She is alert and oriented to person, place, and time. Deep Tendon Reflexes: Reflexes are normal and symmetric. Assessment/Plan: She is still having cervical tightness and severe pain in trapezius. Right side is worse. Botox does help her pain. 1. Cervical dystonia 2. Cervical radiculopathy Return in about 3 months (around 08/18/2024), or if symptoms worsen or fail to improve. Antwon Martin CNP 05/18/2024 documented in this [id number] History of Present illness Narrative* Urmila Raymundo LPN - 05/17/2024 2:00 PM EDT ANXIETY/DEPRESSION- Patient her for anxiety/depression. Patient current medications listed on record. Associated sx include stable .Substance abuse - NONE . HYPERTENSION- She presents for follow-up of hypertension. Pt specifically denies headaches, palpitations, and shortness of breath. Current medication regimen is as listed in this record. Blood pressure readings: Pt states they take BP PRN. BP readings averaging 120s-130s HYPOTHYROIDISM- She presents for follow up of hypothyroidism. Current symptoms related to thyroid: denies fatigue, weight changes, heat/cold intolerance, bowel and skin changes, and cardiovascular symptoms. Lab Results Component Value Date TSH 1.930 04/17/2024 TSH 3.057 04/01/2005 T4FREE 1.07 04/17/2024 TYPE 2 DM - Pt present to the office for evaluation of type 2 diabetes. Pt is overall doing well, with glucosesfor the most part averaging 190's. Pt checks blood sugars 2-3 times a day and PRN. No wide fluctuations in glucoses. Tolerating meds well. Denies change in vision, neuropathy, urinary frequency or frequent infections. Pt states they do check their feet for sores and/or ulcers. Pt is not currently seeing podiatry. Pt last diabetic eye exam 11/2022. Lab Results Component Value Date HGBA1C 9.0 (H) 04/17/2024 BP Readings from Last 3 Encounters: 04/29/24 132/68 04/14/24 140/82 03/17/24 173/84 Wt Readings from Last 3 Encounters: 05/16/24 125.4 kg (276 lb 6.4 oz) 04/29/24 125.4 kg (276 lb 6.4 oz) 04/14/24 130.2 kg (287 lb) Pt also has [facility] to complete for her own appointments. * Carmen Mckeon PA-C - 05/17/2024 2:00 PM EDT ANXIETY/DEPRESSION- Patient her for anxiety/depression. Patient current medications listed on record. Associated sx include stable .Substance abuse - NONE . HYPERTENSION- She presents for follow-up of hypertension. Pt specifically denies headaches, palpitations, and shortness of breath. Current medication regimen is as listed in this record. Blood pressure readings: Pt states they take BP PRN. BP readings averaging 120s-130s HYPOTHYROIDISM- She presents for follow up of hypothyroidism. Current symptoms related to thyroid: denies fatigue, weight changes, heat/cold intolerance, bowel and skin changes, and cardiovascular symptoms. Lab Results Component Value Date TSH 1.930 04/17/2024 TSH 3.057 04/01/2005 T4FREE 1.07 04/17/2024 TYPE 2 DM - Pt present to the office for evaluation of type 2 diabetes. Pt is overall doing well, with glucosesfor the most part averaging 190's. Pt checks blood sugars 2-3 times a day and PRN. No wide fluctuations in glucoses. Tolerating meds well. Denies change in vision, neuropathy, urinary frequency or frequent infections. Pt states they do check their feet for sores and/or ulcers. Pt is not currently seeing podiatry. Pt last diabetic eye exam 11/2022. Lab Results Component Value Date HGBA1C 9.0 (H) 04/17/2024 BP Readings from Last 3 Encounters: 05/17/24 136/85 04/29/24 132/68 04/14/24 140/82 Wt Readings from Last 3 Encounters: 05/16/24 125.4 kg (276 lb 6.4 oz) 04/29/24 125.4 kg (276 lb 6.4 oz) 04/14/24 130.2 kg (287 lb) Pt also has [facility] to complete for her own appointments. Review of Systems Constitutional: Negative for fatigue and fever. HENT: Negative for ear pain and sinus pain. Eyes: Negative for visual disturbance. Respiratory: Negative for cough and shortness of breath. Cardiovascular: Negative for chest pain, palpitations and leg swelling. Gastrointestinal: Negative for diarrhea, nausea and vomiting. Genitourinary: Negative for dysuria and frequency. Musculoskeletal: Negative for myalgias. Skin: Negative for rash. Neurological: Negative for weakness, numbness and headaches. Psychiatric/Behavioral: Negative for confusion. Objective: Blood pressure 136/85, pulse 86, not currently . Physical Exam Vitals and nursing note reviewed. Constitutional: General: She is not in acute distress. HENT: Head: Normocephalic and atraumatic. Eyes: Extraocular Movements: Extraocular movements intact. Pupils: Pupils are equal, round, and reactive to light. Neck: Vascular: No carotid bruit. Cardiovascular: Rate and Rhythm: Normal rate and regular rhythm. Pulses: Normal pulses. Heart sounds: No murmur heard. No gallop. Pulmonary: Effort: Pulmonary effort is normal. No respiratory distress. Breath sounds: No wheezing or rhonchi. Musculoskeletal: Right lower leg: No edema. Left lower leg: No edema. Skin: General: Skin is warm and dry. Capillary Refill: Capillary refill takes less than 2 seconds. Findings: No rash. Neurological: Mental Status: She is alert and oriented to person, place, and time. Psychiatric: Mood and Affect: Mood normal. Thought Content: Thought content normal. Assessment and Plan: 1. Anxiety and depression Stable, refill sent. - escitalopram 5 MG tablet; Take 1 tablet by mouth daily. Dispense: 90 tablet; Refill: 1 2. 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 Stable, refill sent. - levothyroxine 112 MCG tablet; Take 1 tablet by mouth daily. Dispense: 90 tablet; Refill: 1 3. Paroxysmal atrial fibrillation Stable, refill sent. - Atenolol 50 MG tablet; Take 1 tablet by mouth daily. Dispense: 90 tablet; Refill: 1 4. Type 2 diabetes mellitus without complication, without long-term current use of insulin Is seeing endocrinology for DM. Has decided to put conception of a baby on hold at this time. Needsrefills, sent. - metFORMIN-XR 500 MG Tab SR 24 HR; Take 2 tablets by mouth 2 times daily. 2 tablets bid Dispense: 360 tablet; Refill: 1 - COMPREHENSIVE METABOLIC PANEL; Future - UltiGuard SafePack Pen Needle 32G X 4 MM Misc; Inject 1 Needle under the skin 4 times daily. Dispense: 200 Each; Refill: 3 5. Gastroesophageal reflux disease without esophagitis Stable, refill sent. - Pantoprazole (Protonix) [address] tablet DR; Take 1 tablet by mouth daily. Dispense: 90 tablet; Refill: 1 Carmen Mckeon PA-C 05/17/2024 documented in this [facility]06-17-2024 History of Present illness Narrative* Robson Parnell MD - 05/16/2024 2:00 PM EDT HISTORY OF PRESENT ILLNESS 38 y.o. female with a history of nephrolithiasis, returns for 6 week follow up to review renal ultrasound obtained on 05/07/2024. DATA REVIEWED: I personally reviewed the images from the patient's ANDRES and performed an independent interpretation. The imaging showed bilateral kidneys with suggestion of potential nonobstructive renal calculi. Neither kidney shows solid or cystic lesion or hydronephrosis. Unremarkable bladder and visualization of both ureteral jets. UA POC: Lab Results Component Value Date APPEARANCE clear 05/16/2024 COLOR yellow 05/16/2024 SPECIFICGRAV 1.010 05/16/2024 BLOOD large 05/16/2024 PH 7 05/16/2024 PROTEIN neg 05/16/2024 UROBILINOGEN 0.2 05/16/2024 NITRITE neg 05/16/2024 LEUKOCYTE neg 05/16/2024 History Allergies Allergen Reactions Bee Venom Swelling Pet Dander [*Animal Dander] Seasonal has body mass index of 40.0-49.9; Kidney stone; Cervical dystonia; Cervical radiculopathy; Chronic left SI joint pain; Essential hypertension; Hypothyroidism (acquired); Pain in right knee; Pain of right shoulder region; Primary osteoarthritis of right shoulder; and Type 2 diabetes mellitus with hyp erglycemia (A1C > 6.49) on their problem list. Current Outpatient Medications Medication Sig Dispense Refill Aspirin [address] tablet Take 1 tablet by mouth daily. Atenolol 50 MG tablet Take 1 tablet by mouth daily. (Patient taking differently: Take 1 tablet by mouth daily. pm) 90 tablet 1 Cetirizine 10 MG tablet Take 1 tablet by mouth daily. 30 tablet 2 Continuous Glucose Automatic Machines Supervisor (FreeStyle Sue 3 Jenkinjones) Device 1 Each by Unknown route As directed. 1 Each 0 Continuous Glucose Sensor (FreeStyle Sue 3 Sensor) Misc 1 Each by Unknown route every 14 days. 2 Each 11 Empagliflozin (Jardiance) 10 MG tablet Take 1 tablet by mouth every morning before breakfast. 30 tablet 3 escitalopram 5 MG tablet Take 1 tablet by mouth daily. 90 tablet 1 fluticasone 50 MCG/ACT Suspension nasal spray 2 sprays by Nasal route daily. 16 g 1 HERBAL PRODUCT Glucosamine/Collagen/Vitamin C po daily Icosapent Ethyl (Vascepa) 1 g capsule Take 2 capsules by mouth 2 times daily. 360 capsule 1 Lantus SoloStar 100 UNIT/ML Solution Pen-injector injection Inject 20 Units under the skin Every evening as needed. 15 mL 0 levothyroxine 112 MCG tablet Take 1 tablet by mouth daily. (Patient taking differently: Take 1 tablet by mouth daily. am) 90 tablet 1 metFORMIN-XR 500 MG Tab SR 24 HR Take 2 tablets by mouth 2 times daily. 2 tablets bid 360 tablet 1 MILK THISTLE PO Take by mouth daily. Misc. Devices Misc by Unknown route. APAP [id number] DME: MSC setup 09/04/21, on airview multivitamin tablet Take 1 tablet by mouth daily. Pantoprazole (Protonix) [address] tablet DR Take 1 tablet by mouth daily. 90 tablet 1 Rosuvastatin 40 MG tablet Take 1 tablet by mouth daily. Semaglutide,0.25 or 0.5MG/DOS, (Ozempic, 0.25 or 0.5 MG/DOSE,) 2 MG/3ML Solution Pen-injector Start0.25 mg subcutaneous once a week x 4 weeks, then increase up to 0.5 mg subcutaneous once a week. 3 mL 5 Sucralfate 1 g tablet Take 1 tablet by mouth every 6 hours. (Patient taking differently: Take 1 tablet by mouth as needed.) 30 tablet 1 TURMERIC PO Take by mouth daily. UltiGuard SafePack Pen Needle 32G X 4 MM Misc USE DIRECTED ONCE DAILY WITH INSULIN PEN No current facility-administered medications for this visit. family history includes Colorectal Cancer in her maternal grandfather; Depression in her father; Diabetes in her brother, brother, father, and mother; Fainting in her father; GI Disease in her maternal grandfather and maternal grandmother; Heart Disease - Other in her father, paternal grandfather, and paternal grandmother; Heart Failure in her father; Hypertension in her brother, father, and mother; Kidney Disease in her mother; Lipid Disorder in her brother, brother, father, and mother; Lung Cancer in her maternal grandfather; Mental Illness in her sister and sister; Myocardial Infarction inher brother and brother; Other - Specify in her father; Sudden Cardiac in her mother. Past Medical History: Diagnosis Date Anxiety 05/2021 Arrhythmia PAC's not afib per patient Cardiac angina Depression Diabetes mellitus Type 2 Essential hypertension, benign Fatty liver GERD (gastroesophageal reflux disease) History of chicken pox History of kidney stones Hyperlipidemia Hypothyroidism Obesity Osteoarthritis Osteoarthritis Other sleep apnea Renal disease kidney stones Sinusitis Past Surgical History: Procedure Laterality Date CYSTOURETHROSCOPY W/ URETEROSCOPY/PYELOSCOPY W/ LITHOTRIPSY INCL STENT INSERTION Bilateral 03/17/2024 Laterality: Bilateral; Surgeon: Robson Parnell MD; Location: [facility] UROGRAPHY/PYELOGRAPHY RETROGRADE Bilateral 03/17/2024 Laterality: Bilateral; Surgeon: Robson Parnell MD; Location: [facility] CYSTOURETHROSCOPY W/ URETEROSCOPY/PYELOSCOPY DIAGNOSTIC Right 06/13/2021 Laterality: Right; Surgeon: Juan Dominique MD; Location: [facility] TONSILLECTOMY ADENOIDECTOMY 2012 TOE SURGERY age 13 Social History Tobacco Use Smoking Status Never Smokeless Tobacco Never Social History Substance and Sexual Activity Alcohol Use Not Currently Alcohol/week: 2.0 standard drinks of alcohol Types: 2 Standard drinks or equivalent per week Comment: Special Social Occasions only Physical Examination: Vital Signs: Smoking Status Never Constitutional: Oriented to person, place, and time. Appears well developed and well nourished. Eyes: conjunctiva/corneas clear, normal vision Ears/Nose/Mouth Eyes -EOMI. Ears - External normal ear. Hearing normal. Mouth - Lips normal color. Head/Neck: Face symmetrical, trachea midline, Head - Normocephalic. symmetrical. Normal ROM, neck supple. Thyroid normal. Pulmonary/chest: Normal respiratory effort, non-labored breathing. Abdominal/GI: Soft, non-tender, no organomegaly. Bowel sounds normal. Cardiovascular Normal rate and regular rhythm. No Murmurs or Rubs, Radial pulses normal. Circulation Normal. Neurologic: Alert and oriented x3. No focal neurological deficits noted. Extremities: No clubbing, cyanosis, or edema noted, no calf tenderness bilaterally. Skin: Warm and dry.Normal turgor, well-hydrated, no rashes noted. Psych: Normal mood and affect. Behavior is normal. ASSESSMENT AND PLAN: ICD-10-CM 1. History of nephrolithiasis Z87.442 2. Multiple punctate calcifications of kidney N28.89 - Ms Shirlene returns for 6 week follow up regarding nephrolithiasis, to review renal ultrasound obtained on 05/07/2024. I reviewed imaging in detail with patient I informed that renal ultrasound showed bilateral kidneys with suggestion of potential nonobstructive renal calculi, no hydronephrosis appreciated. I offered further workup with Litholink 24 hour urine test as well as metabolic lab workup to investigate further on why she may be making stones. Patient is agreeable to move forward with labs. We will follow up in 5 weeks time to review results. Follow up 5 weeks to review labs. Patient was advised to call with any questions or concerns. If symptoms worsen patient was advised to follow up in our office or the Emergency Dept. Benefits, Risks, Contraindications, and Complications of recommended treatments were explained the patient understands and agrees to proceed with plan. The documentation within this encounter was likely aided with Tasqe, an electronic senior water/wastewater engineer device. Please excuse any grammatical errors or omissions that may not have been recognized at the time of this encounter. * Lidia Mancilla - 05/16/2024 2:00 PM EDT Lab Results Component Value Date APPEARANCE clear 05/16/2024 COLOR yellow 05/16/2024 SPECIFICGRAV 1.010 05/16/2024 BLOOD large 05/16/2024 PH 7 05/16/2024 PROTEIN neg 05/16/2024 UROBILINOGEN 0.2 05/16/2024 NITRITE neg 05/16/2024 LEUKOCYTE neg 05/16/2024 LEUKOCESTUR NEGATIVE 05/31/2021 * Sixto Martin - 05/16/2024 2:00 PM EDT Nurse Note: Review of Systems Constitutional: Negative. HENT: Negative. Eyes: Negative. Respiratory: Negative. Cardiovascular: Negative. Gastrointestinal: Negative. Endocrine: Negative. Genitourinary: Positive for frequency and urgency. Musculoskeletal: Negative. Skin: Negative. Allergic/Immunologic: Negative. Neurological: Negative. Hematological: Negative. Psychiatric/Behavioral: Negative. Nursing Assessment: Physical Exam Patient comes to office for kidney stones Patient states right flank pain or discomfort. Patient states nocturia x1 Patient has no further questions at this time documented in this [facility]06-11-2024 History of Present illness Narrative* Antwon Martin CNP - 05/10/2024 3:15 PM EDT 05/09/24 Oswaldo Morel 1985 No chief complaint on file. HISTORY of Present Illness: Oswaldo Morel is a 38 y.o. year old female that presents today with No chief complaint on file. . Oswaldo Morel has had injections in the past. Last injection to right knee and right shoulder was over 3 months ago and they tolerated well. They have been treated w/ oral medications & injections. Patient denies new injury to the knees or shoulder. The following portions of the patient's history were reviewed and updated as appropriate: allergies, current medications, past surgical history and problem list Assessment No documentation. Referred By: No ref. provider found PAST MEDICAL HISTORY The patient's Medications, Allergies, Past Surgical History, Medical History, Family History and Social History were reviewed and can be found in their online medical record, and I have reviewed thisinformation with Oswaldo Morel at the time of their visit. They are significant for Past Medical History: Diagnosis Date Atrial fibrillation (HCC) Disease of thyroid gland Hypertension Osteoarthritis osteoarthritis PHYSICAL EXAM Ortho Exam Additional Notes: IMAGING Notes: none new today. Reviewed from last visit. IMPRESSION And PLAN: Cortisone injection today. Will follow up in 3 months if effective. Call if no improvement in 10 days. 1. Acute pain of right shoulder Antwon Martin CNP * Antwon Martin CNP - 05/10/2024 3:15 PM EDTAssociated Order(s): LG Jt Injection/Arthrocentesis: R subacromial bursa Post-Procedure Diagnose(s): Acute pain of right shoulder LG Jt Injection/Arthrocentesis: R subacromial bursa Performed by: Antwon Martin CNP Authorized by: Antwon Matrin CNP CPT 24618 - Large Joint Arthrocentesis: Consent given by: Patient Time out: Immediately prior to the procedure a time out was called Physician or proceduralist has discussed critical or nonroutine steps, procedure duration and anticipated blood loss: Yes Supporting Documentation: Indications: Pain Procedure Details: Location: Shoulder Site: R subacromial bursa Prep: patient was prepped and draped in usual sterile fashion Needle size: 22 G Approach: Posterior Medications: 1 mL dexAMETHasone 4 mg/mL, 1 mL triamcinolone acetonide 40 mg/mL Anesthetic used: Bupivacaine 0.25% Anesthetic amount (mL): 3 Patient tolerance: Patient tolerated the procedure well with no immediate complications * Antwon Martin CNP - 05/10/2024 3:10 PM EDTAssociated Order(s): LG Jt Injection/Arthrocentesis: R knee Post-Procedure Diagnose(s): Primary osteoarthritis of right knee LG Jt Injection/Arthrocentesis: R knee Performed by: Antwon Martin CNP Authorized by: Antwon Martin CNP CPT 61420 - Large Joint Arthrocentesis: Consent given by: Patient Time out: Immediately prior to the procedure a time out was called Physician or proceduralist has discussed critical or nonroutine steps, procedure duration and anticipated blood loss: Yes Supporting Documentation: Indications: Pain Procedure Details: Location: Knee Site: R knee Prep: patient was prepped and draped in usual sterile fashion Needle size: 22 G Approach: Anterolateral Medications: 1 mL dexAMETHasone 4 mg/mL, 1 mL triamcinolone acetonide 40 mg/mL Anesthetic used: Lidocaine 1% and Bupivacaine 0.25% Anesthetic amount (mL): 3 Patient tolerance: Patient tolerated the procedure well with no immediate complications documented in this [id number] History of Present illness Narrative* Edwina Travis - 04/29/2024 3:30 PM EDT Nurse Note: Review of Systems Constitutional: Positive for fatigue (occassionally). Negative for unexpected weight change. Eyes: Negative for visual disturbance. Respiratory: Negative for shortness of breath. Gastrointestinal: Negative for constipation, diarrhea, nausea and vomiting. Endocrine: Positive for polydipsia. Negative for polyuria. Neurological: Negative for numbness. Psychiatric/Behavioral: Negative for sleep disturbance. Nursing Assessment: Physical Exam * Jesus Alvarez CNP - 04/29/2024 3:30 PM EDT Subjective History of Present Illness Diabetes Thyroid Problem Type 2 Diabetes:Today is patients second visit to the office for sue pro download and log book review. She states she was diagnosed with type 2 diabetes about 3 years ago. Family history of diabetes include her mom, dad, and brother. She is currently taking Metformin XR 500 mg 2 tablets twice daily, Lantus 20 units daily, Ozempic 0.25 mg weekly, and Jardiance 10 mg daily. She was previously on Mounjaro but this was stopped when she was trying to get . This is on hold for now. Labs demonstrated hemoglobin A1c = 9.0 up from 8.7%, blood rwoucah=741, GFR=99, LDL = 187, triglycerides = 425. She tries to check her blood sugars every morning but sometimes she does forget. She isinterested in a personal CGM but she states that her insurance has denied this. Her morning blood sugars are not below 200. She eats three meals and one snack daily. She drinks mostly water. She tries to eat balanced meals with more protein and less carbs. She has met with our our certified breastfeeding educator, but not the security systems manager yet. Her last visit with Ophthalmology was November 2023 and she denies complications from diabetes. She sees Dr. Presley Bullock(?). She states her right great toe is numb on the medial side from previous ingrown toenail removal. She does have some chronic pain to the right foot due to an extra bone (?), she will be seeing Dr. García on 05/24/2024. She denies pancreatitis. She has kidney stones but no other kidney issues. She has personal history of PVC's and sees Dr. Khalilwith Cardiology. She does have a great amount of stress in her life right now. She states her mother a year ago and she has been caring for her father since. She is also taking care of her brother. 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 Blood pressure above target today in office. No LUZMA or ARB therapy. She is currently taking the rosuvastatindaily again. Hypothyroidism: She is also referred for hypothyroidism/ag's. States she was 12 years old when she was diagnosed with thyroid issues and possible PCOS. 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 Family history of thyroid disease includes both of her parents who had hypothyroidism. She states that she does not take biotin but she was taking vitamins as she was trying to get but this is on hold for now. She states she has been off her vitamin for about 2 weeks. Previous thyroid labs were drawn with vitamin interference. Recent labs without vitamin demonstrate TSH = 1.93 down from 3.59, Free T4=1.07, and Free T3=2.86.All thyroid antibodies are negative. Patient currently takes levothyroxine 112 mcg daily. She does take this 1st thing in the morning but with her other medications which did include a multivitamin but she has since this. She does wait about 1-2 hours to eat food. Last menstrual period was in March. She is complaining of some fatigue but due to her hyperglycemia she is unsure if these are related to her thyroid or not. She is not complaining of dysphagia, dyspnea, difficulty sleeping, or heart palpitations. She does have a history of PVCs. She does see Dr. Khalil with Cardiology. She has never had a thyroid ultrasound. Objective Review of Systems Nurse Note: Review of Systems Constitutional: Positive for fatigue (occassionally). Negative for unexpected weight change. Eyes: Negative for visual disturbance. Respiratory: Negative for shortness of breath. Gastrointestinal: Negative for constipation, diarrhea, nausea and vomiting. Endocrine: Positive for polydipsia. Negative for polyuria. Neurological: Negative for numbness. Psychiatric/Behavioral: Negative for sleep disturbance. Nursing Assessment: Physical Exam Vitals: Height 1.626 m (5' 4.02), weight 125.4 kg (276 lb 6.4 oz), not currently . Physical Exam Constitutional: General: She is not in acute distress. Appearance: Normal appearance. HENT: Head: Normocephalic. Eyes: Conjunctiva/sclera: Conjunctivae normal. Neck: Vascular: No carotid bruit. Comments: Thyroid palpates soft, no nodules felt. Negative Marcello test. No acanthosis to neck. Cardiovascular: Rate and Rhythm: Normal rate and regular rhythm. Pulses: Normal pulses. Heart sounds: Normal heart sounds. Pulmonary: Effort: Pulmonary effort is normal. No respiratory distress. Breath sounds: Normal breath sounds. Musculoskeletal: Cervical back: Normal range of motion and neck supple. No tenderness. Skin: General: Skin is warm and dry. Neurological: General: No focal deficit present. Mental Status: She is alert and oriented to person, place, and time. Psychiatric: Mood and Affect: Mood normal. Behavior: Behavior normal. Neurological Exam Mental Status Alert. Oriented to person, place, and time. Foot exam: Needs done at follow up. Assessment and Plan Type 2 diabetes: Discussed discussed CGM download, log book, and labs with patient today. CGM data is demonstrating time in target range of 40% with a GMI = 7.9%. 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 This will be sent to her pharmacy. Based on CGM data and discussion with patient we are going to continue with the Ozempic, Jardiance, metformin, and increase Lantus to30 units daily. t she has met with our certified breastfeeding educator, but not the dietitian yet. She is waitingto hear from them. I would like to see her back in 3 months with CGM download and labs Hypothyroidism: Discussed discussed thyroid labs in negative thyroid antibodies. TSH is at target. Patient has no complaints. I would like for her to continue the Levothyroxine 112 mcg daily. Would like to see her back in 3 months with labs for this as well. All questions answered and she understands and agrees to proceed. We will continue to follow for diabetes and hypothyroidism. [facility]* Jesus Alvarez CNP - 04/29/2024 3:30 PM EDTAssociated Order(s): RI CONTINUOUS GLUCOSE MONITORING ANALYSIS I&R CGM download demonstrates time in target range 40%, high 52%, very high 8%, low/very low 0%. GMI = 7.9%. CGM data is demonstrating postprandial hypoglycemia after most meals. She does have periods where her blood sugar is in target range. Overnight blood sugars still slightly elevated. Based on CGMdata and discussion with patient we are going to increase her Lantus, continue metformin, continue Jardiance, and increase the Ozempic. We will re-evaluate in 3 months. [facility] Procedure note* Jesus Alvarez CNP - 04/29/2024 3:30 PM EDTAssociated Order(s): RI CONTINUOUS GLUCOSE MONITORING ANALYSIS I&R CGM download demonstrates time in target range 40%, high 52%, very high 8%, low/very low 0%. GMI = 7.9%. CGM data is demonstrating postprandial hypoglycemia after most meals. She does have periods where her blood sugar is in target range. Overnight blood sugars still slightly elevated. Based on CGMdata and discussion with patient we are going to increase her Lantus, continue metformin, continue Jardiance, and increase the Ozempic. We will re-evaluate in 3 months. [facility] History of Present illness Narrative* Millicent Sue RN - 04/28/2024 3:00 PM EDT Diabetes Self Management Education Record Progress Note Participant Name: Oswaldo Referring Provider: Jesus Alvarez CNP [place] to learning: Considerations: Emotional and Psycho-social If considerations are noted, accommodations made: Individual session due to lack of group session availability. Identified barriers to learning/self management: Life stress due to being primary caregiver to disabled father and brother. The following information was discussed: Diabetes disease process and treatment options, Healthy nutrition, carbohydrate counting, meal planning, Monitoring blood glucose and other parameters: interpreting and using results, Medication management and safety, Diabetes distress and support, Exercise for Health, Reducing Risks for Heart Disease, Diabetes and Heart Health: incorporation physical activity into lifestyle, and Developing personalized strategies to promote health and behavior change through goal setting, behavior change strategies aimed at risk reduction Time spent with patient 60 minutes Next Appointment May 18, 2024 Instruction Method: Lecture/Discussion, Handouts, and Return Demonstration Education Materials/Equipment Provided: Diabetes Self Management Support Plan: To assist and support your continued progress in managing your diabetes following education- Gym or exercise program of your choice. (Suggestions: [employer], [employer], any exercise facilityand your local Physical Therapy or Cardiac Rehabilitation exercise Program), ADA website: Http://www.diabetes.org, and Diabetes Interview: [place] I met with Oswaldo today to do DSME education. We did the diabetes education assessment and reviewedthose topics of healthy coping, monitoring, being active, medications, healthy eating, problem solving, and risk reduction. She has good grasp of diabetes on a general level but it still working on her self- management. She had a Sue pro on but this fell off early. She did present this at visit and a download was obtained. I reviewed data with her so that she could familiarize herself with the report data. Seeing her numbers and trends, she states she feels motivated to make changes to lifestyle. She voices frustration at being able to find times to work out due to needing to take care of her father and brother. She does not skip doses. She does FSBG checks in the AM and keeps a food log. documented in this [facility]05-16-[facility]24 History of Present illness Narrative* Christiana Arreola - 04/14/2024 8:00 AM EDT Nurse Note: Review of Systems Constitutional: Positive for diaphoresis and fatigue. Negative for unexpected weight change. HENT: Negative for trouble swallowing and voice change. Eyes: Negative for pain and visual disturbance. Respiratory: Negative for cough and shortness of breath. Cardiovascular: Positive for leg swelling. Negative for chest pain and palpitations. Gastrointestinal: Positive for constipation and diarrhea. Negative for nausea and vomiting. Endocrine: Positive for heat intolerance and polydipsia. Negative for cold intolerance and polyuria. Musculoskeletal: Negative for neck pain. Neurological: Negative for tremors and numbness. Psychiatric/Behavioral: Negative for sleep disturbance. The patient is not nervous/anxious. Nursing Assessment: Physical Exam * Jesus Alvarez CNP - 04/14/2024 8:00 AM EDT Subjective History of Present Illness Diabetes Thyroid Problem Type 2 Diabetes:Today is patients first visit to the office. She was referred by Elisabeth Gregg CNP.Referral information reviewed prior to this visit. She states she was diagnosed with type 2 diabetes about 3 years ago. Family history of diabetes include her mom, dad, and brother. She is currently taking Metformin XR 500mg 2 tablets twice daily and Lantus 20 units daily. She was previously on Mounjaro but this was stopped when she was trying to get . This is on hold for now. Labs from October 2023 demonstrated hemoglobin A1c = 8.7%, blood inoutgu=653, GVQ=766, LDL = 164, triglycerides = 267. She tries to check her blood sugars every morning but sometimes she does forget. She is interested in a personal CGM but she states that her insurance has denied this. Her morning blood sugars are not below 200. She eats three meals and one snack daily. She drinks mostly water. She tries toeat balanced meals with more protein and less carbs. She is interested in meeting with our security systems manager and our certified breastfeeding educator. Her last visit with Ophthalmology was November 2023 and she denies complications from diabetes. She sees Dr. Presley Bullock(?). She states her right great toe is numb on the medial side from previous ingrown toenail removal. She does have some chronic pain to the right foot due to an extra bone (?), she would like a referral to podiatry. She denies pancreatitis. She has kidney stones but no other kidney issues. She has personal history of PVC's and sees Dr. Khalil with Cardiology. She does have a great amount of stress in her life right now. She states her mother a year ago and she has been caring for her father since. She is also taking care of her brother. 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 Blood pressureabove target today in office. No LUZMA or ARB therapy. No statin therapy. Hypothyroidism: She is also referred for hypothyroidism/ag's. States she was 12 years old when she was diagnosed with thyroid issues and possible PCOS. 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 Family history of thyroid disease includes both of her parents who had hypothyroidism. She states that she does not take biotin but she was taking vitamins as she was trying to get but this is on hold for now. She states she has been off her vitamin for about 2 weeks. Previous thyroid labs were drawn with vitamin interference. Labs from October 2023 demonstrate TSH = 3.59. Patient currently takes levothyroxine 112 mcg daily. She does take this 1st thing in the morning but with her other medications which does include a multivitamin. She does wait about 1-2 hours to eat food. Last menstrual period was March 19 and it lasted about 5-7 days. She is complaining of some fatigue but due to her hyperglycemia she is unsure if these are related to her thyroid or not. She is not complaining of dysphagia, dyspnea, difficulty sleeping, or heart palpitations. She does have a history of PVCs. She does see Dr. Khalil with Cardiology. She has never had a thyroid ultrasound. Objective Review of Systems Nurse Note: Review of Systems Constitutional: Positive for diaphoresis and fatigue. Negative for unexpected weight change. HENT: Negative for trouble swallowing and voice change. Eyes: Negative for pain and visual disturbance. Respiratory: Negative for cough and shortness of breath. Cardiovascular: Positive for leg swelling. Negative for chest pain and palpitations. Gastrointestinal: Positive for constipation and diarrhea. Negative for nausea and vomiting. Endocrine: Positive for heat intolerance and polydipsia. Negative for cold intolerance and polyuria. Musculoskeletal: Negative for neck pain. Neurological: Negative for tremors and numbness. Psychiatric/Behavioral: Negative for sleep disturbance. The patient is not nervous/anxious. Vitals: Blood pressure 140/82, pulse 84, height 1.626 m (5' 4.02), weight 130.2 kg (287 lb), last menstrual period 02/17/2024, SpO2 98%, not currently . Physical Exam Constitutional: General: She is not in acute distress. Appearance: Normal appearance. HENT: Head: Normocephalic. Eyes: Conjunctiva/sclera: Conjunctivae normal. Neck: Vascular: No carotid bruit. Comments: Thyroid palpates soft, no nodules felt. Negative [place] test. No acanthosis to neck. Cardiovascular: Rate and Rhythm: Normal rate and regular rhythm. Pulses: Normal pulses. Heart sounds: Normal heart sounds. Pulmonary: Effort: Pulmonary effort is normal. No respiratory distress. Breath sounds: Normal breath sounds. Musculoskeletal: Cervical back: Normal range of motion and neck supple. No tenderness. Skin: General: Skin is warm and dry. Neurological: General: No focal deficit present. Mental Status: She is alert and oriented to person, place, and time. Psychiatric: Mood and Affect: Mood normal. Behavior: Behavior normal. Neurological Exam Mental Status Alert. Oriented to person, place, and time. Foot exam: Needs done at follow up. Assessment and Plan Type 2 diabetes: Discussed medical history, last labs, and current medications. Discussed that I would like to gather more glycemic data to base treatment decisions on. She is interested in her a sue 3 CGM if covered by her insurance. I will send this to her pharmacy. I have asked her to wear theoffice sue pro sensor and to keep a log book for the next two weeks and she is agreeable. We discussed adding Ozempic and Jardiance to her medication regimen due to her heart history, kidney issuesand need for better glycemic control. She is wanqting to do this. Mechanism of action and side effects discussed for both medications. Titration schedule for Ozempic discussed as well. I am sending in Ozempic 0.25 mg weekly and Jardiance 10 mg daily. If she is able to get these I have advised her to start them. She is over due for labs these will be ordered. I would like for her to get these doneprior to her follow up as well. . She is wanting a referral to a clean room operator for right foot issues, this will be sent to Dr. García. She is interested in meeting with our security systems manager and diabetes educat or. Referrals sent. She is out of lantus, refill sent. I would like to see her back in about 2 weeks to review CGM download, logbook, and labs Hypothyroidism: Discussed medical history, labs, and current medication dose with patient today. Since previous labs were drawn with biotin interference I would like for her to have labs re drawn nowthat she has been off of the that had biotin in it. I am also checking thyroid antibodies.She is going to start taking her mulitivitamin in the evening to prevent interference with the levothyroxine. I would like for her to continue the Levothyroxine 112 mcg daily for now. We will determine any medication dose changes from the lab results. All questions answered and she understands and agrees to proceed. We will continue to follow for diabetes and hypothyroidism. * Christiana Arreola - 04/14/2024 8:00 AM EDT Sue placed on patient's upper (/Left) arm without difficulty. FAQ Sheet reviewed and given to patient. Patient instructed on the care and risks of the sensor. Blood glucose log reviewed and given to patient. Patient instructed to continue to check blood sugar as directed. Patient voiced understanding and will call the clinic with any questions or concerns. Lot #[id number] Serial #[id number] Expiration date:08/29/2024 Nurse Note: Review of Systems Nursing Assessment: Physical Exam [facility] History of Present illness Narrative* Monik Schwartz LPN - 03/28/2024 10:00 AM EDT Nurse Note: Review of Systems Constitutional: Negative. HENT: Negative. Eyes: Negative. Respiratory: Negative. Cardiovascular: Negative. Gastrointestinal: Negative. Endocrine: Negative. Genitourinary: Negative. Musculoskeletal: Negative. Skin: Negative. Allergic/Immunologic: Negative. Neurological: Negative. Hematological: Negative. Psychiatric/Behavioral: Negative. Nursing Assessment: Physical Exam Patient comes to us today for Stent removal * Robson Parnell MD - 03/28/2024 10:00 AM EDTAssociated Order(s): CYSTOSCOPY Post-Procedure Diagnose(s): Kidney stone CYSTOSCOPY Date/Time: 03/28/2024 10:00 AM Performed by: Robson Parnell MD Authorized by: Robson Parnell MD The attending physician was present for the entire procedure. Pre-Procedure: Indications: kidney stone(s) Detailed information of all possible complications and side effects were discussed with the patient, these include but not only; UTI, sepsis, hematuria, incontinence, urethral injury and cardiovascular complications. Informed consent was obtained. Does this procedure require a Savage Protocol? Yes. Savage Protocol is required. The patient was given one dose of antibiotics. Urine was not collected. Procedure: Procedure performed: cystoscopy and stent removal The patient was placed supine with all pressure points well padded. Patient was prepped and draped in the usual sterile fashion with chlorhexidine. lidocaine 2% topical gel was inserted into urethra for local anesthesia. The flexible cystoscope was lubricated and placed into the urethral tract. A 360 survey of the bladder was performed. The cystoscope was removed following any additional procedures documented below. Findings: The urinary meatus appeared normal. No tumors observed. No stones found. The urethra was inspected. No foreign body(s) present in urethra. No urethral diverticulum observed. No urethral stricture found. Additional procedure details: Stent removal location: bilateral ureters The existing ureteral stent(s) were identified. The stent(s) were grabbed with a flexible grasper and pulled to the meatus The stent was removed. Post Procedure: Patient tolerated procedure with no immediate complications Post-procedure antibiotics were given (see MAR for details) EBL: minimal Provided education regarding water intake of at least 2 liters per day. Follow up in 6 weeks with renal ultrasound. [facility] Nurse Note* Nursing Notes - Catalina Wilkinson RN - 03/17/2024 2:34 PM EDT Patient discharged at this time via wheelchair to care of father who is driving patient meets discharge criteria. Patient discharged via wheelchair [facility] Miscellaneous Notes* Nursing Notes - Catalina Wilkinson RN - 03/17/2024 2:34 PM EDT Patient discharged at this time via wheelchair to care of father who is driving patient meets discharge criteria. Patient discharged via wheelchair * Nursing Notes - Catalina Wilkinson RN - 03/17/2024 1:58 PM EDT Patient discharge instructions reviewed with patient and family at bedside, all questions answered. * Nursing Notes - Catalina Wilkinson RN - 03/17/2024 1:34 PM EDT Patient having back pain and abdominal cramping. Patient medicated at this time * Nursing Notes - Catalina Wilkinson RN - 03/17/2024 12:40 PM EDT Patient ambulated to the bathroom w staff assist. She was able to urinate. * Op Note - Robson Parnell MD - 03/17/2024 12:07 PM EDT Preoperative diagnosis bilateral kidney stone Postoperative diagnosis bilateral kidney stone Procedure performed 1. Cystoscopy, bilateral retrograde pyelogram with ureteral stent placement. 2. Bilateral ureteroscopy with holmium-YAG laser lithotripsy (CPT 82221-50) 3. Fluoroscopy time < 1 hour with professional interpretation of images (CPT 34538) Attending surgeon Robson Parnell MD Anesthesia General Estimated Blood Loss minimal Complications None Specimen none Blood Loss minimal Findings Urethroscopy revealed no strictures or other abnormalities. Cystoscopy revealed no tumors, stones or other mucosal abnormalities. Left retrograde pyelogram revealed a delicate system with identification of the stone seen on pre-op imaging. No other filling defects and caliber of left ureter was smooth and normal. Ureteral stentwas in good position at the end of the case. Right retrograde pyelogram revealed a delicate system with identification of the stone seen on pre-op imaging. No other filling defects and caliber of right ureter was smooth and normal. Ureteral stent was in good position at the end of the case. Of note, patient has significant judy's plaques in all calyces. Indications 38 y.o. female presented with multiple bilateral renal stones, potentially causing obstruction and extreme (8-9/10) pain, and agreed to undergo the above named procedure after discussion of the alternatives, risks and benefits. Informed consent was obtained. Procedure The patient was taken to the operating room and placed supine on the operating table. Pre-operativeantibiotics were administered. Bilateral lower extremity SCDs were placed. After induction of general anesthesia the patient was positioned in dorsal lithotomy, prepped and draped in a sterile fashion. A time- out was performed, and all present were in agreement with the plan. A rigid cystoscope was passed carefully via urethra into the bladder. Cystoscopy was negative for any bladder mucosal lesions. The left ureteral orifice was identified and intubated with a 5-Fr ureteral catheter, and 7cc isovue contrast was injected performing a retrograde pyelogram. See findings for interpretation. A Sensor wire was passed retrograde through the catheter to the level of the kidney and confirmed by fluoroscopy. The cystoscope was off-loaded and the bladder emptied. A ureteral access sheath was placed over the sensor wire, and a working wire placed through it, confirmed on fluoroscopy to be in good position. The sheath was removed and then replaced over the working wire, leaving the safety wire in place. I then advanced the flexible - [employer] disposable ureteroscope scope to the stone. The kidney stone was identified and fragmented with a 200-micron laser fiber. The any fragments larger than 1mm were basket extracted or dusted. At the completion of the procedure, all clinically si gnificant fragments were removed and only dust-like fragments remained. The access sheath was removed under direct vision. Ureteral edema but no obvious obstruction was present. A 6 Fr x 22-30 cm variable length stent was positioned with the upper end in the upper pole and the lower in the bladder confirmed by fluoroscopy. The left ureteral orifice was identified and intubated with a 5-Fr ureteral catheter, and 7cc isovue contrast was injected performing a retrograde pyelogram. See findings for interpretation. A Sensor wire was passed retrograde through the catheter to the level of the kidney and confirmed by fluoroscopy. The cystoscope was off-loaded and the bladder emptied. A ureteral access sheath was placed over the sensor wire, and a working wire placed through it, confirmed on fluoroscopy to be in good position. The sheath was removed and then replaced over the working wire, leaving the safety wire in place. I then advanced the flexible - [employer] disposable ureteroscope scope to the stone. The kidney stone was identified and fragmented with a 200-micron laser fiber. The any fragments larger than 1mm were basket extracted or dusted. At the completion of the procedure, all clinically si gnificant fragments were removed and only dust-like fragments remained. The access sheath was removed under direct vision. Ureteral edema but no obvious obstruction was present. A 6 Fr x 22-30 cm variable length stent was positioned with the upper end in the upper pole and the lower in the bladder confirmed by fluoroscopy. The bladder was emptied and the procedure was complete. The patient tolerated the procedure well and was stable throughout, and transferred to the recovery room In stable condition. PostOperative Plan Patient will return for a stent removal in 1-2 weeks, and then followup in 6 weeks with a renal ultrasound. Of note, patient has significant judy's plaques in all calyces. Robson Parnell MD * Brief Op Note - Robson Parnell MD - 03/17/2024 12:02 PM EDT POST OPERATIVE/PROCEDURE NOTE Oswaldo Moerl ([id number]) SURGEON Surgeons and Role: * Robson Parnell MD - Primary SENIOR STATISTICIAN None ANESTHESIOLOGIST TELEPHONE INTERVIEWER: Juan Davis CRNA SURGICAL STAFF Nail Expert: Cherelle Kumar RN; Nina Regalado RN Chart Writer: Urmila Gerardo Scrub Person: Sole Aydee PROCEDURE PERFORMED Procedure(s) (LRB): *[place]: Holmium Laser #[id number]* CYSTOURETHROSCOPY W/ URETEROSCOPY/ PYELOSCOPY W/ LITHOTRIPSY INCL STENT INSERTION (Bilateral) UROGRAPHY/PYELOGRAPHY RETROGRADE (Bilateral) PRIMARY CLOSURE N/A ANESTHESIA (type of) General ESTIMATED BLOOD LOSS Minimal DRAINS None BLOOD PRODUCTS None FLUIDS Intake/Output Summary (Last 24 hours) at 03/17/2024 1202 Last data filed at 03/17/2024 1115 Gross per 24 hour Intake 100 ml Output -- Net 100 ml PRE OPERATIVE DIAGNOSIS Nephrolithiasis [N20.0] POST OPERATIVE DIAGNOSIS Post-Op Diagnosis Codes: * Nephrolithiasis [N20.0] FINDINGS No significant abnormalities CONDITION OF PATIENT stable COMPLICATIONS None GRAFTS AND/OR IMPLANTS See OR Nursing Documentation SPECIMENS No specimen sent * No specimens in log * Robson Parnell MD March 17, 2024 12:02 PM * Nursing Notes - Radha Wilkes RN - 03/17/2024 8:[address] Parnell at bedside to talk with patient regarding surgery. [facility] Nurse Note* Nursing Notes - Catalina Wilkinson RN - 03/17/2024 1:58 PM EDT Patient discharge instructions reviewed with patient and family at bedside, all questions answered. [facility] Nurse Note* Nursing Notes - Catalina Wilkinson RN - 03/17/2024 1:34 PM EDT Patient having back pain and abdominal cramping. Patient medicated at this time [facility] Nurse Note* Nursing Notes - Catalina Wilkinson RN - 03/17/2024 12:40 PM EDT Patient ambulated to the bathroom w staff assist. She was able to urinate. [facility]04-18-2024 Nurse Note* Kat Khalil RN - 03/17/2024 12:30 PM EDT Patient transferred to via cart in stable condition. Report given to SAMPSON Arnold. Cart left in locked and lowest position with side rails up x2. Snack and call light given to patient. Monitors and alarms on and attached to patient. * Cherelle Kumar RN - 03/17/2024 12:08 PM EDT Patient taken to PACU via cart with rebeca RN and Juan GONZALES. Report given to Kat BRADEN. [facility] Surgical operation note* Kat Khalil RN - 03/17/2024 12:30 PM EDT Patient transferred to via cart in stable condition. Report given to SAMPSON Arnold. Cart left in locked and lowest position with side rails up x2. Snack and call light given to patient. Monitors and alarms on and attached to patient. [facility]04-18-2024 Nurse Surgical operation note* Cherelle Kumar RN - 03/17/2024 12:08 PM EDT Patient taken to PACU via cart with this RN and Juan GONZALES. Report given to Kat BRADEN. [facility]04-18-2024 Surgery Postoperative evaluation and management note* Op Note - Robson Parnell MD - 03/17/2024 12:07 PM EDT Preoperative diagnosis bilateral kidney stone Postoperative diagnosis bilateral kidney stone Procedure performed 1. Cystoscopy, bilateral retrograde pyelogram with ureteral stent placement. 2. Bilateral ureteroscopy with holmium-YAG laser lithotripsy (CPT 69710-45) 3. Fluoroscopy time < 1 hour with professional interpretation of images (CPT 45077) Attending surgeon Robson Parnell MD Anesthesia General Estimated Blood Loss minimal Complications None Specimen none Blood Loss minimal Findings Urethroscopy revealed no strictures or other abnormalities. Cystoscopy revealed no tumors, stones or other mucosal abnormalities. Left retrograde pyelogram revealed a delicate system with identification of the stone seen on pre-op imaging. No other filling defects and caliber of left ureter was smooth and normal. Ureteral stentwas in good position at the end of the case. Right retrograde pyelogram revealed a delicate system with identification of the stone seen on pre-op imaging. No other filling defects and caliber of right ureter was smooth and normal. Ureteral stent was in good position at the end of the case. Of note, patient has significant judy's plaques in all calyces. Indications 38 y.o. female presented with multiple bilateral renal stones, potentially causing obstruction and extreme (8-9/10) pain, and agreed to undergo the above named procedure after discussion of the alternatives, risks and benefits. Informed consent was obtained. Procedure The patient was taken to the operating room and placed supine on the operating table. Pre-operativeantibiotics were administered. Bilateral lower extremity SCDs were placed. After induction of general anesthesia the patient was positioned in dorsal lithotomy, prepped and draped in a sterile fashion. A time- out was performed, and all present were in agreement with the plan. A rigid cystoscope was passed carefully via urethra into the bladder. Cystoscopy was negative for any bladder mucosal lesions. The left ureteral orifice was identified and intubated with a 5-Fr ureteral catheter, and 7cc isovue contrast was injected performing a retrograde pyelogram. See findings for interpretation. A Sensor wire was passed retrograde through the catheter to the level of the kidney and confirmed by fluoroscopy. The cystoscope was off-loaded and the bladder emptied. A ureteral access sheath was placed over the sensor wire, and a working wire placed through it, confirmed on fluoroscopy to be in good position. The sheath was removed and then replaced over the working wire, leaving the safety wire in place. I then advanced the flexible - [employer] disposable ureteroscope scope to the stone. The kidney stone was identified and fragmented with a 200-micron laser fiber. The any fragments larger than 1mm were basket extracted or dusted. At the completion of the procedure, all clinically si gnificant fragments were removed and only dust-like fragments remained. The access sheath was removed under direct vision. Ureteral edema but no obvious obstruction was present. A 6 Fr x 22-30 cm variable length stent was positioned with the upper end in the upper pole and the lower in the bladder confirmed by fluoroscopy. The left ureteral orifice was identified and intubated with a 5-Fr ureteral catheter, and 7cc isovue contrast was injected performing a retrograde pyelogram. See findings for interpretation. A Sensor wire was passed retrograde through the catheter to the level of the kidney and confirmed by fluoroscopy. The cystoscope was off-loaded and the bladder emptied. A ureteral access sheath was placed over the sensor wire, and a working wire placed through it, confirmed on fluoroscopy to be in good position. The sheath was removed and then replaced over the working wire, leaving the safety wire in place. I then advanced the flexible - [employer] disposable ureteroscope scope to the stone. The kidney stone was identified and fragmented with a 200-micron laser fiber. The any fragments larger than 1mm were basket extracted or dusted. At the completion of the procedure, all clinically si gnificant fragments were removed and only dust-like fragments remained. The access sheath was removed under direct vision. Ureteral edema but no obvious obstruction was present. A 6 Fr x 22-30 cm variable length stent was positioned with the upper end in the upper pole and the lower in the bladder confirmed by fluoroscopy. The bladder was emptied and the procedure was complete. The patient tolerated the procedure well and was stable throughout, and transferred to the recovery room In stable condition. PostOperative Plan Patient will return for a stent removal in 1-2 weeks, and then followup in 6 weeks with a renal ultrasound. Of note, patient has significant judy's plaques in all calyces. Robson Parnell MD [facility] Work Phone: [phone] Surgery Postoperative evaluation and management note* Brief Op Note - Robson Parnell MD - 03/17/2024 12:02 PM EDT POST OPERATIVE/PROCEDURE NOTE Oswaldo Morel ([id number]) SURGEON Surgeons and Role: * Robson Parnell MD - Primary SENIOR STATISTICIAN None ANESTHESIOLOGIST TELEPHONE INTERVIEWER: Juan Davis CRNA SURGICAL STAFF Nail Expert: Cherelle Kumar RN; Nina Regalado RN Chart Writer: Urmila Gerardo Scrub Person: Sole Bajwa PROCEDURE PERFORMED Procedure(s) (LRB): *[place]: Holmium Laser #[id number]* CYSTOURETHROSCOPY W/ URETEROSCOPY/ PYELOSCOPY W/ LITHOTRIPSY INCL STENT INSERTION (Bilateral) UROGRAPHY/PYELOGRAPHY RETROGRADE (Bilateral) PRIMARY CLOSURE N/A ANESTHESIA (type of) General ESTIMATED BLOOD LOSS Minimal DRAINS None BLOOD PRODUCTS None FLUIDS Intake/Output Summary (Last 24 hours) at 03/17/2024 1202 Last data filed at 03/17/2024 1115 Gross per 24 hour Intake 100 ml Output -- Net 100 ml PRE OPERATIVE DIAGNOSIS Nephrolithiasis [N20.0] POST OPERATIVE DIAGNOSIS Post-Op Diagnosis Codes: * Nephrolithiasis [N20.0] FINDINGS No significant abnormalities CONDITION OF PATIENT stable COMPLICATIONS None GRAFTS AND/OR IMPLANTS See OR Nursing Documentation SPECIMENS No specimen sent * No specimens in log * Robson Parnell MD March 17, 2024 12:02 PM [facility]04-18-2024 Hospital Discharge instructions* Discharge Instructions* Catalina Wilkinson RN - 03/17/2024 9:25 AM EDT Postoperative Instructions for Ureteroscopy 1) Blood in the urine, pain with urination, bladder discomfort, urinary frequency and urinary urgency are common after ureteroscopy and should begin to improve 72 hours after surgery. 2) Hydrate well to keep the urine faint pink to clear. 3) If your ureteroscopy was done to treat kidney stones, you will need to strain your urine for stones. Place the stone fragments in a dry container and bring them to the urology clinic during your next visit. The fragments will be sent for analysis. 4) If you have a ureteral stent you will be given a separate instruction sheet about the stent. 5) You may alternate 600-800 mg ibuprofen every 8 hours with 650 mg acetaminophen. Postoperative Instructions for Ureteral Stents 1) A stent is a soft, flexible, plastic tube place inside the ureter to help the ureter drain. 2) Your stent may have strings attached to it and you may see these strings at the end of your urethra or the end of your penis. DO NOT PULL THE STRINGS as it may dislodge the stent. 3) The stent strings, if present, will sometimes retract and disappear into the urethra. The strings may reappear when you urinate. At the time of your follow- up appointment, please inform the front man if your strings have retracted and can no longer be seen. 4) You may shower with the stent. 5) Blood in the urine, pain with urination, bladder discomfort, urinary frequency and urinary urgency are common side effects of ureteral stents. These side effects can be made worse by vigorous exercise or strenuous activity. 6) Continuous leakage of urine can be an indication that the stent is dislodged. Please contact theclinic if you experience this symptom. Call the clinic during duty hours when there is dark blood in the urine that does not improve with several hours of rest and hydration, pain that is not relieved by prescription medications, continuous leakage of urine, or fever greater than 101 degrees F. 1) Please contact the urology clinic for any further questions or concerns during normal duty hours(0800 to 1600 Thursday through Thursday) at [phone]. 2) If you need emergent help or to be seen after normal duty hours go to the Emergency Room. YOU CAN ALTERNATE TYLENOL AND IBUPROFEN FOR PAIN CONTROL. Anesthesia Precautions & Expectations: After anesthesia, rest for [address], drink alcoholic beverages or make any important decisions during this time. General anesthesia may cause a sore throat, jaw discomfort or muscle aches. These symptoms can last for one or two days. * Attachments The following attachments cannot be sent through Care Everywhere. * Laser Lithotripsy: Post-op (Iranian) * Ureteral Stent Placement: Post-op (Iranian) [facility] Note* Nursing Notes - Radha Wilkes RN - 03/17/2024 8:[address] Parnell at bedside to talk with patient regarding surgery. [facility]04-05-2024 History and physical note* Aaron Colbert DO - 03/04/2024 1:45 PM EDT CC: Chief Complaint Patient presents with Abdominal Pain HPI: She presents for evaluation of mild RUQ pain. Onset of symptoms was several months ago, clinical course intermittent since that time. She describes the pain as aching and rates it at mild to moderate/10. The pain is associated with eating. The pain is worsened by: eating. It is relieved by: nothing. Additional associated symptoms include: none. Past Medical History: Diagnosis Date Anxiety 05/2021 Arrhythmia PAC's not afib per patient Cardiac angina Depression Diabetes mellitus Type 2 Essential hypertension, benign GERD (gastroesophageal reflux disease) History of chicken pox History of kidney stones Hyperlipidemia Hypothyroidism Obesity Osteoarthritis Osteoarthritis Other sleep apnea Renal disease kidney stones Sinusitis Past Surgical History: Procedure Laterality Date CYSTOURETHROSCOPY W/ URETEROSCOPY/PYELOSCOPY DIAGNOSTIC Right 06/13/2021 Laterality: Right; Surgeon: Juan Dominique MD; Location: [facility] TONSILLECTOMY ADENOIDECTOMY 2011 Outpatient Medications Prior to Visit Medication Sig Dispense Refill Aspirin [address] tablet Take 1 tablet by mouth daily. Atenolol 50 MG tablet Take 1 tablet by mouth daily. 90 tablet 1 Cetirizine 10 MG tablet Take 1 tablet by mouth daily. 30 tablet 2 escitalopram 5 MG tablet Take 1 tablet by mouth daily. 90 tablet 1 fluticasone 50 MCG/ACT Suspension nasal spray 2 sprays by Nasal route daily. 16 g 1 Icosapent Ethyl (Vascepa) 1 g capsule Take 2 capsules by mouth 2 times daily. 360 capsule 1 Lantus SoloStar 100 UNIT/ML Solution Pen-injector injection Inject 20 Units under the skin Every evening as needed. 15 mL 0 levothyroxine 112 MCG tablet Take 1 tablet by mouth daily. 90 tablet 1 metFORMIN-XR 500 MG Tab SR 24 HR Take 2 tablets by mouth 2 times daily. 2 tablets bid 360 tablet 1 Misc. Devices Misc by Unknown route. APAP [id number] DME: [facility] setup 09/04/21, on airview multivitamin tablet Take 1 tablet by mouth daily. Pantoprazole (Protonix) [address] tablet DR Take 1 tablet by mouth daily. 30 tablet 1 Sucralfate 1 g tablet Take 1 tablet by mouth every 6 hours. 30 tablet 1 Tamsulosin HCl 0.4 MG capsule Take 1 capsule by mouth daily. 15 capsule 0 No facility-administered medications prior to visit. Allergies Allergen Reactions Bee Venom Swelling Pet Dander [*Animal Dander] Seasonal Social History Socioeconomic History Marital status: Single Spouse name: Not on file Number of children: Not on file Years of education: Not on file Highest education level: Not on file Occupational History Not on file Tobacco Use Smoking status: Never Smokeless tobacco: Never Vaping Use Vaping status: Never Used Substance and Sexual Activity Alcohol use: Not Currently Alcohol/week: 2.0 standard drinks of alcohol Types: 2 Standard drinks or equivalent per week Comment: Special Social Occasions only Drug use: Yes Sexual activity: Yes Partners: Male control/protection: Condom, Pill Other Topics Concern Service Not Asked Blood Transfusions Not Asked Caffeine Concern Not Asked Occupational Exposure No Hobby Hazards No Sleep Concern Not Asked Stress Concern Not Asked Weight Concern Not Asked Special Diet Not Asked Back Care Not Asked Exercise Not Asked Bike Helmet Not Asked Seat Belt Not Asked Domestic Violence No Social History Narrative Not on file Social Determinants of Health Financial Resource Strain: Not on file Food Insecurity: Not on file Transportation Needs: Not on file Physical Activity: Not on file Stress: Not on file Social Connections: Not on file Intimate Partner Violence: Not on file Housing Stability: Not on file Family History Problem Relation Age of Onset Diabetes Mother 12/01/22 Kidney Disease Mother Hypertension Mother Lipid Disorder Mother Sudden Cardiac Mother Passed 12/02/22 Heart Failure Father Heart Disease - Other Father CHF Hypertension Father Lipid Disorder Father Other - Specify Father Fainting Father Depression Father Diabetes Father Mental Illness Sister Lipid Disorder Brother Hypertension Brother Myocardial Infarction Brother Diabetes Brother GI Disease Maternal Grandmother Lung Cancer Maternal Grandfather Colorectal Cancer Maternal Grandfather GI Disease Maternal Grandfather Heart Disease - Other Paternal Grandmother Heart Disease - Other Paternal Grandfather Diabetes Brother Myocardial Infarction Brother STEMI 2021 Lipid Disorder Brother 2021 Mental Illness Sister schizophrenia; biploar Review of Systems Constitutional: Negative. HENT: Negative. Eyes: Negative. Respiratory: Negative. Cardiovascular: Negative. Gastrointestinal: otherwise Negative. Musculoskeletal: Negative. Skin: Negative. Allergic/Immunologic: Negative. Neurological: Negative. Hematological: Negative. Psychiatric/Behavioral: Negative Physical Exam BP 140/82 (BP Location: Right arm, BP Position: Sitting) Pulse 85 Ht 1.626 m (5' 4) Wt 131 kg (288 lb 12.8 oz) SpO2 95% BMI 49.57 kg/m Smoking Status Never Wt Readings from Last 3 Encounters: 03/04/24 131 kg (288 lb 12.8 oz) 02/24/24 127.9 kg (282 lb) 01/29/24 127.9 kg (282 lb) Body mass index is 49.57 kg/m . PHYSICAL EXAM VITAL SIGNS: BP 140/82 (BP Location: Right arm, BP Position: Sitting) Pulse 85 Ht 1.626 m (5' 4) Wt 131 kg (288 lb 12.8 oz) SpO2 95% BMI 49.57 kg/m Smoking Status Never Constitutional: Well developed, Well nourished, No acute distress, Non-toxic appearance. HENT: Normocephalic, Atraumatic, Oropharynx moist, Sclera anicteric, No oral exudates. Neck- No tenderness, Supple, No stridor. Eyes: Normal conjunctiva. Anicteric sclera. Respiratory: Normal breath sounds, No respiratory distress, No wheezing, No chest tenderness. Cardiovascular: Normal heart rate, Normal rhythm, No murmurs GI: Soft, No tenderness, No masses, No pulsatile masses. : No CVA tenderness Musculoskeletal: No deformity or tenderness in upper or lower extremities. Calves symmetric. No edema. Back- No tenderness. Integument: Warm, Dry, No rash. Lymphatic: No lymphadenopathy noted in neck or groin. Neurologic: Alert & oriented x 3, Normal motor function, Normal sensory function, No focal deficits noted. No meningismus. Psychiatric: Affect normal, Judgment normal, Mood normal. STUDIES: CT US Oswaldo was seen today for abdominal pain. Diagnoses and all orders for this visit: RUQ pain - NUC HEPATOBILIARY WITH EJECTION FRACTION; Future PLAN 1. Diagnostic testing: rev 2. Labs rev 3. No obvious findings on ct scan Will obtain a HIDA to r/o biliary dyskinesia or reproducible pain. This patient presented with a condition that required my immediate and ongoing attention. My presence and the care I provided were necessary to optimize the patients care in a situation that requireda higher level of complexity. Significant time was spent prior to the consultation reviewing all available pertinent imaging and labs followed by time spent during the patient encounter to come to a complete assessment and plan. This included time at the bedside with the patient, time reviewing themedical record to understand the patients underlying medical history, time ordering tests, reviewing and interpreting test results, and time spent in discussion with the patient, family, nursing, and consultants. The time included here does not include time spent with procedures [facility] Work Phone: [phone]) 454-350404-05-2024 History and physical note* Aaron Colbert DO - 03/04/2024 1:45 PM EDT CC: Chief Complaint Patient presents with Abdominal Pain HPI: She presents for evaluation of mild RUQ pain. Onset of symptoms was several months ago, clinical course intermittent since that time. She describes the pain as aching and rates it at mild to moderate/10. The pain is associated with eating. The pain is worsened by: eating. It is relieved by: nothing. Additional associated symptoms include: none. Past Medical History: Diagnosis Date Anxiety 05/2021 Arrhythmia PAC's not afib per patient Cardiac angina Depression Diabetes mellitus Type 2 Essential hypertension, benign GERD (gastroesophageal reflux disease) History of chicken pox History of kidney stones Hyperlipidemia Hypothyroidism Obesity Osteoarthritis Osteoarthritis Other sleep apnea Renal disease kidney stones Sinusitis Past Surgical History: Procedure Laterality Date CYSTOURETHROSCOPY W/ URETEROSCOPY/PYELOSCOPY DIAGNOSTIC Right 06/13/2021 Laterality: Right; Surgeon: Juan Dominique MD; Location: [facility] TONSILLECTOMY ADENOIDECTOMY 2011 Outpatient Medications Prior to Visit Medication Sig Dispense Refill Aspirin [address] tablet Take 1 tablet by mouth daily. Atenolol 50 MG tablet Take 1 tablet by mouth daily. 90 tablet 1 Cetirizine 10 MG tablet Take 1 tablet by mouth daily. 30 tablet 2 escitalopram 5 MG tablet Take 1 tablet by mouth daily. 90 tablet 1 fluticasone 50 MCG/ACT Suspension nasal spray 2 sprays by Nasal route daily. 16 g 1 Icosapent Ethyl (Vascepa) 1 g capsule Take 2 capsules by mouth 2 times daily. 360 capsule 1 Lantus SoloStar 100 UNIT/ML Solution Pen-injector injection Inject 20 Units under the skin Every evening as needed. 15 mL 0 levothyroxine 112 MCG tablet Take 1 tablet by mouth daily. 90 tablet 1 metFORMIN-XR 500 MG Tab SR 24 HR Take 2 tablets by mouth 2 times daily. 2 tablets bid 360 tablet 1 Misc. Devices Misc by Unknown route. APAP [id number] DME: [facility] setup 09/04/21, on airview multivitamin tablet Take 1 tablet by mouth daily. Pantoprazole (Protonix) [address] tablet DR Take 1 tablet by mouth daily. 30 tablet 1 Sucralfate 1 g tablet Take 1 tablet by mouth every 6 hours. 30 tablet 1 Tamsulosin HCl 0.4 MG capsule Take 1 capsule by mouth daily. 15 capsule 0 No facility-administered medications prior to visit. Allergies Allergen Reactions Bee Venom Swelling Pet Dander [*Animal Dander] Seasonal Social History Socioeconomic History Marital status: Single Spouse name: Not on file Number of children: Not on file Years of education: Not on file Highest education level: Not on file Occupational History Not on file Tobacco Use Smoking status: Never Smokeless tobacco: Never Vaping Use Vaping status: Never Used Substance and Sexual Activity Alcohol use: Not Currently Alcohol/week: 2.0 standard drinks of alcohol Types: 2 Standard drinks or equivalent per week Comment: Special Social Occasions only Drug use: Yes Sexual activity: Yes Partners: Male control/protection: Condom, Pill Other Topics Concern Service Not Asked Blood Transfusions Not Asked Caffeine Concern Not Asked Occupational Exposure No Hobby Hazards No Sleep Concern Not Asked Stress Concern Not Asked Weight Concern Not Asked Special Diet Not Asked Back Care Not Asked Exercise Not Asked Bike Helmet Not Asked Seat Belt Not Asked Domestic Violence No Social History Narrative Not on file Social Determinants of Health Financial Resource Strain: Not on file Food Insecurity: Not on file Transportation Needs: Not on file Physical Activity: Not on file Stress: Not on file Social Connections: Not on file Intimate Partner Violence: Not on file Housing Stability: Not on file Family History Problem Relation Age of Onset Diabetes Mother 12/01/22 Kidney Disease Mother Hypertension Mother Lipid Disorder Mother Sudden Cardiac Mother Passed 12/02/22 Heart Failure Father Heart Disease - Other Father CHF Hypertension Father Lipid Disorder Father Other - Specify Father Fainting Father Depression Father Diabetes Father Mental Illness Sister Lipid Disorder Brother Hypertension Brother Myocardial Infarction Brother Diabetes Brother GI Disease Maternal Grandmother Lung Cancer Maternal Grandfather Colorectal Cancer Maternal Grandfather GI Disease Maternal Grandfather Heart Disease - Other Paternal Grandmother Heart Disease - Other Paternal Grandfather Diabetes Brother Myocardial Infarction Brother STEMI 2021 Lipid Disorder Brother 2021 Mental Illness Sister schizophrenia; biploar Review of Systems Constitutional: Negative. HENT: Negative. Eyes: Negative. Respiratory: Negative. Cardiovascular: Negative. Gastrointestinal: otherwise Negative. Musculoskeletal: Negative. Skin: Negative. Allergic/Immunologic: Negative. Neurological: Negative. Hematological: Negative. Psychiatric/Behavioral: Negative Physical Exam BP 140/82 (BP Location: Right arm, BP Position: Sitting) Pulse 85 Ht 1.626 m (5' 4) Wt 131 kg (288 lb 12.8 oz) SpO2 95% BMI 49.57 kg/m Smoking Status Never Wt Readings from Last 3 Encounters: 03/04/24 131 kg (288 lb 12.8 oz) 02/24/24 127.9 kg (282 lb) 01/29/24 127.9 kg (282 lb) Body mass index is 49.57 kg/m . PHYSICAL EXAM VITAL SIGNS: BP 140/82 (BP Location: Right arm, BP Position: Sitting) Pulse 85 Ht 1.626 m (5' 4) Wt 131 kg (288 lb 12.8 oz) SpO2 95% BMI 49.57 kg/m Smoking Status Never Constitutional: Well developed, Well nourished, No acute distress, Non-toxic appearance. HENT: Normocephalic, Atraumatic, Oropharynx moist, Sclera anicteric, No oral exudates. Neck- No tenderness, Supple, No stridor. Eyes: Normal conjunctiva. Anicteric sclera. Respiratory: Normal breath sounds, No respiratory distress, No wheezing, No chest tenderness. Cardiovascular: Normal heart rate, Normal rhythm, No murmurs GI: Soft, No tenderness, No masses, No pulsatile masses. : No CVA tenderness Musculoskeletal: No deformity or tenderness in upper or lower extremities. Calves symmetric. No edema. Back- No tenderness. Integument: Warm, Dry, No rash. Lymphatic: No lymphadenopathy noted in neck or groin. Neurologic: Alert & oriented x 3, Normal motor function, Normal sensory function, No focal deficits noted. No meningismus. Psychiatric: Affect normal, Judgment normal, Mood normal. STUDIES: CT US Oswaldo was seen today for abdominal pain. Diagnoses and all orders for this visit: RUQ pain - NUC HEPATOBILIARY WITH EJECTION FRACTION; Future PLAN 1. Diagnostic testing: rev 2. Labs rev 3. No obvious findings on ct scan Will obtain a HIDA to r/o biliary dyskinesia or reproducible pain. This patient presented with a condition that required my immediate and ongoing attention. My presence and the care I provided were necessary to optimize the patients care in a situation that requireda higher level of complexity. Significant time was spent prior to the consultation reviewing all available pertinent imaging and labs followed by time spent during the patient encounter to come to a complete assessment and plan. This included time at the bedside with the patient, time reviewing themedical record to understand the patients underlying medical history, time ordering tests, reviewing and interpreting test results, and time spent in discussion with the patient, family, nursing, and consultants. The time included here does not include time spent with procedures [facility] History of Present illness Narrative* Sharonda Greysontamiko - 03/04/2024 1:45 PM EDT RUQ abdominal pain Went to ER on 01/17/24 Has kidney stones Had CT on 02/23 US on 02/06 Had GI panel done on 01/25 Has a little pain after she eats occasionally No pain daily [facility] History of Present illness Narrative* Elisabeth Gregg, MEMBER SERVICES COORDINATOR-VICE PRESIDENT [employer] - 02/24/2024 2:00 PM EDT Chief Complaint Patient presents with Follow-up Kidney stones HPI: 38 y.o. female known to the urology department for kidney stone management. Last stone treatment 05/2021; right URS for ureteral stone. That was her first stone episode. Pt was seen a few weeks ago as an ER follow up for right upper quadrant abdominal pain and right flank pain x 1 week. RUQ/Liver/GB US showed possible right renal stone; no hydronephrosis. RecommendedCT for further evaluation but pt declined as pain had resolved. Patient presents today with return of flank pain and episode of gross hematuria. She denies associated dysuria, vomiting, fever, or chills. ROS: Nurse Note: Review of Systems Constitutional: Negative. HENT: Negative. Eyes: Negative. Respiratory: Negative. Cardiovascular: Negative. Gastrointestinal: Negative. Endocrine: Negative. Genitourinary: Negative. Musculoskeletal: Negative. Skin: Negative. Allergic/Immunologic: Negative. Neurological: Negative. Hematological: Negative. Psychiatric/Behavioral: Negative. Nursing Assessment: Physical Exam Patient presents for a follow up for kidney stones Patient denies pain or discomfort at this time Patient states she has left flank pain rating it 5/10 Patient has no further questions or concerns at this time History Allergies Allergen Reactions Bee Venom Swelling Pet Dander [*Animal Dander] Seasonal has body mass index of 40.0-49.9; Kidney stone; Cervical dystonia; Cervical radiculopathy; Chronic left SI joint pain; Essential hypertension; Hypothyroidism (acquired); Pain in right knee; Pain of right shoulder region; Primary osteoarthritis of right shoulder; and Type 2 diabetes mellitus with hyp erglycemia (A1C > 6.49) on their problem list. Current Outpatient Medications Medication Sig Dispense Refill Aspirin [address] tablet Take 1 tablet by mouth daily. Atenolol 50 MG tablet Take 1 tablet by mouth daily. 90 tablet 1 Cetirizine 10 MG tablet Take 1 tablet by mouth daily. 30 tablet 2 escitalopram 5 MG tablet Take 1 tablet by mouth daily. 90 tablet 1 fluticasone 50 MCG/ACT Suspension nasal spray 2 sprays by Nasal route daily. 16 g 1 Icosapent Ethyl (Vascepa) 1 g capsule Take 2 capsules by mouth 2 times daily. 360 capsule 1 Lantus SoloStar 100 UNIT/ML Solution Pen-injector injection Inject 20 Units under the skin Every evening as needed. 15 mL 0 levothyroxine 112 MCG tablet Take 1 tablet by mouth daily. 90 tablet 1 metFORMIN-XR 500 MG Tab SR 24 HR Take 2 tablets by mouth 2 times daily. 2 tablets bid 360 tablet 1 Misc. Devices Misc by Unknown route. APAP [id number] DME: [facility] setup 09/04/21, on airview multivitamin tablet Take 1 tablet by mouth daily. Pantoprazole (Protonix) [address] tablet DR Take 1 tablet by mouth daily. 30 tablet 1 Sucralfate 1 g tablet Take 1 tablet by mouth every 6 hours. 30 tablet 1 No current facility-administered medications for this visit. family history includes Colorectal Cancer in her maternal grandfather; Depression in her father; Diabetes in her brother, brother, father, and mother; Fainting in her father; GI Disease in her maternal grandfather and maternal grandmother; Heart Disease - Other in her father, paternal grandfather, and paternal grandmother; Heart Failure in her father; Hypertension in her brother, father, and mother; Kidney Disease in her mother; Lipid Disorder in her brother, brother, father, and mother; Lung Cancer in her maternal grandfather; Mental Illness in her sister and sister; Myocardial Infarction inher brother and brother; Other - Specify in her father; Sudden Cardiac in her mother. Past Medical History: Diagnosis Date Anxiety 05/2021 Arrhythmia PAC's not afib per patient Cardiac angina Depression Diabetes mellitus Type 2 Essential hypertension, benign GERD (gastroesophageal reflux disease) History of chicken pox History of kidney stones Hyperlipidemia Hypothyroidism Obesity Osteoarthritis Osteoarthritis Other sleep apnea Renal disease kidney stones Sinusitis Past Surgical History: Procedure Laterality Date CYSTOURETHROSCOPY W/ URETEROSCOPY/PYELOSCOPY DIAGNOSTIC Right 06/13/2021 Laterality: Right; Surgeon: Juan Dominique MD; Location: [facility] OR TONSILLECTOMY ADENOIDECTOMY 2011 Social History Socioeconomic History Marital status: Single Spouse name: Not on file Number of children: Not on file Years of education: Not on file Highest education level: Not on file Occupational History Not on file Tobacco Use Smoking status: Never Smokeless tobacco: Never Vaping Use Vaping status: Never Used Substance and Sexual Activity Alcohol use: Not Currently Alcohol/week: 2.0 standard drinks of alcohol Types: 2 Standard drinks or equivalent per week Comment: Special Social Occasions only Drug use: Yes Sexual activity: Yes Partners: Male control/protection: Condom, Pill Other Topics Concern Service Not Asked Blood Transfusions Not Asked Caffeine Concern Not Asked Occupational Exposure No Hobby Hazards No Sleep Concern Not Asked Stress Concern Not Asked Weight Concern Not Asked Special Diet Not Asked Back Care Not Asked Exercise Not Asked Bike Helmet Not Asked Seat Belt Not Asked Domestic Violence No Social History Narrative Not on file Social Determinants of Health Financial Resource Strain: Not on file Food Insecurity: Not on file Transportation Needs: Not on file Physical Activity: Not on file Stress: Not on file Social Connections: Not on file Intimate Partner Violence: Not on file Housing Stability: Not on file Physical Exam: Resp 17 Ht 1.626 m (5' 4) Wt 127.9 kg (282 lb) BMI 48.41 kg/m Smoking Status Never Body mass index is 48.41 kg/m . Constitutional: Appears well, no acute distress. Cardiovascular: Regular rate and rhythm. No lower extremity edema. Pulmonary: Respirations even and unlabored. Lungs clear to auscultation. Abdomen: Soft, non-tender. Bowel sounds active x 4. No CVA/suprapubic tenderness noted. Musculoskeletal: All major joints are without swelling, erythema, or bony deformity. Normal range of motion of all major joints. Skin: Warm, dry and intact. Neuro: No sensory or motor deficits. Assessment/Plan: 1. Kidney stone Urinalysis - moderate blood. No evidence of infection. Renal ultrasound demonstrated non-obstructing right renal stone. CT stone study ordered for further evaluation given return of symptoms. Follow up in 2 weeks to review results and discuss plan of care. Indications for seeking ER evaluation discu ssed with the patient. - POCT URINALYSIS DIPSTICK AUTOMATED W/O SCOP Patient was advised to call with any questions or concerns. If symptoms worsen patient was advised to follow up in our office or the Emergency Dept. Benefits, Risks, Contraindications, and Complications of recommended treatments were explained the patient understands and agrees to proceed with plan. * Lidia Mancilla - 02/24/2024 2:00 PM EDT Nurse Note: Review of Systems Constitutional: Negative. HENT: Negative. Eyes: Negative. Respiratory: Negative. Cardiovascular: Negative. Gastrointestinal: Negative. Endocrine: Negative. Genitourinary: Negative. Musculoskeletal: Negative. Skin: Negative. Allergic/Immunologic: Negative. Neurological: Negative. Hematological: Negative. Psychiatric/Behavioral: Negative. Nursing Assessment: Physical Exam Patient presents for a follow up for kidney stones Patient denies pain or discomfort at this time Patient states she has left flank pain rating it 5/10 Patient has no further questions or concerns at this time documented in this [facility]03-06-[facility] History of Present illness Narrative* Antwon Martin CNP - 02/03/2024 3:15 PM EST 02/01/24 Oswaldo Morel 1985 No chief complaint on file. HISTORY of Present Illness: Oswaldo Morel is a 38 y.o. year old female that presents today with No chief complaint on file. . Oswaldo Morel has had injections in the past. Last injection to right knee and right shoulder was over 3 months ago and they tolerated well. They have been treated w/ oral medications & injections. Patient denies new injury to the knees or shoulder. The following portions of the patient's history were reviewed and updated as appropriate: allergies, current medications, past surgical history and problem list Assessment No documentation. Referred By: No ref. provider found PAST MEDICAL HISTORY The patient's Medications, Allergies, Past Surgical History, Medical History, Family History and Social History were reviewed and can be found in their online medical record, and I have reviewed thisinformation with Oswaldo Morel at the time of their visit. They are significant for Past Medical History: Diagnosis Date Atrial fibrillation (HCC) Disease of thyroid gland Hypertension Osteoarthritis osteoarthritis PHYSICAL EXAM Ortho Exam Additional Notes: IMAGING Notes: none new today. Reviewed from last visit. IMPRESSION And PLAN: Cortisone injection today. Will follow up in 3 months if effective. Call if no improvement in 10 days. 1. Acute pain of right shoulder 2. Primary osteoarthritis of right shoulder 3. Primary osteoarthritis of right knee Antwon Martin CNP * Antwon Martin CNP - 02/03/2024 3:15 PM ESTAssociated Order(s): LG Jt Injection/Arthrocentesis: R subacromial bursa Post-Procedure Diagnose(s): Acute pain of right shoulder LG Jt Injection/Arthrocentesis: R subacromial bursa Performed by: Antwon Martin CNP Authorized by: Antwon Martin CNP CPT 24575 - Large Joint Arthrocentesis: Consent given by: Patient Time out: Immediately prior to the procedure a time out was called Physician or proceduralist has discussed critical or nonroutine steps, procedure duration and anticipated blood loss: Yes Supporting Documentation: Indications: Pain Procedure Details: Location: Shoulder Site: R subacromial bursa Prep: patient was prepped and draped in usual sterile fashion Needle size: 22 G Approach: Posterior Medications: 1 mL dexAMETHasone 4 mg/mL, 1 mL triamcinolone acetonide 40 mg/mL Anesthetic used: Bupivacaine 0.25% Anesthetic amount (mL): 3 Patient tolerance: Patient tolerated the procedure well with no immediate complications documented in this [id number] History of Present illness Narrative* VIKRAM Cabrera - 01/29/2024 2:30 PM EST Chief Complaint Patient presents with Follow-up Kidney stone HPI: 38 y.o. female known to the urology department for kidney stone management. Last stone treatment 05/2021; right URS for ureteral stone. That was her first stone episode. Pt was seen in the ER 01/17/24 with complaints of right upper quadrant abdominal pain and right flank pain x 1 week. RUQ/Liver/GB US showed possible right renal stone; no hydronephrosis. Pain has since resolved. ER notes, labs, and images reviewed. HgbA1c 8.7 (10/2023) Creatinine 0.65 (12/2023) ROS: Nurse Note: Review of Systems Constitutional: Negative. HENT: Negative. Eyes: Negative. Respiratory: Negative. Cardiovascular: Negative. Gastrointestinal: Negative. Endocrine: Negative. Genitourinary: Negative. Musculoskeletal: Negative. Skin: Negative. Allergic/Immunologic: Negative. Neurological: Negative. Hematological: Negative. Psychiatric/Behavioral: Negative. Nursing Assessment: Physical Exam Patient presents as a follow up for kidney stones Patient denies pain or discomfort at this time Patient states it feels as if she has passed a stone at this time and pain is subsiding. Patient denies any urinary issues whatsoever Lab Results Component Value Date APPEARANCE clear 01/29/2024 COLOR yellow 01/29/2024 SPECIFICGRAV 1.015 01/29/2024 BLOOD small 01/29/2024 PH 6.5 01/29/2024 PROTEIN neg 01/29/2024 UROBILINOGEN 0.2 01/29/2024 NITRITE neg 01/29/2024 LEUKOCYTE small 01/29/2024 LEUKOCESTUR NEGATIVE 05/31/2021 History Allergies Allergen Reactions Bee Venom Swelling Pet Dander [*Animal Dander] Seasonal has body mass index of 40.0-49.9; Kidney stone; Cervical dystonia; Cervical radiculopathy; Chronic left SI joint pain; Essential hypertension; Hypothyroidism (acquired); Pain in right knee; Pain of right shoulder region; and Primary osteoarthritis of right shoulder on their problem list. Current Outpatient Medications Medication Sig Dispense Refill Aspirin [address] tablet Take 1 tablet by mouth daily. Atenolol 50 MG tablet Take 1 tablet by mouth daily. 90 tablet 1 Cetirizine 10 MG tablet Take 1 tablet by mouth daily. 30 tablet 2 escitalopram 5 MG tablet Take 1 tablet by mouth daily. 90 tablet 1 fluticasone 50 MCG/ACT Suspension nasal spray 2 sprays by Nasal route daily. 16 g 1 Icosapent Ethyl (Vascepa) 1 g capsule Take 2 capsules by mouth 2 times daily. 360 capsule 1 Lantus SoloStar 100 UNIT/ML Solution Pen-injector injection Inject 20 Units under the skin Every evening as needed. 15 mL 0 levothyroxine 112 MCG tablet Take 1 tablet by mouth daily. 90 tablet 1 metFORMIN-XR 500 MG Tab SR 24 HR Take 2 tablets by mouth 2 times daily. 2 tablets bid 360 tablet 1 Misc. Devices Misc by Unknown route. APAP [id number] DME: [facility] setup 09/04/21, on airview multivitamin tablet Take 1 tablet by mouth daily. Pantoprazole (Protonix) [address] tablet DR Take 1 tablet by mouth daily. 30 tablet 1 Sucralfate 1 g tablet Take 1 tablet by mouth every 6 hours. 30 tablet 1 No current facility-administered medications for this visit. family history includes Colorectal Cancer in her maternal grandfather; Depression in her father; Diabetes in her brother, brother, father, and mother; Fainting in her father; GI Disease in her maternal grandfather and maternal grandmother; Heart Disease - Other in her father, paternal grandfather, and paternal grandmother; Heart Failure in her father; Hypertension in her brother, father, and mother; Kidney Disease in her mother; Lipid Disorder in her brother, brother, father, and mother; Lung Cancer in her maternal grandfather; Mental Illness in her sister and sister; Myocardial Infarction inher brother and brother; Other - Specify in her father; Sudden Cardiac in her mother. Past Medical History: Diagnosis Date Anxiety 05/2021 Arrhythmia PAC's not afib per patient Cardiac angina Depression Diabetes mellitus Type 2 Essential hypertension, benign GERD (gastroesophageal reflux disease) History of chicken pox History of kidney stones Hyperlipidemia Hypothyroidism Obesity Osteoarthritis Osteoarthritis Other sleep apnea Renal disease kidney stones Sinusitis Past Surgical History: Procedure Laterality Date CYSTOURETHROSCOPY W/ URETEROSCOPY/PYELOSCOPY DIAGNOSTIC Right 06/13/2021 Laterality: Right; Surgeon: Juan Dominique MD; Location: [facility] OR TONSILLECTOMY ADENOIDECTOMY 2011 Social History Socioeconomic History Marital status: Single Spouse name: Not on file Number of children: Not on file Years of education: Not on file Highest education level: Not on file Occupational History Not on file Tobacco Use Smoking status: Never Smokeless tobacco: Never Vaping Use Vaping status: Never Used Substance and Sexual Activity Alcohol use: Not Currently Alcohol/week: 2.0 standard drinks of alcohol Types: 2 Standard drinks or equivalent per week Comment: Special Social Occasions only Drug use: Yes Sexual activity: Yes Partners: Male control/protection: Condom, Pill Other Topics Concern Service Not Asked Blood Transfusions Not Asked Caffeine Concern Not Asked Occupational Exposure No Hobby Hazards No Sleep Concern Not Asked Stress Concern Not Asked Weight Concern Not Asked Special Diet Not Asked Back Care Not Asked Exercise Not Asked Bike Helmet Not Asked Seat Belt Not Asked Domestic Violence No Social History Narrative Not on file Social Determinants of Health Financial Resource Strain: Not on file Food Insecurity: Not on file Transportation Needs: Not on file Physical Activity: Not on file Stress: Not on file Social Connections: Not on file Intimate Partner Violence: Not on file Housing Stability: Not on file Physical Exam: Resp 16 Ht 1.626 m (5' 4) Wt 127.9 kg (282 lb) BMI 48.41 kg/m Smoking Status Never Body mass index is 48.41 kg/m . Constitutional: Appears well, no acute distress. Cardiovascular: Regular rate and rhythm. No lower extremity edema. Pulmonary: Respirations even and unlabored. Lungs clear to auscultation. Abdomen: Soft, non-tender. Bowel sounds active x 4. No CVA/suprapubic tenderness noted. Musculoskeletal: All major joints are without swelling, erythema, or bony deformity. Normal range of motion of all major joints. Skin: Warm, dry and intact. Neuro: No sensory or motor deficits. Assessment/Plan: 1. Kidney stone Urinalysis negative- small blood, small leukocytes. Just completed menses, no UTI symptoms. No calculi noted on KUB. We discussed CT for evaluation of current stone burden but she declined. No pain or issues currently. Continue stone prevention measures. Renal ultrasound in 1 year for stone surveillance. Encouraged to return sooner for new or worsening symptoms. - POCT URINALYSIS DIPSTICK AUTOMATED W/O SCOP Patient was advised to call with any questions or concerns. If symptoms worsen patient was advised to follow up in our office or the Emergency Dept. Benefits, Risks, Contraindications, and Complications of recommended treatments were explained the patient understands and agrees to proceed with plan. * Lidia Mancilla - 01/29/2024 2:30 PM EST Nurse Note: Review of Systems Constitutional: Negative. HENT: Negative. Eyes: Negative. Respiratory: Negative. Cardiovascular: Negative. Gastrointestinal: Negative. Endocrine: Negative. Genitourinary: Negative. Musculoskeletal: Negative. Skin: Negative. Allergic/Immunologic: Negative. Neurological: Negative. Hematological: Negative. Psychiatric/Behavioral: Negative. Nursing Assessment: Physical Exam Patient presents as a follow up for kidney stones Patient denies pain or discomfort at this time Patient states it feels as if she has passed a stone at this time and pain is subsiding. Patient denies any urinary issues whatsoever Lab Results Component Value Date APPEARANCE clear 01/29/2024 COLOR yellow 01/29/2024 SPECIFICGRAV 1.015 01/29/2024 BLOOD small 01/29/2024 PH 6.5 01/29/2024 PROTEIN neg 01/29/2024 UROBILINOGEN 0.2 01/29/2024 NITRITE neg 01/29/2024 LEUKOCYTE small 01/29/2024 LEUKOCESTUR NEGATIVE 05/31/2021 documented in this [facility]02-22-2024 History of Present illness Narrative* Jose Alberto Israel - 01/21/2024 3:40 PM EST HISTORY OF PRESENT ILLNESS- Oswaldo Morel is a 38 y.o. female who comes in with the following complaint(s): Chronic sinusitis, unspecified location Sinuses are doing better. Still congested but not as bad. * Robson Genao MD - 01/21/2024 3:40 PM EST ENT History & Physical Chief Complaint: Follow-up (Chronic sinusitis, unspecified location/) Interval History: 01/21/24: Patient returns for follow-up of chronic nasal congestion. Previously treated for rhinitismedicamentosa. She notes improvement in her nasal congestion and aural fullness, but still persistent despite daily Flonase and Zyrtec for the past month. HPI: Oswaldo Morel is a 38 y.o. female who presents with chronic nasal congestion, facial and aural fullness. She has longstanding history of allergies but this past winter had a bad cold/sinus infection which caused exacerbation of all her symptoms. She has been using pseudoephedrine daily for almost 3 weeks and feels her symptoms worsen when she doesn't take it. She takes mucinex daily. No prior nasal surgery or trauma. The following areas of the chart have been personally reviewed: Tobacco Allergies Meds Problems Med Hx Surg Hx Fam Hx Review of Systems: General: Negative Eyes: Negative ENT: Per HPI Heart: Negative Respiratory: Negative GI: Negative : Negative Skin: Negative Neuro: Negative Psych: Negative Endocrine: Negative Heme/lymph: Negative Past Medical History: Past Medical History: Diagnosis Date Anxiety 05/2021 Arrhythmia PAC's not afib per patient Cardiac angina Depression Diabetes mellitus Type 2 Essential hypertension, benign GERD (gastroesophageal reflux disease) History of chicken pox History of kidney stones Hyperlipidemia Hypothyroidism Obesity Osteoarthritis Osteoarthritis Other sleep apnea Renal disease kidney stones Sinusitis Past Surgical History: Past Surgical History: Procedure Laterality Date CYSTOURETHROSCOPY W/ URETEROSCOPY/PYELOSCOPY DIAGNOSTIC Right 06/13/2021 Laterality: Right; Surgeon: Juan Dominique MD; Location: [facility] OR TONSILLECTOMY ADENOIDECTOMY 2011 Medications: Current Outpatient Medications Medication Sig Aspirin [address] tablet Take 1 tablet by mouth daily. Atenolol 50 MG tablet Take 1 tablet by mouth daily. Cetirizine 10 MG tablet Take 1 tablet by mouth daily. escitalopram 5 MG tablet Take 1 tablet by mouth daily. fluticasone 50 MCG/ACT Suspension nasal spray 2 sprays by Nasal route daily. Icosapent Ethyl (Vascepa) 1 g capsule Take 2 capsules by mouth 2 times daily. Lantus SoloStar 100 UNIT/ML Solution Pen-injector injection Inject 20 Units under the skin Every evening as needed. levothyroxine 112 MCG tablet Take 1 tablet by mouth daily. metFORMIN-XR 500 MG Tab SR 24 HR Take 2 tablets by mouth 2 times daily. 2 tablets bid Misc. Devices Misc by Unknown route. APAP [id number] DME: [facility] setup 09/04/21, on airview multivitamin tablet Take 1 tablet by mouth daily. Pantoprazole (Protonix) [address] tablet DR Take 1 tablet by mouth daily. Sucralfate 1 g tablet Take 1 tablet by mouth every 6 hours. Allergies: Allergies Allergen Reactions Bee Venom Swelling Pet Dander [*Animal Dander] Seasonal Family History: Family History Problem Relation Age of Onset Diabetes Mother 12/01/22 Kidney Disease Mother Hypertension Mother Lipid Disorder Mother Sudden Cardiac Mother Passed 12/02/22 Heart Failure Father Heart Disease - Other Father CHF Hypertension Father Lipid Disorder Father Other - Specify Father Fainting Father Depression Father Diabetes Father Mental Illness Sister Lipid Disorder Brother Hypertension Brother Myocardial Infarction Brother Diabetes Brother GI Disease Maternal Grandmother Lung Cancer Maternal Grandfather Colorectal Cancer Maternal Grandfather GI Disease Maternal Grandfather Heart Disease - Other Paternal Grandmother Heart Disease - Other Paternal Grandfather Diabetes Brother Myocardial Infarction Brother STEMI 2021 Lipid Disorder Brother 2021 Mental Illness Sister schizophrenia; biploar Social History: Social History Tobacco Use Smoking status: Never Smokeless tobacco: Never Vaping Use Vaping status: Never Used Substance Use Topics Alcohol use: Not Currently Alcohol/week: 2.0 standard drinks of alcohol Types: 2 Standard drinks or equivalent per week Comment: Special Social Occasions only Drug use: Yes Objective: Vitals: 01/21/24 1520 Temp: 98.3 F (36.8 C) General: No acute distress Head: Normocephalic, atraumatic Face: Bilateral symmetric movement, sensation intact Eyes: Extraocular movements intact, no scleral icterus Ears: No external deformity, examined under binocular otomicroscopy LEFT ear canal patent, tympanic membrane mildly retracted, pearly quintanilla, and mobile without fluid orinfection RIGHT ear canal patent, tympanic membrane mildly retracted, pearly quintanilla, and mobile without fluid or infection Nose: Bilateral severe turbinate hypertrophy, moderately deviated nasal septum; narrow internal nasal valve improved with modified Hardee maneuver in the bilateral jordy/rim region; of note, she hasa piercing in her left ala Mouth: Moist mucous membranes, no lesions Neck: Supple, nontender, no lymphadenopathy Cardiovascular: Intact peripheral perfusion Pulmonary: Equal chest rise, nonlabored respirations, no stridor Skin: Warm and dry, no lesions of the head and neck Neuro: Alert and oriented, no cranial nerve deficits Psych: Normal affect Rigid nasal endoscopy findings (for procedure details, see separately dictated procedure note): Right: Nasal cavity obstruction with severe turbinate hypertrophy, no pus, no polyps, no masses Left: Nasal cavity obstruction with severe turbinate hypertrophy, no pus, no polyps, no masses Nasopharynx: Clear Septum: Moderately deviated to the right anteriorly, to the left posteriorly causing 80% nasal obstruction Nasal Valve: Narrow internal nasal valve improved with modified Hardee maneuver in the bilateral jordy/rim region Assessment and Plan: Oswaldo was seen today for follow-up. Diagnoses and all orders for this visit: Nasal congestion - RI NASAL ENDOSCOPY,DX Nasal turbinate hypertrophy Deviated nasal septum - RI NASAL ENDOSCOPY,DX Nasal valve collapse Post-nasal drip Otalgia of both ears - RI EAR MICROSCOPY EXAMINATION Dysfunction of both eustachian tubes - RI EAR MICROSCOPY EXAMINATION Allergic rhinitis due to dust -- Rhinitis medicamentosa resolved -- Patient has multifactorial nasal airway obstruction with structural abnormalities and has failedmedical therapy. -- Recommend surgical intervention with septoplasty, turbinate reduction, and internal nasal valve repair with structural grafting in the rim/jordy region. Of note, she has a piercing in her left ala. Discussed risks of surgery including pain, bleeding, infection, scarring, failure to achieve desired result, need for additional procedures, inability to resolve complications, risks of anesthesia,septal perforation, external fullness of the nose (if jordy grafts are placed). Discussed alternatives including no surgery. The goal of surgery would be to improve the nasal airway without gross changes in the external appearance of the nose. Could consider left eustachian tube balloon dilation concurrently if desired, as her ETD is not resolved with medical treatment. -- Patient is currently undergoing workup for cholecystitis and prefers to wait on the decision fornasal surgery until after this is resolved; she will call my office if desiring to discuss surgery further. She will need pictures for the nasal valve repair. -- Continue Flonase and Zyrtec indefinitely for severe nasal allergies -- RTC PRN Robson Genao MD documented in this [facility]02-22-2024 NoteRobson Genao MD 01/21/2024 3:59 PM Procedure: Binocular otomicroscopy (CPT 50296) Performed by: Robson Genao MD Pre-procedure diagnosis: otalgia and eustachian tube dysfunction Post-procedure diagnosis: Same Description: After obtaining verbal informed consent, the patient was positioned seated upright. The binocular microscope and a disposable otic speculum were used to examine the bilateral ears. Obstructive cerumen was removed with a combination of cerumen loops and suction. The findings are as described below. The speculum was removed. The patient tolerated the procedure well and I performed the procedure myself. Findings: LEFT ear canal patent, tympanic membrane mildly retracted, pearly quintanilla, and without effusion RIGHT ear canal patent, tympanic membrane mildly retracted, pearly quintanilla, and without effusion Procedure: Rigid nasal endoscopy (CPT 98198) Performed by: Robson Genao MD Pre-procedure diagnosis: Nasal congestion not able to visualize posteriorly Post-procedure diagnosis: Same Description: After obtaining informed consent, the patient was positioned seated upright. The 0-degree rigid nasal endoscope was inserted in a two-pass maneuver into the right nasal cavity and then the left. The findings are as described below. The scope was removed. The patient tolerated the procedure well and I performed the procedure myself. Findings: Right: Nasal cavity obstruction with severe turbinate hypertrophy, no pus, no polyps, no masses Left: Nasal cavity obstruction with severe turbinate hypertrophy, no pus, no polyps, no masses Nasopharynx: Clear Septum: Moderately deviated to the right anteriorly, to the left posteriorly causing 80% nasal obstruction Nasal Valve: Narrow internal nasal valve improved with modified Katlin maneuver in the bilateral [facility]02-22-2024 NoteRobsno Genao MD 01/21/2024 3:59 PM Procedure: Binocular otomicroscopy (CPT 99754) Performed by: Robson Genao MD Pre-procedure diagnosis: otalgia and eustachian tube dysfunction Post-procedure diagnosis: Same Description: After obtaining verbal informed consent, the patient was positioned seated upright. The binocular microscope and a disposable otic speculum were used to examine the bilateral ears. Obstructive cerumen was removed with a combination of cerumen loops and suction. The findings are as described below. The speculum was removed. The patient tolerated the procedure well and I performed the procedure myself. Findings: LEFT ear canal patent, tympanic membrane mildly retracted, pearly quintanilla, and without effusion RIGHT ear canal patent, tympanic membrane mildly retracted, pearly quintanilla, and without effusion Procedure: Rigid nasal endoscopy (CPT 46138) Performed by: Robson Genao MD Pre-procedure diagnosis: Nasal congestion not able to visualize posteriorly Post-procedure diagnosis: Same Description: After obtaining informed consent, the patient was positioned seated upright. The 0-degree rigid nasal endoscope was inserted in a two-pass maneuver into the right nasal cavity and then the left. The findings are as described below. The scope was removed. The patient tolerated the procedure well and I performed the procedure myself. Findings: Right: Nasal cavity obstruction with severe turbinate hypertrophy, no pus, no polyps, no masses Left: Nasal cavity obstruction with severe turbinate hypertrophy, no pus, no polyps, no masses Nasopharynx: Clear Septum: Moderately deviated to the right anteriorly, to the left posteriorly causing 80% nasal obstruction Nasal Valve: Narrow internal nasal valve improved with modified Hardee maneuver in the bilateral [facility]02-22-2024 Procedure note* Robson Genao MD - 01/21/2024 3:40 PM ESTAssociated Order(s): RI NASAL ENDOSCOPY,DX; RI EAR MICROSCOPY EXAMINATION Procedure: Binocular otomicroscopy (CPT 87866) Performed by: Robson Genao MD Pre-procedure diagnosis: otalgia and eustachian tube dysfunction Post-procedure diagnosis: Same Description: After obtaining verbal informed consent, the patient was positioned seated upright. The binocular microscope and a disposable otic speculum were used to examine the bilateral ears. Obstructive cerumen was removed with a combination of cerumen loops and suction. The findings are as described below. The speculum was removed. The patient tolerated the procedure well and I performed the procedure myself. Findings: LEFT ear canal patent, tympanic membrane mildly retracted, pearly quintanilla, and without effusion RIGHT ear canal patent, tympanic membrane mildly retracted, pearly quintanilla, and without effusion Procedure: Rigid nasal endoscopy (CPT 21773) Performed by: Robson Genao MD Pre-procedure diagnosis: Nasal congestion not able to visualize posteriorly Post-procedure diagnosis: Same Description: After obtaining informed consent, the patient was positioned seated upright. The 0-degree rigid nasal endoscope was inserted in a two-pass maneuver into the right nasal cavity and then the left. The findings are as described below. The scope was removed. The patient tolerated the procedure well and I performed the procedure myself. Findings: Right: Nasal cavity obstruction with severe turbinate hypertrophy, no pus, no polyps, no masses Left: Nasal cavity obstruction with severe turbinate hypertrophy, no pus, no polyps, no masses Nasopharynx: Clear Septum: Moderately deviated to the right anteriorly, to the left posteriorly causing 80% nasal obstruction Nasal Valve: Narrow internal nasal valve improved with modified Hardee maneuver in the bilateral jordy/rim region [facility]02-22-2024 Procedure note* Robson Genao MD - 01/21/2024 3:40 PM ESTAssociated Order(s): RI NASAL ENDOSCOPY,DX; RI EAR MICROSCOPY EXAMINATION Procedure: Binocular otomicroscopy (CPT 18149) Performed by: Robson Genao MD Pre-procedure diagnosis: otalgia and eustachian tube dysfunction Post-procedure diagnosis: Same Description: After obtaining verbal informed consent, the patient was positioned seated upright. The binocular microscope and a disposable otic speculum were used to examine the bilateral ears. Obstructive cerumen was removed with a combination of cerumen loops and suction. The findings are as described below. The speculum was removed. The patient tolerated the procedure well and I performed the procedure myself. Findings: LEFT ear canal patent, tympanic membrane mildly retracted, pearly quintanilla, and without effusion RIGHT ear canal patent, tympanic membrane mildly retracted, pearly quintanilla, and without effusion Procedure: Rigid nasal endoscopy (CPT 15542) Performed by: Robson Genao MD Pre-procedure diagnosis: Nasal congestion not able to visualize posteriorly Post-procedure diagnosis: Same Description: After obtaining informed consent, the patient was positioned seated upright. The 0-degree rigid nasal endoscope was inserted in a two-pass maneuver into the right nasal cavity and then the left. The findings are as described below. The scope was removed. The patient tolerated the procedure well and I performed the procedure myself. Findings: Right: Nasal cavity obstruction with severe turbinate hypertrophy, no pus, no polyps, no masses Left: Nasal cavity obstruction with severe turbinate hypertrophy, no pus, no polyps, no masses Nasopharynx: Clear Septum: Moderately deviated to the right anteriorly, to the left posteriorly causing 80% nasal obstruction Nasal Valve: Narrow internal nasal valve improved with modified Hardee maneuver in the bilateral jordy/rim region documented in this [facility]02-22-2024 History of Present illness Narrative* Francoise Hicks - 01/21/2024 2:00 PM EST ABDOMINAL PAIN- Onset- 1 week Location - RUQ Pain with urination- No Constipation- No Has there been similar problems in the past -No Associated sx- Fever - Yes Stool with mucus or bloody - No Vomiting blood - No Nausea, Vomiting, or Diarrhea - Yes - nausea, vomiting and diarrhea Treatments tried/effectiveness - aleve; tylonel; toradol IV in ER Additional comments: pain radiating to back and up to right shoulder; feels like vomiting after eating; gets dull pains after eating; pt C/O nausea; pt states stool is pale and loose * Carmen Mckeon PA-C - 01/21/2024 2:00 PM EST ABDOMINAL PAIN- Onset- 1 week Location - RUQ Pain with urination- No Constipation- No Has there been similar problems in the past -No Associated sx- Fever - Yes Stool with mucus or bloody - No Vomiting blood - No Nausea, Vomiting, or Diarrhea - Yes - nausea, vomiting and diarrhea Treatments tried/effectiveness - aleve; tylonel; toradol IV in ER Additional comments: pain radiating to back and up to right shoulder; feels like vomiting after eating; gets dull pains after eating; pt C/O nausea; pt states stool is pale and loose Review of Systems Constitutional: Negative for fatigue and fever. HENT: Negative for ear pain and sinus pain. Eyes: Negative for visual disturbance. Respiratory: Negative for cough and shortness of breath. Cardiovascular: Negative for chest pain, palpitations and leg swelling. Gastrointestinal: Positive for abdominal pain (RUQ, worse after eating). Negative for diarrhea, nausea and vomiting. Genitourinary: Negative for dysuria and frequency. Musculoskeletal: Negative for myalgias. Skin: Negative for rash. Neurological: Negative for weakness, numbness and headaches. Psychiatric/Behavioral: Negative for confusion. Objective: Blood pressure (!) 125/97, pulse 72, SpO2 98%, not currently . Physical Exam Vitals and nursing note reviewed. Constitutional: General: She is not in acute distress. HENT: Head: Normocephalic and atraumatic. Eyes: Extraocular Movements: Extraocular movements intact. Pupils: Pupils are equal, round, and reactive to light. Cardiovascular: Rate and Rhythm: Normal rate and regular rhythm. Pulses: Normal pulses. Heart sounds: No murmur heard. No gallop. Pulmonary: Effort: Pulmonary effort is normal. No respiratory distress. Breath sounds: No wheezing or rhonchi. Abdominal: General: There is no distension. Palpations: There is no mass. Tenderness: There is abdominal tenderness (RUQ). There is no right CVA tenderness, left CVA tenderness, guarding or rebound. Hernia: No hernia is present. Musculoskeletal: Right lower leg: No edema. Left lower leg: No edema. Skin: General: Skin is warm and dry. Capillary Refill: Capillary refill takes less than 2 seconds. Findings: No rash. Neurological: Mental Status: She is alert and oriented to person, place, and time. Psychiatric: Mood and Affect: Mood normal. Thought Content: Thought content normal. Assessment and Plan: Discussed this could be gallbladder related versus bile duct related versus gastritis/ulcer. We will repeat the right upper quadrant ultrasound as the gallbladder and biliary tree were not visualizedand the gallbladder was contracted. Discussed this could still be an ulcer or gastritis as well. Dis cussed red flag signs and symptoms that would warrant immediate medical attention, patient (and/or guardian) voiced understanding. 1. RUQ abdominal pain - Pantoprazole (Protonix) [address] tablet DR; Take 1 tablet by mouth daily. Dispense: 30 tablet; Refill: 1 - Sucralfate 1 g tablet; Take 1 tablet by mouth every 6 hours. Dispense: 30 tablet; Refill: 1 - US ABDOMEN RUQ/LIVER/GB; Future 2. Diarrhea, unspecified type - GI PANEL,PCR; Future Carmen Mckeon PA-C 01/21/2024 [facility] History of Present illness Narrative* Lidiavalentin Reagan, MEMBER SERVICES COORDINATOR-VICE PRESIDENT [employer] - 01/17/2024 10:55 AM EST Images from the original note were not included. HPI Oswaldo Morel female 1985 presents to the [facility] with Chief Complaint Patient presents with Urinary Frequency Pt c/o urinary frequency and lower back/right Flank area. Patient presents with discomfort to right flank area that radiates to right upper outer quadrant ofabdomen. States his pain has been constant for the past week she feels it has gotten worse over time. States she thinks sitting down makes the pain worse and it does become worsen cause acid reflux after eating. She does still have her gallbladder. Denies any nausea vomiting or diarrhea. Denies anyinjury. Denies any urinary symptoms. Denies any chest pain or shortness a breath History Allergies Allergen Reactions Bee Venom Swelling Pet Dander [*Animal Dander] Seasonal Current Outpatient Medications Medication Sig Aspirin [address] tablet Take 1 tablet by mouth daily. Atenolol 50 MG tablet Take 1 tablet by mouth daily. Cetirizine 10 MG tablet Take 1 tablet by mouth daily. escitalopram 5 MG tablet Take 1 tablet by mouth daily. fluticasone 50 MCG/ACT Suspension nasal spray 2 sprays by Nasal route daily. Icosapent Ethyl (Vascepa) 1 g capsule Take 2 capsules by mouth 2 times daily. Lantus SoloStar 100 UNIT/ML Solution Pen-injector injection Inject 20 Units under the skin Every evening as needed. levothyroxine 112 MCG tablet Take 1 tablet by mouth daily. metFORMIN-XR 500 MG Tab SR 24 HR Take 2 tablets by mouth 2 times daily. 2 tablets bid Misc. Devices Misc by Unknown route. APAP [id number] DME: [facility] setup 09/04/21, on airview multivitamin tablet Take 1 tablet by mouth daily. Family History Problem Relation Age of Onset Diabetes Mother 12/01/22 Kidney Disease Mother Hypertension Mother Lipid Disorder Mother Sudden Cardiac Mother Passed 12/02/22 Heart Failure Father Heart Disease - Other Father CHF Hypertension Father Lipid Disorder Father Other - Specify Father Fainting Father Depression Father Diabetes Father Mental Illness Sister Lipid Disorder Brother Hypertension Brother Myocardial Infarction Brother Diabetes Brother GI Disease Maternal Grandmother Lung Cancer Maternal Grandfather Colorectal Cancer Maternal Grandfather GI Disease Maternal Grandfather Heart Disease - Other Paternal Grandmother Heart Disease - Other Paternal Grandfather Diabetes Brother Myocardial Infarction Brother STEMI 2021 Lipid Disorder Brother 2021 Mental Illness Sister schizophrenia; biploar Past Medical History: Diagnosis Date Anxiety 05/2021 Arrhythmia PAC's not afib per patient Cardiac angina Depression Diabetes mellitus Type 2 Essential hypertension, benign GERD (gastroesophageal reflux disease) History of chicken pox History of kidney stones Hyperlipidemia Hypothyroidism Obesity Osteoarthritis Osteoarthritis Other sleep apnea Renal disease kidney stones Sinusitis Past Surgical History: Procedure Laterality Date CYSTOURETHROSCOPY W/ URETEROSCOPY/PYELOSCOPY DIAGNOSTIC Right 06/13/2021 Laterality: Right; Surgeon: Juan Dominique MD; Location: [facility] OR TONSILLECTOMY ADENOIDECTOMY 2011 Social History Socioeconomic History Marital status: Single Spouse name: Not on file Number of children: Not on file Years of education: Not on file Highest education level: Not on file Occupational History Not on file Tobacco Use Smoking status: Never Smokeless tobacco: Never Vaping Use Vaping status: Never Used Substance and Sexual Activity Alcohol use: Not Currently Alcohol/week: 2.0 standard drinks of alcohol Types: 2 Standard drinks or equivalent per week Comment: Special Social Occasions only Drug use: Yes Sexual activity: Yes Partners: Male control/protection: Condom, Pill Other Topics Concern Service Not Asked Blood Transfusions Not Asked Caffeine Concern Not Asked Occupational Exposure No Hobby Hazards No Sleep Concern Not Asked Stress Concern Not Asked Weight Concern Not Asked Special Diet Not Asked Back Care Not Asked Exercise Not Asked Bike Helmet Not Asked Seat Belt Not Asked Domestic Violence No Social History Narrative Not on file Social Determinants of Health Financial Resource Strain: Not on file Food Insecurity: Not on file Transportation Needs: Not on file Physical Activity: Not on file Stress: Not on file Social Connections: Not on file Intimate Partner Violence: Not on file Housing Stability: Not on file ROS Review of Systems 8 systems reviewed with patient, negative unless specifically mentioned in history of present illness PHYSICAL EXAM Visit Vitals BP 148/83 (BP Location: Right arm, BP Position: Sitting) Pulse 82 Temp 98.4 F (36.9 C) (Temporal) Resp 21 Ht 1.626 m (5' 4) Wt 128.1 kg (282 lb 8 oz) SpO2 99% BMI 48.49 kg/m Physical Exam Vitals and nursing note reviewed. Constitutional: Appearance: Normal appearance. HENT: Head: Normocephalic. Right Ear: Tympanic membrane, ear canal and external ear normal. Left Ear: Tympanic membrane, ear canal and external ear normal. Nose: Nose normal. Mouth/Throat: Mouth: Mucous membranes are moist. Pharynx: Oropharynx is clear. Eyes: Conjunctiva/sclera: Conjunctivae normal. Cardiovascular: Rate and Rhythm: Normal rate and regular rhythm. Pulses: Normal pulses. Heart sounds: Normal heart sounds. Pulmonary: Effort: Pulmonary effort is normal. Breath sounds: Normal breath sounds. Abdominal: General: Bowel sounds are normal. Palpations: Abdomen is soft. Tenderness: There is abdominal tenderness in the right upper quadrant. Musculoskeletal: General: Normal range of motion. Cervical back: Normal range of motion and neck supple. Skin: General: Skin is warm and dry. Neurological: General: No focal deficit present. Mental Status: She is alert. RESULTS Recent Results (from the past 2 hour(s)) POCT URINE DIPSTICK AUTOMATED Collection Time: 01/17/24 12:21 PM Result Value Ref Range POCT APPEARANCE, URINE clear POCT COLOR, URINE yellow POCT GLUCOSE, URINE neg mg/dL POCT BILIRUBIN, URINE neg POCT KETONES, URINE trace mg/dL POCT SPECIFIC GRAVITY, URINE 1.025 1.001 - 1.035 POCT BLOOD, URINE neg POCT PH, URINE 6.0 5 - 7 POCT PROTEIN, URINE neg mg/dL POCT UROBILINOGEN, URINE 0.2 0 - 2 E.U./dL POCT NITRITE, URINE neg POCT LEUKOCYTE, URINE neg POCT ESTERASE, URINE POCT BACTERIA, URINE POCT WBC, URINE POCT RBC, URINE POCT AMORPHOUS, URINE POCT CASTS, QUANTITATIVE, URINE POCT SQUAMOUS EPIS, URINE POCT RENAL EPIS, URINE POCT CRYSTALS, URINE POCT URINE COMMENTS, URINE POCT MICROSCOPIC ASSESSMENT/PLAN 1. Urinary frequency Orders Placed This Encounter POCT URINE DIPSTICK AUTOMATED POC urine dipstick is not indicative of urinary tract infection. I believe this patient would be better served at the emergency department Discussed limitations of the urgent care setting for diagnostic imaging and laboratory studies. Advised patient that based on current complaints, concerns and history, evaluation and treatment in ER is appropriate. Patient hemodynamically stable for transfer to the ER. Patient is agreeable to plan and signed the white sheet. If symptoms worsen patient was advised to follow up in our office, primary care provider or the Emergency Dept. Benefits, Risks, Contraindications, and Complications of recommended treatments were explained. The patient understands and agrees to proceed with plan. VIKRAM Mendoza 01/17/2024 [facility] History of Present illness Narrative* Gaurang Crowley, VIKRAM - 12/07/2023 4:40 PM EST HPI Oswaldo Morel presents to the [facility] with Chief Complaint Patient presents with Sinus Congestion Was recently seen and got ATB, pt says symptoms got worse Ear Pain Sore Throat X 10 days, negative covid test 38-year-old female patient presents for sinus congestion ear pain and sore throat. Patient was seenin the urgent care on November 28 and was prescribed Augmentin for sinusitis. She states that shehad some symptom improvement initially for 3 days and then symptoms have returned. She denies pain in both ears but is worse in the left ear. She has a history of chronic left ear infections. She reports for the past 3 days she is also developed a sore throat. No fever chills body aches no nausea vomiting or diarrhea has been using [id number] Flonase and Mucinex with little relief. The following sections were personally reviewed by me: Tobacco Allergies Meds Problems Med Hx Surg Hx Fam Hx ROS As documented in HPI. A thorough 12 point review of systems was evaluated including Constitutional and general appearance, Head, Face, Ears, Eyes, Nose, Throat, Cardiovascular, Pulmonary, GI, , Skin, and Psychiatric andwas found to be negative without symptoms or signs consistent with acute pathology with the exception of that specifically documented in the HPI section of this documentation. PHYSICAL EXAM Visit Vitals BP 133/84 (BP Location: Left arm, BP Position: Sitting) Pulse 96 Temp 97.1 F (36.2 C) (Temporal) Resp 16 Ht 1.626 m (5' 4) Wt 122.5 kg (270 lb) SpO2 94% BMI 46.35 kg/m Physical Exam Constitutional: General: She is not in acute distress. Appearance: Normal appearance. She is not ill-appearing. HENT: Head: Normocephalic and atraumatic. No right periorbital erythema or left periorbital erythema. Jaw: There is normal jaw occlusion. No trismus, tenderness, swelling, pain on movement or malocclusion. Salivary Glands: Right salivary gland is not diffusely enlarged or tender. Left salivary gland is not diffusely enlarged or tender. Right Ear: Hearing, ear canal and external ear normal. A middle ear effusion is present. Tympanic membrane is erythematous and bulging. Tympanic membrane is not perforated or retracted. Left Ear: Hearing, ear canal and external ear normal. A middle ear effusion is present. Tympanic membrane is not perforated, erythematous, retracted or bulging. Nose: Congestion and rhinorrhea present. Rhinorrhea is clear. Right Turbinates: Enlarged and swollen. Not pale. Left Turbinates: Enlarged and swollen. Not pale. Right Sinus: No maxillary sinus tenderness or frontal sinus tenderness. Left Sinus: No maxillary sinus tenderness or frontal sinus tenderness. Mouth/Throat: Lips: [place]. Mouth: Mucous membranes are moist. Pharynx: Oropharynx is clear. Uvula midline. No pharyngeal swelling, oropharyngeal exudate, posterior oropharyngeal erythema or uvula swelling. Tonsils: No tonsillar exudate or tonsillar abscesses. Eyes: General: Lids are normal. Vision grossly intact. No allergic shiner, visual field deficit or scleral icterus. Right eye: No discharge. Left eye: No discharge. Extraocular Movements: Extraocular movements intact. Conjunctiva/sclera: Conjunctivae normal. Right eye: Right conjunctiva is not injected. No chemosis, exudate or hemorrhage. Left eye: Left conjunctiva is not injected. No chemosis, exudate or hemorrhage. Pupils: Pupils are equal, round, and reactive to light. Cardiovascular: Rate and Rhythm: Normal rate and regular rhythm. Pulmonary: Effort: Pulmonary effort is normal. No respiratory distress. Breath sounds: Normal breath sounds. No stridor, decreased air movement or transmitted upper airwaysounds. No decreased breath sounds, wheezing, rhonchi or rales. Musculoskeletal: Cervical back: Full passive range of motion without pain, normal range of motion and neck supple. No rigidity. Normal range of motion. Lymphadenopathy: Cervical: No cervical adenopathy. Right cervical: No superficial, deep or posterior cervical adenopathy. Left cervical: No superficial, deep or posterior cervical adenopathy. Neurological: Mental Status: She is alert. RESULTS No results found for this or any previous visit (from the past 1 hour(s)). ASSESSMENT/PLAN 1. Acute right otitis media 2. Acute upper respiratory infection 3. Acute maxillary sinusitis, recurrence not specified Orders Placed This Encounter AMB REFERRAL TO ENT Azithromycin (Zithromax Z-Valeria) 250 MG tablet predniSONE 10 MG (21) Tab Therapy Pack Acute right otitis media, acute upper respiratory infection, acute maxillary sinusitis. Discussed treatment options with patient. Will start on Zithromax to cover for otitis media and sinusitis. Prednisone for congestion relief. Patient is diabetic we did discuss risks versus benefits of prednisonetreatment. Patient will monitor her blood sugars closely. Her blood sugars are well controlled currently. She uses Lantus nightly and has increased her Lantus dose as needed on other steroid treatment plans. Patient is alert orient stable condition with no acute distress she is advised that if she develops new or worsening symptoms to return or go to the emergency room otherwise follow with PCP. Referral to ENT was placed. If symptoms worsen patient was advised to follow up in our office, primary care provider or the Emergency Dept. Benefits, Risks, Contraindications, and Complications of recommended treatments were explained. The patient understands and agrees to proceed with the plan. documented in this [facility]12-30-2023 History of Present illness Narrative* Carmen Mckeon PA-C - 11/28/2023 3:35 PM EST HPI Oswaldo Morel female 1985 presents to the [facility] with Chief Complaint Patient presents with Sinus Congestion Pt says it's been going on for approx 1 month, and otc meds are not working Ear Pain Sinus Pain States this has been going on for about a month now. Has left ear pain. States that she has had some diarrhea. History Allergies Allergen Reactions Bee Venom Swelling Pet Dander [*Animal Dander] Seasonal Current Outpatient Medications Medication Sig Aspirin [address] tablet Take 1 tablet by mouth daily. Atenolol 25 MG tablet Take 1 tablet by mouth daily. escitalopram 5 MG tablet Take 1 tablet by mouth daily. fluticasone 50 MCG/ACT Suspension nasal spray 2 sprays by Nasal route daily. Lantus SoloStar 100 UNIT/ML Solution Pen-injector injection Inject 15 Units under the skin Every evening as needed. levothyroxine 112 MCG tablet Take 1 tablet by mouth daily. metFORMIN-XR 500 MG Tab SR 24 HR Take 2 tablets by mouth 2 times daily. 2 tablets bid multivitamin tablet Take 1 tablet by mouth daily. Amoxicillin-clavulanate 875-125 MG tablet Take 1 tablet by mouth every 12 hours for 10 days. Icosapent Ethyl (Vascepa) 1 g capsule Take 2 capsules by mouth 2 times daily. (Patient not taking: Reported on 11/28/2023) Family History Problem Relation Age of Onset Diabetes Mother 12/01/22 Kidney Disease Mother Hypertension Mother Lipid Disorder Mother Sudden Cardiac Mother Passed 12/02/22 Heart Failure Father Heart Disease - Other Father CHF Hypertension Father Lipid Disorder Father Other - Specify Father Fainting Father Depression Father Diabetes Father Mental Illness Sister Lipid Disorder Brother Hypertension Brother Myocardial Infarction Brother Diabetes Brother GI Disease Maternal Grandmother Lung Cancer Maternal Grandfather Colorectal Cancer Maternal Grandfather GI Disease Maternal Grandfather Heart Disease - Other Paternal Grandmother Heart Disease - Other Paternal Grandfather Diabetes Brother Myocardial Infarction Brother STEMI 2021 Lipid Disorder Brother 2021 Mental Illness Sister schizophrenia; biploar Past Medical History: Diagnosis Date Anxiety 05/2021 Arrhythmia PAC's not afib per patient Cardiac angina Depression Diabetes mellitus Type 2 Essential hypertension, benign GERD (gastroesophageal reflux disease) History of chicken pox History of kidney stones Hyperlipidemia Hypothyroidism Obesity Osteoarthritis Osteoarthritis Other sleep apnea Renal disease kidney stones Sinusitis Past Surgical History: Procedure Laterality Date CYSTOURETHROSCOPY W/ URETEROSCOPY/PYELOSCOPY DIAGNOSTIC Right 06/13/2021 Laterality: Right; Surgeon: Juan Dominique MD; Location: [facility] OR TONSILLECTOMY ADENOIDECTOMY 2011 Social History Socioeconomic History Marital status: Single Spouse name: Not on file Number of children: Not on file Years of education: Not on file Highest education level: Not on file Occupational History Not on file Tobacco Use Smoking status: Never Smokeless tobacco: Never Vaping Use Vaping Use: Never used Substance and Sexual Activity Alcohol use: Not Currently Alcohol/week: 2.0 standard drinks of alcohol Types: 2 Standard drinks or equivalent per week Comment: Special Social Occasions only Drug use: Yes Sexual activity: Yes Partners: Male control/protection: Condom, Pill Other Topics Concern Service Not Asked Blood Transfusions Not Asked Caffeine Concern Not Asked Occupational Exposure No Hobby Hazards No Sleep Concern Not Asked Stress Concern Not Asked Weight Concern Not Asked Special Diet Not Asked Back Care Not Asked Exercise Not Asked Bike Helmet Not Asked Seat Belt Not Asked Domestic Violence No Social History Narrative Not on file Social Determinants of Health Financial Resource Strain: Not on file Food Insecurity: Not on file Transportation Needs: Not on file Physical Activity: Not on file Stress: Not on file Social Connections: Not on file Intimate Partner Violence: Not on file Housing Stability: Not on file ROS Review of Systems Constitutional: Negative for fatigue and fever. HENT: Positive for congestion, ear pain, sinus pressure and sinus pain. Eyes: Negative for visual disturbance. Respiratory: Positive for cough. Negative for shortness of breath. Cardiovascular: Negative for chest pain, palpitations and leg swelling. Gastrointestinal: Negative for diarrhea, nausea and vomiting. Genitourinary: Negative for dysuria and frequency. Musculoskeletal: Negative for myalgias. Skin: Negative for rash. Neurological: Negative for weakness, numbness and headaches. Psychiatric/Behavioral: Negative for confusion. 8 systems reviewed with patient, negative unless specifically mentioned in history of present illness PHYSICAL EXAM Visit Vitals BP 168/77 (BP Location: Left arm, BP Position: Sitting) Pulse 79 Temp 97.3 F (36.3 C) (Temporal) Resp 16 Ht 1.626 m (5' 4) Wt 123.4 kg (272 lb) SpO2 98% BMI 46.69 kg/m Physical Exam Vitals and nursing note reviewed. Constitutional: General: She is not in acute distress. HENT: Head: Normocephalic and atraumatic. Right Ear: Tympanic membrane, ear canal and external ear normal. Left Ear: Tympanic membrane, ear canal and external ear normal. Nose: Congestion and rhinorrhea present. Mouth/Throat: Mouth: Mucous membranes are moist. Pharynx: Oropharynx is clear. No oropharyngeal exudate or posterior oropharyngeal erythema. Eyes: General: Right eye: No discharge. Left eye: Discharge present. Extraocular Movements: Extraocular movements intact. Pupils: Pupils are equal, round, and reactive to light. Cardiovascular: Rate and Rhythm: Normal rate and regular rhythm. Pulses: Normal pulses. Heart sounds: No murmur heard. No gallop. Pulmonary: Effort: Pulmonary effort is normal. No respiratory distress. Breath sounds: No wheezing or rhonchi. Musculoskeletal: Right lower leg: No edema. Left lower leg: No edema. Lymphadenopathy: Cervical: No cervical adenopathy. Skin: General: Skin is warm and dry. Capillary Refill: Capillary refill takes less than 2 seconds. Findings: No rash. Neurological: Mental Status: She is alert and oriented to person, place, and time. Psychiatric: Mood and Affect: Mood normal. Thought Content: Thought content normal. RESULTS No results found for this or any previous visit (from the past 1 hour(s)). ASSESSMENT/PLAN 1. Acute bacterial rhinosinusitis Orders Placed This Encounter Amoxicillin-clavulanate 875-125 MG tablet Can take OTC cold medication as needed. Can use acetaminophen or an NSAID for pain or fever. Drink plenty of fluids. Keep your environment humidified. Elevate your head while sleeping. Follow up for persistent or recurrent fever, worsening symptoms. If symptoms worsen patient was advised to follow up in our office, primary care provider or the Emergency Dept. Benefits, Risks, Contraindications, and Complications of recommended treatments were explained. The patient understands and agrees to proceed with plan. Carmen Mckeon PA-C 11/28/2023 [facility] History of Present illness Narrative* Lidia Soni - 11/16/2023 1:00 PM EST ANXIETY/DEPRESSION- Patient her for anxiety/depression. Patient current medications listed on record. Associated sx include stable .Substance abuse - NONE . HYPERTENSION- She presents for follow-up of hypertension. Pt specifically denies headaches, palpitations, and shortness of breath. Current medication regimen is as listed in this record. Blood pressure readings: Pt states they take BP PRN. BP readings averaging 120s-130s HYPOTHYROIDISM- She presents for follow up of hypothyroidism. Current symptoms related to thyroid: denies fatigue, weight changes, heat/cold intolerance, bowel and skin changes, and cardiovascular symptoms. Lab Results Component Value Date TSH 304/01/2005 TYPE 2 DM - Pt present to the office for evaluation of type 2 diabetes. Pt is overall doing well, with glucosesfor the most part averaging 160s. Pt checks blood sugars 2-3 times a day and PRN. No wide fluctuations in glucoses. Tolerating meds well. Denies change in vision, neuropathy, urinary frequency or frequent infections. Pt states they do check their feet for sores and/or ulcers. Pt is not currently seeing podiatry. Pt last diabetic eye exam 11/2022. No results found for: HGBA1C BP Readings from Last 3 Encounters: 09/21/23 119/57 07/15/23 136/80 06/09/23 150/84 Wt Readings from Last 3 Encounters: 09/21/23 122.9 kg (271 lb) 07/15/23 123 kg (271 lb 1.6 oz) 06/09/23 121.9 kg (268 lb 11.2 oz) * Carmen Mckeon PA-C - 11/16/2023 1:00 PM EST ANXIETY/DEPRESSION- Patient her for anxiety/depression. Patient current medications listed on record. Associated sx include stable .Substance abuse - NONE . HYPERTENSION- She presents for follow-up of hypertension. Pt specifically denies headaches, palpitations, and shortness of breath. Current medication regimen is as listed in this record. Blood pressure readings: Pt states they take BP PRN. BP readings averaging 120s-130s HYPOTHYROIDISM- She presents for follow up of hypothyroidism. Current symptoms related to thyroid: denies fatigue, weight changes, heat/cold intolerance, bowel and skin changes, and cardiovascular symptoms. Lab Results Component Value Date TSH 04/01/2005 TYPE 2 DM - Pt present to the office for evaluation of type 2 diabetes. Pt is overall doing well, with glucosesfor the most part averaging 160s. Pt checks blood sugars 2-3 times a day and PRN. No wide fluctuations in glucoses. Tolerating meds well. Denies change in vision, neuropathy, urinary frequency or frequent infections. Pt states they do check their feet for sores and/or ulcers. Pt is not currently seeing podiatry. Pt last diabetic eye exam 11/2022. No results found for: HGBA1C BP Readings from Last 3 Encounters: 11/16/23 (!) 166/103 09/21/23 119/57 07/15/23 136/80 Wt Readings from Last 3 Encounters: 11/16/23 124.7 kg (275 lb) 09/21/23 122.9 kg (271 lb) 07/15/23 123 kg (271 lb 1.6 oz) Review of Systems Constitutional: Negative for fatigue and fever. HENT: Negative for ear pain and sinus pain. Eyes: Negative for visual disturbance. Respiratory: Negative for cough and shortness of breath. Cardiovascular: Negative for chest pain, palpitations and leg swelling. Gastrointestinal: Negative for diarrhea, nausea and vomiting. Genitourinary: Negative for dysuria and frequency. Musculoskeletal: Negative for myalgias. Skin: Negative for rash. Neurological: Negative for weakness, numbness and headaches. Psychiatric/Behavioral: Negative for confusion. Objective: Blood pressure (!) 166/103, pulse 87, height 1.626 m (5' 4), weight 124.7 kg (275 lb), not currently . Physical Exam Vitals and nursing note reviewed. Constitutional: General: She is not in acute distress. HENT: Head: Normocephalic and atraumatic. Eyes: Extraocular Movements: Extraocular movements intact. Pupils: Pupils are equal, round, and reactive to light. Neck: Vascular: No carotid bruit. Cardiovascular: Rate and Rhythm: Normal rate and regular rhythm. Pulses: Normal pulses. Heart sounds: No murmur heard. No gallop. Pulmonary: Effort: Pulmonary effort is normal. No respiratory distress. Breath sounds: No wheezing or rhonchi. Musculoskeletal: Right lower leg: No edema. Left lower leg: No edema. Skin: General: Skin is warm and dry. Capillary Refill: Capillary refill takes less than 2 seconds. Findings: No rash. Neurological: Mental Status: She is alert and oriented to person, place, and time. Psychiatric: Mood and Affect: Mood normal. Thought Content: Thought content normal. Assessment and Plan: 1. Paroxysmal atrial fibrillation Stable, refill sent. - Atenolol 25 MG tablet; Take 1 tablet by mouth daily. Dispense: 90 tablet; Refill: 1 2. Type 2 diabetes mellitus without complication, without long-term current use of insulin Will obtain labs. Is TTC so will not do GLP-1 at this time. - metFORMIN-XR 500 MG Tab SR 24 HR; Take 2 tablets by mouth 2 times daily. 2 tablets bid Dispense: 360 tablet; Refill: 1 - HEMOGLOBIN A1C; Future - BASIC METABOLIC PANEL; Future - HEPATIC FUNCTION PANEL; Future - LIPID PANEL W CALCULATED LDL; Future 3. Anxiety and depression Stable, refill sent. - escitalopram 5 MG tablet; Take 1 tablet by mouth daily. Dispense: 90 tablet; Refill: 1 4. Nasal congestion Stable, refill sent. - fluticasone 50 MCG/ACT Suspension nasal spray; 2 sprays by Nasal route daily. Dispense: 16 g; Refill: 1 5. 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 Will obtain labs and adjust as necessary. - levothyroxine 112 MCG tablet; Take 1 tablet by mouth daily. Dispense: 90 tablet; Refill: 1 - TSH W/FT4 REFLEX; Future Carmen Mckeon PA-C 11/16/2023 [facility] History of Present illness Narrative* Shakir Crowley LPN - 10/23/2023 4:28 PM EST Botox approved [id number] 10/23/23-01/23/24. documented in this [id number] History of Present illness Narrative* VIKRAM Mendoza - 09/21/2023 4:45 PM EDT HPI Oswaldo Morel female 1985 presents to the [facility] with Chief Complaint Patient presents with Ear Pain Ear feels swollen down into jaw, headache, started about a week ago Patient presents with right ear pain for the past week. States she did have nasal congestion approximately 1 week ago and then her right ear started hurting. States her outer ear hurts to touch. States chewing increases the outer ear pain. Denies any fever or chills. Denies any hearing change. Denies any discharge from ear. Denies any URI symptoms History Allergies Allergen Reactions Bee Venom Swelling Seasonal Current Outpatient Medications Medication Sig Accu-Chek FastClix Lancets Misc USE TO CHECK GLUCOSE ONCE DAILY Accu-Chek Guide Strip strip USE TO CHECK GLUCOSE ONCE DAILY acetaminophen 325 MG tablet Take 1 tablet by mouth every 4 hours. escitalopram 5 MG tablet Take 1 tablet by mouth daily. Icosapent Ethyl (Vascepa) 1 g capsule Take 2 capsules by mouth 2 times daily. Lantus SoloStar 100 UNIT/ML Solution Pen-injector injection Inject 15 Units under the skin Every evening as needed. levothyroxine 112 MCG tablet Take 1 tablet by mouth daily. metFORMIN-XR 500 MG Tab SR 24 HR 2 tablets 2 times daily. 2 tablets bid multivitamin tablet Take 1 tablet by mouth daily. Norethindrone 0.35 MG tablet TAKE 1 TABLET BY MOUTH ONCE DAILY AT THE SAME TIME Blood Glucose Monitoring Suppl (ONE TOUCH ULTRA 2) w/Device Kit USE TO TEST BLOOD GLUCOSE ONCE DAILY Jcbxtzlth-Hrmhintvncr-Gnl D (OSTEO BI-FLEX ONE PER DAY PO) Take by mouth. Misc. Devices Misc by Unknown route. APAP 5-20 cm H2O set up 09/04/21 [facility] ofloxacin (Floxin Otic) 0.3 % solution 5 drops by Otic route 2 times daily for 10 days. Family History Problem Relation Age of Onset Diabetes Mother Kidney Disease Mother Hypertension Mother Lipid Disorder Mother Heart Failure Father Heart Disease - Other Father Hypertension Father Lipid Disorder Father Other - Specify Father Fainting Father Depression Father Diabetes Father GI Disease Maternal Grandmother Lung Cancer Maternal Grandfather Colorectal Cancer Maternal Grandfather Heart Disease - Other Paternal Grandmother Heart Disease - Other Paternal Grandfather Past Medical History: Diagnosis Date Anxiety 05/2021 Arrhythmia PAC's not afib per patient Diabetes mellitus Type 2 Essential hypertension, benign Hyperlipidemia Hypothyroidism Osteoarthritis Other sleep apnea Renal disease kidney stones Past Surgical History: Procedure Laterality Date CYSTOURETHROSCOPY W/ URETEROSCOPY/PYELOSCOPY DIAGNOSTIC Right 06/13/2021 Laterality: Right; Surgeon: Juan Dominique MD; Location: [facility] OR TONSILLECTOMY ADENOIDECTOMY Social History Socioeconomic History Marital status: Single Spouse name: Not on file Number of children: Not on file Years of education: Not on file Highest education level: Not on file Occupational History Not on file Tobacco Use Smoking status: Never Smokeless tobacco: Never Vaping Use Vaping Use: Never used Substance and Sexual Activity Alcohol use: Not Currently Comment: occ Drug use: Never Sexual activity: Not Currently Other Topics Concern Service Not Asked Blood Transfusions Not Asked Caffeine Concern Not Asked Occupational Exposure Not Asked Hobby Hazards Not Asked Sleep Concern Not Asked Stress Concern Not Asked Weight Concern Not Asked Special Diet Not Asked Back Care Not Asked Exercise Not Asked Bike Helmet Not Asked Seat Belt Not Asked Domestic Violence No Social History Narrative Not on file Social Determinants of Health Financial Resource Strain: Not on file Food Insecurity: Not on file Transportation Needs: Not on file Physical Activity: Not on file Stress: Not on file Social Connections: Not on file Intimate Partner Violence: Not on file Housing Stability: Not on file ROS Review of Systems 8 systems reviewed with patient, negative unless specifically mentioned in history of present illness PHYSICAL EXAM Visit Vitals BP 119/57 (BP Location: Left arm, BP Position: Sitting) Pulse 72 Temp 98 F (36.7 C) (Temporal) Resp 18 Ht 1.626 m (5' 4) Wt 122.9 kg (271 lb) SpO2 98% BMI 46.52 kg/m Physical Exam Vitals and nursing note reviewed. Constitutional: Appearance: Normal appearance. HENT: Head: Normocephalic. Right Ear: Tympanic membrane, ear canal and external ear normal. Swelling and tenderness present. Left Ear: Tympanic membrane, ear canal and external ear normal. Nose: Nose normal. Mouth/Throat: Mouth: Mucous membranes are moist. Pharynx: Oropharynx is clear. Eyes: Conjunctiva/sclera: Conjunctivae normal. Cardiovascular: Rate and Rhythm: Normal rate and regular rhythm. Pulses: Normal pulses. Heart sounds: Normal heart sounds. Pulmonary: Effort: Pulmonary effort is normal. Breath sounds: Normal breath sounds. Abdominal: General: Bowel sounds are normal. Musculoskeletal: General: Normal range of motion. Cervical back: Normal range of motion and neck supple. Skin: General: Skin is warm and dry. Neurological: General: No focal deficit present. Mental Status: She is alert. RESULTS No results found for this or any previous visit (from the past 1 hour(s)). ASSESSMENT/PLAN 1. Acute diffuse otitis externa of right ear Orders Placed This Encounter ofloxacin (Floxin Otic) 0.3 % solution Right external ear erythematous and swollen. This is consistent with otitis externa of right ear. Idid start the patient on ofloxacin drops. Instruction given. Patient instructed to take Tylenol or Motrin for any pain or fever. Close follow-up with PCP recommend Follow up if symptoms worsen or fails to improve over time. The risk and benefits of therapy were discussed with the patient. Alarm symptoms were discussed, along with reasons for contacting the office or going to the ER. Questions were answered for the patient. Follow up if symptoms worsen or fails to improve over time. If symptoms worsen patient was advised to follow up in our office, primary care provider or the Emergency Dept. Benefits, Risks, Contraindications, and Complications of recommended treatments were explained. The patient understands and agrees to proceed with plan. VIKRAM Mendoza 09/21/2023 documented in this [facility]08-29-2023 History of Present illness Narrative* Shakir Crowley LPN - 07/28/2023 10:20 AM EDT Per [facility] Botox 200 units x 2 vials to be delivered 08/05 between 8-4 at the [facility] . documented in this [id number] History of Present illness Narrative* Shakir Crowley LPN - 07/14/2023 12:34 PM EDT Botox approved with [facility] [id number] FROM 07/14/23 - 10/14/23. documented in this [id number] History of Present illness Narrative* VIKRAM Mendoza - 06/09/2023 5:00 PM EDT HPI Oswaldo Morel female 1985 presents to the [facility] with Chief Complaint Patient presents with Burn Multiple grease pompa on neck Patient presents with 5 small round grease pompa under her chin which happened Thursday while she was cooking. States she was looking a pancake and a grease splashed up under her chin. States she is putting a and D ointment on and just wants to make sure it is not infected. History Allergies Allergen Reactions Bee Venom Swelling Seasonal Current Outpatient Medications Medication Sig Accu-Chek FastClix Lancets Misc USE TO CHECK GLUCOSE ONCE DAILY Accu-Chek Guide Strip strip USE TO CHECK GLUCOSE ONCE DAILY acetaminophen 325 MG tablet Take 1 tablet by mouth every 4 hours. atenolol 25 MG tablet Take 0.5 tablets by mouth. Cpwmxltkt-Xtbxakglhsk-Hao D (OSTEO BI-FLEX ONE PER DAY PO) Take by mouth. escitalopram 5 MG tablet Take 1 tablet by mouth daily. Icosapent Ethyl (Vascepa) 1 g capsule Take 1 capsule by mouth 2 times daily. levothyroxine 112 MCG tablet Take 1 tablet by mouth daily. levothyroxine 112 MCG tablet Take 1 tablet by mouth daily. lisinopril 5 MG tablet metFORMIN-XR 500 MG Tab SR 24 HR 2 tablets 2 times daily. 2 tablets bid Misc. Devices Misc by Unknown route. APAP 5-20 cm H2O set up 09/04/21 DME HOANG Cabrales 5 MG/0.5ML Solution Pen-injector INJECT 5MG BY SUBCUTANEOUS ROUTE EVERY WEEK multivitamin tablet Take 1 tablet by mouth daily. Norethindrone (DONAVAN PO) Take by mouth. rosuvastatin 10 MG tablet Take 1 tablet by mouth daily. Blood Glucose Monitoring Suppl (ONE TOUCH ULTRA 2) w/Device Kit USE TO TEST BLOOD GLUCOSE ONCE DAILY Botox 200 units Recon Soln Botulinum Toxin Type A (Botox) 200 units Recon Soln INJECT 380 UNITS INTRAMUSCULARLY EVERY 84 DAYS . meloxicam 15 MG tablet 1 tablet. 2 tablets bid Meloxicam 15 MG tablet Take 1 tablet by mouth daily. Norethindrone 0.35 MG tablet TAKE 1 TABLET BY MOUTH ONCE DAILY AT THE SAME TIME Tetanus, Diphtheria, and Acellular Pertussis Vaccine 5-2-15.5 LF-MCG/0.5 Suspension Inject 0.5 mL intramuscularly Once (In Clinic) for 1 dose. Family History Problem Relation Age of Onset Diabetes Mother Kidney Disease Mother Hypertension Mother Lipid Disorder Mother Heart Failure Father Heart Disease - Other Father Hypertension Father Lipid Disorder Father Other - Specify Father Fainting Father Depression Father Diabetes Father GI Disease Maternal Grandmother Lung Cancer Maternal Grandfather Colorectal Cancer Maternal Grandfather Heart Disease - Other Paternal Grandmother Heart Disease - Other Paternal Grandfather Past Medical History: Diagnosis Date Anxiety 05/2021 Arrhythmia PAC's not afib per patient Diabetes mellitus Type 2 Essential hypertension, benign Hyperlipidemia Hypothyroidism Osteoarthritis Other sleep apnea Renal disease kidney stones Past Surgical History: Procedure Laterality Date CYSTOURETHROSCOPY W/ URETEROSCOPY/PYELOSCOPY DIAGNOSTIC Right 06/13/2021 Laterality: Right; Surgeon: Juan Dominique MD; Location: [facility] TONSILLECTOMY ADENOIDECTOMY Social History Socioeconomic History Marital status: Single Spouse name: Not on file Number of children: Not on file Years of education: Not on file Highest education level: Not on file Occupational History Not on file Tobacco Use Smoking status: Never Smokeless tobacco: Never Vaping Use Vaping Use: Never used Substance and Sexual Activity Alcohol use: Not Currently Comment: occ Drug use: Never Sexual activity: Not Currently Other Topics Concern Service Not Asked Blood Transfusions Not Asked Caffeine Concern Not Asked Occupational Exposure Not Asked Hobby Hazards Not Asked Sleep Concern Not Asked Stress Concern Not Asked Weight Concern Not Asked Special Diet Not Asked Back Care Not Asked Exercise Not Asked Bike Helmet Not Asked Seat Belt Not Asked Domestic Violence No Social History Narrative Not on file Social Determinants of Health Financial Resource Strain: Not on file Food Insecurity: Not on file Transportation Needs: Not on file Physical Activity: Not on file Stress: Not on file Social Connections: Not on file Intimate Partner Violence: Not on file Housing Stability: Not on file ROS Review of Systems 8 systems reviewed with patient, negative unless specifically mentioned in history of present illness PHYSICAL EXAM Visit Vitals BP 150/84 Pulse 102 Temp 97.6 F (36.4 C) Resp 16 Ht 1.626 m (5' 4) Wt 121.9 kg (268 lb 11.2 oz) SpO2 96% BMI 46.12 kg/m Physical Exam Vitals and nursing note reviewed. Constitutional: Appearance: Normal appearance. HENT: Head: Normocephalic. Right Ear: Tympanic membrane, ear canal and external ear normal. Left Ear: Tympanic membrane, ear canal and external ear normal. Nose: Nose normal. Mouth/Throat: Mouth: Mucous membranes are moist. Pharynx: Oropharynx is clear. Eyes: Conjunctiva/sclera: Conjunctivae normal. Cardiovascular: Rate and Rhythm: Normal rate and regular rhythm. Pulses: Normal pulses. Heart sounds: Normal heart sounds. Pulmonary: Effort: Pulmonary effort is normal. Breath sounds: Normal breath sounds. Abdominal: General: Bowel sounds are normal. Musculoskeletal: General: Normal range of motion. Cervical back: Normal range of motion and neck supple. Skin: General: Skin is warm and dry. Findings: Burn present. Comments: Five small round pompa noted under chin, no blisters noted Neurological: General: No focal deficit present. Mental Status: She is alert. RESULTS No results found for this or any previous visit (from the past 1 hour(s)). ASSESSMENT/PLAN 1. Kgnapqetru-rtatgwl-gmajhoiop (DTP) vaccination 2. Burn Orders Placed This Encounter TDAP VACCINE >10YO 0.5ML IM bacitracin ointment 1 Application Tetanus, Diphtheria, and Acellular Pertussis Vaccine 5-2-15.5 LF-MCG/0.5 Suspension Physical exam does not reveal any evidence of infection. Pompa under chin were cleansed and bacitracin applied. Patient educated regarding signs of infection an advised to watch for signs of infection. Tetanus updated. Patient verbalizes understanding and agrees with this plan of care. If symptoms worsen patient was advised to follow up in our office, primary care provider or the Emergency Dept. Benefits, Risks, Contraindications, and Complications of recommended treatments were explained. The patient understands and agrees to proceed with plan. VKIRAM Mendoza 06/09/2023 [facility] History of Present illness Narrative* Antwon Martin CNP - 05/25/2023 3:32 PM EDTAssociated Order(s): LG Jt Injection/Arthrocentesis: R knee Post-Procedure Diagnose(s): Primary osteoarthritis of right knee LG Jt Injection/Arthrocentesis: R knee Performed by: Antwon Martin CNP Authorized by: Antwon Martin CNP CPT 71550 - Large Joint Arthrocentesis: Consent given by: Patient Time out: Immediately prior to the procedure a time out was called Physician or proceduralist has discussed critical or nonroutine steps, procedure duration and anticipated blood loss: Yes Supporting Documentation: Indications: Pain Procedure Details: Location: Knee Site: R knee Prep: patient was prepped and draped in usual sterile fashion Needle size: 22 G Approach: Anterolateral Medications: 1 mL dexAMETHasone 4 mg/mL, 1 mL triamcinolone acetonide 40 mg/mL Anesthetic used: Lidocaine 1% and Bupivacaine 0.25% Anesthetic amount (mL): 3 Patient tolerance: Patient tolerated the procedure well with no immediate complications * Antwon Martin CNP - 05/25/2023 3:31 PM EDTAssociated Order(s): LG Jt Injection/Arthrocentesis: R subacromial bursa Post-Procedure Diagnose(s): Primary osteoarthritis of right knee LG Jt Injection/Arthrocentesis: R subacromial bursa Performed by: Antwon Martin CNP Authorized by: Antwon Martin CNP CPT 80129 - Large Joint Arthrocentesis: Consent given by: Patient Time out: Immediately prior to the procedure a time out was called Physician or proceduralist has discussed critical or nonroutine steps, procedure duration and anticipated blood loss: Yes Supporting Documentation: Indications: Pain Procedure Details: Location: Shoulder Site: R subacromial bursa Prep: patient was prepped and draped in usual sterile fashion Needle size: 22 G Approach: Posterior Medications: 1 mL dexAMETHasone 4 mg/mL, 1 mL triamcinolone acetonide 40 mg/mL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 daily. 100mcg lisinopril 5 MG tablet meloxicam 15 MG tablet 1 tablet. 2 tablets bid metFORMIN-XR 500 MG Tab SR 24 HR 2 tablets 2 times daily. 2 tablets bid Misc. Devices Misc by Unknown route. APAP 5-20 cm H2O set up 09/04/21 DME [facility] multivitamin tablet Take 1 tablet by mouth daily. Norethindrone (DONAVAN PO) Take by mouth. rosuvastatin 10 MG tablet Take 1 tablet by mouth daily. SITagliptin 100 MG tablet Take 1 tablet by mouth daily. No current facility-administered medications for this visit. family history includes Colorectal Cancer in her maternal grandfather; Depression in her father; Diabetes in her father and mother; Fainting in her father; GI Disease in her maternal grandmother; Heart Disease - Other in her father, paternal grandfather, and paternal grandmother; Heart Failure in her father; Hypertension in her father and mother; Kidney Disease in her mother; Lipid Disorder in her father and mother; Lung Cancer in her maternal grandfather; Other - Specify in her father. Past Medical History: Diagnosis Date Anxiety 05/2021 Arrhythmia PAC's not afib per patient Diabetes mellitus Type 2 Essential hypertension, benign Hyperlipidemia Hypothyroidism Osteoarthritis Other sleep apnea Renal disease kidney stones Past Surgical History: Procedure Laterality Date CYSTOURETHROSCOPY W/ URETEROSCOPY/PYELOSCOPY DIAGNOSTIC Right 06/13/2021 Laterality: Right; Surgeon: Juan Dominique MD; Location: [facility] TONSILLECTOMY ADENOIDECTOMY Social History Socioeconomic History Marital status: Single Spouse name: Not on file Number of children: Not on file Years of education: Not on file Highest education level: Not on file Occupational History Not on file Tobacco Use Smoking status: Never Smokeless tobacco: Never Vaping Use Vaping Use: Never used Substance and Sexual Activity Alcohol use: Not Currently Comment: occ Drug use: Never Sexual activity: Not Currently Other Topics Concern Service Not Asked Blood Transfusions Not Asked Caffeine Concern Not Asked Occupational Exposure Not Asked Hobby Hazards Not Asked Sleep Concern Not Asked Stress Concern Not Asked Weight Concern Not Asked Special Diet Not Asked Back Care Not Asked Exercise Not Asked Bike Helmet Not Asked Seat Belt Not Asked Domestic Violence No Social History Narrative Not on file Social Determinants of Health Financial Resource Strain: Not on file Food Insecurity: Not on file Transportation Needs: Not on file Physical Activity: Not on file Stress: Not on file Social Connections: Not on file Intimate Partner Violence: Not on file Housing Stability: Not on file Physical Exam: Resp 18 Ht 1.626 m (5' 4) Wt 125.6 kg (277 lb) BMI 47.55 kg/m Smoking Status Never Body mass index is 47.55 kg/m . Constitutional: Appears well, no acute distress. Cardiovascular: Regular rate and rhythm. No lower extremity edema. Pulmonary: Respirations even and unlabored. Lungs clear to auscultation. Abdomen: Soft, non-tender. Bowel sounds active x 4. No CVA/suprapubic tenderness noted. Musculoskeletal: All major joints are without swelling, erythema, or bony deformity. Normal range of motion of all major joints. Skin: Warm, dry and intact. Neuro: No sensory or motor deficits. Assessment/Plan: 1. Kidney stone No pain or issues currently. Urinalysis negative. No calculi noted on KUB. Continue stone prevention measures. Repeat KUB in 1 year for stone surveillance. Encouraged to return sooner for new or worsening symptoms. 2. Hyperglycemia Urine negative for glucose or ketones. She is trying to get appointment with PCP next week. Recommended referral to endocrinology. She is going to wait and talk to PCP. BMP and CBC ordered - call with results. Encouraged pt to go to the ER for evaluation for glucose > 300 or if symptomatic. - POCT URINALYSIS DIPSTICK AUTOMATED W/O SCOP Patient was advised to call with any questions or concerns. If symptoms worsen patient was advised to follow up in our office or the Emergency Dept. Benefits, Risks, Contraindications, and Complications of recommended treatments were explained the patient understands and agrees to proceed with plan. documented in this [facility]03-01-2023 History of Present illness Narrative* Shakir Crowley LPN - 01/28/2023 11:09 AM EST LVM for patient Botox to be delivered. Can make an appointment with Antwon SUE for injections on 02/09 at [facility]. documented in this [id number] History of Present illness Narrative* Shakir Crowley LPN - 01/28/2023 10:59 AM EST I spoke with Connie from [facility] . Botox 2 vials will be delivered Tuesday 01/30 at [facility]. documented in this [id number] History of Present illness Narrative* Antwon Martin CNP - 01/26/2023 11:13 AM ESTAssociated Order(s): LG Jt Injection/Arthrocentesis: R subacromial bursa Post-Procedure Diagnose(s): Acute pain of right shoulder LG Jt Injection/Arthrocentesis: R subacromial bursa Performed by: Antwon Martin CNP Authorized by: Antwon Martin CNP CPT 49510 - Large Joint Arthrocentesis: Consent given by: Patient Time out: Immediately prior to the procedure a time out was called Physician or proceduralist has discussed critical or nonroutine steps, procedure duration and anticipated blood loss: Yes Supporting Documentation: Indications: Pain Procedure Details: Location: Shoulder Site: R subacromial bursa Prep: patient was prepped and draped in usual sterile fashion Needle size: 22 G Approach: Posterior Medications: 1 mL dexamethasone 4 mg/mL, 1 mL triamcinolone acetonide 40 mg/mL Anesthetic used: Bupivacaine 0.5% and Bupivacaine 0.25% Anesthetic amount (mL): 1 Patient tolerance: Patient tolerated the procedure well with no immediate complications * Antwon Martin CNP - 01/26/2023 11:12 AM EST 01/26/23 Oswaldo Morel 1985 No chief complaint on file. HISTORY of Present Illness: Oswaldo Morel is a 37 y.o. year old female that presents today with No chief complaint on file. . Oswaldo Morel has had injections in the past. Last injection to right shoulder was over 3 months ago. and they tolerated well. They have been treated w/ oral medications & injections. Patient denies new injury to the shoulders. The following portions of the patient's history were reviewed and updated as appropriate: allergies, current medications, past surgical history and problem list Assessment No documentation. Referred By: No ref. provider found PAST MEDICAL HISTORY The patient's Medications, Allergies, Past Surgical History, Medical History, Family History and Social History were reviewed and can be found in their online medical record, and I have reviewed thisinformation with Oswaldo Morel at the time of their visit. They are significant for Past Medical History: Diagnosis Date Atrial fibrillation (HCC) Disease of thyroid gland Hypertension Osteoarthritis osteoarthritis PHYSICAL EXAM Right Shoulder Exam Tenderness The patient is experiencing tenderness in the acromioclavicular joint and biceps tendon. Range of Motion Active abduction: abnormal Passive abduction: normal Tests Apprehension: positive Additional Notes: IMAGING Notes: none new today. Reviewed from last visit. IMPRESSION And PLAN: Cortisone injection today. Will follow up in 3 months if effective. Call if no improvement in 10 days. 1. Acute pain of right shoulder Antwon Martin CNP documented in this [id number] History of Present illness Narrative* Shakir Crowley LPN - 11/21/2022 12:12 PM EST Botox approved for Cervical dystonia with [facility]. JULIO- [id number] 11/19/2022-02/17/2023. documented in this [id number] History of Present illness Narrative* Berta Steele - 11/20/2022 3:45 PM EST SLEEP Deposit Score - 5 CPAP/BIPAP/APAP Pressure - [id number] Most Recent Sleep Study - 07/2021 Oxygen Use - no If so, how many liters and is it PRN, Nocturnal, or continuous? Patient is benefiting from PAP therapy--YES DME - [facility] Referred by- Dr. 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 N/A Daytime Sleepiness - YES slump at 1-2p Are you able to take naps during the day - NO If so, how often? Do you experience tossing or turning at night? NO Restless legs - NO If so, what medications are you currently taking or have previously been prescribed for RLS? N/A Are you currently or have you previously been treated for ADHD, Narcolepsy, or Fatigue? - NO If so, what medications are you currently taking or have previously been prescribed for ADHD, Narcolepsy, or Fatigue? N/A Waking with gasping/shortness of breath - NO Difficulty concentrate- - NO Waking with headache- NO not recently Significant weight change- NO Have you ever been on medication management for weight loss, spoke with anyone about weight loss surgery/procedures, or have you had a surgical procedure to help with weight loss? NO Pain 0-10- 0 If yes, Location- Upcoming surgeries?- NO Has witnessed apnea ( some body told patient that they stop breathing in their sleep) - YES Med Refills (that we prescribe) - no Pt states that she does not struggle with daytime sleepiness like she did prior to PAP therapy, butshe will get the 1-2pm slump sometimes. She states that the APAP has really helped her in the fact of not having headaches in the morning. * VIKRAM Rodriguez - 11/20/2022 3:45 PM EST HPI: SUBJECTIVE: Oswaldo Morel is a 36 y.o. female being seen today for sleep follow up. Most recent internal polysomnography showed: moderate obstructive sleep apnea (AHI 15.6/hr, REM 42.7 HR) with sleep related hypoxia (bernardino 76%) and problem is likely to result in a high risk morbidity without treatment. Currently on home APAP at 5-20 cmH2O. Patient stated that she is benefiting from the therapy. Her complianceis excellent. Average AHI from the compliance report was 0.6. Patient states improvements with daytime fatigue or excessive daytime sleepiness with PAP therapy. Current sleep problems/side effects include: None. Patient denies snoring during therapy. Patient denies other sleep concerns today. History and Allergies Allergies Allergen Reactions Bee Venom Swelling Seasonal Past Medical History: Diagnosis Date Anxiety 05/2021 Arrhythmia PAC's not afib per patient Diabetes mellitus Type 2 Essential hypertension, benign Hyperlipidemia Hypothyroidism Osteoarthritis Other sleep apnea Renal disease kidney stones Past Surgical History: Procedure Laterality Date CYSTOURETHROSCOPY W/ URETEROSCOPY/PYELOSCOPY DIAGNOSTIC Right 06/13/2021 Laterality: Right; Surgeon: Juan Dominique MD; Location: [facility] TONSILLECTOMY ADENOIDECTOMY Social History Socioeconomic History Marital status: Single Spouse name: Not on file Number of children: Not on file Years of education: Not on file Highest education level: Not on file Occupational History Not on file Tobacco Use Smoking status: Never Smokeless tobacco: Never Vaping Use Vaping Use: Never used Substance and Sexual Activity Alcohol use: Not Currently Comment: occ Drug use: Never Sexual activity: Not Currently Other Topics Concern Service Not Asked Blood Transfusions Not Asked Caffeine Concern Not Asked Occupational Exposure Not Asked Hobby Hazards Not Asked Sleep Concern Not Asked Stress Concern Not Asked Weight Concern Not Asked Special Diet Not Asked Back Care Not Asked Exercise Not Asked Bike Helmet Not Asked Seat Belt Not Asked Domestic Violence No Social History Narrative Not on file Social Determinants of Health Financial Resource Strain: Not on file Food Insecurity: Not on file Transportation Needs: Not on file Physical Activity: Not on file Stress: Not on file Social Connections: Not on file Intimate Partner Violence: Not on file Housing Stability: Not on file Family History Problem Relation Age of Onset Diabetes Mother Kidney Disease Mother Hypertension Mother Lipid Disorder Mother Heart Failure Father Heart Disease - Other Father Hypertension Father Lipid Disorder Father Other - Specify Father Fainting Father Depression Father Diabetes Father GI Disease Maternal Grandmother Lung Cancer Maternal Grandfather Colorectal Cancer Maternal Grandfather Heart Disease - Other Paternal Grandmother Heart Disease - Other Paternal Grandfather Vitals: 11/20/22 1605 BP: 132/88 Pulse: 100 Resp: 16 SpO2: 97% Weight: 125.6 kg (277 lb) Height: 1.626 m (5' 4) Physical Examination Physical Exam Vitals and nursing note reviewed. Constitutional: General: She is not in acute distress. Appearance: She is well-developed. HENT: Head: Normocephalic and atraumatic. Right Ear: External ear normal. Left Ear: External ear normal. Nose: Nose normal. Eyes: General: Right eye: No discharge. Left eye: No discharge. Conjunctiva/sclera: Conjunctivae normal. Pupils: Pupils are equal, round, and reactive to light. Neck: Vascular: No JVD. Cardiovascular: Rate and Rhythm: Normal rate and regular rhythm. Heart sounds: Normal heart sounds. No murmur heard. No friction rub. No gallop. Pulmonary: Effort: Pulmonary effort is normal. No respiratory distress. Breath sounds: Normal breath sounds. No wheezing. Abdominal: General: Bowel sounds are normal. Palpations: Abdomen is soft. Musculoskeletal: General: No deformity. Normal range of motion. Cervical back: Normal range of motion and neck supple. Skin: General: Skin is warm and dry. Neurological: Mental Status: She is alert and oriented to person, place, and time. Psychiatric: Judgment: Judgment normal. SLEEP Deposit Score - 5 CPAP/BIPAP/APAP Pressure - [id number] Most Recent Sleep Study - 07/2021 Oxygen Use - no If so, how many liters and is it PRN, Nocturnal, or continuous? Patient is benefiting from PAP therapy--YES DME - [facility] Referred by- Dr. 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 N/A Daytime Sleepiness - YES slump at 1-2p Are you able to take naps during the day - NO If so, how often? Do you experience tossing or turning at night? NO Restless legs - NO If so, what medications are you currently taking or have previously been prescribed for RLS? N/A Are you currently or have you previously been treated for ADHD, Narcolepsy, or Fatigue? - NO If so, what medications are you currently taking or have previously been prescribed for ADHD, Narcolepsy, or Fatigue? N/A Waking with gasping/shortness of breath - NO Difficulty concentrate- - NO Waking with headache- NO not recently Significant weight change- NO Have you ever been on medication management for weight loss, spoke with anyone about weight loss surgery/procedures, or have you had a surgical procedure to help with weight loss? NO Pain 0-10- 0 If yes, Location- Upcoming surgeries?- NO Has witnessed apnea ( some body told patient that they stop breathing in their sleep) - YES Med Refills (that we prescribe) - no Pt states that she does not struggle with daytime sleepiness like she did prior to PAP therapy, butlorena will get the 1-2pm slump sometimes. She states that the APAP has really helped her in the fact of not having headaches in the morning. CURRENT MEDICATIONS: Current Outpatient Medications Medication Sig Dispense Refill Accu-Chek FastClix Lancets Misc USE TO CHECK GLUCOSE ONCE DAILY Accu-Chek Guide Strip strip USE TO CHECK GLUCOSE ONCE DAILY acetaminophen 325 MG tablet Take 325 mg by mouth every 4 hours. atenolol 25 MG tablet Take 12.5 mg by mouth. Syolkuohk-Phfyipoqerr-Qta D (OSTEO BI-FLEX ONE PER DAY PO) Take by mouth. escitalopram 5 MG tablet Take 5 mg by mouth daily. Icosapent Ethyl (Vascepa) 1 g capsule Take 1 capsule by mouth 2 times daily. 180 Unspecified 2 levothyroxine 125 MCG tablet Take 100 mcg by mouth daily. 100mcg lisinopril 5 MG tablet meloxicam 15 MG tablet 15 mg. 2 tablets bid metFORMIN-XR 500 MG Tab SR 24 HR 1,000 mg 2 times daily. 2 tablets bid Misc. Devices Misc by Unknown route. APAP 5-20 cm H2O set up 09/04/21 D[facility] multivitamin tablet Take 1 tablet by mouth daily. Norethindrone (DONAVAN PO) Take by mouth. rosuvastatin 10 MG tablet Take 10 mg by mouth daily. SITagliptin 100 MG tablet Take 100 mg by mouth daily. No current facility-administered medications for this visit. Lungs: Clear to auscultation bilaterally. Heart: Regular in rate and rhythm. Abd: Soft and non-distended. Skin: No obvious rashes or cyanosis. Neuro: Grossly non-focal examination. MS: No joint erythema/edema. ROS Reviewed. Interpretation of sleep study and compliance report form was completed today and reviewed together with the patient during this visit. ASSESSMENT & PLAN: * KACIE * Sleep Related Hypoxia * Overweight * Reviewed CPAP Compliance Form * Patient was advised to continue with positive pressure therapy at home. * Patient was advised to adhere to a regular sleep hygiene habits. * Reinforced: adverse consequences of KACIE, compliance, wt loss, side sleeping if feasible, sleep hygiene (and avoid/minimize alcohol, sedative/respiratory depressant meds, nicotine/smoking cessation:quit), not driving/operating machinery while sleepy. * Patient will follow up in 1 year * New Supplies Ordered Discussed with patient: the physiology of Sleep Apnea, medical conditions associated with sleep apnea (DM, HTN, CAD, Depression, Stroke, Headaches, CHF, Heart Dysrhythmias) and treatment options. Advised patient to avoid activities that could harm self or others when tired/sleep, including driving and/or operating heavy machinery. Depending on polysomnography results: - Order PAP titration based on insurance requirements, if already on therapy continue therapy, or if symptomatic with high AHI complete another titration. - Will start/continue PAP therapy after results of PAP titration - I will have prescription sent to a [employer] company of choice- who will becalling patient in approximately next 1-2 weeks. - Patient should be eligible for new supplies approximately every 3-6 months, depending on your insurance coverage, [employer] company will inform patient of coverage - If patient mask does not fit well, contact [employer] company before 30 days are up to get a new mask without an additional charge - Insurance requires regular usage and periodic office follow ups for PAP therapy to continue to cover supplies Insurance Requirements: - Your insurance requires a diue-tf-jzld follow up visit within 31-90 days period after starting PAP therapy. - Your insurance requires compliance with PAP therapy, which is at least 4 hours per night for 70% of the time. This must be done over at least 30 day period and must occur within the intial 31-90 day period after starting PAP therapy. - Your insurance also requires at least a yearly follow up to continue to pay for PAP therapy and supplies. A total of 30 minutes were spent at this encounter, and this includes obtaining and/or reviewing separately obtained history , performing exam, review of previous tests and results, independently interpreting results of tests and communicating results to the patient/family/caregiver, ordering medica tions/tests/procedures, counseling the patient and/family on plan of care, referring/communicating with other health manager critical care unit, as well as documenting the clinical information in the EHR. This includes face to face time and preparing to see the patient (review of tests) I personally reviewed selected chart notes, results, interpreted tests, imaging today before seeingthe pt; reviewed and discussed w/ pt, questions answered. Portions of this chart were created using Dragon electronic dictation. Please excuse any typographical or grammatical errors contained herein as a result. VIKRAM Rodriguez documented in this encounterB[facility]12-22-2022 Instructions* Patient Instructions* VIKRAM Rodriguez - 11/20/2022 3:45 PM EST Images from the original note were not included. What you need to know about how sleep apnea affects your heart https://www.heart.org/en/health-topics/ywpt-thfmd-swaqjrba/rbg-xevup-tnpol-high- blood-pressure/pulmo yxle-hbbxbbaniowd-zcbk-urvyh-llkdlqbk-vj-xau-yfwyn-xv-lung-system Snoring can keep you awake, ruin your sleep cycle and your daily rhythm, even harm your relationships. But more than being just an annoyance, snoring may bring about life-threatening consequences. If you ve ever awakened yourself with a sudden snore -- or if your partner nudges you awake to get you to turn over -- it s possible you could be affected by sleep apnea, which is associated with high blood pressure, arrhythmia, stroke and heart failure. Isn t sleep apnea just a fancy name for snoring? Not at all. Snoring is that annoying sound that occurs when air passes relaxed tissues in your throat as you sleep. Sleep apnea is a disorder in which a person s breathing repeatedly starts and stopsduring sleep. Not everyone who snores has sleep apnea, but many who have sleep apnea do snore regularly -- and loudly. One in five adults suffers from at least mild sleep apnea; it afflicts more men than women. The most common type is obstructive sleep apnea (KACIE), in which weight on the upper chest and neck contributes to blocking the flow of air. A less-common type, central sleep apnea (CSA), occurs when the brain fails to send regular signals to the diaphragm to contract and expand. CSA has been associated with brain stem stroke. Why is this a big deal? For people with KACIE, it becomes difficult to keep the upper airway open during sleep because weightoverpowers the muscles that hold it open. Each time the airway closes during sleep, there is a pause in breathing; it can happen five to 30 times an hour or more, causing the sleeper to wake up suddenly, gasping for air. When the air flow stops, the body releases stress hormones, which over time can lead to heart disease -- the leading cause of in the [place] -- stroke and high blood pressure. It also canincrease the risk of type 2 diabetes, liver problems and metabolic syndrome. It s also associated with obesity, and experts say it can be part of a vicious cycle in which the sleep deprivation it causes can lead to even more obesity, which in turn makes the condition worse. Who s at risk? People who are overweight are especially at risk for KACIE because fat deposits around the upper airway can cause the airway s muscles to lose tone over time, leading to obstructed breathing. Similarly, people with thicker necks, narrow throats or enlarged tonsils or adenoids may also be at risk. Men are more likely to have sleep apnea than women, and it occurs significantly more often in olderadults. There also may be an increased risk for people with a family history of sleep apnea, smokers or drinkers. What are the signs? Aside from loud snoring and sudden stopped breathing or gasping for air during sleep (observed by someone else, obviously), symptoms may seem similar to those of any sleep disorder: Waking up with a dry mouth Morning headaches Difficulty sleeping or excessive sleepiness Irritability or trouble paying attention while awake How can I know for sure? Your doctor can evaluate your symptoms, but you may need a sleep specialist to conduct testing, such as overnight monitoring of your breathing, to diagnose your condition and determine its severity. Using a test called polysomnography, your doctor can monitor your heart, lung and brain activity and other movements while you sleep. This study helps rule out other sleep disorders such as restless legs syndrome or narcolepsy. How is it treated? For moderate to severe cases, your doctor may recommend devices or treatments -- or even surgery tohelp open the airway. Common therapies include continuous positive airway pressure (CPAP), in which a machine delivers constant air pressure through a mask into the nose or mouth, or a mouthpiece that is designed to keep a person s throat open. If you have a mild case and you re struggling to get a good night s sleep, your doctor may suggest lifestyle changes, such as: Get regular physical activity, but don t do it right before bed because that gets your adrenaline pumping and can keep you awake. Limit alcohol consumption to one drink per day for women and two drinks for men; too much alcohol interferes with sleep. Avoid caffeine before bed. Develop a pre-bedtime routine such as taking a warm bath, dimming the lights or having some herbal tea. documented in this [facility]11-28-2022 History of Present illness Narrative* Antwon Martin CNP - 10/27/2022 3:33 PM ESTAssociated Order(s): LG Jt Injection/Arthrocentesis: R subacromial bursa Post-Procedure Diagnose(s): Impingement syndrome of right shoulder LG Jt Injection/Arthrocentesis: R subacromial bursa Performed by: Antwon Martin CNP Authorized by: Antwon Martin CNP CPT 48022 - Large Joint Arthrocentesis: Consent given by: Patient Time out: Immediately prior to the procedure a time out was called Physician or proceduralist has discussed critical or nonroutine steps, procedure duration and anticipated blood loss: Yes Supporting Documentation: Indications: Pain Procedure Details: Location: Shoulder Site: R subacromial bursa Prep: patient was prepped and draped in usual sterile fashion Needle size: 22 G Approach: Posterior Medications: 1 mL dexamethasone 4 mg/mL, 1 mL triamcinolone acetonide 40 mg/mL Anesthetic used: Bupivacaine 0.5% and Lidocaine 1% Anesthetic amount (mL): 4 Patient tolerance: Patient tolerated the procedure well with no immediate complications * Antwon Martin CNP - 10/27/2022 3:00 PM EST Subjective: Oswaldo Morel is a 36 y.o. female here for No chief complaint on file. Today she states she having equal resulting pain in right side of neck still. Her injection into her right shouder is helping. Her muscles in her right side of neck are still very painful. .HPI: Cervical spine tenderness on palpation.Pain is exacerbated by stressors such as stress and fatigue. Patient has morning benefit but pain in her cervical muscles as day progresses. Notices that she has shoulder tension and often pull up without patient control. Xrays confirm several levels of cervical degeneration. Again , mornings are when she usually feels the best. 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 This exacerbates the pain and she can't hold her head up straight with pain. When Again emg is negative.PT hurts her. She has tried chiropractic and deep tissue massage and benefits are minimal and short-lived. This is evaluated as a personal injury. Pain is located anterior, lateral, neck, trapezius and levator muscle stiffness. Heat helps some but it is minimal. . Discomfort is described as aching, numbness, sharp/stabbing and tingling. Symptoms are exacerbated by repetitive movements, overhead movements and lying on the shoulder. She also complains of occipital headaches and intrascapular burning.Pain is in middle of right shoulder blade pain is stabbing especially at night when temperature drops. Indication for Injection Dystonia Substance Injected: Botox Botulinum toxin was diluted using 4cc .9NS (preservative free) per 200 units. Muscle Units / Inj Vol / Inj # of Inj Total Units Cervical paraspinals B/L 20 0.2 ml 4 80 L. Levator Scapulae 20 0.4 ml 4 80 R. Levator Scapulae 20 0.4 ml 4 80 L. Trapezius 20 0.5 ml 3 60 R. Trapezius 40 0.5 ml 2 80 Other: 0.0 ml 0 Total Amount Administered 380 Waste units: 20 Total Amount Used 380 The following portions of the patient's history were reviewed and updated as appropriate: allergies, current medications, past surgical history and problem list. Review of Systems Constitutional: Negative for chills, diaphoresis and fever. Respiratory: Negative for shortness of breath. Cardiovascular: Negative for chest pain, palpitations and leg swelling. Genitourinary: Negative for frequency and urgency. Musculoskeletal: Positive for myalgias, neck pain and neck stiffness. Skin: Negative for color change, rash and wound. Neurological: Negative for dizziness, syncope and weakness. Psychiatric/Behavioral: Negative for agitation. The patient is not nervous/anxious. Objective: There were no vitals taken for this visit. Physical Exam Constitutional: Appearance: She is well-developed. HENT: Head: Normocephalic and atraumatic. Eyes: Pupils: Pupils are equal, round, and reactive to light. Cardiovascular: Rate and Rhythm: Normal rate and regular rhythm. Pulmonary: Effort: Pulmonary effort is normal. Breath sounds: Normal breath sounds. Abdominal: General: Bowel sounds are normal. Palpations: Abdomen is soft. Musculoskeletal: General: Tenderness present. Cervical back: Normal range of motion and neck supple. Skin: General: Skin is warm and dry. Neurological: Mental Status: She is alert and oriented to person, place, and time. Deep Tendon Reflexes: Reflexes are normal and symmetric. Assessment/Plan: She is still having cervical tightness and severe pain in trapezius. Right side is worse. Botox does help her pain. No diagnosis found. No follow-ups on file. Antwon Martin CNP 10/26/2022 documented in this [id number] Miscellaneous Notes* Telephone Encounter - Lucila Berman Ma - 09/23/2022 11:42 AM EDT Paperwork faxed to [phone]. Lucila Berman Ma * Telephone Encounter - Alicia Chung Ma - 09/19/2022 11:24 AM EDT Daughter called and LM on to return call on if she would like forms or to fax then scan into pt's chart. Mother has appt today with Shanice. If daughter with her we can ask. Forms in PCP's back office, until we hear back. Alicia Chung Ma * Telephone Encounter - Rohit Clarke MD - 09/18/2022 5:13 PM EDT Forms done Rohit Clarke MD * Telephone Encounter - Lucila Berman Ma - 09/05/2022 1:22 PM EDT Type of letter/form/fax request - FMLA-for her parents Anthony Morel Form received from pt on 1 floor and placed on MD desk (Dr. Clarke) for completion. Completed form needs to be faxed to [phone]. Route to [place] when form completed for processing documented [facility] this [facility] History of Present illness Narrative* Brit Patel, PT - 09/05/2022 4:00 PM EDT Images from the original note were not included. [facility] OUTPATIENT REHABILITATION DAILY TREATMENT NOTE Today's Date 09/05/2022 Patient Name: Oswaldo Morel Date of : 1985 Current Visit #: 11 Authorized Visits: 25 Case Name: L SIJ History: Pre-Treatment Pain Scale: feeling pretty good so far. Symptoms: gradually improved Functional Diagnosis: 1. Chronic left SI joint pain Clinical Information: Subjective: Patient states that she is feeling good this date. States that she has made a lot of progress since her IE. Objective Treatments: Physical Therapy Exercise Log - 09/05/22 1606 OTHER Precautions/Contraindications 3:21-4:00 Notes Jose E Patel Vitals L SIJ - lumbar spine hypomobility. Therapeutic Exercise (77698) Intervention -- Parameters -- Intervention -- Parameters -- Intervention HEP: ABD/ADD isometric, bridge, planks, walking Intervention -- Parameters -- Intervention -- Intervention -- Therapeutic Exercise (28873) Intervention -- Neuro Re-Ed (24128) Add more exercises? No Manual Therapy (16771) Intervention -- PT Treatment Times Therex Total Time 15 Direct Treatment Time 15 Total Treatment Time 15 Goals: Physical Therapy Ortho Goals: MOBILITY: Patient will be able to ambulate for 60 minutes in community without difficulty in 6 weeks.- MET OTHER: Patient able to complete squat and full back bend with no pain in 6 weeks. - Improved IMPAIRMENT: Improve MMT of hip strength to WFL in 6 weeks.- Improved. IMPAIRMENT: Improve AROM of Lumbar ROM to WNL and no discomfort in 6 weeks. - Improved OTHER: Patient will be able to properly demonstrate independence with HEP in 4 weeks.- MET Patient Education: Quality of movement with patient demonstrated understanding. Post-Treatment Pain Scale: 0 Assessment: Patient had an expected response to treatment.Patient will conduct HEP on her own at this time. We will put her on hold for the time being while she tries to implement her HEP into her daily life. If she fails to progress further or notices a decline she has been advised to call back inand continue with therapy. If we do not hear from her in the next 30 days she will be discharged from therapy at that time. Skilled Intervention demonstrated by modifications of treatment per exercise log including increased load and safety interventions per exercise log. Progress towards goals as expected. Plan for Next Visit: Hold Brit Patel PT STATE LICENSE, [id number] documented in this [id number] History of Present illness Narrative* Jazmin Kern, POOL - 08/28/2022 3:15 PM EDT [facility] OUTPATIENT REHABILITATION DAILY TREATMENT NOTE Today's Date 08/28/2022 Patient Name: Oswaldo Morel Date of : 1985 Current Visit #: 10 Authorized Visits: 25 Case Name: L SIJ History: Pre-Treatment Pain Scale: 2-3 L low back Symptoms: gradually improved Functional Diagnosis: 1. Chronic left SI joint pain Clinical Information: Subjective: Pt reports she walked a lot on her [employer] and did fine with it until she got home and it was cold here, she could barely stand up straight her first day back d/t pain. She has been heating her back and that is helpful. Pt states the deadlifts made her thighs so sore after last visit, it was hard to transition onto plane. Objective Included modified planks to progress core strength, sent home sheet for HEP progression. Treatments: Physical Therapy Exercise Log - 08/28/22 1522 OTHER Precautions/Contraindications 3:21-4:00 Notes Jose E Patel Vitals L SIJ - lumbar spine hypomobility. Therapeutic Exercise (20241) Intervention Manual to start Parameters Quadruped rock backs 2x10 Intervention quadruped cat /camel 3 hold each dir x 10 reps Parameters Pelvic tilts: anterior and posterior x10 each Intervention -- Parameters -- Intervention HEP: ABD/ADD isometric, bridge Parameters -- Intervention deadlift from 6 box x10 13# KB Parameters lateral ambulation 2 laps red tb at shins Intervention S/L hip abd 2x10 BLE Parameters -- Intervention Mini Squats with TRX 2x10 Parameters Track walkin laps ~10 minutes- NT wanted to complete later Therapeutic Exercise (60777) Intervention modified plank knees to forearms 15x5 Neuro Re-Ed (36282) Add more exercises? No Manual Therapy (51170) Intervention Lumbar PA grade 3-4 and rotational mobs 7' L long axis distraction 20 hold x8 3' Parameters -- PT Treatment Times Therex Total Time 29 Manual Therapy Total Time 10 Direct Treatment Time 39 Total Treatment Time 39 Goals: Physical Therapy Ortho Goals: MOBILITY: Patient will be able to ambulate for 60 minutes in community without difficulty in 6 weeks. OTHER: Patient able to complete squat and full back bend with no pain in 6 weeks. IMPAIRMENT: Improve MMT of hip strength to WFL in 6 weeks. IMPAIRMENT: Improve AROM of Lumbar ROM to WNL and no discomfort in 6 weeks. OTHER: Patient will be able to properly demonstrate independence with HEP in 4 weeks. Patient Education: Written HEP, Verbal HEP, and HEP Adherence with patient demonstrated understanding, verbalized understanding, and written information provided . Post-Treatment Pain Scale: half Assessment: Patient had an expected response to treatment. Relief with manual interventions. Quick fatigue with squats and deadlifts, and current program. Skilled Intervention demonstrated by modifications of treatment per exercise log including assessment of patient's response and safety interventions per exercise log. Progress towards goals unexpected due to higher than anticipated complexity. Plan for Next Visit: Next visit is last appt, pt is ready to transition to independence with HEP. Jazmin Kern PTA STATE LICENSE, [id number] documented in this [id number] History of Present illness Narrative* Peter Doran PTA - 08/14/2022 4:00 PM EDT [facility] OUTPATIENT REHABILITATION DAILY TREATMENT NOTE Today's Date 08/15/2022 Patient Name: Oswaldo Morel Date of : 1985 Current Visit #: 9 Authorized Visits: 25 Case Name: Adamaris SIJ History: Pre-Treatment Pain Scale: 0 Symptoms: sore/stiff Functional Diagnosis: 1. Chronic left SI joint pain Clinical Information: Subjective: Pt notes increase in soreness after last session and notes compliance with HEP. Pt notes leaving for cruise on Thursday. Objective: Manual as per flow sheet to begin with increased time and cont'd with ex's as per flow sheet while progressing as tolerated. Treatments: Physical Therapy Exercise Log - 08/14/22 1607 OTHER Precautions/Contraindications [id number] Notes Jose E Patel L SIJ - lumbar spine hypomobility. Therapeutic Exercise (09768) Intervention Manual to start Parameters Quadruped rock backs 2x10 Intervention quadruped cat /camel 3 hold each dir x 10 reps Parameters Pelvic tilts: anterior and posterior x10 each Intervention hooklying unilateral clamshell with black TB 2x10 each LE Parameters single SKTC 10x10 each LE with towel- NT Intervention HEP: ABD/ADD isometric, bridge Parameters ripstick anti rot press/chest press 2x10 Intervention deadlift from 4 box 2 x10 20# KB Parameters lateral ambulation 2 laps red tb at shins Intervention S/L hip abd 2x10 BLE Parameters standing hip abd and hip ext 2x10 each LE Intervention Mini Squat at rail x10- NT Parameters Track walkin laps ~10 minutes- NT wanted to complete later Neuro Re-Ed (17824) Add more exercises? No Manual Therapy (25064) Intervention Lumbar PA grade 3-4 and rotational mobs 7' L long axis distraction 20 hold x8 3' Parameters Pelvic obliquity: none PT Treatment Times Therex Total Time 30 Manual Therapy Total Time 10 Direct Treatment Time 40 Total Treatment Time 40 Goals: Physical Therapy Ortho Goals: MOBILITY: Patient will be able to ambulate for 60 minutes in community without difficulty in 6 weeks. OTHER: Patient able to complete squat and full back bend with no pain in 6 weeks. IMPAIRMENT: Improve MMT of hip strength to WFL in 6 weeks. IMPAIRMENT: Improve AROM of Lumbar ROM to WNL and no discomfort in 6 weeks. OTHER: Patient will be able to properly demonstrate independence with HEP in 4 weeks. Patient Education: Quality of movement, Verbal HEP, HEP Adherence, Diagnosis and recovery specific education, Pain Management, and VC's, demo, exercise mechanics, manual techniques, body mechanics, controlled mobility with ex's with patient demonstrated understanding and verbalized understanding. Post-Treatment Pain Scale: 0 but with increase in soreness/fatigue and decreased stiffness to end. Assessment: Patient had an expected response to treatment. Pt required VC's and education as above to complete with Fair return demo and understanding. Pt with tightness in thoracic spine with palpation and more stiffness in (R) LB. Vs (L )with PA and rotational mobs, which helped decrease tightness. Some tenderness around (L) PSIS region. Pt without c/o increase in pain throughout. Held plank trial as pt noted increased fatigue toward end of treatment. Skilled Intervention demonstrated by modifications of treatment per exercise log including increased rate and assessment of patient's response and safety interventions per exercise log. Progress towards goals as expected. Plan for Next Visit: Monitor response to today's treatment session and continue to progress pt toward set goals in POC as tolerated. Monitor response with pain and sx while on vacation. [place]. Peter Doran PTA STATE LICENSE, [id number] documented in this [id number] History of Present illness Narrative* Brit Patel, PT - 08/11/2022 4:00 PM EDT [facility] OUTPATIENT REHABILITATION DAILY TREATMENT NOTE Today's Date 08/11/2022 Patient Name: Oswaldo Morel Date of : 1985 Current Visit #: 8 Authorized Visits: 25 Case Name: Adamaris SIJ History: Pre-Treatment Pain Scale: 2 Symptoms: gradually improved Functional Diagnosis: 1. Chronic left SI joint pain Clinical Information: Subjective: Patient states that therapy has been really beneficial. States that last visit the manual therapies seem to really help. States that some of the exercises seem to aggravate her pain but most of the time she leaves here feeling better. Objective Treatments: Physical Therapy Exercise Log - 08/11/22 1611 OTHER Precautions/Contraindications 4:02-4:52 Yomi Murphyowski, 11 Vitals L SIJ - lumbar spine hypomobility. Therapeutic Exercise (56849) Intervention Manual to start Parameters Quadruped rock backs 2x10 Intervention quadruped cat /cow 3 hold each dir x 10 reps Parameters Pelvic tilts: anterior and posterior x10 each Intervention hooklying unilateral clamshell with black TB 2x10 each LE Parameters single SKTC 10x10 each LE with towel- NT Intervention HEP: ABD/ADD isometric, bridge Parameters ripstick press 2x10 Intervention deadlift from 4 box x10 20# KB Parameters lateral ambulation 1.5 laps red tb at shins Intervention -- Intervention S/L hip abd 2x10 BLE Parameters standing hip abd and hip ext x10 each LE Intervention Mini Squat at rail x10- NT Parameters Track walkin laps ~10 minutes- NT wanted to complete later Neuro Re-Ed (85570) Add more exercises? No Manual Therapy (66572) Intervention Lumbar PA grade 3-4 and rotational mobs 4' L long axis distraction 20 hold x6 2' Parameters Pelvic obliquity: none PT Treatment Times Therex Total Time 30 Manual Therapy Total Time 10 Direct Treatment Time 40 Total Treatment Time 50 Goals: Physical Therapy Ortho Goals: MOBILITY: Patient will be able to ambulate for 60 minutes in community without difficulty in 6 weeks. OTHER: Patient able to complete squat and full back bend with no pain in 6 weeks. IMPAIRMENT: Improve MMT of hip strength to WFL in 6 weeks. IMPAIRMENT: Improve AROM of Lumbar ROM to WNL and no discomfort in 6 weeks. OTHER: Patient will be able to properly demonstrate independence with HEP in 4 weeks. Patient Education: Quality of movement with patient demonstrated understanding. Post-Treatment Pain Scale: sore Assessment: Patient had an expected response to treatment. Patient still has increased pain with bridging and lumbar extension. Her goal is to get back into a active lifestyle like weightlifting. We need to continue to promote higher level core and pelvic stability such as planks, deadlifts, etc before transitioning out of therapy for good. Skilled Intervention demonstrated by modifications of treatment per exercise log including increased load and safety interventions per exercise log. Progress towards goals as expected. Plan for Next Visit: Treatment Visit with focus on continue to progress toward higher level core and pelvic stability exercises. Brit Patel, PT STATE LICENSE, [id number] documented in this [id number] History of Present illness Narrative* Jazmin Concha, [facility] SPECIALIST - 08/07/2022 4:00 PM EDT [facility] OUTPATIENT REHABILITATION DAILY TREATMENT NOTE Today's Date 08/07/2022 Patient Name: Oswaldo Morel Date of : 1985 Current Visit #: 7 Authorized Visits: 25 Case Name: L SIJ History: Pre-Treatment Pain Scale: 1 Symptoms: gradually improved Functional Diagnosis: 1. Chronic left SI joint pain Clinical Information: Subjective: Pt reports she did well after session. Pt reports her pain levels are less overall. Wasable to mow last night without pain, this is a big improvements. Pt reports her glutes feel challenged by the time she leaves PT. [employer] mini squats to work towards goal of completing motion pain free. Also introduced trackwalking to improve endurance and work towards goal (pt doesn't tolerate TM). 10 min walking at track 4 laps (felt like this loosened her up) Treatments: Physical Therapy Exercise Log - 08/07/22 1603 OTHER Precautions/Contraindications 4:02-4:51 Notes Amanda, Jose E Vitals L SIJ - lumbar spine hypomobility. Therapeutic Exercise (59464) Intervention -- Parameters NV- check obliquities, building hip and pelvic stability. Intervention HEP: ABD/ADD isometric, bridge Parameters quadruped cat /cow 3 hold each dir x 10 reps Intervention Pelvic tilts: anterior and posterior x10 each Parameters single SKTC 10x10 each LE with towel Intervention Manual - below Parameters hooklying unilateral clamshell with black TB 2x10 each LE Intervention lateral amb RTB at knees 30 x 1 lap Intervention S/L hip abd 2x10 BLE Parameters standing hip abd and hip ext x10 each LE Intervention Mini Squat at rail x10 Parameters Track walkin laps ~10 minutes Neuro Re-Ed (84159) Add more exercises? No Manual Therapy (20564) Intervention Lumbar PA grade 3-4 and rotational mobs 4' L long axis distraction 20 hold x6 2' Parameters Pelvic obliquity: none PT Treatment Times Therex Total Time 42 Manual Therapy Total Time 6 Direct Treatment Time 48 Total Treatment Time 49 Goals: Physical Therapy Ortho Goals: MOBILITY: Patient will be able to ambulate for 60 minutes in community without difficulty in 6 weeks. OTHER: Patient able to complete squat and full back bend with no pain in 6 weeks. IMPAIRMENT: Improve MMT of hip strength to WFL in 6 weeks. IMPAIRMENT: Improve AROM of Lumbar ROM to WNL and no discomfort in 6 weeks. OTHER: Patient will be able to properly demonstrate independence with HEP in 4 weeks. Patient Education: Quality of movement, Verbal HEP, and HEP Adherence with patient verbalized understanding. Post-Treatment Pain Scale: nearly 0 Assessment: Patient had an expected response to treatment. Increase in pain over lower lumbar spine during standing hip ext. Pt did well with squats, displayscorrect mechanics at shallow depth with no pain. Pt had a good response to track walking, felt it loosened her up. Educated pt on incorporating walking intervals in at home to increase endurance and also for rhythmic pelvic mobility. Poor endurance is evident, pt fatigues easily with strengthening. Skilled Intervention demonstrated by modifications of treatment per exercise log including increased mobility and assessment of patient's response and safety interventions per exercise log. Progress towards goals as expected. Plan for Next Visit: Follow up if pt has been intentional with walking intervals at home/work. Jazmin Kern PTA STATE LICENSE, [id number] documented in this [id number] History of Present illness Narrative* Sincere Arcos PTA - 08/05/2022 4:00 PM EDT [facility] OUTPATIENT REHABILITATION DAILY TREATMENT NOTE Today's Date 08/05/2022 Patient Name: Oswaldo Morel Date of : 1985 Current Visit #: 6 Authorized Visits: 25 Case Name: Adamaris SIJ History: Pre-Treatment Pain Scale: 1 Symptoms: stabilized Functional Diagnosis: 1. Chronic left SI joint pain Clinical Information: Subjective: Pt states has normal stiffness today rating a 1/10. Pt states stiffness is located in Lposterior hip and in between shoulder blades. Pt states felt good after last session. Objective: Started stretching to reduce tightness in lumbar spine. Cont with core and hip strengthening per flow sheet. Introduced L long axis distraction. Completed prone lying and prone prop for lumbar ext stretching. Cont with manual Lumbar PA mobilization for improvement of lumbar mobility. Treatments: Physical Therapy Exercise Log - 08/05/22 1559 OTHER Precautions/Contraindications 3:59-3:37 Notes Amanda, 12 Vitals L SIJ - lumbar spine hypomobility. Therapeutic Exercise (31486) Intervention hip flexion isometric 5x10 manual resist - due to short L LE Parameters NV- check obliquities, building hip and pelvic stability. Intervention HEP: ABD/ADD isometric, bridge Parameters quadruped cat /cow 3 hold each dir x 10 reps Intervention Pelvic tilts: anterior and posterior x10 each Parameters single SKTC 10x10 each LE with towel Intervention Manual - below Parameters hooklying unilateral clamshell with black TB 2x10 each LE Intervention lateral amb RTB at knees 30 x 1 lap Intervention S/L hip abd x12 BLE Parameters standing hip abd and hip ext x10 each LE Neuro Re-Ed (50634) Add more exercises? No Manual Therapy (07535)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 EDTAssociated Order(s): LG Jt Injection/Arthrocentesis: R subacromial bursa Post-Procedure Diagnose(s): Primary osteoarthritis of right shoulder LG Jt Injection/Arthrocentesis: R subacromial bursa Date/Time: 04/16/2022 3:20 PM Performed by: Antwon Martin CNP Authorized by: Antwon Martin CNP CPT 06041 - Large Joint Arthrocentesis: Consent given by: Patient Time out: Immediately prior to the procedure a time out was called Physician or proceduralist has discussed critical or nonroutine steps, procedure duration and anticipated blood loss: Yes Supporting Documentation: Indications: Pain Procedure Details: Location: Shoulder Site: R subacromial bursa Prep: patient was prepped and draped in usual sterile fashion Needle size: 22 G Approach: Posterior Medications: 1 mL dexamethasone 4 mg/mL, 1 mL triamcinolone acetonide 40 mg/mL Anesthetic used: Bupivacaine 0.5% and Lidocaine 1% Anesthetic amount (mL): 4 Patient tolerance: Patient tolerated the procedure well with no immediate complications * Antwon Martin CNP - 04/16/2022 3:13 PM EDT Subjective: Oswaldo Morel is a 36 y.o. female here for No chief complaint on file. .HPI: Cervical spine tenderness on palpation.Pain is exacerbated by stressors such as stress and fatigue. Patient has morning benefit but pain in her cervical muscles as day progresses. Notices that she has shoulder tension and often pull up without patient control. Xrays confirm several levels of cervical degeneration. Again , mornings are when she usually feels the best. 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 This exacerbates the pain and she can't hold her head up straight with pain. When Again emg is negative.PT hurts her. She has tried chiropractic and deep tissue massage and benefits are minimal and short-lived. This is evaluated as a personal injury. Pain is located anterior, lateral, neck, trapezius and levator muscle stiffness. Heat helps some but it is minimal. . Discomfort is described as aching, numbness, sharp/stabbing and tingling. Symptoms are exacerbated by repetitive movements, overhead movements and lying on the shoulder. She would like right shoulder injection today The following portions of the patient's history were reviewed and updated as appropriate: allergies, current medications, past surgical history and problem list. Review of Systems Constitutional: Negative for chills, diaphoresis and fever. Respiratory: Negative for shortness of breath. Cardiovascular: Negative for chest pain, palpitations and leg swelling. Genitourinary: Negative for frequency and urgency. Musculoskeletal: Positive for myalgias, neck pain and neck stiffness. Skin: Negative for color change, rash and wound. Neurological: Negative for dizziness, syncope and weakness. Psychiatric/Behavioral: Negative for agitation. The patient is not nervous/anxious. Objective: There were no vitals taken for this visit. Physical Exam Constitutional: Appearance: She is well-developed. HENT: Head: Normocephalic and atraumatic. Eyes: Pupils: Pupils are equal, round, and reactive to light. Cardiovascular: Rate and Rhythm: Normal rate and regular rhythm. Pulmonary: Effort: Pulmonary effort is normal. Breath sounds: Normal breath sounds. Abdominal: General: Bowel sounds are normal. Palpations: Abdomen is soft. Musculoskeletal: General: Tenderness present. Cervical back: Normal range of motion and neck supple. Skin: General: Skin is warm and dry. Neurological: Mental Status: She is alert and oriented to person, place, and time. Deep Tendon Reflexes: Reflexes are normal and symmetric. Assessment/Plan: She is also having right shoulder flare up .She has gotten injections in the past from [facility]. I will inject right shoulder with steroid today as well Return in about 3 months (around 07/17/2022). Antwon Martin CNP 04/16/2022 documented in this [id number] History of Present illness Narrative* Shakir Crowley LPN - 04/10/2022 4:54 PM EDT Spoke with patient today she will call [facility] concerning the Botox . documented in this [id number] History of Present illness Narrative* Shakir Crowley LPN - 04/10/2022 3:25 PM EDT Approval for botox [id number] expires 07/11/2022. Unable to leave a message for patient at [phone] voicemail is full. Pharmacy needs to speak with patient about botox before the med can be delivered to the office. documented in this [id number] History of Present illness Narrative* Shanice Daniellestanley - 01/28/2022 2:45 PM EST Nurse Note: Review of Systems Genitourinary: Positive for flank pain. Negative for difficulty urinating, dysuria, frequency, hematuria, pelvic pain, urgency and vaginal pain. All other systems reviewed and are negative. Nursing Assessment: Physical Exam Patient comes today for kidney stone F/U. Patient thinks she passed little stones Elisabeth told her about. Patient said she does have pain some. Lab Results Component Value Date APPEARANCE clear 01/28/2022 COLOR yellow 01/28/2022 SPECIFICGRAV neg 01/28/2022 BLOOD 7.0 01/28/2022 PH neg 01/28/2022 PROTEIN 0.2 01/28/2022 UROBILINOGEN neg 01/28/2022 NITRITE neg 01/28/2022 LEUKOCYTE neg 07/24/2021 LEUKOCESTUR NEGATIVE 05/31/2021 * Elisabeth Gregg CNP - 01/28/2022 2:45 PM EST Chief Complaint Patient presents with Follow-up Kidney Stone HPI: 36 y.o. female known to the urology department for kidney stone management. Last stone treatment 05/2021; right URS for ureteral stone. That was her first stone episode. She believes she may have passed a stone several months ago. She denies abdominal/flank pain or hematuria. Denies interim infections. ROS: Nurse Note: Review of Systems Genitourinary: Positive for flank pain. Negative for difficulty urinating, dysuria, frequency, hematuria, pelvic pain, urgency and vaginal pain. All other systems reviewed and are negative. Nursing Assessment: Physical Exam Patient comes today for kidney stone F/U. Patient thinks she passed little stones Elisabeth told her about. Patient said she does have pain some. Lab Results Component Value Date APPEARANCE clear 01/28/2022 COLOR yellow 01/28/2022 SPECIFICGRAV neg 01/28/2022 BLOOD 7.0 01/28/2022 PH neg 01/28/2022 PROTEIN 0.2 01/28/2022 UROBILINOGEN neg 01/28/2022 NITRITE neg 01/28/2022 LEUKOCYTE neg 07/24/2021 LEUKOCESTUR NEGATIVE 05/31/2021 History Allergies Allergen Reactions Bee Venom Swelling Seasonal has body mass index of 40.0-49.9 and Kidney stone on their problem list. Current Outpatient Medications Medication Sig Dispense Refill rosuvastatin 10 MG tablet Take 10 mg by mouth daily. Accu-Chek FastClix Lancets Misc USE TO CHECK GLUCOSE ONCE DAILY Accu-Chek Guide Strip strip USE TO CHECK GLUCOSE ONCE DAILY acetaminophen 325 MG tablet Take 325 mg by mouth every 4 hours. aspirin EC [address] Take 81 mg by mouth daily. atenolol 25 MG tablet Take 12.5 mg by mouth. Biotin 10 MG capsule Take by mouth. Mesdkqobi-Bdimmeqxhtg-Bzx D (OSTEO BI-FLEX ONE PER DAY PO) Take by mouth. escitalopram (Lexapro) 5 MG tablet Take 5 mg by mouth daily. levothyroxine 125 MCG tablet Take 125 mcg by mouth daily. lisinopril 5 MG tablet meloxicam 15 MG tablet 15 mg. metFORMIN-XR 500 MG Tab SR 24 HR 2 times daily. Misc. Devices Misc by Unknown route. APAP 5-20 cm H2O set up 09/04/21 [facility] multivitamin tablet Take 1 tablet by mouth daily. Bagley-3 Fatty Acids (Fish Oil) 1000 MG capsule Take by mouth. No current facility-administered medications for this visit. family history includes Colorectal Cancer in her maternal grandfather; Depression in her father; Diabetes in her father and mother; Fainting in her father; GI Disease in her maternal grandmother; Heart Disease - Other in her father, paternal grandfather, and paternal grandmother; Heart Failure in her father; Hypertension in her father and mother; Kidney Disease in her mother; Lipid Disorder in her father and mother; Lung Cancer in her maternal grandfather; Other - Specify in her father. Past Medical History: Diagnosis Date Anxiety 05/2021 Arrhythmia PAC's not afib per patient Diabetes mellitus Type 2 Essential hypertension, benign Hyperlipidemia Hypothyroidism Osteoarthritis Other sleep apnea Renal disease kidney stones Past Surgical History: Procedure Laterality Date CYSTOURETHROSCOPY W/ URETEROSCOPY/PYELOSCOPY DIAGNOSTIC Right 06/13/2021 Laterality: Right; Surgeon: Juan Dominique MD; Location: [facility] TONSILLECTOMY ADENOIDECTOMY Social History Socioeconomic History Marital status: Single Spouse name: Not on file Number of children: Not on file Years of education: Not on file Highest education level: Not on file Occupational History Not on file Tobacco Use Smoking status: Never Smoker Smokeless tobacco: Never Used Vaping Use Vaping Use: Never used Substance and Sexual Activity Alcohol use: Not Currently Comment: occ Drug use: Never Sexual activity: Not Currently Other Topics Concern Service Not Asked Blood Transfusions Not Asked Caffeine Concern Not Asked Occupational Exposure Not Asked Hobby Hazards Not Asked Sleep Concern Not Asked Stress Concern Not Asked Weight Concern Not Asked Special Diet Not Asked Back Care Not Asked Exercise Not Asked Bike Helmet Not Asked Seat Belt Not Asked Domestic Violence No Social History Narrative Not on file Social Determinants of Health Financial Resource Strain: Not on file Food Insecurity: Not on file Transportation Needs: Not on file Physical Activity: Not on file Stress: Not on file Social Connections: Not on file Intimate Partner Violence: Not on file Housing Stability: Not on file Physical Exam: Resp 16 Ht 1.651 m (5' 5) Wt 121.6 kg (268 lb) BMI 44.60 kg/m Smoking Status Never Smoker Body mass index is 44.6 kg/m . Constitutional: Appears well, no acute distress. Cardiovascular: Regular rate and rhythm. No lower extremity edema. Pulmonary: Respirations even and unlabored. Lungs clear to auscultation. Abdomen: Soft, non-tender. Bowel sounds active x 4. No CVA/suprapubic tenderness noted. Musculoskeletal: All major joints are without swelling, erythema, or bony deformity. Normal range of motion of all major joints. Skin: Warm, dry and intact. Neuro: No sensory or motor deficits. Assessment/Plan: 1. Kidney stone Urinalysis negative. Imaging not done as planned; order was not placed. She will get KUB today and we will call her with results. Continue stone prevention measures. Follow up in 1 year for stone surveillance. Encouraged to return sooner for new or worsening symptoms. Patient was advised to call with any questions or concerns. If symptoms worsen patient was advised to follow up in our office or the Emergency Dept. Benefits, Risks, Contraindications, and Complications of recommended treatments were explained the patient understands and agrees to proceed with plan. documented in this [facility]02-21-2022 History of Present illness Narrative* Antwon Martin CNP - 01/20/2022 3:00 PM EST Subjective: Oswaldo Morel is a 36 y.o. female here for No chief complaint on file. Today she states she having equal resulting pain in let side of neck which is dierent for her. I will increase dosage on left side .HPI: Cervical spine tenderness on palpation.Pain is exacerbated by stressors such as stress and fatigue. Patient has morning benefit but pain in her cervical muscles as day progresses. Notices that she has shoulder tension and often pull up without patient control. Xrays confirm several levels of cervical degeneration. Again , mornings are when she usually feels the best. 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 This exacerbates the pain and she can't hold her head up straight with pain. When Again emg is negative.PT hurts her. She has tried chiropractic and deep tissue massage and benefits are minimal and short-lived. This is evaluated as a personal injury. Pain is located anterior, lateral, neck, trapezius and levator muscle stiffness. Heat helps some but it is minimal. . Discomfort is described as aching, numbness, sharp/stabbing and tingling. Symptoms are exacerbated by repetitive movements, overhead movements and lying on the shoulder. She also complains of occipital headaches and intrascapular burning.Pain is in middle of right shoulder blade pain is stabbing especially at night when temperature drops. Indication for Injection Dystonia Substance Injected: Botox Botulinum toxin was diluted using 4cc .9NS (preservative free) per 200 units. Muscle Units / Inj Vol / Inj # of Inj Total Units Cervical paraspinals B/L 20 0.2 ml 4 80 L. Levator Scapulae 20 0.4 ml 4 80 R. Levator Scapulae 20 0.4 ml 4 80 L. Trapezius 20 0.5 ml 3 60 R. Trapezius 40 0.5 ml 2 80 Other: 0.0 ml 0 Total Amount Administered 380 Waste units: 20 Total Amount Used 380 The following portions of the patient's history were reviewed and updated as appropriate: allergies, current medications, past surgical history and problem list. Review of Systems Constitutional: Negative for chills, diaphoresis and fever. Respiratory: Negative for shortness of breath. Cardiovascular: Negative for chest pain, palpitations and leg swelling. Genitourinary: Negative for frequency and urgency. Musculoskeletal: Positive for myalgias, neck pain and neck stiffness. Skin: Negative for color change, rash and wound. Neurological: Negative for dizziness, syncope and weakness. Psychiatric/Behavioral: Negative for agitation. The patient is not nervous/anxious. Objective: There were no vitals taken for this visit. Physical Exam Constitutional: Appearance: She is well-developed. HENT: Head: Normocephalic and atraumatic. Eyes: Pupils: Pupils are equal, round, and reactive to light. Cardiovascular: Rate and Rhythm: Normal rate and regular rhythm. Pulmonary: Effort: Pulmonary effort is normal. Breath sounds: Normal breath sounds. Abdominal: General: Bowel sounds are normal. Palpations: Abdomen is soft. Musculoskeletal: General: Tenderness present. Cervical back: Normal range of motion and neck supple. Skin: General: Skin is warm and dry. Neurological: Mental Status: She is alert and oriented to person, place, and time. Deep Tendon Reflexes: Reflexes are normal and symmetric. Assessment/Plan: She is still having cervical tightness and severe pain in trapezius. Right side is worse. Botox does help her pain. 1. Cervical radiculopathy No follow-ups on file. Antwon Martin CNP 01/20/2022 documented in this [id number] History of Present illness Narrative* Krystal Mcclain CNP - 10/18/2021 3:50 PM EST HPI Oswaldo Morel female 1985 presents to the [facility] with Chief Complaint Patient presents with Cough Pt c/o nasal drip and coughing up yellow junk and hoarse voice x 3-4 days Presents with c/o scratchy throat, yellow post nasal drng. Onset 3-4 days ago. Taking mucinex which is helping sinus congestion. No fever/chills, chest congestion. History Allergies Allergen Reactions Bee Venom Swelling Seasonal Current Outpatient Medications Medication Sig Accu-Chek FastClix Lancets Misc USE TO CHECK GLUCOSE ONCE DAILY Accu-Chek Guide Strip strip USE TO CHECK GLUCOSE ONCE DAILY acetaminophen 325 MG tablet Take 325 mg by mouth every 4 hours. aspirin EC [address] Take 81 mg by mouth daily. atenolol 25 MG tablet Take 12.5 mg by mouth. Biotin 10 MG capsule Take by mouth. Jdbokwyeb-Oibftdybthd-Del D (OSTEO BI-FLEX ONE PER DAY PO) Take by mouth. escitalopram (Lexapro) 5 MG tablet Take 5 mg by mouth daily. levothyroxine 125 MCG tablet Take 125 mcg by mouth daily. lisinopril 5 MG tablet meloxicam 15 MG tablet 15 mg. metFORMIN-XR 500 MG Tab SR 24 HR 2 times daily. Misc. Devices Misc by Unknown route. APAP 5-20 cm H2O set up 09/04/21 [facility] multivitamin tablet Take 1 tablet by mouth daily. Bagley-3 Fatty Acids (Fish Oil) 1000 MG capsule Take by mouth. predniSONE 20 MG tablet Take 1 tablet by mouth 2 times daily for 5 days. family history includes Colorectal Cancer in her maternal grandfather; Depression in her father; Diabetes in her father and mother; Fainting in her father; GI Disease in her maternal grandmother; Heart Disease - Other in her father, paternal grandfather, and paternal grandmother; Heart Failure in her father; Hypertension in her father and mother; Kidney Disease in her mother; Lipid Disorder in her father and mother; Lung Cancer in her maternal grandfather; Other - Specify in her father. Past Medical History: Diagnosis Date Anxiety 05/2021 Arrhythmia PAC's not afib per patient Diabetes mellitus Type 2 Essential hypertension, benign Hyperlipidemia Hypothyroidism Osteoarthritis Other sleep apnea Renal disease kidney stones Past Surgical History: Procedure Laterality Date CYSTOURETHROSCOPY W/ URETEROSCOPY/PYELOSCOPY DIAGNOSTIC Right 06/13/2021 Laterality: Right; Surgeon: Juan Dominique MD; Location: [facility] TONSILLECTOMY ADENOIDECTOMY Social History Socioeconomic History Marital status: Single Spouse name: Not on file Number of children: Not on file Years of education: Not on file Highest education level: Not on file Occupational History Not on file Tobacco Use Smoking status: Never Smoker Smokeless tobacco: Never Used Vaping Use Vaping Use: Never used Substance and Sexual Activity Alcohol use: Not Currently Comment: occ Drug use: Never Sexual activity: Not Currently Other Topics Concern Service Not Asked Blood Transfusions Not Asked Caffeine Concern Not Asked Occupational Exposure Not Asked Hobby Hazards Not Asked Sleep Concern Not Asked Stress Concern Not Asked Weight Concern Not Asked Special Diet Not Asked Back Care Not Asked Exercise Not Asked Bike Helmet Not Asked Seat Belt Not Asked Domestic Violence No Social History Narrative Not on file Social Determinants of Health Financial Resource Strain: Not on file Food Insecurity: Not on file Transportation Needs: Not on file Physical Activity: Not on file Stress: Not on file Social Connections: Not on file Intimate Partner Violence: Not on file Housing Stability: Not on file ROS Review of Systems Constitutional: Negative. Negative for chills and fever. HENT: Positive for congestion, postnasal drip and sore throat. Negative for sneezing. Eyes: Negative. Negative for discharge. Respiratory: Positive for cough. Negative for shortness of breath. Cardiovascular: Negative. Negative for chest pain and leg swelling. Gastrointestinal: Negative. Negative for abdominal pain and constipation. Endocrine: Negative. Genitourinary: Negative for difficulty urinating. Musculoskeletal: Negative. Negative for gait problem. Skin: Negative. Negative for color change and pallor. Neurological: Negative. Negative for weakness and headaches. Hematological: Negative. Does not bruise/bleed easily. Psychiatric/Behavioral: Negative. Negative for confusion. All other systems reviewed and are negative. PHYSICAL EXAM Visit Vitals BP 137/89 (BP Location: Right arm, BP Position: Sitting) Pulse 96 Temp 98.9 F (37.2 C) (Temporal) Resp 20 Ht 1.651 m (5' 5) Wt 121.3 kg (267 lb 8 oz) SpO2 96% BMI 44.51 kg/m Physical Exam Vitals and nursing note reviewed. HENT: Head: Normocephalic and atraumatic. Nose: Congestion present. Right Sinus: No maxillary sinus tenderness or frontal sinus tenderness. Left Sinus: No maxillary sinus tenderness or frontal sinus tenderness. Mouth/Throat: Pharynx: Uvula midline. Eyes: Pupils: Pupils are equal, round, and reactive to light. Cardiovascular: Rate and Rhythm: Normal rate and regular rhythm. Heart sounds: Normal heart sounds. Pulmonary: Effort: Pulmonary effort is normal. Breath sounds: Normal breath sounds. Abdominal: General: Bowel sounds are normal. Palpations: Abdomen is soft. Musculoskeletal: General: Normal range of motion. Cervical back: Normal range of motion and neck supple. Skin: General: Skin is warm and dry. Neurological: Mental Status: She is alert and oriented to person, place, and time. No results found for this or any previous visit (from the past 1 hour(s)). ASSESSMENT/PLAN 1. Acute upper respiratory infection - predniSONE 20 MG tablet; Take 1 tablet by mouth 2 times daily for 5 days. Dispense: 10 tablet; Refill: 0 Continue mucinex/supportive measures & f/u with PCP. If symptoms worsen patient was advised to follow up in our office or the Emergency Dept. Benefits, Risks, Contraindications, and Complications of recommended treatments were explained. The patient understands and agrees to proceed with plan. Krystal Mcclain CNP 10/18/2021 documented in this [facility]11-17-2021 History of Present illness Narrative* Antwon Martin CNP - 10/16/2021 3:00 PM EST Subjective: Oswaldo Morel is a 35 y.o. female here for No chief complaint on file. .HPI: Cervical spine tenderness on palpation.Pain is exacerbated by stressors such as stress and fatigue. Patient has morning benefit but pain in her cervical muscles as day progresses. Notices that she has shoulder tension and often pull up without patient control. Xrays confirm several levels of cervical degeneration. Again , mornings are when she usually feels the best. 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 This exacerbates the pain and she can't hold her head up straight with pain. When Again emg is negative.PT hurts her. She has tried chiropractic and deep tissue massage and benefits are minimal and short-lived. This is evaluated as a personal injury. Pain is located anterior, lateral, neck, trapezius and levator muscle stiffness. Heat helps some but it is minimal. . Discomfort is described as aching, numbness, sharp/stabbing and tingling. Symptoms are exacerbated by repetitive movements, overhead movements and lying on the shoulder. She also complains of occipital headaches and intrascapular burning.Pain is in middle of right shoulder blade pain is stabbing especially at night when temperature drops. Indication for Injection Dystonia Substance Injected: Botox Botulinum toxin was diluted using 4cc .9NS (preservative free) per 200 units. Muscle Units / Inj Vol / Inj # of Inj Total Units Cervical paraspinals B/L 20 0.2 ml 4 80 L. Levator Scapulae 20 0.4 ml 3 60 R. Levator Scapulae 20 0.4 ml 4 80 L. Trapezius 20 0.5 ml 2 40 R. Trapezius 40 0.5 ml 2 80 Other: 0.0 ml 0 Total Amount Administered 340 Waste units: 60 Total Amount Used 340 The following portions of the patient's history were reviewed and updated as appropriate: allergies, current medications, past surgical history and problem list. Review of Systems Constitutional: Negative for chills, diaphoresis and fever. Respiratory: Negative for shortness of breath. Cardiovascular: Negative for chest pain, palpitations and leg swelling. Genitourinary: Negative for frequency and urgency. Musculoskeletal: Positive for myalgias, neck pain and neck stiffness. Skin: Negative for color change, rash and wound. Neurological: Negative for dizziness, syncope and weakness. Psychiatric/Behavioral: Negative for agitation. The patient is not nervous/anxious. Objective: There were no vitals taken for this visit. Physical Exam Constitutional: Appearance: She is well-developed. HENT: Head: Normocephalic and atraumatic. Eyes: Pupils: Pupils are equal, round, and reactive to light. Cardiovascular: Rate and Rhythm: Normal rate and regular rhythm. Pulmonary: Effort: Pulmonary effort is normal. Breath sounds: Normal breath sounds. Abdominal: General: Bowel sounds are normal. Palpations: Abdomen is soft. Musculoskeletal: General: Tenderness present. Cervical back: Normal range of motion and neck supple. Skin: General: Skin is warm and dry. Neurological: Mental Status: She is alert and oriented to person, place, and time. Deep Tendon Reflexes: Reflexes are normal and symmetric. Assessment/Plan: She is still having cervical tightness and severe pain in trapezius. Right side is worse. Botox does help her pain. 1. Cervical radiculopathy No follow-ups on file. Antwon Martin CNP 10/16/2021 documented in this [id number] History of Present illness Narrative* Shakir Crowley LPN - 10/03/2021 9:49 AM EDT Ashok approval for Botox for Dystonia ME# [id number] expires 04/09/2022. documented in this [id number] History of Present illness Narrative* Coreen Lanier, MEMBER SERVICES COORDINATOR-VICE PRESIDENT [employer] - 07/25/2021 2:30 PM EDT DIANA Morel is a 35 y.o. female being seen today for sleep apnea evaluation. She has been experiencing Sleep apnea: snoring, tossing and turning, decreased concentration, excessive daytime sleepiness, feels sleepy during the day, take naps during the day, morning headaches, morning dry mouth, bruxism. She wakes up multiple times a night and does not feel refreshed in the morning. She also reports sleepiness while at work, driving, reading, watching television. Vitals: 07/25/21 1454 BP: 128/86 Pulse: 85 Resp: 18 SpO2: 98% Weight: 115.8 kg (255 lb 6.4 oz) Height: 1.626 m (5' 4) Modified Mallampati score IV Physical Exam Vitals and nursing note reviewed. Constitutional: General: She is not in acute distress. Appearance: She is well-developed. Comments: Negative for chills, fever HENT: Head: Normocephalic and atraumatic. Right Ear: External ear normal. Left Ear: External ear normal. Nose: Nose normal. Eyes: General: Right eye: No discharge. Left eye: No discharge. Conjunctiva/sclera: Conjunctivae normal. Pupils: Pupils are equal, round, and reactive to light. Neck: Vascular: No JVD. Cardiovascular: Rate and Rhythm: Normal rate and regular rhythm. Heart sounds: Normal heart sounds. No murmur heard. No friction rub. No gallop. Comments: Negative for chest pain Pulmonary: Effort: Pulmonary effort is normal. No respiratory distress. Breath sounds: Normal breath sounds. No wheezing. Abdominal: General: Bowel sounds are normal. Palpations: Abdomen is soft. Musculoskeletal: General: No deformity. Normal range of motion. Cervical back: Normal range of motion and neck supple. Skin: General: Skin is warm and dry. Neurological: Mental Status: She is alert and oriented to person, place, and time. Psychiatric: Judgment: Judgment normal. Past Medical History: Diagnosis Date Anxiety 05/2021 Arrhythmia PAC's not afib per patient Diabetes mellitus Type 2 Essential hypertension, benign Hyperlipidemia Hypothyroidism Osteoarthritis Renal disease kidney stones Past Surgical History: Procedure Laterality Date CYSTOURETHROSCOPY W/ URETEROSCOPY/PYELOSCOPY DIAGNOSTIC Right 06/13/2021 Laterality: Right; Surgeon: Juan Dominique MD; Location: [facility] TONSILLECTOMY ADENOIDECTOMY Allergies Allergen Reactions Bee Venom Swelling Seasonal Outpatient Medications Prior to Visit Medication Sig Dispense Refill Accu-Chek FastClix Lancets Misc USE TO CHECK GLUCOSE ONCE DAILY Accu-Chek Guide Strip strip USE TO CHECK GLUCOSE ONCE DAILY acetaminophen 325 MG tablet Take 325 mg by mouth every 4 hours. aspirin EC [address] Take 81 mg by mouth daily. atenolol 25 MG tablet Take 12.5 mg by mouth. Biotin 10 MG capsule Take by mouth. Sorwtahje-Iundyhaqunu-Uzg D (OSTEO BI-FLEX ONE PER DAY PO) Take by mouth. escitalopram (Lexapro) 5 MG tablet Take 5 mg by mouth daily. levothyroxine 125 MCG tablet Take 125 mcg by mouth daily. lisinopril 5 MG tablet meloxicam 15 MG tablet metFORMIN-XR 500 MG Tab SR 24 HR multivitamin tablet Take 1 tablet by mouth daily. Bagley-3 Fatty Acids (Fish Oil) 1000 MG capsule Take by mouth. hydroCODone-acetaminophen 5-325 MG tablet Take 1 tablet by mouth every 4 hours as needed for up to 2 days. 12 tablet 0 Tamsulosin HCl 0.4 MG capsule Take 1 capsule by mouth daily. 7 capsule 0 No facility-administered medications prior to visit. Family History Problem Relation Age of Onset Diabetes Mother Kidney Disease Mother Hypertension Mother Lipid Disorder Mother Heart Failure Father Heart Disease - Other Father Hypertension Father Lipid Disorder Father Other - Specify Father Fainting Father Depression Father Diabetes Father GI Disease Maternal Grandmother Lung Cancer Maternal Grandfather Colorectal Cancer Maternal Grandfather Heart Disease - Other Paternal Grandmother Heart Disease - Other Paternal Grandfather Social History Socioeconomic History Marital status: Single Spouse name: Not on file Number of children: Not on file Years of education: Not on file Highest education level: Not on file Occupational History Not on file Tobacco Use Smoking status: Never Smoker Smokeless tobacco: Never Used Vaping Use Vaping Use: Never used Substance and Sexual Activity Alcohol use: Not Currently Comment: occ Drug use: Never Sexual activity: Not Currently Other Topics Concern Service Not Asked Blood Transfusions Not Asked Caffeine Concern Not Asked Occupational Exposure Not Asked Hobby Hazards Not Asked Sleep Concern Not Asked Stress Concern Not Asked Weight Concern Not Asked Special Diet Not Asked Back Care Not Asked Exercise Not Asked Bike Helmet Not Asked Seat Belt Not Asked Domestic Violence No Social History Narrative Not on file Social Determinants of Health Financial Resource Strain: Difficulty of Paying Living Expenses: Food Insecurity: Worried About Running Out of Food in the Last Year: Ran Out of Food in the Last Year: Transportation Needs: Lack of Transportation (Medical): Lack of Transportation (Non-Medical): Physical Activity: Days of Exercise per Week: Minutes of Exercise per Session: Stress: Feeling of Stress : Social Connections: Frequency of Communication with Friends and Family: Frequency of Social Gatherings with Friends and Family: Attends Pentecostal Services: Active Member of Clubs or Organizations: Attends Club or Organization Meetings: Marital Status: Intimate Partner Violence: Fear of Current or Ex-Partner: Emotionally Abused: Physically Abused: Sexually Abused: SLEEP Deposit Score - 14 Neck Circumference - 15.5 Most Recent Sleep Study - N/A Oxygen Use - NO 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 Pt states that her fatigue lasts all day. Pt states that it is hard to get to sleep and stay asleep, but since started Lexapro for anxiety. Pt states but now she is still having the fatigueissue. Pt states that she has had a hard time losing weight. ROS Reviewed. IMPRESSION AND PLAN: - Sleep apnea, unspecified - Hypersomnia - Fatigue - Snoring - Bruxism - Difficulty Concentrating - Morning Headaches - Overweight * Patient was advised to lose weight. * Patient was advised to avoid alcohol and sedative medications. 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 * Patient was advised to maintain a regular sleep schedule. * Will order for an overnight Polysomnography. Spent 30 minutes with patient face to face and more than 50% of this time was spent in counseling and coordination of care. Portions of this chart were created using [employer] electronic dictation. Please excuse any typographical or grammatical errors contained herein as a result. 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 Pt states that her fatigue lasts all day. Pt states that it is hard to get to sleep and stay asleep, but since started Lexapro for anxiety. Pt states but now she is still having the fatigueissue. Pt states that she has had a hard time losing weight. [facility] History of Present illness Narrative* Monik Emanuel - 07/24/2021 3:00 PM EDT Nurse Note: Review of Systems Constitutional: Negative. HENT: Negative. Eyes: Negative. Respiratory: Negative. Cardiovascular: Negative. Gastrointestinal: Negative. Endocrine: Negative. Genitourinary: Positive for frequency and urgency. Musculoskeletal: Negative. Allergic/Immunologic: Negative. Neurological: Negative. Hematological: Negative. Psychiatric/Behavioral: Negative. Nursing Assessment: Physical Exam Follow up for Stone PVR: 34 Lab Results Component Value Date APPEARANCE clear 07/24/2021 COLOR yellow 07/24/2021 KETONES neg 07/24/2021 SPECIFICGRAV 1.015 07/24/2021 BLOOD neg 07/24/2021 PH 6.0 07/24/2021 PROTEIN neg 07/24/2021 UROBILINOGEN 0.2 07/24/2021 NITRITE neg 07/24/2021 LEUKOCYTE neg 07/24/2021 LEUKOCESTUR NEGATIVE 05/31/2021 * Elisabeth Gregg, [facility] - 07/24/2021 3:00 PM EDT Chief Complaint Patient presents with Follow-up Stone HPI: Oswaldo Morel is a 35 y.o. female known to the urology department for kidney stone management. She is status post right ureteroscopy with laser lithotripsy 06/13/21 for right ureteral stone. This was her first stone episode. She feels well; denies abdominal/flank pain or hematuria. ROS: Nurse Note: Review of Systems Constitutional: Negative. HENT: Negative. Eyes: Negative. Respiratory: Negative. Cardiovascular: Negative. Gastrointestinal: Negative. Endocrine: Negative. Genitourinary: Positive for frequency and urgency. Musculoskeletal: Negative. Allergic/Immunologic: Negative. Neurological: Negative. Hematological: Negative. Psychiatric/Behavioral: Negative. Nursing Assessment: Physical Exam Follow up for Stone PVR: 34 Lab Results Component Value Date APPEARANCE clear 07/24/2021 COLOR yellow 07/24/2021 KETONES neg 07/24/2021 SPECIFICGRAV 1.015 07/24/2021 BLOOD neg 07/24/2021 PH 6.0 07/24/2021 PROTEIN neg 07/24/2021 UROBILINOGEN 0.2 07/24/2021 NITRITE neg 07/24/2021 LEUKOCYTE neg 07/24/2021 LEUKOCESTUR NEGATIVE 05/31/2021 History Allergies Allergen Reactions Bee Venom Swelling Seasonal has body mass index of 40.0-49.9 and Kidney stone on their problem list. Current Outpatient Medications Medication Sig Dispense Refill Accu-Chek FastClix Lancets Misc USE TO CHECK GLUCOSE ONCE DAILY Accu-Chek Guide Strip strip USE TO CHECK GLUCOSE ONCE DAILY acetaminophen 325 MG tablet Take 325 mg by mouth every 4 hours. aspirin EC [address] Take 81 mg by mouth daily. atenolol 25 MG tablet Take 12.5 mg by mouth. Biotin 10 MG capsule Take by mouth. Hukapejzd-Zuffclceppa-Bcu D (OSTEO BI-FLEX ONE PER DAY PO) Take by mouth. escitalopram (Lexapro) 5 MG tablet Take 5 mg by mouth daily. levothyroxine 125 MCG tablet Take 125 mcg by mouth daily. lisinopril 5 MG tablet meloxicam 15 MG tablet metFORMIN-XR 500 MG Tab SR 24 HR multivitamin tablet Take 1 tablet by mouth daily. Bagley-3 Fatty Acids (Fish Oil) 1000 MG capsule Take by mouth. hydroCODone-acetaminophen 5-325 MG tablet Take 1 tablet by mouth every 4 hours as needed for up to 2 days. 12 tablet 0 Tamsulosin HCl 0.4 MG capsule Take 1 capsule by mouth daily. 7 capsule 0 No current facility-administered medications for this visit. family history includes Colorectal Cancer in her maternal grandfather; Depression in her father; Diabetes in her father and mother; Fainting in her father; GI Disease in her maternal grandmother; Heart Disease - Other in her father, paternal grandfather, and paternal grandmother; Heart Failure in her father; Hypertension in her father and mother; Kidney Disease in her mother; Lipid Disorder in her father and mother; Lung Cancer in her maternal grandfather; Other - Specify in her father. Past Medical History: Diagnosis Date Arrhythmia PAC's not afib per patient Atrial fibrillation Diabetes mellitus Type 2 Essential hypertension, benign Hyperlipidemia Hypothyroidism Osteoarthritis Renal disease kidney stones Past Surgical History: Procedure Laterality Date CYSTOURETHROSCOPY W/ URETEROSCOPY/PYELOSCOPY DIAGNOSTIC Right 06/13/2021 Laterality: Right; Surgeon: Juan Dominique MD; Location: [facility] TONSILLECTOMY ADENOIDECTOMY Social History Socioeconomic History Marital status: Single Spouse name: Not on file Number of children: Not on file Years of education: Not on file Highest education level: Not on file Occupational History Not on file Tobacco Use Smoking status: Never Smoker Smokeless tobacco: Never Used Vaping Use Vaping Use: Never used Substance and Sexual Activity Alcohol use: Not Currently Comment: occ Drug use: Never Sexual activity: Not Currently Other Topics Concern Service Not Asked Blood Transfusions Not Asked Caffeine Concern Not Asked Occupational Exposure Not Asked Hobby Hazards Not Asked Sleep Concern Not Asked Stress Concern Not Asked Weight Concern Not Asked Special Diet Not Asked Back Care Not Asked Exercise Not Asked Bike Helmet Not Asked Seat Belt Not Asked Domestic Violence No Social History Narrative Not on file Social Determinants of Health Financial Resource Strain: Difficulty of Paying Living Expenses: Food Insecurity: Worried About Running Out of Food in the Last Year: Ran Out of Food in the Last Year: Transportation Needs: Lack of Transportation (Medical): Lack of Transportation (Non-Medical): Physical Activity: Days of Exercise per Week: Minutes of Exercise per Session: Stress: Feeling of Stress : Social Connections: Frequency of Communication with Friends and Family: Frequency of Social Gatherings with Friends and Family: Attends Pentecostal Services: Active Member of Clubs or Organizations: Attends Club or Organization Meetings: Marital Status: Intimate Partner Violence: Fear of Current or Ex-Partner: Emotionally Abused: Physically Abused: Sexually Abused: Physical Exam: Resp 18 Ht 1.626 m (5' 4) Wt 114.3 kg (252 lb) SpO2 98% BMI 43.26 kg/m Smoking Status Never Smoker Body mass index is 43.26 kg/m . Constitutional: Appears well, no acute distress. Cardiovascular: Regular rate and rhythm. No lower extremity edema. Pulmonary: Respirations even and unlabored. Lungs clear to auscultation. Abdomen: Soft, non-tender. Bowel sounds active x 4. No CVA/suprapubic tenderness noted. Musculoskeletal: All major joints are without swelling, erythema, or bony deformity. Normal range of motion of all major joints. Skin: Warm, dry and intact. Neuro: No sensory or motor deficits. Assessment/Plan: 1. Ureteral stone 2. Kidney stone S/P Right URS. Urinalysis negative. PVR 34 ml. Renal ultrasound negative for hydronephrosis. Continue to monitor bilateral punctate stones. Follow up in 6 months with [facility] prior. Recommended increasing fluid intake (aiming for >2 L of urine output daily), addition of fresh lemon to the water, anddecreasing sodium and protein intake to prevent further stone formation. Patient was advised to call with any questions or concerns. If symptoms worsen patient was advised to follow up in our office or the Emergency Dept. Benefits, Risks, Contraindications, and Complications of recommended treatments were explained the patient understands and agrees to proceed with plan. documented in this [facility]07-15-2021 Hospital Discharge instructions* Instructions* Richi Cheng RN - 06/13/2021 Anesthesia Precautions & Expectations: After anesthesia, rest for [address], drink alcoholic beverages or make any important decisions during this time. General anesthesia may cause a sore throat, jaw discomfort or muscle aches. These symptoms can last for one or two days. * Attachments The following attachments cannot be sent through Care Everywhere. * Ureteroscopy: Post-op (Iranian) * Cystoscopy: Post-op (Iranian) documented in this [facility]07-15-2021 Nurse Note* Richi Cheng RN - 06/13/2021 12:45 PM EDT Discharge instructions reviewed with pt and family at bedside. All voiced understanding. Discharge instructions given to pt. Discharged home in stable condition. Escorted to car via wheelchair by staff. Family driving. * Corine Bal RN - 06/13/2021 10:55 AM EDT Patient transferred to PACU via Cart with TELEPHONE INTERVIEWER and RN. Report given to [place] BRADEN documented in this [facility]07-15-2021 Miscellaneous Notes* Nursing Notes - Orlando Hutson RN - 06/13/2021 11:53 AM EDT Discharged from PACU in stable condition at this time. Transported via cart to [facility]. Cart placed in lowest position. Call light within reach. Pulse ox monitor on pt with alarms set. Report greer Cheng RN. * Op Note - Juan Dominique MD - 06/13/2021 11:23 AM EDT DATE: 06/13/2021 Patient: Oswaldo Morel Pre-Op Dx: Right ureteral stone Post-Op Dx: same Procedure: 1. right diagnostic ureteroscopy 2. Interpretation of retrograde pyelogram (12231) Anesthesia: General Surgeon: Surgeon(s) and Role: * Juan Dominique MD - Primary COMPLICATIONS: None. BLOOD LOSS: Minimal PROCEDURE : The patient reports ongoing right flank pain due to an 8 mm right distal stone. When interviewed and preop this morning, she had persistent right flank pain and requested urgent intervention. Risks and benefits reviewed. Patient was introduced into the operating room and placed in dorsal lithotomy position. Patient wassterilely prepped and draped in the standard fashion. Timeout was performed A rigid cystoscope was passed into the patient's bladder. The bladder was inspected. No tumors, stones, foreign bodies, or mucosal lesions were identified. I passed a Glidewire into the right kidney under fluoroscopic guidance. I then dilated the ureteralorifice using an 8/10 coaxial dilator. I then passed the semirigid scope into the right ureter. I passed this all with the proximal ureter. No stone was identified. I then performed a right retropyelogram which drained promptly. Therefore no stent was placed. I also performed a left retropyelogram that was essentially normal The bladder was emptied and the procedure was terminated. The patient tolerated the procedure well. The patient will follow-up in approximately 6 weeks with a renal ultrasound Juan Dominique MD * Brief Op Note - Juan Dominique MD - 06/13/2021 11:23 AM EDT Please see immediate operative note. [facility] History and physical note* Omid Coffey CNP - 06/13/2021 9:43 AM EDT HISTORY OF PRESENT ILLNESS 35 y.o. female seen today as a new patient for evaluation of Nephrolithiasis. Recent CT shows 7.3 mm calculus noted at or near the right UVJ, as well as punctate calculi ofboth kidneys without inflammation or hydronephrosis. Symptoms include right flank pain. Patient denies history of previous stone. No significant medical history. External ER notes, urinalysis, urine culture; no growth, Hgb A1c; 7.1, CMP; creatinine 0.[address] reviewed. ASSESSMENT AND PLAN 1.Nephrolithiasis- Discussed management options. Patient elected to proceed with surgical intervention. We discussed multiple stone treatment options. We thoroughly reviewed the risks and benefits of ureteroscopy, laser lithotripsy, with possible stent placement which includes but not limited to pain, bleeding, infection, ureteral or kidney damage requiring prolonged stenting or additional procedures. I advised patient that it may take multiple treatments to achieve stone free status. Patient understands that the stone may asymptomatically pass prior to surgery, and therefore no stone may be identified endoscopically. Patient is ready and eager to proceed. Surgery was scheduled today. She reports ongoing significant lower right pain and requested urgent intervention. She understandsrisks involved, including the possibility of a spontaneously passed stone that is not present at time of surgery. Informed consent obtained today. History Allergies Allergen Reactions Bee Venom Swelling Seasonal has body mass index of 40.0-49.9 and Kidney stone on their problem list. Current Facility-Administered Medications Medication Dose Route Frequency Provider Last Rate Last Admin ceFAZolin (ANCEF) 2 g in dextrose 100 mL premix IVPB 2 g Intravenous 60 MIN pre- op Omid Coffey CNP sodium chloride 0.9% IV solution 100 mL/hr Intravenous Continuous Omid Coffey CNP family history includes Colorectal Cancer in her maternal grandfather; Depression in her father; Diabetes in her father and mother; Fainting in her father; GI Disease in her maternal grandmother; Heart Disease - Other in her father, paternal grandfather, and paternal grandmother; Heart Failure in her father; Hypertension in her father and mother; Kidney Disease in her mother; Lipid Disorder in her father and mother; Lung Cancer in her maternal grandfather; Other - Specify in her father. Past Medical History: Diagnosis Date Arrhythmia PAC's not afib per patient Atrial fibrillation Diabetes mellitus Type 2 Essential hypertension, benign Hyperlipidemia Hypothyroidism Osteoarthritis Renal disease kidney stones Past Surgical History: Procedure Laterality Date TONSILLECTOMY ADENOIDECTOMY Social History Tobacco Use Smoking Status Never Smoker Smokeless Tobacco Never Used Social History Substance and Sexual Activity Alcohol Use Not Currently Comment: occ Physical Examination: Vital Signs: BP 125/72 (BP Location: Left arm, BP Position: Lying) Pulse 81 Temp 96.6 F (35.9 C) (Temporal) Resp 11 Ht 1.626 m (5' 4) Wt 114.3 kg (252 lb) SpO2 95% BMI 43.26 kg/m Smoking Status Never Smoker Constitutional: Oriented to person, place, and time. Appears well developed and well nourished. Eyes: conjunctiva/corneas clear, normal vision Ears/Nose/Mouth Eyes -EOMI. Ears - External normal ear. Hearing normal. Mouth - Lips normal color. Head/Neck: Face symmetrical, trachea midline, Head - Normocephalic. symmetrical. Normal ROM, neck supple. Pulmonary/chest: Normal respiratory effort, non-labored breathing. Abdominal/GI: Soft, non-tender, no organomegaly. Bowel sounds normal. Cardiovascular Normal rate and regular rhythm. No Murmurs or Rubs. Radial Pulses Normal. Circulation Normal. Neurologic: Alert and oriented x3. No focal neurological deficits noted. Extremities: No clubbing, cyanosis, or edema noted, no calf tenderness bilaterally. Skin: Warm and dry.Normal turgor, well-hydrated, no rashes noted. Psych: Normal mood and affect. Behavior is normal. documented in this [facility]07-06-2021 History of Present illness Narrative* Christiana Lopez - 06/04/2021 12:30 PM EDT Nurse Note: Review of Systems Constitutional: Negative. HENT: Negative. Eyes: Negative. Respiratory: Negative. Cardiovascular: Negative. Gastrointestinal: Positive for diarrhea. Endocrine: Positive for cold intolerance, heat intolerance, polydipsia, polyphagia and polyuria. Genitourinary: Positive for flank pain and hematuria. Musculoskeletal: Positive for arthralgias. Skin: Negative. Allergic/Immunologic: Negative. Neurological: Negative. Hematological: Negative. Psychiatric/Behavioral: Negative. Nursing Assessment: Physical Exam Patient is here for evaluation of kidney stone after an ER visit confirmed a 7.2 mm stone. Has tamsulosin and Percocet for pain which she doesn't like to take. 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 Patient reports having Diabetes and arthritis. * Shanice Hidalgo - 06/04/2021 12:30 PM EDT Lab Results Component Value Date APPEARANCE clear 06/04/2021 COLOR yellow 06/04/2021 KETONES neg 06/04/2021 SPECIFICGRAV 1.020 06/04/2021 BLOOD SMALL 06/04/2021 PH 6.0 06/04/2021 PROTEIN neg 06/04/2021 UROBILINOGEN 0.2 06/04/2021 NITRITE neg 06/04/2021 LEUKOCYTE neg 06/04/2021 LEUKOCESTUR NEGATIVE 05/31/2021 * Juan Dominique MD - 06/04/2021 12:30 PM EDT HISTORY OF PRESENT ILLNESS 35 y.o. female seen today as a new patient for evaluation of Nephrolithiasis. Recent CT shows 7.3 mm calculus noted at or near the right UVJ, as well as punctate calculi ofboth kidneys without inflammation or hydronephrosis. Symptoms include right flank pain. Patient denies history of previous stone. No significant medical history. External ER notes, urinalysis, urine culture; no growth, Hgb A1c; 7.1, CMP; creatinine 0.[address] reviewed. Performed independent interpretation of the CT scan. ASSESSMENT AND PLAN 1.Nephrolithiasis- Discussed management options. Patient elected to proceed with surgical intervention. We discussed multiple stone treatment options. We thoroughly reviewed the risks and benefits of ureteroscopy, laser lithotripsy, with possible stent placement which includes but not limited to pain, bleeding, infection, ureteral or kidney damage requiring prolonged stenting or additional procedures. I advised patient that it may take multiple treatments to achieve stone free status. Patient understands that the stone may asymptomatically pass prior to surgery, and therefore no stone may be identified endoscopically. Patient is ready and eager to proceed. Surgery was scheduled today. Take pain medication as needed. History Allergies Allergen Reactions Bee Venom Swelling Seasonal has body mass index of 40.0-49.9 on their problem list. Current Outpatient Medications Medication Sig Dispense Refill Accu-Chek FastClix Lancets Misc USE TO CHECK GLUCOSE ONCE DAILY Accu-Chek Guide Strip strip USE TO CHECK GLUCOSE ONCE DAILY aspirin EC [address] Take 81 mg by mouth daily. atenolol 25 MG tablet Take 12.5 mg by mouth. escitalopram (Lexapro) 5 MG tablet Take 5 mg by mouth daily. levothyroxine 125 MCG tablet Take 125 mcg by mouth daily. lisinopril 5 MG tablet meloxicam 15 MG tablet metFORMIN-XR 500 MG Tab SR 24 HR multivitamin tablet Take 1 tablet by mouth daily. oxyCODONE-acetaminophen 5-325 MG per tablet Take 1 tablet by mouth every 6 hours as needed for up to 4 days. 12 tablet 0 Tamsulosin HCl 0.4 MG capsule Take 1 capsule by mouth daily. 7 capsule 0 No current facility-administered medications for this visit. family history includes Colorectal Cancer in her maternal grandfather; Depression in her father; Diabetes in her father and mother; Fainting in her father; GI Disease in her maternal grandmother; Heart Disease - Other in her father, paternal grandfather, and paternal grandmother; Heart Failure in her father; Hypertension in her father and mother; Kidney Disease in her mother; Lipid Disorder in her father and mother; Lung Cancer in her maternal grandfather; Other - Specify in her father. Past Medical History: Diagnosis Date Arrhythmia Atrial fibrillation Diabetes mellitus Type 2 Essential hypertension, benign Hyperlipidemia Hyperthyroidism Osteoarthritis Past Surgical History: Procedure Laterality Date TONSILLECTOMY ADENOIDECTOMY Social History Tobacco Use Smoking Status Never Smoker Smokeless Tobacco Never Used Social History Substance and Sexual Activity Alcohol Use Yes Comment: occ Physical Examination: Vital Signs: Smoking Status Never Smoker Constitutional: Oriented to person, place, and time. Appears well developed and well nourished. Eyes: conjunctiva/corneas clear, normal vision Ears/Nose/Mouth Eyes -EOMI. Ears - External normal ear. Hearing normal. Mouth - Lips normal color. Head/Neck: Face symmetrical, trachea midline, Head - Normocephalic. symmetrical. Normal ROM, neck supple. Pulmonary/chest: Normal respiratory effort, non-labored breathing. Abdominal/GI: Soft, non-tender, no organomegaly. Bowel sounds normal. Cardiovascular Normal rate and regular rhythm. No Murmurs or Rubs. Radial Pulses Normal. Circulation Normal. Neurologic: Alert and oriented x3. No focal neurological deficits noted. Extremities: No clubbing, cyanosis, or edema noted, no calf tenderness bilaterally. Skin: Warm and dry.Normal turgor, well-hydrated, no rashes noted. Psych: Normal mood and affect. Behavior is normal. [facility] Emergency department Note* Favio Kaiser, DO - 05/31/2021 5:17 PM EDT Emergency Department Report [facility] EMERGENCY DEPARTMENT Service Date:.05/31/21 PCP: Aaron Leigh Chief Complaint: Chief Complaint Patient presents with Flank Pain Right sided x 1 week worsening HPI Oswaldo Morel is a 35 y.o. female presents to the ED today due to The patient has right back pains that have been present for a week. When it started, she felt that she saw a little bit of blood in the urine. She went to one of the urgent cares. They obtained a urine and dipped it and they suggested that she might have infection. They placed on antibiotics. Afterseveral days, the culture was returned, and no bacteria grew area and he told her she may stop the antibiotics. She continues to have back pain. She cannot think of anything necessarily that triggered or caused it. She does not feel that its related to any specific injury that she can recall. Review of Systems: Right flank pain. Some blood in the urine. No frequency/urgency/hesitancy/pain/burning. No history of specific injury causing the back pain that she can recall. Review of Systems Past Medical History: Past Medical History: Diagnosis Date Arrhythmia Atrial fibrillation Diabetes mellitus Type 2 Essential hypertension, benign Hyperlipidemia Hyperthyroidism Osteoarthritis Past Surgical History: Past Surgical History: Procedure Laterality Date TONSILLECTOMY ADENOIDECTOMY Allergies: Allergies Allergen Reactions Bee Venom Swelling Seasonal Medications: Patient's Medications New Prescriptions No medications on file Previous Medications ACCU-CHEK FASTCLIX LANCETS MISC USE TO CHECK GLUCOSE ONCE DAILY ACCU-CHEK GUIDE STRIP STRIP USE TO CHECK GLUCOSE ONCE DAILY ASPIRIN EC [address] Take 81 mg by mouth daily. ATENOLOL 25 MG TABLET Take 12.5 mg by mouth. ESCITALOPRAM (LEXAPRO) 5 MG TABLET Take 5 mg by mouth daily. LEVOTHYROXINE 125 MCG TABLET Take 125 mcg by mouth daily. LISINOPRIL 5 MG TABLET MELOXICAM 15 MG TABLET METFORMIN-XR 500 MG TAB SR 24 HR MULTIVITAMIN TABLET Take 1 tablet by mouth daily. Modified Medications No medications on file Discontinued Medications No medications on file Family History: Family History Problem Relation Age of Onset Diabetes Mother Kidney Disease Mother Hypertension Mother Lipid Disorder Mother Heart Failure Father Heart Disease - Other Father Hypertension Father Lipid Disorder Father Other - Specify Father Fainting Father Depression Father Diabetes Father GI Disease Maternal Grandmother Lung Cancer Maternal Grandfather Colorectal Cancer Maternal Grandfather Heart Disease - Other Paternal Grandmother Heart Disease - Other Paternal Grandfather Social History: Social History Socioeconomic History Marital status: Single Spouse name: Not on file Number of children: Not on file Years of education: Not on file Highest education level: Not on file Occupational History Not on file Tobacco Use Smoking status: Never Smoker Smokeless tobacco: Never Used Vaping Use Vaping Use: Never used Substance and Sexual Activity Alcohol use: Yes Comment: occ Drug use: Never Sexual activity: Not Currently Other Topics Concern Service Not Asked Blood Transfusions Not Asked Caffeine Concern Not Asked Occupational Exposure Not Asked Hobby Hazards Not Asked Sleep Concern Not Asked Stress Concern Not Asked Weight Concern Not Asked Special Diet Not Asked Back Care Not Asked Exercise Not Asked Bike Helmet Not Asked Seat Belt Not Asked Domestic Violence No Social History Narrative Not on file Social Determinants of Health Financial Resource Strain: Difficulty of Paying Living Expenses: Food Insecurity: Worried About Running Out of Food in the Last Year: Ran Out of Food in the Last Year: Transportation Needs: Lack of Transportation (Medical): Lack of Transportation (Non-Medical): Physical Activity: Days of Exercise per Week: Minutes of Exercise per Session: Stress: Feeling of Stress : Social Connections: Frequency of Communication with Friends and Family: Frequency of Social Gatherings with Friends and Family: Attends Pentecostal Services: Active Member of Clubs or Organizations: Attends Club or Organization Meetings: Marital Status: Intimate Partner Violence: Fear of Current or Ex-Partner: Emotionally Abused: Physically Abused: Sexually Abused: Physical Exam: @PHYSICALEXAM@ Patient is awake alert and active. Vital signs were reviewed. Mental status is good. Heart is regular rate and rhythm. Lungs cannot demonstrate respiratory distress. Abdomen soft. I will sounds are present. Flank pain to palpation of the right flank. Back she appears be slightly below the flank as well. It almost seems to be more right paralumbar than actual flank/kidney in origin. Mucosa moist. Skin turgor good. Vital Signs During ED Visit Patient Vitals for the past 24 hrs: BP Temp Temp src Pulse Resp SpO2 Height 05/31/21 1628 1.626 m (5' 4) 05/31/21 1626 142/89 97.8 F (36.6 C) Oral 110 16 95 % Differential Diagnosis: Renal colic versus muscular back pain Orders/Results: Orders Placed This Encounter URINE CULTURE CT ABDOMEN/PELVIS WITHOUT CONTRAST HCG QUALITATIVE, URINE URINALYSIS URINE MICROSCOPIC Results for orders placed or performed during the hospital encounter of 05/31/21 HCG QUALITATIVE, URINE Result Value Ref Range HCG, QUALITATIVE, URINE NEGATIVE NEGATIVE URINALYSIS, MACRO Result Value Ref Range COLOR, URINE YELLOW YELLOW APPEARANCE, URINE CLEAR CLEAR SPECIFIC GRAVITY, URINE 1.020 1.010 - 1.025 PH URINE 6.0 5.0 - 7.0 PROTEIN, URINE NEGATIVE NEGATIVE mg/dl GLUCOSE, URINE NEGATIVE NEGATIVE mg/dl KETONES, URINE 15 (A) NEGATIVE mg/dl BILIRUBIN, URINE NEGATIVE NEGATIVE BLOOD, URINE DIPSTICK NEGATIVE NEGATIVE NITRITES, URINE POSITIVE (A) NEGATIVE UROBILINOGEN, URINE 0.2 0.2 - 1.0 E.U./dL LEUKOCYTE ESTERASE, URINE NEGATIVE NEGATIVE URINE MICROSCOPIC Result Value Ref Range WBC, URINE 1 TO 5 NEGATIVE /HPF RBC, URINE 1 TO 5 NEGATIVE /HPF Epithelial Cells UA 1 TO 5 /HPF Mucus NEGATIVE NEGATIVE BACTERIA, URINE TRACE (A) NEGATIVE CRYSTALS, URINE NONE NONE CASTS, URINE NONE NONE /LPF COMMENT, URINE REFLEX CULTURE PER ESTABLISHED CRITERIA. Radiographic Imaging CT ABDOMEN/PELVIS WITHOUT CONTRAST (Results Pending) Lab/Imaging Results Summary: The urinalysis is good. test is negative. The CAT scan the abdomen and the pelvis shows a 7.25 mm stone at the right ureterovesical junction.Mild hydronephrosis/hydroureter is evident. Moderate Sedation: Procedures: Procedures Progress Notes/Re-evaluation: Discharged ED Summary: Would like to go ahead and obtain a CAT scan of the abdomen and the pelvis to assess for renal stones. If that is negative, then were not looking at flank pains from the kidney but from muscular issues. Certainly the CAT scan might demonstrate other pathology. Patient has a large stone at the right ureterovesical junction. I went ahead and gave her dose of Flomax. She does not appear to be in extreme discomfort and I am going to send her home with a 4 packof Percocets that she does not have to have somebody come and pick her up as result of pain medication. I placed a consult on the computer for Dr. Robles. This stone is made it all way down to the ureterovesical junction and will likely pass into the bladder. Nonetheless, consult was placed with aurologist so that if it is not passing, procedure such as cystoscopy and stone retrieval might be required. I reviewed everything the patient. Answered all questions. Clinical Impression: Acute renal colic renal lithiasis right ureterovesical junction 7.25 mm stone obstructive uropathy No diagnosis found. No follow-ups on file. New Prescriptions No medications on file Discontinued Medications No medications on file An After Visit Summary was printed and given to the patient with above information. . Favio Kaiser DO 05/31/21 1825 [facility] History of Present illness Narrative* Lula High PA - 05/27/2021 12:05 PM EDT URGENT CARE eNCOUnter CHIEF COMPLAINT Urinary Pain (blood in urine, lower back pain.) DIANA Morel is a 35 y.o. female who presents today for complaint of dysuria and blood in her urinefor the past two days. Patient reports mild left flank pain that began this morning. Denies fever, nausea, vomiting, concern for STI. LMP was 2 weeks ago. REVIEW OF SYSTEMS Review of Systems Constitutional: Negative for chills, fatigue and fever. HENT: Negative for congestion, sore throat and trouble swallowing. Eyes: Negative for visual disturbance. Respiratory: Negative for cough, chest tightness and shortness of breath. Cardiovascular: Negative for chest pain. Gastrointestinal: Negative for abdominal pain, nausea and vomiting. Genitourinary: Positive for dysuria, flank pain, hematuria and pelvic pain. Negative for frequency. Musculoskeletal: Negative for back pain and neck pain. Skin: Negative for rash. Neurological: Negative for dizziness and weakness. All other systems reviewed and are negative. PAST MEDICAL HISTORY Past Medical History: Diagnosis Date Arrhythmia Atrial fibrillation Essential hypertension, benign Hyperlipidemia Hyperthyroidism Osteoarthritis SURGICAL HISTORY Past Surgical History: Procedure Laterality Date TONSILLECTOMY ADENOIDECTOMY CURRENT MEDICATIONS Current Outpatient Medications Medication Sig Dispense Refill Accu-Chek FastClix Lancets Misc USE TO CHECK GLUCOSE ONCE DAILY Accu-Chek Guide Strip strip USE TO CHECK GLUCOSE ONCE DAILY ASHWAGANDHA PO Take 600 mg by mouth 2 times daily. KSM-66 aspirin EC [address] Take 81 mg by mouth daily. atenolol 25 MG tablet Take 12.5 mg by mouth. levothyroxine 125 MCG tablet Take 125 mcg by mouth daily. lisinopril 5 MG tablet meloxicam 15 MG tablet metFORMIN-XR 500 MG Tab SR 24 HR methylPREDNIsolone 4 MG Tab Therapy Pack tablet Take as directed PO 21 tablet 0 multivitamin tablet Take 1 tablet by mouth daily. mupirocin 2 % ointment Apply topical TID for 7 days 30 g 0 nitrofurantoin, macrocrystal-monohydrate, 100 MG capsule Take 1 capsule by mouth 2 times daily for 5 days. Take w/ food/milk 10 capsule 0 No current facility-administered medications for this visit. ALLERGIES Allergies Allergen Reactions Bee Venom Swelling Seasonal FAMILY HISTORY Family History Problem Relation Age of Onset Diabetes Mother Kidney Disease Mother Hypertension Mother Lipid Disorder Mother Heart Failure Father Heart Disease - Other Father Hypertension Father Lipid Disorder Father Other - Specify Father Fainting Father Depression Father Diabetes Father GI Disease Maternal Grandmother Lung Cancer Maternal Grandfather Colorectal Cancer Maternal Grandfather Heart Disease - Other Paternal Grandmother Heart Disease - Other Paternal Grandfather SOCIAL HISTORY Social History Socioeconomic History Marital status: Single Spouse name: Not on file Number of children: Not on file Years of education: Not on file Highest education level: Not on file Occupational History Not on file Tobacco Use Smoking status: Never Smoker Smokeless tobacco: Never Used Vaping Use Vaping Use: Never used Substance and Sexual Activity Alcohol use: Yes Comment: occ Drug use: Never Sexual activity: Not Currently Other Topics Concern Service Not Asked Blood Transfusions Not Asked Caffeine Concern Not Asked Occupational Exposure Not Asked Hobby Hazards Not Asked Sleep Concern Not Asked Stress Concern Not Asked Weight Concern Not Asked Special Diet Not Asked Back Care Not Asked Exercise Not Asked Bike Helmet Not Asked Seat Belt Not Asked Domestic Violence No Social History Narrative Not on file Social Determinants of Health Financial Resource Strain: Difficulty of Paying Living Expenses: Food Insecurity: Worried About Running Out of Food in the Last Year: Ran Out of Food in the Last Year: Transportation Needs: Lack of Transportation (Medical): Lack of Transportation (Non-Medical): Physical Activity: Days of Exercise per Week: Minutes of Exercise per Session: Stress: Feeling of Stress : Social Connections: Frequency of Communication with Friends and Family: Frequency of Social Gatherings with Friends and Family: Attends Pentec[employer]al Services: Active Member of Clubs or Organizations: Attends Club or Organization Meetings: Marital Status: Intimate Partner Violence: Fear of Current or Ex-Partner: Emotionally Abused: Physically Abused: Sexually Abused: PHYSICAL EXAM BP 141/86 (BP Location: Right arm, BP Position: Sitting) Pulse 86 Temp 97.7 F (36.5 C) (Temporal) Resp 16 Ht 1.626 m (5' 4) Wt 115.3 kg (254 lb 3.2 oz) SpO2 98% BMI 43.63 kg/m Smoking Status Never Smoker Physical Exam General exam: Patient is well-developed and well-nourished in no distress. Patient does not appear acutely ill or toxic. Eye exam: Lids and conjunctivae are normal ENT exam: head and facial exam is normal. Pulmonary exam: No respiratory distress. Respiratory rate is normal. No stridor. Breath sounds are equal bilaterally. There are no wheezes, rales, or rhonchi noted. Cardiac exam: The cardiac rate and rhythm are normal. No significant murmurs, rubs, or gallops. Peripheral pulses are normal. Abdominal exam: Abdomen is soft and nondistended. No pulsatile masses. There is no local tenderness. No rebound or guarding noted. + minimal left CVA tenderness. Skin and soft tissue: Skin is warm and dry, without significant abnormality. Good color. Musculoskeletal exam: There is no peripheral edema. Musculoskeletal exam of the lower extremities is normal without significant focal tenderness or spasm. Neurologic: Patient is alert and appropriate. Psychiatric: Normal adult with appropriate demeanor and interpersonal interaction. Is oriented to person, place, and time. Diagnosis, Assessment & Plan: Oswaldo was seen today for urinary pain. Diagnoses and all orders for this visit: Acute cystitis with hematuria Dysuria - POCT URINALYSIS DIPSTICK NON AUTOMATED - URINE CULTURE; Future Other orders - nitrofurantoin, macrocrystal-monohydrate, 100 MG capsule; Take 1 capsule by mouth 2 times daily for 5 days. Take w/ food/milk 35 yo female presents with dysuria x 2-3 days. Ortez-fa-pqtl urine shows trace leukocytes and moderate blood. Urine culture is pending. Patient will be started on Macrobid today. Advised to return ifany new or worsening symptoms. If urine culture shows no evidence of bacterial patient should be advised to stop the antibiotic. JULIO Marsh 05/27/2021 [facility] Inst[facility]* Patient Instructions* Lula High PA - 05/27/2021 12:05 PM EDT Images from the original note were not included. Urinary Tract Infection (UTI) in Women: Care Instructions Overview A urinary tract infection, or UTI, is a general term for an infection anywhere between the kidneys and the urethra (where urine comes out). Most UTIs are bladder infections. They often cause pain or burning when you urinate. UTIs are caused by bacteria and can be cured with antibiotics. Be sure to complete your treatment so that the infection does not get worse. Follow-up care is a craig part of your treatment and safety. Be sure to make and go to all appointments, and call your doctor if you are having problems. It's also a good idea to know your test resultsand keep a list of the medicines you take. How can you care for yourself at home? Take your antibiotics as directed. Do not stop taking them just because you feel better. You need to take the full course of antibiotics. Drink extra water and other fluids for the next day or two. This will help make the urine less concentrated and help wash out the bacteria that are causing the infection. (If you have kidney, heart, or liver disease and have to limit fluids, talk with your doctor before you increase the amount of fluids you drink.) Avoid drinks that are carbonated or have caffeine. They can irritate the bladder. Urinate often. Try to empty your bladder each time. To relieve pain, take a hot bath or lay a heating pad set on low over your lower belly or genital area. Never go to sleep with a heating pad in place. To prevent UTIs Drink plenty of water each day. This helps you urinate often, which clears bacteria from your system. (If you have kidney, heart, or liver disease and have to limit fluids, talk with your doctor before you increase the amount of fluids you drink.) Urinate when you need to. If you are sexually active, urinate right after you have sex. Change sanitary pads often. Avoid douches, bubble baths, feminine hygiene sprays, and other feminine hygiene products that havedeodorants. After going to the bathroom, wipe from front to back. When should you call for help? Call your doctor now or seek immediate medical care if: Symptoms such as fever, chills, nausea, or vomiting get worse or appear for the first time. You have new pain in your back just below your rib cage. This is called flank pain. There is new blood or pus in your urine. You have any problems with your antibiotic medicine. Watch closely for changes in your health, and be sure to contact your doctor if: You are not getting better after taking an antibiotic for 2 days. Your symptoms go away but then come back. Where can you learn more? Go to http://www.[employer].edu/patiented. Enter K848 in the search box to learn more about 'Urinary Tract Infection (UTI) in Women: Care Instructions.' Interested in seeing a video go to [email or web address].edu/videolibrary to see all video content. Current as of: January 09, 2021 Content Version: 12.9 [employer]. Care instructions adapted under license by your healthcare professional. If you have questions about a medical condition or this instruction, always ask your healthcare professional. [employer] disclaims any warranty or liability for your use of this information. [facility] History of Present illness Narrative* Piero Kendra Adamaris, RD - 04/15/2021 4:31 PM EDT Patient Name: Oswaldo Morel Patient : 1985 Primary Care Provider: Aaron Leigh MD Referred By: Aaron Leigh MD Referral Diagnosis: Diabetes Type 2 Met with pt via telehealth video visit. Pt consented to treatment. Start Time: 1600 End Time: 1630 Nutrition Diagnosis: Excessive energy intake related to food and nutrition related knowledge deficit as evidenced by diet history and self reported weight change. Nutrition Goals: I will increase the frozen vegetables in the fridge to increase my intake. I will freeze ahead meals so when I get busy I can pull them out. I will join [employer] and exercise for 150 minutes a week. Follow Up: Contact information provided for additional questions Assessment: Pt reports was finishing exams and stressed for 2 weeks resulting in wt gain to 261#. Pt reports exams are over and she is working again on diet and exercise but school starts back up this summer. Discussed ways to plan ahead for busier schedule to help with stress eating. Pt states sheis currently watching CHO intake for the goal of 135g/day and feels she does well with this now. Pre viously she was snacking more and with larger portions leading to the wt gain. Reason for Visit: DM/wt loss Support Person Present: none Height: 64 Current Weight: 261# BMI: 45-class III obesity Weight History: Pt reporting wt gain 4# since last visit Wt Readings from Last 5 Encounters: 04/10/21 113.4 kg (250 lb) 05/09/20 113.4 kg (250 lb) 12/27/19 113.4 kg (250 lb) 12/20/19 113.4 kg (250 lb) 12/20/19 113.4 kg (250 lb) Diet History/Recall: 3 meals with snacks Food Purchase/Prep: self Breakfast: oatmeal with light yogurt and black coffee Lunch: veggie stir romero Dinner: pork loin with GF noodles and broccoli with butter Snacks: yogurt Daily Fluids: water, one diet pop, coffee-black Meals Away From Home: was eating out more but has stopped PMHx: Past Medical History: Diagnosis Date Atrial fibrillation (HCC) Disease of thyroid gland Hypertension Osteoarthritis osteoarthritis Current/Pertinent Medications: no changes noted Lab Values: SMBG FBS 135-150 most recently Lab Results Component Value Date HGBA1C 7.1 (H) 03/01/2021 HGBA1C 6.9 (H) 07/07/2020 HGBA1C 5.9 (H) 09/06/2019 Lab Results Component Value Date CHOL 240 (H) 03/01/2021 CHOL 226 (H) 07/07/2020 Lab Results Component Value Date TRIG 365 (H) 03/01/2021 TRIG 350 (H) 07/07/2020 Lab Results Component Value Date HDL 36 (L) 03/01/2021 HDL 34 (L) 07/07/2020 No results found for: LDL Nutrition Focused Physical Findings: Current Activity Level: Lightly Active- walking dogs Estimated Nutritional Needs: Calorie Needs: 1800 (see assessment) Intervention/Education Provided: Planning ahead for meals/freezing leftovers, exercise, stress eating Patient/Family Education: Learner: patient Readiness: contemplation - ambivalent about change Method: explanation Response: verbalizes understanding Education Materials Provided: no new- goal sheet emailed Monitoring/Evaluation: Weight, Food Record/Recall, Meal Planning, Physical Activity, Medication Management, Goal Assessment This note has been communicated to referring healthcare provider. Kendra Harry RDN, LD Office documented in this [id number] History of Present illness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 Favio Kaiser DO [address] [place] [address] Juan Dominique MD [address] [facility] [address] [place] [address] Electronically signed by [facility] (n[facility]ative[facility] Consultation (Routine) - New Request Specialty Diagnoses / Procedures Referred By Rey oseguera Referred To Contact Endocrinology, Diabetes & Metabolism Diagnoses Hypothyroidism (acquired) Type 2 diabetes mellitus with hyperglycemia, without long-term current use of insulin Elisabeth Gregg APRN-MARBELLA [address] [place] [address] Krystal Ricci, VICE PRESIDENT [employer] [address] [place] [address] Referral ID Status Reason Start Date Expiration Date V isits Requested Visits Authorized [id number] New Request 02/24/2024 03/20/2025 1 1 * MRI/CAT Scan (Emergency) - Closed Specialty Diagnoses / Procedures Referred By Rey oseguera Referred To Contact Computerized Tomography Scan Diagnoses Kidney stone Gross hematuria Procedures CT ABDOMEN/PELVIS WITHOUT CONTRAST CHG CT SCAN,ABDOMENT AND PELVIS,W/O CONTRAST Elisabeth Gregg APRN-CNP [address] [place] [id number] [facility] [address] Scan [address] [place] [address] Referral ID Status Reason Start Date Expiration Date Visits Re quested Visits Authorized [id number] Closed 02/24/2024 03/20/2025 1 1 [facility] for referral (narrative)* Consultation (Routine) - New Request Specialty Diagnoses / Procedures Referred By Rey oseguera Referred To Contact Podiatry Diagnoses Type 2 diabetes mellitus with hyperglycemia, without long-term current use of insulin Jesus Alvarez CNP [address] [place] [address] Brit García, AMADEO [address] [place] [address] Referral ID Status Reason Start Date Expiration Date V isits Requested Visits Authorized [id number] New Request 04/14/2024 05/09/2025 1 1 * Adjunctive Therapy (Routine) - New Request Specialty Diagnoses / Procedures Referred By Rey oseguera Referred To Contact Nutrition and Dietetics Diagnoses Type 2 diabetes mellitus with hyperglycemia, without long-term current use of insulin Jesus Alvarez CNP [address] [place] [address] Referral ID Status Reason Start Date Expiration Date V isits Requested Visits Authorized [id number] New Request 04/14/2024 05/09/2025 1 1 * Adjunctive Therapy (Routine) - New Request Specialty Diagnoses / Procedures Referred By Rey oseguera Referred To Contact Endocrinology, Diabetes & Metabolism Diagnoses Type 2 diabetes mellitus with hyperglycemia, without long-term current use of insulin Jesus Alvarez CNP [address] [place] [address] Millicent Sue RN Referral ID Status Reason Start Date Expiration Date V isits Requested Visits Authorized [id number] New Request 04/14/2024 05/09/2025 1 1 Scheduling Instructions . [facility] for referral (narrative)* Consultation (Urgent) - New Request Specialty Diagnoses / Procedures Referred By Contac t Referred To Contact Otolaryngology Diagnoses Acute right otitis media Acute maxillary sinusitis, recurrence not specified Gaurang Crowley APRN-CNP [address] [place] [address] Robson Genao MD [address] [place] [id number] Referral ID Status Reason Start Date Expiration Date V isits Requested Visits Authorized [id number] New Request 12/07/2023 12/31/2024 1 1 [facility] for referral (narrative)No reason for referral information [facility]WC[facility] Work Phone: [facility] Narrative* Evaluate and Treat (Routine) - Authorized Specialty Diagnoses / Procedures Referred By Contac t Referred To Contact Nutrition Diagnoses Type 2 diabetes mellitus with hyperglycemia, without long-term current use of insulin (HCC) Jesus Alvarez CNP [address] [facility] [address] [place] [address] Phone: tel: fax: [facility] [address] [place] [phone] Phone: tel: fax: Referral ID Status Reason Start Date Expiration Date V isits Requested Visits Authorized [id number] Authorized 05/27/2024 05/27/2025 4 4 [facility] for visit Narrative* Evaluate and Treat (Routine) - Authorized Specialty Diagnoses / Procedures Referred By Contac t Referred To Contact Nutrition Diagnoses Type 2 diabetes mellitus with hyperglycemia, without long-term current use of insulin (HCC) Jesus Alvarez CNP [address] [facility] [address] [place] [address] Phone: tel: fax: [facility] [address] [place] [address] Phone: tel: fax: Referral ID Status Reason Start Date Expiration Date V isits Requested Visits Authorized [id number] Authorized 05/27/2024 05/27/2025 6 6 [facility] for visit Narrative* Radiology (Routine) - Closed Specialty Diagnoses / Procedures Referred By Contac t Referred To Contact Diagnoses Kidney stone Procedures US RENAL RETROPERITONEAL Siddharth Elisabeth Adamaris, MEMBER SERVICES COORDINATOR-VICE PRESIDENT [employer] Phone: tel: Referral ID Status Reason Start Date Expiration Date Visits Re quested Visits Authorized [id number] Closed 01/29/2024 02/22/2025 1 1 [facility] Summary Purpose Family History No Family History Records Found Relationship Condition Age at Onset Recorded Date/T jose d grandfather Malignant neoplasm of colon Unknown Malignant neoplasm Unknown father Hypertension Unknown Cardiac disease Unknown Diabetes mellitus Unknown mother Myocardial infarction Unknown Hypertension Unknown brother Myocardial infarction Unknown Advance Directives No Advanced Directives Records FoundDocuments on File Type Date Recorded 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 Advanced Expl anation Advance Directives and Livin g Will 08/24/2019 11:06 AM Documents on File Type Date Recorded 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 Advanced Expl anation Advance Directives and Livin g Will 08/24/2019 11:06 AM Documents on File Type Date Recorded 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 Advanced Expl anation Advance Directives and Livin g Will 10/12/2019 12:22 PM Documents on File Type Date Recorded 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 Advanced Expl anation Advance Directives and Livin g Will 10/12/2019 12:22 PM Documents on File Type Date Recorded 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 Advanced Expl anation Advance Directives and Livin g Will 12/20/2019 7:14 PM Documents on File Type Date Recorded 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 Advanced Expl anation Advance Directives and Livin g Will 01/02/2020 7:54 AM Documents on File Type Date Recorded 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 Advanced Expl anation Advance Directives and Livin g Will 01/02/2020 7:54 AM Documents on File Type Date Recorded 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 Advanced Expl anation Advance Directives and Livin g Will 04/15/2021 4:49 PM Documents on File Type Date Recorded 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 Advanced Expl anation Advance Directives and Livin g Will 04/15/2021 4:49 PM History of Present Illness * Priscilla Hill, PT - 09/07/2019 2:30 PM EDT [facility] Evaluation Today's Date 09/07/2019 Patient Name: Oswaldo Morel Date of : 1985 Case Name: Cervical Radiculopathy/ Riht Shoulder Pain Functional Diagnosis: 1. Cervical radiculopathy 2. Chronic right shoulder pain Clinical Information: Subjective Referring Diagnosis: Right Shoulder/neck pain History of Present Illness Chief Complaint/ Mechanism of Injury: Patient reports she fell a month ago off a step stool and hitcounter on right ribs, elbow and caused her whole right side to go out. Went to Urgent Care and hadxrays taken and nothing was broken. Followed up with family doctor 2 weeks later and was referred to [facility]. 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 Having a lot of headaches due to neck and shoulder pain. Is getting an EMG next week due to concerns of nerve damage. Unable to work out at the gym due to pain. Previous Treatment for this condition: Chiropractic and Injections Prior treatment effectiveness: mild Previous Imaging: X-ray Status: unchanged Hand dominance: right Pain Scale: Average Pain: 5/10 Pain at highest: 8/10 Aggravating factors: repetitive motion, cold weather, sitting and reading, doing housework Easing factors: takes pain meds to dull it Red Flags: None Barriers to Care: None Fall risk screening Fallen 2 or more times in the last 12 months: No Injured as a result of a fall in the last 12 months: No Personal Goals: Ease pain and get ROM back in neck. Social History Pentecostal, social, or cultural considerations to be made aware of before starting treatment: No Cervical Spine: Tenderness: upper trapezius and spinous process tenderness Range of Motion - Cervical Protraction Loss: 25% Retraction Loss: 50% Flexion Loss: 25% Extension Loss: 50% Rt Rotation Loss: 25% Lt Rotation Loss: 25% Rt Side Bend Loss: 25% Lt. Side Bend Loss: 25% Muscle Strength Right: WFL Left: WFL Special Tests Compression/ Distraction: Positive Other Findings Sensation: normal Additional Cervical Findings:Tender to touch anterior right shoulder in bicipital groove. Better with distraction. Treatments: Physical Therapy Exercise Log - 09/07/19 6052 OTHER Notes Right Shoulder/Cervical Pain Therapeutic Exercise (06595) Intervention Standing cervical retraction 10 times Parameters Wall flexion stretch 10 times R arm, shoulder rolls Intervention Counter stretch 10 times PT Treatment Times Total Treatment Time 45 Treatment Plan: Frequency of Visits: 3 times per week Duration: 6 weeks Interventions: Therapeutic Exercise and Manual Therapy Rehab Potential: good Goals: Physical Therapy Ortho Goals: The patient will have full shoulder and neck ROM without pain within 6 weeks. The patient will be able to work full duty without shoulder pain. The patient will be able to return to normal exercises routine demonstrating normal shoulder function. Patient Education provided: Patient given written home program. Clinical Impression: The patient will benefit from ROM exercises to improve shoulder and neck function. Priscilla Hill PT State [place], [id number] documented in this encounter* Bill Arboleda MD - 09/13/2019 11:02 AM EDT Procedures ELECTROMYOGRAPHY (Nerve conduction test/EMG) Brief History: Describe months of neck and bilateral shoulder pain. She also has bilateral hand numbness and paresthesias. She is prediabetic and takes metformin. Plan: This study is design to evaluate for entrapment neuropathy, median or ulnar neuropathy, radiculopathy, or brachial plexopathy. Procedure indication, side effects, complications, risk and alternatives were explain. Patient agreed to proceed with verbal consent obtain. Patient was instructed toclean the puncture site with soap and water and put some ice pack for bruising. Please request raw data if needed. EMG Summary: The bilateral median and ulnar motor and sensory nerve conduction studies were normal.The bilateral radial, medial and lateral antebrachial cutaneous sensory nerve conduction studies were also normal. Needle EMG of the tested muscle showed no abnormal spontaneous activity. Normal motor unit action potentials and recruitment patterns were seen. Impression: This is a normal EMG. There is NO clear electrodiagnostic evidence of a bilateral cervical radiculopathy, brachial plexopathy, entrapment neuropathy, median or ulnar neuropathy at this time. documented in this encounter* Bill Arboleda MD - 09/13/2019 11:02 AM EDT Procedures ELECTROMYOGRAPHY (Nerve conduction test/EMG) Brief History: Describe months of neck and bilateral shoulder pain. She also has bilateral hand numbness and paresthesias. She is prediabetic and takes metformin. Plan: This study is design to evaluate for entrapment neuropathy, median or ulnar neuropathy, radiculopathy, or brachial plexopathy. Procedure indication, side effects, complications, risk and alternatives were explain. Patient agreed to proceed with verbal consent obtain. Patient was instructed toclean the puncture site with soap and water and put some ice pack for bruising. Please request raw data if needed. EMG Summary: The bilateral median and ulnar motor and sensory nerve conduction studies were normal.The bilateral radial, medial and lateral antebrachial cutaneous sensory nerve conduction studies were also normal. Needle EMG of the tested muscle showed no abnormal spontaneous activity. Normal motor unit action potentials and recruitment patterns were seen. Impression: This is a normal EMG. There is NO clear electrodiagnostic evidence of a bilateral cervical radiculopathy, brachial plexopathy, entrapment neuropathy, median or ulnar neuropathy at this time. documented in this encounter* Shahida Gray PTA - 09/14/2019 4:00 PM EDT [facility] OUT[facility]IENT REHABIL[facility]ATION DAILY TREATMENT NOTE Today's Date 09/14/2019 Patient Name: Oswaldo Morel Date of : 1985 Current Visit #: 2 Authorized Visits: 25 Case Name: Cervical Radiculopathy/ Riht Shoulder Pain History: Pre-Treatment Pain Scale: 5 Symptoms: slightly more since evaluation Functional Diagnosis: 1. Acute pain of right shoulder Clinical Information: Subjective: Patient reports she had her EMG and is a little sore from that. No problems with HEP. Objective Patient completed exercises as charted. Instructed in cervical range of motion and shoulder isometrics. Treatments: Physical Therapy Exercise Log - 09/14/19 9319 OTHER Notes Right Shoulder/Cervical Pain Therapeutic Exercise (40706) Intervention Standing cervical retraction 10 times Parameters Wall flexion stretch 10 times R arm, shoulder rolls Intervention Counter stretch 10 times Parameters Cervical range of motion x 10 each Intervention shoulder isometrics flex, ext, abd 5 x 10 PT Treatment Times Therex Total Time 35 Direct Treatment Time 35 Total Treatment Time 35 Goals: Physical Therapy Ortho Goals: The patient will have full shoulder and neck ROM without pain within 6 weeks. The patient will be able to work full duty without shoulder pain. The patient will be able to return to normal exercises routine demonstrating normal shoulder function. Patient Education: Written HEP with patient demonstrated understanding. Post-Treatment Pain Scale: 4 Assessment: Patient had an expected response to treatment. Skilled Intervention demonstrated by modifications of treatment per exercise log including increased intensity and assessment of patient's response and safety interventions per exercise log. Progress towards goals as expected. Plan for Next Visit: Treatment Visit with focus on range of motion and strength per patient tolerance. Shahida Gray PTA STATE LICENSE, [id number] documented in this encounter* Priscilla Hill, PT - 09/19/2019 2:30 PM EDT [facility] OUTPATIENT REHABILITATION DAILY TREATMENT NOTE Today's Date 09/19/2019 Patient Name: Oswaldo Morel Date of : 1985 Current Visit #: 4 Authorized Visits: 25 Case Name: Cervical Radiculopathy/ Riht Shoulder Pain History: Pre-Treatment Pain Scale: 2 Symptoms: gradually improved Functional Diagnosis: 1. Acute pain of right shoulder Clinical Information: Subjective: Had nerve conduction test and was normal. Concerned she may have carpal tunnel. Objective Worked on usability through the shoulders and cervical ROM. Decrease soft tissue tightness in cervical aread after treatment. Treatments: Physical Therapy Exercise Log - 09/19/19 1436 OTHER Notes Right Shoulder/Cervical Pain Therapeutic Exercise (01234) Intervention Standing cervical retraction 10 times Parameters Wall flexion stretch 10 times R arm, shoulder rolls Intervention Counter stretch 10 times Parameters Cervical range of motion x 10 each Intervention shoulder isometrics flex, ext, abd 5 x 10 Parameters levator stretches R side x5 Intervention Scapular elevation/depression 10 times at wall with yellow ball. Parameters shoulder stability with bal on wall up and down, side to side 10 times Manual Therapy (87915) Intervention suboccipital release and STM 10 Goals: Physical Therapy Ortho Goals: The patient will have full shoulder and neck ROM without pain within 6 weeks. The patient will be able to work full duty without shoulder pain. The patient will be able to return to normal exercises routine demonstrating normal shoulder function. Patient Education: Quality of movement with patient demonstrated understanding. Post-Treatment Pain Scale: 2 Assessment: Patient had an expected response to treatment. Skilled Intervention demonstrated by modifications of treatment per exercise log including increased load and safety interventions per exercise log. Progress towards goals as expected. Plan for Next Visit: Treatment Visit with focus on decreasing upper extremity symptoms. Priscilla Hill PT State License, [id number] documented in this encounter* Priscilla Hill, PT - 09/21/2019 2:30 PM EDT [facility] OUTPATIENT REHABIL[facility]ATION DAILY TREATMENT NOTE Today's Date 09/21/2019 Patient Name: Oswaldo Morel Date of : 1985 Current Visit #: 5 Authorized Visits: 25 Case Name: Cervical Radiculopathy/ Riht Shoulder Pain History: Pre-Treatment Pain Scale: 2 Symptoms: gradually improved Functional Diagnosis: 1. Acute pain of right shoulder Clinical Information: Subjective: Patient reports less tightness into right side of her neck, but still has pain in the anterior right shoulder. Objective Worked on lateral neck stretch on table holding on to side of table with right hand. Patient able to tolerate manual traction to neck with decrease tightness noted at end range. Patient still has tightness in right upper trap. Treatments: Physical Therapy Exercise Log - 09/21/19 1442 OTHER Notes Right Shoulder/Cervical Pain Therapeutic Exercise ([id number]) Intervention Standing cervical retraction 10 times Parameters Wall flexion stretch 10 times R arm, shoulder rolls Intervention Counter stretch 10 times Parameters Cervical range of motion x 10 each Intervention shoulder isometrics flex, ext, abd 5 x 10 Parameters levator stretches R side x5 Intervention Scapular elevation/depression 10 times at wall with yellow ball. Parameters shoulder stability with bal on wall up and down, side to side 10 times Manual Therapy (86141) Intervention suboccipital release and STM 10 minutes PT Treatment Times Therex Total Time 15 Manual Therapy Total Time 15 Direct Treatment Time 30 Total Treatment Time 30 Goals: Physical Therapy Ortho Goals: The patient will have full shoulder and neck ROM without pain within 6 weeks. The patient will be able to work full duty without shoulder pain. The patient will be able to return to normal exercises routine demonstrating normal shoulder function. Patient Education: Quality of movement with patient demonstrated understanding. Post-Treatment Pain Scale: 2 Assessment: Patient had an expected response to treatment. Skilled Intervention demonstrated by modifications of treatment per exercise log including increased load and safety interventions per exercise log. Progress towards goals as expected. Plan for Next Visit: Treatment Visit with focus on add UBE. Priscilla Hill PT State License, [id number] documented in this encounter* Antwon Martin CNP - 09/28/2019 3:15 PM EDT OFFICE NOTE [facility] [address] ([address]) [facility] [address] [facility] [id number] Physicians: Aaron Leigh MD (Family); No ref. provider found (Referring) Subjective: Oswaldo Morel is a 33 y.o. female seen in the office today for Follow-up of the Spine and Follow-up (POST EMG NECK) . HPI: Shoulder Pain Patient complains of right shoulder pain.The symptoms began several months ago. She has history of right shoulder pin and treatment 4 years ago, but she re injured after fall onto kitchen counter middle of June. Pain is from shoulder down her arm and causes numbness and tingling into her right hand. Aggravating factors: injury while falling in kitchen. Pain is located anterior, lateral, neck, down arm . Discomfort is described as aching, numbness, sharp/stabbing and tingling. Symptoms are exacerbated by repetitive movements, overhead movements and lying on the shoulder. She also complains of occipital headaches and intrascapular burning. She has dropped her coffee cup and is still having numbness in hands. Again emg is negative. This is evaluated as a personal injury. Evaluation to date: none. Therapy to date includes: rest, avoidance of offending activity and OTC analgesics which are not very effective. Cervical Spine Exam: ROM c-spine not limited +/- Paraspinal TTP + Bony TTPC5 - T8 Sensation grossly normal C5 - T1 Motor grossly normal DTR's UE's +2/4 symmetric +Spurling's Maneuver - Martinez's Sign X-Rays: Office films, Cervical 2 Views. Degenerative disc disease and Loss of curvature seen at level:C6 and C7. Possibly due to spasms. Assessment & Plan: MRI cervical spine Follow Up Ordered: Return in about 2 weeks (around 10/12/2019). Histories: Past Medical History: Diagnosis Date Atrial fibrillation (HCC) Disease of thyroid gland Hypertension Osteoarthritis Past Surgical History: Procedure Laterality Date ADENOIDECTOMY TOE SURGERY MRSA TONSILLECTOMY History reviewed. No pertinent family history. Social History Tobacco Use Smoking status: Never Smoker Smokeless tobacco: Never Used Substance Use Topics Alcohol use: Never Frequency: Never Drug use: Never Outpatient Medications as of 09/28/2019 Medication Sig atenolol (TENORMIN) 25 MG tablet Take 12.5 mg by mouth . levothyroxine (SYNTHROID, LEVOTHROID) 112 MCG tablet Take 112 mcg by mouth . lisinopril (PRINIVIL,ZESTRIL) 5 MG tablet meloxicam (MOBIC) 15 MG tablet metFORMIN (GLUCOPHAGE-XR) 500 MG 24 hr tablet TENA'S WORT ORAL Take by mouth . Allergies Allergen Reactions Bee Venom Protein (Honey Bee) Swelling Review of Systems Constitutional: Negative for chills, diaphoresis and fever. Respiratory: Negative for shortness of breath. Cardiovascular: Negative for chest pain, palpitations and leg swelling. Genitourinary: Negative for frequency and urgency. Musculoskeletal: Positive for arthralgias and myalgias. Skin: Negative for color change, rash and wound. Neurological: Negative for dizziness, syncope and weakness. Psychiatric/Behavioral: Negative for agitation. The patient is not nervous/anxious. Overview of Problems Addressed: No problems updated. Objective: Vitals: BP 138/75 Pulse 85 Ht 5' 4 Wt 109.3 kg (241 lb) BMI 41.37 kg/m Physical Exam Constitutional: She is oriented to person, place, and time. She appears well- developed and well-nourished. HENT: Head: Normocephalic and atraumatic. Eyes: Pupils are equal, round, and reactive to light. Neck: Normal range of motion. Neck supple. Cardiovascular: Normal rate and regular rhythm. Pulmonary/Chest: Effort normal and breath sounds normal. Abdominal: Soft. Bowel sounds are normal. Musculoskeletal: General: Tenderness present. Neurological: She is alert and oriented to person, place, and time. She has normal reflexes. Skin: Skin is warm and dry. EMG done: Shoulder specific exam: Impingement EMG Summary: The bilateral median and ulnar motor and sensory nerve conduction studies were normal.The bilateral radial, medial and lateral antebrachial cutaneous sensory nerve conduction studies were also normal. No diagnosis found. Antwon Martin CNP documented in this encounter* Priscilla Hill, PT - 09/30/2019 4:00 PM EDT [facility] OUTPATIENT REHABILITATION DAILY TREATMENT NOTE Today's Date 09/30/2019 Patient Name: Oswaldo Morel Date of : 1985 Current Visit #: 9 Authorized Visits: 25 Case Name: Cervical Radiculopathy/ Riht Shoulder Pain History: Pre-Treatment Pain Scale: 2 Symptoms: gradually improved Functional Diagnosis: 1. Acute pain of right shoulder Clinical Information: Subjective: Patient states she is waiting to get MRI scheduled to see what is wrong with arm. Had episode of thumb going numb today. Objective Patient able to progress with resisted shoulder exercises using good posture. Less tightness with manual cervical traction. Treatments: Physical Therapy Exercise Log - 09/30/19 1602 OTHER Notes Right Shoulder/Cervical Pain Therapeutic Exercise (40968) Intervention Standing cervical retraction 10 times Parameters Wall flexion stretch 10 times R arm, shoulder rolls Intervention Counter stretch 10 times Parameters Cervical range of motion x 10 each Intervention shoulder isometrics flex, ext, abd 5 x 10 Parameters levator stretches R side x5 Intervention Scapular elevation/depression 10 times at wall with yellow ball. Parameters shoulder stability with bal on wall up and down, side to side 10 times Intervention mB woodchopping and chest press 2# 10 times Parameters Arm swings with 2# weights Intervention Supine chest press, overhead flexion and ER with 4# bar 10 times each Parameters GTB scap retraction, shld ext, IR 10 times each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 free) per 200 units. Muscle Units / Inj Vol / Inj # of Inj Total Units Total Vol L. Splenius Capitis 7.5 0.2 ml 2 15 0.2 ml R. Splenius Capitis 7.5 0.2 ml 2 15 0.2 ml L. Levator Scapulae 25 0.4 ml 2 50 0.4 ml R. Levator Scapulae 2 0.4 ml 2 50 0.4 ml L. Trapezius 25 0.5 ml 2 50 0.5 ml R. Trapezius 25 0.5 ml 2 50 0.5 ml Other: 0.0 ml 0 0.0 ml Total Amount Administered 230 3.85 ml Waste units: 170 u Total Amount Used 230 4.0 ml The following portions of the patient's history were reviewed and updated as appropriate: allergies, current medications, past surgical history and problem list. Objective: BP 125/85 Pulse 94 Ht 5' 4 Wt 113.4 kg (250 lb) BMI 42.91 kg/m Imaging from this visit: No results found. Assessment/Plan: 1. Cervical dystonia No follow-ups on file. Antwon Martin CNP 12/27/2019 documented in this encounter* Hannah Talbot APRN-MARBELLA - 02/11/2020 10:50 AM EDT HPI Oswaldo Morel is a 34 y.o. female presenting to the clinic for sinus congestion. States that she hasbeen dealing with runny nose, ear pain and facial pressure. She has tried OTC measures with no relief. She has no CP or SOB. ROS Constitutional: Denies Fever or chills Eyes: Denies visual change or eye discharge Head/Ear/Nose/Throat: SEE HPI Respiratory: SEE HPI Cardiovascular: Denies chest pain or palpitations Gastrointestinal: Denies abdominal pain, Denies nausea or vomiting. Denies constipation or diarrhea Musculoskeletal: Denies Joint pain, Denies muscle pain Skin: Denies Rash Neurological: Denies Headache, Denies focal neuro symptoms Social History Tobacco Use Smoking status: Never Smoker Smokeless tobacco: Never Used Substance Use Topics Alcohol use: Yes Comment: occ Drug use: Never PHYSICAL EXAM Blood pressure 147/75, pulse 97, temperature 98.7 F (37.1 C), temperature source Temporal, resp. rate 16, height 1.626 m (5' 4), weight 121.1 kg (267 lb), last menstrual period 01/16/2020, SpO2 96 %, not currently . Primary Assessment: Airway patent. Respirations unlabored, Normal respiratory effort Constitutional: Vital signs reviewed. Well appearing. No distress Skin: Warm and dry. No rashes noted Eyes: Conjunctiva clear. No photophobia HENT: Normocephalic. Normal Tms. Posterior pharynx clear. Thorax/ Respiratory: Respiratory effort non-labored. CTAB. Heart: Regular rate and rhythm Gastrointestinal: Abdomen soft and non-tender. No rebound. No guarding. No masses. Musculoskeletal: Neck supple. All joints grossly normal. Neurologic: Alert and Oriented Diagnosis: ICD-10-CM 1. Acute URI J06.9 Plan: I explained that this is probably just a viral illness. ATB is to HOLD. She has no CP or SOB. VIKRAM Sharma 02/12/2020 documented in this encounter* Antwon Martin CNP - 05/09/2020 3:15 PM EDT Subjective: Oswaldo Morel is a 34 y.o. female here for No chief complaint on file. .HPI: Cervical spine tenderness on palpation.Pain is exacerbated by stressors such as stress and fatigue. Patient has morning benefit but pain in her cervical muscles as day progresses. Notices that she has shoulder tension and often pull up without patient control. Xrays confirm several levels of cervical degeneration. Again , mornings are when she usually feels the best. 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 This exacerbates the pain and she can't hold her head up straight with pain. When Again emg is negative.PT hurts her. She has tried chiropractic and deep tissue massage and benefits are minimal and short-lived. This is evaluated as a personal injury. Pain is located anterior, lateral, neck, trapezius and levator muscle stiffness. Heat helps some but it is minimal. . Discomfort is described as aching, numbness, sharp/stabbing and tingling. Symptoms are exacerbated by repetitive movements, overhead movements and lying on the shoulder. She also complains of occipital headaches and intrascapular burning.Pain is in middle of right shoulder blade pain is stabbing especially at night when temperature drops. She is here for her 2nd botox series.Her first series she believes helped greater than 50 %. She noted the pain sosa returning in her right levator about 2 weeks ago, when she was actually due to come in at 12 week check up. Indication for Injection Dystonia Substance Injected: Botox Botulinum toxin was diluted using 4cc .9NS (preservative free) per 200 units. Muscle Units / Inj Vol / Inj # of Inj Total Units Total Vol L. Splenius Capitis 7.5 0.2 ml 2 15 0.2 ml R. Splenius Capitis 7.5 0.2 ml 2 15 0.2 ml L. Levator Scapulae 20 0.4 ml 3 60 0.4 ml R. Levator Scapulae 20 0.4 ml 4 80 0.4 ml L. Trapezius 25 0.5 ml 2 50 0.5 ml R. Trapezius 25 0.5 ml 2 50 0.5 ml Other: 0.0 ml 0 0.0 ml Total Amount Administered 270 3.85 ml Waste units: 130u Total Amount Used 270 4.0 ml The following portions of the patient's history were reviewed and updated as appropriate: allergies, current medications, past surgical history and problem list. Review of Systems Constitutional: Negative for chills, diaphoresis and fever. Respiratory: Negative for shortness of breath. Cardiovascular: Negative for chest pain, palpitations and leg swelling. Genitourinary: Negative for frequency and urgency. Musculoskeletal: Positive for myalgias, neck pain and neck stiffness. Skin: Negative for color change, rash and wound. Neurological: Negative for dizziness, syncope and weakness. Psychiatric/Behavioral: Negative for agitation. The patient is not nervous/anxious. Objective: There were no vitals taken for this visit. Physical Exam Constitutional: She is oriented to person, place, and time. She appears well- developed and well-nourished. HENT: Head: Normocephalic and atraumatic. Eyes: Pupils are equal, round, and reactive to light. Neck: Normal range of motion. Neck supple. Cardiovascular: Normal rate and regular rhythm. Pulmonary/Chest: Effort normal and breath sounds normal. Abdominal: Soft. Bowel sounds are normal. Musculoskeletal: General: Tenderness present. Neurological: She is alert and oriented to person, place, and time. She has normal reflexes. Skin: Skin is warm and dry. Imaging from this visit: No results found. Assessment/Plan: 1. Cervical radiculopathy No follow-ups on file. Antwon Martin CNP 05/09/2020 documented in this encounter* Noemi Robin APRN-MARBELLA - 05/15/2020 4:55 PM EDT HPI Oswaldo Morel female 1985 presents to the [facility] with Chief Complaint Patient presents with Ear Pain ear ring is infected about 10 days. Patient presents with infected piercing to right ear worsening over the last ten days. Tried to treat at home with warm compresses, Hibiclens without improvement. Symptoms made worse by glasses resting on area. No fever, chills, NVD. Piercing was done in January. History Allergies Allergen Reactions Bee Venom Swelling Current Outpatient Medications Medication Sig ASHWAGANDHA PO Take 600 mg by mouth 2 times daily. KSM-66 aspirin EC [address] Take 81 mg by mouth daily. atenolol 25 MG tablet Take 12.5 mg by mouth. levothyroxine 125 MCG tablet Take 125 mcg by mouth daily. lisinopril 5 MG tablet meloxicam 15 MG tablet metFORMIN-XR 500 MG Tab SR 24 HR multivitamin tablet Take 1 tablet by mouth daily. cephALEXin 500 MG capsule Take 1 capsule by mouth 2 times daily for 10 days. Family History Problem Relation Age of Onset Diabetes Mother Kidney Disease Mother Hypertension Mother Lipid Disorder Mother Heart Failure Father Heart Disease - Other Father Hypertension Father Lipid Disorder Father Other - Specify Father Fainting Father Depression Father Diabetes Father GI Disease Maternal Grandmother Lung Cancer Maternal Grandfather Colorectal Cancer Maternal Grandfather Heart Disease - Other Paternal Grandmother Heart Disease - Other Paternal Grandfather Past Medical History: Diagnosis Date Arrhythmia Atrial fibrillation Essential hypertension, benign Hyperlipidemia Hyperthyroidism Osteoarthritis Past Surgical History: Procedure Laterality Date TONSILLECTOMY ADENOIDECTOMY Social History Socioeconomic History Marital status: Single Spouse name: Not on file Number of children: Not on file Years of education: Not on file Highest education level: Not on file Occupational History Not on file Social Needs Financial resource strain: Not on file Food insecurity Worry: Not on file Inability: Not on file Transportation needs Medical: Not on file Non-medical: Not on file Tobacco Use Smoking status: Never Smoker Smokeless tobacco: Never Used Substance and Sexual Activity Alcohol use: Yes Comment: occ Drug use: Never Sexual activity: Not Currently Lifestyle Physical activity Days per week: Not on file Minutes per session: Not on file Stress: Not on file Relationships Social connections Talks on phone: Not on file Gets together: Not on file Attends oriental orthodox service: Not on file Active member of club or organization: Not on file Attends meetings of clubs or organizations: Not on file Relationship status: Not on file Intimate partner violence Fear of current or ex partner: Not on file Emotionally abused: Not on file Physically abused: Not on file Forced sexual activity: Not on file Other Topics Concern Service Not Asked Blood Transfusions Not Asked Caffeine Concern Not Asked Occupational Exposure Not Asked Hobby Hazards Not Asked Sleep Concern Not Asked Stress Concern Not Asked Weight Concern Not Asked Special Diet Not Asked Back Care Not Asked Exercise Not Asked Bike Helmet Not Asked Seat Belt Not Asked Domestic Violence No Social History Narrative Not on file ROS Review of Systems Constitutional: Negative for chills and fever. HENT: Positive for ear discharge (external) and ear pain. Negative for congestion, rhinorrhea and sore throat. Eyes: Negative for discharge. Respiratory: Negative for cough. Cardiovascular: Negative for chest pain. Gastrointestinal: Negative for abdominal pain, diarrhea, nausea and vomiting. Musculoskeletal: Negative for back pain. Skin: Positive for color change (right ear). Neurological: Negative for weakness and headaches. Hematological: Negative for adenopathy. Psychiatric/Behavioral: Negative for confusion. PHYSICAL EXAM Visit Vitals BP 126/76 (BP Location: Left arm, BP Position: Sitting) Pulse 73 Temp 97.9 F (36.6 C) (Temporal) Resp 16 Ht 1.626 m (5' 4) Wt 116.9 kg (257 lb 11.2 oz) LMP 05/15/2020 SpO2 98% No BMI 44.23 kg/m Physical Exam Vitals signs and nursing note reviewed. Constitutional: General: She is not in acute distress. Appearance: Normal appearance. She is well-developed. She is not ill-appearing or diaphoretic. HENT: Head: Normocephalic. Right Ear: Tympanic membrane normal. Swelling (external) and tenderness present. Left Ear: Tympanic membrane normal. Ears: Nose: Comments: masked Eyes: Conjunctiva/sclera: Conjunctivae normal. Pupils: Pupils are equal, round, and reactive to light. Neck: Musculoskeletal: Normal range of motion and neck supple. Trachea: No tracheal deviation. Cardiovascular: Rate and Rhythm: Normal rate and regular rhythm. Heart sounds: Normal heart sounds. Pulmonary: Effort: Pulmonary effort is normal. No respiratory distress. Breath sounds: Normal breath sounds. Abdominal: General: There is no distension. Palpations: Abdomen is soft. Musculoskeletal: Normal range of motion. Lymphadenopathy: Cervical: No cervical adenopathy. Skin: General: Skin is warm and dry. Capillary Refill: Capillary refill takes less than 2 seconds. Neurological: General: No focal deficit present. Mental Status: She is alert and oriented to person, place, and time. Psychiatric: Mood and Affect: Mood normal. Behavior: Behavior normal. RESULTS No results found for this or any previous visit (from the past 1 hour(s)). ASSESSMENT/PLAN 1. Pierced ear infection, right, initial encounter Orders Placed This Encounter levothyroxine 125 MCG tablet cephALEXin 500 MG capsule Start ATB. Continue wound care at home. Follow up with PCP if not improved with ATB. If symptoms worsen patient was advised to follow up in our office, primary care provider or the Emergency Dept. Benefits, Risks, Contraindications, and Complications of recommended treatments were explained. The patient understands and agrees to proceed with plan. VIKRAM Carter 05/15/2020 documented in this encounter* Lula High PA - 07/11/2020 5:35 PM EDT URGENT CARE eNCOUnter CHIEF COMPLAINT Hand Pain (right index finger has infection.) DIANA Morel is a 34 y.o. female who presents today for complaint of Swelling and pain of her rightindex finger. Patient states for about 1 week she has noticed some increased pain and swelling in the tip of her index finger. Reports previous infection like this in the past. Denies fever or chills. Denies any injury or pain with moving his finger. REVIEW OF SYSTEMS Review of Systems Constitutional: Negative for chills, fatigue and fever. HENT: Negative for congestion, sore throat and trouble swallowing. Eyes: Negative for visual disturbance. Respiratory: Negative for cough, chest tightness and shortness of breath. Cardiovascular: Negative for chest pain. Gastrointestinal: Negative for abdominal pain, nausea and vomiting. Musculoskeletal: Negative for arthralgias and joint swelling. Skin: Positive for color change and wound. Negative for rash. Neurological: Negative for dizziness and weakness. All other systems reviewed and are negative. PAST MEDICAL HISTORY Past Medical History: Diagnosis Date Arrhythmia Atrial fibrillation Essential hypertension, benign Hyperlipidemia Hyperthyroidism Osteoarthritis SURGICAL HISTORY Past Surgical History: Procedure Laterality Date TONSILLECTOMY ADENOIDECTOMY CURRENT MEDICATIONS Current Outpatient Medications Medication Sig Dispense Refill ASHWAGANDHA PO Take 600 mg by mouth 2 times daily. KSM-66 aspirin EC [address] Take 81 mg by mouth daily. atenolol 25 MG tablet Take 12.5 mg by mouth. levothyroxine 125 MCG tablet Take 125 mcg by mouth daily. lisinopril 5 MG tablet meloxicam 15 MG tablet metFORMIN-XR 500 MG Tab SR 24 HR multivitamin tablet Take 1 tablet by mouth daily. sulfamethoxazole-trimethoprim (Bactrim DS) 800-160 MG per tablet Take 1 tablet by mouth 2 times daily for 7 days. 14 tablet 0 No current facility-administered medications for this visit. ALLERGIES Allergies Allergen Reactions Bee Venom Swelling FAMILY HISTORY Family History Problem Relation Age of Onset Diabetes Mother Kidney Disease Mother Hypertension Mother Lipid Disorder Mother Heart Failure Father Heart Disease - Other Father Hypertension Father Lipid Disorder Father Other - Specify Father Fainting Father Depression Father Diabetes Father GI Disease Maternal Grandmother Lung Cancer Maternal Grandfather Colorectal Cancer Maternal Grandfather Heart Disease - Other Paternal Grandmother Heart Disease - Other Paternal Grandfather SOCIAL HISTORY Social History Socioeconomic History Marital status: Single Spouse name: Not on file Number of children: Not on file Years of education: Not on file Highest education level: Not on file Occupational History Not on file Social Needs Financial resource strain: Not on file Food insecurity Worry: Not on file Inability: Not on file Transportation needs Medical: Not on file Non-medical: Not on file Tobacco Use Smoking status: Never Smoker Smokeless tobacco: Never Used Substance and Sexual Activity Alcohol use: Yes Comment: occ Drug use: Never Sexual activity: Not Currently Lifestyle Physical activity Days per week: Not on file Minutes per session: Not on file Stress: Not on file Relationships Social connections Talks on phone: Not on file Gets together: Not on file Attends oriental orthodox service: Not on file Active member of club or organization: Not on file Attends meetings of clubs or organizations: Not on file Relationship status: Not on file Intimate partner violence Fear of current or ex partner: Not on file Emotionally abused: Not on file Physically abused: Not on file Forced sexual activity: Not on file Other Topics Concern Service Not Asked Blood Transfusions Not Asked Caffeine Concern Not Asked Occupational Exposure Not Asked Hobby Hazards Not Asked Sleep Concern Not Asked Stress Concern Not Asked Weight Concern Not Asked Special Diet Not Asked Back Care Not Asked Exercise Not Asked Bike Helmet Not Asked Seat Belt Not Asked Domestic Violence No Social History Narrative Not on file PHYSICAL EXAM BP (!) 137/97 (BP Location: Left arm, BP Position: Sitting) Pulse 96 Temp 98 F (36.7 C) (Temporal) Resp 16 Ht 1.626 m (5' 4) Wt 117.4 kg (258 lb 12.8 oz) BMI 44.42 kg/m Smoking Status Never Smoker Physical Exam General exam: Patient is well-developed and well-nourished in no distress. Patient does not appear acutely ill or toxic. Eye exam: Lids and conjunctivae are normal Pulmonary exam: No respiratory distress. Respiratory rate is normal. No stridor. Breath sounds are equal bilaterally. There are no wheezes, rales, or rhonchi noted. Cardiac exam: The cardiac rate and rhythm are normal. No significant murmurs, rubs, or gallops. Peripheral pulses are normal. Skin and soft tissue: right index finger: + mild erythema and tenderness over medial nail fold. No fluctuance. + crusting drainage. 2+ radial pulse, good capillary refill. Musculoskeletal exam: normal range of motion of all digits on right hand. Normal range of motion ofright wrist. Neurologic: Patient is alert and appropriate. Psychiatric: Normal adult with appropriate demeanor and interpersonal interaction. Is oriented to person, place, and time. Diagnosis, Assessment & Plan: Oswaldo was seen today for hand pain. Diagnoses and all orders for this visit: Paronychia of right index finger Other orders - sulfamethoxazole-trimethoprim (Bactrim DS) 800-160 MG per tablet; Take 1 tablet by mouth 2 times daily for 7 days. 34-year-old female presents today with apparent acute right index finger. No need for I&D today. Advised to continue warm soaks. Patient started on Bactrim. Advised to return if any new or worsening symptoms. Discussed signs of worsening infection. Also advised to follow-up with her primary care physician. JULIO Marsh 07/11/2020 documented in this encounter* Antwon Martin CNP - 09/12/2020 4:33 PM EDT Associated Order(s): LG Jt Injection/Arthrocentesis: R subacromial bursa Post-Procedure Diagnose(s): Acute pain of right shoulder LG Jt Injection/Arthrocentesis: R subacromial bursa Performed by: Antwon Martin CNP Authorized by: Antwon Martin CNP CPT 10017 - Large Joint Arthrocentesis: Consent given by: Patient Time out: Immediately prior to the procedure a time out was called Physician or proceduralist has discussed critical or nonroutine steps, procedure duration and anticipated blood loss: Yes Supporting Documentation: Indications: Pain Procedure Details: Location: Shoulder Site: R subacromial bursa Prep: patient was prepped and draped in usual sterile fashion Needle size: 22 G Approach: Posterior Medications: 1 mL dexamethasone 4 mg/mL, 1 mL triamcinolone acetonide 40 mg/mL Anesthetic used: Bupivacaine 0.5% and Lidocaine 1% Anesthetic amount (mL): 4 Patient tolerance: Patient tolerated the procedure well with no immediate complications * Antwon Martin CNP - 09/12/2020 3:33 PM EDT Subjective: Oswaldo Morel is a 34 y.o. female here for No chief complaint on file. .HPI: Cervical spine tenderness on palpation.Pain is exacerbated by stressors such as stress and fatigue. Patient has morning benefit but pain in her cervical muscles as day progresses. Notices that she has shoulder tension and often pull up without patient control. Xrays confirm several levels of cervical degeneration. Again , mornings are when she usually feels the best. 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 This exacerbates the pain and she can't hold her head up straight with pain. When Again emg is negative.PT hurts her. She has tried chiropractic and deep tissue massage and benefits are minimal and short-lived. This is evaluated as a personal injury. Pain is located anterior, lateral, neck, trapezius and levator muscle stiffness. Heat helps some but it is minimal. . Discomfort is described as aching, numbness, sharp/stabbing and tingling. Symptoms are exacerbated by repetitive movements, overhead movements and lying on the shoulder. She also complains of occipital headaches and intrascapular burning.Pain is in middle of right shoulder blade pain is stabbing especially at night when temperature drops. She is here for her 3rd botox series. Indication for Injection Dystonia Substance Injected: Botox Botulinum toxin was diluted using 4cc .9NS (preservative free) per 200 units. Muscle Units / Inj Vol / Inj # of Inj Total Units Cervical paraspinals B/L 5 0.2 ml 4 20 L. Levator Scapulae 20 0.4 ml 3 60 R. Levator Scapulae 20 0.4 ml 4 80 L. Trapezius 30 0.5 ml 2 60 R. Trapezius 30 0.5 ml 2 60 Other: 0.0 ml 0 Total Amount Administered 280 Waste units: 120 Total Amount Used 280 The following portions of the patient's history were reviewed and updated as appropriate: allergies, current medications, past surgical history and problem list. Review of Systems Constitutional: Negative for chills, diaphoresis and fever. Respiratory: Negative for shortness of breath. Cardiovascular: Negative for chest pain, palpitations and leg swelling. Genitourinary: Negative for frequency and urgency. Musculoskeletal: Positive for myalgias, neck pain and neck stiffness. Skin: Negative for color change, rash and wound. Neurological: Negative for dizziness, syncope and weakness. Psychiatric/Behavioral: Negative for agitation. The patient is not nervous/anxious. Objective: There were no vitals taken for this visit. Physical Exam Constitutional: She is oriented to person, place, and time. She appears well- developed and well-nourished. HENT: Head: Normocephalic and atraumatic. Eyes: Pupils are equal, round, and reactive to light. Neck: Normal range of motion. Neck supple. Cardiovascular: Normal rate and regular rhythm. Pulmonary/Chest: Effort normal and breath sounds normal. Abdominal: Soft. Bowel sounds are normal. Musculoskeletal: General: Tenderness present. Neurological: She is alert and oriented to person, place, and time. She has normal reflexes. Skin: Skin is warm and dry. Assessment/Plan: She is also having right shoulder flare up .She has gotten injections in the past from me. I will inject right shoulder with steroid today as well 1. Cervical radiculopathy 2. Acute pain of right shoulder Return in about 3 months (around 12/13/2020). Antwon Martin CNP 09/12/2020 documented in this encounter* Sahnice Berger APRN-MARBELLA - 10/12/2020 3:55 PM EST HPI Oswaldo Morel female 1985 presents to the [facility] with Chief Complaint Patient presents with Ear Pain left ear infection Patient presents with left ear infection around piercing. She had it pierced several months ago andshe states that it feels like it has never completely healed. She complains of increased pain and swelling along with some yellow drainage. She denies any fever/chills. She voices no other concerns at this time History Allergies Allergen Reactions Bee Venom Swelling Seasonal Current Outpatient Medications Medication Sig Accu-Chek FastClix Lancets Misc USE TO CHECK GLUCOSE ONCE DAILY Accu-Chek Guide Strip strip USE TO CHECK GLUCOSE ONCE DAILY ASHWAGANDHA PO Take 600 mg by mouth 2 times daily. KSM-66 aspirin EC [address] Take 81 mg by mouth daily. atenolol 25 MG tablet Take 12.5 mg by mouth. cephALEXin 500 MG capsule Take 1 capsule by mouth 2 times daily for 7 days. levothyroxine 125 MCG tablet Take 125 mcg by mouth daily. lisinopril 5 MG tablet meloxicam 15 MG tablet metFORMIN-XR 500 MG Tab SR 24 HR multivitamin tablet Take 1 tablet by mouth daily. mupirocin 2 % ointment Apply topical TID for 7 days Family History Problem Relation Age of Onset Diabetes Mother Kidney Disease Mother Hypertension Mother Lipid Disorder Mother Heart Failure Father Heart Disease - Other Father Hypertension Father Lipid Disorder Father Other - Specify Father Fainting Father Depression Father Diabetes Father GI Disease Maternal Grandmother Lung Cancer Maternal Grandfather Colorectal Cancer Maternal Grandfather Heart Disease - Other Paternal Grandmother Heart Disease - Other Paternal Grandfather Past Medical History: Diagnosis Date Arrhythmia Atrial fibrillation Essential hypertension, benign Hyperlipidemia Hyperthyroidism Osteoarthritis Past Surgical History: Procedure Laterality Date TONSILLECTOMY ADENOIDECTOMY Social History Socioeconomic History Marital status: Single Spouse name: Not on file Number of children: Not on file Years of education: Not on file Highest education level: Not on file Occupational History Not on file Social Needs Financial resource strain: Not on file Food insecurity Worry: Not on file Inability: Not on file Transportation needs Medical: Not on file Non-medical: Not on file Tobacco Use Smoking status: Never Smoker Smokeless tobacco: Never Used Substance and Sexual Activity Alcohol use: Yes Comment: occ Drug use: Never Sexual activity: Not Currently Lifestyle Physical activity Days per week: Not on file Minutes per session: Not on file Stress: Not on file Relationships Social connections Talks on phone: Not on file Gets together: Not on file Attends oriental orthodox service: Not on file Active member of club or organization: Not on file Attends meetings of clubs or organizations: Not on file Relationship status: Not on file Intimate partner violence Fear of current or ex partner: Not on file Emotionally abused: Not on file Physically abused: Not on file Forced sexual activity: Not on file Other Topics Concern Service Not Asked Blood Transfusions Not Asked Caffeine Concern Not Asked Occupational Exposure Not Asked Hobby Hazards Not Asked Sleep Concern Not Asked Stress Concern Not Asked Weight Concern Not Asked Special Diet Not Asked Back Care Not Asked Exercise Not Asked Bike Helmet Not Asked Seat Belt Not Asked Domestic Violence No Social History Narrative Not on file ROS Review of Systems Constitutional: Negative. HENT: Negative. Eyes: Negative. Respiratory: Negative. Cardiovascular: Negative. Gastrointestinal: Negative. Musculoskeletal: Negative. Skin: Positive for wound. Neurological: Negative. Psychiatric/Behavioral: Negative. PHYSICAL EXAM Visit Vitals BP 115/69 (BP Location: Left arm, BP Position: Sitting) Pulse 84 Temp 98.2 F (36.8 C) (Oral) Resp 16 Ht 1.626 m (5' 4) Wt 118.3 kg (260 lb 12.8 oz) LMP 10/08/2020 SpO2 97% No BMI 44.77 kg/m Physical Exam Vitals signs and nursing note reviewed. Constitutional: Appearance: Normal appearance. She is not ill-appearing. HENT: Head: Normocephalic. Right Ear: External ear normal. Left Ear: External ear normal. Ears: Comments: Swelling, redness and scant amt serous drainage noted around piercing. Nose: Nose normal. Eyes: Pupils: Pupils are equal, round, and reactive to light. Neck: Musculoskeletal: Normal range of motion. Cardiovascular: Rate and Rhythm: Normal rate. Pulmonary: Effort: Pulmonary effort is normal. Abdominal: General: There is no distension. Musculoskeletal: Normal range of motion. Skin: General: Skin is warm and dry. Capillary Refill: Capillary refill takes less than 2 seconds. Neurological: General: No focal deficit present. Mental Status: She is alert and oriented to person, place, and time. Psychiatric: Thought Content: Thought content normal. RESULTS No results found for this or any previous visit (from the past 1 hour(s)). ASSESSMENT/PLAN 1. Pierced ear infection, left, initial encounter Orders Placed This Encounter Accu-Chek Guide Strip strip Accu-Chek FastClix Lancets Misc mupirocin 2 % ointment cephALEXin 500 MG capsule pt presents to the clinic with infected piercing to the left ear. This has been going on for several months. She will be started on Keflex and mupirocin ointment. If any new or worsening symptoms sheis return to clinic follow-up with primary care. May take [id number] Tylenol or ibuprofen forpain. Patient agrees with plan and she is discharged home stable If symptoms worsen patient was advised to follow up in our office, primary care provider or the Emergency Dept. Benefits, Risks, Contraindications, and Complications of recommended treatments were explained. The patient understands and agrees to proceed with plan. VIKRAM Rowan 10/12/2020 documented in this encounter* Brit Sapp CNP - 12/02/2020 12:35 PM EST HPI Oswaldo Morel female 1985 presents to the [facility] with Chief Complaint Patient presents with Back Pain Pt reports having a pretty nasty fall 4 days ago. Reports fell mainly on right hip and back Patient presents with an antalgic gait with complaints of a four-day history of mid lower back painafter falling on [place]. Patient denies any numbness or tingling to her lower extremities but states she has decreased range of motion and strength to her lower back. Patient states that is the mid back and is currently an 8 out of 10 and is sharp. Patient states movements or walking increases severity of her pain. Patient states she takes meloxicam at home and this has helped but her pain has persisted and she presents for evaluation. History Allergies Allergen Reactions Bee Venom Swelling Seasonal Current Outpatient Medications Medication Sig Accu-Chek FastClix Lancets Misc USE TO CHECK GLUCOSE ONCE DAILY Accu-Chek Guide Strip strip USE TO CHECK GLUCOSE ONCE DAILY ASHWAGANDHA PO Take 600 mg by mouth 2 times daily. KSM-66 aspirin EC [address] Take 81 mg by mouth daily. atenolol 25 MG tablet Take 12.5 mg by mouth. levothyroxine 125 MCG tablet Take 125 mcg by mouth daily. lisinopril 5 MG tablet meloxicam 15 MG tablet metFORMIN-XR 500 MG Tab SR 24 HR multivitamin tablet Take 1 tablet by mouth daily. mupirocin 2 % ointment Apply topical TID for 7 days methylPREDNIsolone 4 MG Tab Therapy Pack tablet Take as directed PO Family History Problem Relation Age of Onset Diabetes Mother Kidney Disease Mother Hypertension Mother Lipid Disorder Mother Heart Failure Father Heart Disease - Other Father Hypertension Father Lipid Disorder Father Other - Specify Father Fainting Father Depression Father Diabetes Father GI Disease Maternal Grandmother Lung Cancer Maternal Grandfather Colorectal Cancer Maternal Grandfather Heart Disease - Other Paternal Grandmother Heart Disease - Other Paternal Grandfather Past Medical History: Diagnosis Date Arrhythmia Atrial fibrillation Essential hypertension, benign Hyperlipidemia Hyperthyroidism Osteoarthritis Past Surgical History: Procedure Laterality Date TONSILLECTOMY ADENOIDECTOMY Social History Socioeconomic History Marital status: Single Spouse name: Not on file Number of children: Not on file Years of education: Not on file Highest education level: Not on file Occupational History Not on file Social Needs Financial resource strain: Not on file Food insecurity Worry: Not on file Inability: Not on file Transportation needs Medical: Not on file Non-medical: Not on file Tobacco Use Smoking status: Never Smoker Smokeless tobacco: Never Used Substance and Sexual Activity Alcohol use: Yes Comment: occ Drug use: Never Sexual activity: Not Currently Lifestyle Physical activity Days per week: Not on file Minutes per session: Not on file Stress: Not on file Relationships Social connections Talks on phone: Not on file Gets together: Not on file Attends oriental orthodox service: Not on file Active member of club or organization: Not on file Attends meetings of clubs or organizations: Not on file Relationship status: Not on file Intimate partner violence Fear of current or ex partner: Not on file Emotionally abused: Not on file Physically abused: Not on file Forced sexual activity: Not on file Other Topics Concern Service Not Asked Blood Transfusions Not Asked Caffeine Concern Not Asked Occupational Exposure Not Asked Hobby Hazards Not Asked Sleep Concern Not Asked Stress Concern Not Asked Weight Concern Not Asked Special Diet Not Asked Back Care Not Asked Exercise Not Asked Bike Helmet Not Asked Seat Belt Not Asked Domestic Violence No Social History Narrative Not on file ROS Review of Systems Constitutional: Negative. HENT: Negative. Eyes: Negative. Negative for discharge. Respiratory: Negative. Negative for apnea. Cardiovascular: Negative. Negative for chest pain. Gastrointestinal: Negative. Negative for abdominal distention. Musculoskeletal: Positive for back pain and gait problem. Skin: Negative. Negative for color change. Neurological: Negative for facial asymmetry. Psychiatric/Behavioral: Negative. Negative for agitation. All other systems reviewed and are negative. PHYSICAL EXAM Visit Vitals BP (!) 144/93 (BP Location: Left arm, BP Position: Sitting) Pulse 85 Temp 97.6 F (36.4 C) (Temporal) Resp 18 Ht 1.626 m (5' 4) Wt 119.9 kg (264 lb 6.4 oz) SpO2 95% BMI 45.38 kg/m Physical Exam Vitals signs and nursing note reviewed. Constitutional: Appearance: Normal appearance. She is not ill-appearing. HENT: Head: Normocephalic. Right Ear: External ear normal. Left Ear: External ear normal. Nose: Nose normal. Mouth/Throat: Mouth: Mucous membranes are moist. Eyes: Pupils: Pupils are equal, round, and reactive to light. Neck: Musculoskeletal: Normal range of motion. Cardiovascular: Rate and Rhythm: Normal rate. Pulmonary: Effort: Pulmonary effort is normal. Abdominal: General: There is no distension. Musculoskeletal: Comments: Decreased range of motion to the lower back and there is tenderness to the mid and mid right back on palpation. There is pain with flexion of the right hip to the lower back Skin: General: Skin is warm and dry. Capillary Refill: Capillary refill takes less than 2 seconds. Neurological: General: No focal deficit present. Mental Status: She is alert. Psychiatric: Behavior: Behavior normal. RESULTS No results found for this or any previous visit (from the past 1 hour(s)). ASSESSMENT/PLAN 1. Strain of lumbar region, initial encounter Orders Placed This Encounter DISCONTD: ketorolac (TORADOL) injection 60 mg methylPREDNIsolone 4 MG Tab Therapy Pack tablet ketorolac (TORADOL) injection 60 mg Medical Decision Making Course: Worsening Problem: Patient presents with a single acute, uncomplicated injury to the lower back resulting in lower back pain Data reviewed/analyzed: Patient's previous progress note was reviewed Risk: Low risk of morbidity from additional diagnostic testing or treatment Problems addressed: Patient's acute lumbar strain was addressed in office with a 60 mg IM injectionof ketorolac with no change in her subjective complaints of pain prior to discharge. She was instructed to discontinue her meloxicam this evening and she will also be discharged with a tapered steroid. Patient's diabetes was discussed due to the affects steroid treatment may have on her diabetes. Stretching exercises were reviewed with patient. Patient agrees to follow-up with her primary care provider for any increase in severity symptoms or additional concerns in 3-5 days. Patient agrees withplan of care, questions were encouraged and answered. Patient was provided educational discharge instructions. If symptoms worsen patient was advised to follow up in our office, primary care provider or the Emergency Dept. Benefits, Risks, Contraindications, and Complications of recommended treatments were explained. The patient understands and agreesto proceed with plan. Brit Sapp CNP 12/02/2020 documented in this encounter* Antwon Martin CNP - 12/05/2020 3:15 PM EST Subjective: Oswaldo Morel is a 35 y.o. female here for No chief complaint on file. .HPI: Cervical spine tenderness on palpation.Pain is exacerbated by stressors such as stress and fatigue. Patient has morning benefit but pain in her cervical muscles as day progresses. Notices that she has shoulder tension and often pull up without patient control. Xrays confirm several levels of cervical degeneration. Again , mornings are when she usually feels the best. 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 This exacerbates the pain and she can't hold her head up straight with pain. When Again emg is negative.PT hurts her. She has tried chiropractic and deep tissue massage and benefits are minimal and short-lived. This is evaluated as a personal injury. Pain is located anterior, lateral, neck, trapezius and levator muscle stiffness. Heat helps some but it is minimal. . Discomfort is described as aching, numbness, sharp/stabbing and tingling. Symptoms are exacerbated by repetitive movements, overhead movements and lying on the shoulder. She also complains of occipital headaches and intrascapular burning.Pain is in middle of right shoulder blade pain is stabbing especially at night when temperature drops. She is here for her 3rd botox series. Indication for Injection Dystonia Substance Injected: Botox Botulinum toxin was diluted using 4cc .9NS (preservative free) per 200 units. Muscle Units / Inj Vol / Inj # of Inj Total Units Cervical paraspinals B/L 10 0.2 ml 4 40 L. Levator Scapulae 20 0.4 ml 3 60 R. Levator Scapulae 20 0.4 ml 4 80 L. Trapezius 20 0.5 ml 2 40 R. Trapezius 40 0.5 ml 2 80 Other: 0.0 ml 0 Total Amount Administered 300 Waste units: 100 Total Amount Used 300 The following portions of the patient's history were reviewed and updated as appropriate: allergies, current medications, past surgical history and problem list. Review of Systems Constitutional: Negative for chills, diaphoresis and fever. Respiratory: Negative for shortness of breath. Cardiovascular: Negative for chest pain, palpitations and leg swelling. Genitourinary: Negative for frequency and urgency. Musculoskeletal: Positive for myalgias, neck pain and neck stiffness. Skin: Negative for color change, rash and wound. Neurological: Negative for dizziness, syncope and weakness. Psychiatric/Behavioral: Negative for agitation. The patient is not nervous/anxious. Objective: There were no vitals taken for this visit. Physical Exam Constitutional: She is oriented to person, place, and time. She appears well- developed and well-nourished. HENT: Head: Normocephalic and atraumatic. Eyes: Pupils are equal, round, and reactive to light. Neck: Normal range of motion. Neck supple. Cardiovascular: Normal rate and regular rhythm. Pulmonary/Chest: Effort normal and breath sounds normal. Abdominal: Soft. Bowel sounds are normal. Musculoskeletal: General: Tenderness present. Neurological: She is alert and oriented to person, place, and time. She has normal reflexes. Skin: Skin is warm and dry. Assessment/Plan: She is also having right shoulder flare up .She has gotten injections in the past from me. I will inject right shoulder with steroid today as well 1. Cervical dystonia No follow-ups on file. Antwon Martin CNP 12/04/2020 documented in this encounter* MarinaSarah torresh, [facility]IST - 09/26/2019 4:00 PM EDT [facility] OUTPATIENT REHABILITATION DAILY TREATMENT NOTE Today's Date 09/26/2019 Patient Name: Oswaldo Morel Date of : 1985 Current Visit #: 7 Authorized Visits: 25 Case Name: Cervical Radiculopathy/ Riht Shoulder Pain History: Pre-Treatment Pain Scale: 3 Symptoms: stabilized Functional Diagnosis: 1. Acute pain of right shoulder Clinical Information: Subjective: Reports being a little more sore today, thinks it is weather related. Concerned about her hands and whether it may be carpal tunnel or possible rheumatoid arthritis. Objective Continued with exercises and stretches as charted. 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 Ended with STM/occipital release. Treatments: Physical Therapy Exercise Log - 09/26/19 1555 OTHER Notes Right Shoulder/Cervical Pain Therapeutic Exercise (41249) Intervention Standing cervical retraction 10 times Parameters Wall flexion stretch 10 times R arm, shoulder rolls Intervention Counter stretch 10 times Parameters Cervical range of motion x 10 each Intervention shoulder isometrics flex, ext, abd 5 x 10 Parameters levator stretches R side x5 Intervention Scapular elevation/depression 10 times at wall with yellow ball. Parameters shoulder stability with bal on wall up and down, side to side 10 times Intervention mB woodchopping and chest press 2# 10 times Manual Therapy (89342) Intervention suboccipital release and STM 10 minutes PT Treatment Times Therex Total Time 30 Manual Therapy Total Time 10 Direct Treatment Time 40 Total Treatment Time 45 Goals: Physical Therapy Ortho Goals: The patient will have full shoulder and neck ROM without pain within 6 weeks. The patient will be able to work full duty without shoulder pain. The patient will be able to return to normal exercises routine demonstrating normal shoulder function. Patient Education: Verbal HEP with patient demonstrated understanding. Post-Treatment Pain Scale: 1 Assessment: Patient had an expected response to treatment. Patient continues to report relief following STM. Skilled Intervention demonstrated by modifications of treatment per exercise log including assessment of patient's response and safety interventions per exercise log. Progress towards goals as expected. Plan for Next Visit: Treatment Visit with focus on postural exercises and education. Shahida Gray PTA STATE LICENSE, [id number] documented in this encounter* Shahida Gray PTA - 10/05/2019 4:00 PM EST [facility] OUTPATIENT REHABILITATION DAILY TREATMENT NOTE Today's Date 10/05/2019 Patient Name: Oswaldo Morel Date of : 1985 Current Visit #: 11 Authorized Visits: 25 Case Name: Cervical Radiculopathy/ Riht Shoulder Pain History: Pre-Treatment Pain Scale: 2 Symptoms: gradually improved Functional Diagnosis: 1. Acute pain of right shoulder Clinical Information: Subjective: Neck continues to be stiff. Shoulder not feeling too bad. Back to work full duty. Not reporting any increased symptoms at this time. Objective Completed exercises as charted. Patient denies increase in symptoms with exercises. Noting decreasein tightness with cervical distraction and STM. Treatments: Physical Therapy Exercise Log - 10/05/19 8585 OTHER Notes Right Shoulder/Cervical Pain Therapeutic Exercise (43223) Intervention Standing cervical retraction 10 times Parameters Wall flexion stretch 10 times R arm, shoulder rolls Intervention Counter stretch 10 times Parameters Cervical range of motion x 10 each Intervention shoulder isometrics flex, ext, abd 5 x 10 Parameters levator stretches R side x5 Intervention Scapular elevation/depression 10 times at wall with yellow ball. Parameters shoulder stability with bal on wall up and down, side to side 10 times Intervention mB woodchopping and chest press 2# 10 times Parameters Arm swings with 2# weights Intervention Supine chest press, overhead flexion and ER with 4# bar 10 times each Parameters GTB scap retraction, shld ext, IR 10 times each Manual Therapy ([id number]) Intervention suboccipital release and STM 10 minutes PT Treatment Times Therex Total Time 30 Manual Therapy Total Time 10 Direct Treatment Time 40 Total Treatment Time 45 Goals: Physical Therapy Ortho Goals: The patient will have full shoulder and neck ROM without pain within 6 weeks. The patient will be able to work full duty without shoulder pain. The patient will be able to return to normal exercises routine demonstrating normal shoulder function. Patient Education: Verbal HEP with patient demonstrated understanding. Post-Treatment Pain Scale: 1 Assessment: Patient had an expected response to treatment. Skilled Intervention demonstrated by modifications of treatment per exercise log including assessment of patient's response and safety interventions per exercise log. Progress towards goals as expected. Patient has returned to full duty at work. Shoulder ROM is WFL's and patient demonstrating improved cervical range. Plan for Next Visit: Treatment Visit with focus on HEP instruction and range of motion. Patient has1 visit left and then will be dishcarged to HEP. Shahida Gray PTA STATE LICENSE, [id number] documented in this encounter* Kendra Harry, RD - 12/10/2020 4:33 PM EST Patient Name: Oswaldo Morel Patient : 1985 Primary Care Provider: Aaron Leigh MD Referred By: Aaron Leigh MD Referral Diagnosis: Diabetes Type 2 Met with pt via telehealth video visit today. Pt consented to treatment today. Start Time: 1600 End Time: 1630 Nutrition Diagnosis: Overweight/Obesity related to excessive energy intake as evidenced by BMI> 25 and diet history. Nutrition Goals: I will limit eating out to 3 times a week and look up nutrition information beforegoing out. I will purchase Urdu yogurt and have overnight oats for breakfast. I will move around more at work by taking 3 walk breaks. Follow Up: Follow up appointment scheduled by patient Assessment: Pt reports high stress and with the holidays she has not been able to keep on track with diet as much as she would like. Pt reports wt has remained stable. Pt reports that when eating outshe is making healthier choices and taking some home. Recent steroids for back. Pt reports FBS thisam was 204 which is much higher than normal. She relates this to stress of upcoming house purchase.Reports other readings tend to be less then 140. Pt is eating three meals a day. Snacking on vegetables and diet does appear to have adequate vegetable intake. Diet is high in fat and sodium from frequent eating out with pt eating out 5-7 days a week. Reason for Visit: wt loss/DM Height: 64 Current Weight: 257# per pt stated wt, unable to obtain wt due to telehealth visit. BMI: 44- class III obesity Weight History: stable Wt Readings from Last 5 Encounters: 05/09/20 113.4 kg (250 lb) 12/27/19 113.4 kg (250 lb) 12/20/19 113.4 kg (250 lb) 12/20/19 113.4 kg (250 lb) 12/14/19 111.1 kg (245 lb) Diet History/Recall: 3 meals with 1-2 snacks Food Purchase/Prep: self Breakfast: sausage egg cheese mcmuffin, hashbrown, coffee Lunch: tator tot casserole- 2 cups Dinner:steak, mashed potato, broccoli Snacks: carrots and hummus Daily Fluids: water, 12-24oz coffee, rush almond milk Meals Away From Home: 5-7 times a week PMHx: Past Medical History: Diagnosis Date Atrial fibrillation (HCC) Disease of thyroid gland Hypertension Osteoarthritis osteoarthritis Current/Pertinent Medications: no changes Lab Values: SMBG FBS 100-204 Lab Results Component Value Date HGBA1C 6.9 (H) 07/07/2020 HGBA1C 5.9 (H) 09/06/2019 Lab Results Component Value Date CHOL 226 (H) 07/07/2020 CHOL 274 (H) 09/06/2019 Lab Results Component Value Date TRIG 350 (H) 07/07/2020 TRIG 225 (H) 09/06/2019 Lab Results Component Value Date HDL 34 (L) 07/07/2020 HDL 46 09/06/2019 No results found for: LDL Nutrition Focused Physical Findings: Food Allergies/Intolerances: GF, lactose free diet Current Activity Level: Sedentary Food Insecurity Survey: 1. Within the past 12 months, we worried whether our food would run out before we got money to buy more. Often True [3], Sometimes True [2], Rarely True [1], Never True [0] 2. Within the past 12 months, the food we bought just didn't last and we didn't have the money to get more. Often True [3], Sometimes True [2], Rarely True [1], Never True [0] Estimated Nutritional Needs: Calorie Needs: 1800kcal (see assessment) Intervention/Education Provided: Meal planning, eating out, exercise Patient/Family Education: Learner: patient Readiness: contemplation - ambivalent about change - struggles to reach goals Method: explanation Response: verbalizes understanding Education Materials Provided: no new Monitoring/Evaluation: Weight, Food Record/Recall, Meal Planning, Physical Activity, Medication Management, Goal Assessment This note has been communicated to referring healthcare provider. Kendra Harry RDN, LD Office documented in this encounter* Kendra Harry RD - 01/07/2021 4:25 PM EST Patient Name: Oswaldo Morel Patient : 1985 Primary Care Provider: Aaron Leigh MD Referred By: Aaron Leigh MD Referral Diagnosis: Diabetes Type 2, wt loss Start Time: 1555 End Time: 1620 Nutrition Diagnosis: Inconsistent carbohydrate intake related to food and nutrition related knowledge deficit of diabetic meal planning as evidenced by diet history and patient report blood sugar values Nutrition Goals: I will aim for 30-45g CHO at my meals. I will add a fruit to breakfast with my yogurt. I will exercise using [employer] work outs and walk outside when weather improves. Follow Up: Follow up appointment scheduled by patient- 4 weeks Assessment: Pt just moved into new home. 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 Pt reports often feels hungry and question if having enough at meals. Discussed calorie needs and balance for meals/snacks. Also discussed macronutirent balance to ensure balance of CHO/protein at meals. Continued to encouraged physical activity. Pt has been doing walking at work 2-3 times daily. Doing well with incorporating vegetables into diet. Continues to eat out frequently but pt has seen a 6# wt loss. Reason for Visit: DM, wt loss Height: 64 Current Weight: 261# - previous notes with wt of 257# however pt reports wt was actually 267#- states she is weighing herself at home weekly BMI: 45- class III obesity Weight History: Wt Readings from Last 5 Encounters: 05/09/20 113.4 kg (250 lb) 12/27/19 113.4 kg (250 lb) 12/20/19 113.4 kg (250 lb) 12/20/19 113.4 kg (250 lb) 12/14/19 111.1 kg (245 lb) Diet History/Recall: 3 meals with snacks Food Purchase/Prep: self Breakfast: light yogurt, protein pack Lunch: lean cuisine, 1/2 bag frz veg, pkt tuna Dinner: subway protein bowl Snacks: peanut butter and almond milk Daily Fluids: water, almond milk Meals Away From Home: reports 3 times a week on average PMHx: Past Medical History: Diagnosis Date Atrial fibrillation (HCC) Disease of thyroid gland Hypertension Osteoarthritis osteoarthritis Current/Pertinent Medications: no changes Lab Values: SMBG FBS 127-160 Lab Results Component Value Date HGBA1C 6.9 (H) 07/07/2020 HGBA1C 5.9 (H) 09/06/2019 Lab Results Component Value Date CHOL 226 (H) 07/07/2020 CHOL 274 (H) 09/06/2019 Lab Results Component Value Date TRIG 350 (H) 07/07/2020 TRIG 225 (H) 09/06/2019 Lab Results Component Value Date HDL 34 (L) 07/07/2020 HDL 46 09/06/2019 No results found for: LDL Nutrition Focused Physical Findings: Current Activity Level: Sedentary- Pt asking what can do to bring down blood sugars more. Encouraged increasing physical activity with light walking [employer]aZO[employer]tube videos Estimated Nutritional Needs: Calorie Needs: 1800kcal (see assessment) Intervention/Education Provided: CHO consistency, exercise, calorie amounts of wt loss. Label reading Patient/Family Education: Learner: patient Readiness: action - ready to set action plan and implement Method: explanation Response: needs reinforcement and verbalizes understanding Education Materials Provided: no new Monitoring/Evaluation: Weight, Food Record/Recall, Meal Planning, Physical Activity, Medication Management, Goal Assessment This note has been communicated to referring healthcare provider. Kendra Harry RDN, ATILIO Office documented in this encounter* Shahida Gray, [facility]IST - 10/03/2019 4:00 PM EST [facility] OUTPATIENT REHABILITATION DAILY TREATMENT NOTE Today's Date 10/03/2019 Patient Name: Oswaldo Morel Date of : 1985 Current Visit #: 10 Authorized Visits: 25 Case Name: Cervical Radiculopathy/ Riht Shoulder Pain History: Pre-Treatment Pain Scale: 3 Symptoms: gradually improved Functional Diagnosis: 1. Acute pain of right shoulder Clinical Information: Subjective: Patient reports she is feeling pretty good today. Tries to get her HEP done at least 1 time a day. Objective Completed exercises as charted. No new additions today. STM with cervical distraction, bicipital groove cross friction and sub occipital release. Treatments: Physical Therapy Exercise Log - 10/03/19 6017 OTHER Notes Right Shoulder/Cervical Pain Therapeutic Exercise ([id number]) Intervention Standing cervical retraction 10 times Parameters Wall flexion stretch 10 times R arm, shoulder rolls Intervention Counter stretch 10 times Parameters Cervical range of motion x 10 each Intervention shoulder isometrics flex, ext, abd 5 x 10 Parameters levator stretches R side x5 Intervention Scapular elevation/depression 10 times at wall with yellow ball. Parameters shoulder stability with bal on wall up and down, side to side 10 times Intervention mB woodchopping and chest press 2# 10 times Parameters Arm swings with 2# weights Intervention Supine chest press, overhead flexion and ER with 4# bar 10 times each Parameters GTB scap retraction, shld ext, IR 10 times each Manual Therapy ([id number]) Intervention suboccipital release and STM 10 minutes PT Treatment Times Therex Total Time 30 Manual Therapy Total Time 10 Direct Treatment Time 40 Total Treatment Time 40 Goals: Physical Therapy Ortho Goals: The patient will have full shoulder and neck ROM without pain within 6 weeks. The patient will be able to work full duty without shoulder pain. The patient will be able to return to normal exercises routine demonstrating normal shoulder function. Patient Education: Verbal HEP with patient demonstrated understanding. Post-Treatment Pain Scale: 2 Assessment: Patient had an expected response to treatment. Skilled Intervention demonstrated by modifications of treatment per exercise log including assessment of patient's response and safety interventions per exercise log. Progress towards goals as expected. Plan for Next Visit: Treatment Visit with focus on functional strength and range of motion. Shahida Gray PTA STATE LICENSE, [id number] documented in this encounter* Antwon Martin CNP - 10/19/2019 1:13 PM EST OFFICE NOTE [facility] [address] ([address]) [facility] [address] [facility] [id number] Physicians: Aaron Leigh MD (Family); No ref. provider found (Referring) Subjective: Oswaldo Morel is a 33 y.o. female seen in the office today for Follow-up of the Neck and Follow-up(POST MRI NECK) . HPI: Shoulder Pain Patient complains of right shoulder pain.The symptoms began several months ago. She has history of right shoulder pin and treatment 4 years ago, but she re injured after fall onto kitchen counter middle of June. Pain is from shoulder down her arm and causes numbness and tingling into her right hand. Aggravating factors: injury while falling in kitchen. Pain is located anterior, lateral, neck, down arm . Discomfort is described as aching, numbness, sharp/stabbing and tingling. Symptoms are exacerbated by repetitive movements, overhead movements and lying on the shoulder. She also complains of occipital headaches and intrascapular burning. She has dropped her coffee cup and is still having numbness in hands. Again emg is negative. This is evaluated as a personal injury. Evaluation to date: none. Therapy to date includes: rest, avoidance of offending activity and OTC analgesics which are not very effective. Cervical Spine Exam: ROM c-spine not limited +/- Paraspinal TTP + Bony TTPC5 - T8 Sensation grossly normal C5 - T1 Motor grossly normal DTR's UE's +2/4 symmetric +Spurling's Maneuver - Martinez's Sign X-Rays: Office films, Cervical 2 Views. Degenerative disc disease and Loss of curvature seen at level:C6 and C7. Possibly due to spasms. Assessment & Plan: MRI cervical spine: IMPRESSION: Examination is somewhat degraded by motion. [id number] right C4-5 paracentral disc herniation, contacts and mildly flattens the right ventral spinal cord. No underlying spinal cord edema. Mild associated central canal narrowing. C5-6 mild disc bulge with mild central canal narrowing. Follow Up Ordered: We discussed possible surgical interventions but that the disc herniation is mild. She would like to live with it at this time and do only conservative treatments as she is finishing grad school currently. I ordered medrol dose valeria and flexeril . We will consider further pT after the holidays if she needs it . Return if symptoms worsen or fail to improve. Histories: Past Medical History: Diagnosis Date Atrial fibrillation (HCC) Disease of thyroid gland Hypertension Osteoarthritis Past Surgical History: Procedure Laterality Date ADENOIDECTOMY TOE SURGERY MRSA TONSILLECTOMY History reviewed. No pertinent family history. Social History Tobacco Use Smoking status: Never Smoker Smokeless tobacco: Never Used Substance Use Topics Alcohol use: Never Frequency: Never Drug use: Never Outpatient Medications as of 10/19/2019 Medication Sig atenolol (TENORMIN) 25 MG tablet Take 12.5 mg by mouth . levothyroxine (SYNTHROID, LEVOTHROID) 112 MCG tablet Take 112 mcg by mouth . lisinopril (PRINIVIL,ZESTRIL) 5 MG tablet meloxicam (MOBIC) 15 MG tablet metFORMIN (GLUCOPHAGE-XR) 500 MG 24 hr tablet TENA'S WORT ORAL Take by mouth . Allergies Allergen Reactions Bee Venom Protein (Honey Bee) Swelling Review of Systems Constitutional: Negative for chills, diaphoresis and fever. Respiratory: Negative for shortness of breath. Cardiovascular: Negative for chest pain, palpitations and leg swelling. Genitourinary: Negative for frequency and urgency. Musculoskeletal: Positive for arthralgias and myalgias. Skin: Negative for color change, rash and wound. Neurological: Negative for dizziness, syncope and weakness. Psychiatric/Behavioral: Negative for agitation. The patient is not nervous/anxious. Overview of Problems Addressed: No problems updated. Objective: Vitals: BP 133/85 Pulse 82 Ht 5' 4 Wt 108.9 kg (240 lb) BMI 41.20 kg/m Physical Exam Constitutional: She is oriented to person, place, and time. She appears well- developed and well-nourished. HENT: Head: Normocephalic and atraumatic. Eyes: Pupils are equal, round, and reactive to light. Neck: Normal range of motion. Neck supple. Cardiovascular: Normal rate and regular rhythm. Pulmonary/Chest: Effort normal and breath sounds normal. Abdominal: Soft. Bowel sounds are normal. Musculoskeletal: General: Tenderness present. Neurological: She is alert and oriented to person, place, and time. She has normal reflexes. Skin: Skin is warm and dry. EMG done EMG Summary: The bilateral median and ulnar motor and sensory nerve conduction studies were normal.The bilateral radial, medial and lateral antebrachial cutaneous sensory nerve conduction studies were also normal. 1. Acute pain of right shoulder 2. Osteoarthritis of spine with radiculopathy, cervical region Antwon Martin CNP documented in this encounter* Connie Holden PTA - 09/16/2019 4:00 PM EDT [facility] OUTPATIENT REHABILITATION DAILY TREATMENT NOTE Today's Date 09/16/2019 Patient Name: Oswaldo Morel Date of : 1985 Current Visit #: 3 Authorized Visits: 25 Case Name: Cervical Radiculopathy/ Riht Shoulder Pain History: Pre-Treatment Pain Scale: 6 Symptoms: mostly stiffness, limited progress Functional Diagnosis: 1. Acute pain of right shoulder Clinical Information: Subjective: Pt states L hand 4th digit has been getting hot and swollen in one spot. Objective Added STM to R upper trap with suboccipital release Treatments: Physical Therapy Exercise Log - 09/16/19 1600 OTHER Notes Right Shoulder/Cervical Pain Therapeutic Exercise (27913) Intervention Standing cervical retraction 10 times Parameters Wall flexion stretch 10 times R arm, shoulder rolls Intervention Counter stretch 10 times Parameters Cervical range of motion x 10 each Intervention shoulder isometrics flex, ext, abd 5 x 10 Parameters levator stretches R side x5 Manual Therapy (80128) Intervention suboccipital release and STM 10 PT Treatment Times Therex Total Time 28 Modalities Total Time 10 Direct Treatment Time 38 Total Treatment Time 45 Goals: Physical Therapy Ortho Goals: The patient will have full shoulder and neck ROM without pain within 6 weeks. The patient will be able to work full duty without shoulder pain. The patient will be able to return to normal exercises routine demonstrating normal shoulder function. Patient Education: Verbal HEP with patient verbalized understanding. Post-Treatment Pain Scale: 4 - 5/10 Assessment: Pt able to tolerate cervical stretching/AROM with tightness felt with STM , Occipital release Patient had an expected response to treatment. Skilled Intervention demonstrated by modifications of treatment per exercise log including increased intensity and safety interventions per exercise log. Progress towards goals as expected. Plan for Next Visit: Treatment Visit with focus on cervical flexibility, pain relief and light strengthening Connie Holedn PTA STATE LICENSE, [id number] documented in this encounter* Kendra Harry, RD - 02/04/2021 4:37 PM EST Patient Name: Oswaldo Morel Patient : 1985 Primary Care Provider: Aaron Leigh MD Referred By: Aaron Leigh MD Referral Diagnosis: Diabetes Type 2 Met with pt via telehealth video visit. Pt consented to telehealth treatment. Start Time: 1600 End Time: 1635 Nutrition Diagnosis: Pt with physical inactivity related to lack of time/good weather as evidenced by pt recall. Nutrition Goals: I will walk 30 minutes 3-5 times a week. I will continue to work on consistent carbohydrate content at meals and keep eating out to 1-2 times a week. Follow Up: Follow up appointment scheduled by patient Assessment: Pt reports continues with three meals a day and occasional snack <200kcal. Incorporating nonstarchy vegetables to lunch and dinner daily, whole grains with brown rice and oatmeal. Foodrecall shows good understanding of meal planning and balance of macronutrients. Reason for Visit: wt loss Support Person Present: none Height: 64 Current Weight: 257# BMI: 44-class III obesity Weight History: pt demonstrating good wt loss with 4# in 4 weeks. Weighing self weekly Wt Readings from Last 5 Encounters: 05/09/20 113.4 kg (250 lb) 12/27/19 113.4 kg (250 lb) 12/20/19 113.4 kg (250 lb) 12/20/19 113.4 kg (250 lb) 12/14/19 111.1 kg (245 lb) Diet History/Recall: 3 meals with occasional snack Food Purchase/Prep: self Breakfast: oatmeal, almond milk, cinnamon, light yogurt, berries Lunch: brown rice, peppers, teriyaki sauce Dinner: pot roast, carrots, potatoes, zoodles Snacks: keto bar- 180kcal- as needed Daily Fluids: water or coffee with splenda Alcohol use: none Meals Away From Home: 1-2 times a week PMHx: Past Medical History: Diagnosis Date Atrial fibrillation (HCC) Disease of thyroid gland Hypertension Osteoarthritis osteoarthritis Current/Pertinent Medications: no changes noted Lab Values: States FBS averaging in meter at 147. This is won from 160-170 range. Lab Results Component Value Date HGBA1C 6.9 (H) 07/07/2020 HGBA1C 5.9 (H) 09/06/2019 Lab Results Component Value Date CHOL 226 (H) 07/07/2020 CHOL 274 (H) 09/06/2019 Lab Results Component Value Date TRIG 350 (H) 07/07/2020 TRIG 225 (H) 09/06/2019 Lab Results Component Value Date HDL 34 (L) 07/07/2020 HDL 46 09/06/2019 No results found for: LDL Nutrition Focused Physical Findings: Current Activity Level: Lightly Active- moving, starting to walk dogs Estimated Nutritional Needs: Calorie Needs: 1800kcal (see assessment) Intervention/Education Provided: Exercise, meal planning, snacking Patient/Family Education: Learner: patient Readiness: action - ready to set action plan and implement Method: explanation Response: needs reinforcement and verbalizes understanding Education Materials Provided: no new Monitoring/Evaluation: Weight, Food Record/Recall, Meal Planning, Physical Activity, Medication Management, Goal Assessment This note has been communicated to referring healthcare provider. Kendra Harry RDN, LD Office documented in this encounter* Renate Verma, PT - 10/07/2019 4:00 PM EST [facility] OUTPATIENT REHABILITATION DAILY TREATMENT NOTE Today's Date 10/07/2019 Patient Name: Oswaldo Morel Date of : 1985 Current Visit #: 12 Authorized Visits: 25 Case Name: Cervical Radiculopathy/ Riht Shoulder Pain History: Pre-Treatment Pain Scale: 2 Symptoms: gradually improved Functional Diagnosis: 1. Acute pain of right shoulder Clinical Information: Subjective: Patient reports had no shoulder pain this a.m. 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 Side Bend Loss: 25% Treatments: Physical Therapy Exercise Log - 10/07/19 1555 OTHER Notes Right Shoulder/Cervical Pain Vitals 3:55- Therapeutic Exercise (66331) Intervention Standing cervical retraction 10 times Parameters Cervical range of motion x 10 each Intervention Scapular elevation/depression 10 times at wall with yellow ball. Parameters shoulder stability with bal on wall up and down, side to side 10 times Intervention mB woodchopping and chest press 2# 10 times Intervention Supine chest press, overhead flexion and ER with 4# bar 10 times each Manual Therapy (61532) Intervention suboccipital release and STM 10 minutes Goals: Physical Therapy Ortho Goals: The patient will have full shoulder and neck ROM without pain within 6 weeks.(10/07/19, MET) The patient will be able to work full duty without shoulder pain.(10/07/19, MET, does have Tingling in thumb at times, but mostly no pain) The patient will be able to return to normal exercises routine demonstrating normal shoulder function. Patient Education: Quality of movement with patient verbalized understanding. Post-Treatment Pain Scale: 1 Assessment: Patient had an expected response to treatment. Skilled Intervention demonstrated by modifications of treatment per exercise log including Review of HEP and safety interventions per exercise log. Progress towards goals as expected. Plan for Next Visit: Hold Patient reports is waiting to here about MRI reports. Will hold PT with possible d/c. Renate Verma PT State License, [id number] documented in this encounter* Mirna Blankenship, MARBELLA - 02/05/2019 1:19 PM EST Chief Complaint Patient presents with Sinus Problem Seen for sinus infection 3 weeks ago. Finished antibiotic, never completly better. C/O sinus congestion, left ear pain, cough and sore throat. Worse x 2 days SUBJECTIVE 33 y.o. female presents Sinus Problem (Seen for sinus infection 3 weeks ago. Finished antibiotic, never completly better. C/O sinus congestion, left ear pain, cough and sore throat. Worse x 2 days) Pt has been sick for appx 5 weeks. She was seen her about 3 weeks ago for a sinus infection and wastx with cefdinir and saw some improvement in her symptoms but they never completely subsided. She currently c/o b/l frontal sinus pain/pressure with headache, non-productive cough, sore throat and sinus drng. She denies any fever or chills. She has been using flonase and mucinex OTC. MEDICAL ISSUES Past Medical History: Diagnosis Date Atrial fibrillation (HCC) Disease of thyroid gland Hypertension Osteoarthritis There is no problem list on file for this patient. SOCIAL HISTORY Social History Socioeconomic History Marital status: Single Spouse name: Not on file Number of children: Not on file Years of education: Not on file Highest education level: Not on file Social Needs Financial resource strain: Not on file Food insecurity - worry: Not on file Food insecurity - inability: Not on file Transportation needs - medical: Not on file Transportation needs - non-medical: Not on file Occupational History Not on file Tobacco Use Smoking status: Never Smoker Smokeless tobacco: Never Used Substance and Sexual Activity Alcohol use: Never Frequency: Never Drug use: Never Sexual activity: Not on file Other Topics Concern Not on file Social History Narrative Not on file FAMILY HISTORY History reviewed. No pertinent family history. REVIEW OF SYSTEMS Review of Systems Constitutional: Negative for chills and fever. HENT: Positive for congestion, ear pain, postnasal drip, sinus pressure, sinus pain and sore throat. Negative for ear discharge and trouble swallowing. Respiratory: Positive for cough. Negative for shortness of breath and wheezing. Cardiovascular: Negative for chest pain. Gastrointestinal: Negative for diarrhea, nausea and vomiting. Skin: Negative for rash. Neurological: Positive for headaches. MEDICATIONS PRIOR TO VISIT Current Outpatient Medications on File Prior to Visit Medication Sig Dispense Refill atenolol (TENORMIN) 25 MG tablet Take 12.5 mg by mouth . levothyroxine (SYNTHROID, LEVOTHROID) 112 MCG tablet Take 112 mcg by mouth . lisinopril (PRINIVIL,ZESTRIL) 5 MG tablet meloxicam (MOBIC) 15 MG tablet TENA'S WORT ORAL Take by mouth . metFORMIN (GLUCOPHAGE-XR) 500 MG 24 hr tablet No current facility-administered medications on file prior to visit. ALLERGIES/INTOLERANCES Allergies Allergen Reactions Bee Venom Protein (Honey Bee) Swelling OBJECTIVE BP 138/81 Pulse 70 Temp 98.4 F (36.9 C) (Oral) Ht 5' 4 Wt 108.9 kg (240 lb) LMP 01/16/2019 Comment: LMP start date BMI 41.20 kg/m Physical Exam Constitutional: She is oriented to person, place, and time. She appears well- developed and well-nourished. HENT: Right Ear: No tenderness. Tympanic membrane is bulging. Tympanic membrane is not erythematous. Left Ear: No tenderness. Tympanic membrane is bulging. Tympanic membrane is not erythematous. Nose: Mucosal edema present. Right sinus exhibits frontal sinus tenderness. Right sinus exhibits nomaxillary sinus tenderness. Left sinus exhibits frontal sinus tenderness. Left sinus exhibits no maxillary sinus tenderness. Mouth/Throat: Mucous membranes are normal. Posterior oropharyngeal erythema present. No oropharyngeal exudate. Cardiovascular: Normal rate, regular rhythm and normal heart sounds. No murmur heard. Pulmonary/Chest: Effort normal and breath sounds normal. No respiratory distress. She has no wheezes. Neurological: She is alert and oriented to person, place, and time. Skin: Skin is warm and dry. No rash noted. Psychiatric: She has a normal mood and affect. Her behavior is normal. PROCEDURE Procedures Results No results found for this or any previous visit (from the past 168 hour(s)). ASSESSMENT/PLAN (expressed as patient instructions): SNOMED CT(R) 1. Frontal sinusitis, unspecified chronicity FRONTAL SINUSITIS amoxicillin- clavulanate (AUGMENTIN) 875-125 mg per tablet Return if symptoms worsen or fail to improve. ADDITIONAL CLINICAL COMMENTS No notes on file ORDERS PLACED THIS VISIT No orders of the defined types were placed in this encounter. MEDICATION LIST AT END OF VISIT Current Outpatient Medications Medication Sig Dispense Refill atenolol (TENORMIN) 25 MG tablet Take 12.5 mg by mouth . levothyroxine (SYNTHROID, LEVOTHROID) 112 MCG tablet Take 112 mcg by mouth . lisinopril (PRINIVIL,ZESTRIL) 5 MG tablet meloxicam (MOBIC) 15 MG tablet TENA'S WORT ORAL Take by mouth . amoxicillin-clavulanate (AUGMENTIN) 875-125 mg per tablet Take 1 (one) tablet by mouth 2 (two) times a day for 14 days . 28 tablet 0 metFORMIN (GLUCOPHAGE-XR) 500 MG 24 hr tablet No current facility-administered medications for this visit. in this encounter* Christiana Young PA-C - 01/20/2019 3:11 PM EST PATIENT NAME: Oswaldo Morel [facility] [address] [place] [id number] : 1985 DATE OF VISIT: 01/20/2019 #: [id number] PROVIDER: Christiana Young PA-C Chief Complaint Patient presents with Sinusitis Sinus congestion x 2 weeks without relief of OTC medications. SUBJECTIVE 33 y.o. female presents Sinusitis (Sinus congestion x 2 weeks without relief of OTC medications.) The pt presents with c/o continued frontal sinus pain/pressure for 2 wks after URI onset. Now with purulent nasal discharge, sometimes bloody. No sinus surgery hx. The pt is otherwise healthy. 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 Sinusitis This is a new problem. The current episode started 1 to 4 weeks ago. The problem has been graduallyworsening since onset. There has been no fever. Her pain is at a severity of 4/10. The pain is mild. Associated symptoms include congestion, coughing, headaches, sinus pressure and sneezing. Pertinent negatives include no chills, diaphoresis, ear pain, hoarse voice, neck pain, shortness of breath, sore throat or swollen glands. (Headache= frontal sinus region only per pt. slpac) Treatments tried:flonase and mucinex. The treatment provided mild relief. MEDICAL ISSUES Past Medical History: Diagnosis Date Atrial fibrillation (HCC) Disease of thyroid gland Hypertension Osteoarthritis There is no problem list on file for this patient. SOCIAL HISTORY Social History Socioeconomic History Marital status: Single Spouse name: Not on file Number of children: Not on file Years of education: Not on file Highest education level: Not on file Social Needs Financial resource strain: Not on file Food insecurity - worry: Not on file Food insecurity - inability: Not on file Transportation needs - medical: Not on file Transportation needs - non-medical: Not on file Occupational History Not on file Tobacco Use Smoking status: Never Smoker Smokeless tobacco: Never Used Substance and Sexual Activity Alcohol use: Never Frequency: Never Drug use: Never Sexual activity: Not on file Other Topics Concern Not on file Social History Narrative Not on file FAMILY HISTORY History reviewed. No pertinent family history. REVIEW OF SYSTEMS Review of Systems Constitutional: Negative for chills, diaphoresis, fever and unexpected weight change. HENT: Positive for congestion, postnasal drip, rhinorrhea, sinus pressure, sinus pain and sneezing.Negative for ear pain, hoarse voice, mouth sores, nosebleeds, sore throat, tinnitus, trouble swallowing and voice change. Eyes: Negative for photophobia, pain, discharge, redness and visual disturbance. Respiratory: Positive for cough. Negative for shortness of breath. Cardiovascular: Negative for chest pain, palpitations and leg swelling. Gastrointestinal: Negative for abdominal pain, diarrhea, nausea and vomiting. Genitourinary: Negative for dysuria and hematuria. Musculoskeletal: Negative for myalgias, neck pain and neck stiffness. Neurological: Positive for headaches. Negative for dizziness, syncope, speech difficulty and weakness. Hematological: Does not bruise/bleed easily. MEDICATIONS PRIOR TO VISIT Current Outpatient Medications on File Prior to Visit Medication Sig Dispense Refill atenolol (TENORMIN) 25 MG tablet Take 12.5 mg by mouth . levothyroxine (SYNTHROID, LEVOTHROID) 112 MCG tablet Take 112 mcg by mouth . lisinopril (PRINIVIL,ZESTRIL) 5 MG tablet meloxicam (MOBIC) 15 MG tablet TENA'S WORT ORAL Take by mouth . No current facility-administered medications on file prior to visit. ALLERGIES/INTOLERANCES Allergies Allergen Reactions Bee Venom Protein (Honey Bee) Swelling OBJECTIVE BP 128/84 (BP Location: Right arm, Patient Position: Sitting, BP Cuff Size: Adult) Pulse 89 Temp 98.1 F (36.7 C) (Oral) Resp 18 Ht 5' 4 Wt 109.3 kg (241 lb) LMP 01/16/2019 Comment: LMP start date SpO2 98% BMI 41.37 kg/m Physical Exam Constitutional: She is oriented to person, place, and time. She appears well- developed and well-nourished. No distress. HENT: Head: Normocephalic and atraumatic. Right Ear: Hearing, external ear and ear canal normal. Tympanic membrane is bulging. A middle ear effusion is present. Left Ear: Hearing, external ear and ear canal normal. Tympanic membrane is bulging. A middle ear effusion is present. Nose: Mucosal edema, rhinorrhea and septal deviation present. No epistaxis. No foreign bodies. Right sinus exhibits frontal sinus tenderness. Right sinus exhibits no maxillary sinus tenderness. Left sinus exhibits frontal sinus tenderness. Left sinus exhibits no maxillary sinus tenderness. Mouth/Throat: Uvula is midline and mucous membranes are normal. Mucous membranes are not dry and not cyanotic. No oral lesions. No trismus in the jaw. No uvula swelling. Posterior oropharyngeal erythema present. No oropharyngeal exudate, posterior oropharyngeal edema or tonsillar abscesses. No tragal or mastoid ttp bilat. Pt handles own oral secretions well. No drooling, tripoding, stridor, wheezing, painful or abnl resps, speech dyspnea, trismus. Uvula and tongue are midline w/o edema. Lips and fingertips acyanotic. slpac Eyes: Pupils are equal, round, and reactive to light. Conjunctivae and EOM are normal. Right eye exhibits no discharge. Left eye exhibits no discharge. No scleral icterus. Neck: Normal range of motion. Neck supple. No neck rigidity. Cardiovascular: Normal rate, regular rhythm, normal heart sounds and intact distal pulses. Exam reveals no gallop and no friction rub. No murmur heard. Pulmonary/Chest: Effort normal and breath sounds normal. No respiratory distress. She has no wheezes. She has no rales. She exhibits no tenderness. Abdominal: Soft. Normal appearance and bowel sounds are normal. There is no hepatosplenomegaly. Musculoskeletal: Normal range of motion. She exhibits no edema, tenderness or deformity. Lymphadenopathy: She has no cervical adenopathy. Neurological: She is alert and oriented to person, place, and time. No cranial nerve deficit. Coordination normal. Skin: Skin is warm and dry. No rash noted. She is not diaphoretic. Psychiatric: She has a normal mood and affect. Her behavior is normal. Judgment and thought contentnormal. Nursing note and vitals reviewed. PROCEDURE Procedures Results No results found for this or any previous visit (from the past 168 hour(s)). ASSESSMENT/PLAN (expressed as patient instructions): SNOMED CT(R) 1. Acute non-recurrent frontal sinusitis ACUTE FRONTAL SINUSITIS 2. Cough COUGH Return if symptoms worsen or fail to improve. ADDITIONAL CLINICAL COMMENTS ORDERS PLACED THIS VISIT No orders of the defined types were placed in this encounter. MEDICATION LIST AT END OF VISIT Current Outpatient Medications Medication Sig Dispense Refill atenolol (TENORMIN) 25 MG tablet Take 12.5 mg by mouth . levothyroxine (SYNTHROID, LEVOTHROID) 112 MCG tablet Take 112 mcg by mouth . lisinopril (PRINIVIL,ZESTRIL) 5 MG tablet meloxicam (MOBIC) 15 MG tablet cefdinir (OMNICEF) 300 MG capsule Take 1 (one) capsule (300 mg total) by mouth 2 (two) times a day for 10 days . 20 capsule 0 guaiFENesin (MUCINEX) 600 mg 12 hr tablet Take 1 (one) tablet (600 mg total) by mouth 2 (two) timesa day for 10 days . 20 tablet 0 TENA'S WORT ORAL Take by mouth . No current facility-administered medications for this visit. MDM: Omnicef x 10 days, mucinex x 10 days. Fluids. Vit C daily and f/u with pcp should symptoms onto resolve in 10 days. Any worsening symptoms or concerns, return for recheck. Pt is nontoxic, afebrile, w/o ams and verbalized good understanding and agreement. slpac in this encounter* Shahida Gray PTA - 09/28/2019 4:00 PM EDT [facility] OUTPATIENT REHABILITATION DAILY TREATMENT NOTE Today's Date 09/28/2019 Patient Name: Oswaldo Morel Date of : 1985 Current Visit #: 8 Authorized Visits: 25 Case Name: Cervical Radiculopathy/ Riht Shoulder Pain History: Pre-Treatment Pain Scale: shoulder 3, neck 5 Symptoms: stabilized Functional Diagnosis: 1. Acute pain of right shoulder Clinical Information: Subjective: Patient just had MD follow-up and is going to have a MRI. She feels neck is very stiff today so rates it as 5/10. Objective Completed exercises as charted. Performed mild cross friction massage to bicipital groove on right shoulder followed by k-tape x guevara the spot for trial of pain relief. Treatments: Physical Therapy Exercise Log - 09/28/19 1601 OTHER Notes Right Shoulder/Cervical Pain Therapeutic Exercise (48518) Intervention Standing cervical retraction 10 times Parameters Wall flexion stretch 10 times R arm, shoulder rolls Intervention Counter stretch 10 times Parameters Cervical range of motion x 10 each Intervention shoulder isometrics flex, ext, abd 5 x 10 Parameters levator stretches R side x5 Intervention Scapular elevation/depression 10 times at wall with yellow ball. Parameters shoulder stability with bal on wall up and down, side to side 10 times Intervention mB woodchopping and chest press 2# 10 times Manual Therapy (59728) Intervention suboccipital release and STM 10 minutes PT Treatment Times Therex Total Time 30 Manual Therapy Total Time 10 Direct Treatment Time 40 Total Treatment Time 45 Goals: Physical Therapy Ortho Goals: The patient will have full shoulder and neck ROM without pain within 6 weeks. The patient will be able to work full duty without shoulder pain. The patient will be able to return to normal exercises routine demonstrating normal shoulder function. Patient Education: Verbal HEP with patient demonstrated understanding. Post-Treatment Pain Scale: neck 3 Assessment: Patient had an expected response to treatment. Skilled Intervention demonstrated by modifications of treatment per exercise log including assessment of patient's response and safety interventions per exercise log. Progress towards goals as expected. Patient reports relief following session but symptoms continue to return. Plan for Next Visit: Treatment Visit with focus on postural strength and awareness. Shahida Gray PTA STATE LICENSE, [id number] documented in this encounter Assessments Diagnosis Cervical radiculopathy Brachial neuritis or radiculitis nos Chronic right shoulder pain Pain in joint, shoulder region Diagnosis Cervical radiculopathy Brachial neuritis or radiculitis nos Chronic right shoulder pain Pain in joint, shoulder region Diagnosis Acute pain of right shoulder- Primary Diagnosis Acute pain of right shoulder- Primary Diagnosis Acute pain of right shoulder- Primary Diagnosis Cervical radiculopathy- Primary Brachial neuritis or radiculitis nos Diagnosis Acute pain of right shoulder- Primary Diagnosis Cervical radiculopathy Brachial neuritis or radiculitis nos Diagnosis Cervical radiculopathy Brachial neuritis or radiculitis nos Diagnosis Chronic right-sided thoracic back pain Diagnosis Cervical dystonia Spasmodic torticollis Diagnosis Nausea Nausea alone Chronic scapular pain Acute right-sided back pain, unspecified back location Hypercholesterolemia Pure hypercholesterolemia Hypertriglyceridemia Pure hyperglyceridemia Diagnosis Chest wall pain Painful respiration Hypertension, unspecified type Diagnosis Palpitation Palpitations Diagnosis Acute URI Acute upper respiratory infections of unspecified site Diagnosis Precordial pain Palpitations Shortness of breath Diagnosis Pierced ear infection, right, initial encounter Diagnosis Paronychia of right index finger- Primary Diagnosis Cervical radiculopathy- Primary Brachial neuritis or radiculitis nos Acute pain of right shoulder Diagnosis Pierced ear infection, left, initial encounter- Primary Diagnosis Strain of lumbar region, initial encounter- Primary Diagnosis Cervical dystonia- Primary Spasmodic torticollis Diagnosis Acute pain of right shoulder- Primary Diagnosis Acute pain of right shoulder- Primary Diagnosis Diabetes mellitus without complication (HCC) Type II or unspecified type diabetes mellitus without mention of complication, not stated as uncontrolled Diagnosis Acute pain of right shoulder- Primary Diagnosis Acute pain of right shoulder Osteoarthritis of spine with radiculopathy, cervical region Diagnosis Acute pain of right shoulder- Primary Diagnosis Cervical radiculopathy Brachial neuritis or radiculitis nos Diagnosis Frontal sinusitis, unspecified chronicity- Primary Diagnosis Acute non-recurrent frontal sinusitis- Primary Cough Diagnosis Acute pain of right shoulder- Primary Instructions * Patient Instructions* Meghna Santos, [facility] - 12/08/2019 1:50 PM EST Back Pain: Care Instructions Your Care Instructions Back pain has many possible causes. It is often related to problems with muscles and ligaments of the back. It may also be related to problems with the nerves, discs, or bones of the back. Moving, lifting, standing, sitting, or sleeping in an awkward way can strain the back. Sometimes you don't notice the injury until later. Arthritis is another common cause of back pain. Although it may hurt a lot, back pain usually improves on its own within several weeks. Most peoplerecover in 12 weeks or less. Using good home treatment and being careful not to stress your back can help you feel better sooner. Follow-up care is a craig part of your treatment and safety. Be sure to make and go to all appointments, and call your doctor if you are having problems. It's also a good idea to know your test resultsand keep a list of the medicines you take. How can you care for yourself at home? Sit or lie in positions that are most comfortable and reduce your pain. Try one of these positions when you lie down: ? Lie on your back with your knees bent and supported by large pillows. ? Lie on the floor with your legs on the seat of a sofa or chair. ? Lie on your side with your knees and hips bent and a pillow between your legs. ? Lie on your stomach if it does not make pain worse. Do not sit up in bed, and avoid soft couches and twisted positions. Bed rest can help relieve pain at first, but it delays healing. Avoid bed rest after the first day of back pain. Change positions every 30 minutes. If you must sit for long periods of time, take breaks from sitting. Get up and walk around, or lie in a comfortable position. Try using a heating pad on a low or medium setting for 15 to 20 minutes every 2 or 3 hours. Try a warm shower in place of one session with the heating pad. You can also try an ice pack for 10 to 15 minutes every 2 to 3 hours. Put a thin cloth between the ice pack and your skin. Take pain medicines exactly as directed. ? If the doctor gave you a prescription medicine for pain, take it as prescribed. ? If you are not taking a prescription pain medicine, ask your doctor if you can take an hxse-yuj-khknrhw medicine. Take short walks several times a day. You can start with 5 to 10 minutes, 3 or 4 times a day, and work up to longer walks. Walk on level surfaces and avoid hills and stairs until your back is better. Return to work and other activities as soon as you can. Continued rest without activity is usually not good for your back. To prevent future back pain, do exercises to stretch and strengthen your back and stomach. Learn how to use good posture, safe lifting techniques, and proper body mechanics. When should you call for help? Call your doctor now or seek immediate medical care if: You have new or worsening numbness in your legs. You have new or worsening weakness in your legs. (This could make it hard to stand up.) You lose control of your bladder or bowels. Watch closely for changes in your health, and be sure to contact your doctor if: You have a fever, lose weight, or don't feel well. You do not get better as expected. Where can you learn more? Log into your personal health record on https://DocSpera.Anjuke and enter I594 in the Education box to learn more about Back Pain: Care Instructions. Current as of: May 25, 2019 Content Version: 12.3 3430-8497 One [employer]. Care instructions adapted under license by your healthcare professional. If you have questions about a medical condition or this instruction, always ask your healthcare professional. [employer] disclaims any warranty or liability for your use of this information. Follow up in three to five days if unimproved. Go to the Emergency Department if symptoms worsen. Schedule follow up with your specialist for follow up. documented in this encounter* Patient Instructions* Christiana Young PA-C - 12/20/2019 2:41 PM EST Oswaldo, ANY WORSENING SYMPTOMS--ER!!! F/u with estate tax examiner as discussed; Give this 6-12 hours; If nausea and pain does not resolve with meds or if your symptoms worsen--ER!! EKG--NSR CHEST XRAY--NEG Urine is neg for infection. Follow up with your pcp in 2-3 days for recheck. Get better! Chest Pain: Care Instructions Your Care Instructions There are many things that can cause chest pain. Some are not serious and will get better on their own in a few days. But some kinds of chest pain need more testing and treatment. Your doctor may have recommended a follow-up visit in the next 8 to 12 hours. If you are not getting better, you may need more tests or treatment. Even though your doctor has released you, you still need to watch for any problems. The doctor carefully checked you, but sometimes problems can develop later. If you have new symptoms or if your symptoms do not get better, get medical care right away. If you have worse or different chest pain or pressure that lasts more than 5 minutes or you passed out (lost consciousness), call 911 or seek other emergency help right away. A medical visit is only one step in your treatment. Even if you feel better, you still need to do what your doctor recommends, such as going to all suggested follow-up appointments and taking medicines exactly as directed. This will help you recover and help prevent future problems. How can you care for yourself at home? Rest until you feel better. Take your medicine exactly as prescribed. Call your doctor if you think you are having a problem with your medicine. Do not drive after taking a prescription pain medicine. When should you call for help? Call 911 if: You passed out (lost consciousness). You have severe difficulty breathing. You have symptoms of a heart attack. These may include: ? Chest pain or pressure, or a strange feeling in your chest. ? Sweating. ? Shortness of breath. ? Nausea or vomiting. ? Pain, pressure, or a strange feeling in your back, neck, jaw, or upper belly or in one or both shoulders or arms. ? Lightheadedness or sudden weakness. ? A fast or irregular heartbeat. After you call 911, the directional drill operator may tell you to chew 1 adult-strength or 2 to 4 low-dose aspirin. Wait for an ambulance. Do not try to drive yourself. Call your doctor today if: You have any trouble breathing. Your chest pain gets worse. You are dizzy or lightheaded, or you feel like you may faint. You are not getting better as expected. You are having new or different chest pain. Where can you learn more? Log into your personal health record on https://Phizzbot[employer].LikeMe.Net and enter A120 in the Education box to learn more about Chest Pain: Care Instructions. Current as of: May 25, 2019 Content Version: 12.3 5506-0388 One Hour Translation. Care instructions adapted under license by your healthcare professional. If you have questions about a medical condition or this instruction, always ask your healthcare professional. [employer] disclaims any warranty or liability for your use of this information. Nausea and Vomiting: Care Instructions Your Care Instructions When you are nauseated, you may feel weak and sweaty and notice a lot of saliva in your mouth. Nausea often leads to vomiting. Most of the time you do not need to worry about nausea and vomiting, butthey can be signs of other illnesses. Two common causes of nausea and vomiting are stomach flu and food poisoning. Nausea and vomiting from viral stomach flu will usually start to improve within 24 hours. Nausea and vomiting from food poisoning may last from 12 to 48 hours. The doctor has checked you carefully, but problems can develop later. If you notice any problems ornew symptoms, get medical treatment right away. Follow-up care is a craig part of your treatment and safety. Be sure to make and go to all appointments, and call your doctor if you are having problems. It's also a good idea to know your test resultsand keep a list of the medicines you take. How can you care for yourself at home? To prevent dehydration, drink plenty of fluids, enough so that your urine is light yellow or clear like water. Choose water and other caffeine-free clear liquids until you feel better. If you have kidney, heart, or liver disease and have to limit fluids, talk with your doctor before you increase the amount of fluids you drink. Rest in bed until you feel better. When you are able to eat, try clear soups, mild foods, and liquids until all symptoms are gone for 12 to 48 hours. Other good choices include dry toast, crackers, cooked cereal, and gelatin dessert, such as Jell-O. When should you call for help? Call 911 anytime you think you may need emergency care. For example, call if: You passed out (lost consciousness). Call your doctor now or seek immediate medical care if: You have symptoms of dehydration, such as: ? Dry eyes and a dry mouth. ? Passing only a little dark urine. ? Feeling thirstier than usual. You have new or worsening belly pain. You have a new or higher fever. You vomit blood or what looks like coffee grounds. Watch closely for changes in your health, and be sure to contact your doctor if: You have ongoing nausea and vomiting. Your vomiting is getting worse. Your vomiting lasts longer than 2 days. You are not getting better as expected. Where can you learn more? Log into your personal health record on https://[email or web address].LikeMe.Net and enter H591 in the Education box to learn more about Nausea and Vomiting: Care Instructions. Current as of: May 25, 2019 Content Version: 12.3 6308-4276 One Hour Translation. Care instructions adapted under license by your healthcare professional. If you have questions about a medical condition or this instruction, always ask your healthcare professional. [employer] disclaims any warranty or liability for your use of this information. documented in this encounter* Patient Instructions* Noemi Robin, [employer] SERVICES COORDINATOR-[employer] - 05/15/2020 4:55 PM EDT Infection From Body Piercings: Care Instructions Your Care Instructions An infected piercing can be serious. The area around your piercing may be painful, swollen, red, and hot. You may see red streaks or pus at the piercing site. You may have a fever. Or you may have swollen or tender lymph nodes. It's important to take good care of your infection at home so it doesn't get worse. Follow-up care is a craig part of your treatment and safety. Be sure to make and go to all appointments, and call your doctor if you are having problems. It's also a good idea to know your test resultsand keep a list of the medicines you take. How can you care for yourself at home? If your doctor prescribed antibiotics, take them as directed. Do not stop taking them just because you feel better. You need to take the full course of antibiotics. Remove the jewelry unless your doctor says it's okay to keep it in. Soak the area in warm water for20 minutes, 3 or 4 times a day. If it's too hard to soak the site (for example, if you had your belly button pierced), apply a warm, moist cloth instead. If your doctor told you how to care for your infected piercing, follow your doctor's instructions. If you did not get instructions, follow this general advice: ? Wash the area with clean water 2 times a day. Don't use hydrogen peroxide or alcohol, which can slow healing. ? You may cover the area with a thin layer of petroleum jelly, such as Vaseline, and a nonstick bandage. ? Apply more petroleum jelly and replace the bandage as needed. Ask your doctor if you can take an joke-mtn-aowkzcj pain medicine, such as acetaminophen (Tylenol),ibuprofen (Advil, Motrin), or naproxen (Aleve). Be safe with medicines. Read and follow all instructions on the label. When should you call for help? Call your doctor now or seek immediate medical care if: You lose feeling in the area near the piercing, or it feels numb or tingly. The skin near the piercing turns pale or cool. The pierced area starts to bleed, and blood soaks through the bandage. Oozing small amounts of blood is normal. Watch closely for changes in your health, and be sure to contact your doctor if: Your symptoms are getting worse. Where can you learn more? Go to http://www.[employer]ine[employer].edu/patiented. Enter G637 in the search box to learn more about 'Infection From Body Piercings: Care Instructions.' Interested in seeing a video go to [email or web address]/videolibrary to see all video content. Current as of: May 25, 2019 Content Version: 12.5 One Hour Translation. Care instructions adapted under license by your healthcare professional. If you have questions about a medical condition or this instruction, always ask your healthcare professional. [employer] disclaims any warranty or liability for your use of this information. documented in this encounter* Patient Instructions* Lula High PA - 07/11/2020 5:35 PM EDT Paronychia: Care Instructions Your Care Instructions Paronychia (say myno-rk-TZ-kevin-uh) is an infection of the skin around a fingernail or toenail. Ithappens when germs enter through a break in the skin. The doctor may have made a small cut in the infected area to drain the pus. Most cases of paronychia improve in a few days. But watch your symptoms and follow your doctor's advice. Though rare, a mild case can turn into something more serious and infect your entire finger ortoe. Also, it is possible for an infection to return. Follow-up care is a craig part of your treatment and safety. Be sure to make and go to all appointments, and call your doctor if you are having problems. It's also a good idea to know your test resultsand keep a list of the medicines you take. How can you care for yourself at home? If your doctor told you how to care for your infected nail, follow the doctor's instructions. If you did not get instructions, follow this general advice: ? Wash the area with clean water 2 times a day. Don't use hydrogen peroxide or alcohol, which can slow healing. ? You may cover the area with a thin layer of petroleum jelly, such as Vaseline, and a nonstick bandage. ? Apply more petroleum jelly and replace the bandage as needed. If your doctor prescribed antibiotics, take them as directed. Do not stop taking them just because you feel better. You need to take the full course of antibiotics. Take an sbvj-iaw-lwgdujz pain medicine, such as acetaminophen (Tylenol), ibuprofen (Advil, Motrin),or naproxen (Aleve). Read and follow all instructions on the label. Do not take two or more pain medicines at the same time unless the doctor told you to. Many pain medicines have acetaminophen, which is Tylenol. Too much acetaminophen (Tylenol) can be harmful. Prop up the toe or finger so that it is higher than the level of your heart. This will help with pain and swelling. Apply heat. Put a warm water bottle, heating pad set on low, or warm cloth on your finger or toe. Do not go to sleep with a heating pad on your skin. Soak the area in warm water twice a day for 15 minutes each time. After soaking, dry the area well and apply a thin layer of petroleum jelly, such as Vaseline. Put on a new bandage. When should you call for help? Call your doctor now or seek immediate medical care if: You have signs of new or worsening infection, such as: ? Increased pain, swelling, warmth, or redness. ? Red streaks leading from the infected skin. ? Pus draining from the area. ? A fever. Watch closely for changes in your health, and be sure to contact your doctor if: You do not get better as expected. Where can you learn more? Go to http://www.Pine[employer].edu/patiented. Enter C435 in the search box to learn more about 'Paronychia: Care Instructions.' Interested in seeing a video go to [email or web address]/videolibrary to see all video content. Current as of: September 29, 2019 Content Version: 12.5 One Hour Translation. Care instructions adapted under license by your healthcare professional. If you have questions about a medical condition or this instruction, always ask your healthcare professional. [employer] disclaims any warranty or liability for your use of this information. documented in this encounter* Patient Instructions* Brit Sapp, MARBELLA - 12/02/2020 12:35 PM EST Strain or Sprain: Care Instructions Your Care Instructions A strain happens when you overstretch, or pull, a muscle. A sprain occurs when you stretch or tear a ligament, the tough tissue that connects one bone to another. These problems can happen when you exercise or lift something or when you are in an accident. Rest and other home care can help strains and sprains heal. The doctor has checked you carefully, but problems can develop later. If you notice any problems ornew symptoms, get medical treatment right away. Follow-up care is a craig part of your treatment and safety. Be sure to make and go to all appointments, and call your doctor if you are having problems. It's also a good idea to know your test resultsand keep a list of the medicines you take. How can you care for yourself at home? If your doctor gave you a sling, splint, brace, or immobilizer, use it exactly as directed. Rest the strained or sprained area, and follow your doctor's advice about when you can be active again. Put ice or a cold pack on the sore area for 10 to 20 minutes at a time to stop swelling. Try this every 1 to 2 hours for 3 days (when you are awake) or until the swelling goes down. Put a thin cloth between the ice pack and your skin. Keep your splint or brace dry. Prop up a sore arm or leg on a pillow when you ice it or anytime you sit or lie down. Try to keep it higher than the level of your heart. This will help reduce swelling. Take pain medicines exactly as directed. ? If the doctor gave you a prescription medicine for pain, take it as prescribed. ? If you are not taking a prescription pain medicine, ask your doctor if you can take an iolk-hzf-gvjzvod medicine. Do exercises as directed by your doctor or physical therapist. Return to your usual level of activity slowly. Do not do anything that makes the pain worse. When should you call for help? Call your doctor now or seek immediate medical care if: You have severe or increasing pain. You have tingling, weakness, or numbness in the area. The area turns cold or changes color. Your cast or splint feels too tight. You have symptoms of a blood clot, such as: ? Pain in your calf, back of the knee, thigh, or groin. ? Redness and swelling in your leg or groin. You cannot move the strained part of your body. Watch closely for changes in your health, and be sure to contact your doctor if: You do not get better as expected. Where can you learn more? Go to http://www.Pinevio.[employer].edu/patiented. Enter H024 in the search box to learn more about 'Strain or Sprain: Care Instructions.' Interested in seeing a video go to [email or web address]/videolibrary to see all video content. Current as of: January 30, 2020 Content Version: 12.7 One Hour Translation. Care instructions adapted under license by your healthcare professional. If you have questions about a medical condition or this instruction, always ask your healthcare professional. [employer] disclaims any warranty or liability for your use of this information. documented in this encounter* Patient Instructions* Mirna Blankenship CNP - 02/05/2019 1:28 PM EST Sinusitis: Care Instructions Your Care Instructions Sinusitis is an infection of the lining of the sinus cavities in your head. Sinusitis often followsa cold. It causes pain and pressure in your head and face. In most cases, sinusitis gets better on its own in 1 to 2 weeks. But some mild symptoms may last for several weeks. Sometimes antibiotics are needed. Follow-up care is a craig part of your treatment and safety. Be sure to make and go to all appointments, and call your doctor if you are having problems. It's also a good idea to know your test resultsand keep a list of the medicines you take. How can you care for yourself at home? Take an pxnb-vzg-fzellih pain medicine, such as acetaminophen (Tylenol), ibuprofen (Advil, Motrin),or naproxen (Aleve). Read and follow all instructions on the label. If the doctor prescribed antibiotics, take them as directed. Do not stop taking them just because you feel better. You need to take the full course of antibiotics. Be careful when taking iqit-qvr-vahelqv cold or flu medicines and Tylenol at the same time. Many ofthese medicines have acetaminophen, which is Tylenol. Read the labels to make sure that you are nottaking more than the recommended dose. Too much acetaminophen (Tylenol) can be harmful. Breathe warm, moist air from a steamy shower, a hot bath, or a sink filled with hot water. Avoid cold, dry air. Using a humidifier in your home may help. Follow the directions for cleaning the machine. Use saline (saltwater) nasal washes to help keep your nasal passages open and wash out mucus and bacteria. You can buy saline nose drops at a grocery store or drugstore. Or you can make your own at home by adding 1 teaspoon of salt and 1 teaspoon of baking soda to 2 cups of distilled water. If you make your own, fill a bulb syringe with the solution, insert the tip into your nostril, and squeeze gently. Blow your nose. Put a hot, wet towel or a warm gel pack on your face 3 or 4 times a day for 5 to 10 minutes each time. Try a decongestant nasal spray like oxymetazoline (Afrin). Do not use it for more than 3 days in a row. Using it for more than 3 days can make your congestion worse. When should you call for help? Call your doctor now or seek immediate medical care if: You have new or worse swelling or redness in your face or around your eyes. You have a new or higher fever. Watch closely for changes in your health, and be sure to contact your doctor if: You have new or worse facial pain. The mucus from your nose becomes thicker (like pus) or has new blood in it. You are not getting better as expected. Where can you learn more? Log into your personal health record on https://SpectraSciencehart.Anjuke and enter I933 in the Education box to learn more about Sinusitis: Care Instructions. Current as of: February 23, 2018 Content Version: 11.9 8378-4944 One Hour Translation. Care instructions adapted under license by your healthcare professional. If you have questions about a medical condition or this instruction, always ask your healthcare professional. One [employer] Translation disclaims any warranty or liability for your use of this information. Take antibiotics as prescribed until complete. Continue to use flonase over the counter. in this encounter* Patient Instructions* Christiana Young PA-C - 01/20/2019 3:09 PM EST Sandra, Push fluids. Vit C 1,000mg daily when sick, then 500mg daily when not sick. Vit D3 1,000IU daily. Honey by the tablespoon (as long as you are not allergic). Any worsening symptoms, please return for recheck. If symptoms do not resolve in 10 days, f/u with your pcp. Sinusitis: Care Instructions Your Care Instructions Sinusitis is an infection of the lining of the sinus cavities in your head. Sinusitis often followsa cold. It causes pain and pressure in your head and face. In most cases, sinusitis gets better on its own in 1 to 2 weeks. But some mild symptoms may last for several weeks. Sometimes antibiotics are needed. Follow-up care is a craig part of your treatment and safety. Be sure to make and go to all appointments, and call your doctor if you are having problems. It's also a good idea to know your test resultsand keep a list of the medicines you take. How can you care for yourself at home? Take an bymt-ffl-jdmzsbg pain medicine, such as acetaminophen (Tylenol), ibuprofen (Advil, Motrin),or naproxen (Aleve). Read and follow all instructions on the label. If the doctor prescribed antibiotics, take them as directed. Do not stop taking them just because you feel better. You need to take the full course of antibiotics. Be careful when taking gvtx-pbc-fpnbsgv cold or flu medicines and Tylenol at the same time. Many ofthese medicines have acetaminophen, which is Tylenol. Read the labels to make sure that you are nottaking more than the recommended dose. Too much acetaminophen (Tylenol) can be harmful. Breathe warm, moist air from a steamy shower, a hot bath, or a sink filled with hot water. Avoid cold, dry air. Using a humidifier in your home may help. Follow the directions for cleaning the machine. Use saline (saltwater) nasal washes to help keep your nasal passages open and wash out mucus and bacteria. You can buy saline nose drops at a grocery store or drugstore. Or you can make your own at home by adding 1 teaspoon of salt and 1 teaspoon of baking soda to 2 cups of distilled water. If you make your own, fill a bulb syringe with the solution, insert the tip into your nostril, and squeeze gently. Blow your nose. Put a hot, wet towel or a warm gel pack on your face 3 or 4 times a day for 5 to 10 minutes each time. Try a decongestant nasal spray like oxymetazoline (Afrin). Do not use it for more than 3 days in a row. Using it for more than 3 days can make your congestion worse. When should you call for help? Call your doctor now or seek immediate medical care if: You have new or worse swelling or redness in your face or around your eyes. You have a new or higher fever. Watch closely for changes in your health, and be sure to contact your doctor if: You have new or worse facial pain. The mucus from your nose becomes thicker (like pus) or has new blood in it. You are not getting better as expected. Where can you learn more? Log into your personal health record on [email or web address] and enter I933 in the Education box to learn more about Sinusitis: Care Instructions. Current as of: February 23, 2018 Content Version: 11.9 9786-9623 [employer]. Care instructions adapted under license by your healthcare professional. If you have questions about a medical condition or this instruction, always ask your healthcare professional. [employer] disclaims any warranty or liability for your use of this information. in this encounter Reason for Referral Status Reason Specialty Diagnoses / Procedures Referred By Contact Referred To Contact Authorized Specialty Services Required/Patien t's Best Interest Cardiology Diagnoses Nausea Acute right-sided back pain, unspecified back location Christiana Young PA-C [address] [facility] [address] [place] [address] Annette Patton MD [address] [place] [address] Status Reason Specialty Diagnoses / Procedures Referred By Contact Referred To Contact Authorized Cardiology Diagnoses Nausea Chronic scapular pain Acute right-sided back pain, unspecified back location Procedures ECG 12 Lead Christiana Young PA-C [address] [place] [address] [address] [place] [address] Status Reason Specialty Diagnoses / Procedures Referred By Contact Referred To Contact Pending Review Cardiology Diagnoses Palpitation Procedures Holter monitor - 24 hour Aaron Leigh MD [address] [place] [address] Status Reason Specialty Diagnoses / Procedures Referred By Contact Referred To Contact Closed Cardiovascular Medicine Diagnoses Precordial pain Palpitations Shortness of breath Procedures ECG, TREADMILL STRESS (NON-IMAGING) RI CV STRS TST XERS&/OR RX CONT ECG W/SI&R Guillermo Khalil II, MD [address] [place] [address] [facility] Cardiology [facility] [address] [place] [address] Status Reason Specialty Diagnoses / Procedures Referre d By Contact Referred To Contact Closed Radiology Diagnoses Cervical radiculopathy Procedures MR Cervical Spine Without Contrast Antwon Martin, VICE PRESIDENT [employer] [address] [place] [address] Specialty Diagnoses / Procedures Referred By Contac t Referred To Contact Diagnoses Sleep apnea, unspecified type Snoring Insomnia, unspecified type Morning headache Difficulty concentrating Fatigue, unspecified type Hypersomnia, unspecified Bruxism Procedures SLEEP STUDY - TITRATION Coreen Lanier, MEMBER SERVICES COORDINATOR-VICE PRESIDENT [employer] [address] [phone] Referral ID Status Reason Start Date Expiration Date V isits Requested Visits Authorized [id number] New Request 07/25/2021 08/19/2022 1 1 Specialty Diagnoses / Procedures Referred By Contac t Referred To Contact Diagnoses Sleep apnea, unspecified type Snoring Insomnia, unspecified type Morning headache Difficulty concentrating Fatigue, unspecified type Hypersomnia, unspecified Bruxism Procedures SLEEP STUDY - DIAGNOSTIC Coreen Lanier, MEMBER SERVICES COORDINATOR-VICE PRESIDENT [employer] [address] [phone] Referral ID Status Reason Start Date Expiration Date V isits Requested Visits Authorized [id number] New Request 07/25/2021 08/19/2022 1 1 Specialty Diagnoses / Procedures Referred By Contac t Referred To Contact Procedures US ABDOMEN RUQ/LIVER/GB Gaurang Crowley MEMBER SERVICES COORDINATOR-VICE PRESIDENT [employer] [address] [place] [address] Referral ID Status Reason Start Date Expiration Date V isits Requested Visits Authorized [id number] New Request 01/17/2024 02/10/2025 1 1 Specialty Diagnoses / Procedures Referred By Contac t Referred To Contact Diagnoses RUQ abdominal pain Procedures US ABDOMEN RUQ/LIVER/GB Carmen Mckeon PA-C [address] [place] [address] Referral ID Status Reason Start Date Expiration Date V isits Requested Visits Authorized [id number] New Request 01/21/2024 02/14/2025 1 1 Specialty Diagnoses / Procedures Referred By Contac t Referred To Contact Diagnoses Kidney stone Procedures US RENAL RETROPERITONEAL Elisabeth Gregg, MEMBER SERVICES COORDINATOR-VICE PRESIDENT [employer] [address] [place], [place] [address] Referral ID Status Reason Start Date Expiration Date V isits Requested Visits Authorized [id number] New Request 01/29/2024 02/22/2025 1 1 Referral ID Status Reason Start Date Expiration Date Visits Re quested Visits Authorized [id number] Closed 01/21/2024 02/14/2025 1 1 Specialty Diagnoses / Procedures Referred By Contac t Referred To Contact Computerized Tomography Scan Diagnoses Kidney stone Gross hematuria Procedures CT ABDOMEN/PELVIS WITHOUT CONTRAST CHG CT SCAN,ABDOMENT AND PELVIS,W/O CONTRAST Elisabeth Gregg, MEMBER SERVICES COORDINATOR-VICE PRESIDENT [employer] [address] [place], [place] [address] [facility] [address] [place] [phone] Referral ID Status Reason Start Date Expiration Date Visits Re quested Visits Authorized [id number] Closed 02/24/2024 03/20/2025 1 1 Specialty Diagnoses / Procedures Referred By Contac t Referred To Contact Diagnoses RUQ pain Procedures NUC HEPATOBILIARY WITH EJECTION FRACTION RI HEPATOBIL SYST IMAG INC GB W/PHARMA INTERVENAaron Gordon DO [address] [place] [address] Referral ID Status Reason Start Date Expiration Date V isits Requested Visits Authorized [id number] New Request 03/04/2024 03/29/2025 1 1 Specialty Diagnoses / Procedures Referred By Contac t Referred To Contact Diagnoses Kidney stone Procedures US RENAL RETROPERITONEAL Robson Parnell MD [address] [place] [address] Referral ID Status Reason Start Date Expiration Date V isits Requested Visits Authorized [id number] Auth Not Needed 03/28/2024 04/22/2025 1 1 Referral ID Status Reason Start Date Expiration Date Visits Re quested Visits Authorized [id number] Closed 03/04/2024 03/29/2025 1 1 Referral ID Status Reason Start Date Expiration Date Visits Re quested Visits Authorized [id number] Closed 03/28/2024 04/22/2025 1 1 Specialty Diagnoses / Procedures Referred By Contac t Referred To Contact Physical Therapy Diagnoses Posterior tibial tendinitis of right lower extremity Posterior tibial tendon dysfunction, bilateral Swiatek, Brit Mcgrath, DPM [address] [place] [address] [facility] [address] [address] Referral ID Status Reason Start Date Expiration Date V isits Requested Visits Authorized [id number] New Request 05/24/2024 06/18/2025 1 1 Specialty Diagnoses / Procedures Referred By Contac t Referred To Contact Procedures ECG Rob Gomez MD [address] [place] [address] Referral ID Status Reason Start Date Expiration Date V isits Requested Visits Authorized [id number] New Request 07/08/2024 08/02/2025 1 1 Specialty Diagnoses / Procedures Referred By Contac t Referred To Contact Diagnoses Precordial pain Dizziness and giddiness Essential hypertension, benign Morbid obesity Family history of cardiovascular disease Paroxysmal atrial fibrillation Abnormal electrocardiogram Procedures ECHOCARDIOGRAM PHARMACOLOGICAL STRESS TEST RI ECHO TTHRC R-T 2D W/WO M-MODE REST&STRS CONT ECG RI DOP ECHOCARD PULSE WAVE W/SPECTRAL F-UP/LMTD STD RI DOP ECHOCARD COLOR FLOW VELOCITY MAPPING RI ECHO TTHRC R-T 2D W/WO M-MODE COMPLETE REST&ST Durga IIGuillermo MD [address] [place] [address] Referral ID Status Reason Start Date Expiration Date Visits Re quested Visits Authorized [id number] Closed 07/13/2024 08/07/2025 1 1 Specialty Diagnoses / Procedures Referred By Contac t Referred To Contact Diagnoses History of nephrolithiasis Procedures US RENAL RETROPERITONEAL Omid Coffey, VICE PRESIDENT [employer] [address] [place] [address] Referral ID Status Reason Start Date Expiration Date V isits Requested Visits Authorized [id number] New Request 11/07/2024 12/02/2025 1 1 Discharge Instructions * Instructions* Jose Mott MD - 12/20/2019 Patient to follow up with PCP in 1-2 days or return here at any time for new, worse or persistent symptoms. Patient to read and follow all pharmacy instructions for medication, if any questions ask the pharmacist, their PCP or return here If prescribed opiate pain meds please try medications with fewer side effects and less addictive properties such as Tylenol or Ibuprofen do not take Tylenol with the opiate pain meds * Attachments The following attachments cannot be sent through Care Everywhere. 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 TESTER HELPER) March 24, 2025 11: 59am OVARIAN CYST FOLLOW UP March 30, 2025 7:3 0am F/U US FROM OVARIAN CYST May 12, 2025 4:37pm Reason for Visit Admit Date Depression March 24, 2025 11: 59am High cholesterol March 24, 2025 11: 59am Hypothyroidism March 24, 2025 11: 59am Kidney stones March 24, 2025 11: 59am Ovarian cyst, complex March 24, 2025 1 1:59am Type 2 diabetes mellitus March 24 11:59am Hypertension March 24, 2025 11: 59am Encounter for routine gynecological exam ination March 24, 2025 11:59am Chief Complaint Admit Date Annual (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 TESTER HELPER) March 24, 2025 11: 59am OVARIAN CYST FOLLOW UP March 30, 2025 7:3 0am F/U US FROM OVARIAN CYST May 12, 2025 4:37pm fu on US results *copay $30 May 19, 2 025 1:58pm Chief Complaint Admit Date Annual (RELAY TESTER HELPER) March 24, 2025 11: 59am OVARIAN CYST FOLLOW UP March 30, 2025 7:3 0am F/U US FROM OVARIAN CYST May 12, 2025 4:37pm fu on US results *copay $30 May 19, 2 025 1:58pm Mirena Insertion *Copay $30 June 30, 2025 9:20am Reason for Visit Admit Date Depression March 24, 2025 11: 59am High cholesterol March 24, 2025 11: 59am Hypothyroidism March 24, 2025 11: 59am Kidney stones March 24, 2025 11: 59am Ovarian cyst, complex March 24, 2025 1 1:59am Type 2 diabetes mellitus March 24 11:59am Hypertension March 24, 2025 11: 59am Encounter for routine gynecological exam ination March 24, 2025 11:59am Ovarian cyst, complex May 19, 2025 1: 58pm Chief Complaint Admit Date F/U US FROM OVARIAN CYST May 12, 2025 4:37pm fu on US results *copay $30 May 19, 2 025 1:58pm Mirena Insertion *Copay $30 June 30, 2025 9:20am 5 WK STRING CHECK $30 copay July 9:20am Reason for Visit Admit Date Ovarian cyst, complex May 19, 2025 1: 58pm Encounter for IUD insertion June 30, 2025 9:20am Contraceptive management August 01, 2025 9:20am Hirsutism August 01, 2025 9:20am Additional Source Comments INFORMATION SOURCE (unrecogn ized section and content) DATE CREATED AUTHOR 05/20/2018 [facility] DATE CREATED AUTHOR AUTHOR'S ORGANIZ ATION 08/03/2018 [facility] DATE CREATED AUTHOR AUTHOR'S ORGANIZ ATION 12/24/2019 [facility] DATE CREATED AUTHOR AUTHOR'S ORGANIZ ATION 09/24/2022 [facility] DATE CREATED AUTHOR AUTHOR'S ORGANIZ ATION 07/10/2024 [facility] DATE CREATED AUTHOR AUTHOR'S ORGANIZ ATION 09/28/2024 [facility] DATE CREATED AUTHOR AUTHOR'S ORGANIZ ATION 01/15/2025 [facility] DATE CREATED AUTHOR AUTHOR'S ORGANIZ ATION 06/16/2025 [facility] DATE CREATED AUTHOR AUTHOR'S ORGANIZ ATION 07/07/2025 [facility] DATE CREATED AUTHOR AUTHOR'S ORGANIZ ATION 08/01/2025 [facility] Reason for Visit (unrecogniz ed section and content) Reason Comments Abdominal Pain Specialty Diagnoses / Procedures Referred By Rey oseguera Referred To Contact General Surgery Diagnoses RUQ abdominal pain Carmen Mckeon PA-C [address] [facility] [place] [address] [place] [address] Aaron Colbert DO [address] [place] [address] Referral ID Status Reason Start Date Expiration Date Visits Re quested Visits Authorized [id number] Open 02/11/2024 03/07/2025 1 1 Reason Comments Physical Therapy Specialty Diagnoses / Procedures Referred By Contac t Referred To Contact Rehabilitation Diagnoses Chronic left SI joint pain Antwon Martin CNP [address] [place] [address] [facility] [place] [address] [place] [phone] Referral ID Status Reason Start Date Expiration Date V isits Requested Visits Authorized [id number] Authorized 06/23/2022 06/23/2023 12 25 Status Reason Specialty Diagnoses / Procedures Referred By Contact Referred To Contact Authorized Specialty Services Required/Patie nt's Best Interest Physical Therapy / Rehabilitation Diagnoses Cervical radiculopathy Chronic right shoulder pain Antwon Martin CNP [address] [place] [address] [facility] [address] [place] [address] Status Reason Specialty Diagnoses / Procedures Referred By Contact Referred To Contact Closed Specialty Services Required/Patient' s Best Interest Neurology Diagnoses Cervical radiculopathy Chronic right shoulder pain Antwon Martin CNP [address] [place] [address] Bill Arboleda MD [address] [place] [address] Reason Comments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 [address] PCP - General Family Medicine 02/05/19 Mold Dumper Relationship Specialty Start Date End Date Aaron Leigh MD [address] [place] [address] PCP - General Family Medicine 02/05/19 Mold Dumper Relationship Specialty Start Date End Date Tomchak, Aaron Brayan PCP - General Family Medicine 12/23/16 Mold Dumper Relationship Specialty Start Date End Date Aaron Leigh MD [address] [place] [address] PCP - General Family Medicine 02/05/19 Mold Dumper Relationship Specialty Start Date End Date Aaron Leigh MD PCP - General Family Medicine 02/11/20 Mold Dumper Relationship Specialty Start Date End Date Aaron Leigh MD [address] [place] [address] PCP - General Family Medicine 02/05/19 Mold Dumper Relationship Specialty Start Date End Date Aaron Leigh MD PCP - General Family Medicine 02/11/20 Mold Dumper Relationship Specialty Start Date End Date Aaron Leigh MD PCP - General Family Medicine 02/11/20 Mold Dumper Relationship Specialty Start Date End Date Aaron Leigh MD [address] [place] [address] PCP - General Family Medicine 02/05/19 Mold Dumper Relationship Specialty Start Date End Date Aaron Leigh MD [address] [place] [address] PCP - General Family Medicine 02/05/19 Mold Dumper Relationship Specialty Start Date End Date Aaron Leigh MD [address] [place] [address] PCP - General Family Medicine 02/05/19 Mold Dumper Relationship Specialty Start Date End Date Aaron Leigh MD [address] [place] [address] PCP - General Family Medicine 02/05/19 Mold Dumper Relationship Specialty Start Date End Date Aaron Leigh MD PCP - General Family Medicine 02/11/20 Mold Dumper Relationship Specialty Start Date End Date Aaron Leigh MD PCP - General Family Medicine 02/11/20 Mold Dumper Relationship Specialty Start Date End Date Aaron Leigh MD [address] [place] [address] PCP - General Family Medicine 02/05/19 Mold Dumper Relationship Specialty Start Date End Date Carmen Mckeon PA-C [address] [place], [place] [id number] PCP - General Physician Massage Therapist 11/05/23 Mold Dumper Relationship Specialty Start Date End Date Carmen Mckeon PA-C [address] [place] [address] PCP - General Physician Massage Therapist 11/05/23 Mold Dumper Relationship Specialty Start Date End Date Aaron Leigh MD [address] [place] [address] PCP - General Family Medicine 02/05/19 Mold Dumper Relationship Specialty Start Date End Date Carmen Mckeon PA-C [address] [place] [id number] PCP - General Physician Massage Therapist 11/05/23 Mold Dumper Relationship Specialty Start Date End Date Carmen Mckeon PA-C [address] [place] [address] PCP - General Physician Massage Therapist 11/05/23 Mold Dumper Relationship Specialty Start Date End Date Carmen Mckeon PA-C [address] [place] [address] PCP - General Physician Massage Therapist 11/05/23 Mold Dumper Relationship Specialty Start Date End Date Carmen Mckeon PA-C [address] [place] [address] PCP - General Physician Massage Therapist 11/05/23 Mold Dumper Relationship Specialty Start Date End Date Carmen Mckeon PA-C [address] [place] [address] PCP - General Physician Massage Therapist 11/05/23 Mold Dumper Relationship Specialty Start Date End Date Carmen Mckeon PA-C [address] [place] [address] PCP - General Physician Massage Therapist 11/05/23 Mold Dumper Relationship Specialty Start Date End Date Aaron Leigh MD [address] [place] [address] PCP - General Family Medicine 02/05/19 Mold Dumper Relationship Specialty Start Date End Date Carmen Mckeon PA-C [address] [place] [address] PCP - General Physician Massage Therapist 11/05/23 Mold Dumper Relationship Specialty Start Date End Date Carmen Mckeon PA-C [address] [place] [address] PCP - General Physician Massage Therapist 11/05/23 Mold Dumper Relationship Specialty Start Date End Date Carmen Mckeon PA-C [address] [place] [address] PCP - General Physician Massage Therapist 11/05/23 Mold Dumper Relationship Specialty Start Date End Date Carmen Mckeon PA-C [address] [place] [address] PCP - General Physician Massage Therapist 11/05/23 Mold Dumper Relationship Specialty Start Date End Date Carmen Mckeon PA-C [address] [place] [address] PCP - General Physician Massage Therapist 11/05/23 Mold Dumper Relationship Specialty Start Date End Date Carmen Mckeon PA-C [address] [place] [address] PCP - General Physician Massage Therapist 11/05/23 Mold Dumper Relationship Specialty Start Date End Date Carmen Mckeon PA-C [address] [place] [address] PCP - General Physician Massage Therapist 11/05/23 Mold Dumper Relationship Specialty Start Date End Date Carmen Mckeon PA-C [address] [place] [address] PCP - General Physician Massage Therapist 11/05/23 Mold Dumper Relationship Specialty Start Date End Date Carmen Mckeon PA-C [address] [place] [address] 1940[address] PCP - General Physician Massage Therapist 11/05/23 Mold Dumper Relationship Specialty Start Date End Date Carmen Mckeon PA-C [address] [place] [address] PCP - General Physician Massage Therapist 11/05/23 Mold Dumper Relationship Specialty Start Date End Date Aaron Leigh MD [address] [place] [address] PCP - General Family Medicine 02/05/19 Mold Dumper Relationship Specialty Start Date End Date Carmen Mckeon PA-C [address] [place] [address] PCP - General Physician Massage Therapist 11/05/23 Mold Dumper Relationship Specialty Start Date End Date Aaron Leigh MD [address] [place] [address] PCP - General Family Medicine 02/05/19 Mold Dumper Relationship Specialty Start Date End Date Carmen Mckeon PA-C [address] [place] [address] PCP - General Physician Massage Therapist 11/05/23 Mold Dumper Relationship Specialty Start Date End Date Carmen Mckeon PA-C [address] [place] [address] PCP - General Physician Massage Therapist 11/05/23 Mold Dumper Relationship Specialty Start Date End Date Carmen Mckeon PA-C [address] [place] [address]71 PCP - General Physician Massage Therapist 11/05/23 Mold Dumper Relationship Specialty Start Date End Date Aaron Leigh MD [address] [place] [address] PCP - General Family Medicine 02/05/19 Mold Dumper Relationship Specialty Start Date End Date Carmen Mckeon PA-C [address] [place] [address] PCP - General Physician Massage Therapist 11/05/23 Mold Dumper Relationship Specialty Start Date End Date Carmen Mckeon PA-C [address] [place] [address] PCP - General Physician Massage Therapist 11/05/23 Mold Dumper Relationship Specialty Start Date End Date Carmen Mckeon PA-C [address] [place] [address] PCP - General Physician Massage Therapist 11/05/23 Mold Dumper Relationship Specialty Start Date End Date Carmen Mckeon PA-C [address] [place] [address] PCP - General Physician Massage Therapist 11/05/23 Mold Dumper Relationship Specialty Start Date End Date Carmen Mckoen PA-C [address] [place] [address] 15[address] PCP - General Physician Massage Therapist 11/05/23 Mold Dumper Relationship Specialty Start Date End Date Carmen Mckeon PA-C [address] [place] [address] PCP - General Physician Massage Therapist 11/05/23 Mold Dumper Relationship Specialty Start Date End Date Carmen Mckeon PA-C [address] [place] [address] PCP - General Physician Massage Therapist 11/05/23 Mold Dumper Relationship Specialty Start Date End Date Aaron Leigh MD [address] [place] [address] PCP - General Family Medicine 02/05/19 Mold Dumper Relationship Specialty Start Date End Date Aaron Leigh MD [address] [place] [address] PCP - General Family Medicine 02/05/19 Mold Dumper Relationship Specialty Start Date End Date Carmen Mckeon PA-C [address] [place] [id number] PCP - General Physician Massage Therapist 11/05/23 Coreen Lanier, MEMBER SERVICES COORDINATOR-VICE PRESIDENT [employer] [address] [place] [address] Nurse Practitioner Sleep Medicine 12/01/24 Mold Dumper Relationship Specialty Start Date End Date Carmen Mckeon PA-C [address] [place] [id number] PCP - General Physician Massage Therapist 11/05/23 Coreen Lanier, MEMBER SERVICES COORDINATOR-VICE PRESIDENT [employer] [address] [place] [address] Nurse Practitioner Sleep Medicine 12/01/24 Mold Dumper Relationship Specialty Start Date End Date Carmen Mckeon PA-C [address] [place] [id number] PCP - General Physician Massage Therapist 11/05/23 Coreen Lanier, MEMBER SERVICES COORDINATOR-VICE PRESIDENT [employer] [address] [place] [address] Nurse Practitioner Sleep Medicine 12/01/24 Mold Dumper Relationship Specialty Start Date End Date Aaron Leigh MD [address] [place] [address] PCP - General Family Medicine 02/05/19 Mold Dumper Relationship Specialty Start Date End Date Carmen Mckeon PA-C [address] [place] [id number] PCP - General Physician Massage Therapist 11/05/23 Coreen Lanier, MEMBER SERVICES COORDINATOR-VICE PRESIDENT [employer] [address] [place] [address] Nurse Practitioner Sleep Medicine 12/01/24 Mold Dumper Relationship Specialty Start Date End Date Aaron Leigh MD [address] [place] [address] PCP - General Family Medicine 02/05/19 Mold Dumper Relationship Specialty Start Date End Date Aaron Leigh MD [address] [place] [address] PCP - General Family Medicine 02/05/19 Mold Dumper Relationship Specialty Start Date End Date Aaron Leigh MD [address] [place] [address] PCP - General Family Medicine 02/05/19 Mold Dumper Relationship Specialty Start Date End Date Carmen Mckeon PA-C [address] [place] [id number] PCP - General Physician Massage Therapist 11/05/23 Coreen Lanier, MEMBER SERVICES COORDINATOR-VICE PRESIDENT [employer] [address] [place] [address] Nurse Practitioner Sleep Medicine 12/01/24 Mold Dumper Relationship Specialty Start Date End Date Aaron Leigh MD [address] [place] [address] PCP - General Family Medicine 02/05/19 Mold Dumper Relationship Specialty Start Date End Date Aaron Leigh MD [address] [place] [address] PCP - General Family Medicine 02/05/19 Mold Dumper Relationship Specialty Start Date End Date Aaron Leigh MD [address] [place] [address] PCP - General Family Medicine 02/05/19 Mold Dumper Relationship Specialty Start Date End Date Carmen Mckeon PA-C [address] [place] [id number] PCP - General Physician Massage Therapist 11/05/23 Coreen Lanier, MEMBER SERVICES COORDINATOR-VICE PRESIDENT [employer] [address] [place] [address] Nurse Practitioner Sleep Medicine 12/01/24 Team Status: Active Member Role Status Dates CARMEN MCKEON Primary Care Provider Active Team Status: Inactive Member Role Status Dates Dr. Millicent Cervantes DO Attending Provider Activ e Start: March 24, 2025 End: March 24, 2025 Team Status: Inactive Member Role Status Dates Dr. Millicent Cervantes DO Attending Provider Activ e Start: March 24, 2025 End: March 24, 2025 Dr. Millicent Cervantes DO Referring Provider Activ e Start: March 24, 2025 End: March 24, 2025 Team Status: Inactive Member Role Status Dates Dr. Millicent Cervantes DO Attending Provider Activ e Start: March 30, 2025 End: March 30, 2025 Dr. Millicent Cervantes DO Referring Provider Activ e Start: March 30, 2025 End: March 30, 2025 Team Status: Inactive Member Role Status Dates Dr. Millicent Cervantes DO Attending Provider Activ e Start: May 12, 2025 End: May 12, 2025 Dr. Millicent Cervantes DO Referring Provider Activ e Start: May 12, 2025 End: May 12, 2025 MIKE PAUL Primary Care Provider Active St art: May 12, 2025 End: May 12, 2025 Team Status: Inactive Member Role Status Dates Dr. Millicent Cervantes DO Attending Provider Activ e Start: May 19, 2025 End: May 19, 2025 MIKE PAUL Primary Care Provider Active St art: May 19, 2025 End: May 19, 2025 MIKE PAUL Referring Provider Active Start : May 19, 2025 End: May 19, 2025 Mold Dumper Relationship Specialty Start Date End Date Aaron Leigh MD [address] [place] [address] PCP - General Family Medicine 02/05/19 Mold Dumper Relationship Specialty Start Date End Date Carmen Mckeon PA-C [address] [place] [address] PCP - General Physician Massage Therapist 11/05/23 Coreen Lanier, MEMBER SERVICES COORDINATOR-VICE PRESIDENT [employer] [address] [place] [address] Nurse Practitioner Sleep Medicine 12/01/24 Mold Dumper Relationship Specialty Start Date End Date Aaron Leigh MD [address] [place] [address] PCP - General Family Medicine 02/05/19 Team Status: Inactive Member Role/Relationship Status Dates Dr. Millicent Cervantes DO Attending Provider Activ e Start: March 24, 2025 End: March 24, 2025 Team Status: Inactive Member Role/Relationship Status Dates Dr. Millicent Cervantes DO Attending Provider Activ e Start: March 24, 2025 End: March 24, 2025 Dr. Millicent Cervantes DO Referring Provider Activ e Start: March 24, 2025 End: March 24, 2025 Team Status: Inactive Member Role/Relationship Status Dates Dr. Millicent Cervantes DO Attending Provider Activ e Start: March 30, 2025 End: March 30, 2025 Dr. Millicent Cervantes DO Referring Provider Activ e Start: March 30, 2025 End: March 30, 2025 Team Status: Inactive Member Role/Relationship Status Dates Dr. Millicent Cervantes DO Attending Provider Activ e Start: May 12, 2025 End: May 12, 2025 Dr. Millicent Cervantes DO Referring Provider Activ e Start: May 12, 2025 End: May 12, 2025 MIKE PAUL Primary Care Provider Active St art: May 12, 2025 End: May 12, 2025 Team Status: Inactive Member Role/Relationship Status Dates Dr. Millicent Cervantes DO Attending Provider Activ e Start: May 19, 2025 End: May 19, 2025 MIKE PAUL Primary Care Provider Active St art: May 19, 2025 End: May 19, 2025 MIKE PAUL Referring Provider Active Start : May 19, 2025 End: May 19, 2025 Team Status: Inactive Member Role/Relationship Status Dates Dr. Millicent Cervantes DO Attending Provider Activ e Start: June 30, 2025 End: June 30, 2025 Team Status: Inactive Member Role/Relationship Status Dates Dr. Millicent Cervantes DO Attending Provider Activ e Start: May 12, 2025 End: May 12, 2025 Dr. Millicent Cervantes DO Referring Provider Activ e Start: May 12, 2025 End: May 12, 2025 MIKE PAUL Primary Care Provider Active St art: May 12, 2025 End: May 12, 2025 Team Status: Inactive Member Role/Relationship Status Dates Dr. Millicent Cervantes DO Attending Provider Activ e Start: May 19, 2025 End: May 19, 2025 MIKE PAUL Primary Care Provider Active St art: May 19, 2025 End: May 19, 2025 MIKE PAUL Referring Provider Active Start : May 19, 2025 End: May 19, 2025 Team Status: Inactive Member Role/Relationship Status Dates Dr. Millicent Cervantes DO Attending Provider Activ e Start: June 30, 2025 End: June 30, 2025 Team Status: Inactive Member Role/Relationship Status Dates Dr. Millicent Cervantes DO Attending Provider Activ e Start: August 01, 2025 End: August 01, 2025 Source Comments (unrecognize d section and content) In the event this informatio n is protected by the Federal Confidentiality of Alcohol and Drug Abuse Patient Records regulations: The Federal rules restrict any use of the information to criminally investigate or prosecute any alcohol or drug abuse patient.[facility] Goals (unrecognized section and content) Goals may be documented in a n alternate sectionGoals may be documented in an alternate sectionGoals may be documented in an alternate sectionGoals may be documented in an alternate section FOR RECORDS PERTAINING TO PATIENTS WHO ARE OR HAVE BEEN ENROLLED IN A CHEMICAL DEPENDENCY/SUBSTANCEABUSE PROGRAM, SOME INFORMATION MAY BE OMITTED. This clinical summary was aggregated from multiple sources. Caution should be exercised in using it in the provision of clinical care. This summary normalizes information from multiple sources, and as a consequence, information in this document may materially change the coding, format and clinical context of patient data. In addition, data may be omitted in some cases. CLINICAL DECISIONS SHOULD BE BASED ON THE PRIMARY CLINICAL RECORDS. [facility]. provides no warranty or guarantee of the accuracy or completeness of information in this document.
== END | disposition home or self-care (01) ==
LOC: LAB 10:29
PROVIDERS: Referring Provider Obstetrics & Gynecology; Visit Provider Obstetrics & Gynecology
DX: L68.0 Hirsutism (principal)
CPT/HCPCS: 36415; 82627; 82626